=== PATIENT | female | born 1985 | race Caucasian/White ===

== ENCOUNTER 2021-06-14 18:36 | Emergency (ER) | payer OTHER, SELFPAY ==
[2021-06-14 18:49] VITALS: BP 106/76; PULSE 100; RESP 16; TEMP 37; O2SAT 100
--- NOTE | 2021-06-14 18:58 | ED.ABDPAIN ---
HPI - Abdominal Pain General Chief Complaint: Abdominal Pain Stated Complaint: abdomen pain Time Seen by Provider: 06/14/21 18:58 Source: patient Mode of arrival: ambulatory Limitations: no limitations History of Present Illness HPI narrative: 35-year-old female presents with complaint of epigastric pain for 4 days. States that initial pain started as hunger pain so she ate and then 20 minutes later would still feel hungry and she would eat again. States now she is no longer having hunger pains but is having sharp, squeezing epigastric pain. Patient is consistently belching, holding epigastric area. States she had normal bowel movement this morning. Coworkers gave her Zofran today at work due to nausea. Patient took test this a.m. and was negative. No abdominal surgery history other than . Afebrile. All systems reviewed and negative except as noted above. Related Data Home Medications Medication Instructions Recorded Confirmed duloxetine [Cymbalta] 30 mg PO DAILY 06/14/21 06/14/21 Allergies Allergy/AdvReac Type Severity Reaction Status Date / Time Cephalosporins Allergy Other Verified 06/14/21 19:00 codeine Allergy Unknown Verified 06/14/21 19:00 latex Allergy Unknown Verified 06/14/21 19:00 Penicillins Allergy Unknown Verified 06/14/21 19:00 Review of Systems Review of Systems: CONSTITUTIONAL: Denies fever, chills, or sweats. EYES: Denies visual changes, redness, or discharge. ENT: Denies rhinorrhea, congestion, sore throat, or otalgia. CARDIOVASCULAR: Denies chest pain, palpitations, or edema. RESPIRATORY: Denies cough or dyspnea. GASTROINTESTINAL: Reports abdominal pain, nausea. Denies vomiting, or diarrhea. GENITOURINARY: Denies dysuria or hematuria. SKIN: Denies rash or itching. MUSCULOSKELETAL: Denies back pain, joint pain, or myalgia. NEUROLOGIC: Denies headache, numbness, or weakness. PSYCHIATRIC: Denies anxiety or depression. All other systems reviewed are negative, except as documented in HPI. PMFSH Comments At time of signature, agree with nursing past medical, surgical, social and family history. There is no relevant family history pertinent to the presenting complaint. Exam Narrative: GENERAL: This is a well-nourished, well-developed patient. Patient is ill-appearing but in no distress. HEAD: normocephalic, atraumatic. EYES: PERRL. Sclera clear/white. Vision is grossly intact. EARS: External ears normal NOSE: External nose normal THROAT: Mucous membranes moist NECK: Neck supple, non-tender without lymphadenopathy, masses or thyromegaly. CARDIOVASCULAR: Regular rate and rhythm without murmurs, gallops, or rubs. RESPIRATORY: Clear to auscultation. Breath sounds equal bilaterally. No wheezes, rales, or rhonchi. GASTROINTESTINAL: Abdomen soft, nondistended. Tender palpation to epigastric region. Bowel sounds are hyper active. No hepato-splenomegaly, or palpable masses. No guarding. SKIN: warm, Dry, intact with no suspicious lesions or rash, good texture and turgor. NEURO: awake, alert, and oriented to person, place and time. There were no obvious focal neurologic abnormalities. EXTREMITIES: Normal range of motion to all extremities. BACK: Nontender without deformity. No CVA tenderness. Course Course Level of Care: Express Care Visit Vital Signs Vital signs: Vital Signs Temperature 37.0 C 06/14/21 18:49 Pulse Rate 100 06/14/21 18:49 Respiratory Rate 16 06/14/21 18:49 Blood Pressure 106/76 06/14/21 18:49 Pulse Oximetry 100 06/14/21 18:49 Temperature 37.0 C 06/14/21 18:49 Pulse Rate 100 06/14/21 18:49 Respiratory Rate 16 06/14/21 18:49 Blood Pressure 106/76 06/14/21 18:49 Pulse Oximetry 100 06/14/21 18:49 Transfer Transfered to: [place] Transfer rationale: Transfer to [place] ER for further evaluation of abdominal pain with CT scan, labs, pain well. Accepting physician: MD Bolton MDM - Abdominal Pain [facility] Narrative Medical
== END 2021-06-14 19:10 | disposition short-term general hospital (02) ==
PROVIDERS: Emergency Provider Nurse Practitioner Family
DX: R10.13 Epigastric pain (principal); F32.A Depression, unspecified
CPT/HCPCS: 99202; 99203; G0463

== ENCOUNTER 2021-06-14 19:26 | Emergency (ER) | payer OTHER, SELFPAY ==
--- NOTE | ~2021-06-14 | CT_ITS ---
EXAMINATION: CT abdomen pelvis w con DATE: 06/14/2021 21:00 INDICATION: epigastric pain, elevated lipase TECHNIQUE: Computed tomography (CT) of the abdomen and pelvis was performed with 100 mL Omnipaque-350 intravenous contrast. The dose-length product was 163.90 mGy-cm. COMPARISON: None FINDINGS: Lower thorax: A chest CT performed will be reported separately. Liver: Normal. Biliary/Gallbladder: Gallbladder is normal. No bile duct dilation. Spleen: Normal. Pancreas: No mass or duct dilation. Adrenals:No mass. Kidneys: No mass, stone, or hydronephrosis. GI tract: Marked water density wall thickening in the gastric antrum. No small or large bowel dilatio n. Normal appendix. Mesentery/Peritoneum: No ascites, mass, or free air. Retroperitoneum: No mass. Pelvis: Pelvic organs are within normal limits. Bones/Soft Tissues: Soft tissues and body wall unremarkable. Additional Findings: None. IMPRESSION: Severe antral gastritis. No CT evidence of pancreatitis. Reviewed, dictated and finalized at location K.
[2021-06-14 19:29] VITALS: BP 122/92; PULSE 94; RESP 16; TEMP 35.7; O2SAT 100
--- NOTE | 2021-06-14 19:33 | ECG_ITS ---
Measurements Intervals [place] Rate: 102 P: 79 FL: 120 QRS: 88 QRSD: 86 T: 52 QT: 321 QTc: 419 Interpretive Statements SINUS TACHYCARDIA ABNORMAL RHYTHM ECG NO PREVIOUS ECG AVAILABLE FOR COMPARISON Electronically Signed On 06-14-2021 21:22:01 CDT by Nata Lorenzana M.D.
--- NOTE | 2021-06-14 19:54 | ED.ABDPAIN ---
HPI - Abdominal Pain General Chief Complaint: Abdominal Pain Stated Complaint: upper abd pain Time Seen by Provider: 06/14/21 19:35 Source: patient and RN notes reviewed Mode of arrival: ambulatory Limitations: no limitations History of Present Illness HPI narrative: This is a 35 year old female who presents for evaluation of epigastric abdominal pain. Patient developed epigastric pain 5 days ago. She was doing fine and then she started to feel hungry. She states her hunger became worse and then she developed pain. Her pain has been constant and it has gradually worsened. She states her pain seems to resolve 10 minutes after eating but then her pain immediately returns. She describes her pain has sharp that radiates to her back. She denies nausea, vomiting, diarrhea or fever. SHe had normal BM today. She rates pain 7/10. Related Data Home Medications Medication Instructions Recorded Confirmed duloxetine [Cymbalta] 30 mg PO DAILY 06/14/21 06/14/21 Allergies Allergy/AdvReac Type Severity Reaction Status Date / Time Cephalosporins Allergy Other Verified 06/14/21 19:00 codeine Allergy Unknown Verified 06/14/21 19:00 latex Allergy Unknown Verified 06/14/21 19:00 Penicillins Allergy Unknown Verified 06/14/21 19:00 Review of Systems Review of Systems: All systems reviewed & are unremarkable except as noted in HPI and below Constitutional: Constitutional: Denies chills and Denies fever(s) Cardiovascular: Cardiovascular: Denies rapid heart rate, Denies radiating jaw, neck or arm pain and Denies slow heart rate Respiratory: Respiratory: Denies cough and Denies dyspnea Gastrointestinal: Gastrointestinal: Reports abdominal pain, Denies diarrhea, Denies nausea and Denies vomiting Genitourinary: Genitourinary: Denies hematuria Musculoskeletal: Musculoskeletal: Reports back pain [facility] Past Medical History Medical History (Updated 06/15/21 @ 00:00 by Joao Simpson) ADHD Surgical History Surgical History (Updated 06/14/21 @ 20:01 by Kiya Hitchcock MD) H/O LEEP Social History Social History (Updated 06/14/21 @ 20:00 by Kiya Hitchcock MD) Smoking status: Never smoker Exam Const: General: alert Nutritional Appearance: thin Orientation/consciousness: patient oriented x3 Eyes: EOM: EOMs intact bilaterally Resp: Effort & Inspection: normal respiratory effort and no retractions Auscultation: clear to auscultation bilaterally Cardio: Rate: regular rate Rhythm: regular rhythm Heart sounds: no murmurs GI: GI Palp: Yes Soft to palpation, Yes Tenderness to palpation present (GI) (epigastric), No Guarding due to palpation present (GI) and No Rigid due to palpation Auscultation: normal bowel sounds Back/Spine/Pelvis: Back: no CVA tenderness Skin: General skin exam: normal color Rashes: no rashes Neuro: General: patient oriented x3, moves all extremities and CN's II-XI intact bilaterally Psych: Mental Status: mental status grossly normal Affect: normal affect Course Reevaluation(s) Reevaluation #1: I Discussed case with hospitalist and she states patient can be discharged home and treated as outpatient. Does not think patient needs to be admitted. I discussed with patient. She states she is comfortable with discharge. She will return if symptoms worsen. Date: 06/14/21 Time: 23:46 Vital Signs Vital signs: Vital Signs Temperature 96.3 F L 06/14/21 19:29 Pulse Rate 94 06/14/21 19:29 Respiratory Rate 16 06/14/21 19:29 Blood Pressure 122/92 H 06/14/21 19:29 Pulse Oximetry 100 06/14/21 19:29 Temperature 96.3 F L 06/14/21 19:29 Pulse Rate 95 06/14/21 23:00 Respiratory Rate 14 06/14/21 23:00 Blood Pressure 107/82 06/14/21 23:00 Pulse Oximetry 100 06/14/21 23:00 MDM - Abdominal Pain Lab Data Attestation: I reviewed the patient's lab results. Result diagrams: 06/14/21 19:52 06/14/21 19:52 Labs: Lab Results
[2021-06-14 20:00] VITALS: BP 106/74; PULSE 95; RESP 14; O2SAT 100
[2021-06-14 20:10] LABS: Alanine Aminotransferase 12 U/L (4-35); Albumin Level 4.5 g/dL (3.5-5.1); Alkaline Phosphatase 42 U/L (38-126); Anion Gap 5 mmol/L (8-16); Aspartate Amino Transferase 26 U/L (14-36); Bilirubin,Total 0.2 mg/dL (0.2-1.3); Blood Urea Nitrogen 14 mg/dL (7-17); Calcium 8.9 mg/dL (8.4-10.2); Carbon Dioxide 26 mmol/L (22-30); Chloride 105 mmol/L (98-107); Estimated CRCL calculation 69 ml/min; Estimated Glomerular Filt Rate > 60; Glucose 91 mg/dL (65-110); Lipase 757 U/L (23-300); Potassium 4.2 mmol/L (3.4-5.0); Sodium 136 mmol/L (137-145)
[2021-06-14 20:11] LABS: Basophils Absolute Auto 0.1 K/mm3 (0.0-0.1); Basophils Percent Auto 1.1 % (0.2-1.2); Eosinophils Absolute Auto 0.2 K/mm3 (0-0.3); Eosinophils Percent Auto 2.9 % (0-4.4); Hematocrit 34.4 % (37.0-47.0); Hemoglobin 10.6 g/dL (12.0-15.0); Immature Granulocyte Absolute 0.02 K/mm3 (0.00-0.031); Immature Granulocyte Percent A 0.3 % (0-0.5); Lymphocytes Absolute Auto 2.24 K/mm3 (0.9-3.2); Lymphocytes Percent Auto 34.6 % (18.3-44.2); Mean Corpuscular HGB Conc 30.8 g/dl (32-36); Mean Corpuscular Hemoglobin 26.4 pg (26-34); Mean Corpuscular Volume 85.6 fl (80-100); Mean Platelet Volume 9.8 fl (7.4-10.4); Monocytes Absolute Auto 0.4 K/mm3 (0.1-0.6); Monocytes Percent Auto 6.5 % (2.6-8.5); Neutrophils Absolute Auto 3.5 K/mm3 (1.3-6.7); Neutrophils Percent Auto 54.6 % (45.5-73.1); Platelet Count Result 352 k/mm3 (150-375); Red Blood Count 4.02 M/mm3 (4.2-5.4); Red Cell Distribution Width 11.9 % (11.5-14.5); White Blood Count 6.5 K/mm3 (4.5-10.0)
[2021-06-14] MEDS: PANTOPRAZOLE SODIUM IV 40 MG VIAL IV PUSH (20:16)
[2021-06-14] MEDS: BELLADONNA ALK/PHENOB ELIX 10 ML, MAG HYDROX/ALUMINUM HYD/SIMETH 30 ML, LIDOCAINE HCL 2... PO (20:16)
[2021-06-14 20:20] VITALS: BP 107/81; PULSE 108; RESP 20; O2SAT 98
[2021-06-14 20:49] LABS: Add Urine Microscopic? NO; Appearance Urine Clear (Clear); Bilirubin Urine Negative (Negative); Blood Urine Negative (Negative); Color Urine Yellow (Yellow); Glucose Urine UA Negative (Negative); Ketones Urine Negative (Negative); Leukocyte Esterase Ur Negative LEU/UL (Negative); Nitrate Urine Negative (Negative); Protein Urine Negative (Negative); Specific Grav Ur 1.015 (1.001-1.035); Urobilinogen Urine Negative mg/dL (<2.0)
[2021-06-14 21:00] VITALS: BP 112/84; PULSE 103; RESP 13; O2SAT 99
[2021-06-14] MEDS: SODIUM CHLORIDE 0.9% IV 1,000 ML 999 ML IV CONT (21:17)
[2021-06-14 22:00] VITALS: BP 116/83; PULSE 97; RESP 12; O2SAT 96
[2021-06-14] MEDS: ONDANSETRON INJ 4 MG/2 ML VIAL IV PUSH (22:28)
[2021-06-14] MEDS: MORPHINE SULFATE (*CRX) 4 MG/ML INJ IV PUSH (22:28)
[2021-06-14 23:00] VITALS: BP 107/82; PULSE 95; RESP 14; O2SAT 100
== END 2021-06-15 00:25 | disposition home or self-care (01) ==
PROVIDERS: Family Medicine; Emergency Provider General Practice
DX: K29.00 Acute gastritis without bleeding (principal); F90.9 Attention-deficit hyperactivity disorder, unspecified type
CPT/HCPCS: 36415; 74177; 80053; 81003; 81025; 83690; 85025; 93005; 96361; 96374; 96375; 99284; A9270; C9113; J2270; J2405; J7030; Q9967

== ENCOUNTER 2023-06-21 10:45 | Outpatient (CLI) | payer OTHER, SELFPAY ==
--- NOTE | ~2023-06-21 | MR_ITS ---
EXAMINATION: MR brain/brain stem wo/w con DATE: 06/21/2023 11:24 INDICATION: Syncope. TECHNIQUE: Magnetic resonance imaging (MRI) of the brain and brainstem was performed without and with 8 mL MultiHance intravenous contrast. COMPARISON: None. FINDINGS: There is no intracranial hemorrhage, acute infarction, or abnormal intracranial mass lesion . The ventricles are normal in size. There is mild mucosal thickening in the ethmoid sinuses. The mas toid air cells are normal. The orbits are normal. IMPRESSION: 1. Normal brain. Reviewed, dictated and finalized at location A. IMPRESSION: 1. Normal brain.
== END 2023-06-21 10:46 ==
LOC: MICIMG 10:46
PROVIDERS: PCP Nurse Practitioner; Visit Provider Nurse Practitioner
DX: R40.20 Unspecified coma (principal); R29.810 Facial weakness
CPT/HCPCS: 70553; A9577

== ENCOUNTER 2024-02-22 22:12 | Emergency (ER) | payer OTHER, SELFPAY ==
[2024-02-22 22:20] VITALS: BP 107/68; PULSE 83; RESP 18; TEMP 36.4; O2SAT 100
[2024-02-23] MEDS: LIDOCAINE, EPINEPHRINE, TETRACAINE VISCOUS SOLN 3 ML TOPICAL (00:11)
[2024-02-23 00:58] VITALS: BP 115/67; PULSE 76; RESP 17; O2SAT 100
--- NOTE | 2024-02-23 08:00 | ED.HEATRA ---
HPI - Head Injury General Chief complaint: Head Injury Stated complaint: Fell hit head Time Seen by Provider: 02/22/24 22:16 History of Present Illness HPI Narrative: 38-year-old female presents to the emergency department a scalp laceration after falling and hitting her back of her head against brick. She fell from a seated position and struck her head against a brick but did not lose consciousness. Does not take any blood thinner medications. Bleeding is controlled direct pressure. Pain is 2/10 intensity. No nausea, vomiting, vision change, headache, abdominal pain, altered mentation. This was witnessed by her provides collateral formation at bedside patient was otherwise in her normal state of health. No history of any traumatic injuries. Related Data Home Medications ?Medication ?Instructions ?Recorded ?Confirmed ?Last Taken ?Type duloxetine 30 mg capsule,delayed 30 mg PO DAILY 06/14/21 06/14/21 Unknown History release (Cymbalta) Allergies Allergy/AdvReac Type Severity Reaction Status Date / Time Cephalosporins Allergy Other Verified 06/14/21 19:00 codeine Allergy Unknown Verified 06/14/21 19:00 latex Allergy Unknown Verified 06/14/21 19:00 Penicillins Allergy Unknown Verified 06/14/21 19:00 Review of Systems Review of Systems: As [facility] Past Medical History Medical History ADHD Surgical History Surgical History H/O LEEP Social History Social History Smoking status: Never smoker Exam Narrative: GENERAL: [Well-appearing, well-nourished, and in no acute distress.] HEAD: Normocephalic, posterior scalp hematoma with 3 cm linear laceration with no skeletal exposure, no palpable skull defect or deformity. EYES: [PERRLA and EOMI.] ENT: Nares clear, no rhinorrhea or epistaxis. Mucous membranes moist. NECK: Supple. CHEST: [Clear to auscultation. No respiratory distress.] HEART: [Regular rate and rhythm]. No murmur heard. [Normal peripheral pulses.] ABDOMEN: [Soft, nondistended], [nontender], [No rigidity or guarding] EXTREMITIES: Normal range of motion. [No edema.] SKIN: Warm, dry, no rash. NEURO: [No focal deficits]. Alert and oriented [x3.] PSYCH: [Normal mood and affect.] Course Vital Signs Vital signs: Vital Signs Temperature 36.4 C 02/22/24 22:20 Pulse Rate 83 02/22/24 22:20 Respiratory Rate 18 02/22/24 22:20 Blood Pressure 107/68 02/22/24 22:20 Pulse Oximetry 100 02/22/24 22:20 Oxygen Delivery Room Air 02/22/24 22:20 Temperature 36.4 C 02/22/24 22:20 Pulse Rate 76 02/23/24 00:58 Respiratory Rate 17 02/23/24 00:58 Blood Pressure 115/67 02/23/24 00:58 Pulse Oximetry 100 02/23/24 00:58 Oxygen Delivery Room Air 02/22/24 22:20 Procedures Laceration Laceration 1: Date: 02/23/24 Time: 00:30 Site: scalp Side (If applicable): left Size (cm): 3 Description: linear and clean Depth: simple, single layer Local Anesthetic: lidocaine 2% and with epi Amount of anesthesia used (mL): 5 Pre-repair: wound explored, irrigated extensively and minor debridement ====== Skin Level ====== Skin layer closed with: shakira (9) ====== Subcutaneous Layer ====== ====== Muscle Layer ====== ====== Tendon Layer ====== Dressing: pressure dressing and sterile gauze MDM - Head Injury MDM Narrative Medical decision making narrative: 38-year-old female presents with a closed head injury and laceration to the posterior left scalp which is 3 cm and not actively bleeding. Denies any blood thinner use, no loss of consciousness. Overall very low risk factors for any kind of intracranial pathology and is able to meet [facility] head CT rules to rule out any kind of intracranial pathology or require CT images at this time. Vital signs are reassuring with no neurological deficits. Will close the wound primarily which was repaired with shakira as described above. Patient stable for discharge home after hemostasis. Will return for staple removal and wound check. Discharge Plan Discharge Clinical Impression: Closed head injury, Complex laceration of scalp Patient Disposition: Home, Self-Care Condition: Stable Instructions: Antibiotic Form, Laceration (DC), Head Injury (ED), Staple Care (ED) Additional Instructions: You had a 3 cm laceration in the back of her scalp that was repaired with a total from 9 shakira. Keep the area covered and dry for the next 24 hours and then you can go back to resuming normal shower activity but do not be aggressive with the area. I do expect some oozing onto the bandages but if you have any significant hemorrhage or continued bleeding you need to return to the emergency department. Follow-up in 7-10 days for staple removal either here in the emergency department, PCPs office, urgent care or any other medical provider. Patient Language: Micronesian Prescriptions: No Action duloxetine [Cymbalta] 30 mg Capsule,Delayed Release(Dr/Ec) 30 mg PO DAILY pantoprazole [Protonix] 40 mg tablet,delayed release (DR/EC) 40 mg PO BID 14 Days Qty: 28 0RF sucralfate 1 gram tablet 1 g PO QID 14 Days Qty: 56 0RF dicyclomine 10 mg capsule 10 mg PO QID PRN (Reason: abdominal pain) Qty: 14 0RF Follow-up/Referrals: Manjula,SHELLY Vyas [Primary Care Provider] - Time of Disposition: 00:42
--- OUTSIDE RECORDS SUMMARY | 2024-02-27 09:29 | XMS_ITS | Continuity of Care Document ---
Author Name [facility] Organization [facility] Care Team Providers Care Senior Quality Assurance Engineer Name Role Phone [facility] Unavailable Unavailable Problems Combined list of problems from Department of Defense and Veterans Affairs facilities. It does not include entries that were removed or entered in error. Problem Status Onset Date Problem Type Date of Resolution Comments Source visit for: screening exam cardiovascular disorders Active Condition DoD Lymph Nodes Enlarged Active Condition DoD sinusitis Active Condition DoD visit for: administrative purpose Active Condition DoD palpitations Active Condition [facility] female pelvic pain Active Condition [facility] Gynecologic Services Intrauterine Device (IUD) Removal Inactive Condition [facility] Observation For Suspected Condition Active Condition [facility] primary lymphadenitis Inactive Condition [facility] control method - IUD Active Condition DoD migraine headache Active Condition DoD anxiety disorder NOS Active Condition [facility] atypical chest pain Inactive Condition Symptom improve ment on Paxil. Normal GXT, and holter monitor. Most likely anxiety component to chest pain. Advised to avoid OTC stimulants, caffeine and nicotine DoD Patient Counseling: Active Condition 21 yo female wi th hx of chest discomfort off and on for the past year = she has felt chest tightness and squeezing feeling of her heart up to several times a day. Symptoms have increased. Prior hx of having had an CA at age [age] years old when she had had an OD as part of a suicide gesture. also has noted to have her heart skip a beat at times. also has had hx of depression. Denies SI/HI. Would like to have medication treatment again at this time. previously took Paxil 15 mg po qd with good results. also would like to go back on an OCP. nonsmoker. DoD visit for: contraceptive surveillance pill Active Condition 21 yo fema le with hx of chest discomfort off and on for the past year = she has felt chest tightness and squeezing feeling of her heart up to several times a day. Symptoms have increased. Prior hx of having had an CA at age [age] years old when she had had an OD as part of a suicide gesture. also has noted to have her heart skip a beat at times. also has had hx of depression. Denies SI/HI. Would like to have medication treatment again at this time. previously took Paxil 15 mg po qd with good results. also would like to go back on an OCP. nonsmoker. DoD depression Active Condition 21 yo fem adilene with hx of chest discomfort off and on for the past year = she has felt chest tightness and squeezing feeling of her heart up to several times a day. Symptoms have increased. Prior hx of having had an CA at age [age] years old when she had had an OD as part of a suicide gesture. also has noted to have her heart skip a beat at times. also has had hx of depression. Denies SI/HI. Would like to have medication treatment again at this time. previously took Paxil 15 mg po qd with good results. also would like to go back on an OCP. nonsmoker. DoD chest pain Active Condition 21 yo fem adilene with hx of chest discomfort off and on for the past year = she has felt chest tightness and squeezing feeling of her heart up to several times a day. Symptoms have increased. Prior hx of having had an CA at age [age] years old when she had had an OD as part of a suicide gesture. also has noted to have her heart skip a beat at times. also has had hx of depression. Denies SI/HI. Would like to have medication treatment again at this time. previously took Paxil 15 mg po qd with good results. also would like to go back on an OCP. nonsmoker. [facility] visit for: laboratory Inactive Condition [facility] otitis externa acute Active Condition [facility] Gynecologic Service Prescrip Of Contracept Agent - Repeat Rx Active Condition [facility] Gynecologic Services Contraceptive Management Active Condition [facility] - incomplete Active Condition POST OP EXAMPRE OP DX: incomplete sab, possible ectopic preg.PROCEDURE: 1. suction d+c 2. diagnostic scopeSURGEONS: Annelise Norman: 07Physical complaints - none Voiding - no difficultyIncision - well healedDiet - reg, no nauseaPain meds - noneVag bleeding - minimal spottingSexual activity - none at this timePhysical exercise - normal activityPathology - - 8Mar sepcimin shows products of conception 11Mar Surgical specimin shows blood clotEXAMnormal vitals afebrileAbd soft nontenderincisions well healedPLANsab ectopic review counselingrecommend against x3 monthcounseling regarding ortho evra patchrx ortho evrafollow up prn/annual examWJYWJY [facility] ectopic Active Condition A/ P: 20 yo F with above hx possible ectopic on PE and clinical findings, RF of smoking. Pt still having abdominal pain, taking 1 vicoden q6hrs. Pain is unresolved since ER viist on Saturday. Stat Jj today shows drop from 5000 to 1200. Tranvaginal US showing questionable R ovarian mass, ?ectopic. STAT CBC pending. IVF started in clinic, auto air conditioning mechanic team paged for in patient evaluation, admission and possible surgery later this evening. Dr. Shields present in room for PE and discussed with pt the need for surgery. Pt and agreed with the current plan. -Discussed with Dr. Shields [facility] Medications Combined list of outpatient medications from Department of Defense and Veterans Affairs facilities.Medications provided include 1) outpatient medications from the last 15 months, and 2) patient-reported medications. Medication Details Route Status Patient Instructions Prescription Expires Prescription Number Last Dispense Date Ordering Provider Order Date Order Qty Source ALBUTEROL SULFATE HFA (albuterol sulfate), 90 MCG, HFA AER AD, INHALATION, LUPIN PHARMACEU, 8.5 g CANISTER Active [id number] 4 2023 8.5 Pharmac y Data Transac tion Service Facilit y AMITRIPTYLI NE HCL (amitriptyl ine HCl), 25 MG, TABLET, ORAL, UNICHEM PHARMAC, 1000 ea. BOTTLE Active [id number] 4 2023 90 Pharmac y Data Transac tion Service Facilit y MIDODRINE HCL (midodrine HCl), 5 MG, TABLET, ORAL, ADVAGEN PHARMA, 100 ea. BOTTLE Active [id number] 4 2023 180 Pharmac y Data Transac tion Service Facilit y MIDODRINE HCL (MIDODRINE HCL), 5MG, TABLET, ORAL, ForsitecTEX ZENON, 100 ea. BOTTLE Active [id number] 4 2023 60 Pharmac y Data Transac tion Service Facilit y PREDNISONE (prednisone ), 20 MG, TABLET, ORAL, NOVITIUM/AN I PH, 500 ea. BOTTLE Active [id number] 4 2023 31 Pharmac y Data Transac tion Service Facilit y ZOLPIDEM TARTRATE (ZOLPIDEM TARTRATE), 5MG, TABLET, ORAL, AUROBINDO PHARM, 100 ea. BOTTLE Active [id number] 4 2023 30 Pharmac y Data Transac tion Service Facilit y ZOLPIDEM TARTRATE (ZOLPIDEM TARTRATE), 5MG, TABLET, ORAL, AUROBINDO PHARM, 100 ea. BOTTLE Active [id number] 4 2023 30 Pharmac y Data Transac tion Service Facilit y ZOLPIDEM TARTRATE (ZOLPIDEM TARTRATE), 5MG, TABLET, ORAL, AUROBINDO PHARM, 100 ea. BOTTLE Active [id number] 4 2023 30 Pharmac y Data Transac tion Service Facilit y Allergies, Adverse Reactions, Alerts Combined list of allergies from Department of Defense and Veterans Affairs facilities. It does not include entries that were removed or entered in error. Substance Category Reaction Severity Reaction type Status Date Reported Comments Source CEPHALOSPORINS Drug allergy (disorder) active [address] [place] [address] Arben HOLLIS ([facility]) cephalosporins Drug allergy vomitting Severe Active [facility] LATEX Drug allergy (disorder) active [address] [place] [address] Arben HOLLIS ([facility]) Latex Allergy to substance Swelling (finding) Moderate Active [address] [place] [address] Immunizations Combined list of available immunizations from the Department of Defense and Veterans Affairs facilities. Immunization Series Date Given Administered By Site Reaction Lot Number CVX Code Drug Trench Digger Status Comments Source influenza, injectable, quadrivalent, preservative free 2020 FELICITAS, () Not Given influenza , injectabl e, quadrival ent, preservat valerie free DoD Influenza, injectable, MDCK, preservative free, quadrivalent 2019 WILLIAMSON-EISM AN, () Not Given Influenza , injectabl e, MDCK, preservat valerie free, quadrival ent DoD influenza, injectable, quadrivalent, preservative free 2018 WILLIAMSON-EISM AN, () Not Given influenza , injectabl e, quadrival ent, preservat valerie free DoD Vital Signs Combined list of inpatient and outpatient Vital Signs from Department of Defense and Veterans Affairs, ranging from 12 months to all on record, depending upon the facility. Vital Sign Value Date Comments Source No data available for this section Ambulatory Pharmacy Encounters Combined list of: 1) Encounters from Department of Veterans Affairs facilities going back up to thelast 18 months. 2) Encounters from the Department of Defense facilities going back up to 280 months. Location Location Details Encounter Type Encounter Number Reason For Visit Attending Provider ADM Date DC Date Status Disposition Source Marcelo BELINDA-Pearson DIRECT TO [facility] FROM OTHER THAN ER OR [facility] [id number] FLAKITO SHIELDS 03/[address] [facility](Medical Microbiologist ecology Clinic) OUTPATIENT [id number] spontan eous AB SHANNON GIPSON 03/20 Released w/o Limitations [facility](G ynecolo gy Clinic) [facility](Medical Microbiologist ecology Clinic) OUTPATIENT [id number] followu p MARCIO NORMAN 03/28 Released w/o Limitations [facility]o gy Clinic) [facility] OUTPATIENT [id number] F/U B.C.,EA R YOVANI GOMEZ 06/27 Released w/o Limitations [facility](M adigan FP Red Team [facility]) [facility] OUTPATIENT [id number] change control ,FOSTER Wilson 10/11 Released w/o Limitations [facility](M adigan FP Red [facility]) [facility](Car diology Clinic) OUTPATIENT [id number] GXT MERGED WITH [facility] SHANIA NGUYEN 10/18 Released w/o Limitations [facility](C ardiolo gy Clinic) [facility]) OUTPATIENT [id number] GXT/CROW ADMILL TEST LUIS MANUEL DUNBAR 10/18 Released w/o Limitations [facility](F [facility] ) [facility](Car diology Clinic) OUTPATIENT [id number] holtor monitor / heart x14yr MIESHA PADILLA 11/01 Released w/o Limitations [facility] Zaragoza(C ardiolo [facility]) [facility](Mad [facility] [employer]) OUTPATIENT [id number] FU TESTING INNA WOODWARD Brien 11/06 Released w/o Limitations [facility] aZragoza([facility] [employer]) [facility] [place]([facility] Internal Medicine) OUTPATIENT [id number] annual PAP/bir th control BRIDGETT OTTO Antoine 04/04 Released w/o Limitations [facility] [place] Interna l Medicin e) [facility]Emerge ncy Room Fax [phone]) OUTPATIENT [id number] JOSE ALFREDO PEDERSON 04/14 Released w/o Limitations [facility] [place](Ricarda gency Room Fax [phone]) [employer] [place]([facility] Internal Medicine) OUTPATIENT [id number] F/U TO ER FOR HEART PAIN [place] Antoine 04/21 Released w/o Limitations [facility] [place]([facility] Interna l Medicin e) [place](Medical Microbiologist Fax [phone]) OUTPATIENT [id number] MIGRAIN E HEADACH E JACKI MARIN 04/26 Released w/o Limitations [facility] [place](Medical Microbiologist Fax [phone]) [facility] [place]([facility] Internal Medicine) OUTPATIENT [id number] FOLLOW UP FOR HEART PROBLEM S [place]GETT [place] Antoine 04/26 Released w/o Limitations [facility] [place]([facility] Interna l Medicin e) [facility](Emerge ncy Room Fax [phone]) OUTPATIENT [id number] RAGHAVENDRA NICKERSON 04/27 Released w/o Limitations [facility] [place]Ricarda gen[place] Room Fax [phone]) [facility] Internal Medicine) TELE CONSULT [id number] ARTIS GRANGER 05/01 [facility] [place]([facility] Interna l Medicin e) [facility] [place]([facility] Internal Medicine) OUTPATIENT [id number] FU ON HEART BRIDGETT OTTO 05/02 Released w/o Limitations [facility] [place]([facility] Interna l Medicin e) [place] Internal Medicine) TELE CONSULT [id number] SUMAYA BERMUDEZ Yaakov 05/05 [facility] [place] Interna l Medicin e) [place] Internal Medicine) TELE CONSULT [id number] Medicat ion ARTIS GRANGER 05/06 [facility] [place] Interna l Medicin e) [place]Cardio logy) OUTPATIENT [id number] PALPITA YONATAN MI 05/10 Released w/o Limitations [facility] [place](Card [place]ology) [place] [address](Ech o [facility]) OUTPATIENT [id number] Tele Echo KRYSTINA DESAI 05/10 Released w/o Limitations [facility] [place] [address](E cho [facility]) Procedures Combined list of: 1) Procedures from Department of Veterans Affairs facilities going back up to thelast 18 months, not all VA non-surgical procedures are included; 2) All procedures from the Department of Defense facilities. Procedure Procedure Type Code Date Perfomer Comments Sourc e No data available for this section Ambulatory Pharmacy Echo Congenital Cardiac Defects Transthoracic W/ M-Mode, Spectral, & Color Flow Echo Congenital Cardiac Defects Transthoracic W/ M-Mode, Spectral, & Color Flow 32012 010 KRYSTINA DESAI [facility] Echocardiogram Doppler Echocardiogram Doppler 33055 010 YONATAN CHAN [facility] Echo (2-D) Mode Complete 010 YONATAN CHAN [facility] Gynecologic Services Intrauterine Device (IUD) Removal Gynecologic Services Intrauterine Device (IUD) Removal 74198 010 JACKI MARIN [facility] Continuous ECG Holter Monitor 24 Hour 007 YANY LEONARDO [facility] Exercise Test Performance of Tracing Only Exercise Test Performance of Tracing Only 09313 007 SHANIA NGUYEN [facility] Cardiac Stre Test Interpretation And Report Only Cardiac Stress Test Interpretation And Report Only 99016 LUIS MANUEL DUNBAR [facility] Cardiac Stre Test Physician Supervision Only Cardiac Stress Test Physician Supervision Only 97776 LUIS MANUEL DUNBAR [facility] ECG 12-Lead ECG 12-Lead 02982 FOSTER YUNG ekg done by Ms. Del Toro results show NSR with sinus arrythmia. [facility] Physician Supervised Injection Intramuscular Physician Supervised Injection Intramuscular 78919 YOVANI GRIFFITHS [facility] Injection, medroxyprogesterone acetate for contraceptive use, 150 mg YOVANI GRIFFITHS [facility] Ultrasound Pelvic SHANNON GIPSON [facility] DOPPLER ECHOCARDIOGRAPHY, PULSED WAVE AND/OR CONTINUOUS WAVE WITH SPECTRAL DISPLAY (LIST SEPARATELY IN ADDITION TO CODES FOR ECHOCARDIOGRAPHIC IMAGING); COMPLETE [facility] ELECTROCARDIOGRAM, ROUTINE ECG WITH AT LEAST 12 LEADS; INTERPRETATION AND REPORT ONLY [facility] REMOVAL OF INTRAUTERINE DEVICE (IUD) [facility] INFUSION, NORMAL SALINE SOLUTION , 1000 CC [facility] OPERATOR ENGINEER ELECTROCARDIOGRAPHIC RECORDING UP TO 48 HOUR,CONT RHYTHM RECORDING & STORAGE;INCLUD RECORDING,SCANNING ANAL W REPORT,REVIEW &INTERPRETATION,A PHYSICIAN/OTHER QUALIFIED HEALTH NOTCHING MACHINE OPERATOR [facility] CARDIOVASCULAR STRESS TEST USING MAXIMAL OR SUBMAXIMAL TREADMILL OR BICYCLE EXERCISE, CONTINOUS ELECTROCARDIOGRAPHIC MONITORING, PHARMACOLOGIC STRESS; TRACING ONLY, W/O INTERPRET AND REPORT [facility] CARDIOVASCULAR STRESS TEST USING MAXIMAL OR SUBMAXIMAL TREADMILL OR BICYCLE EXERCISE, CONTINOUS ELECTROCARDIOGRAPHIC MONITORING, PHARMACOLOGIC STRESS; INTERPRETATION AND REPORT ONLY [facility] ELECTROCARDIOGRAM, ROUTINE ECG WITH AT LEAST 12 LEADS; WITH INTERPRETATION AND REPORT [facility] THERAPEUTIC, PROPHYLACTIC OR DIAGNOSTIC INJECTION (SPECIFY SUBSTANCE OR DRUG); SUBCUTANEOUS OR INTRAMUSCULAR [facility] INTRAVENOUS INFUSION, HYDRATION; INITIAL, 31 MINUTES TO 1 HOUR [facility] ASPIRATION CURETTAGE FOLLOWING DELIVERY OR [facility] LAPAROSCOPY [facility] ULTRASOUND, PELVIC (NONOBSTETRIC), REAL TIME WITH IMAGE DOCUMENTATION; COMPLETE [facility] INJECTION, DOLASETRON MESYLATE, 10 MG [facility] ECHOCARDIOGRAPHY,TRANST HORACIC,REAL-TIME W IMAGE DOCUMENTATION (2D),INCLUDES M-MODE RECORDING,WHEN PERFORMED,COMPLETE,WITH SPECTRAL DOPPLER ECHOCARDIOGRAPHY,AND W COLOR FLOW DOPPLER ECHOCARDIOGRAPHY 010 [facility] Social History Combined list of available smoking, tobacco, and other social history from Department of Defense and Veterans Affairs facilities. Social History Type Response Date Comment Sourc e Sexual Orientation Ambula tory Pharmacy Gender identity Ambulator y Pharmacy Female Ambulatory Pha rmacy This section is an empty soc ial history section. DoD Assessment and Plan Combined list of future care activities from Department of Defense and Veterans Affairs facilities (e.g., assessment and plan notes, appointments, orders, and referrals). Additional future care activities may be listed in the Plan of Care section. Result Assessment and Plan Date Source Assessment and Plan Extracted from:Title : Optometry- Laser baseline Author: QUAN SILVA, OD Date: 12/31/22 1.?EXAM, FORMAL OCCUPATIONAL HEALTH PROGRAM INCLUDING HEARING CONSERVATION PROGRAM, ESTABLISH BASELINE PRIOR TO OCCUPATIONAL WORKPLACE EXPOSURE Laser Eye Exam completed today. Member meets visual acuity, color vision, and Amsler grid requirements?for?DAFSC?without correction.?No suspected pre-existing vision issue was identified during this screening. Member was educated this is not a full exam and they should schedule a comprehensive eye exam at their earliest convenience. Paperwork completed and provided to patient. ASIMS has been updated. ?Diagnosis: ?1. ?EXAM, FORMAL OCCUPATIONAL HEALTH PROGRAM INCLUDING HEARING CONSERVATION PROGRAM, ESTABLISH BASELINE PRIOR TO OCCUPATIONAL WORKPLACE EXPOSURE ?Comment:?Ordered:??[employer] w/Interpretation + Report [id number]; 12/27/2022 14:00:00 CDT ? Computerized Ophthalmic Imaging Retina [id number]; 12/27/2022 14:00:00 CDT ? Ophthalmological [place] [id number]; 12/27/2022 14:00:00 CDT ? End of Orders ? 02/27/2024 Ambulatory Pharmacy Functional Status Combined list of recent functional and cognitive assessments recorded at [facility] and [facility] [place] Functional [place] Measurement (FIM) Scale: 1 = Total Assistance (Subject = 0% +), 2 = Maximal Assistance (Subject = 25% +), 3 = Moderate Assistance (Subject = 50% +), 4 = Minimal Assistance (Subject = 75% +), 5 = Supervision, 6 = Modified [place] (Device), 7 = Complete [place] (Timely, Safely). Assessment Date/Time Source Assessment Type Assessment Skill Assessment Score Assessment Details No data available for this section
--- OUTSIDE RECORDS SUMMARY | 2024-02-27 09:31 | XMS_ITS | Clinical Summary ---
Author Organization [facility] Address [address] [place] [address]. [place] [address] [place] [address] Care Team Providers Care Plan Coordinator Name Role Phone Jacquie Fair NP Primary Care Provider [phone] [phone] Allergies Active Allergy Reactions Criticality Noted Date Comments Cephalosporins Diarrhea,Vomiting High 02/28/2021 CDIF Toxic Megacolon and Cdiff) Codeine Unknown,Shakiness High 02/28/2021 Latex Rash Low 12/04/2017 Methylprednisolone Vomiting,Diarrhea Medium 04/13/2022 Vomiting, diarrhea Vomiting, diarrhea Vomiting, diarrhea Penicillins Rash Low 02/28/2021 Wound Dressing Adhesive Rash Medium 07/09/2022 Adhesive on heart monitors Medications zolpidem (AMBIEN) 5 MG tabletIndications: Primary insomnia TAKE 1 TABLET(5 MG) BY MOUTH EVERY NIGHT NEEDED FOR SLEEP 30 tablet 05/28/19 24 Active Additional Information Patient not taking.Reported on 10/07/2023 albuterol sulfate HFA 108 (90 Base) MCG/ACT inhalerIndications :Community acquired pneumonia, unspecified laterality,Wheezin g,Acute cough Inhale 2 puffs into the lungs every 4 (four) hours as needed for Wheezing or Shortness of breath. 8.5 g 3 07/18/19 24 Active ondansetron (ZOFRAN-ODT) 4 MG disintegrating tabletIndications: Nausea and vomiting, unspecified vomiting type Take 1 tablet (4 mg total) by mouth every 8 (eight) hours as needed for Nausea. 20 tablet 10/07/19 24 Active SUMAtriptan (IMITREX) 50 MG tabletIndications: Migraine without aura and without status migrainosus, not intractable Take 1 tablet (50 mg total) by mouth 2 (two) times daily as needed for Migraine. Max of 4 tablets (200 mg) in 24 hours. 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 Mitral valve regurgitation 12/05/2017 Mild intermittent asthma without complication (H HS/HCC) 10/07/2017 Resolved Problems Problem Noted Date Diagnosed Date Resolved Date Alternating constipation and diarrhea 07/18/2022 10/07/2023 Antral gastritis 07/05/2021 10/07/2023 Bilateral hearing loss, unsp ecified hearing loss type 07/05/2021 10/07/2023 Mass of neck 02/28/2021 12/12/2021 Encounters Date Type Department Care Team Description 01/14/2024 Scan [facility] HEALTH INFO SRVCS Scanned, Doc Med Group from Last 3 Months Immunizations Name Administration Dates Next Due Influenza Adult (Generic) 01/21/2023,,01/25/2020,2018,12/23/2017 MODERNA COVID-19 (12+) MRNA, LNP-S, PF, 100 MCG/ 0.5 ML DOSE 05/19/2020,04/21/2020 Pneumococcal (Prevnar 20) 01/21/2023 Tdap (Generic) 07/09/2018 Family History Medical History Relation Comments Diabetes Brother Kidney Disease Maternal Grandfather Miscarriages / Stillbirths Paternal Grandmother Miscarriages / Stillbirths Sister Relation Status Comments Brother Father Alive Maternal Grandfather Mother Alive Paternal Grandmother Sister Social History Tobacco Use Types Packs/Day Years Used Date Smoking Tobacco: Every Day Cigarettes Passive Smoke Exposure: Yes Smokeless Tobacco: Never Tobacco Cessation:Ready to Q uit: No; Counseling Given: Yes Comments:Smokes 3 cigs per day. Alcohol Use Standard Drinks/Week Comments Yes 0 (1 standard drink = 0.6 oz pure alcohol) social, less than 1 drink per week PHQ-2 Answer Date Recorded Patient Health Questionnaire-2 Score 0 06/06/2023 Comments No Sex and Gender Information Value Date Recorded Sex Assigned at Not on file Legal Sex Female 9:41 PM HUMAN RESOURCES REPRESENTATIVE Gender Identity Female 04/24/2021 2:22 PM HUMAN RESOURCES REPRESENTATIVE Sexual Orientation Choose not to disclose 2021 2:22 PM HUMAN RESOURCES REPRESENTATIVE Last Filed Vital Signs Vital Sign Reading Time Taken Comments Blood Pressure 98/70 10/07/2023 10:29 AM CDT Pulse 60 10/07/2023 10:29 AM CDT Temperature 36.2 ??C (97.1 ??F) 10/07/2023 10:29 AM C DT Respiratory Rate 15 10/07/2023 10:29 AM CDT Oxygen Saturation 100% 10/07/2023 10:29 AM CDT Inhaled Oxygen Concentration - - Weight 41.4 kg (91 lb 3.2 oz) 10/07/2023 10:29 A M CDT Height 157.5 cm (5' 2 ) 10/07/2023 10:29 AM CDT Body Mass Index 16.68 10/07/2023 10:29 AM CDT Plan of Treatment Health Maintenance Due Date Last Done Comments Cervical Cancer Screening Pap Smear (Age 30 to 64) Every 3 Years 1985 Hepatitis B Vaccines (1 of 3 - 19+ 3-dose series) 2004 Annual Physical 07/18/2023 07/17/2022, 02/28/2021 COVID-19 Vaccine ( season) 2023 01/21/2023, 05/19/2020, 04/21/2020 Influenza Adult (#1) 2023 01/21/2023, 02/01/2021, 01/25/2020, Additional history exists Cervical Cancer Screening Pap with HPV Testing (Age 30 to 64) Every 5 Years 11/30/2024 12/01/2019 Cervical Cancer Screening with HPV 11/30/2024 DTaP, Tdap and Td Vaccines (2 - Td or Tdap) 07/09/2028 07/09/2018 Hepatitis C Completed 07/31/2022 Pneumococcal Vaccine: Pediatrics (0 to 5 Years) and At-Risk Patients (6 to 64 Years) Completed 01/21/2023 HPV Vaccines Aged Out No longer eligi ble based on patient's age to complete this topic Meningococcal Vaccine Aged Out No jackie annalee eligible based on patient's age to complete this topic RSV Immunizations Under 20 Months Aged Out No longer eligible based on patient's age to complete this topic Procedures Procedure Name Priority Date/Time Associated Diagnosis Comments HEPATITIS C ANTIBODY W/RFX TO HCV RNA Routine 07/31/2022 10:49 AM CDT OUTSIDE CYTOPATH CERV/VAG INTERPRET (PAP) Routine 12/01/2019 from Last 3 Months or Most Recently Relevant to Health Maintenance Results * HEPATITIS C ANTIBODY W/RFX TO HCV RNA (07/31/2022 10:49 AM CDT) HEPATITIS C AB NON-REACT ANKIT NON-REACT ANKIT [facility] SIGNAL TO CUTOFF 0.07 <1.00 [facility] Comment: HCV antibody was non-reactive. There is no laboratory evidence of HCV infection. In most cases, no further action is required. However, if recent HCV exposure is suspected, a test for HCV RNA (test code 75250) is suggested. For additional information please refer to http://education.[employer] ([employer])/faq/IXK87g1 (This link is being provided for informational/ educational purposes only.) 07/31/2022 10:4 9 AM CDT 07/31/2022 10:49 AM CDT Narrative Resulting Agency Comment Performing Organization Information: ?Site ID: [id number] ?Name: [employer] [facility] ?Address: [address] [place] [address] ?Director: Nicolle Roach MD us Jacquie Idania Weinacht [facility] Final Res ult [facility] [address] [place] [address], * PAP SMEAR WITH HPV (12/01/2019) 12/01/2019 us Documents Scanned SCANNING Final Result [facility] ONBASE from Last 3 Months or Most Recently Relevant to Health Maintenance Insurance [facility] Care Teams Plan Coordinator Relationship Specialty Start Date End Date Jacquie Fair NP [address] [place] [address] PCP - General NURSE PRACTITIONER 06/20/21
--- OUTSIDE RECORDS SUMMARY | 2024-02-27 09:31 | XMS_ITS | Encounter Summary ---
Author Organization [facility] Address [address] [place] [address]. [place] [address] [place] [address] Care Team Providers Care Seaming Machine Operator Name Role Phone Jacquie Fair NP Primary Care Provider [phone] [phone] Reason for Visit * Reason Comments Vomiting Started yest. Headache Onset- 1 wk. Weight loss also. 2 wks. Encounter Details Date Type Department Care Team (Late st Contact Info) Description 10/07/2023 10:20 AM CDT Office Visit [facility] Family Medicine - [place] [address] [place] [address] [phone] Terri Altman MD [address] [place] [phone] Vomiting (Started yest. ); Headache (Onset- 1 wk. Weight loss also. 2 wks. ) Social History Tobacco Use Types Packs/Day Years [...] on file Legal Sex Female 9:41 PM OPTICAL GOODS DRILL OPERATOR Gender Identity Female 04/24/2021 2:22 PM OPTICAL GOODS DRILL OPERATOR Sexual Orientation Choose not to disclose 2021 2:22 PM OPTICAL GOODS DRILL OPERATOR documented as of this encounter Last Filed Vital Signs Vital Sign Reading [...] Mass Index 16.68 10/07/2023 10:29 AM CDT documented in this encounter Progress Notes * Terri Altman MD - 10/07/2023 10:20 AM CDTSummary: acute SUBJECTIVE: Shagufta Lamar is a 38-year-old year old female who presents for acute concern, vomiting. One week of migraines. Started vomiting yesterday. Vomited twice. Some relief afterwards. Has voided this morning. Has taken 1/4 cup of tea. Stools are also loose. Has some abdominal cramping. No fevers, chills. Traveled to [place] 2-3 weeks ago. Went to [employer] over the weekend. She does not have migraines frequently but sumatriptan does seem to help with them when they do occur. Problem Vitamin D Deficiency Migraine Headache Mario's Disease Mitral Valve Regurgitation Mild Intermittent Asthma Without Complication (Hhs/Hcc) Alternating Constipation and Diarrhea (Resolved) Antral Gastritis (Resolved) Bilateral Hearing Loss, Unspecified Hearing Loss Type (Resolved) Review of Systems Per HPI Patient's past medical history, medications, allergies, family history, and social history reviewedand updated in Epic chart as necessary. Patient Active Problem List Diagnosis Seasonal depression (CMS/HCC) History of ovarian cyst Chronic neck and back pain BMI less than 19,adult Anemia, unspecified type Elevated lipase Hx of Mario thyroiditis POTS (postural orthostatic tachycardia syndrome) Arthralgia, unspecified joint Syncope, unspecified syncope type Diehl's palsy Facial droop Mario's disease Migraine headache Mild intermittent asthma without complication (HHS/HCC) Mitral valve regurgitation Vitamin D deficiency Current Outpatient Medications: albuterol sulfate HFA 108 (90 Base) MCG/ACT inhaler, Inhale 2 puffs into the lungs every 4 (four) hours as needed for Wheezing or Shortness of breath., Disp: 8.5 g, Rfl: 3 zolpidem (AMBIEN) 5 MG tablet, TAKE 1 TABLET(5 MG) BY MOUTH EVERY NIGHT NEEDED FOR SLEEP, Disp: 30 tablet, Rfl: 0 Allergies Allergen Reactions Cephalosporins Diarrhea and Vomiting CDIF Toxic Megacolon and Cdiff) Codeine Unknown and Shakiness Methylprednisolone Vomiting and Diarrhea Vomiting, diarrhea Vomiting, diarrhea Vomiting, diarrhea Wound Dressing Adhesive Rash Adhesive on heart monitors Latex Rash Penicillins Rash Past Surgical History: Procedure Laterality Date APPENDECTOMY 2022 BREAST SURGERY 2022 SECTION 2007 COLONOSCOPY STOMA DX INCLUDING COLLJ SPEC SPX 2008 D&C AFTER DELIVERY miscarriage ENLARGE BREAST Bilateral 06/14/2022 EXPLORATORY LAPAROSCOPY 2006 X2 2006 and 2008 HC TUBING LEEP REMOVAL OF FALLOPIAN TUBE 2009 REPAIR OF NASAL SEPTUM TONSILLECTOMY OBJECTIVE: There were no vitals filed for this visit. Physical Exam Constitutional: Appearance: Normal appearance. HENT: Nose: No congestion. Mouth/Throat: Mouth: Mucous membranes are moist. Cardiovascular: Rate and Rhythm: Normal rate and regular rhythm. Pulses: Normal pulses. Heart sounds: Normal heart sounds. Pulmonary: Breath sounds: Normal breath sounds. Abdominal: General: Bowel sounds are normal. There is no distension. Palpations: Abdomen is soft. Tenderness: There is no abdominal tenderness. Skin: General: Skin is warm and dry. Comments: No skin tenting Neurological: Mental Status: She is alert. ASSESSMENT & PLAN: Shagufta Lamar is a 38-year-old female presents to discuss with following. Viral gastroenteritis versus migraine causing nausea and vomiting. Prescribed Zofran to help with nausea. Acute migraine will be treated with sumatriptan as well. Provided note for work to remain offtoday while she works on hydration. Not currently dehydrated but could become so if nausea not managed. Discussed red flag symptoms that would warrant additional attention. Lab: None Specified No follow-ups on file. TERRI ALTMAN MD Family Practice documented in this encounter Plan of Treatment Not on file documented as of this encounter Visit Diagnoses Diagnosis Migraine without aura and without status migrainosus, not intractable- Primary Migraine without aura, without mention of intractable migraine without mention of status migrainosus Nausea and vomiting, unspecified vomiting type documented in this encounter Additional Health Concerns Assessment Noted Time PHQ-9 Depression Total Score: 14 04/13/ 023 8:28 AM OPTICAL GOODS DRILL OPERATOR documented as of this encounter Care Teams Seaming Machine Operator Relationship Specialty Start Date End Date Jacquie Fair NP [id number] [place] [id number] PCP - General NURSE PRACTITIONER 06/20/21 documented as of this encounter
--- OUTSIDE RECORDS SUMMARY | 2024-02-27 09:31 | XMS_ITS | Encounter Summary ---
Author Organization [facility] Address [address] [place] [address]. [place] [address] [place] [address] Care Team Providers Care Neon Installer Name Role Phone Jacquie Fair NP Primary Care Provider [phone] [phone] Encounter Details Date Type Department Care Team (Latest Contact Info) Description 10/21/2023 Scan [facility] HEALTH INFO SRVCS Scanned, Doc Med Group Social History Tobacco Use Types Packs/Day Years Used Date Smoking Tobacco: Every Day Cigarettes Passive Smoke Exposure: Yes Smokeless Tobacco: Never Comments:Smokes 3 cigs per d ay. Alcohol Use Standard Drinks/Week Comments Yes 0 (1 standard drink = 0.6 oz pure alcohol) social, less than 1 drink per week PHQ-2 Answer Date Recorded Patient Health Questionnaire-2 Score 0 06/06/2023 Comments No Sex and Gender Information Value Date Recorded Sex Assigned at Not on file Legal Sex Female 9:41 PM FINANCE DIRECTOR Gender Identity Female 04/24/2021 2:22 PM FINANCE DIRECTOR Sexual Orientation Choose not to disclose 2021 2:22 PM FINANCE DIRECTOR documented as of this encounter Plan of Treatment Not on file documented as of this encounter Visit Diagnoses Not on filedocumented in this encounter Additional Health Concerns Assessment Noted Time PHQ-9 Depression Total Score: 14 023 8:28 AM FINANCE DIRECTOR documented as of this encounter Care Teams Neon Installer Relationship Specialty Start Date End Date Jacquie Fair, TRICIA [address] [place] [address] PCP - General NURSE PRACTITIONER 06/20/21 documented as of this encounter
--- OUTSIDE RECORDS SUMMARY | 2024-02-27 09:31 | XMS_ITS | Encounter Summary ---
Author Organization [facility] Address [address] [place] [address]. [place] [address] [place] [address] Care Team Providers Care Registered Nurse Name Role Phone Jacquie Fair NP Primary Care Provider [phone] [phone] Encounter Details Date Type Department Care Team (Latest Contact Info) Description 11/20/2023 Scan [facility] HEALTH INFO SRVCS Scanned, Doc [...] on file Legal Sex Female 9:41 PM SALES PROJECT ADMINISTRATOR Gender Identity Female 04/24/2021 2:22 PM SALES PROJECT ADMINISTRATOR Sexual Orientation Choose not to disclose 2021 2:22 PM SALES PROJECT ADMINISTRATOR documented as of this encounter Plan of Treatment Not on file documented as of this encounter Visit Diagnoses Not on filedocumented in this encounter Additional Health Concerns Assessment Noted Time PHQ-9 Depression Total Score: 14 023 8:28 AM SALES PROJECT ADMINISTRATOR documented as of this encounter Care Teams Registered Nurse Relationship Specialty Start Date End Date Jacquie Fair, TRICIA [address] [place] [address] PCP - General NURSE PRACTITIONER 06/20/21 documented as of this encounter
--- OUTSIDE RECORDS SUMMARY | 2024-02-27 09:31 | XMS_ITS | Encounter Summary ---
Author Organization [facility] Address [address] [place] [address]. [place] [address] [place] [address] Care Team Providers Care Iron Assorter Name Role Phone Jacquie Fair NP Primary Care Provider [phone] [phone] Reason for Referral * Consultation (Routine) - Closed Specialty Diagnoses / Procedures Referred By Contact Referred To Contact CARDIOVASCULAR DISEASE Diagnoses Syncope and collapse Procedures OFFICE/OUTPATIENT NEW LOW MDM 30-44 MINUTES OFFICE/OUTPT VISIT,NEW,LEVL IV OFFICE/OUTPT VISIT,NEW,LEVL V OFFICE/OUTPT VISIT,EST,LEVL III OFFICE/OUTPT VISIT,EST,LEVL IV OFFICE/OUTPT VISIT,EST,LEVL V Jacquie Fair NP [address] [place] [address] Phone: tel: fax: Isac Allen MD [address] [facility] [address] [place] [address] Phone: tel: fax: Referral ID Status Reason Start Date Expiration Date V isits Requested Visits Authorized [id number] Closed Specialty Services 10/09/2023 10/08/2024 100 100 Scheduling Instructions Appt 10/21/23 Encounter Details Date Type Department Care Team (Late st Contact Info) Description 10/09/2023 Orders Only [facility] Family Medicine - [place] [address] [place] [address] [address] [place] [address] Jacquie Fair NP [address] [place] [address] Social History Tobacco Use Types Packs/Day Years [...] on file Legal Sex Female 9:41 PM MERCHANT TAILOR Gender Identity Female 04/24/2021 2:22 PM MERCHANT TAILOR Sexual Orientation Choose not to disclose 2021 2:22 PM MERCHANT TAILOR documented as of this encounter Plan of Treatment Scheduled Referrals Name Type Priority Associated Diagnoses Orde r Schedule Ambulatory referral to Cardiology, Adult (OTHER) Referral Routine Syncope and collapse Ordered: 10/09/2023 documented as of this encounter Visit Diagnoses Diagnosis Syncope and collapse- Primary documented in this encounter Additional Health Concerns Assessment Noted Time PHQ-9 Depression Total Score: 14 023 8:28 AM MERCHANT TAILOR documented as of this encounter Care Teams Iron Assorter Relationship Specialty Start Date End Date Jacquie Fair NP [address] [place] [address] PCP - General NURSE PRACTITIONER 06/20/21 documented as of this encounter
--- OUTSIDE RECORDS SUMMARY | 2024-02-27 09:31 | XMS_ITS | Encounter Summary ---
Author Organization [facility] Address [address] [place] [address]. [place] [address] [place] [address] Care Team Providers Care Check Scaler Name Role Phone Jacquie Fair NP Primary Care Provider [phone] [phone] Encounter Details Date Type Department Care Team (Latest Contact Info) Description 01/14/2024 Scan MG HEALTH INFO SRVCS [...] on file Legal Sex Female 9:41 PM GARBAGE STOKER Gender Identity Female 04/24/2021 2:22 PM GARBAGE STOKER Sexual Orientation Choose not to disclose 2021 2:22 PM GARBAGE STOKER documented as of this encounter Plan of Treatment Not on file documented as of this encounter Visit Diagnoses Not on filedocumented in this encounter Additional Health Concerns Assessment Noted Time PHQ-9 Depression Total Score: 14 023 8:28 AM GARBAGE STOKER documented as of this encounter Care Teams Check Scaler Relationship Specialty Start Date End Date Jacquie Fair, TRICIA [address] [place] [address] PCP - General NURSE PRACTITIONER 06/20/21 documented as of this encounter
--- OUTSIDE RECORDS SUMMARY | 2024-02-27 09:31 | XMS_ITS | Encounter Summary ---
Author Organization [facility] Address [address] [place] [address]. [place] [address] [place] [address] Care Team Providers Care Bearing Maker Name Role Phone Jacquie Fair NP Primary Care Provider [phone] [phone] Encounter Details Date Type Department Care Team (Latest Contact Info) Description 10/07/2023 Travel Social History Tobacco Use Types Packs/Day Years [...] on file Legal Sex Female 9:41 PM PREFORM MACHINE OPERATOR Gender Identity Female 04/24/2021 2:22 PM PREFORM MACHINE OPERATOR Sexual Orientation Choose not to disclose 2021 2:22 PM PREFORM MACHINE OPERATOR documented as of this encounter Plan of Treatment Not on file documented as of this encounter Visit Diagnoses Not on filedocumented in this encounter Additional Health Concerns Assessment Noted Time PHQ-9 Depression Total Score: 14 023 8:28 AM PREFORM MACHINE OPERATOR documented as of this encounter Care Teams Bearing Maker Relationship Specialty Start Date End Date Jacquie Fair NP [address] [place] [address] PCP - General NURSE PRACTITIONER 06/20/21 documented as of this encounter
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
--- OUTSIDE RECORDS SUMMARY | 2024-02-27 09:32 | XMS_ITS | Encounter Summary ---
Author Organization [facility] [place] Address [address] [place] [address]. [place] [address] [place] [address] Care Team Providers Care Heavy Mobile Equipment Repairer Name Role Phone Jacquie Fair NP Primary Care Provider [phone] [phone] Encounter Details Date Type Department Care Team (Late st Contact Info) Description 06/25/2023 [employer] Message [facility] Medical Group Multispecialty Care - [facility] [address] [facility], [address] [place] [address] [employer], [facility] Provider Appointment Social History Tobacco Use Types Packs/Day Years Used Date Smoking Tobacco: Some Days Cigarettes Passive Smoke Exposure: Yes Smokeless Tobacco: Never Alcohol Use Standard Drinks/Week Comments Yes 0 (1 standard drink = 0.6 oz pure alcohol) social, less than 1 drink per week PHQ-2 Answer Date Recorded Patient Health Questionnaire-2 Score 0 06/06/2023 Comments No Sex and Gender Information Value Date Recorded Sex Assigned at Not on file Legal Sex Female 9:41 PM RESIDENTIAL CARE FACILITY MANAGER Gender Identity Female 04/24/2021 2:22 PM RESIDENTIAL CARE FACILITY MANAGER Sexual Orientation Choose not to disclose 2021 2:22 PM RESIDENTIAL CARE FACILITY MANAGER documented as of this encounter Plan of Treatment Not on file documented as of this encounter Visit Diagnoses Not on filedocumented in this encounter Additional Health Concerns Assessment Noted Time PHQ-9 Depression Total Score: 14 023 8:28 AM RESIDENTIAL CARE FACILITY MANAGER documented as of this encounter Care Teams Heavy Mobile Equipment Repairer Relationship Specialty Start Date End Date Jacquie Fair NP [address] [place] [address] PCP - General NURSE PRACTITIONER 06/20/21 documented as of this encounter
--- OUTSIDE RECORDS SUMMARY | 2024-02-27 09:32 | XMS_ITS | Encounter Summary ---
Author Organization [facility] Address [address] [place] [address]. [place] [address] [place] [address] Care Team Providers Care Vp Rheumatology Name Role Phone Jacquie Fair NP Primary Care Provider [phone] Reason for Visit * Reason Onset Date Comments Appointment Request 06/21/2023 Encounter Details Date Type Department Care Team (Late st Contact Info) Description 06/21/2023 Telephone [facility] Multispecialty Care - [facility] [address] [facility], [address] [place] [phone] Linda Gr MD [address] [place] [address] Appointment Request Social History Tobacco Use Types Packs/Day Years [...] on file Legal Sex Female 9:41 PM SAW CLEANER Gender Identity Female 04/24/2021 2:22 PM SAW CLEANER Sexual Orientation Choose not to disclose 2021 2:22 PM SAW CLEANER documented as of this encounter Progress Notes * Linda Singh MA - 06/25/2023 2:00 PM CDT [employer] message sent. for return call left on patient phone. * Salome Berger - 06/21/2023 8:19 AM CDT Patient returned call and she is an urgent referral $/25 at 11:40 is not open at this time. Please call her to schedule. documented in this encounter Plan of Treatment Not on file documented as of this encounter Visit Diagnoses Not on filedocumented in this encounter Additional Health Concerns Assessment Noted Time PHQ-9 Depression Total Score: 14 023 8:28 AM SAW CLEANER documented as of this encounter Care Teams Vp Rheumatology Relationship Specialty Start Date End Date Jacquie Fair NP [address] [place] [address] PCP - General NURSE PRACTITIONER 06/20/21 documented as of this encounter
--- OUTSIDE RECORDS SUMMARY | 2024-02-27 09:32 | XMS_ITS | Encounter Summary ---
Author Organization [facility] Address [address] [place] [address]. [place] [address] [place] [address] Care Team Providers Care Agent Based Modeler Name Role Phone Jacquie Fair NP Primary Care Provider [phone] [phone] Encounter Details Date Type Department Care Team (Latest Contact Info) Description 06/06/2023 Travel Social History Tobacco Use Types Packs/Day [...] on file Legal Sex Female 9:41 PM DIORAMA MODEL MAKER Gender Identity Female 04/24/2021 2:22 PM DIORAMA MODEL MAKER Sexual Orientation Choose not to disclose 2021 2:22 PM DIORAMA MODEL MAKER documented as of this encounter Plan of Treatment Not on file documented as of this encounter Visit Diagnoses Not on filedocumented in this encounter Additional Health Concerns Assessment Noted Time PHQ-9 Depression Total Score: 14 023 8:28 AM DIORAMA MODEL MAKER documented as of this encounter Care Teams Agent Based Modeler Relationship Specialty Start Date End Date Jacquie Fair NP [address] [place] [address] PCP - General NURSE PRACTITIONER 06/20/21 documented as of this encounter
--- OUTSIDE RECORDS SUMMARY | 2024-02-27 09:32 | XMS_ITS | Encounter Summary ---
Author Organization [facility] Address [address] [place] [address]. [place] [address] [place] [address] Care Team Providers Care Fiber Machine Tender Name Role Phone Jacquie Fair PERSONAL INVESTMENT ADVISER Primary Care Provider [phone] [phone] Encounter Details Date Type Department Care Team (Late st Contact Info) Description 06/18/2023 [employer] Message Enc [facility] Medical Group Family Medicine [place] [address] [facility] [address] [place], [place] [id number] [facility] Provider Neurology referral Social History Tobacco Use Types Packs/Day Years [...] on file Legal Sex Female 9:41 PM SENIOR COURTROOM CLERK Gender Identity Female 04/24/2021 2:22 PM SENIOR COURTROOM CLERK Sexual Orientation Choose not to disclose 2021 2:22 PM SENIOR COURTROOM CLERK documented as of this encounter Plan of Treatment Not on file documented as of this encounter Visit Diagnoses Not on filedocumented in this encounter Additional Health Concerns Assessment Noted Time PHQ-9 Depression Total Score: 14 023 8:28 AM SENIOR COURTROOM CLERK documented as of this encounter Care Teams Fiber Machine Tender Relationship Specialty Start Date End Date Jacquie Fair, PERSONAL INVESTMENT ADVISER [address] [place] [address] PCP - General NURSE PRACTITIONER 06/20/21 documented as of this encounter
--- OUTSIDE RECORDS SUMMARY | 2024-02-27 09:32 | XMS_ITS | Encounter Summary ---
Author Organization [facility] Address [address] [place] [address]. [place] [address] [place] [address] Care Team Providers Care Natural Science Curator Name Role Phone Jacquie Fair NP Primary Care Provider [phone] [phone] Encounter Details Date Type Department Care Team (Latest Contact Info) Description 07/01/2023 Travel Social History Tobacco Use Types Packs/Day [...] on file Legal Sex Female 9:41 PM HYDRANT SETTER Gender Identity Female 04/24/2021 2:22 PM HYDRANT SETTER Sexual Orientation Choose not to disclose 2021 2:22 PM HYDRANT SETTER documented as of this encounter Plan of Treatment Not on file documented as of this encounter Visit Diagnoses Not on filedocumented in this encounter Additional Health Concerns Assessment Noted Time PHQ-9 Depression Total Score: 14 023 8:28 AM HYDRANT SETTER documented as of this encounter Care Teams Natural Science Curator Relationship Specialty Start Date End Date Jacquie Fair NP [address] [place] [address] PCP - General NURSE PRACTITIONER 06/20/21 documented as of this encounter
--- OUTSIDE RECORDS SUMMARY | 2024-02-27 09:32 | XMS_ITS | Encounter Summary ---
Author Organization [facility] Address [address] [place] [address]. [place] [address] [place] [address] Care Team Providers Care Chute Greaser Name Role Phone Jacquie Fair NP Primary Care Provider [phone] Encounter Details Date Type Department Care Team (Latest Contact Info) Description 06/03/2023 Scan [facility] Scanned, Doc [...] on file Legal Sex Female 9:41 PM CASINO INVESTIGATOR Gender Identity Female 04/24/2021 2:22 PM CASINO INVESTIGATOR Sexual Orientation Choose not to disclose 2021 2:22 PM CASINO INVESTIGATOR documented as of this encounter Plan of Treatment Not on file documented as of this encounter Visit Diagnoses Not on filedocumented in this encounter Additional Health Concerns Assessment Noted Time PHQ-9 Depression Total Score: 14 023 8:28 AM CASINO INVESTIGATOR documented as of this encounter Care Teams Chute Greaser Relationship Specialty Start Date End Date Jacquie Fair NP [address] [place] [address] PCP - General NURSE PRACTITIONER 06/20/21 documented as of this encounter
--- OUTSIDE RECORDS SUMMARY | 2024-02-27 09:32 | XMS_ITS | Encounter Summary ---
Author Organization [facility] Address [address] [place] [address]. [place] [address] [place] [address] Care Team Providers Care Urologic Nurse Name Role Phone Jacquie Fair NP Primary Care Provider +1 [phone] Encounter Details Date Type Department Care Team (Latest Contact Info) Description 01/21/2023 Scan [facility] INFO SRVCS Scanned, Doc Med Group Social History Tobacco Use Types Packs/Day Years Used Date Smoking Tobacco: Some Days Cigarettes Passive Smoke Exposure: Yes Smokeless Tobacco: Never Alcohol Use Standard Drinks/Week Comments Yes 0 (1 standard drink = 0.6 oz pure alcohol) social, less than 1 drink per week PHQ-2 Answer Date Recorded Patient Health Questionnaire-2 Score 2 04/13/2022 Comments No Sex and Gender Information Value Date Recorded Sex Assigned at Not on file Legal Sex Female 9:41 PM PPA TEACHER Gender Identity Female 04/24/2021 2:22 PM PPA TEACHER Sexual Orientation Choose not to disclose 2021 2:22 PM PPA TEACHER documented as of this encounter Plan of Treatment Not on file documented as of this encounter Visit Diagnoses Not on filedocumented in this encounter Additional Health Concerns Assessment Noted Time PHQ-9 Depression Total Score: 14 023 8:28 AM PPA TEACHER documented as of this encounter Care Teams Urologic Nurse Relationship Specialty Start Date End Date Jacquie Fair NP [address] [place] [address] PCP - General NURSE PRACTITIONER 06/20/21 documented as of this encounter
--- OUTSIDE RECORDS SUMMARY | 2024-02-27 09:32 | XMS_ITS | Encounter Summary ---
Author Organization [facility] Address [address] [place] [address]. [place] [address] [place] [address] Care Team Providers Care Automotive Collision Repair Instructor Name Role Phone Jacquie Fair NP Primary Care Provider +1 [phone] Encounter Details Date Type Department Care Team (Late st Contact Info) Description 04/29/2023 [place] Message Enc [facility] Family Medicine [facility] [address] [facility] [address] [place], [place] [id number] [facility] Provider medication Social History Tobacco Use Types Packs/Day Years [...] on file Legal Sex Female 9:41 PM PLANTING SUPERVISOR Gender Identity Female 04/24/2021 2:22 PM PLANTING SUPERVISOR Sexual Orientation Choose not to disclose 2021 2:22 PM PLANTING SUPERVISOR documented as of this encounter Plan of Treatment Not on file documented as of this encounter Visit Diagnoses Not on filedocumented in this encounter Additional Health Concerns Assessment Noted Time PHQ-9 Depression Total Score: 14 023 8:28 AM PLANTING SUPERVISOR documented as of this encounter Care Teams Automotive Collision Repair Instructor Relationship Specialty Start Date End Date Jacquie Fair, FORKLIFT DRIVER [address] [place], [place] [id number] PCP - General NURSE PRACTITIONER 06/20/21 documented as of this encounter
--- OUTSIDE RECORDS SUMMARY | 2024-02-27 09:32 | XMS_ITS | Encounter Summary ---
Author Organization [facility] Address [address] [place] [address]. [place] [address] [place] [address] Care Team Providers Care Paymaster Of Purses Name Role Phone Jacquie Fair NP Primary Care Provider [phone] [phone] Reason for Visit * Reason Onset Date Comments Results 06/21/2023 MRI brain Encounter Details Date Type Department Care Team (Late st Contact Info) Description 06/21/2023 Telephone [facility] Family Medicine - [place] [address] [facility] [address] [place], [place] [address] Jacquie Fair, TRICIA [address] [place], [place] [address] Results (MRI brain) Social History Tobacco Use Types Packs/Day Years [...] on file Legal Sex Female 9:41 PM RAILROAD BRAKE REPAIRER Gender Identity Female 04/24/2021 2:22 PM RAILROAD BRAKE REPAIRER Sexual Orientation Choose not to disclose 2021 2:22 PM RAILROAD BRAKE REPAIRER documented as of this encounter Progress Notes * Marley Bills MA - 06/24/2023 3:31 PM CDT She stated it has improved slightly. She will keep her appointment with neurology * Jacquie Fair NP - 06/24/2023 12:08 PM CDT Please inform pt normal findings. Can you ask her if her facial droop has improved? * Marley Bills MA - 06/21/2023 1:20 PM CDT We received MRI brain/brain stem from [facility] [employer]. Impression: Normal Brain I will place on Jacquie's desk for review documented in this encounter Plan of Treatment Not on file documented as of this encounter Visit Diagnoses Not on filedocumented in this encounter Additional Health Concerns Assessment Noted Time PHQ-9 Depression Total Score: 14 023 8:28 AM RAILROAD BRAKE REPAIRER documented as of this encounter Care Teams Paymaster Of Purses Relationship Specialty Start Date End Date Jacquie Fair NP [address] [place] [address] PCP - General NURSE PRACTITIONER 06/20/21 documented as of this encounter
--- OUTSIDE RECORDS SUMMARY | 2024-02-27 09:32 | XMS_ITS | Encounter Summary ---
Author Organization [facility] Address [address] [place] [address]. [place] [address] [place] [address] Care Team Providers Care Insole Lip Turner Name Role Phone Jacquie Fair NP Primary Care Provider [phone] [phone] Reason for Referral * Consultation (Routine) - Authorized Specialty Diagnoses / Procedures Referred By Contac t Referred To Contact CARDIOVASCULAR DISEASE Diagnoses Syncope, unspecified syncope type Procedures OFFICE/OUTPATIENT NEW LOW MDM 30-44 MINUTES OFFICE/OUTPT VISIT,NEW,LEVL IV OFFICE/OUTPT VISIT,NEW,LEVL V OFFICE/OUTPT VISIT,EST,LEVL III OFFICE/OUTPT VISIT,EST,LEVL IV OFFICE/OUTPT VISIT,EST,LEVL V Jacquie Fair NP [address] [place] [address] Phone: tel: fax: Isac Allen MD [address] [place] [address] Phone: tel: fax: Referral ID Status Reason Start Date Expiration Date Visits Requested Visits Authorized [id number] Authorized Specialty Services 06/18/2023 06/02/2024 99 99 Reason for Visit * Reason Onset Date Comments Referral 06/03/2023 Encounter Details Date Type Department Care Team (Late st Contact Info) Description 06/03/2023 Telephone [facility] Family Medicine - [place] [address] [place] [address] [address] [place] [address] Jacquie Fair NP [address] [place] [address] Referral Social History Tobacco Use Types Packs/Day Years [...] on file Legal Sex Female 9:41 PM JUNIOR LINUX ADMINISTRATOR Gender Identity Female 04/24/2021 2:22 PM JUNIOR LINUX ADMINISTRATOR Sexual Orientation Choose not to disclose 2021 2:22 PM JUNIOR LINUX ADMINISTRATOR documented as of this encounter Progress Notes * Marley Bills MA - 06/03/2023 4:51 PM CDT Referral to for Syncope documented in this encounter Plan of Treatment Scheduled Referrals Name Type Priority Associated Diagnoses Orde r Schedule Ambulatory referral to Cardiology, Adult (OTHER) Referral Routine Syncope, unspecified syncope type Ordered: 06/03/2023 documented as of this encounter Visit Diagnoses Diagnosis Syncope, unspecified syncope type- Primary documented in this encounter Additional Health Concerns Assessment Noted Time PHQ-9 Depression Total Score: 14 023 8:28 AM JUNIOR LINUX ADMINISTRATOR documented as of this encounter Care Teams Insole Lip Turner Relationship Specialty Start Date End Date Jacquie Fair NP [address] [place] [address] PCP - General NURSE PRACTITIONER 06/20/21 documented as of this encounter
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
--- OUTSIDE RECORDS SUMMARY | 2024-02-27 09:32 | XMS_ITS | Encounter Summary ---
Author Organization [facility] Address [address] [place] [address]. [place] [address] [place] [address] Care Team Providers Care Sheet Metal Assembler And Riveter Name Role Phone Jacquie Fair NP Primary Care Provider [phone] [phone] Reason for Visit * Reason Comments MRI (SCAN) Encounter Details Date Type Department Care Team (Latest Contact Info) Description 06/21/2023 Scan [facility] HEALTH INFO SRVCS Scanned, Doc Med Group MRI (SCAN) Social History Tobacco Use Types Packs/Day Years [...] on file Legal Sex Female 9:41 PM RUBBER GOODS INSPECTOR TESTER Gender Identity Female 04/24/2021 2:22 PM RUBBER GOODS INSPECTOR TESTER Sexual Orientation Choose not to disclose 2021 2:22 PM RUBBER GOODS INSPECTOR TESTER documented as of this encounter Plan of Treatment Not on file documented as of this encounter Procedures Procedure Name Priority Date/Time Associated Diagnosis Comments MRI GENERIC 06/21/2023 documented in this encounter Results * MRI GENERIC (06/21/2023) Anatomical Region Laterality Modality Other 06/21/2023 us Doc Med Group Scanned SCANNING Final Resu lt documented in this encounter Visit Diagnoses Not on filedocumented in this encounter Additional Health Concerns Assessment Noted Time PHQ-9 Depression Total Score: 14 023 8:28 AM RUBBER GOODS INSPECTOR TESTER documented as of this encounter Care Teams Sheet Metal Assembler And Riveter Relationship Specialty Start Date End Date Jacquie Fair NP [address] [place] [address] PCP - General NURSE PRACTITIONER 06/20/21 documented as of this encounter
--- OUTSIDE RECORDS SUMMARY | 2024-02-27 09:32 | XMS_ITS | Encounter Summary ---
Author Organization [facility] Address [address] [place] [address]. [place] [address] [place] [address] Care Team Providers Care Pit Laborer Name Role Phone Jacquie Fair NP Primary Care Provider +1 [phone] Reason for Visit * Reason Onset Date Comments Consult 06/07/2023 Encounter Details Date Type Department Care Team (Late st Contact Info) Description 06/07/2023 Telephone [facility], [address] [address] Ana Petit RMA Consult Social History Tobacco Use Types Packs/Day Years [...] on file Legal Sex Female 9:[address] SCAN TECHNICIAN Gender Identity Female 04/24/2021 2:[address] SCAN TECHNICIAN Sexual Orientation Choose not to disclose 2021 2:[address] SCAN TECHNICIAN documented as of this encounter Progress Notes * FANY Nash - 06/07/2023 1:24 PM CDT Spoke with patient to schedule cardiology consult per Antoine Fair NP. Patient informed me that she already has an appt at a different location but wanted to be seen sooner. We are booking about the same time frame as her other appt, therefore, she will keep that one. documented in this encounter Plan of Treatment Not on file documented as of this encounter Visit Diagnoses Not on filedocumented in this encounter Additional Health Concerns Assessment Noted Time PHQ-9 Depression Total Score: 14 023 8:[address] SCAN TECHNICIAN documented as of this encounter Care Teams Pit Laborer Relationship Specialty Start Date End Date Jacquie Fair NP [address] [place] [address] PCP - General NURSE PRACTITIONER 06/20/21 documented as of this encounter
--- OUTSIDE RECORDS SUMMARY | 2024-02-27 09:32 | XMS_ITS | Encounter Summary ---
Author Organization [facility] Address [address] [place] [address]. [place] [address] [place] [address] Care Team Providers Care Creping Machine Operator Helper Name Role Phone Jacquie Fair NP Primary Care Provider +1 [phone] Reason for Visit * Reason Comments Lab (SCAN) Encounter Details Date Type Department Care Team (Latest Contact Info) Description 07/05/2023 Scan HEALTH INFO SRVCS Scanned, Doc Med Group Lab (SCAN) Social History Tobacco Use Types Packs/Day [...] on file Legal Sex Female 9:41 PM LPN MEDICAL ASSISTANT Gender Identity Female 04/24/2021 2:22 PM LPN MEDICAL ASSISTANT Sexual Orientation Choose not to disclose 2021 2:22 PM LPN MEDICAL ASSISTANT documented as of this encounter Plan of Treatment Not on file documented as of this encounter Procedures Procedure Name Priority Date/Time Associated Diagnosis Comments OUTSIDE LAB (SCAN ORDER) 07/05/2023 OUTSIDE LAB (SCAN ORDER) 07/05/2023 documented in this encounter Results * OUTSIDE LAB (SCAN ORDER) (07/05/2023) 07/05/2023 us Doc Med Group Scanned SCANNING Final Resu lt * OUTSIDE LAB (SCAN ORDER) (07/05/2023) 07/05/2023 us Doc Med Group Scanned SCANNING Final Resu lt documented in this encounter Visit Diagnoses Not on filedocumented in this encounter Additional Health Concerns Assessment Noted Time PHQ-9 Depression Total Score: 14 023 8:28 AM LPN MEDICAL ASSISTANT documented as of this encounter Care Teams Creping Machine Operator Helper Relationship Specialty Start Date End Date Jacquie Fair NP [address] [place] [address] PCP - General NURSE PRACTITIONER 06/20/21 documented as of this encounter
--- OUTSIDE RECORDS SUMMARY | 2024-02-27 09:32 | XMS_ITS | Encounter Summary ---
Author Organization [facility] Address [address] [place] [address]. [place] [address] [place] [address] Care Team Providers Care Machine Setter Name Role Phone Jacquie Fair NP Primary Care Provider [phone] [phone] Reason for Visit * Reason Comments Lab (SCAN) Encounter Details Date Type Department Care Team (Latest Contact Info) Description 06/02/2023 Scan HEALTH INFO SRVCS Scanned, Doc Med [...] on file Legal Sex Female 9:41 PM ASSEMBLY MACHINE SET UP MECHANIC Gender Identity Female 04/24/2021 2:22 PM ASSEMBLY MACHINE SET UP MECHANIC Sexual Orientation Choose not to disclose 2021 2:22 PM ASSEMBLY MACHINE SET UP MECHANIC documented as of this encounter Plan of Treatment Not on file documented as of this encounter Procedures Procedure Name Priority Date/Time Associated Diagnosis Comments OUTSIDE LAB (SCAN ORDER) 06/02/2023 documented in this encounter Results * OUTSIDE LAB (SCAN ORDER) (06/02/2023) 06/02/2023 [facility] Scanned SCANNING Final Resu lt documented in this encounter Visit Diagnoses Not on filedocumented in this encounter Additional Health Concerns Assessment Noted Time PHQ-9 Depression Total Score: 14 023 8:28 AM ASSEMBLY MACHINE SET UP MECHANIC documented as of this encounter Care Teams Machine Setter Relationship Specialty Start Date End Date Jacquie Fair NP [address] [place] [address] PCP - General NURSE PRACTITIONER 06/20/21 documented as of this encounter
--- OUTSIDE RECORDS SUMMARY | 2024-02-27 09:33 | XMS_ITS | Encounter Summary ---
Author Organization [facility] Address [address] [place] [address]. [place] [address] [place] [address] Care Team Providers Care Cargo Surveyor Name Role Phone Jacquie Fair NP Primary Care Provider [phone] [phone] Encounter Details Date Type Department Care Team (Late st Contact Info) Description 08/15/2022 BioNovat Message Enc [facility] Medical Group Family Medicine - [place] [address] [facility] [address] [place], [place] [address] Jacquie Fair, TRICIA [address] [place] [address] follow up on echo Social History Tobacco Use Types Packs/Day Years [...] on file Legal Sex Female 9:41 PM SERVICE MEMBER Gender Identity Female 04/24/2021 2:22 PM SERVICE MEMBER Sexual Orientation Choose not to disclose 2021 2:22 PM SERVICE MEMBER COVID-19 Exposure Response Date Recorded In the last 10 days, have yo u been in contact with someone who was confirmed or suspected to have Coronavirus/COVID-19? No / Unsure 07/17/2022 2:23 PM CDT documented as of this encounter Plan of Treatment Not on file documented as of this encounter Visit Diagnoses Not on filedocumented in this encounter Additional Health Concerns Assessment Noted Time PHQ-9 Depression Total Score: 14 023 8:28 AM SERVICE MEMBER documented as of this encounter Care Teams Cargo Surveyor Relationship Specialty Start Date End Date Jacquie Fair NP [address] [place] [address] PCP - General NURSE PRACTITIONER 06/20/21 documented as of this encounter
--- OUTSIDE RECORDS SUMMARY | 2024-02-27 09:33 | XMS_ITS | Encounter Summary ---
Author Organization [facility] Address [address] [place] [address]. [place] [address] [place] [address] Care Team Providers Care Diabetic Educator Name Role Phone Jacquie Fair NP Primary Care Provider [phone] [phone] Encounter Details Date Type Department Care Team (Late st Contact Info) Description 09/10/2022 ADARTIS Message Enc [facility] Medical Group Family Medicine - [place] [address] [facility] [address] [place], [place] [phone] Jacquie Fair NP [address] [place] [address] Shot records Social History Tobacco Use Types Packs/Day Years [...] on file Legal Sex Female 9:41 PM PHOTOENGRAVING PRINTER Gender Identity Female 04/24/2021 2:22 PM PHOTOENGRAVING PRINTER Sexual Orientation Choose not to disclose 2021 2:22 PM PHOTOENGRAVING PRINTER documented as of this encounter Plan of Treatment Not on file documented as of this encounter Visit Diagnoses Not on filedocumented in this encounter Additional Health Concerns Assessment Noted Time PHQ-9 Depression Total Score: 14 023 8:28 AM PHOTOENGRAVING PRINTER documented as of this encounter Care Teams Diabetic Educator Relationship Specialty Start Date End Date Jacquie Fair NP [address] [place] [address] PCP - General NURSE PRACTITIONER 06/20/21 documented as of this encounter
--- OUTSIDE RECORDS SUMMARY | 2024-02-27 09:33 | XMS_ITS | Encounter Summary ---
Author Organization [facility] Address [address] [place] [address]. [place] [address] [place] [address] Care Team Providers Care Middle School Librarian Name Role Phone Jacquie Fair NP Primary Care Provider [phone] [phone] Encounter Details Date Type Department Care Team (Latest Contact Info) Description 06/06/2022 Scan MG HEALTH INFO SRVCS Scanned, Doc [...] on file Legal Sex Female 9:41 PM STRATEGIC SOLUTIONS CONSULTANT Gender Identity Female 04/24/2021 2:22 PM STRATEGIC SOLUTIONS CONSULTANT Sexual Orientation Choose not to disclose 2021 2:22 PM STRATEGIC SOLUTIONS CONSULTANT documented as of this encounter Plan of Treatment Not on file documented as of this encounter Visit Diagnoses Not on filedocumented in this encounter Additional Health Concerns Assessment Noted Time PHQ-9 Depression Total Score: 14 023 8:28 AM STRATEGIC SOLUTIONS CONSULTANT documented as of this encounter Care Teams Middle School Librarian Relationship Specialty Start Date End Date Jacquie Fair NP [address] [place] [address] PCP - General NURSE PRACTITIONER 06/20/21 documented as of this encounter
--- OUTSIDE RECORDS SUMMARY | 2024-02-27 09:33 | XMS_ITS | Encounter Summary ---
Author Organization [facility] Address [address] [place] [address]. [place] [address] [place] [address] Care Team Providers Care Automatic Toe Laster Name Role Phone Jacquie Fair NP Primary Care Provider [phone] [phone] Reason for Visit * Reason Onset Date Comments Medication Request 10/02/2022 Encounter Details Date Type Department Care Team (Late st Contact Info) Description 10/02/2022 Telephone [facility] Medical Group Family Medicine - [place] [address] [phone] Jacquie Fair NP [address] [place] [id number] Medication Request Social History Tobacco Use Types Packs/Day [...] on file Legal Sex Female 9:41 PM PRIMARY CARE MD Gender Identity Female 04/24/2021 2:22 PM PRIMARY CARE MD Sexual Orientation Choose not to disclose 2021 2:22 PM PRIMARY CARE MD documented as of this encounter Progress Notes * Jacquie Fair NP - 10/02/2022 2:33 PM CDTAddended by: JACQUIE FAIR on: 10/02/2022 02:33 PM Modules accepted: Orders * Marley Bills MA - 10/02/2022 1:31 PM CDT [facility] [place] Refill Zolpidem 5 mg Take 1 tablet by mouth every night as needed for sleep CSA and UDS: up to date documented in this encounter Plan of Treatment Not on file documented as of this encounter Visit Diagnoses Diagnosis Primary insomnia Persistent disorder of initiating or maintaining sleep documented in this encounter Additional Health Concerns Assessment Noted Time PHQ-9 Depression Total Score: 14 023 8:28 AM PRIMARY CARE MD documented as of this encounter Care Teams Automatic Toe Laster Relationship Specialty Start Date End Date Jacquie Fair NP [address] [place] [address] PCP - General NURSE PRACTITIONER 06/20/21 documented as of this encounter
--- OUTSIDE RECORDS SUMMARY | 2024-02-27 09:33 | XMS_ITS | Encounter Summary ---
Author Organization [facility] Address [address] [place] [address]. [place] [address] [place] [address] Care Team Providers Care Construction Site Manager Name Role Phone Jacquie Fair NP Primary Care Provider [phone] [phone] Encounter Details Date Type Department Care Team (Latest Contact Info) Description 07/17/2022 Scan MG HEALTH INFO SRVCS Scanned, Doc [...] on file Legal Sex Female 9:41 PM GEOGRAPHY DEPARTMENT CHAIR Gender Identity Female 04/24/2021 2:22 PM GEOGRAPHY DEPARTMENT CHAIR Sexual Orientation Choose not to disclose 2021 2:22 PM GEOGRAPHY DEPARTMENT CHAIR COVID-19 Exposure Response Date Recorded In the [...] Depression Total Score: 14 023 8:28 AM GEOGRAPHY DEPARTMENT CHAIR documented as of this encounter Care Teams Construction Site Manager Relationship Specialty Start Date End Date Jacquie Fair NP [address] [place] [address] PCP - General NURSE PRACTITIONER 06/20/21 documented as of this encounter
--- OUTSIDE RECORDS SUMMARY | 2024-02-27 09:33 | XMS_ITS | Encounter Summary ---
Author Organization [facility] Address [address] [place] [address]. [place] [address] [place] [address] Care Team Providers Care Oral And Maxillofacial Pathologist Name Role Phone Jacquie Fair NP Primary Care Provider [phone] [phone] Encounter Details Date Type Department Care Team (Latest Contact Info) Description 07/17/2022 Travel Social History Tobacco Use Types Packs/Day [...] on file Legal Sex Female 9:41 PM TYPESETTER APPRENTICE Gender Identity Female 04/24/2021 2:22 PM TYPESETTER APPRENTICE Sexual Orientation Choose not to disclose 2021 2:22 PM TYPESETTER APPRENTICE COVID-19 Exposure Response Date Recorded In the [...] Depression Total Score: 14 023 8:28 AM TYPESETTER APPRENTICE documented as of this encounter Care Teams Oral And Maxillofacial Pathologist Relationship Specialty Start Date End Date Jacquie Fair NP [address] [place] [address] PCP - General NURSE PRACTITIONER 06/20/21 documented as of this encounter
--- OUTSIDE RECORDS SUMMARY | 2024-02-27 09:33 | XMS_ITS | Encounter Summary ---
Author Organization [facility] Address [address] [place] [address]. [place] [address] [place] [address] Care Team Providers Care Wire Dropper Name Role Phone Jacquie Fair NP Primary Care Provider [phone] [phone] Encounter Details Date Type Department Care Team (Latest Contact Info) Description 08/28/2022 Travel Social History Tobacco Use Types Packs/Day [...] on file Legal Sex Female 9:41 PM GREENS KEEPER Gender Identity Female 04/24/2021 2:22 PM GREENS KEEPER Sexual Orientation Choose not to disclose 2021 2:22 PM GREENS KEEPER documented as of this encounter Plan of Treatment Not on file documented as of this encounter Visit Diagnoses Not on filedocumented in this encounter Additional Health Concerns Assessment Noted Time PHQ-9 Depression Total Score: 14 023 8:28 AM GREENS KEEPER documented as of this encounter Care Teams Wire Dropper Relationship Specialty Start Date End Date Jacquie Fair NP [address] [place] [address] PCP - General NURSE PRACTITIONER 06/20/21 documented as of this encounter
--- OUTSIDE RECORDS SUMMARY | 2024-02-27 09:33 | XMS_ITS | Encounter Summary ---
Author Organization [facility] Address [address] [place] [address]. [place] [address] [place] [address] Care Team Providers Care Lpn Rn Hospice Name Role Phone Jacquie Fair NP Primary Care Provider [phone] Reason for Referral * Consultation (Urgent) - Closed Specialty Diagnoses / Procedures Referred By Contmarcella t Referred To Contact Genetics Diagnoses Hypermobile Ihsan-Danlos syndrome (HHS/HCC) POTS (postural orthostatic tachycardia syndrome) Other chronic pain Procedures OFFICE/OUTPT VISIT,NEW,LEVL III OFFICE/OUTPT VISIT,NEW,LEVL IV OFFICE/OUTPT VISIT,NEW,LEVL V OFFICE/OUTPT VISIT,EST,LEVL III OFFICE/OUTPT VISIT,EST,LEVL IV OFFICE/OUTPT VISIT,EST,LEVL V Jacquie Fair NP [address] [place] [address] Phone: tel: fax: [facility] [address] [place] [address] Phone: tel: fax: Referral ID Status Reason Start Date Expiration Date Visits Re quested Visits Authorized [id number] Closed 07/17/2022 07/18/2023 99 99 Scheduling Instructions Please refer pt to Linda Gonzales, genetics specialist for EDS in [place]. Reason for Visit * Reason Comments Annual Patient presents for an adult routine exam Encounter Details Date Type Department Care Team (Late st Contact Info) Description 07/17/2022 2:40 PM CDT Office Visit [facility] [place] [address] [facility] 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 No / Unsure 07/17/2022 2:23 PM CDT documented as of this encounter Last Filed Vital Signs Vital Sign Reading Time Taken Comments Blood Pressure 92/58 07/17/2022 2:43 PM CDT Pulse 99 07/17/2022 2:43 PM CDT Temperature 37.1 ??C (98.7 ??F) 07/17/2022 2:43 PM CD T Respiratory Rate 18 07/17/2022 2:43 PM CDT Oxygen Saturation 100% 07/17/2022 2:43 PM CDT Inhaled Oxygen Concentration - - Weight 42.6 kg (94 lb) 07/17/2022 2:43 PM CDT Height 157.5 cm (5' 2 ) 07/17/2022 2:43 PM CDT Body Mass Index 17.19 07/17/2022 2:43 PM CDT documented in this encounter Progress Notes * Jacquie Fair NP - 07/17/2022 2:40 PM CDT Images from the original note were not included. Annual Health Maintenance Exam Encounter Date: 07/18/2022 Reason for Visit: Annual Health Maintenance Exam Annual (Patient presents for an adult routine exam) History of Present Illness: Shagufta Lamar is a 36-year-old female here for her annual exam. Since I have seen pt last, she was seen by derm for recurrent all over body rash after having lazer hair removal. 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 Has strep testing done and confirmed she has strep a well which both things likely triggered her breakout. Is using topical steroids now. Getting better but still present. Has a uterine ablation scheduled coming up on 08/03 d/t having heavy menstrual bleeding. Reports that she still struggles falling asleep and staying asleep. Has been utilizing Ambien for sleep that does help some. Has tried other sleep aids without relief. Of note patient also suffers from chronic pain. Patient has history of POTS with syncope. Pt had an echo done in 2020 she states. Crow not have a copy of this. When asked if pt is hypermobile she states that she has and was able toshow me this on physical examination. Has hx of being able to dislocate her right shoulder. Family hx of aortic aneurysm in paternal grandmother. Hx of fibromyalgia, GI disturbance. Has not been testing for celiac before she states but wonders if she has. Reported Health: good Immunizations up to date: No PCV 20 encouraged Healthy Diet: Yes Regular Exercise: No Weight Concern: No Cancer Screening Up To Date: Yes Tobacco use: Yes, some days Alcohol use: No Dental exam: Yes Eye exam: Yes ROS: Review of Systems Constitutional: Positive for malaise/fatigue. Negative for chills, diaphoresis, fever and weight loss. HENT: Negative for congestion, ear discharge, ear pain, hearing loss, nosebleeds, sinus pain, sore throat and tinnitus. Eyes: Negative for blurred vision, double vision, photophobia, pain, discharge and redness. Respiratory: Negative for cough, hemoptysis, sputum production, shortness of breath, wheezing and stridor. Cardiovascular: Negative for chest pain, palpitations, orthopnea, claudication, leg swelling and PND. POTS Gastrointestinal: Positive for constipation, diarrhea and heartburn. Negative for abdominal pain, blood in stool, melena, nausea and vomiting. Genitourinary: Negative for dysuria, flank pain, frequency, hematuria and urgency. Musculoskeletal: Positive for back pain, joint pain and neck pain. Negative for falls and myalgias. Hypermobile Skin: Negative for itching and rash. Velvety and stretching skin Neurological: Negative for dizziness, tingling, tremors, sensory change, speech change, focal weakness, seizures, loss of consciousness, weakness and headaches. Endo/Heme/Allergies: Negative for environmental allergies and polydipsia. Does not bruise/bleed easily. Psychiatric/Behavioral: Negative for depression, hallucinations, memory loss, substance abuse and suicidal ideas. The patient has insomnia. The patient is not nervous/anxious. Medications: Outpatient Medications Marked as Taking for the 07/17/22 encounter (Office Visit) with Jacquie Fair NP Medication Sig Dispense Refill albuterol sulfate HFA 108 (90 Base) MCG/ACT inhaler Inhale 2 puffs into the lungs every 4 (four) hours as needed for Wheezing or Shortness of breath. 8.5 g 3 amitriptyline (ELAVIL) 25 MG tablet Take 1 tablet (25 mg total) by mouth nightly at bedtime. 90 tablet 1 tranexamic acid (LYSTEDA) 650 MG tablet triamcinolone (KENALOG) 0.1 % cream Apply topically 2 (two) times daily. zolpidem (AMBIEN) 5 MG tablet Take 1 tablet (5 mg total) by mouth nightly as needed for Sleep. 30 tablet 0 Allergies: Review of patient's allergies indicates: Allergen Reactions Cephalosporins Diarrhea and Vomiting CDIF Codeine Unknown and Shakiness Medrol [Methylprednisolone] Vomiting Vomiting, diarrhea Latex Rash Medical History: Past Medical History: Diagnosis Date ADHD (attention deficit hyperactivity disorder) Back spasm 2010 Blood transfusion without reported diagnosis 12/22/2020 due to miscarriage C. 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 Head injury 12/2020 fell and hit head Hypermobility syndrome Hypotension Miscarriage 12/21/2020 Neck muscle spasm 2010 POTS (postural orthostatic tachycardia syndrome) Surgical History: Past Surgical History: Procedure Laterality Date SECTION 2007 COLONOSCOPY 2009 D&C AFTER DELIVERY miscarriage ENLARGE BREAST Bilateral 06/14/2022 EXPLORATORY LAPAROSCOPY 2007 X2 2007 and 2009 HC TUBING LEEP REMOVAL OF FALLOPIAN TUBE 2009 REPAIR OF NASAL SEPTUM TONSILLECTOMY Social History: Social History Tobacco Use Smoking status: Some Days Packs/day: 0.00 Years: 0.50 Pack years: 0.00 Types: Cigarettes Passive exposure: Yes Smokeless tobacco: Never Vaping Use Vaping Use: Never used Substance Use Topics Alcohol use: Yes Comment: social, less than 1 drink per week Drug use: Never Family History: No family history on file. PE: Vitals: 07/17/22 1443 Patient Position: Sitting BP Location: Left arm Cuff size: Adult Regular BP: 92/58 Pulse: 99 Body mass index is 17.19 kg/m??. Physical Exam Constitutional: General: She is not in acute distress. Appearance: Normal appearance. She is well-developed. She is not ill-appearing, toxic-appearing or diaphoretic. HENT: Head: Normocephalic and atraumatic. Right Ear: Hearing, tympanic membrane, ear canal and external ear normal. Left Ear: Hearing, tympanic membrane, ear canal and external ear normal. Nose: Nose normal. Mouth/Throat: Mouth: Mucous membranes are moist. Pharynx: Uvula midline. No oropharyngeal exudate or posterior oropharyngeal erythema. Eyes: General: Lids are normal. Lids are everted, no foreign bodies appreciated. No scleral icterus. Extraocular Movements: Extraocular movements intact. Pupils: Pupils are equal, round, and reactive to light. Neck: Thyroid: No thyromegaly. Vascular: No carotid bruit. Trachea: No tracheal deviation. Cardiovascular: Rate and Rhythm: Normal rate and regular rhythm. Pulses: Normal pulses. Heart sounds: Normal heart sounds. No murmur heard. Pulmonary: Effort: Pulmonary effort is normal. No respiratory distress. Breath sounds: Normal breath sounds. No wheezing or rales. Chest: Chest wall: No tenderness. Abdominal: General: Bowel sounds are normal. There is no distension. Palpations: Abdomen is soft. There is no mass. Tenderness: There is no abdominal tenderness. There is no guarding or rebound. Hernia: No hernia is present. Musculoskeletal: General: No tenderness or deformity. Cervical back: Normal range of motion and neck supple. No edema. Right lower leg: No edema. Left lower leg: No edema. Comments: Hypermobility noted on examination. Lymphadenopathy: Cervical: No cervical adenopathy. Skin: General: Skin is warm and dry. Capillary Refill: Capillary refill takes less than 2 seconds. Coloration: Skin is not pale. Findings: No erythema or rash. Comments: Circular and oval pink scaley patches noted to bilateral arms and legs. Neurological: General: No focal deficit present. Mental Status: She is alert and oriented to person, place, and time. Deep Tendon Reflexes: Reflexes are normal and symmetric. Psychiatric: Mood and Affect: Mood normal. Behavior: Behavior normal. Thought Content: Thought content normal. Judgment: Judgment normal. Screening forms: PHQ-9: PHQ-9: 08/16/2021 1:05 PM 04/13/2022 8:28 AM PHQ2/PHQ 9 DEPRESSION SCREEN QUESTIONAIRE Little interest or pleasure in doing things Several days Feeling down, depressed, or hopeless Several days Patient Health Questionnaire-2 Score 2 Trouble falling or staying asleep, or sleeping too much Almost all Feeling tired or having little energy Almost all Poor appetite or overeating Almost all Feeling bad about yourself - or that you are a failure or have let yourself or your family down Notat all Trouble concentrating on things, such as reading the newspaper or watching television Almost all Moving or speaking so slowly that other people could have noticed? Or the opposite - being so fidgety or restless that you have been moving around a lot more than usual. Not at all Thoughts that you would be better off or hurting yourself in some way Not at all Patient Health Questionnaire-9 Score 14 How difficult have these problems made it for you to do your work, take care of things at home, or get along with other people? Extremely difficult LITTLE INTEREST OR PLEASURE IN DOING THINGS 0-Not at All FEELING DOWN, DEPRESSSED,OR HOPELESS 0-Not at All PHQ2 DEPRESSION TOTAL SCORE 0 LUANA-7 (Generalized Anxiety Disorder) Screening 04/13/2022 8:20 AM LUANA-7 Feeling nervous, anxious and on edge 1 - several days Not being able to stop or control worrying 0 - not at all Worrying too much about different things 0 - not at all Trouble Relaxing 1 - several days Being so restless that it's hard to sit still 0 - not at all Becoming easily annoyed or irritable 3 - nearly every day Feeling afraid as if something awful might happen 0 - not at all Total Score 5 If you checked off any problems, how difficult have those problems made it for you to do your work take care of things at home or get along with other people? very difficult Diagnoses, Recommendations, and Plan 1. Annual physical exam 2. Hypermobile Ihsan-Danlos syndrome Ambulatory referral to Genetics 3. POTS (postural orthostatic tachycardia syndrome) Ambulatory referral to Genetics 4. Alternating constipation and diarrhea CELIAC DISEASE ANTIBODY PANEL 5. Immunity to hepatitis B virus demonstrated by serologic test HEPATITIS B SURFACE ANTIBODY 6. Arthralgia, unspecified joint MEKA IFA SCREEN WI RFX TO TITER/CASCADE ([facility] ONLY) amitriptyline (ELAVIL) 25 MG tablet 7. Insomnia, unspecified type amitriptyline (ELAVIL) 25 MG tablet 8. Need for hepatitis C screening test HEPATITIS C ANTIBODY W/RFX TO HCV RNA ([facility] ONLY) 9. Other chronic pain Ambulatory referral to Genetics High suspicion for hypermobile EDS based on her PMH and physical examination. Beighton score positive for hypermobile EDS. D/t family hx of AA with refer pt to genetics/EDS specialist. Will trial pt on Amitriptyline for insomnia and chronic pain. Discussed how to take and side effects. Past labs reviewed. Orders placed to assess for celiac, MEKA for autoimmune cause of her symptoms aswell. Pt is needing a hepatitis B titer checked for a new job. Will order. 1. Medications/DME - Continue current medications. 2. Lab/Diagnostics - See orders. 3. Education - Current treatment discussed and patient education given as appropriate. EDS education given. 4. Referrals - Specialist referral: Genetics. 5. RTC - 1 month(s) I personally spent a total of 15 minutes on the day of the encounter. This includes [id number] and hlv-gffb-[id number]-face time I provided on the day of the encounter & excludes time spent performing separately reportable services. I also spent 40 minutes on EDS education, evaluation, treatment and plan, Encourage following a low fat, low carb diet, encorperate whole foods such as fresh fruits and vegetables and whole grains into your diet, encourage 5 small meals per day. Avoid sugar-sweetened beverages, added sugars, processed meats, refined grains and oils or other processed foods. Encourage to get at least 150 minutes of moderate aerobic activity or 75 minutes of vigorous aerobic activity a week, or a combination of moderate and vigorous activity.Discussed routine labs, preventative screenings, vaccinations, blood pressure, weight at today's visit. Encourage getting dental exam every 6 months and a yearly eye exam or as instructed to do so. Encourage getting at least 8 hours of restful sleep per night. JACQUIE FAIR NP 07/18/2022 Cosigned by Lg Baldwin MD at 07/23/2022 4:28 AM CDT documented in this encounter Plan of Treatment Scheduled Orders Name Type Priority Associated Diagnoses Orde r Schedule CELIAC DISEASE ANTIBODY PANEL Lab Routine Alternating constipation and diarrhea Expected: 07/17/2022, Expires: 07/17/2023 HEPATITIS C ANTIBODY W/RFX TO HCV RNA ([facility] ONLY) Lab Routine Need for hepatitis C screening test Expected: 07/17/2022, Expires: 07/18/2023 Scheduled Referrals Name Type Priority Associated Diagnoses Orde r Schedule Ambulatory referral to Genetics Referral Routine Hypermobile Ihsan-Danlos syndrome (HHS/HCC) POTS (postural orthostatic tachycardia syndrome) Other chronic pain Ordered: 07/17/2022 documented as of this encounter Procedures Procedure Name Priority Date/Time Associated Diagnosis Comments HEPATITIS C ANTIBODY W/RFX TO HCV RNA Routine 07/31/2022 10:49 AM CDT MEKA IFA SCREEN WI RFX TO TITER/CASCADE Routine 07/31/2022 10:49 AM CDT Arthralgia, unspecified joint HEPATITIS B SURFACE ANTIBODY Routine 07/31/2022 10:49 AM CDT Immunity to hepatitis B virus demonstrated by serologic test CELIAC DISEASE ANTIBODY PANEL Routine 07/31/2022 10:49 AM CDT documented in this encounter Results * HEPATITIS C ANTIBODY W/RFX TO HCV RNA (07/31/2022 10:49 AM CDT) HEPATITIS C AB NON-REACT ANKIT NON-REACT ANKIT [facility] SIGNAL TO CUTOFF 0.07 <1.00 [facility] Comment: HCV antibody was non-reactive. There is no laboratory evidence of HCV infection. In most cases, no further action is required. However, if recent HCV exposure is suspected, a test for HCV RNA (test code 00278) is suggested. For additional information please refer to http://education.[facility]/faq/PQY63c3 (This link is being provided for informational/ educational purposes only.) 07/31/2022 10:4 9 AM CDT 07/31/2022 10:49 AM CDT Narrative Resulting Agency Comment Performing Organization Information: ?Site ID: [id number] ?Name: [employer] ?Address: [address] [place] [address] ?Director: Nicolle Roach MD us Jacquieluis Fair NP LABORATORY Final Res ult [facility] [place] [address] [place] [address], * CELIAC DISEASE ANTIBODY PANEL (07/31/2022 10:49 AM CDT) Pathologist [facility] TISSUE TRANSGLUTAMINASE IGG AB <1.0 U/mL [facility] Comment: Value ?Interpretation ----- ? <15.0 ?Antibody not detected > or = 15.0 ?Antibody detected TISSUE TRANSGLUTAMINASE IGA AB <1.0 U/mL [facility] Comment: Value ?Interpretation ----- ? <15.0 ?Antibody not detected > or = 15.0 ?Antibody detected DEAMIDATED GLIADIN IGA 1.7 U/mL [facility] Comment: Value ?Interpretation ----- ? <15.0 ?Antibody not detected > or = 15.0 ?Antibody detected DEAMIDATED GLIADIN IGG <1.0 U/mL [facility] Comment: Value ?Interpretation ----- ? <15.0 ?Antibody not detected > or = 15.0 ?Antibody detected IGA 292 47 - 310 mg/dL [facility] 07/31/2022 10:4 9 AM CDT 07/31/2022 10:49 AM CDT Narrative Resulting Agency Comment Performing Organization Information: ?Site ID: [id number] ?Name: [employer] ?Address: [address] [place] [address] ?Director: Anselmo Resendez us Jacquie Fair CARAMEL COLORING OPERATOR LABORATORY Final Res ult [facility] [address] [place] [address] * (ABNORMAL) MEKA IFA SCREEN WI RFX TO TITER/CASCADE ([facility] ONLY) (07/31/2022 10:49 AM CDT) MEKA POSITIVE (A) NEGATIVE [facility] Comment: MEKA IFA is a first line screen for detecting the presence of up to approximately 150 autoantibodies in various autoimmune diseases. A positive MEKA IFA result is suggestive of autoimmune disease and reflexes to titer, pattern and the 3 tiered Multiplex 11 Antibody Haakon. Testing in the Haakon stops at the first positive result, and does not preclude additional positive results. Further laboratory testing may be considered if clinically indicated. For additional information, please refer to http://education.[employer]/faq/RIF662 (This link is being provided for informational/ educational purposes only.) ?? MEKA TITER 1:320(H) titer [facility] Comment: ?Reference Range ?<1:40 ?Negative ?1:40-1:80 ?Low Antibody Level ?>1:80 ?Elevated Antibody Level MEKA PATTERN Nuclear, Dense Fine Speckled (A) [facility] Comment: Dense fine speckled pattern is seen in normal individuals and rarely associated with systemic lupus erythematosis (SLE), Sjogren's syndrome and systemic sclerosis. AC-2: Dense Fine Speckled International Consensus on MEKA Patterns (https://doi.org/10.1515/ogqi-8475-9469) DNA (DS) ANTIBODY 24(H) IU/mL [employer] [facility] Comment: ? IU/mL ? Interpretation ? < or = 4 ?Negative ? 5-9 ? Indeterminate ? > or = 10 ?? Positive SM ANTIBODY <1.0 NEG <1.0 NEG AI [facility] SM/PROVIDER ENROLLMENT SPECIALIST AB S/P/B <1.0 NEG <1.0 NEG AI [employer] [facility] PROVIDER ENROLLMENT SPECIALIST (U1) AB S/P/B <1.0 NEG <1.0 NEG AI [facility] CHROMATIN (NUCLEOSOMAL)AB <1.0 NEG <1.0 NEG AI [facility] Comment: ANTIBODY PREVALENCE IN TIER 1 ? Double stranded DNA (dsDNA) antibodies are present in 57% to 62% systemic lupus erythematosus (SLE), 10% to 43% polymyositis, 11% to 20% Sjogren's syndrome, 8% systemic sclerosis (scleroderma) and 0% to 8% mixed connective tissue disease (MCTD). ?? Chromatin antibody is present in >80% MCTD, 37% to 73% SLE, 14% systemic sclerosis, 12% Sjogren's syndrome and 8% polymyositis. ?? Ribonucleoprotein (PROVIDER ENROLLMENT SPECIALIST) antibodies are to PROVIDER ENROLLMENT SPECIALIST A and/or PROVIDER ENROLLMENT SPECIALIST 68kD proteins; antibodies to one or both are present in >80% MCTD, 22% to 48% SLE, 14% systemic sclerosis, 12% Sjogren's and 8% polymyositis. ?? Sm/PROVIDER ENROLLMENT SPECIALIST antibodies are directed to epitopes formed in a complex of Sm and PROVIDER ENROLLMENT SPECIALIST; antibodies to the Sm/PROVIDER ENROLLMENT SPECIALIST complex are present in 54% to 94% MCTD, 30% SLE, 4% systemic sclerosis, and 9% Sjogren's and polymyositis. ?? Sm antibody is present in 20% to 30% SLE, 8% MCTD, 10% polymyositis, 0% systemic sclerosis and 4% Sjogren's syndrome. ?? Double stranded DNA, Chromatin, Ribonucleoprotein, Sm/PROVIDER ENROLLMENT SPECIALIST complex and Sm antibodies are present in <2% of normal blood donors. ?? The Haakon does not rule out autoimmune disease characterized by other autoantibody specificities such as rheumatoid arthritis, autoimmune hepatitis, primary biliary cirrhosis, autoimmune thyroiditis, Summit's disease, pernicious anemia, autoimmune neuropathies, vasculitis, celiac disease and bullous disease. Please contact your local [employer] laboratory if you are interested in additional testing. INTERPRETATION [facility] Comment: dsDNA antibody is frequently positive in patients with systemic lupus erythematosus; however, it may be positive in a lesser percentage of patients with rheumatoid arthritis and other connective tissue disease. A positive result at this stage of testing stops further testing, and does not preclude additional positive antibodies. Clinical correlation is required to assess the need for testing additional analytes. 07/31/2022 10:4 9 AM CDT 07/31/2022 10:49 AM CDT Narrative Resulting Agency Comment Performing Organization Information: ?Site ID: [id number] ?Name: Laura Lewis ?Address: [address] [place], [place] [address] [address] ?Director: Nicolle Roach MD Jacquie Fair NP LABORATORY Final Res ult Performing Organization Address [facility] de Phone Number [facility] Remicalm [facility] [address] [place], [place] [id number] [place] [address] * (ABNORMAL) HEPATITIS B SURFACE ANTIBODY (07/31/2022 10:49 AM CDT) HEPATITIS B SURFACE AB REACTIVE( A) NON-REACT ANKIT [facility] Comment: Our records indicate that you have ordered a client custom reflex order code. Only the initial test was performed because we do not have a client custom reflex testing authorization request form on file for you. Please contact a client support administrator if you would like additional testing done on this patient or contact your industrial hire sales assistant to obtain a client custom reflex testing authorization request form. 07/31/2022 10:4 9 AM CDT 07/31/2022 10:49 AM CDT Narrative Resulting Agency Comment Performing Organization Information: ?Site ID: [id number] ?Name: Laura Lewis ?Address: [facility] [place] [address] ?Director: Nicolel Roach MD Jacquie Fair NP LABORATORY Final Res ult Performing Organization Address [facility] de Phone Number [facility] [address] [place], [place] [id number] [place] [address] documented in this encounter Visit Diagnoses Diagnosis Annual physical exam Routine general medical examination at a health care facility Hypermobile Ishan-Danlos syndrome (HHS/HCC) POTS (postural orthostatic tachycardia syndrome) Tachycardia, unspecified Alternating constipation and diarrhea Other symptoms involving digestive system Immunity to hepatitis B virus demonstrated by serologic test Arthralgia, unspecified joint Insomnia, unspecified type Need for hepatitis C screening test Special screening examination for other specified viral diseases Other chronic pain documented in this encounter Administered Medications Administered Medications Medication Order MAR Action Action Date Dose Rate Site Rho D Immune Globulin Inj Given 12/21/2020 300 mcg Rho D Immune Globulin Inj Given 10/02/2018 300 mcg documented in this encounter Additional Health Concerns Assessment Noted Time PHQ-9 Depression Total Score: 14 023 8:28 AM GARAGE MECHANIC documented as of this encounter Care Teams Lpn Rn Hospice Relationship Specialty Start Date End Date Jacquie Fair NP [address] [place] [address] PCP - General NURSE PRACTITIONER 06/20/21 documented as of this encounter
--- OUTSIDE RECORDS SUMMARY | 2024-02-27 09:33 | XMS_ITS | Encounter Summary ---
Author Organization [facility] Address [address] [place] [address]. [place] [address] [place] [address] Care Team Providers Care Resource Manager Forester Name Role Phone Jacquie Fiar NP Primary Care Provider [phone] [phone] Reason for Visit * Reason Comments PPD Patient presents for a PPD read Encounter Details Date Type Department Care Team (Latest Contact Info) Description 08/30/2022 11:00 AM CDT Allied Health/Nurse Visit [facility] Medical [facility] Family Medicine - [place] [address] [id number] Jacquie Fair, TRICIA [address] [place] [address] [place] [id number] PPD (Patient presents for a PPD read) Social History Tobacco Use Types Packs/Day Years [...] on file Legal Sex Female 9:41 PM WARD MAID Gender Identity Female 04/24/2021 2:22 PM WARD MAID Sexual Orientation Choose not to disclose 2021 2:22 PM WARD MAID documented as of this encounter Plan of Treatment Not on file documented as of this encounter Visit Diagnoses Diagnosis Encounter for PPD skin test reading- Primary documented in this encounter Additional Health Concerns Assessment Noted Time PHQ-9 Depression Total Score: 14 023 8:28 AM WARD MAID documented as of this encounter Care Teams Resource Manager Forester Relationship Specialty Start Date End Date Jacquie Fair NP [address] [place] [address] [place] [address] PCP - General NURSE PRACTITIONER 06/20/21 documented as of this encounter
--- OUTSIDE RECORDS SUMMARY | 2024-02-27 09:33 | XMS_ITS | Encounter Summary ---
Author Organization [facility] Address [address] [place] [address]. [place] [address] [place] [address] Care Team Providers Care Formstone Fitter Name Role Phone Jacquie Fair NP Primary Care Provider [phone] Reason for Referral * Consultation (Urgent) - Closed Specialty Diagnoses / Procedures Referred By Contac t Referred To Contact RHEUMATOLOGY Diagnoses Elevated antinuclear antibody (MEKA) level Chronic joint pain Fibromyalgia Hypermobile joint syndrome of multiple sites Procedures OFFICE/OUTPT VISIT,NEW,LEVL III OFFICE/OUTPT VISIT,NEW,LEVL IV OFFICE/OUTPT VISIT,NEW,LEVL V OFFICE/OUTPT VISIT,EST,LEVL III OFFICE/OUTPT VISIT,EST,LEVL IV OFFICE/OUTPT VISIT,EST,LEVL V Jacquie Fair NP [address] [place] [address] Phone: tel: fax: Dora Velasquez MD [address] [facility] [place] [address] [place] [address] Phone: tel: fax: Referral ID Status Reason Start Date Expiration Date V isits Requested Visits Authorized [id number] Closed Specialty Services 08/09/2022 08/10/2023 99 99 Scheduling Instructions Please refer pt to Dr. Sharlene Back with [facility]. 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 No / Unsure 07/17/2022 2:23 PM CDT documented as of this encounter Progress Notes * Jacquie Fair NP - 08/09/2022 10:40 AM CDT Referral to rheum placed. documented in this encounter Plan of Treatment Scheduled Referrals Name Type Priority Associated Diagnoses Orde r Schedule Ambulatory referral to Rheumatology Referral Routine Elevated antinuclear antibody (MEKA) level Chronic joint pain Fibromyalgia Hypermobile joint syndrome of multiple sites Ordered: 08/09/2022 documented as of this encounter Visit Diagnoses Diagnosis Elevated antinuclear antibody (MEKA) level- Primary Other and unspecified nonspecific immunological findings POTS (postural orthostatic tachycardia syndrome) Tachycardia, unspecified Hypermobile Ihsan-Danlos syndrome (HHS/HCC) Chronic joint pain Pain in joint, site unspecified Fibromyalgia Mylagia and myositis, unspecified Hypermobile joint syndrome of multiple sites Other joint derangement, not elsewhere classified, multiple sites documented in this encounter Additional Health Concerns Assessment Noted Time PHQ-9 Depression Total Score: 14 023 8:28 AM FOREST ECOLOGY PROFESSOR documented as of this encounter Care Teams Formstone Fitter Relationship Specialty Start Date End Date Jacquie Fair NP [address] [place] [address] [place] [address] PCP - General NURSE PRACTITIONER 06/20/21 documented as of this encounter
--- OUTSIDE RECORDS SUMMARY | 2024-02-27 09:33 | XMS_ITS | Encounter Summary ---
Author Organization [facility] Address [address] [place] [address]. [place] [address] [place] [address] Care Team Providers Care Triage Register Nurse Name Role Phone Jacquie Fair NP Primary Care Provider [phone] Reason for Visit * Reason Onset Date Comments Referral 07/27/2022 Encounter Details Date Type Department Care Team (Late st Contact Info) Description 07/27/[address] 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 No / Unsure 07/17/2022 2:23 PM CDT documented as of this encounter Progress Notes * Jacquie Fair NP - 07/31/2022 5:02 PM CDTAddended by: JACQUIE FAIR on: 07/31/2022 05:02 PM Modules accepted: Orders * Marley Bills MA - 07/31/2022 4:07 PM CDT I spoke with the patient and she stated its almost been 2 years since her last Echo. She had it done in Dec 2020. She can try to get ahold of the results. I you want to order a new once she will go to [facility] in [place]. * Marley Bills MA - 07/31/2022 3:30 PM CDT I lmovm to call office. * Marley Bilsl MA - 07/27/2022 1:59 PM CDT I called patient 07/26/22 and 07/27/22. No answer and vm full. I will send a [employer] chat message. * Marley Bills MA - 07/27/2022 1:59 PM CDT Images from the original note were not included. RE: Referral Received: Yesterday TRICIA Rogers MA Can you let the referral center know that patient is needing an echocardiogram prior to seeing the genetic doctor I referred her too. I do recall patient stated that she had one done not too long agow[place] living in [place]. Can you find out where patient had her echo done and see how long ago it was and how we can go about getting this echo. * Marley Bills MA - 07/27/2022 1:58 PM CDT Images from the original note were not included. Referral Received: 2 days ago Jacquie Trotter Cc: Yannick Crum Prior Authorization Deven Good Afternoon We received a call from [facility] and they stated that patient needs an echocardiogram before they can schedule patient. Can you put in a referral for an echocardiogram? Please let us know when its submitted so we can begin processing the referral and get the patient schedule for this referral. Look to hear from you Thank you documented in this encounter Plan of Treatment Not on file documented as of this encounter Visit Diagnoses Diagnosis POTS (postural orthostatic tachycardia syndrome)- Primary Tachycardia, unspecified Hypermobile Ihsan-Danlos syndrome (HHS/HCC) documented in this encounter Additional Health Concerns Assessment Noted Time PHQ-9 Depression Total Score: 14 023 8:28 AM PRODUCT DESIGN SPECIALIST documented as of this encounter Care Teams Triage Register Nurse Relationship Specialty Start Date End Date Jacquie Fair NP [address] [place] [address] PCP - General NURSE PRACTITIONER 06/20/21 documented as of this encounter
--- OUTSIDE RECORDS SUMMARY | 2024-02-27 09:33 | XMS_ITS | Encounter Summary ---
Author Organization [facility] Address [address] [place] [address]. [place] [address] [place] [address] Care Team Providers Care Data Center Solutions Architect Name Role Phone Jacquie Fair NP Primary Care Provider [phone] [phone] Reason for Visit * Reason Onset Date Comments Refill Request 07/13/2022 Encounter Details Date Type Department Care Team (Late st Contact Info) Description 07/13/2022 Telephone [facility] Medical [facility] Family Medicine - [place] [address] [facility] [address] [place] [phone] Jacquie Fair NP [address] [place] [address] [place] [id number] Refill Request Social History Tobacco Use Types Packs/Day [...] on file Legal Sex Female 9:41 PM GREASE REFINER OPERATOR Gender Identity Female 04/24/2021 2:22 PM GREASE REFINER OPERATOR Sexual Orientation Choose not to disclose 2021 2:22 PM GREASE REFINER OPERATOR documented as of this encounter Progress Notes * Jacquie Fair NP - 07/14/2022 8:44 AM CDTAddended by: JACQUIE FAIR on: 07/14/2022 08:44 AM Modules accepted: Orders * Hialey Aldana - 07/13/2022 1:02 PM CDT Refill request for zolpidem [place] documented in this encounter Plan of Treatment Not on file documented as of this encounter Visit Diagnoses Diagnosis Primary insomnia Persistent disorder of initiating or maintaining sleep documented in this encounter Additional Health Concerns Assessment Noted Time PHQ-9 Depression Total Score: 14 023 8:28 AM GREASE REFINER OPERATOR documented as of this encounter Care Teams Data Center Solutions Architect Relationship Specialty Start Date End Date Jacquie Fair NP [address] [place] [address] PCP - General NURSE PRACTITIONER 06/20/21 documented as of this encounter
--- OUTSIDE RECORDS SUMMARY | 2024-02-27 09:33 | XMS_ITS | Encounter Summary ---
Author Organization [facility] Address [address] [place] [address]. [place] [address] [place] [address] Care Team Providers Care Clinical Sales Consultant Name Role Phone Jacquie Fari NP Primary Care Provider [phone] Encounter Details Date Type Department Care Team (Latest Contact Info) Description 06/29/2022 Scan [facility] Scanned, Doc [...] on file Legal Sex Female 9:41 PM COMPANY MARKER Gender Identity Female 04/24/2021 2:22 PM COMPANY MARKER Sexual Orientation Choose not to disclose 2021 2:22 PM COMPANY MARKER documented as of this encounter Plan of Treatment Not on file documented as of this encounter Visit Diagnoses Not on filedocumented in this encounter Additional Health Concerns Assessment Noted Time PHQ-9 Depression Total Score: 14 023 8:28 AM COMPANY MARKER documented as of this encounter Care Teams Clinical Sales Consultant Relationship Specialty Start Date End Date Jacquie Fair NP [address] [place] [address] PCP - General NURSE PRACTITIONER 06/20/21 documented as of this encounter
--- OUTSIDE RECORDS SUMMARY | 2024-02-27 09:33 | XMS_ITS | Encounter Summary ---
Author Organization [facility] Address [address] [place] [address]. [place] [address] [place] [address] Care Team Providers Care Junior Web Developer Name Role Phone Jacquie Fair NP Primary Care Provider [phone] Reason for Visit * Reason Onset Date Comments Other 09/10/2022 Encounter Details Date Type Department Care Team (Late st Contact Info) Description 09/10/2022 Telephone [facility] Family Medicine - [place] [address] [phone] Jacquie Fair, TRICIA [address] [place] [address] [place] [address] Other Social History Tobacco Use Types Packs/Day Years [...] on file Legal Sex Female 9:41 PM SIZING MACHINE AND DRIER OPERATOR Gender Identity Female 04/24/2021 2:22 PM SIZING MACHINE AND DRIER OPERATOR Sexual Orientation Choose not to disclose 2021 2:22 PM SIZING MACHINE AND DRIER OPERATOR documented as of this encounter Progress Notes * Marley Bills MA - 09/12/2022 9:06 AM CDT See my chart message. * Marley Bills MA - 09/10/2022 2:23 PM CDT I called patient no answer or vm * Jacquie Fair NP - 09/10/2022 12:05 PM CDT Her Rubeola IGG shows immunity. Rubeola is also known as Measles. Maybe print out her result so shecan show her employer. If there is another particular lab test they need to let me know. Also her Tdap was given on 07/09/18. I would just print out her vaccination sheet and she can providethat to her employer. * Hailey Aldana - 09/10/2022 11:45 AM CDT Shagufta's employer is needing proof of immunity to measles. They are also telling her she needs another tdap. Can you write something stating she is up to date on tdap? documented in this encounter Plan of Treatment Not on file documented as of this encounter Visit Diagnoses Not on filedocumented in this encounter Additional Health Concerns Assessment Noted Time PHQ-9 Depression Total Score: 14 023 8:28 AM SIZING MACHINE AND DRIER OPERATOR documented as of this encounter Care Teams Junior Web Developer Relationship Specialty Start Date End Date Jacqiue Fair NP [address] [place] [address] PCP - General NURSE PRACTITIONER 06/20/21 documented as of this encounter
--- OUTSIDE RECORDS SUMMARY | 2024-02-27 09:33 | XMS_ITS | Encounter Summary ---
Author Organization [facility] Address [address] [place] [address]. [place] [address] [place] [address] Care Team Providers Care Inspector Raw Quartz Name Role Phone Jacquie Fair NP Primary Care Provider [phone] [phone] Encounter Details Date Type Department Care Team (Latest Contact Info) Description 08/30/2022 Travel Social History Tobacco Use Types Packs/Day [...] on file Legal Sex Female 9:41 PM AUTOMATIC SILK SCREEN PRINTER Gender Identity Female 04/24/2021 2:22 PM AUTOMATIC SILK SCREEN PRINTER Sexual Orientation Choose not to disclose 2021 2:22 PM AUTOMATIC SILK SCREEN PRINTER documented as of this encounter Plan of Treatment Not on file documented as of this encounter Visit Diagnoses Not on filedocumented in this encounter Additional Health Concerns Assessment Noted Time PHQ-9 Depression Total Score: 14 023 8:28 AM AUTOMATIC SILK SCREEN PRINTER documented as of this encounter Care Teams Inspector Raw Quartz Relationship Specialty Start Date End Date Jacquie Fair NP [address] [place] [address] PCP - General NURSE PRACTITIONER 06/20/21 documented as of this encounter
--- OUTSIDE RECORDS SUMMARY | 2024-02-27 09:33 | XMS_ITS | Encounter Summary ---
Author Organization [facility] Address [address] [place] [address]. [place] [address] [place] [address] Care Team Providers Care Gospel Singer Name Role Phone Jacquie Fair NP Primary Care Provider [phone] [phone] Reason for Visit * Reason Comments Follow Up Patient presents to follow up on HEDS Encounter Details Date Type Department Care Team (Late Contact Info) Description 08/28/2022 1:40 PM CDT Office Visit [facility] Family Medicine [facility] [address] [address] Jacquie Fair, TRICIA [address] [place] [id number] Follow Up (Patient presents to follow up on HEDS) Social History Tobacco Use Types Packs/Day Years [...] on file Legal Sex Female 9:41 PM GRINDER GEAR Gender Identity Female 04/24/2021 2:22 PM GRINDER GEAR Sexual Orientation Choose not to disclose 2021 2:22 PM GRINDER GEAR documented as of this encounter Last Filed Vital Signs Vital Sign Reading Time Taken Comments Blood Pressure 96/61 08/28/2022 1:48 PM CDT Pulse 106 08/28/2022 1:48 PM CDT Temperature 37.5 ??C (99.5 ??F) 08/28/2022 1:48 PM CD T Respiratory Rate 16 08/28/2022 1:48 PM CDT Oxygen Saturation 100% 08/28/2022 1:48 PM CDT Inhaled Oxygen Concentration - - Weight 42.6 kg (94 lb) 08/28/2022 1:48 PM CDT Height 157.5 cm (5' 2 ) 08/28/2022 1:48 PM CDT Body Mass Index 17.19 08/28/2022 1:48 PM CDT documented in this encounter Progress Notes * Marley Sheppard MA - 08/28/2022 1:40 PM CDTAddended by: MARLEY SHEPPARD on: 08/28/2022 03:46 PM Modules accepted: Orders * Jacquie Fair NP - 08/28/2022 1:40 PM CDT Reason for Visit: Follow Up (Patient presents to follow up on HEDS) History of Present Illness: Shagufta is a 36-year-old female presents office for 1 month follow-up. At patient's last office visit she was started on amitriptyline 25mg nightly to help with chronic pain as well as insomnia. She reports is tolerating well however she has not noticed the medication has done anything. She would be okay to increase the dose to 50 mg. Patient also does take Ambien for sleep however she does not does not have to use nightly. UDS and CSA will need to be completed today. Patient has been referred to EDS genetic specialist however patient is needing an echo before appointment and pt is still needing to schedule. Patient also was referred to rheumatology due to positive MEKA with high titer. Patient is needing to schedule this appointment still as well. For patient's job she is needing an MMR and varicella titer as well as a TB skin test. Medications: Current Outpatient Medications: albuterol sulfate HFA 108 (90 Base) MCG/ACT inhaler, Inhale 2 puffs into the lungs every 4 (four) hours as needed for Wheezing or Shortness of breath., Disp: 8.5 g, Rfl: 3 amitriptyline (ELAVIL) 25 MG tablet, Take 2 tablets (50 mg total) by mouth nightly at bedtime., Disp: 90 tablet, Rfl: 1 zolpidem (AMBIEN) 5 MG tablet, Take 1 tablet (5 mg total) by mouth nightly as needed for Sleep., Disp: 30 tablet, Rfl: 0 Review of patient's allergies indicates: Allergen Reactions Cephalosporins Diarrhea and Vomiting CDIF Codeine Unknown and Shakiness Medrol [Methylprednisolone] Vomiting Vomiting, diarrhea Latex Rash Past Medical History: Diagnosis Date ADHD (attention deficit hyperactivity disorder) Anemia 2006 Anxiety Asthma 2003 Back spasm 2009 Blood transfusion without reported diagnosis 12/22/2020 due to miscarriage C. 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 Past Surgical History: Procedure Laterality Date APPENDECTOMY 2022 BREAST SURGERY 2022 SECTION 2008 COLONOSCOPY 2009 D&C AFTER DELIVERY miscarriage ENLARGE [...] / Stillbirths Paternal Grandmother Matthew Diabetes Brother [place] Miscarriages / Stillbirths Sister Juliet ROS: Review of Systems Constitutional: Positive for [...] patient is not nervous/anxious. Physical Exam Constitutional: Appearance: Normal appearance. HENT: Mouth/Throat: Mouth: Mucous membranes are moist. Eyes: Pupils: Pupils are equal, round, and reactive to light. Cardiovascular: Rate and Rhythm: Normal rate and regular rhythm. Pulses: Normal pulses. Heart sounds: Normal heart sounds. Pulmonary: Effort: Pulmonary effort is normal. Breath sounds: Normal breath sounds. Musculoskeletal: Cervical back: Normal range of motion. Skin: General: Skin is warm and dry. Neurological: Mental Status: She is alert. Psychiatric: Mood and Affect: Mood normal. Behavior: Behavior normal. Thought Content: Thought content normal. Judgment: Judgment normal. Filed Vitals: 08/28/22 1348 BP: 96/61 Pulse: (!) 106 Resp: 16 Temp: 99.5 ??F (37.5 ??C) TempSrc: Temporal SpO2: 100% Weight: 42.6 kg (94 lb) Height: 5' 2 (1.575 m) Assessment/Recommendations/Plan 1. Insomnia, unspecified type UDS and CSA completed today d/t taking Ambien. Pt does not take nightly however. Pt has not reported any side effects from Amitriptyline but has not felt the mediation has done anything so we discussed trying higher dose of 50 mg at this time. - MG/PCCL UDS W CONF; Future - MG/PCCL UDS W CONF - amitriptyline (ELAVIL) 25 MG tablet; Take 2 tablets (50 mg total) by mouth nightly at bedtime. Dispense: 90 tablet; Refill: 1 2. Immunity status testing - VARICELLA ZOSTER IGG; Future - RUBEOLA IGG; Future - MUMPS AB IGG; Future - VARICELLA ZOSTER IGG - RUBEOLA IGG - MUMPS AB IGG 3. Positive MEKA (antinuclear antibody) -Referral to rheum placed, pt encouraged to schedule. 4. Hypermobile joints -Awaiting Echo and pt to see EDS genetic specialist. 5. Arthralgia, unspecified joint - amitriptyline (ELAVIL) 25 MG tablet; Take 2 tablets (50 mg total) by mouth nightly at bedtime. Dispense: 90 tablet; Refill: 1 Follow up: Pt will be coming back later today for TB skin test. 4 months or sooner if problems arise JACQUIE FAIR NP 08/28/2022 2:28 PM documented in this encounter Plan of Treatment Not on file documented as of this encounter Procedures Procedure Name Priority Date/Time Associated Diagnosis Comments MUMPS AB IGG Routine 08/28/2022 4:15 PM CDT Immunity status testing VARICELLA ZOSTER IGG Routine 08/28/2022 4:15 PM CDT Immunity status testing RUBEOLA IGG Routine 08/28/2022 4:15 PM CDT Immunity status testing TB INTRADERMAL TEST (BACK OFFICE) Routine 08/28/2022 3:37 PM CDT Encounter for PPD skin test reading MG/PCCL UDS W CONF Routine 08/28/2022 1: 50 PM CDT Insomnia, unspecified type documented in this encounter Results * MUMPS AB IGG (08/28/2022 4:15 PM CDT) MUMPS IGG AB 47.5 Immune >10 AU/mL [facility] Comment: ?Negative ? <9.0 ?Equivocal ??9.0 - 10.9 ?Positive ?>10.9 A positive result generally indicates past exposure to Mumps virus or previous vaccination. 08/28/2022 4:15 PM CDT 08/28/2022 Narrative [facility] - 08/29/2022 7:07 AM CDT Performed at: ??01 - [facility] [address] [facility], [place], [place] ??[id number] Objects Conservator: David Edmond PhD, Phone: ??[phone] Jacquie Fair EAR NOSE THROAT PHYSICIAN LABORATORY Final Res ult [facility] [address] [place] [address] [facility] * RUBEOLA IGG (08/28/2022 4:15 PM CDT) RUBEOLA IGG 19.2 Immune >16 AU/mL [facility] 1 Comment: ? Negative ?<13.5 ? Equivocal 13.5 - 16.4 ? Positive ?>16.4 Presence of antibodies to Rubeola is presumptive evidence of immunity except when acute infection is suspected. 08/28/2022 4:15 PM CDT 08/28/2022 Narrative [facility] - 08/29/2022 7:07 AM CDT Performed at: ??01 - [facility] ??[id number] Objects Conservator: David Edmond PhD, Phone: ??[phone] Jacquie Fair EAR NOSE THROAT PHYSICIAN LABORATORY Final Res ult Performing Organization Address [facility] de Phone Number [facility] [address] [place] [address] [facility] * VARICELLA ZOSTER IGG (08/28/2022 4:15 PM CDT) Pathologist [facility] VARICELLA ZOSTER IGG EIA 1,074 Immune >16 index [facility] 1 Comment: ? Negative ?<135 ? Equivocal ?135 - 165 ? Positive ?>165 A positive result generally indicates exposure to the pathogen or administration of specific immunoglobulins, but it is not indication of active infection or stage of disease. 08/28/2022 4:15 PM CDT 08/28/2022 Narrative [facility] - 08/29/2022 8:10 AM CDT Performed at: ??01 - [facility] ??[id number] Objects Conservator: David Edmond PhD, Phone: ??[phone] Jacquie Fair EAR NOSE THROAT PHYSICIAN LABORATORY Final Res ult Performing Organization Address [facility] de Phone Number [facility] [address] [place] [address] [facility] 1 * TB INTRADERMAL TEST (BACK OFFICE) (08/28/2022 3:37 PM CDT) MM INDURATION 0mm PPD SKIN TEST negative NOT REQUIRED 08/28/2022 3:37 PM CDT Jacquie Fair NP MICROBIOLOGY - GENERAL OR DERABLES Final Result * MG/PCCL UDS W CONF (08/28/2022 1:50 PM CDT) RESULT SUMMARY [facility] Comment: ?Prescribed ?Prescribed ?Not Prescribed ?Consistent ?Inconsistent ?Inconsistent ?Prescribed no testing ordered: ?? Zolpidem PRESCRIBED DRUG 1 (U) Zolpidem [facility] FENTANYL SCREEN (U) NEGATIVE <0.5 ng/mL [facility] MORPHINE (U) NEGATIVE <10 ng/mL [facility] DESMETHYLTRAMADOL (U) NEGATIVE <100 ng/mL [facility] TRAMADOL (U) NEGATIVE <100 ng/mL [facility] TRAMADOL COMMENTS [facility] Comment:See LDT Notes AMPHETAMINES PM NEGATIVE <500 ng/mL [facility] BARBITURATES PM (U) NEGATIVE <300 ng/mL [facility] BENZODIAZEPINES PM (U) NEGATIVE <100 ng/mL [facility] COCAINE METABOLITE PM (U) NEGATIVE <150 ng/mL [facility] MARIJUANA METABOLITE PM (U) NEGATIVE <20 ng/mL [facility] METHADONE PM (U) NEGATIVE <100 ng/mL [facility] OPIATES PM (U) NEGATIVE <100 ng/mL [facility] OXYCODONE PM (U) NEGATIVE <100 ng/mL [facility] CREATININE RANDOM (U) 36.4 > or = 20.0 mg/dL [facility] pH PM (U) 6.5 4.5 - 9.0 [facility] ALEENA KENNY OXIDANT NEGATIVE <200 mcg/mL [facility] ALEENA KENNY Note [facility] Comment: This drug testing is for medical treatment only. Analysis was performed as non-forensic testing and these results should be used only by healthcare providers to render diagnosis or treatment, or to monitor progress of medical conditions. LDT Notes: Confirmation tests were developed and their analytical performance characteristics have been determined by [facility]. It has not been cleared or approved by the FDA. This assay has been validated pursuant to the CLIA regulations and is used for clinical purposes. medMATCH(R) enables providers to identify if drug use is consistent or inconsistent with a corresponding prescribed medication(s) list. Healthcare Providers needing Interpretation assistance, please contact us at [phone] ( ) M-F, 8am to 10pm EST URINE SPECIMEN / Unknown 08/28/2022 1:50 PM CDT 08/29/2022 3:25 AM CDT Narrative Resulting Agency Comment Performing Organization Information: ?Site ID: ?Name: [facility] ?Address: [address] [place] [id number] ?Director: Anselmo Rseendez ?Site ID: [id number] ?Name: [facility] ?Address: [address] [place] [address] ?Director: Nicolle Roach MD us Jacquie Fair NP URINE ORDERABLES Final Re sult [employer] - REGINALD ORDERS [facility] [address] [place] [address], [employer] ALEENA KENNY [address] [facility] [place] [address] documented in this encounter Visit Diagnoses Diagnosis Encounter for PPD skin test reading- Primary Insomnia, unspecified type Immunity status testing Antibody response examination Positive MEKA (antinuclear antibody) Other and unspecified nonspecific immunological findings Hypermobile joints Other joint derangement, not elsewhere classified, unspecified site Arthralgia, unspecified joint documented in this encounter Administered Medications Administered Medications Medication Order MAR Action Action Date Dose Rate Site Protein Derivative (Purified) Intradermal Given 08/28/2022 15:45 CDT 0.1 mL RIGHT FO REARM documented in this encounter Additional Health Concerns Assessment Noted Time PHQ-9 Depression Total Score: 14 023 8:28 AM GRINDER GEAR documented as of this encounter Care Teams Gospel Singer Relationship Specialty Start Date End Date Jacquie Fair NP [address] [place] [address] PCP - General NURSE PRACTITIONER 06/20/21 documented as of this encounter
--- OUTSIDE RECORDS SUMMARY | 2024-02-27 09:33 | XMS_ITS | Encounter Summary ---
Author Organization [facility] Address [address] [place] [address]. [place] [address] [place] [address] Care Team Providers Care Bottom Polisher Name Role Phone Jacquie Fair NP Primary Care Provider [phone] [phone] Encounter Details Date Type Department Care Team (Latest Contact Info) Description 06/18/2022 Scan [facility] INFO SRVCS Scanned, Doc [...] on file Legal Sex Female 9:41 PM PUFF IRON OPERATOR Gender Identity Female 04/24/2021 2:22 PM PUFF IRON OPERATOR Sexual Orientation Choose not to disclose 2021 2:22 PM PUFF IRON OPERATOR documented as of this encounter Plan of Treatment Not on file documented as of this encounter Visit Diagnoses Not on filedocumented in this encounter Additional Health Concerns Assessment Noted Time PHQ-9 Depression Total Score: 14 023 8:28 AM PUFF IRON OPERATOR documented as of this encounter Care Teams Bottom Polisher Relationship Specialty Start Date End Date Jacquie Fair NP [address] [place] [address] PCP - General NURSE PRACTITIONER 06/20/21 documented as of this encounter
--- OUTSIDE RECORDS SUMMARY | 2024-02-27 09:33 | XMS_ITS | Encounter Summary ---
Author Organization [facility] Address [address] [place] [address]. [place] [address] [place] [address] Care Team Providers Care Multimedia Instructional Designer Name Role Phone Jacquie Fair NP Primary Care Provider [phone] [phone] Encounter Details Date Type Department Care Team (Latest Contact Info) Description 09/04/2022 Scan [facility] HEALTH INFO SRVCS Scanned, Doc [...] on file Legal Sex Female 9:41 PM CHARGE RN Gender Identity Female 04/24/2021 2:22 PM CHARGE RN Sexual Orientation Choose not to disclose 2021 2:22 PM CHARGE RN documented as of this encounter Plan of Treatment Not on file documented as of this encounter Visit Diagnoses Not on filedocumented in this encounter Additional Health Concerns Assessment Noted Time PHQ-9 Depression Total Score: 14 023 8:28 AM CHARGE RN documented as of this encounter Care Teams Multimedia Instructional Designer Relationship Specialty Start Date End Date Jacquie Fair NP [address] [place] [address] PCP - General NURSE PRACTITIONER 06/20/21 documented as of this encounter
--- OUTSIDE RECORDS SUMMARY | 2024-02-27 09:34 | XMS_ITS | Encounter Summary ---
Author Organization [facility] Address [address] [place] [address]. [place] [address] [place] [address] Care Team Providers Care Brand Mgr Name Role Phone Jacquie Fair NP Primary Care Provider [phone] [phone] Encounter Details Date Type Department Care Team (Late st Contact Info) Description 02/16/[address] [facility] Family Medicine - [place] [address] [facility] [address] [place] [id number] Jacquie Fair NP [address] [place] [address] Social History Tobacco Use Types Packs/Day Years Used Date Smoking Tobacco: Passive Smo ke Exposure - Never Smoker Cigarettes Smokeless Tobacco: Never Alcohol Use Standard Drinks/Week Comments Yes 0 (1 standard drink = 0.6 oz pure alcohol) social, less than 1 drink per week PHQ-2 Answer Date Recorded PHQ-2 Score - If the patient scores above 3, please move on to questions 3-9 0 08/16/2021 Comments No Sex and Gender Information Value Date Recorded Sex Assigned at Not on file Legal Sex Female 9:41 PM VIDEO COORDINATOR Gender Identity Female 04/24/2021 2:22 PM VIDEO COORDINATOR Sexual Orientation Choose not to disclose 2021 2:22 PM VIDEO COORDINATOR documented as of this encounter Progress Notes * Jacquie Fair NP - 02/16/2022 10:32 AM CST Pt brought son in today for illness and tested positive for influenza B. Pt's mother currently is well. Pt is interested in script for tamiflu d/t exposure. Script sent. O COORDINATOR documented in this encounter Plan of Treatment Not on file documented as of this encounter Visit Diagnoses Diagnosis Exposure to influenza- Primary Contact with or exposure to other viral diseases documented in this encounter Additional Health Concerns Assessment Noted Time PHQ-9 Depression Total Score: 0 02/29/20 21 9:14 AM VIDEO COORDINATOR documented as of this encounter Care Teams Brand Mgr Relationship Specialty Start Date End Date Jacquie Fair NP [address] [place] [address] PCP - General NURSE PRACTITIONER 06/20/21 documented as of this encounter
--- OUTSIDE RECORDS SUMMARY | 2024-02-27 09:34 | XMS_ITS | Encounter Summary ---
Author Organization [facility] Address [address] [place] [address]. [place] [address] [place] [address] Care Team Providers Care Tire Maintenance Technician Name Role Phone Jacquie Fair NP Primary Care Provider [phone] [phone] Encounter Details Date Type Department Care Team (Latest Contact Info) Description 04/27/2022 Travel Social History Tobacco Use Types Packs/Day [...] on file Legal Sex Female 9:41 PM SANE NURSE Gender Identity Female 04/24/2021 2:22 PM SANE NURSE Sexual Orientation Choose not to disclose 2021 2:22 PM SANE NURSE COVID-19 Exposure Response Date Recorded In the last 10 days, have yo u been in contact with someone who was confirmed or suspected to have Coronavirus/COVID-19? No / Unsure 04/27/2022 8:00 AM SANE NURSE documented as of this encounter Plan of Treatment Not on file documented as of this encounter Visit Diagnoses Not on filedocumented in this encounter Additional Health Concerns Assessment Noted Time PHQ-9 Depression Total Score: 14 023 8:28 AM SANE NURSE documented as of this encounter Care Teams Tire Maintenance Technician Relationship Specialty Start Date End Date Jacquie Fair NP [address] [place] [address] PCP - General NURSE PRACTITIONER 06/20/21 documented as of this encounter
--- OUTSIDE RECORDS SUMMARY | 2024-02-27 09:34 | XMS_ITS | Encounter Summary ---
Author Organization [facility] Address [address] [place] [address]. [place] [address] [place] [address] Care Team Providers Care Melt Down Furnace Operator Name Role Phone Jacquie Fair NP Primary Care Provider [phone] Encounter Details Date Type Department Care Team (Latest Contact Info) Description 08/16/2021 Travel Social History Tobacco Use Types Packs/Day [...] on file Legal Sex Female 9:[address] MANAGER Gender Identity Female 04/24/2021 2:[address] MANAGER Sexual Orientation Choose not to disclose 2021 2:[address] MANAGER COVID-19 Exposure Response Date Recorded In the last 10 days, have yo u been in contact with someone who was confirmed or suspected to have Coronavirus/COVID-19? No / Unsure 08/16/2021 12:09 PM CDT documented as of this encounter Plan of Treatment Not on file documented as of this encounter Visit Diagnoses Not on filedocumented in this encounter Additional Health Concerns Assessment Noted Time PHQ-9 Depression Total Score: 0 02/29/20 21 9:[address] MANAGER documented as of this encounter Care Teams Melt Down Furnace Operator Relationship Specialty Start Date End Date Jacquie Fair NP [address] [facility] [address] [place] [address] PCP - General NURSE PRACTITIONER 06/20/21 documented as of this encounter
--- OUTSIDE RECORDS SUMMARY | 2024-02-27 09:34 | XMS_ITS | Encounter Summary ---
Author Organization [facility] Address [address] [place] [address]. [place] [address] [place] [address] Care Team Providers Care Justice Court Judge Name Role Phone Jacquie Fair NP Primary Care Provider [phone] [phone] Reason for Visit * Reason Comments Rash Patient presents wit h c/o rash all over body from allergic reaction from laser treatment Depression C/o Cymbalta is no l onger helping with symptoms of ADD, lots of trouble with focus Encounter Details Date Type Department Care Team (Late st Contact Info) Description 04/13/2022 8:20 AM HVAC SALES REPRESENTATIVE Office Visit [facility] - [place] [address] [facility] [address] [place] [address] [phone] Jacquie Fair NP [address] [place], [place] [address] Candace Harding NP Rash (Patient presents with c/o rash all over body from allergic reaction from laser treatment); Depression (C/o Cymbalta is no longer helping with symptoms of ADD, lots of trouble with focus) Social History Tobacco Use Types Packs/Day Years Used Date Smoking Tobacco: Never Cigarettes Passive Smoke Exposure: Yes Smokeless Tobacco: Never Tobacco Cessation:Counseling Given: No Alcohol Use Standard Drinks/Week Comments Yes 0 (1 standard drink = 0.6 oz pure alcohol) social, less than 1 drink per week PHQ-2 Answer Date Recorded Patient Health Questionnaire-2 Score 2 04/13/2022 Comments No Sex and Gender Information Value Date Recorded Sex Assigned at Not on file Legal Sex Female 9:41 PM HVAC SALES REPRESENTATIVE Gender Identity Female 04/24/2021 2:22 PM HVAC SALES REPRESENTATIVE Sexual Orientation Choose not to disclose 2021 2:22 PM HVAC SALES REPRESENTATIVE COVID-19 Exposure Response Date Recorded In the last 10 days, have yo u been in contact with someone who was confirmed or suspected to have Coronavirus/COVID-19? No / Unsure 04/13/2022 8:05 AM HVAC SALES REPRESENTATIVE documented as of this encounter Last Filed Vital Signs Vital Sign Reading Time Taken Comments Blood Pressure 89/63 04/13/2022 8:23 AM HVAC SALES REPRESENTATIVE Pulse 106 04/13/2022 8:23 AM HVAC SALES REPRESENTATIVE Temperature 37.1 ??C (98.8 ??F) 04/13/2022 8:23 AM CS T Respiratory Rate 18 04/13/2022 8:23 AM HVAC SALES REPRESENTATIVE Oxygen Saturation 100% 04/13/2022 8:23 AM HVAC SALES REPRESENTATIVE Inhaled Oxygen Concentration - - Weight 42.8 kg (94 lb 6.4 oz) 04/13/2022 8:23 AM HVAC SALES REPRESENTATIVE Height 157.5 cm (5' 2 ) 04/13/2022 8:23 AM HVAC SALES REPRESENTATIVE Body Mass Index 17.27 04/13/2022 8:23 AM HVAC SALES REPRESENTATIVE documented in this encounter Patient Instructions * Attachments The following attachments cannot be sent through Care Everywhere. * Insomnia Discharge Instructions (Mongolian) documented in this encounter Progress Notes * Candace Harding NP - 04/13/2022 8:20 AM CST OFFICE ACUTE VISIT Encounter Date: 04/13/2022 Chief Complaint: 36-year-old female presents for Rash (Patient presents with c/o rash all over body from allergic reaction from laser treatment) and Depression (C/o Cymbalta is no longer helping with symptoms of ADD,lots of trouble with focus) . HPI: Patient presents today for rash, insomnia and ADD. Rash Patient reports she has had a rash that bilateral legs and arms For the past month following laser hair removal. She has taken a Medrol Dosepak and is taking Benadryl every night with no improvement.She has used steroid creams with no improvement as well. The rash is itchy and not improving. Insomnia Patient reports she has chronic insomnia she has difficulty falling asleep and staying asleep. She reports she wakes up every 20 minutes and has trouble falling back asleep. She reports she takes 4 Benadryl at night and sometimes Unisom. This has not been helpful. She really ports an increase in fatigue over the past couple weeks. She is wanting to start something else to help her sleep at night. ADD Patient has been taking Cymbalta for ADD and fibromyalgia. She reports that increase in difficulties focusing especially at work. She does not feel like the Cymbalta is helping her anymore. She is wondering if her chronic fatigue is contributing to her ADD symptoms. Patient is interesting in trialing something else for her ADD because her focus issues are starting to affect her work. Review of Systems Skin: Positive for itching and rash. Psychiatric/Behavioral: The patient has insomnia. Attention issues All other systems reviewed and are negative. Past Medical History: Diagnosis Date ??? ADHD (attention deficit hyperactivity disorder) ??? Back spasm 2009 ??? Blood transfusion without reported diagnosis 12/22/2020 due to miscarriage ??? C. difficile diarrhea ??? Depression seasonal ??? Fibromyalgia ??? 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 Head injury 12/2020 fell and hit head ??? Hypotension ??? Miscarriage 12/21/2020 ??? Neck muscle spasm 2009 ??? POTS (postural orthostatic tachycardia syndrome) Current Outpatient Medications Medication Sig Dispense Refill ??? albuterol sulfate HFA 108 (90 Base) MCG/ACT inhaler Inhale 2 puffs into the lungs every 4 (four) hours as needed for Wheezing or Shortness of breath. 8.5 g 3 ??? DULoxetine (CYMBALTA) 60 MG capsule TAKE 1 CAPSULE(60 MG) BY MOUTH DAILY 90 capsule 0 ??? triamcinolone (KENALOG) 0.1 % cream Apply topically 2 (two) times daily. ??? Cyanocobalamin (VITAMIN B-12 OR) (Patient not taking: Reported on 04/13/2022) ??? ferrous sulfate, 65 mg elemental, 325 (65 FE) MG tablet (Patient not taking: Reported on 04/13/2022) ??? fluticasone-salmeterol (ADVAIR DISKUS) 250-50 MCG/ACT inhaler Inhale 1 puff into the lungs 2 (two) times daily. (Patient not taking: Reported on 04/13/2022) 14 each 0 No current facility-administered medications for this visit. Allergies Allergen Reactions ??? Cephalosporins Diarrhea and Vomiting CDIF ??? Codeine Unknown and Shakiness ??? Medrol [Methylprednisolone] Vomiting Vomiting, diarrhea ??? Latex Rash Objective: Vitals: 04/13/22 0823 BP: 89/63 Pulse: (!) 106 Resp: 18 Temp: 98.8 ??F (37.1 ??C) SpO2: 100% Physical Exam Vitals and nursing note reviewed. Constitutional: Appearance: Normal appearance. HENT: Head: Normocephalic and atraumatic. Cardiovascular: Rate and Rhythm: Normal rate and regular rhythm. Pulmonary: Effort: Pulmonary effort is normal. Breath sounds: Normal breath sounds. Musculoskeletal: General: Normal range of motion. Cervical back: Normal range of motion. Skin: General: Skin is warm and dry. Findings: Rash (bilateral legs and arms, raised erythematous plaques) present. Neurological: Mental Status: She is alert and oriented to person, place, and time. Psychiatric: Mood and Affect: Mood normal. Behavior: Behavior normal. Thought Content: Thought content normal. Judgment: Judgment normal. Assessment/Plan 1. Rash Patient not wanting to take another Medrol Dosepak or prednisone orally related to side effects. Kenalog injection given in office for rash. Patient to start Zyrtec once daily and Pepcid twice daily.Patient to follow-up PCP if no improvement in rash. - cetirizine (ZYRTEC) 10 MG tablet; Take 1 tablet (10 mg total) by mouth daily. Dispense: 90 tablet; Refill: 1 - triamcinolone acetonide (KENALOG-40) injection 40 mg 2. Primary insomnia Patient with a long history of insomnia and has used Ambien in the past with success. Patient to stop taking Benadryl at night and trial Ambien. Patient to follow-up with primary in 2 weeks. - zolpidem (AMBIEN) 5 MG tablet; Take 1 tablet (5 mg total) by mouth nightly as needed for Sleep. Dispense: 30 tablet; Refill: 0 3. Nausea Zofran as needed for nausea related to side effects of medications. - ondansetron (ZOFRAN-ODT) 4 MG disintegrating tablet; Take 1 tablet (4 mg total) by mouth every 8 (eight) hours as needed for Nausea. Dispense: 20 tablet; Refill: 0 4. Intractable migraine without aura and without status migrainosus Patient with recent increase in migraine headaches. She has taken triptans in the past and is unable to tolerate them. Beta-blockers contraindicated related to low resting blood pressure. Trial Ubrelvy for migraine headache. Patient follow-up PCP if migraine persists or no improvement with Ubrelvy. - ubrogepant (UBRELVY) 100 MG tablet; Take 1 tablet (100 mg total) by mouth once as needed for Migraine. May repeat dose in 2 hours if symptoms persist. Max of 2 tablets (200 mg) in 24 hours Dispense: 10 tablet; Refill: 0 Candace Harding, OVIDIO, CONTOUR GRINDER, MOLECULAR MODELER Cosigned by Stan Lam MD at 04/13/2022 1:21 PM HVAC SALES REPRESENTATIVE SALES REPRESENTATIVE SALES REPRESENTATIVE documented in this encounter Plan of Treatment Not on file documented as of this encounter Visit Diagnoses Diagnosis Rash- Primary Rash and other nonspecific skin eruption Primary insomnia Persistent disorder of initiating or maintaining sleep Nausea Nausea alone Intractable migraine without aura and without status migrainosus Migraine without aura, with intractable migraine, so stated, without mention of status migrainosus documented in this encounter Administered Medications Inactive Administered Medications - up to 3 most recent administrations Medication Order MAR Action Action Date Dose Rate Site triamcinolone acetonide (KENALOG-40) injection 40 mg 40 mg, Intramuscular, Once, 1 dose, On Sat04/13/22 at 0915, Fredke WellIndications:Rash Given 04/13/2022 9:01 AM HVAC SALES REPRESENTATIVE 40 mg Right Dorsal Gluteal documented in this encounter Additional Health Concerns Assessment Noted Time PHQ-9 Depression Total Score: 14 023 8:28 AM HVAC SALES REPRESENTATIVE documented as of this encounter Care Teams Justice Court Judge Relationship Specialty Start Date End Date Jacquie Fair NP [address] [place] [address] PCP - General NURSE PRACTITIONER 06/20/21 documented as of this encounter
--- OUTSIDE RECORDS SUMMARY | 2024-02-27 09:34 | XMS_ITS | Encounter Summary ---
Author Organization [facility] Address [address] [place] [address]. [place] [address] [place] [address] Care Team Providers Care Kettle Cook Name Role Phone Jacquie Fair NP Primary Care Provider [phone] [phone] Encounter Details Date Type Department Care Team (Latest Contact Info) Description 12/05/2021 Scan [facility] INFO SRVCS Scanned, Documents Social History Tobacco Use Types Packs/Day Years [...] on file Legal Sex Female 9:41 PM MIGRATORY WORKER Gender Identity Female 04/24/2021 2:22 PM MIGRATORY WORKER Sexual Orientation Choose not to disclose 2021 2:22 PM MIGRATORY WORKER COVID-19 Exposure Response Date Recorded In the last 10 days, have yo u been in contact with someone who was confirmed or suspected to have Coronavirus/COVID-19? No / Unsure 12/12/2021 11:06 AM CDT documented as of this encounter Plan of Treatment Not on file documented as of this encounter Visit Diagnoses Not on filedocumented in this encounter Additional Health Concerns Infection Onset Date Last Indicated Resolved Time COVID-19 Rule Out 12/12/2021 12/12/2021 12/12/2021 12:16 PM CDT COVID-19 Rule Out 12/12/2021 12/12/2021 12/13/2021 1:56 PM CDT Assessment Noted Time PHQ-9 Depression Total Score: 0 02/29/20 21 9:14 AM MIGRATORY WORKER documented as of this encounter Care Teams Kettle Cook Relationship Specialty Start Date End Date Jacquie Fair NP [address] [place] [address] PCP - General NURSE PRACTITIONER 06/20/21 documented as of this encounter
--- OUTSIDE RECORDS SUMMARY | 2024-02-27 09:34 | XMS_ITS | Encounter Summary ---
Author Organization [facility] Address [address] [place] [address]. [place] [address] [place] [address] Care Team Providers Care Ticket Seller Name Role Phone Jacquie Fair NP Primary Care Provider [phone] [phone] Encounter Details Date Type Department Care Team (Latest Contact Info) Description 02/28/2022 Scan [facility] INFO SRVCS Scanned, Doc [...] file Legal Sex Female 9:41 PM RESIDENTIAL CONSTRUCTION INSTRUCTOR Gender Identity Female 04/24/2021 2:22 PM RESIDENTIAL CONSTRUCTION INSTRUCTOR Sexual Orientation Choose not to disclose 2021 2:22 PM RESIDENTIAL CONSTRUCTION INSTRUCTOR documented as of this encounter Plan of Treatment Not on file documented as of this encounter Visit Diagnoses Not on filedocumented in this encounter Additional Health Concerns Assessment Noted Time PHQ-9 Depression Total Score: 0 02/29/20 9:14 AM RESIDENTIAL CONSTRUCTION INSTRUCTOR documented as of this encounter Care Teams Ticket Seller Relationship Specialty Start Date End Date Jacquie Fair, TRICIA [address] [place] [address] PCP - General NURSE PRACTITIONER 06/20/21 documented as of this encounter
--- OUTSIDE RECORDS SUMMARY | 2024-02-27 09:34 | XMS_ITS | Encounter Summary ---
Author Organization [facility] Address [address] [place] [address]. [place] [address] [place] [address] Care Team Providers Care Nut Roaster Helper Name Role Phone Jacquie Fair NP Primary Care Provider [phone] [phone] Reason for Visit * Reason Onset Date Comments Reschedule 11/03/2021 Encounter Details Date Type Department Care Team (Late st Contact Info) Description 11/03/2021 Telephone [facility] Medical [facility] - [address] [place] [id number] Garret John MD [address] [facility] [address] [place] [address] Reschedule Social History Tobacco Use Types Packs/Day Years [...] on file Legal Sex Female 9:41 PM BOOK SORTER Gender Identity Female 04/24/2021 2:22 PM BOOK SORTER Sexual Orientation Choose not to disclose 2021 2:22 PM BOOK SORTER COVID-19 Exposure Response Date Recorded In the last 10 days, have yo u been in contact with someone who was confirmed or suspected to have Coronavirus/COVID-19? No / Unsure 10/17/2021 7:57 AM CDT documented as of this encounter Progress Notes * Margarita Carlos - 11/03/2021 3:23 PM CDT Left VM to reschedule appt Dr John out of office on date scheduled documented in this encounter Plan of Treatment Not on file documented as of this encounter Visit Diagnoses Not on filedocumented in this encounter Additional Health Concerns Assessment Noted Time PHQ-9 Depression Total Score: 0 02/29/20 21 9:14 AM BOOK SORTER documented as of this encounter Care Teams Nut Roaster Helper Relationship Specialty Start Date End Date Jacquie Fair NP [address] [place] [address] PCP - General NURSE PRACTITIONER 06/20/21 documented as of this encounter
--- OUTSIDE RECORDS SUMMARY | 2024-02-27 09:34 | XMS_ITS | Encounter Summary ---
Author Organization [facility] Address [address] [place] [address]. [place] [address] [place] [address] Care Team Providers Care Wireless Technician Name Role Phone Jacquie Fair NP Primary Care Provider [phone] [phone] Encounter Details Date Type Department Care Team (Late st Contact Info) Description 02/28/2022 Orders Only [facility] [address] [place] [address] Josh Akhtar, DO [address] [facility] [address] [place] [phone] Social History Tobacco Use Types Packs/Day Years [...] on file Legal Sex Female 9:41 PM HELP DESK SUPPORT SPECIALIST Gender Identity Female 04/24/2021 2:22 PM HELP DESK SUPPORT SPECIALIST Sexual Orientation Choose not to disclose 2021 2:22 PM HELP DESK SUPPORT SPECIALIST documented as of this encounter Plan of Treatment Not on file documented as of this encounter Results * (ABNORMAL) IRON SAT PANEL (IRON,IBC,%SAT) (02/28/2022 9:25 AM HELP DESK SUPPORT SPECIALIST) IRON 39(L) 50 - 170 MCG/DL 02/28/2022 7:12 PM HELP DESK SUPPORT SPECIALIST [facility] IRON BINDING CAPACITY 230(L) 250 - 450 MCG/DL 02/28/2022 7:12 PM [facility] IRON SATURATION 17(L) 20 - 55 % 7:12 PM HELP DESK SUPPORT SPECIALIST [facility] 02/28/2022 9:25 AM HELP DESK SUPPORT SPECIALIST us Josh Akhtar DO LABORATORY Final Result [facility] [address] [place] [address], [place] [phone] * FERRITIN (02/28/2022 9:25 AM HELP DESK SUPPORT SPECIALIST) FERRITIN 329.0 8.0 - 388.0 NG/ML 02/28/2022 7:12 PM [facility] 02/28/2022 9:25 AM HELP DESK SUPPORT SPECIALIST us Josh Akhtar DO LABORATORY Final Result Performing Organization Address City/[facility]/ZIP Co de Phone Number [facility] [address] [place] [address], [place] [phone] * (ABNORMAL) COMPREHENSIVE METABOLIC PANEL (02/28/2022 9:25 AM HELP DESK SUPPORT SPECIALIST) GLUCOSE 47(L) 70 - 99 MG/DL 02/28/2022 11:05 AM [facility] BUN 15 7 - 18 MG/DL 02/28/2022 11:05 AM [facility] CREATININE S/P/B 0.74 0.55 - 1.02 MG/DL 02/28/2022 11:05 AM [facility] SODIUM S/P/B 142 136 - 145 MMOL/L 02/28/2022 11:05 AM [facility] POTASSIUM S/P/B 3.5 3.5 - 5.1 MMOL/L 02/28/2022 11:05 AM [facility] CHLORIDE S/P/B 106 100 - 108 MMOL/L 02/28/2022 11:05 AM [facility] CO2 26.8 21 - 32 MMOL/L 02/28/2022 11:05 AM [facility] CALCIUM S/P/B 8.4(L) 8.5 - 10.1 MG/DL 02/28/2022 11:05 AM [facility] BILIRUBIN TOTAL S/P/B 0.3 0.2 - 1.2 MG/DL 02/28/2022 11:05 AM [facility] Comment: THIS ASSAY IS NOT RECOMMENDED FOR PATIENTS UNDERGOING TREATMENT WITH ELTROMBOPAG DUE TO THE POTENTIAL FOR FALSELY ELEVATED RESULTS. TOTAL PROTEIN S/P/B 6.5 6.4 - 8.2 G/DL 02/28/2022 11:05 AM [facility] ALBUMIN S/P/B 3.7 3.4 - 5.0 G/DL 02/28/2022 11:05 AM [facility] AST 40(H) 15 - 37 U/L 02/28/2022 11:05 AM [facility] ALT 24 14 - 55 U/L 02/28/2022 11:05 AM [facility] ALKALINE PHOSPHATASE S/P/B 43(L) 50 - 136 U/L 02/28/2022 11:05 AM [facility] ANION GAP 9.2 5 - 15 MMOL/L 02/28/2022 11:05 AM [facility] BUN CREATININE RATIO 20.3 6 - 26 02/28/2022 11:05 AM [facility] A/G RATIO 1.3 1.0 - 2.0 RATIO 02/28/2022 11:05 AM [facility] GFR ESTIMATE >90 >90 ML/MIN/1.7 3 M2 02/28/2022 11:05 AM [facility] Comment: NOTE: eGFR is not calculated for patients <18 years of age. This is an estimated GFR calculation using the new CKD EPI creatinine equation without race and so does not require a correction factor for race. This estimated GFR should not be used for calculating drug doses. 02/28/2022 9:25 AM HELP DESK SUPPORT SPECIALIST us Josh Akhtar DO LABORATORY Final Result [facility] [address] [place] [address], [place] [phone] * (ABNORMAL) CBC W/DIFF AUTOMATED (02/28/2022 9:25 AM HELP DESK SUPPORT SPECIALIST) WBC 5.91 4.50 - 11.00 x10'3/uL 02/28/2022 10:57 AM [facility] RBC 4.25 4.20 - 5.40 x10'6/uL 02/28/2022 10:57 AM [facility] HGB 12.3 12.0 - 16.0 G/DL 02/28/2022 10:57 AM [facility] HCT 38.3 38.0 - 48.0 % 02/28/2022 10:57 AM [facility] MCV 90.1 81.0 - 99.0 FL 02/28/2022 10:57 AM [facility] MCH 28.9 27.0 - 31.0 PG 02/28/2022 10:57 AM [facility] MCHC 32.1 32.0 - 36.0 G/DL 02/28/2022 10:57 AM [facility] RDW 14.8(H) 11.5 - 14.5 % 02/28/2022 10:57 AM [facility] PLT 258 130 - 400 x10'3/uL 02/28/2022 10:57 AM [facility] MPV 10.2 9.3 - 12.2 FL 02/28/2022 10:57 AM [facility] CBC COMMENT AUTOMATED RBC MORPHOLOGY AND PLATELET EVALUATION NORMAL 02/28/2022 10:57 AM [facility] NEUTROPHILS % 71.0 % 02/28/2022 10:57 AM [facility] LYMPHOCYTES % 13.5 % 02/28/2022 10:57 AM [facility] MONOCYTES % 9.8 % 02/28/2022 10:57 AM [facility] EOSINOPHILS 4.4 % 02/28/2022 10:57 AM [facility] BASOPHILS 1.0 % 02/28/2022 10:57 AM [facility] IMMATURE GRANS % 0.3 % 02/29/20 10:57 AM [facility] NRBC 0.0 % 02/28/2022 10:57 AM [facility] ABS. NEUTROPHILS TOTAL 4.19 1.80 - 7.70 x10'3/uL 02/28/2022 10:57 AM [facility] ABS. LYMPHOCYTES 0.80(L) 1.00 - 4.80 x10'3/uL 02/28/2022 10:57 AM [facility] ABS. MONOCYTES 0.58 0.24 - 0.86 x10'3/uL 02/28/2022 10:57 AM [facility] ABS. EOSINOPHILS 0.26 0.04 - 0.36 x10'3/uL 02/28/2022 10:57 AM HELP DESK SUPPORT SPECIALIST [facility] ABS. BASOPHILS 0.06 0.01 - 0.08 x10'3/uL 02/28/2022 10:57 AM HELP DESK SUPPORT SPECIALIST [facility] ABS. IMMATURE GRANULOCYTES 0.02 0.00 - 0.49 x10'3/uL 02/28/2022 10:57 AM HELP DESK SUPPORT SPECIALIST [facility] ABS. NUCLEATED RBC'S 0.00 0.00 - 0.01 x10'3/uL 02/28/2022 10:57 AM HELP DESK SUPPORT SPECIALIST [facility] 02/28/2022 9:25 AM HELP DESK SUPPORT SPECIALIST us Josh Akhtar DO LABORATORY Final Result [facility] [address] [place] [address], documented in this encounter Visit Diagnoses Diagnosis Iron deficiency anemia, unspecified iron deficiency anemia type- Primary documented in this encounter Additional Health Concerns Assessment Noted Time PHQ-9 Depression Total Score: 0 02/29/20 21 9:14 AM HELP DESK SUPPORT SPECIALIST documented as of this encounter Care Teams Wireless Technician Relationship Specialty Start Date End Date Jacquie Fair NP [address] [place] [address] PCP - General NURSE PRACTITIONER 06/20/21 documented as of this encounter
--- OUTSIDE RECORDS SUMMARY | 2024-02-27 09:34 | XMS_ITS | Encounter Summary ---
Author Organization [facility] Address [address] [place] [address] [address] [place] [address] Care Team Providers Care Timber Sizer Operator Name Role Phone Jacquie Fair NP Primary Care Provider [phone] [phone] Encounter Details Date Type Department Care Team (Latest Contact Info) Description 08/02/2021 Scan [facility] HEALTH INFO SRVCS Scanned, Documents [...] on file Legal Sex Female 9:41 PM NUMERICAL CONTROL LATHE OPERATOR Gender Identity Female 04/24/2021 2:22 PM NUMERICAL CONTROL LATHE OPERATOR Sexual Orientation Choose not to disclose 2021 2:22 PM NUMERICAL CONTROL LATHE OPERATOR COVID-19 Exposure Response Date Recorded In the last 10 days, have yo u been in contact with someone who was confirmed or suspected to have Coronavirus/COVID-19? No / Unsure 08/13/2021 11:07 AM CDT documented as of this encounter Plan of Treatment Not on file documented as of this encounter Visit Diagnoses Not on filedocumented in this encounter Additional Health Concerns Assessment Noted Time PHQ-9 Depression Total Score: 0 02/29/20 21 9:14 AM NUMERICAL CONTROL LATHE OPERATOR documented as of this encounter Care Teams Timber Sizer Operator Relationship Specialty Start Date End Date Jacquie Fair, TRICIA [address] [place] [address] PCP - General NURSE PRACTITIONER 06/20/21 documented as of this encounter
--- OUTSIDE RECORDS SUMMARY | 2024-02-27 09:34 | XMS_ITS | Encounter Summary ---
Author Organization [facility] Address [address] [place] [address]. [place] [address] [place] [address] Care Team Providers Care Firer Marine Name Role Phone Jacquie Fair NP Primary Care Provider [phone] Reason for Referral * Consultation (Urgent) - Closed Specialty Diagnoses / Procedures Referred By Nir small Referred To Contact DERMATOLOGY Diagnoses Rash and nonspecific skin eruption Procedures OFFICE/OUTPT VISIT,NEW,LEVL III OFFICE/OUTPT VISIT,NEW,LEVL IV OFFICE/OUTPT VISIT,NEW,LEVL V OFFICE/OUTPT VISIT,EST,LEVL III OFFICE/OUTPT VISIT,EST,LEVL IV OFFICE/OUTPT VISIT,EST,LEVL V Jacquie Fair NP [address] [place] [address] Phone: tel: fax: [facility] [address] [place] [id number] Phone: tel: fax: Referral ID Status Reason Start Date Expiration Date V isits Requested Visits Authorized [id number] Closed Specialty Services 04/27/2022 04/27/2023 99 99 'S ADVISER Reason for Visit * Reason Comments Sleep Problem Patient presents for a 2 week follow up insomnia and rash no better Encounter Details Date Type Department Care Team (Late st Contact Info) Description 04/27/2022 8:00 AM BOY'S ADVISER Office Visit [facility] Family [facility] [address] [facility] [address] [place] [address] Jacquie Fair NP [address] [place] [address] Sleep Problem (Patient presents for a 2 week follow up insomnia and rash no better) Social History Tobacco Use Types Packs/Day Years [...] on file Legal Sex Female 9:41 PM BOY'S ADVISER Gender Identity Female 04/24/2021 2:22 PM BOY'S ADVISER Sexual Orientation Choose not to disclose 2021 2:22 PM BOY'S ADVISER COVID-19 Exposure Response Date Recorded In the last 10 days, have yo u been in contact with someone who was confirmed or suspected to have Coronavirus/COVID-19? No / Unsure 04/27/2022 8:00 AM BOY'S ADVISER documented as of this encounter Last Filed Vital Signs Vital Sign Reading Time Taken Comments Blood Pressure 96/65 04/27/2022 8:09 AM BOY'S ADVISER Pulse 87 04/27/2022 8:09 AM BOY'S ADVISER Temperature 36.9 ??C (98.5 ??F) 04/27/2022 8:09 AM CS T Respiratory Rate 18 04/27/2022 8:09 AM BOY'S ADVISER Oxygen Saturation 100% 04/27/2022 8:09 AM BOY'S ADVISER Inhaled Oxygen Concentration - - Weight 42.6 kg (94 lb) 04/27/2022 8:09 AM BOY'S ADVISER Height - - Body Mass Index 17.19 04/13/2022 8:23 AM BOY'S ADVISER documented in this encounter Progress Notes * Jacquie Fair NP - 04/27/2022 8:00 AM CST Reason for Visit: Sleep Problem (Patient presents for a 2 week follow up insomnia and rash no better) History of Present Illness: Shagufta is a 36- year old female who presents to office for 2 week follow up on her rash and insomnia Rash- pt developed a generalized rash to her body post lazer hair removal. Rash has been present for six weeks.Has been on antihistamines, oral steroid, IM steroid (steroids cause side effects) Pepcid without relief. Is interested in a referral to derm for further recommendations. Insomnia- Recently started on Ambien 5 mg. Is tolerating well. Had taken in the past and tolerated.Goes to bed around 9 but has been waking up around 1am and will take about an hour to go back to sleep. She is going to try and figure out what could be causing her to wake up around 1am. Pt denies waking up to urinate or hungry. Denies any caffeine prior to bedtime. Pt also tells me she has been taking Cymbalta for years to help her ADD and chronic pain from fibromyalgia but she does not feel it even helps. She was interested in lowering her dose and to eventually to titrate off. Medications: Current Outpatient Medications: ??? albuterol sulfate HFA 108 (90 Base) MCG/ACT inhaler, Inhale 2 puffs into the lungs every 4 (four) hours as needed for Wheezing or Shortness of breath., Disp: 8.5 g, Rfl: 3 ??? cetirizine (ZYRTEC) 10 MG tablet, Take 1 tablet (10 mg total) by mouth daily., Disp: 90 tablet,Rfl: 1 ??? DULoxetine (CYMBALTA) 30 MG capsule, Take 1 capsule (30 mg total) by mouth daily., Disp: 90 capsule, Rfl: 0 ??? famotidine (PEPCID) 20 MG tablet, TAKE 1 TABLET(20 MG) BY MOUTH TWICE DAILY, Disp: 180 tablet, Rfl: 0 ??? ondansetron (ZOFRAN-ODT) 4 MG disintegrating tablet, Take 1 tablet (4 mg total) by mouth every 8 (eight) hours as needed for Nausea., Disp: 20 tablet, Rfl: 0 ??? tranexamic acid (LYSTEDA) 650 MG tablet, , Disp: , Rfl: ??? triamcinolone (KENALOG) 0.1 % cream, Apply topically 2 (two) times daily., Disp: , Rfl: ??? zolpidem (AMBIEN) 5 MG tablet, Take 1 tablet (5 mg total) by mouth nightly as needed for Sleep., Disp: 30 tablet, Rfl: 0 ??? ubrogepant (UBRELVY) 100 MG tablet, Take 1 tablet (100 mg total) by mouth once as needed for Migraine. May repeat dose in 2 hours if symptoms persist. Max of 2 tablets (200 mg) in 24 hours (Patient not taking: Reported on 04/27/2022), Disp: 10 tablet, Rfl: 0 Allergies Allergen Reactions ??? Cephalosporins Diarrhea and Vomiting CDIF ??? Codeine Unknown and Shakiness ??? Medrol [Methylprednisolone] Vomiting Vomiting, diarrhea ??? Latex Rash Past Medical History: Diagnosis Date ??? ADHD [...] 2009 ??? POTS (postural orthostatic tachycardia syndrome) OB History No obstetric history on file. Past Surgical History: Procedure Laterality Date ??? SECTION 2007 ??? COLONOSCOPY 2008 ? ? D&C AFTER DELIVERY miscarriage ??? EXPLORATORY LAPAROSCOPY 2006 X2 2007 and 2009 ??? HC TUBING LEEP ??? REMOVAL OF FALLOPIAN TUBE 2008 ??? REPAIR OF NASAL SEPTUM ??? TONSILLECTOMY Social History Tobacco Use ??? Smoking status: Some Days Packs/day: 0.00 Years: 0.50 Pack years: 0.00 Types: Cigarettes Passive exposure: Yes ??? Smokeless tobacco: Never Vaping Use ??? Vaping Use: Never used Substance Use Topics ??? Alcohol use: Yes Comment: social, less than 1 drink per week ??? Drug use: Never No family history on file. ROS: Review of Systems Musculoskeletal: Positive for joint pain (chronic). Skin: Positive for itching and rash (generalized to body ). Psychiatric/Behavioral: Negative for depression. The patient has insomnia. The patient is not nervous/anxious. Physical Exam Constitutional: Appearance: Normal appearance. Cardiovascular: Rate and Rhythm: Normal rate and regular rhythm. Pulses: Normal pulses. Heart sounds: Normal heart sounds. Skin: General: Skin is warm and dry. Findings: Rash (Scattered erythematous plaques varying in size and shape noted all over body, mild scaling noted. ) present. Neurological: General: No focal deficit present. Mental Status: She is alert and oriented to person, place, and time. Psychiatric: Mood and Affect: Mood normal. Behavior: Behavior normal. Thought Content: Thought content normal. Judgment: Judgment normal. Filed Vitals: 04/27/22 0809 BP: 96/65 Pulse: 87 Resp: 18 Temp: 98.5 ??F (36.9 ??C) TempSrc: Temporal SpO2: 100% Weight: 42.6 kg (94 lb) Assessment/Recommendations/Plan 1. Insomnia, unspecified type Pt is tolerating Ambien 5mg well without side effects. Is falling asleep easier but has bene wakingup around 1am and will take about an hour to go back to sleep. Pt does not want to increase her medication as this time but will see if she can figure out why she is waking up once early in the morning. We discussed ways to help her stay asleep. 2. Rash and nonspecific skin eruption Rash has been present for 6 weeks that has not improved oral, topical steroid as well as antihistamine and Pepcid. Patient would like a referral to dermatology for further evaluation. - Ambulatory referral to Dermatology 3. Fibromyalgia Duloxetine dose decreased from 60 mg to 30 mg per patient request and we will continue to titrate down as tolerable. - DULoxetine (CYMBALTA) 30 MG capsule; Take 1 capsule (30 mg total) by mouth daily. Dispense: 90 capsule; Refill: 0 Follow up: near future for annual physical examination Health Maintenance Topic Date Due ??? Hepatitis C Never done ??? COVID-19 Vaccine (3 - Booster for Moderna series) 07/14/2020 ??? Influenza Adult (1) 12/09/2021 ??? Annual Physical 02/28/2022 ??? Cervical Cancer Screening with HPV 11/30/2024 ??? DTaP, Tdap and Td Vaccines (2 - Td or Tdap) 07/09/2028 ??? Meningococcal Vaccine Aged Out ??? Pneumococcal Vaccine: Pediatrics (0 to 5 Years) and At-Risk Patients (6 to 64 Years) Aged Out JACQUIE FAIR NP 04/27/2022 9:12 AM 'S ADVISER documented in this encounter Plan of Treatment Scheduled Referrals Name Type Priority Associated Diagnoses Orde r Schedule Ambulatory referral to Dermatology Referral Routine Rash and nonspecific skin eruption Ordered: 04/27/2022 documented as of this encounter Visit Diagnoses Diagnosis Insomnia, unspecified type Rash and nonspecific skin eruption Rash and other nonspecific skin eruption Fibromyalgia Mylagia and myositis, unspecified documented in this encounter Additional Health Concerns Assessment Noted Time PHQ-9 Depression Total Score: 14 023 8:28 AM BOY'S ADVISER documented as of this encounter Care Teams Firer Marine Relationship Specialty Start Date End Date Jacquie Fair NP [address] [place] [address] PCP - General NURSE PRACTITIONER 06/20/21 documented as of this encounter
--- OUTSIDE RECORDS SUMMARY | 2024-02-27 09:34 | XMS_ITS | Encounter Summary ---
Author Organization [facility] Address [address] [place] [address]. [place] [address] [place] [address] Care Team Providers Care Spanish Tutor Name Role Phone Jacquie Fair NP Primary Care Provider [phone] Encounter Details Date Type Department Care Team (Latest Contact Info) Description 09/12/2021 Scan [facility] Scanned, Documents [...] on file Legal Sex Female 9:41 PM RUFFLING MACHINE OPERATOR Gender Identity Female 04/24/2021 2:22 PM RUFFLING MACHINE OPERATOR Sexual Orientation Choose not to disclose 2021 2:22 PM RUFFLING MACHINE OPERATOR COVID-19 Exposure Response Date Recorded In [...] Total Score: 0 02/29/20 21 9:14 AM RUFFLING MACHINE OPERATOR documented as of this encounter Care Teams Spanish Tutor Relationship Specialty Start Date End Date Jacquie Fair, TRICIA [address] [place] [address] PCP - General NURSE PRACTITIONER 06/20/21 documented as of this encounter
--- OUTSIDE RECORDS SUMMARY | 2024-02-27 09:34 | XMS_ITS | Encounter Summary ---
Author Organization [facility] Address [address] [place] [address]. [place] [address] [place] [address] Care Team Providers Care Vest Busheler Name Role Phone Jacquie Fair NP Primary Care Provider [phone] Reason for Visit * Reason Comments Cough Cough, headache, ear s rings, sweaty, sinus drainage x 10 days Encounter Details Date Type Department Care Team (Late st Contact Info) Description 10/04/2021 1:40 PM CDT Office Visit [facility] Family Medicine - [place] [address] [facility] [address] [place] [phone] Jacquie Fair, PUBLIC SAFETY DIRECTOR [address] [place] [id number] Cough (Cough, headache, ears rings, sweaty, sinus drainage x 10 days) Social History Tobacco Use Types Packs/Day Years [...] on file Legal Sex Female 9:41 PM SEWING PATTERN LAYOUT TECHNICIAN Gender Identity Female 04/24/2021 2:22 PM SEWING PATTERN LAYOUT TECHNICIAN Sexual Orientation Choose not to disclose 2021 2:22 PM SEWING PATTERN LAYOUT TECHNICIAN COVID-19 Exposure Response Date Recorded In the last 10 days, have yo u been in contact with someone who was confirmed or suspected to have Coronavirus/COVID-19? No / Unsure 10/04/2021 1:33 PM CDT documented as of this encounter Last Filed Vital Signs Vital Sign Reading Time Taken Comments Blood Pressure 102/70 10/04/2021 1:34 PM CDT Pulse 109 10/04/2021 1:34 PM CDT Temperature 36.8 ??C (98.3 ??F) 10/04/2021 1:34 PM CD T Respiratory Rate 18 10/04/2021 1:34 PM CDT Oxygen Saturation 97% 10/04/2021 1:34 PM CDT Inhaled Oxygen Concentration - - Weight 44.5 kg (98 lb) 10/04/2021 1:34 PM CDT Height 157.5 cm (5' 2 ) 10/04/2021 1:34 PM CDT Body Mass Index 17.92 10/04/2021 1:34 PM CDT documented in this encounter Progress Notes * Jacquie Fair NP - 10/04/2021 1:40 PM CDTAddended by: JACQUIE FAIR on: 10/05/2021 08:45 AM Modules accepted: Orders * Jacquie Fair NP - 10/04/2021 1:40 PM CDT Reason for Visit: Cough (Cough, headache, ears rings, sweaty, sinus drainage x 10 days) History of Present Illness: Shagufta is a 36-year-old female who presents to office due to UR complaints for the past 10 days. She reports initially started with sinus congestion and drainage, generalized headache which is now progressed to a frequent cough, wheezing, sweats and chills. Reports fever max temp 100.4. She has been taking DayQuil/NyQuil, Tessalon Perles, Sudafed, and was prescribed Medrol Dosepak without any relief of symptoms. Denies chest pain, palpitations, shortness of breath, dizziness, or lightheadedness. Denies hemoptysis. Pt is an occasional cigarette smoker but has not smoked recently since being ill. Patient's son had UR symptoms recently. Patient has taken a home COVID test that was negative. No recent travel. Pt is still eating and drinking normally. Hx of C-Diff infection from cephalosphorine use. Medications: Current Outpatient Medications: ??? albuterol sulfate HFA 108 (90 Base) MCG/ACT inhaler, Inhale 2 puffs into the lungs every 6 (six) hours as needed for Wheezing or Shortness of breath., Disp: 18 g, Rfl: 0 ??? amoxicillin-clavulanate (AUGMENTIN) 875-125 MG tablet, Take 1 tablet (875 mg total) by mouth 2 (two) times daily for 10 days., Disp: 20 tablet, Rfl: 0 ??? azithromycin (ZITHROMAX) 250 MG tablet, Take 2 tablets by mouth on day one then 1 daily for four days., Disp: 6 tablet, Rfl: 0 ??? benzonatate (TESSALON PERLES) 100 MG capsule, Take 1 capsule (100 mg total) by mouth 3 (three) times daily as needed for Cough., Disp: 20 capsule, Rfl: 0 ??? DULoxetine 60 MG capsule, Take 1 capsule (60 mg total) by mouth daily., Disp: 90 capsule, Rfl: 0 ??? pantoprazole EC (PROTONIX) 40 MG tablet, Take 1 tablet (40 mg total) by mouth daily., Disp: 90 tablet, Rfl: 1 ??? methylPREDNISolone, LUCIANO, (MEDROL DOSEPAK) 4 MG tablet, , Disp: , Rfl: Allergies Allergen Reactions ??? Cephalosporins Diarrhea and Vomiting CDIF ??? Codeine Unknown and Shakiness ??? Latex Rash Past Medical History: Diagnosis [...] D&C AFTER DELIVERY miscarriage ??? EXPLORATORY LAPAROSCOPY 2007 X2 2007 and 2009 ??? HC TUBING LEEP ??? REMOVAL OF FALLOPIAN TUBE 2009 ??? REPAIR OF NASAL SEPTUM ??? TONSILLECTOMY Social History Tobacco Use ??? Smoking status: Passive Smoke Exposure - Never Smoker ??? Smokeless tobacco: Never Used Vaping Use ??? Vaping Use: Never used Substance Use Topics ??? Alcohol use: Yes Comment: social, less than 1 drink per week ??? Drug use: Never No family history on file. ROS: Review of Systems Constitutional: Positive for fever and malaise/fatigue. HENT: Positive for congestion. Respiratory: Positive for cough and wheezing. Negative for hemoptysis and shortness of breath. Cardiovascular: Negative for chest pain and palpitations. Gastrointestinal: Negative. Genitourinary: Negative. Musculoskeletal: Negative. Neurological: Positive for headaches. Negative for dizziness. Loss of consciousness: Physical Exam Constitutional: General: She is not in acute distress. Appearance: She is ill-appearing. She is not toxic-appearing or diaphoretic. HENT: Right Ear: Hearing, tympanic membrane and ear canal normal. Left Ear: Hearing, tympanic membrane and ear canal normal. Nose: Nose normal. Mouth/Throat: Lips: [place]. Mouth: Mucous membranes are moist. Cardiovascular: Rate and Rhythm: Regular rhythm. Pulses: Normal pulses. Heart sounds: Normal heart sounds. Pulmonary: Effort: Pulmonary effort is normal. Breath sounds: Wheezing and rhonchi (scattered to upper anterior and posterior lobes ) present. Comments: Frequent cough noted in exam room. Skin: Findings: No rash. Neurological: General: No focal deficit present. Mental Status: She is alert and oriented to person, place, and time. Psychiatric: Mood and Affect: Mood normal. Behavior: Behavior normal. Filed Vitals: 10/04/21 1334 BP: 102/70 Pulse: 109 Resp: 18 Temp: 98.3 ??F (36.8 ??C) TempSrc: Temporal SpO2: 97% Weight: 44.5 kg (98 lb) Height: 5' 2 (1.575 m) Assessment/Recommendations/Plan Encounter Diagnose(s) ICD-10-CM ICD-9-CM SNOMED CT(R) 1. Community acquired pneumonia, unspecified laterality J18.9 486 COMMUNITY ACQUIRED PNEUMONIA amoxicillin-clavulanate (AUGMENTIN) 875-125 MG tablet azithromycin (ZITHROMAX) 250 MG tablet albuterol sulfate HFA 108 (90 Base) MCG/ACT inhaler 2. Wheezing R06.2 786.07 WHEEZING albuterol sulfate HFA 108 (90 Base) MCG/ACT inhaler 3. Cough R05.9 786.2 COUGH albuterol sulfate HFA 108 (90 Base) MCG/ACT inhaler benzonatate (TESSALON PERLES) 100 MG capsule 4. Antral gastritis K29.50 535.40 GASTRITIS pantoprazole EC (PROTONIX) 40 MG tablet Will begin antibiotics to cover for CAP. If symptoms do not improve in the next 48 hours to follow up. Monitor for diarrhea and risk for C.Diff d/t use of antibiotics. Increase fluid intake and get plenty of rest. Good handwashing. Instructed not to share food or drink with others. For sore throat-May try as needed: salt water gargles (1/4-1/2 teaspoon of salt per 8 oz glass warmwater), Ibuprofen (Advil) as directed on the bottle for age/weight--take with food, Chloroseptic spray as directed on the bottle for age/weight, cough drops as directed on the package for age/weight or hard candy, or 1 teaspoon of honey or heavy peach syrup. Nasal congestion-May try as needed: ??Elliott's Vapor Rub, humidifier, nasal saline spray as well as nasal saline flushes/Pat Pot and Flonase. For severe congestion can use Afrin for max use of three days. ??May try oral antihistamines (claritin/lucila/zyrtec) as directed on the package for age/weight Fever/Comfort: ??May try Tylenol (acetaminophen) or Advil/Motrin (Ibuprofen) as directed on the bottle for age/weight as needed. Cough: ??May also try teaspoon honey or heavy peach syrup every 4 hrs as needed. Follow up: 2 days with update, severe shortness of breath, fever worsens with antibiotic therapy, unable to keep food or fluids down to seek ER care. JACQUIE FAIR NP 10/04/2021 2:14 PM Cosigned by Lg Baldwin MD at 10/14/2021 10:34 AM CDT documented in this encounter Plan of Treatment Not on file documented as of this encounter Visit Diagnoses Diagnosis Community acquired pneumonia, unspecified laterality Wheezing Cough Antral gastritis Other specified gastritis without mention of hemorrhage documented in this encounter Administered Medications Administered Medications Medication Order MAR Action Action Date Dose Rate Site Rho D Immune Globulin Inj Given 07/09/2018 300 mcg documented in this encounter Additional Health Concerns Assessment Noted Time PHQ-9 Depression Total Score: 0 02/29/20 21 9:14 AM SEWING PATTERN LAYOUT TECHNICIAN documented as of this encounter Care Teams Vest Busheler Relationship Specialty Start Date End Date Jacquie Fair NP [address] [place] [address] PCP - General NURSE PRACTITIONER 06/20/21 documented as of this encounter
--- OUTSIDE RECORDS SUMMARY | 2024-02-27 09:34 | XMS_ITS | Encounter Summary ---
Author Organization [facility] - [facility] Address [facility]6 [facility] [place] [address] [place] [address] Care Team Providers Care Primer And Powder Canning Leader Name Role Phone Jacquie Fair NP Primary Care Provider [phone] [phone] Reason for Visit * Reason Comments Abdominal Pain Abdominal pain and b loating last 6 weeks seems to have gotten better. * Consultation (Urgent) - Closed Specialty Diagnoses / Procedures Referred By Nir small Referred To Contact GASTROENTEROLOGY Diagnoses Antral gastritis Anemia, unspecified type Jacquie Fair, TRICIA [address] [place] [address] Phone: tel: fax: Garret John MD [address] [facility] [address] [place] [address] Phone: tel: fax: Referral ID Status Reason Start Date Expiration Date Visits Re quested Visits Authorized [id number] Closed 07/07/2021 08/08/2022 100 100 Encounter Details Date Type Department Care Team (Latest Contact Info) Description 08/16/2021 12:40 PM CDT Office Visit [facility] - [facility] 3 [facility] [address] [place] [address] Garret John MD [address] [place] [address] [address] [place] [address] Abdominal Pain (Abdominal pain and bloating last 6 weeks seems to have gotten better.) Social History Tobacco Use Types Packs/Day Years [...] on file Legal Sex Female 9:41 PM ANIMAL CONTROL SPECIALIST Gender Identity Female 04/24/2021 2:22 PM ANIMAL CONTROL SPECIALIST Sexual Orientation Choose not to disclose 2021 2:22 PM ANIMAL CONTROL SPECIALIST COVID-19 Exposure Response Date Recorded In the last 10 days, have yo u been in contact with someone who was confirmed or suspected to have Coronavirus/COVID-19? No / Unsure 08/16/2021 12:09 PM CDT documented as of this encounter Last Filed Vital Signs Vital Sign Reading Time Taken Comments Blood Pressure 102/70 08/16/2021 1:05 PM CDT Pulse 74 08/16/2021 1:05 PM CDT Temperature 36.4 ??C (97.5 ??F) 08/16/2021 1:05 PM CD T Respiratory Rate - - Oxygen Saturation 100% 08/16/2021 1:05 PM CDT Inhaled Oxygen Concentration - - Weight 44.8 kg (98 lb 11.2 oz) 08/16/2021 1:05 P M CDT Height 157.5 cm (5' 2 ) 08/16/2021 1:05 PM CDT Body Mass Index 18.05 08/16/2021 1:05 PM CDT documented in this encounter Progress Notes * Garret John MD - 08/16/2021 12:40 PM CDT Images from the original note were not included. Gastroenterology Initial Visit Reason for Visit: Abdominal Pain (Abdominal pain and bloating last 6 weeks seems to have gotten better.) History of Present Illness: 35-year-old female with anemia. She is anemic with hemoglobin 9. She also had some epigastric abdominal pain recently and was started on Protonix 40 mg plus Carafate. She medication for about 6 weeksand her pain is gone. She was anemic and so was a blueprint clerk recently who told her that was likely due to her heavy menses. Patient does report heavy menstrual. ROS: General: No fever, chills, malaise, fatigue, weight loss or gain HEENT: No acute changes in vision or hearing Respiratory: No shortness of breath, cough, sputum production, hemoptysis Cardiovascular: No chest pain, palpitations, orthopnea Gastrointestinal: As per HPI Musculoskeletal: No dysuria, hematuria, incontinence Neuro: No extremity edema, myalgia Hematology: No easy bruising, bleeding Skin: No new skin rashes or lesions Medications: Current Outpatient Medications: ??? DULoxetine 60 MG capsule, Take 1 capsule (60 mg total) by mouth daily., Disp: 90 capsule, Rfl: 0 ??? pantoprazole EC (PROTONIX) 40 MG tablet, Take 1 tablet (40 mg total) by mouth daily., Disp: 90 tablet, Rfl: 1 ??? sucralfate 1 G tablet, Take 1 g by mouth 4 (four) times daily before meals and nightly. Has been taking PRN, Disp: , Rfl: Allergies: Allergies Allergen Reactions ??? Cephalosporins Diarrhea and Vomiting CDIF ??? Codeine Seizure ??? Latex Rash ??? Penicillins Rash Medical History: Past Medical History: Diagnosis Date ??? ADHD [...] 2009 ??? POTS (postural orthostatic tachycardia syndrome) Surgical History: Past Surgical History: Procedure Laterality Date ??? SECTION 2008 ??? COLONOSCOPY 2009 ? ? D&C AFTER DELIVERY miscarriage ??? EXPLORATORY LAPAROSCOPY 2007 X2 2007 and 2009 ??? HC TUBING LEEP ??? REMOVAL OF FALLOPIAN TUBE 2009 ??? REPAIR OF NASAL SEPTUM ??? TONSILLECTOMY Social History: Family History: No family history on file. PE: Filed Vitals: 08/16/21 1305 BP: 102/70 Pulse: 74 Temp: 97.5 ??F (36.4 ??C) TempSrc: Temporal SpO2: 100% Weight: 44.8 kg (98 lb 11.2 oz) Height: 5' 2 (1.575 m) General: In NAD, pleasant and appropriate HEENT: Anicteric Cardiovascular: RRR, no m Pulmonary: CTA BL, no added sounds Abdomen: Soft, ND/NT, normoactive BS Skin: Anicteric, no rashes Neuro: A&Ox3 Labs: Diagnoses/Impression: Recent abdominal pain which is resolved Protonix and Carafate. Anemia with a history of heavy menses. Patient has seen a blueprint clerk which seems to agree that it is due to her menses. At this point I gave her several reasons including a 3 months follow-up versus an upper GI exam versus an upper endoscopy. We may also need to pursue a colonoscopy given that she is anemic although I think the anemia is likely explained by her heavy menses. However I also told her that we could proceed with endoscopic examinations to ensure that we have not missed anything serious in the bowels. She will think about it. Recommendations and Plan: ?? EGD and colonoscopy versus upper GI examination. Patient will think about it. ?? See me back in 3 months. ?? Finished Protonix a total of 2 months for suspected ulcer of stomach ?? All questions answered ?? More recommendations to follow endoscopic evaluation Risks/Benefits/Options: Patient presented with risks (can include but are not limited to: discomfort, missing lesions, allergic or adverse reaction to the sedation, perforation of the bowel which may require hospitaliztion and surgery, bleeding, infection, aspiration), benefits, and alternatives to the procedure(s) and they are in agreement to proceed as planned. GARRET JOHN MD 08/16/2021 Voice recognition software utilized documented in this encounter Plan of Treatment Not on file documented as of this encounter Visit Diagnoses Diagnosis Epigastric pain- Primary Abdominal pain, epigastric Iron deficiency anemia due to chronic blood loss Iron deficiency anemia secondary to blood loss (chronic) documented in this encounter Additional Health Concerns Assessment Noted Time PHQ-9 Depression Total Score: 0 02/29/20 21 9:14 AM ANIMAL CONTROL SPECIALIST documented as of this encounter Care Teams Primer And Powder Canning Leader Relationship Specialty [place] Date End Date Jacquie Fair NP [address] [place] [address] PCP - General NURSE PRACTITIONER 06/20/21 documented as of this encounter
--- OUTSIDE RECORDS SUMMARY | 2024-02-27 09:34 | XMS_ITS | Encounter Summary ---
Author Organization [facility] Address [address] [place] [address]. 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
--- OUTSIDE RECORDS SUMMARY | 2024-02-27 09:34 | XMS_ITS | Encounter Summary ---
Author Organization [facility] Address [address] [place] [address]. [place] [address] [place] [address] Care Team Providers Care Button Machine Operator Name Role Phone Jacquie Fair NP Primary Care Provider [phone] [phone] Encounter Details Date Type Department Care Team (Latest Contact Info) Description 02/28/2022 10:28 AM TIME STUDY TECHNOLOGIST - 02/28/2022 11:59 PM TIME STUDY TECHNOLOGIST Hospital Encounter [facility] [address] [place] [address] Josh Akhtar, DO [address] [facility] [address] [place] [phone] Discharge Disposition: Home or Self Care (Routine Discharge) Social History Tobacco Use Types Packs/Day Years [...] on file Legal Sex Female 9:41 PM TIME STUDY TECHNOLOGIST Gender Identity Female 04/24/2021 2:22 PM TIME STUDY TECHNOLOGIST Sexual Orientation Choose not to disclose 2021 2:22 PM TIME STUDY TECHNOLOGIST documented as of this encounter Medications at Time of Discharge albuterol sulfate HFA 108 (90 Base) MCG/ACT inhalerIndication s:Community acquired pneumonia, unspecified laterality,Wheezi ng,Acute cough Inhale 2 puffs into the lungs every 4 (four) hours as needed for Wheezing or Shortness of breath. 8.5 g 3 12/12/2021 4 Cyanocobalamin (VITAMIN B-12 OR) 02 3 DULoxetine (CYMBALTA) 60 MG capsuleIndication s:Seasonal depression (CMS/HCC) TAKE 1 CAPSULE(60 MG) BY MOUTH DAILY 90 capsule 12/25/2021 3 ferrous sulfate, 65 mg elemental, 325 (65 FE) MG tablet 3 fluticasone-salme terol (ADVAIR DISKUS) 250-50 MCG/ACT inhalerIndication s:Upper respiratory tract infection, unspecified type,Acute cough Inhale 1 puff into the lungs 2 (two) times daily. 14 each 12/15/2021 3 documented as of this encounter Plan of Treatment Not on file documented as of this encounter Procedures Procedure Name Priority Date/Time Associated Diagnosis Comments IRON SAT PANEL (IRON,IBC,%SAT) Routine 02/28/2022 9:25 AM TIME STUDY TECHNOLOGIST Iron deficiency anemia, unspecified iron deficiency anemia type COMPREHENSIVE METABOLIC PANEL Routine 02/28/2022 9:25 AM TIME STUDY TECHNOLOGIST Iron deficiency anemia, unspecified iron deficiency anemia type CBC W/DIFF AUTOMATED Routine 02/28/2022 9:25 AM TIME STUDY TECHNOLOGIST Iron deficiency anemia, unspecified iron deficiency anemia type FERRITIN Routine 02/28/2022 9:25 AM TIME STUDY TECHNOLOGIST Iron deficiency anemia, unspecified iron deficiency anemia type documented in this encounter Results * (ABNORMAL) CBC W/DIFF AUTOMATED (02/28/2022 9:25 AM TIME STUDY TECHNOLOGIST) WBC 5.91 4.50 - 11.00 x10'3/uL 02/28/2022 10:57 AM TIME STUDY TECHNOLOGIST [facility] RBC 4.25 4.20 - 5.40 x10'6/uL 02/28/2022 10:57 AM [facility] HGB 12.3 12.0 - 16.0 G/DL 02/28/2022 10:57 AM [facility] HCT 38.3 38.0 - 48.0 % 02/28/2022 10:57 AM [facility] MCV 90.1 81.0 - 99.0 FL 02/28/2022 10:57 AM [facility] MCH 28.9 27.0 - 31.0 PG 02/28/2022 10:57 AM [facility] MCHC 32.1 32.0 - 36.0 G/DL 02/28/2022 10:57 AM [facility] RDW 14.8(H) 11.5 - 14.5 % 02/28/2022 10:57 AM [facility] PLT 258 130 - 400 x10'3/uL 02/28/2022 10:57 AM [facility] MPV 10.2 9.3 - 12.2 FL 02/28/2022 10:57 AM [facility] CBC COMMENT AUTOMATED RBC MORPHOLOGY AND PLATELET EVALUATION NORMAL 02/28/2022 10:57 AM [facility] NEUTROPHILS % 71.0 % 02/28/2022 10:57 AM [facility] LYMPHOCYTES % 13.5 % 02/28/2022 10:57 AM [facility] MONOCYTES % 9.8 % 02/28/2022 10:57 AM [facility] EOSINOPHILS 4.4 % 02/28/2022 10:57 AM [facility] BASOPHILS 1.0 % 02/28/2022 10:57 AM [facility] IMMATURE GRANS % 0.3 % 02/29/20 10:57 AM [facility] NRBC 0.0 % 02/28/2022 10:57 AM [facility] ABS. NEUTROPHILS TOTAL 4.19 1.80 - 7.70 x10'3/uL 02/28/2022 10:57 AM [facility] ABS. LYMPHOCYTES 0.80(L) 1.00 - 4.80 x10'3/uL 02/28/2022 10:57 AM [facility] ABS. MONOCYTES 0.58 0.24 - 0.86 x10'3/uL 02/28/2022 10:57 AM [facility] ABS. EOSINOPHILS 0.26 0.04 - 0.36 x10'3/uL 02/28/2022 10:57 AM [facility] ABS. BASOPHILS 0.06 0.01 - 0.08 x10'3/uL 02/28/2022 10:57 AM [facility] ABS. IMMATURE GRANULOCYTES 0.02 0.00 - 0.49 x10'3/uL 02/28/2022 10:57 AM [facility] ABS. NUCLEATED RBC'S 0.00 0.00 - 0.01 x10'3/uL 02/28/2022 10:57 AM [facility] 02/28/2022 9:25 AM [facility] us Josh Akhtar DO LABORATORY Final Result [facility] [address] [place] [address], [place] [phone] * (ABNORMAL) COMPREHENSIVE METABOLIC PANEL (02/28/2022 9:25 AM TIME STUDY TECHNOLOGIST) [facility] GLUCOSE 47(L) 70 - 99 MG/DL 02/28/2022 11:05 AM [facility] BUN 15 7 - 18 MG/DL 02/28/2022 11:05 AM [facility] CREATININE S/P/B 0.74 0.55 - 1.02 MG/DL 02/28/2022 11:05 AM [facility] SODIUM S/P/B 142 136 - 145 MMOL/L 02/28/2022 11:05 AM [facility] POTASSIUM S/P/B 3.5 3.5 - 5.1 MMOL/L 02/28/2022 11:05 AM [facility] CHLORIDE S/P/B 106 100 - 108 MMOL/L 02/28/2022 11:05 AM [facility] CO2 26.8 21 - 32 MMOL/L 02/28/2022 11:05 AM [facility] CALCIUM S/P/B 8.4(L) 8.5 - 10.1 MG/DL 02/28/2022 11:05 AM [facility] BILIRUBIN TOTAL S/P/B 0.3 0.2 - 1.2 MG/DL 02/28/2022 11:05 AM [facility] Comment: THIS ASSAY IS NOT RECOMMENDED FOR PATIENTS UNDERGOING TREATMENT WITH ELTROMBOPAG DUE TO THE POTENTIAL FOR FALSELY ELEVATED RESULTS. TOTAL PROTEIN S/P/B 6.5 6.4 - 8.2 G/DL 02/28/2022 11:05 AM [facility] ALBUMIN S/P/B 3.7 3.4 - 5.0 G/DL 02/28/2022 11:05 AM [facility] AST 40(H) 15 - 37 U/L 02/28/2022 11:05 AM [facility] ALT 24 14 - 55 U/L 02/28/2022 11:05 AM [facility] ALKALINE PHOSPHATASE S/P/B 43(L) 50 - 136 U/L 02/28/2022 11:05 AM [facility] ANION GAP 9.2 5 - 15 MMOL/L 02/28/2022 11:05 AM [facility] BUN CREATININE RATIO 20.3 6 - 26 02/28/2022 11:05 AM [facility] A/G RATIO 1.3 1.0 - 2.0 RATIO 02/28/2022 11:05 AM [facility] GFR ESTIMATE >90 >90 ML/MIN/1.7 3 M2 02/28/2022 11:05 AM [facility] Comment: NOTE: eGFR is not calculated for patients <18 years of age. This is an estimated GFR calculation using the new CKD EPI creatinine equation without race and so does not require a correction factor for race. This estimated GFR should not be used for calculating drug doses. 02/28/2022 9:25 AM TIME STUDY TECHNOLOGIST us Josh Akhtar DO LABORATORY Final Result [facility] [address] [place] [address], [place] [phone] * FERRITIN (02/28/2022 9:25 AM TIME STUDY TECHNOLOGIST) FERRITIN 329.0 8.0 - 388.0 NG/ML 02/28/2022 7:12 PM TIME STUDY TECHNOLOGIST [facility] 02/28/2022 9:25 AM TIME STUDY TECHNOLOGIST us Josh Akhtar DO LABORATORY Final Result [facility] [address] [place] [address], [place] [phone] * (ABNORMAL) IRON SAT PANEL (IRON,IBC,%SAT) (02/28/2022 9:25 AM TIME STUDY TECHNOLOGIST) IRON 39(L) 50 - 170 MCG/DL 02/28/2022 7:12 PM TIME STUDY TECHNOLOGIST [facility] IRON BINDING CAPACITY 230(L) 250 - 450 MCG/DL 02/28/2022 7:12 PM TIME STUDY TECHNOLOGIST [facility] IRON SATURATION 17(L) 20 - 55 % 7:12 PM TIME STUDY TECHNOLOGIST [facility] 02/28/2022 9:25 AM TIME STUDY TECHNOLOGIST us Josh Akhtar DO LABORATORY Final Result [facility] [address] [place] [address], [place] [phone] documented in this encounter Visit Diagnoses Diagnosis Iron deficiency anemia, unspecified iron deficiency anemia type documented in this encounter Additional Health Concerns Assessment Noted Time PHQ-9 Depression Total Score: 0 02/29/20 9:14 AM TIME STUDY TECHNOLOGIST documented as of this encounter Care Teams Button Machine Operator Relationship Specialty Start Date End Date Jacquie Fair NP [address] [place] [address] PCP - General NURSE PRACTITIONER 06/20/21 documented as of this encounter
--- OUTSIDE RECORDS SUMMARY | 2024-02-27 09:34 | XMS_ITS | Encounter Summary ---
Author Organization [facility] Address [address] [place] [address]. [place] [address] [place] [address] Care Team Providers Care Junior Underwriter Name Role Phone Jacquie Fair NP Primary Care Provider [phone] [phone] Encounter Details Date Type Department Care Team (Latest Contact Info) Description 12/12/2021 - 12/12/2021 12:28 PM CDT Hospital Encounter [facility] [address] [place] [address] Jacquie Fair, UNDERWRITING SUPPORT MANAGER [address] [place] [address] Discharge Disposition: Home or Self Care (Routine [...] on file Legal Sex Female 9:41 PM BRINE MIXER OPERATOR Gender Identity Female 04/24/2021 2:22 PM BRINE MIXER OPERATOR Sexual Orientation Choose not to disclose 2021 2:22 PM BRINE MIXER OPERATOR COVID-19 Exposure Response Date Recorded In the last 10 days, have yo u been in contact with someone who was confirmed or suspected to have Coronavirus/COVID-19? No / Unsure 12/12/2021 11:06 AM CDT documented as of this encounter Medications at Time of Discharge Cyanocobalamin (VITAMIN B-12 OR) 023 DULoxetine 60 MG capsuleIndication s:Seasonal depression (CMS/HCC) Take 1 capsule (60 mg total) by mouth daily. 90 capsule 07/25/2021 12/25/2021 ferrous sulfate, 65 mg elemental, 325 (65 FE) MG tablet 04/13/2022 documented as of this encounter Plan of [...] Total Score: 0 02/29/20 21 9:14 AM BRINE MIXER OPERATOR documented as of this encounter Care Teams Junior Underwriter Relationship Specialty Start Date End Date Jacquie Fair NP [address] [place] [address] PCP - General NURSE PRACTITIONER 06/20/21 documented as of this encounter
--- OUTSIDE RECORDS SUMMARY | 2024-02-27 09:34 | XMS_ITS | Encounter Summary ---
Author Organization [facility] Address [address] [place] [address]. [place] [address] [place] [address] Care Team Providers Care Appliquer Zigzag Name Role Phone Jacquie Fair NP Primary Care Provider [phone] [phone] Reason for Visit * Reason Comments Hearing Loss * Audiology Exam (Routine) - Closed Specialty Diagnoses / Procedures Referred By Nir small Referred To Contact AUDIOLOGY / [facility] Audiology Diagnoses Bilateral hearing loss, unspecified hearing loss type Jacquie Fair, TRICIA [address] [place] [address] Phone: tel: fax: [facility] [address] [place] [address] Phone: tel: fax: Referral ID Status Reason Start Date Expiration Date V isits Requested Visits Authorized [id number] Closed Specialty Services 07/05/2021 08/04/2022 1 1 Encounter Details Date Type Department Care Team (Late st Contact Info) Description 10/17/2021 8:00 AM CDT Office Visit [facility] [address] [place] [id number] Juana Stallworth AUD [address] [place] [address] Hearing Loss Social History Tobacco Use Types Packs/Day Years [...] file Legal Sex Female 9:41 PM GRINDER SET UP OPERATOR SURFACE Gender Identity Female 04/24/2021 2:22 PM GRINDER SET UP OPERATOR SURFACE Sexual Orientation Choose not to disclose 2021 2:22 PM GRINDER SET UP OPERATOR SURFACE COVID-19 Exposure Response Date Recorded In the last 10 days, have yo u been in contact with someone who was confirmed or suspected to have Coronavirus/COVID-19? No / Unsure 10/17/2021 7:57 AM CDT documented as of this encounter Progress Notes * DOMINGO Schmidt - 10/17/2021 8:00 AM CDTSummary: Audiometric Evaluation History: Shagufta Lamar, a 36 year-old female, was seen today for an audiological assessment. She reports hearing difficulties, tinnitus, and dizziness. There is not a history of ear surgeries. There is a history of noise exposure. There is not a family history of hearing loss. Results: Otoscopic examination revealed clear canal with visible tympanic membranes, bilaterally. Tympanometric testing showed a Type A tympanogram bilaterally, which is indicative of normal middleear function. The audiogram revealed normal hearing, bilaterally. Word recognition scores were excellent. The SRT/ELECTRICAL SUPERINTENDENT were in good agreement. Recommendations: Patient to follow-up with ENT/PCP. Audiological assessment if changes/concerns arise. Use of hearing protection when in the presence of noise. APD testing if interested. Domingo Schmidt Crack Off Person [facility] documented in this encounter Plan of Treatment Not on file documented as of this encounter Visit Diagnoses Diagnosis Normal hearing noted on examination- Primary Tinnitus, bilateral Unspecified tinnitus Dizziness Dizziness and giddiness documented in this encounter Additional Health Concerns Assessment Noted Time PHQ-9 Depression Total Score: 0 02/29/20 9:14 AM GRINDER SET UP OPERATOR SURFACE documented as of this encounter Care Teams Appliquer Zigzag Relationship Specialty Start Date End Date Jacquie Fair NP [address] [place] [address] PCP - General NURSE PRACTITIONER 06/20/21 documented as of this encounter
--- OUTSIDE RECORDS SUMMARY | 2024-02-27 09:34 | XMS_ITS | Encounter Summary ---
Author Organization [facility] Address [address] [place] [address]. [place] [address] [place] [address] Care Team Providers Care Educational Technician Name Role Phone Jacquie Fair NP Primary Care Provider [phone] Reason for Visit * Reason Comments Cough Patient presents wit h c/o cough with yellow/green phlegm, chest congestion, wheezing, sob, and lymph node in neck hurt. X 3 weeks She took 2 COVID test at home and both negative took about 1 week ago Encounter Details Date Type Department Care Team (Late st Contact Info) Description 12/12/2021 11:40 AM CDT Office Visit [facility] - [place] [address] [id number] Jacquie Fair, TRICIA [address] [place] [address] Cough (Patient presents with c/o cough with yellow/green phlegm, chest congestion, wheezing, sob, and lymph node in neck hurt. 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 No / Unsure 12/12/2021 11:06 AM CDT documented as of this encounter Last Filed Vital Signs Vital Sign Reading Time Taken Comments Blood Pressure 105/60 12/12/2021 11:25 AM CDT Pulse 127 12/12/2021 11:25 AM CDT Temperature 37.6 ??C (99.7 ??F) 12/12/2021 11:25 AM C DT Respiratory Rate - - Oxygen Saturation 100% 12/12/2021 11:25 AM CDT Inhaled Oxygen Concentration - - Weight 43.5 kg (96 lb) 12/12/2021 11:25 AM CDT Height - - Body Mass Index 17.56 10/04/2021 1:34 PM CDT documented in this encounter Progress Notes * Jacquie Fair, TRICIA - 12/12/2021 11:40 AM CDT Reason for Visit: Cough (Patient presents with c/o cough with yellow/green phlegm, chest congestion, wheezing, sob, and lymph node in neck hurt. X 3 weeks She took 2 COVID test at home and both negative took about 1 week ago) History of Present Illness: Shagufta is a 36-year-old female who presents to office with UR complaints for 3 weeks now. Reports frequent cough, having a hard time coughing anything up but occasional yellow and green sputum. Sinus congestion/nasal congestion, runny nose, shortness of breath, tightness, wheezing, and generalized fatigue. States has taken 2 home covid tests that were negative. States her son's daycare did have RSVgoing around. No one in her family is currently sick. No recent travel. Pt has not taken her temp but has had sweats. Denies hemoptysis, chest pain, rash, diarrhea, dizziness, lightheadedness. Pt started smoking cigarettes a year ago and smokes 2 cigarettes per day. Pt has been using her rescue inhaler four times a day without relief. Pt had similar symptoms as now in September and was thought pt to have CAP and was treated with Augmentin and Azithromycin and did get better with use. Pt stopped Augmentin early d/t causing diarrhea. Pt has been taking sudafed, dayquil and nyquil without relief. Medications: Current Outpatient Medications: ??? albuterol sulfate HFA 108 (90 Base) MCG/ACT inhaler, INHALE 2 PUFFS BY MOUTH EVERY 6 HOURS NEEDED FOR WHEEZING OR SHORTNESS OF BREATH, Disp: 8.5 g, Rfl: 3 ??? benzonatate (TESSALON PERLES) 100 MG capsule, Take 1 capsule (100 mg total) by mouth 3 (three) times daily as needed for Cough., Disp: 20 capsule, Rfl: 0 ??? Cyanocobalamin (VITAMIN B-12 OR), , Disp: , Rfl: ??? DULoxetine 60 MG capsule, Take 1 capsule (60 mg total) by mouth daily., Disp: 90 capsule, Rfl: 0 ??? ferrous sulfate, 65 mg elemental, 325 (65 FE) MG tablet, , Disp: , Rfl: ??? levoFLOXacin (LEVAQUIN) 750 MG tablet, Take 1 tablet (750 mg total) by mouth daily for 10 days., Disp: 10 tablet, Rfl: 0 ??? predniSONE (DELTASONE) 20 MG tablet, Take 1 tablet (20 mg total) by mouth daily for 5 days., Disp: 5 tablet, Rfl: 0 Allergies Allergen Reactions ??? [...] Laterality Date ??? SECTION 2007 ??? COLONOSCOPY 2009 ? ? D&C AFTER [...] Never No family history on file. ROS: ROS pertinent positives and negatives noted in HPI. Physical Exam Constitutional: General: She is not in acute distress. Appearance: Normal appearance. She is ill-appearing. She is not toxic-appearing or diaphoretic. Cardiovascular: Rate and Rhythm: Regular rhythm. Tachycardia present. Pulses: Normal pulses. Pulmonary: Effort: No bradypnea or respiratory distress. Breath sounds: No stridor. No wheezing or rhonchi. Comments: Frequent, strong, nonproductive cough noted Chest: Chest wall: No tenderness. Lymphadenopathy: Head: Right side of head: Tonsillar (shotty ) adenopathy present. Left side of head: Tonsillar (shotty ) adenopathy present. Neurological: Mental Status: She is alert and oriented to person, place, and time. Filed Vitals: 12/12/21 1125 BP: 105/60 Pulse: 127 Temp: 99.7 ??F (37.6 ??C) TempSrc: Temporal SpO2: 100% Weight: 43.5 kg (96 lb) Results for orders placed or performed in visit on 12/12/21 RESP SYNCYTIAL VIRUS Specimen: NASOPHARYNGEAL SWAB Result Value Ref Range RSV NEGATIVE NEGATIVE Internal Control: VALID VALID CORONAVIRUS (COVID-19) INFLUENZA A & B ANTIGEN IA PANEL Specimen: NASAL Result Value Ref Range CORONAVIRUS ANTIGEN IA NEGATIVE NEGATIVE INFLUENZA A NEGATIVE NEGATIVE INFLUENZA B NEGATIVE NEGATIVE Internal Control: VALID VALID .this Assessment/Recommendations/Plan Encounter Diagnose(s) ICD-10-CM ICD-9-CM SNOMED CT(R) 1. Upper respiratory tract infection, unspecified type J06.9 465.9 UPPER RESPIRATORY INFECTION CBC W/DIFF AUTOMATED COMPREHENSIVE METABOLIC PANEL CULTURE, BACTERIA, BLOOD SED RATE, ERYTHROCYTE (ESR) C-REACTIVE PROTEIN CULTURE, BACTERIA, BLOOD PROCALCITONIN (PCT) XR CHEST PA+LAT RESP SYNCYTIAL VIRUS CORONAVIRUS (COVID-19) INFLUENZA A & B ANTIGEN IA PANEL CORONAVIRUS (COVID 19) PCR ([facility]) CORONAVIRUS (COVID 19) PCR ([facility]) levoFLOXacin (LEVAQUIN) 750 MG tablet predniSONE (DELTASONE) 20 MG tablet 2. Acute cough R05.1 786.2 COUGH CBC W/DIFF AUTOMATED COMPREHENSIVE METABOLIC PANEL CULTURE, BACTERIA, BLOOD SED RATE, ERYTHROCYTE (ESR) C-REACTIVE PROTEIN CULTURE, BACTERIA, BLOOD PROCALCITONIN (PCT) XR CHEST PA+LAT RESP SYNCYTIAL VIRUS CORONAVIRUS (COVID-19) INFLUENZA A & B ANTIGEN IA PANEL CORONAVIRUS (COVID 19) PCR ([facility]) CORONAVIRUS (COVID 19) PCR ([facility]) levoFLOXacin (LEVAQUIN) 750 MG tablet benzonatate (TESSALON PERLES) 100 MG capsule predniSONE (DELTASONE) 20 MG tablet Influenza/COVID/RSV negative STAT chest xray and labs ordered O2 stable and no acute distress in office but appears ill. Pt notified of her lab results and chest xray results around 1245. ESR, CRP slightly elevated, WBC normal, chest xray negative for pneumonia but hyperinflammation of lungs noted. Once well will orderpt a PFT. Highly encourage smoking cessation. D/t UR symptoms for 3 weeks and cough beginning antibiotic therapy and oral steroid. (inahler steroid initially ordered but pharmacy was out of the inhaler so pt switched to oral) Tessalon Perles for cough ordered. If symptoms worsen, develops a fever while on antibiotic therapy to seek ER care. Increase fluid intake and get plenty of [...] every 4 hrs as needed. Follow up: 3 days. JACQUIE FAIR NP 12/12/2021 3:12 PM documented in this encounter Plan of Treatment Not on file documented as of this encounter Procedures Procedure Name Priority Date/Time Associated Diagnosis Comments CORONAVIRUS (COVID 19) PCR Routine 12/12/2021 12:19 PM CDT Upper respiratory tract infection, unspecified type Acute cough CORONAVIRUS (COVID-19) INFLUENZA A & B ANTIGEN IA PANEL Routine 12/12/2021 Upper respiratory tract infection, unspecified type Acute cough RESP SYNCYTIAL VIRUS Routine 12/12/2021 Upper respiratory tract infection, unspecified type Acute cough documented in this encounter Results * XR CHEST PA+LAT (12/12/2021 1:03 PM CDT) Anatomical Region Laterality Modality Chest Radiographic Janki ging 12/12/2021 1:08 PM CDT Impressions 12/12/2021 1:09 PM CDT IMPRESSION: 1. ??No evidence of acute cardiopulmonary disease. 2. ??No consolidation or volume loss. No pleural effusion or pneumothorax. Hyperinflation of both lungs versus deep inspiratory effort. 3. ??Normal heart size and pulmonary vascularity. Slight thoracolumbar curve. Ordered By: JACQUIE FAIR Interpreted By: Kiki Loyola, 12/12/2021 1:08 PM Narrative 12/12/2021 1:09 PM CDT EXAMINATION: XR CHEST PA+LAT EXAM DATE/TIME: 12/12/2021 12:56 PM CLINICAL HISTORY: Cough. COMPARISON: No comparison. Procedure Note Scar Loyola MD - 12/12/2021 EXAMINATION: XR CHEST PA+LAT EXAM DATE/TIME: 12/12/2021 12:56 PM CLINICAL HISTORY: Cough. COMPARISON: No comparison. IMPRESSION: 1. No evidence of acute cardiopulmonary disease. 2. No consolidation or volume loss. No pleural effusion or pneumothorax.Hyperinflation of both lungs versus deep inspiratory effort. 3. Normal heart size and pulmonary vascularity. Slight thoracolumbarcurve. Ordered By: JACQUIE FAIR Interpreted By: Kiki Loyola, 12/12/2021 1:08 PM Jacquie Fair FINISHED METAL REPAIRER GENERAL IMAGING Final Res ult * CULTURE, BACTERIA, BLOOD (12/12/2021 12:50 PM CDT) Pathologist [facility] SPEC DESCRIPTION BLOOD 12/12/2021 12:46 PM CDT [facility] SPECIAL REQUESTS NO SPECIAL REQUEST 12/12/2021 12:46 PM CDT [facility] CULTURE RESULT NO GROWTH 5 DAYS 12/17/2021 1:02 AM CDT [facility] BLOOD SPECIMEN OBTAINED FOR BLOOD CULTURE / Unknown 12/12/2021 12:50 PM CDT 12/12/2021 12:51 PM CDT Jacquie Fair FINISHED METAL REPAIRER MICROBIOLOGY - GENERAL OR DERABLES Final Result [facility] [address] [place] [address], [place] [phone] * PROCALCITONIN (PCT) (12/12/2021 12:45 PM CDT) Procalcitonin <0.05 0.00 - 0.25 NG/ML 12/12/2021 2:05 PM CDT [facility] Comment: PROCALCITONIN INTERPRETATION GUIDELINES LOWER RESPIRATORY TRACT INFECTIONS (LRTI): USE OF PCT IN INPATIENT OR EMERGENCY SITUATION INITIATION OF ANTIBIOTICS PCT VALUE ? INTERPRETATION <0.10 NG/ML ?ANTIBIOTIC THERAPY ? STRONGLY DISCOURAGED. 0.10-0.25 NG/ML ?ANTIBIOTIC THERAPY ? DISCOURAGED. 0.26-0.50 NG/ML ?ANTIBIOTIC THERAPY ? ENCOURAGED. >0.50 NG/ML ?ANTIBIOTIC THERAPY ? STRONGLY ENCOURAGED. DISCONTINUE ANTIBIOTICS PCT LESS THAN OR EQUAL TO 0.25 NG/ML OR DELTA PCT >80 PERCENT DELTA PCT= PCT(PEAK)-PCT(CURRENT)/PCT(PEAK)X100% STUDIES HAVE EVALUATED PCT PROTOCOLS IN THESE PATIENTS AND FOUND THAT FOR PATIENTS WHO ARE CLINICALLY STABLE AND ARE TREATED AT THE ED OR ARE HOSPITALIZED, THE INITIATION OF ANTIBIOTIC THERAPY SHOULD BE BASED ON CLINICAL GROUNDS AND A PCT VALUE OF GREATER THAN OR EQUAL TO 0.26 NG/ML. IF PCT REMAINS LOWER, ANTIBIOTICS CAN BE WITHHELD AND PATIENTS CAN BE REASSESSED CLINICALLY WITHOUT SAFETY CONCERNS. IF PATIENTS ARE CLINICALLY STABLE, AN ALTERNATIVE DIAGNOSIS SHOULD BE CONSIDERED. IF PATIENTS ARE UNSTABLE, THEN ANTIBIOTICS MAY BE CONSIDERED. IF PATIENTS DO NOT IMPROVE IN THE SHORT FOLLOW UP PERIOD OF 6 TO 12 HOURS, CLINICAL RE-EVALUATION AND RE-MEASUREMENT OF PCT IS RECOMMENDED. 12/12/2021 12:4 5 PM CDT us Jacquie Fair FINISHED METAL REPAIRER LABORATORY Final Res ult [facility] [address] [place] [address], * (ABNORMAL) C-REACTIVE PROTEIN (12/12/2021 12:45 PM CDT) C-REACTIVE PROTEIN 2.10(H) <0.9 mg/dL 12/12/2021 1:39 PM CDT [facility] 12/12/2021 12:4 5 PM CDT Jacquie Fair FINISHED METAL REPAIRER LABORATORY Final Res ult Performing Organization Address City/[facility]/ZIP Co de Phone Number [facility] [address] [place] [address], [place] [phone] * (ABNORMAL) SED RATE, ERYTHROCYTE (ESR) (12/12/2021 12:45 PM CDT) ESR 26(H) 0 - 20 MM/HR 12/12/2021 1:43 PM CDT [facility] 12/12/2021 12:4 5 PM CDT Jacquie Fair FINISHED METAL REPAIRER LABORATORY Final Res ult Performing Organization Address [facility] Co de Phone Number [facility] [address] [place] [address], [place] [phone] * CULTURE, BACTERIA, BLOOD (12/12/2021 12:45 PM CDT) SPEC DESCRIPTION BLOOD 12/12/2021 12:43 PM CDT [facility] SPECIAL REQUESTS NO SPECIAL REQUEST 12/12/2021 12:43 PM CDT [facility] CULTURE RESULT NO GROWTH 5 DAYS 12/17/2021 1:02 AM CDT [facility] BLOOD SPECIMEN OBTAINED FOR BLOOD CULTURE / Unknown 12/12/2021 12:45 PM CDT 12/12/2021 12:46 PM CDT us Jacquie Fair NP MICROBIOLOGY - GENERAL OR DERABLES Final Result [facility] [address] [place] [address], [place] [phone] * COMPREHENSIVE METABOLIC PANEL (12/12/2021 12:45 PM CDT) GLUCOSE 90 70 - 99 MG/DL 12/12/2021 1:39 PM CDT [facility] BUN 7 7 - 18 MG/DL 12/12/2021 1:39 PM CDT [facility] CREATININE S/P/B 0.75 0.55 - 1.02 MG/DL 12/12/2021 1:39 PM CDT [facility] SODIUM S/P/B 139 136 - 145 MMOL/L 12/12/2021 1:39 PM CDT [facility] POTASSIUM S/P/B 3.7 3.5 - 5.1 MMOL/L 12/12/2021 1:39 PM CDT [facility] CHLORIDE S/P/B 102 100 - 108 MMOL/L 12/12/2021 1:39 PM CDT [facility] CO2 27.6 21 - 32 MMOL/L 12/12/2021 1:39 PM CDT [facility] CALCIUM S/P/B 8.8 8.5 - 10.1 MG/DL 12/12/2021 1:39 PM CDT [facility] BILIRUBIN TOTAL S/P/B 0.3 0.2 - 1.2 MG/DL 12/12/2021 1:39 PM T [facility] TOTAL PROTEIN S/P/B 7.4 6.4 - 8.2 G/DL 12/12/2021 1:39 PM CDT [facility] ALBUMIN S/P/B 4.1 3.4 - 5.0 G/DL 12/12/2021 1:39 PM CDT [facility] AST 23 15 - 37 U/L 12/12/2021 1:39 PM CDT [facility] ALT 26 14 - 55 U/L 12/12/2021 1:39 PM CDT [facility] ALKALINE PHOSPHATASE S/P/B 55 50 - 136 U/L 12/12/2021 1:39 PM CDT [facility] ANION GAP 9.4 5 - 15 MMOL/L 12/12/2021 1:39 PM CDT [facility] BUN CREATININE RATIO 9.3 6 - 26 12/12/2021 1:39 PM T [facility] A/G RATIO 1.2 1.0 - 2.0 RATIO 12/12/2021 1:39 PM T [facility] GFR ESTIMATE >90 >90 ML/MIN/1.7 3 M2 12/12/2021 1:39 PM T [facility] Comment: NOTE: eGFR is not calculated for patients <18 years of age. This is an estimated GFR calculation using the new CKD EPI creatinine equation without race and so does not require a correction factor for race. This estimated GFR should not be used for calculating drug doses. 12/12/2021 12:4 5 PM CDT us Jacquie Fair NP LABORATORY Final Res ult [facility] [address] [place] [address], * (ABNORMAL) CBC W/DIFF AUTOMATED (12/12/2021 12:45 PM CDT) WBC 10.1 4.4 - 11.0 x10'3/uL 12/12/2021 1:22 PM CDT [facility] RBC 3.89(L) 4.50 - 5.10 x10'6/uL 12/12/2021 1:22 PM T [facility] HGB 11.8(L) 12.3 - 15.3 G/DL 12/12/2021 1:22 PM [facility] HCT 34.7(L) 35.9 - 44.6 % 12/12/2021 1:22 PM [facility] MCV 89.2 80.0 - 96.0 FL 12/12/2021 1:22 PM [facility] MCH 30.3 25.3 - 30.9 PG 12/12/2021 1:22 PM [facility] MCHC 34.0 31.0 - 34.1 G/DL 12/12/2021 1:22 PM [facility] RDW 12.8 12.4 - 15.1 % 12/12/2021 1:22 PM [facility] PLT 327 151 - 353 x10'3/uL 12/12/2021 1:22 PM [facility] MPV 9.7 9.6 - 12.0 FL 12/12/2021 1:22 PM [facility] RBC MORPHOLOGY NORMAL 12/12/2021 1:22 PM [facility] PLT MORPH. NORMAL 12/12/2021 1:22 PM [facility] WBC MORPHOLOGY NORMAL 12/12/2021 1:22 PM [facility] LYMPHOCYTES % 11.4(L) 15.8 - 45.0 % 12/12/2021 1:22 PM [facility] NEUTROPHILS % 80.1(H) 42.1 - 71.9 % 12/12/2021 1:22 PM CDT [facility] MONOCYTES % 5.4(L) 5.7 - 12.5 % 12/12/2021 1:22 PM CDT [facility] EOSINOPHILS 2.5 0.0 - 5.6 % 12/12/2021 1:22 PM CDT [facility] BASOPHILS 0.3 0.0 - 1.3 % 12/12/2021 1:22 PM CDT [facility] ABS. NEUTROPHILS 8.06(H) 1.40 - 6.00 x10'3/uL 12/12/2021 1:22 PM CDT [facility] IMMATURE GRANS % 0.3 0.0 - 0.5 % 12/12/2021 1:22 PM CDT [facility] ABS. LYMPHOCYTES 1.15 0.80 - 4.70 x10'3/uL 12/12/2021 1:22 PM CDT [facility] 12/12/2021 12:4 5 PM CDT us Jacquie Fair FINISHED METAL REPAIRER LABORATORY Final Res ult [facility] [address] [place] [address], * CORONAVIRUS (COVID 19) PCR ([facility]) (12/12/2021 12:19 PM CDT) SPEC DESCRIPTION NASAL 12/13/19 12:20 PM CDT [facility] CORONAVIRUS SARS COV 2 PCR (RESP) NEGATIVE NEGATIVE 12/13/2021 1:56 PM CDT [facility] Comment: THE SARS-CoV-2 TEST HAS BEEN AUTHORIZED BY THE FDA UNDER AN EUA FOR USE BY AUTHORIZED LABORATORIES. PERFORMED BY NUCLEIC ACID AMPLIFICATION PCR FIRST TEST NO 12/12/2021 12:20 PM CDT [facility] EMPLOYED IN HEALTHCARE NO 12/12/2021 12:20 PM CDT [facility] SYMPTOMATIC DEFINED BY CDC YES 12/12/2021 12:20 PM CDT [facility] DATE OF SYMPTOM ONSET 2021112112/12/2021 12:20 PM CDT [facility] HOSPITALIZATION STATUS NO 12/12/2021 12:20 PM CDT [facility] PATIENT IN ICU NO 12/12/2021 12:20 PM CDT [facility] RESIDENT OF [facility] NO 12/12/2021 12:20 PM CDT [facility] NOT 12/12/2021 12:20 PM CDT [facility] NASOPHARYNGEAL SWAB / Unknown 12/12/2021 12:19 PM CDT Jacquie Fair FINISHED METAL REPAIRER MICROBIOLOGY - GENERAL OR DERABLES Final Result [facility] [address] [place] [address], [place] [phone] * CORONAVIRUS (COVID-19) INFLUENZA A & B ANTIGEN IA PANEL (12/12/2021) CORONAVIRUS ANTIGEN IA NEGATIVE NEGATIVE [address] [place] INFLUENZA A NEGATIVE NEGATIVE [address] [place] INFLUENZA B NEGATIVE NEGATIVE [address] [place] Internal Control: VALID VALID [address] [place] NASAL STRUCTURE / Unknown 12/12/2021 Jacquie Fair FINISHED METAL REPAIRER MICROBIOLOGY - GENERAL OR DERABLES Final Result [address] [place] [address] [place] [address], [place] [phone] * RESP SYNCYTIAL VIRUS (12/12/2021) RSV NEGATIVE NEGATIVE [address] [place] Internal Control: VALID VALID [address] [place] NASOPHARYNGEAL SWAB / Unknown 12/12/2021 Jacquie Fair FINISHED METAL REPAIRER MICROBIOLOGY - GENERAL OR DERABLES Final Result [address] [place] [address] [facility] [address] [place] [address], documented in this encounter Visit Diagnoses Diagnosis Upper respiratory tract infection, unspecified type Acute cough Community acquired pneumonia, unspecified laterality Wheezing Upper respiratory tract infection, unspecified type Acute cough documented in this encounter Additional Health Concerns Infection Onset Date Last Indicated Resolved Time COVID-19 Rule Out 12/12/2021 12/12/2021 12/12/2021 12:16 PM CDT COVID-19 Rule Out 12/12/2021 12/12/2021 12/13/2021 1:56 PM CDT Assessment Noted Time PHQ-9 Depression Total Score: 0 02/29/20 9:14 AM WHITE WORK CLEANER documented as of this encounter Care Teams Educational Technician Relationship Specialty Start Date End Date Jacquie Fair NP [address] [place] [address] PCP - General NURSE PRACTITIONER 06/20/21 documented as of this encounter
--- OUTSIDE RECORDS SUMMARY | 2024-02-27 09:34 | XMS_ITS | Encounter Summary ---
Author Organization [facility] Address [address] [place] [address]. [place] [address] [place] [address] Care Team Providers Care Spud Driller Name Role Phone Jacquie Fair NP Primary Care Provider [phone] Encounter Details Date Type Department Care Team (Latest Contact Info) Description 12/12/2021 Travel Social History Tobacco Use Types Packs/Day [...] on file Legal Sex Female 9:41 PM HEAD CASHIER Gender Identity Female 04/24/2021 2:22 PM HEAD CASHIER Sexual Orientation Choose not to disclose 2021 2:22 PM HEAD CASHIER COVID-19 Exposure Response Date Recorded In the [...] 12:16 PM CDT COVID-19 Rule Out 12/12/2021 12/12/202112/1312/13/2021 1:56 PM CDT Assessment Noted Time PHQ-9 Depression Total Score: 0 02/29/20 21 9:14 AM HEAD CASHIER documented as of this encounter Care Teams Spud Driller Relationship Specialty Start Date End Date Jacquie Fair NP [address] [place] [address] PCP - General NURSE PRACTITIONER 06/20/21 documented as of this encounter
--- OUTSIDE RECORDS SUMMARY | 2024-02-27 09:34 | XMS_ITS | Encounter Summary ---
Author Organization [facility] Address [address] [place] [address]. [place] [address] [place] [address] Care Team Providers Care Inspector Exhaust Emissions Name Role Phone Jacquie Fair NP Primary Care Provider [phone] Encounter Details Date Type Department Care Team (Latest Contact Info) Description 08/13/2021 Travel Social History Tobacco Use Types Packs/Day [...] please move on to questions 3-9 0 02/28/2021 Comments No Sex and Gender Information Value Date Recorded Sex Assigned at Not on file Legal Sex Female 9:41 PM CONTROL CLERK [employer]OD [employer]EVERAGE Gender Identity Female 04/24/2021 2:22 PM CONTROL CLERK [employer]EVERAGE Sexual Orientation Choose not to disclose 2021 2:22 PM CONTROL CLERK [employer] COVID-19 Exposure Response Date Recorded In the [...] Depression Total Score: 0 02/29/20 9:14 AM CONTROL CLERK [employer]EVERAGE documented as of this encounter Care Teams Inspector Exhaust Emissions Relationship Specialty Start Date End Date Jacquie Fair NP [address] [facility] [address] [place] [address] PCP - General NURSE PRACTITIONER 06/20/21 documented as of this encounter
--- OUTSIDE RECORDS SUMMARY | 2024-02-27 09:34 | XMS_ITS | Encounter Summary ---
Author Organization [facility] Address [address] [place] [address]. [place] [address] [place] [address] Care Team Providers Care Dip Lube Operator Name Role Phone Jacquie Fair NP Primary Care Provider [phone] -[phone] Reason for Visit * Reason Comments Lab (SCAN) Encounter Details Date Type Department Care Team (Latest Contact Info) Description 01/16/2022 Scan HEALTH INFO SRVCS Scanned, Doc Med [...] on file Legal Sex Female 9:41 PM APPRENTICE FUNERAL DIRECTOR Gender Identity Female 04/24/2021 2:22 PM APPRENTICE FUNERAL DIRECTOR Sexual Orientation Choose not to disclose 2021 2:22 PM APPRENTICE FUNERAL DIRECTOR documented as of this encounter Plan of Treatment Not on file documented as of this encounter Procedures Procedure Name Priority Date/Time Associated Diagnosis Comments OUTSIDE LAB (SCAN ORDER) 01/16/2022 OUTSIDE LAB (SCAN ORDER) 01/16/2022 documented in this encounter Results * OUTSIDE LAB (SCAN) (01/16/2022) 01/16/2022 [facility] Scanned SCANNING Final Resu lt * OUTSIDE LAB (SCAN) (01/16/2022) 01/16/2022 us [employer] [facility] Scanned SCANNING Final Resu lt documented in this encounter Visit Diagnoses Not on filedocumented in this encounter Additional Health Concerns Assessment Noted Time PHQ-9 Depression Total Score: 0 02/29/20 21 9:14 AM APPRENTICE FUNERAL DIRECTOR documented as of this encounter Care Teams Dip Lube Operator Relationship Specialty Start Date End Date Jacquie Fair NP [address] [place] [address] PCP - General NURSE PRACTITIONER 06/20/21 documented as of this encounter
--- OUTSIDE RECORDS SUMMARY | 2024-02-27 09:34 | XMS_ITS | Encounter Summary ---
Author Organization [facility] Address [address] [place] [address]. [place] [address] [place] [address] Care Team Providers Care Supervisor [employer]er Farm Name Role Phone Jacquie Fair NP Primary Care Provider [phone] [phone] Encounter Details Date Type Department Care Team (Latest Contact Info) Description 12/12/2021 12:30 PM CDT - 12/12/2021 11:59 PM CDT Hospital Encounter [facility] [address] [place] [address] Jacquie Fair, DE ALCHOLIZER [address] [place], [place] [address] Discharge Disposition: Home or Self Care (Routine [...] on file Legal Sex Female 9:41 PM ELECTRICAL DISCHARGE MACHINE OPERATOR Gender Identity Female 04/24/2021 2:22 PM ELECTRICAL DISCHARGE MACHINE OPERATOR Sexual Orientation Choose not to disclose 2021 2:22 PM ELECTRICAL DISCHARGE MACHINE OPERATOR COVID-19 Exposure Response Date Recorded [...] of breath. 8.5 g 3 12/12/2021 4 benzonatate (TESSALON PERLES) 100 MG capsuleIndication s:Acute cough Take 1 capsule (100 mg total) by mouth 3 (three) times daily as needed for Cough. 20 capsule 12/12/2021 2 Cyanocobalamin (VITAMIN B-12 OR) 02 3 DULoxetine 60 MG capsuleIndication s:Seasonal depression (CMS/HCC) Take 1 capsule (60 mg total) by mouth daily. 90 capsule 07/25/2021 2 ferrous sulfate, 65 mg elemental, 325 (65 FE) MG tablet 3 levoFLOXacin (LEVAQUIN) 750 MG tabletIndications :Upper respiratory tract infection, unspecified type,Acute cough Take 1 tablet (750 mg total) by mouth daily for 10 days. 10 tablet 12/12/2021 2 predniSONE (DELTASONE) 20 MG tabletIndications :Upper respiratory tract infection, unspecified type,Acute cough Take 1 tablet (20 mg total) by mouth daily for 5 days. 5 tablet 12/12/2021 2 documented as of this encounter Plan of Treatment Not on file documented as of this encounter Procedures Procedure Name Priority Date/Time Associated Diagnosis Comments XR CHEST PA+LAT STAT 12/12/2021 1:03 PM CDT Upper respiratory tract infection, unspecified [...] Kiki Loyola, 12/12/2021 1:08 PM Jacquie Fair NP GENERAL IMAGING Final Res ult documented in this encounter Visit Diagnoses Diagnosis Upper respiratory tract infection, unspecified type Acute cough documented in this encounter Additional Health Concerns Infection Onset Date Last Indicated Resolved Time COVID-19 Rule Out 12/12/2021 12/12/2021 12/13/2021 1:56 PM CDT Assessment Noted Time PHQ-9 Depression Total Score: 0 02/29/20 21 9:14 AM ELECTRICAL DISCHARGE MACHINE OPERATOR documented as of this encounter Care Teams Supervisor [employer]er Farm Relationship Specialty Start Date End Date Jacquie Fair NP [address] [place] [address] PCP - General NURSE PRACTITIONER 06/20/21 documented as of this encounter
--- OUTSIDE RECORDS SUMMARY | 2024-02-27 09:34 | XMS_ITS | Encounter Summary ---
Author Organization [facility] Address [address] [place] [address]. [place] [address] [place] [address] Care Team Providers Care Timber Estimator Name Role Phone Jacquie Fair NP Primary Care Provider [phone] [phone] Encounter Details Date Type Department Care Team (Latest Contact Info) Description 10/04/2021 Travel Social History Tobacco Use Types Packs/Day [...] on file Legal Sex Female 9:41 PM BRAND AMBASSADOR PROMOTIONAL MODEL Gender Identity Female 04/24/2021 2:22 PM BRAND AMBASSADOR PROMOTIONAL MODEL Sexual Orientation Choose not to disclose 2021 2:22 PM BRAND AMBASSADOR PROMOTIONAL MODEL COVID-19 Exposure Response Date Recorded In the [...] Total Score: 0 02/29/20 21 9:14 AM BRAND AMBASSADOR PROMOTIONAL MODEL documented as of this encounter Care Teams Timber Estimator Relationship Specialty Start Date End Date Jacquie Fair NP [address] [facility] [address] [place] [address] PCP - General NURSE PRACTITIONER 06/20/21 documented as of this encounter
--- OUTSIDE RECORDS SUMMARY | 2024-02-27 09:34 | XMS_ITS | Encounter Summary ---
Author Organization [facility] Address [address] [place] [address]. [place] [address] [place] [address] Care Team Providers Care Radiology Clerk Name Role Phone Jacquie Fair NP Primary Care Provider [phone] [phone] Reason for Visit * Reason Onset Date Comments Follow Up Call 12/15/2021 Encounter Details Date Type Department Care Team (Late st Contact Info) Description 12/15/2021 Telephone [facility] Family Medicine - [place] [address] [facility] [address] [place] [id number] Jacquie Fair, TRICIA [address] [place], [place] [address] Follow Up Call Social History Tobacco Use Types Packs/Day Years [...] file Legal Sex Female 9:41 PM SALESPERSON HANDBAGS Gender Identity Female 04/24/2021 2:22 PM SALESPERSON HANDBAGS Sexual Orientation Choose not to disclose 2021 2:22 PM SALESPERSON HANDBAGS COVID-19 Exposure Response Date Recorded In the last 10 days, have yo u been in contact with someone who was confirmed or suspected to have Coronavirus/COVID-19? No / Unsure 12/12/2021 11:06 AM CDT documented as of this encounter Progress Notes * Marley Bills MA - 12/15/2021 12:56 PM CDT Letter written signed and faxed to patient. * Jacquie Fair NP - 12/15/2021 12:45 PM CDT Sounds good. * Marley Bills MA - 12/15/2021 12:09 PM CDT Patient infomed and she is needing a work note starting 12/12/21 and she will return on Saturday12/18/21. Fax to number [phone] * Marley Bills MA - 12/15/2021 11:51 AM CDT Lmovm to call office * Jacquie Fair NP - 12/15/2021 11:47 AM CDTAddended by: JACQUIE FAIR on: 12/15/2021 11:47 AM Modules accepted: Orders * Jacquie Fair NP - 12/15/2021 11:46 AM CDT Also have her follow up next week if still not better. * Jacquie Fair NP - 12/15/2021 11:45 AM CDT Ok I want to try her on an inhaled steroid with a long acting beta agonist( which is a longer acting of albuterol) Have pt use as directed and to rinse her mouth out after each use to prevent thrush. * Marley Bills MA - 12/15/2021 9:48 AM CDT Spoke with patient to see how she was doing from her prior vist 12/12/21 for URI. She is taking allthe medication Levaquin, prednisone, Tessalon Perles, and Albuterol. She is still coughing quite a bit her phlegm seems thinner. But she is still having all the symptoms documented in this encounter Plan of Treatment Not on file documented as of this encounter Visit Diagnoses Diagnosis Upper respiratory tract infection, unspecified type- Primary Acute cough documented in this encounter Additional Health Concerns Assessment Noted Time PHQ-9 Depression Total Score: 0 02/29/20 21 9:14 AM SALESPERSON HANDBAGS documented as of this encounter Care Teams Radiology Clerk Relationship Specialty Start Date End Date Jacquie Fair NP [address] [place] [address] PCP - General NURSE PRACTITIONER 06/20/21 documented as of this encounter
--- OUTSIDE RECORDS SUMMARY | 2024-02-27 09:34 | XMS_ITS | Encounter Summary ---
Author Organization [facility] Address [address] [place] [address]. [place] [address] [place] [address] Care Team Providers Care Director Toxicology Name Role Phone Jacquie Fair NP Primary Care Provider [phone] [phone] Reason for Visit * Reason Onset Date Comments Medication 12/12/2021 Encounter Details Date Type Department Care Team (Late st Contact Info) Description 12/12/2021 Telephone [facility] Family Medicine - [place] [address] [facility] [address] [place] [phone] Jacquie Fair, TRICIA [address] [place] [address] Medication Social History Tobacco Use Types Packs/Day Years [...] on file Legal Sex Female 9:41 PM DEPUTY GENERAL COUNSEL Gender Identity Female 04/24/2021 2:22 PM DEPUTY GENERAL COUNSEL Sexual Orientation Choose not to disclose 2021 2:22 PM DEPUTY GENERAL COUNSEL COVID-19 Exposure Response Date Recorded In the last 10 days, have yo u been in contact with someone who was confirmed or suspected to have Coronavirus/COVID-19? No / Unsure 12/12/2021 11:06 AM CDT documented as of this encounter Progress Notes * Jacquie Fair NP - 12/12/2021 3:10 PM CDT Ok I will do that then. * Hailey Aldana - 12/12/2021 3:08 PM CDT Shagufta called in because her pharmacy is out of the inhaler. When asked if she wanted it sent to a different pharmacy she said that you had mentioned oral steroids instead and she said she is ok with that. documented in this encounter Plan of Treatment Not on file documented as of this encounter Visit Diagnoses Not on filedocumented in this encounter Additional Health Concerns Infection Onset Date Last Indicated Resolved Time COVID-19 Rule Out 12/12/2021 12/12/2021 12/12/2021 12:16 PM CDT COVID-19 Rule Out 12/12/2021 12/12/2021 12/13/2021 1:56 PM CDT Assessment Noted Time PHQ-9 Depression Total Score: 0 02/29/20 21 9:14 AM DEPUTY GENERAL COUNSEL documented as of this encounter Care Teams Director Toxicology Relationship Specialty Start Date End Date Jacquie Fair NP [address] [place] [address] PCP - General NURSE PRACTITIONER 06/20/21 documented as of this encounter
--- OUTSIDE RECORDS SUMMARY | 2024-02-27 09:34 | XMS_ITS | Encounter Summary ---
Author Organization [facility] Address [address] [place] [address]. [place] [address] [place] [address] Care Team Providers Care Director Educational Radio Name Role Phone Jacquie Fair NP Primary Care Provider [phone] [phone] Encounter Details Date Type Department Care Team (Latest Contact Info) Description 04/13/2022 Travel Social History Tobacco Use Types Packs/Day [...] on file Legal Sex Female 9:41 PM PROTECTION MGR Gender Identity Female 04/24/2021 2:22 PM PROTECTION MGR Sexual Orientation Choose not to disclose 2021 2:22 PM PROTECTION MGR COVID-19 Exposure Response Date Recorded In the last 10 days, have yo u been in contact with someone who was confirmed or suspected to have Coronavirus/COVID-19? No / Unsure 04/13/2022 8:05 AM PROTECTION MGR documented as of this encounter Plan of Treatment Not on file documented as of this encounter Visit Diagnoses Not on filedocumented in this encounter Additional Health Concerns Assessment Noted Time PHQ-9 Depression Total Score: 14 023 8:28 AM PROTECTION MGR documented as of this encounter Care Teams Director Educational Radio Relationship Specialty Start Date End Date Jacquie Fair NP [address] [place] [address] PCP - General NURSE PRACTITIONER 06/20/21 documented as of this encounter
--- OUTSIDE RECORDS SUMMARY | 2024-02-27 09:34 | XMS_ITS | Encounter Summary ---
Author Organization [facility] Address [address] [place] [address]. [place] [address] [place] [address] Care Team Providers Care Back Facer Name Role Phone Jacquie Fair NP Primary Care Provider +1 [phone] Encounter Details Date Type Department Care Team (Latest Contact Info) Description 01/31/2022 Scan [facility] HEALTH INFO SRVCS Scanned, Doc [...] on file Legal Sex Female 9:41 PM MEDICAL MANAGER Gender Identity Female 04/24/2021 2:22 PM MEDICAL MANAGER Sexual Orientation Choose not to disclose 2021 2:22 PM MEDICAL MANAGER documented as of this encounter Plan of Treatment Not on file documented as of this encounter Visit Diagnoses Not on filedocumented in this encounter Additional Health Concerns Assessment Noted Time PHQ-9 Depression Total Score: 0 02/29/20 21 9:14 AM MEDICAL MANAGER documented as of this encounter Care Teams Back Facer Relationship Specialty Start Date End Date Jacquie Fair, TRICIA [address] [place] [address] PCP - General NURSE PRACTITIONER 06/20/21 documented as of this encounter
--- OUTSIDE RECORDS SUMMARY | 2024-02-27 09:34 | XMS_ITS | Encounter Summary ---
Author Organization [facility] Address [address] [place] [address]. [place] [address] [place] [address] Care Team Providers Care Museum Exhibit Technician Name Role Phone Jacquie Fair NP Primary Care Provider +1 -[phone] Encounter Details Date Type Department Care Team (Latest Contact Info) Description 10/17/2021 Scan [facility] HEALTH INFO SRVCS Scanned, Documents [...] on file Legal Sex Female 9:41 PM CATHEAD WORKER Gender Identity Female 04/24/2021 2:22 PM CATHEAD WORKER Sexual Orientation Choose not to disclose 2021 2:22 PM CATHEAD WORKER COVID-19 Exposure Response Date Recorded In [...] Total Score: 0 02/29/20 21 9:14 AM CATHEAD WORKER documented as of this encounter Care Teams Museum Exhibit Technician Relationship Specialty Start Date End Date Jacquie Fair, TRICIA [address] [place] [address] PCP - General NURSE PRACTITIONER 06/20/21 documented as of this encounter
--- OUTSIDE RECORDS SUMMARY | 2024-02-27 09:34 | XMS_ITS | Encounter Summary ---
Author Organization [facility] Address [address] [place] [address]. [place] [address] [place] [address] Care Team Providers Care Tub Rider Name Role Phone Jacquie Fair NP Primary Care Provider +1 -[phone] Encounter Details Date Type Department Care Team (Latest Contact Info) Description 12/12/2021 12:29 PM CDT Hospital Encounter [facility] [address] [place], [place] [phone] Jacquie Fair, TRICIA [address] [place], [place] [phone] Discharge Disposition: Home or Self Care (Routine [...] on file Legal Sex Female 9:41 PM SPRAYER HAND Gender Identity Female 04/24/2021 2:22 PM SPRAYER HAND Sexual Orientation Choose not to disclose 2021 2:22 PM SPRAYER HAND COVID-19 Exposure Response Date Recorded In the [...] Procedure Name Priority Date/Time Associated Diagnosis Comments CULTURE, BACTERIA, BLOOD STAT 12/12/2021 12:50 PM CDT Upper respiratory tract infection, unspecified type Acute cough PROCALCITONIN (PCT) STAT 12/12/2021 1 2:45 PM CDT Upper respiratory tract infection, unspecified type Acute cough SED RATE, ERYTHROCYTE (ESR) STAT 12/12/2021 12:45 PM CDT Upper respiratory tract infection, unspecified type Acute cough COMPREHENSIVE METABOLIC PANEL STAT 12/12/2021 12:45 PM CDT Upper respiratory tract infection, unspecified type Acute cough C-REACTIVE PROTEIN STAT 12/12/2021 12 :45 PM CDT Upper respiratory tract infection, unspecified type Acute cough CULTURE, BACTERIA, BLOOD STAT 12/12/2021 12:45 PM CDT Upper respiratory tract infection, unspecified type Acute cough CBC W/DIFF AUTOMATED STAT 12/12/2021 12:45 PM CDT Upper respiratory tract infection, unspecified type Acute cough documented in this encounter Results * CULTURE, BACTERIA, BLOOD (12/12/2021 12:50 PM CDT) SPEC DESCRIPTION BLOOD 12/12/2021 12:46 PM CDT [facility] SPECIAL REQUESTS NO SPECIAL REQUEST 12/12/2021 12:46 PM CDT [facility] CULTURE RESULT NO GROWTH 5 DAYS 12/17/2021 1:02 AM CDT [facility] BLOOD SPECIMEN OBTAINED FOR BLOOD CULTURE / Unknown 12/12/2021 12:50 PM CDT 12/12/2021 12:51 PM CDT Jacquie Fair NP MICROBIOLOGY - GENERAL OR DERABLES Final Result [facility] [address] [place] [address], * PROCALCITONIN (PCT) (12/12/2021 12:45 PM CDT) [facility] Procalcitonin <0.05 0.00 - 0.25 NG/ML 12/12/2021 2:05 PM CDT [facility] Comment: PROCALCITONIN INTERPRETATION GUIDELINES LOWER RESPIRATORY [...] IS RECOMMENDED. 12/12/2021 12:4 5 PM CDT Jacquie Fair DEPUTY DIRECTOR OF NURSING LABORATORY Final Res ult Performing Organization Address [facility] de Phone Number [facility] [address] [place] [address], [place] [phone] * (ABNORMAL) C-REACTIVE PROTEIN (12/12/2021 12:45 PM CDT) C-REACTIVE PROTEIN 2.10(H) <0.9 mg/dL 12/12/2021 1:39 PM CDT [facility] 12/12/2021 12:4 5 PM CDT Jacquie Fair DEPUTY DIRECTOR OF NURSING LABORATORY Final Res ult Performing Organization Address [facility] de Phone Number [facility] [address] [place] [address], [place] [phone] * (ABNORMAL) SED RATE, ERYTHROCYTE (ESR) (12/12/2021 12:45 PM CDT) ESR 26(H) 0 - 20 MM/HR 12/12/2021 1:43 PM CDT [facility] 12/12/2021 12:4 5 PM CDT Jacquie Fair DEPUTY DIRECTOR OF NURSING LABORATORY Final Res ult Performing Organization Address [facility] de Phone Number [facility] [address] [place] [address], * CULTURE, BACTERIA, BLOOD (12/12/2021 12:45 PM CDT) SPEC DESCRIPTION BLOOD 12/12/2021 12:43 PM CDT [facility] SPECIAL REQUESTS NO SPECIAL REQUEST 12/12/2021 12:43 PM CDT [facility] CULTURE RESULT NO GROWTH 5 DAYS 12/17/2021 1:02 AM CDT [facility] BLOOD SPECIMEN OBTAINED FOR BLOOD CULTURE / Unknown 12/12/2021 12:45 PM CDT 12/12/2021 12:46 PM CDT Jacquie Fair NP MICROBIOLOGY - GENERAL OR DERABLES Final Result Performing Organization Address [facility] de Phone Number [facility] [address] [place] [address], * COMPREHENSIVE METABOLIC PANEL (12/12/2021 12:45 PM CDT) Pathologist [facility] GLUCOSE 90 70 - 99 MG/DL 12/12/2021 1:39 PM CDT [facility] BUN 7 7 - 18 MG/DL 12/12/2021 1:39 PM CDT [facility] CREATININE S/P/B 0.75 0.55 - 1.02 MG/DL 12/12/2021 1:39 PM CDT [facility] SODIUM S/P/B 139 136 - 145 MMOL/L 12/12/2021 1:39 PM CDT [facility] POTASSIUM S/P/B 3.7 3.5 - 5.1 MMOL/L 12/12/2021 1:39 PM CDT [facility] CHLORIDE S/P/B 102 100 - 108 MMOL/L 12/12/2021 1:39 PM [facility] CO2 27.6 21 - 32 MMOL/L 12/12/2021 1:39 PM [facility] CALCIUM S/P/B 8.8 8.5 - 10.1 MG/DL 12/12/2021 1:39 PM [facility] BILIRUBIN TOTAL S/P/B 0.3 0.2 - 1.2 MG/DL 12/12/2021 1:39 PM [facility] TOTAL PROTEIN S/P/B 7.4 6.4 - 8.2 G/DL 12/12/2021 1:39 PM [facility] ALBUMIN S/P/B 4.1 3.4 - 5.0 G/DL 12/12/2021 1:39 PM [facility] AST 23 15 - 37 U/L 12/12/2021 1:39 PM [facility] ALT 26 14 - 55 U/L 12/12/2021 1:39 PM [facility] ALKALINE PHOSPHATASE S/P/B 55 50 - 136 U/L 12/12/2021 1:39 PM [facility] ANION GAP 9.4 5 - 15 MMOL/L 12/12/2021 1:39 PM [facility] BUN CREATININE RATIO 9.3 6 - 26 12/12/2021 1:39 PM [facility] A/G RATIO 1.2 1.0 - 2.0 RATIO 12/12/2021 1:39 PM [facility] GFR ESTIMATE >90 >90 ML/MIN/1.7 3 M2 12/12/2021 1:39 PM [facility] Comment: NOTE: eGFR is not calculated for patients <18 years of age. This is an estimated GFR calculation using the new CKD EPI creatinine equation without race and so does not require a correction factor for race. This estimated GFR should not be used for calculating drug doses. 12/12/2021 12:4 5 PM CDT us Jacquie Fair DEPUTY DIRECTOR OF NURSING LABORATORY Final Res ult [facility] [address] [place] [address], [place] [phone] * (ABNORMAL) CBC W/DIFF AUTOMATED (12/12/2021 12:45 PM CDT) WBC 10.1 4.4 - 11.0 x10'3/uL 12/12/2021 1:22 PM CDT [facility] RBC 3.89(L) 4.50 - 5.10 x10'6/uL 12/12/2021 1:22 PM CDT [facility] HGB 11.8(L) 12.3 - 15.3 G/DL 12/12/2021 1:22 PM CDT [facility] HCT 34.7(L) 35.9 - 44.6 % 12/12/2021 1:22 PM CDT [facility] MCV 89.2 80.0 - 96.0 FL 12/12/2021 1:22 PM CDT [facility] MCH 30.3 25.3 - 30.9 PG 12/12/2021 1:22 PM CDT [facility] MCHC 34.0 31.0 - 34.1 G/DL 12/12/2021 1:22 PM CDT [facility] RDW 12.8 12.4 - 15.1 % 12/12/2021 1:22 PM CDT [facility] PLT 327 151 - 353 x10'3/uL 12/12/2021 1:22 PM CDT [facility] MPV 9.7 9.6 - 12.0 FL 12/12/2021 1:22 PM CDT [facility] RBC MORPHOLOGY NORMAL 12/12/2021 1:22 PM CDT [facility] PLT MORPH. NORMAL 12/12/2021 1:22 PM CDT [facility] WBC MORPHOLOGY NORMAL 12/12/2021 1:22 PM CDT [facility] LYMPHOCYTES % 11.4(L) 15.8 - 45.0 % 12/12/2021 1:22 PM CDT [facility] NEUTROPHILS % 80.1(H) 42.1 - 71.9 % 12/12/2021 1:22 PM CDT [facility] MONOCYTES % 5.4(L) 5.7 - 12.5 % 12/12/2021 1:22 PM CDT [facility] EOSINOPHILS 2.5 0.0 - 5.6 % 12/12/2021 1:22 PM CDT [facility] BASOPHILS 0.3 0.0 - 1.3 % 12/12/2021 1:22 PM CDT [facility] ABS. NEUTROPHILS 8.06(H) 1.40 - 6.00 x10'3/uL 12/12/2021 1:22 PM CDT [facility] IMMATURE GRANS % 0.3 0.0 - 0.5 % 12/12/2021 1:22 PM CDT [facility] ABS. LYMPHOCYTES 1.15 0.80 - 4.70 x10'3/uL 12/12/2021 1:22 PM CDT [facility] 12/12/2021 12:4 5 PM CDT us Jacquie Fair DEPUTY DIRECTOR OF NURSING LABORATORY Final Res ult [facility] [address] [place] [address], documented in this encounter Visit Diagnoses Diagnosis Upper respiratory tract infection, unspecified type Acute cough documented in this encounter Additional Health Concerns Infection Onset Date Last Indicated Resolved Time COVID-19 Rule Out 12/12/2021 12/12/2021 12/13/2021 1:56 PM CDT Assessment Noted Time PHQ-9 Depression Total Score: 0 02/29/20 21 9:14 AM SPRAYER HAND documented as of this encounter Care Teams Tub Rider Relationship Specialty Start Date End Date Jacquie Fair, TRICIA [address] [place] [address] PCP - General NURSE PRACTITIONER 06/20/21 documented as of this encounter
--- OUTSIDE RECORDS SUMMARY | 2024-02-27 09:35 | XMS_ITS | Encounter Summary ---
Author Organization [facility] Address [address] [place] [address]. [place] [address] [place] [address] Care Team Providers Care Dry Kiln Operator Helper Name Role Phone John Pinedo MD Primary Care Provider [phone] Jacquie Fair NP Primary Care Provider [phone] Reason for Visit * Reason Comments Cytology reports (SCAN) Encounter Details Date Type Department Care Team ([facility] Contact Info) Description 12/01/2019 Scan HEALTH INFO SRVCS Scanned, Documents Cytology reports (SCAN) Social History Tobacco Use Types Packs/Day Years Used Date Smoking Tobacco: Never Assessed PHQ-2 Answer Date Recorded PHQ-2 Score - If the patient scores above 3, please move on to questions 3-9 0 08/16/2021 Comments Unknown Sex and Gender Information Value Date Recorded Sex Assigned at Not on file Legal Sex Female 9:41 PM PEANUT SORTER Gender Identity Female 04/24/2021 2:22 PM PEANUT SORTER Sexual Orientation Choose not to disclose 2021 2:22 PM PEANUT SORTER COVID-19 Exposure Response Date Recorded In the last 10 days, have yo u been in contact with someone who was confirmed or suspected to have Coronavirus/COVID-19? No / Unsure 08/16/2021 12:09 PM CDT documented as of this encounter Plan of Treatment Not on file documented as of this encounter Procedures Procedure Name Priority Date/Time Associated Diagnosis Comments OUTSIDE CYTOPATH CERV/VAG IN TERPRET (PAP) Routine 12/01/2019 documented in this encounter Results * PAP SMEAR WITH HPV (12/01/2019) 12/01/2019 us Documents Scanned SCANNING Final Result [facility] documented in this encounter Visit Diagnoses Not on filedocumented in this encounter Care Teams Dry Kiln Operator Helper Relationship Specialty Start Date End Date John Pinedo MD PCP - General INTERNAL MEDICINE 02/28/21 05/28/21 Jacquie Fair NP [address] [place] [address] PCP - General NURSE PRACTITIONER 06/20/21 documented as of this encounter
--- OUTSIDE RECORDS SUMMARY | 2024-02-27 09:35 | XMS_ITS | Encounter Summary ---
Author Organization [facility] Address [address] [place] [address]. [place], [place] [address] [place] [address] Care Team Providers Care Handbell Choir Director Name Role Phone John Pinedo MD Primary Care Provider [phone] Encounter Details Date Type Department Care Team (Latest Contact Info) Description 05/23/2021 Travel Social History Tobacco Use Types Packs/Day Years Used Date Smoking Tobacco: Some Days Cigarettes Smokeless Tobacco: Never Alcohol Use Standard [...] on file Legal Sex Female 9:41 PM HAND PROFILER Gender Identity Female 04/24/2021 2:22 PM HAND PROFILER Sexual Orientation Choose not to disclose 2021 2:22 PM HAND PROFILER COVID-19 Exposure Response Date Recorded In the last 10 days, have yo u been in contact with someone who was confirmed or suspected to have Coronavirus/COVID-19? No / Unsure 05/23/2021 8:07 AM CDT documented as of this encounter Plan of Treatment Not on file documented as of this encounter Visit Diagnoses Not on filedocumented in this encounter Additional Health Concerns Assessment Noted Time PHQ-9 Depression Total Score: 0 02/29/20 9:14 AM HAND PROFILER documented as of this encounter Care Teams Handbell Choir Director Relationship Specialty Start Date End Date John Pinedo MD PCP - General INTERNAL MEDICINE 02/28/21 05/28/21 documented as of this encounter
--- OUTSIDE RECORDS SUMMARY | 2024-02-27 09:35 | XMS_ITS | Encounter Summary ---
Author Organization [facility] Address [address] [place] [address]. [place] [address] [place] [address] Care Team Providers Care Forest Fire Specialist Supervisor Name Role Phone Jacquie Fair NP Primary Care Provider [phone] Reason for Visit * Reason Onset Date Comments Refill Request 07/25/2021 Encounter Details Date Type Department Care Team (Late st Contact Info) Description 07/25/2021 Telephone [facility] Family Medicine - [place] [address] [place] [id number] Jacquie Fair, TRICIA [address] [place], [place] [address] Refill Request Social History Tobacco Use Types [...] on file Legal Sex Female 9:41 PM CATEGORY DIRECTOR Gender Identity Female 04/24/2021 2:22 PM CATEGORY DIRECTOR Sexual Orientation Choose not to disclose 2021 2:22 PM CATEGORY DIRECTOR COVID-19 Exposure Response Date Recorded In the last 10 days, have yo u been in contact with someone who was confirmed or suspected to have Coronavirus/COVID-19? No / Unsure 07/04/2021 7:34 PM CDT documented as of this encounter Progress Notes * Blake White MA - 07/25/2021 10:47 AM CDT Last office visit at this office: Last visit with JACQUIE FAIR in FAMILY [facility]ACTICE was on: 07/05/2021 in [facility] Future appointment scheduled: Future Appointments Date Time Provider Department Center 08/16/2021 11:20 AM Garret John MD [facility] Sent refill to pharmacy * Hailey Aldana - 07/25/2021 8:09 AM CDT Refill request for duloxetine Sadiqarcadio Robersony documented in this encounter Plan of Treatment Not on file documented as of this encounter Visit Diagnoses Diagnosis Seasonal depression (CMS/HCC) Other specified episodic mood disorder documented in this encounter Additional Health Concerns Assessment Noted Time PHQ-9 Depression Total Score: 0 02/29/20 21 9:14 AM CATEGORY DIRECTOR documented as of this encounter Care Teams Forest Fire Specialist Supervisor Relationship Specialty Start Date End Date Jacquie Fair NP [address] [place] [address] PCP - General NURSE PRACTITIONER 06/20/21 documented as of this encounter
--- OUTSIDE RECORDS SUMMARY | 2024-02-27 09:35 | XMS_ITS | Encounter Summary ---
Author Organization [facility] Address [address] [place] [address]. [place] [address] [place] [address] Care Team Providers Care Ap Operator Name Role Phone John Pinedo MD Primary Care Provider [phone] Reason for Visit * Reason Comments Neck Pain * Physical Medicine (Routine) - Closed Specialty Diagnoses / Procedures Referred By Contac t Referred To Contact [facility] Physical Therapy Diagnoses Chronic neck and back pain John Pinedo MD Phone: tel: fax: [facility] [address] [place] [address] Phone: tel: fax: Referral ID Status Reason Start Date Expiration Date V isits Requested Visits Authorized [id number] Closed Physical Therapy 02/28/2021 03/01/2022 99 99 Encounter Details Date Type Department Care Team (Latest Contact Info) Description 03/09/2021 4:41 PM SENIOR CLINICIAN - 03/09/2021 11:59 PM SENIOR CLINICIAN Hospital Encounter [facility] [address] [place] [address] John Pinedo MD [address] [place] [address] [place] [address] [place] [address] Neck Pain Discharge Disposition: Home or Self Care (Routine [...] file Legal Sex Female 9:41 PM SENIOR CLINICIAN Gender Identity Female 04/24/2021 2:22 PM SENIOR CLINICIAN Sexual Orientation Choose not to disclose 2021 2:22 PM SENIOR CLINICIAN COVID-19 Exposure Response Date Recorded In the last month, have you been in contact with someone who was confirmed or suspected to have Coronavirus / COVID-19? No / Unsure 03/09/2021 4:41 PM SENIOR CLINICIAN documented as of this encounter Discharge Instructions * Patient Instructions* Libia oRmero, PT - 03/09/2021 5:00 PM SENIOR CLINICIAN Access Code: [email or web address] URL: [email or web address]/ Date: 03/09/2021 Prepared by: Libia Romero Exercises ?? Median Nerve Flossing - Tray - 2 x daily - 7 x weekly - 1 sets - 10 reps ?? Ulnar Nerve Flossing - 2 x daily - 7 x weekly - 1 sets - 10 reps ?? Seated Cervical Retraction - 3 x daily - 7 x weekly - 1 sets - 10 reps ?? Supine Chin Tuck - 3 x daily - 7 x weekly - 1 sets - 10 reps OR CLINICIAN documented in this encounter Medications at Time of Discharge diclofenac EC 50 MG tablet Take 1 tablet by mouth daily as needed. 11/04/2020 07/05/2021 DULoxetine 60 MG capsule Take 1 capsule by mouth daily. 10/18/2020 03/21/2021 ibuprofen 600 MG tablet Take by mouth as needed. 12/24/2020 07/05/2021 documented as of this encounter Progress Notes * Libia Romero, PT - 03/09/2021 5:00 PM CST 03/09/21 1800 Neck Disability Index SECTION 1: Pain Intensity 3 SECTION 2: Personal Care 0 SECTION 3: Lifting 1 SECTION 4: Reading 3 SECTION 5: Headaches 1 SECTION 6: Concentration 3 SECTION 7: Work 1 SECTION 8: Driving 2 SECTION 9: Sleeping 3 SECTION 10: Recreation 4 Neck Disability Total Score 21 OR CLINICIAN * Libia Romero, PT - 03/09/2021 5:00 PM CST INITIAL PHYSICAL THERAPY EVALUATION - CERVICAL Diagnosis: Chronic neck and back pain [M54.2, M54.9, G89.29] Personal Protective Equipment PPE Used During Visit: Therapist wore medical grade mask throughout session, Patient wore mask throughout session SUBJECTIVE Therapy Visit Visit Diagnosis: Chronic neck and back pain Referring Provider: John Pinedo MD Current Therapy Orders: eval and treat Date of Injury/Onset: 2009 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 Says there is an actual lump on the back left side of her head/neck. It hasbeen there for maybe 1.5 years. Her last PT thought it was a muscle. Just moved here about a month ago but was getting PT in [place]. Was having manual traction at her last PT clinic and says this really felt good. Does get N/T down her arms, has been happening for a few years. Notices it when shekeeps her elbows bent for a long time during surgery or reading a book. Now notices it mostly on the R thumb side of her forearm. Numbness happens in both pinkys that is pretty consistent unless her a juan r are completely straight. Does have low back pain frequently as well. Pain Current Pain Level: 6/10 Lowest Pain Level: 2/10 Highest Pain Level: 8/10 Activities That Increase Pain: turning the head, lifting Activities That Decrease Pain: traction, stretching out arms when they get numbness Location of Pain: neck Description of Pain: sharp, shooting Review With Patient Medication Reviewed: on file Diagnostics: none recent Patient stated goals for therapy: increase ROM and decrease pain OBJECTIVE Observation Other Observations: Pt pops multiple joints throughout session and displays generalized hypermobility. CERVICAL ROM in Degrees Flexion (0-45??): 75% Extension (0-45??): WFL Right side bending (0-45??): 25 Left side bending (0-45??): 20 Right rotation (0-80??): 55 Left rotation (0-80??): 48 Other (Comments): Pain in all directions reported. SHOULDER ROM Other (Comments): B shoulder AROM WFL throughout. Not painful. Flexibility Flexibility : Min tightness in B upper traps/lev scap SHOULDER STRENGTH Flexion Right: 4/5 Flexion Left: 4/5 ABDuction Right: 3+/5 ABDuction Left: 4-/5 CERVICAL STRENGTH Deltoid C5 Right: 3+/5 Deltoid C5 Left: 4-/5 Biceps C5 Right: 4+/5 Biceps C5 Left: 4+/5 Triceps C7 Right: 4+/5 Triceps C7 Left: 4+/5 Senior Marketing Engineer strength in pounds Right: Not assessed due to use of splint on R hand - pt going to hand surgeon in May SCAPULAR STRENGTH Mid trapezius Right: 3/5 Mid trapezius Left: 3/5 Low trapezius Right: 3/5 Low trapezius Left: 3/5 Rhomboids Right: 3+/5 Rhomboids Left: 3+/5 Other (Comments): in prone Dermatomes : Reports numbness in C6 dermatome distally Special Tests Upper Limb Tension Median: positive right (at 110* ABD) Radial: negative right Ulnar: positive right Special Tests Compression Tests Distraction: positive (decreased pain) Other Tests Functional/Disability Tool Score: NDI: 21/50 ASSESSMENT Assessment Note: Patient is 35 year old female with reports of neck pain that is chronic in nature. She has weakness throughout her cervical/scapular region. She also demonstrates hypermobility that may be creating instability in the cervical spine as well. CROM is limited due to pain and she had positive ULTT indicating neural tension. She would benefit from skilled PT to address these deficits and improvecomfort with work activities and ADLs. Therapy Diagnosis: neck pain Problem List: Decreased ROM, Decreased Strength, Limited Functional Activities, Pain Prognosis: Good, Fair PT EVAL COMPLEXITY PT - Personal Factors/Comorbidities Impacting Care: 3-4 personal factors/comorbidities PT - Examination of Body Systems: Moderate (3 or more Elements) PT - Clinical Presentation of Patient: Stable uncomplicated PT - Decision Making: Moderate PT Eval Moderate Complexity - Minutes - 71177: 45 Education Was Education Provided: Yes Topic: posture, dermatomes, ergonomics, PT POC, HEP Recipient: Patient Method: Demonstration, Verbal, Written, Return Demonstration Response: Asked questions, Verbalized understanding Barriers: None PLAN Plan Treatments/Interventions: Neuromuscular Re-education - 19675, Therapeutic Exercise - 08210, Electrical Stimulation Unattended - 33576, Mechanical Traction - 67990, Manual Therapy - 01444, Hot/Cold Pack - 48700, Ultrasound - 57996 Therapy Frequency: 2 times/week Duration of treatment time: 6 weeks Instruction Provided Home Exercise Program: Instructed in HEP and issued via [employer] handout (text message) TREATMENT PROVIDED TODAY Timed Treatments Therapeutic Exercise Minutes - 78318: 10 Therapeutic Exercise - 40407: Time includes review of HEP. Total Minutes: 10 Total Times Total Treatment Minutes: 10 Total Timed treatment Minutes: 10 Evaluation + Treatment = Total Time For Today's Visit: 55 Functional deficits and goals: 1. Decreased knowledge of how to manage symptoms independent: GOAL: Patient able to perform individualized home exercise program for independent symptom management within 6 weeks. 2. Impaired Sleep: GOAL: Patient to rate pain no greater than 3/10 for ability to sleep undisturbedthrough the night without pain medication within 6 weeks. 3. Impaired ability to check blind spot: GOAL: Patient to demonstrate Bilateral cervical rotation range of motion of 70 degrees for improved ease with turning head while driving within 6 weeks. 4. Impaired scapular strength: GOAL: Patient to improve B scapular strength to 4/5 for improved head and neck support within 6 weeks. 5. Functional/Disability scale shows deficits in activity: GOAL: Patient to score at least 15/50 onthe NDI scale to demonstrate improvement in overall function within 6 weeks. 6. Other GOAL: Patient to have decreased pain with median and ulnar nerve tension testing to indicate improved neural mobility for improved comfort with work and ADLs within 6 weeks. THE PROVIDER, I AM IN AGREEMENT WITH THE STATED THERAPY PLAN OF CARE. Provider Signature: Date: In signing this document, provider certifies that prescribed rehabilitation is a medical necessity. Date: 03/13/2021 Patient Name: Shagufta Lamar Patient : 1985 Patient [facility] [address] [facility] [address] Dept: [phone] Dept Cosigned by John Pinedo MD at 03/14/2021 7:11 AM SENIOR CLINICIAN OR CLINICIAN OR CLINICIAN documented in this encounter Plan of Treatment Not on file documented as of this encounter Visit Diagnoses Diagnosis Chronic neck and back pain- Primary documented in this encounter Additional Health Concerns Assessment Noted Time PHQ-9 Depression Total Score: 0 02/29/20 9:14 AM SENIOR CLINICIAN documented as of this encounter Care Teams Ap Operator Relationship Specialty Start Date End Date John Pinedo MD PCP - General INTERNAL MEDICINE 02/28/21 05/28/21 documented as of this encounter
--- OUTSIDE RECORDS SUMMARY | 2024-02-27 09:35 | XMS_ITS | Encounter Summary ---
Author Organization [facility] Address [address] [place] [address]. [place] [address] [place] [address] Care Team Providers Care Call Center Operations Manager Name Role Phone John Pinedo MD Primary Care Provider [phone] Reason for Visit * Reason Comments New Patient Rt hand * Surgical (Routine) - Closed Specialty Diagnoses / Procedures Referred By Nir small Referred To Contact HAND SURGERY / ORTHOPAEDICS Diagnoses Right hand pain De Quervain's tenosynovitis John Pinedo MD Phone: tel: fax: Addison Wallace MD Phone: tel: fax: Referral ID Status Reason Start Date Expiration Date Visits Re quested Visits Authorized [id number] Closed 02/28/2021 03/30/2022 99 99 Encounter Details Date Type Department Care Team (Late st Contact Info) Description 05/23/2021 8:20 AM CDT Office Visit [facility] Orthopedic [facility] Sports Medicine - [place] [address] [place], [place] [id number] [phone] Addison Wallace MD [address] [place], [place] [id number] New Patient (Rt hand) Social History Tobacco Use Types Packs/Day Years Used Date Smoking Tobacco: Some Days Cigarettes Smokeless Tobacco: Never Tobacco Cessation:Counseling Given: Yes Alcohol Use Standard Drinks/Week Comments [...] on file Legal Sex Female 9:41 PM SILVERER Gender Identity Female 04/24/2021 2:22 PM SILVERER Sexual Orientation Choose not to disclose 2021 2:22 PM SILVERER COVID-19 Exposure Response Date Recorded In the last 10 days, have yo u been in contact with someone who was confirmed or suspected to have Coronavirus/COVID-19? No / Unsure 05/23/2021 8:07 AM CDT documented as of this encounter Last Filed Vital Signs Vital Sign Reading Time Taken Comments Blood Pressure 100/70 05/23/2021 8:13 AM CDT Pulse 71 05/23/2021 8:13 AM CDT Temperature 36.3 ??C (97.3 ??F) 05/23/2021 8:13 AM CD T Respiratory Rate 18 05/23/2021 8:13 AM CDT Oxygen Saturation 100% 05/23/2021 8:13 AM CDT Inhaled Oxygen Concentration - - Weight 44.8 kg (98 lb 12.8 oz) 05/23/2021 8:13 A M CDT Height 157.5 cm (5' 2 ) 05/23/2021 8:13 AM CDT Body Mass Index 18.07 05/23/2021 8:13 AM CDT documented in this encounter Progress Notes * Addison Wallace MD - 05/23/2021 8:20 AM CDT Images from the original note were not included. OFFICE VISIT SUBJECTIVE Reason for Visit: New Patient (Rt hand) History of Present Illness: Shagufta Lamar is a 35-year-old right hand dominant female presenting for evaluation of wrist pain along radial side. Complaining of few months history of gradually worsening symptom localized mainly along radial wrist, right, associated with local swelling. Patient describes constant mild aching pain and tenderness that turn into more severe sharp pain with ADLs that involved wrist motion and thumb motion. Pain radiates from radial wrist proximaly into radial forearm. Symptoms tend to limit wrist and thumb AROM impacting performance of ADL???s. No other associated complaints. No history of relevant trauma. Previous treatments: Splints and NSAIDs,, In addition: 35-year-old right-hand dominant female, referred by John Pinedo MD, presents today for evaluation of numbness/tingling and pain. Patient complaining of 10 history of numbness, tingling and pain of right hand involving small and ring fingers primarily. Also describes associated aching pain on the volar aspect of the wrist that radiates up forearm. Inaddition describes stiffness, sensation of swelling and hot/cold sensation along affected fingers. Positive night symptoms that wake her up 2-3 nights a week. Pt is frequently shaking or massaging the hands for relief. During the day symptoms exacerbate with activities such as using computer, using the phone, writing, doing desk work, doing hair/make-up, driving, prolonged hold/economist research assistant, prolong elbow flexion, resting arm on desck/chair. Pt denies complains of decreased economist research assistant strength, decreased dexterity, and dropping things. Previous treatment: , NSAID's. No history of trauma. No other complaints. Review of Systems: Review of Systems Constitutional: Negative. HENT: Negative. Eyes: Negative. Respiratory: Negative. Cardiovascular: Negative. Gastrointestinal: Negative. Genitourinary: Negative. Musculoskeletal: Positive for joint pain. Skin: Negative. Neurological: Positive for tingling. Endo/Heme/Allergies: Negative. Psychiatric/Behavioral: Negative. History: Past Medical History: Diagnosis Date ??? ADHD (attention deficit hyperactivity disorder) ??? Back spasm 2009 ??? Blood transfusion without reported diagnosis 12/22/2020 due to miscarriage ??? Depression seasonal ??? Fibromyalgia ??? Head injury 12/2020 fell and hit head ??? Hypotension ??? Miscarriage 12/21/2020 ??? Neck muscle spasm 2009 ??? POTS (postural orthostatic tachycardia syndrome) Past Surgical History: Procedure Laterality Date ??? SECTION 2007 ??? COLONOSCOPY 2009 ? ? D&C AFTER DELIVERY miscarriage ??? EXPLORATORY LAPAROSCOPY 2007 X2 2007 and 2009 ??? HC TUBING LEEP ??? REMOVAL OF FALLOPIAN TUBE 2009 ??? REPAIR OF NASAL SEPTUM ??? TONSILLECTOMY No family history on file. Social History Tobacco Use ??? Smoking status: Current Some Day Smoker Years: 0.50 Types: Cigarettes ??? Smokeless tobacco: Never Used Vaping Use ??? Vaping Use: Never used Substance Use Topics ??? Alcohol use: Yes Comment: social, less than 1 drink per week ??? Drug use: Never Medications and Allergies: Current Outpatient Medications: ??? diclofenac EC 50 MG tablet, Take 1 tablet by mouth daily as needed., Disp: , Rfl: ??? DULoxetine 60 MG capsule, Take 1 capsule (60 mg total) by mouth daily., Disp: 90 capsule, Rfl: 0 ??? ibuprofen 600 MG tablet, Take by mouth as needed., Disp: , Rfl: Allergies Allergen Reactions ??? Cephalosporins Diarrhea and Vomiting CDIF ??? Codeine Seizure ??? Latex Rash ??? Penicillins Rash OBJECTIVE Vital Signs: Filed Vitals: 05/23/21 0813 BP: 100/70 Pulse: 71 Resp: 18 Temp: 97.3 ??F (36.3 ??C) SpO2: 100% Weight: 44.8 kg (98 lb 12.8 oz) Height: 5' 2 (1.575 m) Body mass index is 18.07 kg/m??. Physical Exam: Physical Exam Constitutional: She is oriented to person, place, and time. She appears well- developed and well-nourished. HENT: Head: Normocephalic. Eyes: EOM are normal. Lymph nodes: No palpable lymphadenopathy involving bilateral upper extremities. Cardiovascular: Intact distal pulses. Pulmonary/Chest: Effort normal. No respiratory distress. Neurological: She is alert and oriented to person, place, and time. Psychiatric: She has a normal mood and affect. Upper Extremity Exam: Right Upper Extremity Upper Arm : no tenderness, no swelling, no masses, no deformities Elbow : Inspection/Palpation: no tenderness, no swelling, no erythema, no induration, no bruising. All muscle compartments soft, no joint effusion present, no deformities noted, no masses present, no arthritic changes. Negative lateral/medial epicondylitis provocation test Range of Motion: Active and Passive ROM within functional range for age/activity level Strength: flexion and extension 5/5 Stability: no joint instability on provocative testing Tests/Signs: Tinel's and compression sign positive nover cubital tunnel Forearm: no tenderness to palpation, no swelling, no forearm deformities noted, no masses present Wrist: Inspection/Palpation: Significant first dorsal compartment local tenderness and swelling/fullness suggestive of tendonitis, no tenderness, no swelling, no erythema, no induration, no bruising. All muscle compartments soft, no joint effusion present, no deformities noted, no masses present, no arthritic changes, no crepitus noted in wrist/carpus Range of Motion: Active and Passive ROM within functional range for age/activity level Strength: flexion and extension and lateral deviation 5/5 Stability: no joint instability on provocative testing Tests/Signs: Tinel's and compression sign negative over carpal tunnel, Nitza test positive Hand : Inspection/Palpation: no tenderness, no swelling, no erythema, no induration, no bruising. All muscle compartments soft, no joint effusion present, no deformities noted, no masses present, no arthritic changes. No crepitus hand/fingers on ROM testing, no deformities of hand or fingers Range of Motion: Active and passive ROM within functional range for age/activity level Strength: all muscles 5/5 Stability: no joint instability on provocative testing Sensation: hand neuro-vascular exam intact Muscle Tone: tone normal Muscle Bulk: muscle bulk normal Skin: no skin lesions or discoloration Vascular Exam: normal capillary refill, radial artery pulse 2, ulnar artery pulse 2, normal finger capillary refill Left Upper Extremity Upper Arm : no tenderness, no swelling, no masses, no deformities Elbow : Inspection/Palpation: no tenderness, no swelling, no erythema, no induration, no bruising. All muscle compartments soft, no joint effusion present, no deformities noted, no masses present, no arthritic changes. Negative lateral/medial epicondylitis provocation test Range of Motion: Active and Passive ROM within functional range for age/activity level Strength: flexion and extension 5/5 Stability: no joint instability on provocative testing Tests/Signs: Tinel's and compression sign negative over cubital tunnel Forearm: no tenderness to palpation, no swelling, no forearm deformities noted, no masses present Wrist: Inspection/Palpation: no tenderness, no swelling, no erythema, no induration, no bruising. All muscle compartments soft, no joint effusion present, no deformities noted, no masses present, no arthritic changes, no crepitus noted in wrist/carpus Range of Motion: Active and Passive ROM within functional range for age/activity level Strength: flexion and extension and lateral deviation 5/5 Stability: no joint instability on provocative testing Tests/Signs: Tinel's and compression sign negative over carpal tunnel, Nitza test negative Hand : Inspection/Palpation: no tenderness, no swelling, no erythema, no induration, no bruising. All muscle compartments soft, no joint effusion present, no deformities noted, no masses present, no arthritic changes. No crepitus hand/fingers on ROM testing, no deformities of hand or fingers Range of Motion: Active and passive ROM within functional range for age/activity level Strength: all muscles 5/5 Stability: no joint instability on provocative testing Sensation: hand neuro-vascular exam intact Muscle Tone: tone normal Muscle Bulk: muscle bulk normal Skin: no skin lesions or discoloration Vascular Exam: normal capillary refill, radial artery pulse 2, ulnar artery pulse 2, normal finger capillary refill Recent Imaging: No image results found. ASSESSMENT Shagufta was seen today for new patient. Diagnoses and all orders for this visit: Cubital tunnel syndrome on right PLAN Treatment/Counselling: Discussed the etiology, pathophysiology and natural history of nerve compression neuropathies, including carpal tunnel and cubital tunnel; including a detailed explanation of anatomy. Detailed review of non-operative and operative treatment options were discussed with patient including risks benefits and indications. Treatment criteria such as nerve function status and quality of life were discussed. Options such as NSAIDS, splinting, OT, oral and injected steroids, activity modification, open surgery and endoscopic surgery. Also discussed risks of permanent nerve function deterioration associated with increase duration and/or severity of symptoms/nerve compression. Also discussed possible risk of nerve entrapment from thickened (epineurum) tissue surrounding nerve which could require a separate procedure. Surgical risks including but not limited to, infection, bleeding, injury to surrounding structures,cicatrix, recurrence, joint stiffness, joint pain, chronic swelling, incisional tenderness, chronicnumbness, need of further surgery, possible anesthesia complications were all discussed. Possible need of Post op rehab was also explained. Patient voices understanding and wishes to proceed with splinting Etiology, pathophysiology and natural history of Dequerveins tendonitis was discussed with the patient, including explanation of relevant anatomy. Treatment options from doing nothing, splints, therapy,activity modification, anti-inflammatories by mouth, steroids by mouth or injection, surgical release open, were all discussed with the patient including risks, benefits and indications. Surgical risks including but not limited to, infection, bleeding, failure to relief problem, injuryto surrounding structures, cicatrix, recurrence, joint stiffness, joint pain, chronic swelling, incisional tenderness, chronic numbness, need of further surgery, CRPS, anesthesia complications, were all discussed. Post op rehab was also explained. Patient voices understanding and wishes to try one more steroid injection Procedure: DEQUERVAINS COMPARTMENT The risks, benefits and indications of steroid injections including but notlimited to infection, bleeding, injury to underlying neurovascular structures, hematoma, seroma, skin pigment discoloration, weakening of surrounding soft tissues, incomplete relief, and eventual need for more definitive surgical intervention were explained to the patient. The patient was in full understanding and wished to proceed with steroid injection at this time. DETAILS: - STEROID INJECTION right DEQUERVAIN'S COMPARTMENT , Following sterile precautions, the radial wrist site of injection was prepped. , 25g needle was advanced into extensor compartment in atraumatic fashion avoiding local neurovascular structures. 1 cc of lidocaine and 1 cc of dexamethasonewere injected at the site with sterile precautions uneventfully. The patient tolerated the procedure well. The injection site was covered with a Band-Aid. The patient was informed that they may experience more discomfort in the 24-48 hours following steroid injection after which symptoms of pain and discomfort should begin to resolve. ADDISON WALLACE MD 05/23/2021 Cc. MD John CERVANTES MD documented in this encounter Plan of Treatment Scheduled Orders Name Type Priority Associated Diagnoses Orde r Schedule INJECT TENDON ORIGIN/INSERT Procedures Routine Cubital tunnel syndrome on right Ordered: 05/23/2021 documented as of this encounter Visit Diagnoses Diagnosis Cubital tunnel syndrome on right- Primary Lesion of ulnar nerve documented in this encounter Administered Medications Inactive Administered Medications - up to 3 most recent administrations Medication Order MAR Action Action Date Dose Rate Site dexamethasone (DECADRON) injection 4 mg 4 mg, Intramuscular, Once, 1 dose, On Sat05/23/21 at 0915, Administer slowly over 1-4 minutes.Indications:Cubital tunnel syndrome on right Given 05/23/2021 9:15 AM CDT 4 mg Other lidocaine (XYLOCAINE) 2 % injection 1 mL 1 mL, Other, Once, 1 dose, On 05/23/22 at 0915Indications:Cubital tunnel syndrome on right Given 05/23/2021 9:15 AM CDT 1 mL documented in this encounter Additional Health Concerns Assessment Noted Time PHQ-9 Depression Total Score: 0 02/29/20 9:14 AM SILVERER documented as of this encounter Care Teams Call Center Operations Manager Relationship Specialty Start Date End Date John Pinedo MD PCP - General INTERNAL MEDICINE 02/28/21 05/28/21 documented as of this encounter
--- OUTSIDE RECORDS SUMMARY | 2024-02-27 09:35 | XMS_ITS | Encounter Summary ---
Author Organization [facility] Address [address] [place] [address]. [place] [address] [place] [address] Care Team Providers Care Beauty School Instructor Name Role Phone John Pinedo MD Primary Care Provider [phone] Jacquie Fair NP Primary Care Provider [phone] Encounter Details Date Type Department Care Team (Latest Contact Info) Description 05/19/2020 Scan HEALTH INFO [facility] Scanned, Doc Med Group Social History Tobacco Use Types Packs/Day Years Used Date Smoking Tobacco: Never Assessed PHQ-2 Answer Date Recorded Patient Health Questionnaire-2 Score 2 04/13/2022 Comments Unknown Sex and Gender Information Value Date Recorded Sex Assigned at Not on file Legal Sex Female 9:41 PM COMPRESSOR MECHANIC Gender Identity Female 04/24/2021 2:22 PM COMPRESSOR MECHANIC Sexual Orientation Choose not to disclose 2021 2:22 PM COMPRESSOR MECHANIC COVID-19 Exposure Response Date Recorded In [...] Out 12/12/2021 12/12/2021 12/13/2021 1:56 PM CDT documented as of this encounter Care Teams Beauty School Instructor Relationship Specialty Start Date End Date John Pinedo MD PCP - General INTERNAL MEDICINE 02/28/21 05/28/21 Jacquie Fair NP [address] [place] [address] PCP - General NURSE PRACTITIONER 06/20/21 documented as of this encounter
--- OUTSIDE RECORDS SUMMARY | 2024-02-27 09:35 | XMS_ITS | Encounter Summary ---
Author Organization [facility] Address [address] [place] [address]. [place] [address] [place] [address] Care Team Providers Care Client Specialist Name Role Phone John Pinedo MD Primary Care Provider [phone] Encounter Details Date Type Department Care Team (Latest Contact Info) Description 03/09/2021 Travel Social History Tobacco Use Types Packs/Day [...] on file Legal Sex Female 9:41 PM GLASSWARE ENGRAVER Gender Identity Female 04/24/2021 2:22 PM GLASSWARE ENGRAVER Sexual Orientation Choose not to disclose 2021 2:22 PM GLASSWARE ENGRAVER COVID-19 Exposure Response Date Recorded In the last month, have you been in contact with someone who was confirmed or suspected to have Coronavirus / COVID-19? No / Unsure 03/09/2021 4:41 PM GLASSWARE ENGRAVER documented as of this encounter Plan of Treatment Not on file documented as of this encounter Visit Diagnoses Not on filedocumented in this encounter Additional Health Concerns Assessment Noted Time PHQ-9 Depression Total Score: 0 02/29/20 9:14 AM GLASSWARE ENGRAVER documented as of this encounter Care Teams Client Specialist Relationship Specialty Start Date End Date John Pinedo MD PCP - General INTERNAL MEDICINE 02/28/21 05/28/21 documented as of this encounter
--- OUTSIDE RECORDS SUMMARY | 2024-02-27 09:35 | XMS_ITS | Encounter Summary ---
Author Organization [facility] Address [address] [place] [address]. [place] [address] [place] [address] Care Team Providers Care Public Health Outreach Worker Name Role Phone Jacquie Fair NP Primary Care Provider [phone] Reason for Referral * Consultation (Urgent) - Closed Specialty Diagnoses / Procedures Referred By Contac t Referred To Contact GASTROENTEROLOGY Diagnoses Antral gastritis Anemia, unspecified type Jacquie Fair NP [address] [place] [address] Phone: tel: fax: Garret John MD [address] [place] [id number] Phone: tel: fax: Referral ID Status Reason Start Date Expiration Date Visits Re quested Visits Authorized [id number] Closed 07/07/2021 08/08/2022 100 100 Scheduling Instructions Fairly quick drop in blood count, recent dx of antral gastritis. Pt to be seen very soon. * Consultation (Urgent) - Closed Specialty Diagnoses / Procedures Referred By Contac t Referred To Contact INTERNAL MEDICINE Diagnoses Iron deficiency anemia, unspecified iron deficiency anemia type Jacquie Fair NP [address] [place] [address] Phone: tel: fax: Josh Akhtar, DO [address] [address] Phone: tel: fax: Referral ID Status Reason Start Date Expiration Date V isits Requested Visits Authorized [id number] Closed Specialty Services 07/07/2021 08/06/2022 99 99 Scheduling Instructions Please refer pt to Dr. Akhtar for anemia.Hx of needing blood transfusions. Reason for Visit * Reason Onset Date Comments Lab Results 07/07/2021 lab results Encounter Details Date Type Department Care Team (Late st Contact Info) Description 07/07/2021 Telephone [facility] - [place] [address] [facility] [address] [place] [phone] Jacquie Fair NP [address] [place] [address] Lab Results (lab results ) Social History Tobacco Use Types Packs/Day [...] on file Legal Sex Female 9:41 PM RISK COMPLIANCE ANALYST Gender Identity Female 04/24/2021 2:22 PM RISK COMPLIANCE ANALYST Sexual Orientation Choose not to disclose 2021 2:22 PM RISK COMPLIANCE ANALYST COVID-19 Exposure Response Date Recorded In the last 10 days, have yo u been in contact with someone who was confirmed or suspected to have Coronavirus/COVID-19? No / Unsure 07/04/2021 7:34 PM CDT documented as of this encounter Progress Notes * Jacquie Fair NP - 07/07/2021 7:58 AM CDT Called pt to inform of her lab results. Pt has had a fairly quick drop in her blood counts and ironstores are low. Pt tells me she has hx of needing blood transfusions. Will refer pt to hem/onc and GI. Recent dx of antral gastritis. Pt had been taking the Carafate PRN. I instructed her to take four times a day as directed as well at the Protonix. In the meantime begin ferrous sulfate 325 mg daily. Avoid smoking, any NSAID or aspirin use. Urgent referrals placed. Pt verbalized understanding and had no further questions. documented in this encounter Plan of Treatment Scheduled Referrals Name Type Priority Associated Diagnoses Orde r Schedule Ambulatory referral to Hematology/Oncology (OTHER) Referral Routine Iron deficiency anemia, unspecified iron deficiency anemia type Ordered: 07/07/2021 Ambulatory referral to Gastroenterology ( [place]) Referral Routine Antral gastritis Anemia, unspecified type Ordered: 07/07/2021 documented as of this encounter Visit Diagnoses Diagnosis Iron deficiency anemia, unspecified iron deficiency anemia type- Primary Antral gastritis Other specified gastritis without mention of hemorrhage Anemia, unspecified type documented in this encounter Additional Health Concerns Assessment Noted Time PHQ-9 Depression Total Score: 0 02/29/20 21 9:14 AM RISK COMPLIANCE ANALYST documented as of this encounter Care Teams Public Health Outreach Worker Relationship Specialty Start Date End Date Jacquie Fair NP [address] [place] [address] PCP - General NURSE PRACTITIONER 06/20/21 documented as of this encounter
--- OUTSIDE RECORDS SUMMARY | 2024-02-27 09:35 | XMS_ITS | Encounter Summary ---
Author Organization [facility] Address [address] [place] [address]. [place], [place] [id number] [place] [id number] Care Team Providers Care Block Operator Name Role Phone John Pinedo MD Primary Care Provider [phone] [phone] Reason for Referral * Physical Medicine (Routine) - Closed Specialty Diagnoses / Procedures Referred By Contac t Referred To Contact [facility] Physical Therapy Diagnoses Chronic neck and back pain John Pinedo MD Phone: tel: fax: [facility] [id number] [place] [address] Phone: tel: fax: Referral ID Status Reason Start Date Expiration Date V isits Requested Visits Authorized [id number] Closed Physical Therapy 02/28/2021 03/01/2022 99 99 DDER TENDER * Surgical (Routine) - Closed Specialty Diagnoses / Procedures Referred By Contac t Referred To Contact HAND SURGERY / ORTHOPAEDICS Diagnoses Right hand pain De Quervain's tenosynovitis John Pinedo MD Phone: tel: fax: Addison Wallace MD Phone: tel: fax: Referral ID Status Reason Start Date Expiration Date Visits Re quested Visits Authorized [id number] Closed 02/28/2021 03/30/2022 99 99 DDER TENDER Reason for Visit * Reason Comments New Patient establish care Encounter Details Date Type Department Care Team (Late st Contact Info) Description 02/28/2021 8:40 AM SHREDDER TENDER Office Visit [facility] Family & Internal Medicine [facility] [address] [place] [address] John iPnedo MD [address] [place] [address] New Patient (establish care) Social History Tobacco Use Types Packs/Day Years [...] on file Legal Sex Female 9:41 PM SHREDDER TENDER Gender Identity Female 04/24/2021 2:22 PM SHREDDER TENDER Sexual Orientation Choose not to disclose 2021 2:22 PM SHREDDER TENDER COVID-19 Exposure Response Date Recorded In the last month, have you been in contact with someone who was confirmed or suspected to have Coronavirus / COVID-19? No / Unsure 03/09/2021 4:41 PM SHREDDER TENDER documented as of this encounter Last Filed Vital Signs Vital Sign Reading Time Taken Comments Blood Pressure 98/74 02/28/2021 8:59 AM SHREDDER TENDER Pulse 92 02/28/2021 8:59 AM SHREDDER TENDER Temperature 37.3 ??C (99.1 ??F) 02/28/2021 8:59 AM CS T Respiratory Rate 16 02/28/2021 8:59 AM SHREDDER TENDER Oxygen Saturation 99% 02/28/2021 8:59 AM SHREDDER TENDER Inhaled Oxygen Concentration - - Weight 45.8 kg (101 lb) 02/28/2021 8:59 AM SHREDDER TENDER Height 157.5 cm (5' 2 ) 02/28/2021 8:59 AM SHREDDER TENDER Body Mass Index 18.47 02/28/2021 8:59 AM SHREDDER TENDER documented in this encounter Patient Instructions * Patient Instructions* John Pinedo MD - 02/28/2021 8:40 AM SHREDDER TENDER Shagufta, Thank you for your visit We will call with any concerning results. If you have a Desk account, your results will appear there. If not, we will mail a copy for your records. Continue your current medications. I have placed orders for physical therapy, as well as referral to hand surgeon. You should receive calls in the next 2 weeks to schedule appointments with each at your convenience. See handout regarding de Quervain's tenosynovitis, which may be helpful for your current symptoms Monitor your sore throats and abdominal pain and call if worsening or failing to resolve over the next week For your pill sensation to your throat, I recommend taking 20 mg of omeprazole daily for the next 2weeks -- call us if symptoms persist Make sure to sign a release to the emergency department/hospital where you were seen and had your most recent lab work Your urinalysis was normal, no culture will be sent. Nevertheless it is recommended you get treatedfor symptoms, so I am going to send out a prescription for Macrobid as well as Pyridium for symptomrelief As you exit, please stop at the front line supervisor and schedule your follow-up appointment. Return in about 3 months (around 05/29/2021) for routine follow-up, and as needed. Call with any concerns. Healthy adult recommendations: Focus on a healthy diet, with exercise as tolerated, targeting 30-60minutes of exercise daily, at least 5 days per week. Have a good day! Merry Phylicia!! DDER TENDER DDER TENDER documented in this encounter Progress Notes * John Pinedo MD - 02/28/2021 8:40 AM CST REASON FOR VISIT/CHIEF COMPLAINT New Patient (establish care) Shagufta Lamar is a pleasant 35-year-old female, here to establish with our practice. She was last seenby Dr. Viera in [place], with her last visit occurring about 6 months ago. Last labwork was in ER. HISTORY OF PRESENT ILLNESS: Chief complaint and nursing note reviewed above. Shagufta presents to establish, with the following acute concerns: ?? Patient was in ER in [place] in December for head injury after fainting following miscarriage ?? Received transfusion, concern for continued anemia ?? Previously in physical therapy for chronic neck and low back pain. ?? Acute onset pain to right hand yesterday ?? Chronic -- several times per year ?? Swelling and pain to the thenar eminence ?? No previous treatments aside from bracing ?? 2-day history of sore throat ?? Several day history of right lower quadrant abdominal pain ?? Lmp - 2 weeks ago ?? History of ovarian cyst ?? 09/17 at worst ?? Dysuria ?? Notes a 2-week history of dysphagia ?? Feels as if she has a retained pill in her upper esophagus/throat ?? Denies any reflux symptoms PAST MEDICAL, SURGICAL, FAMILY AND SOCIAL HISTORIES were reviewed in detail and the computerized patient record updated as needed. Past Medical History Past Medical History: Diagnosis Date ??? ADHD [...] DELIVERY miscarriage ??? EXPLORATORY LAPAROSCOPY 2006 X2 2006 and 2009 ??? HC TUBING LEEP ??? REMOVAL OF FALLOPIAN TUBE 2008 ??? REPAIR OF NASAL SEPTUM ??? TONSILLECTOMY Social History Social History Tobacco Use ??? Smoking status: Current Some Day Smoker Years: 0.50 Types: Cigarettes ??? Smokeless tobacco: Never Used Substance Use Topics ??? Alcohol use: Yes Comment: social, less than 1 drink per week Family History No family history on file. Allergy Allergies Allergen Reactions ??? Cephalosporins Diarrhea CDIF ??? Codeine Seizure ??? Penicillins Rash Medication list Current medication(s) at the start of this visit: Medication Sig ??? diclofenac EC 50 MG tablet Take 1 tablet by mouth daily as needed. ??? DULoxetine 60 MG capsule Take 1 capsule by mouth daily. ??? ibuprofen 600 MG tablet Take by mouth as needed. REVIEW OF SYSTEMS: Pertinent positives and negatives as noted in HPI. All other systems reviewed and negative. VITAL SIGNS: Temp 99.1 ??F (37.3 ??C) (Temporal) BP 98/74 Pulse 92 Resp 16 SpO2 99% Wt 45.8 kg (101 lb) BMI 18.47 kg/m?? PHYSICAL EXAMINATION: GENERAL: Well-developed and thin, cooperative. Well-appearing, in no acute distress. SKIN: Normal color, warm & dry. Without lesions. HEAD: Normocephalic, without trauma. EENT: Extraocular movements intact, pupils equal, round, and reactive to light, sclerae anicteric, conjunctivae non-injected and without discharge; tympanic membranes clear with normal light reflex, in normal position; nasopharynx clear; oropharynx clear, oral mucosa moist, without lesions. Good dentition. NECK: Supple, without thyromegaly, lymphadenopathy, or masses. RESPIRATORY: Airway patent. No distress. Lungs clear to auscultation bilaterally; no wheezes, rales, or rhonchi. CARDIOVASCULAR: Heart tones regular in rhythm, without murmur; no gallops, clicks, or rubs. Peripheral pulses normal and symmetric to palpation. GASTROINTESTINAL: Abdomen soft, mild right lower quadrant tenderness to palpation, without rebound or guarding, non-distended, with normoactive bowel sounds; no organomegaly or masses. BACK: Normal curvature; no vertebral, costovertebral angle, or paraspinal tenderness to palpation. EXTREMITIES: Warm, without clubbing, cyanosis, or edema. NEUROLOGIC: Alert & oriented x 3; cranial nerves II through XII grossly intact, without focal deficits; no sensory or motor deficits; gait normal. MUSCULOSKELETAL: Normal range of motion. Mild tenderness to right thenar eminence, extending up radial wrist, no deformity or bony point tenderness. Positive Nitza PSYCHOLOGIC: Affect appropriate. GENITOURINARY: Deferred. Labs: Results for orders placed or performed in visit on 02/28/21 URINALYSIS AUTO DIP Result Value Ref Range COLOR (U) DARK YELLOW TRANSPARENCY CLEAR GLUCOSE (U) NEGATIVE NEGATIVE MG/DL BILIRUBIN (U) NEGATIVE NEGATIVE U KETONES NEGATIVE NEGATIVE MG/DL Specific Sunflower (U) 1.025 1.001 - 1.035 BLOOD NEGATIVE NEGATIVE U PH 6.5 5.0 - 9.0 PROTEIN (U) NEGATIVE NEGATIVE mg/dL UROBILINOGEN 0.2 0.2 - 1.0 EU/dL = mg/dL NITRITES NEGATIVE NEGATIVE MG/DL LEUKOCYTE ESTERASE NEGATIVE NEGATIVE Imaging & Other Studies None Assessment & Plan 1. Encounter for well adult exam without abnormal findings Doing well. Reviewed with the patient BMI, blood pressure, diet, exercise, and encouraged healthy lifestyle choices. Encouraged biennial screening mammography, unless high risk. Screening for cervical cancer every 3 years with Pap test/HPV in women aged 21 - 65 with cervix. Weight-bearing exercise to decrease risks of osteoporosis. Colorectal cancer screening beginning at age 45. Screened for sub stance use, risk factors for sexually transmitted infections, diet and exercise habits, and symptoms of depression. Recommended preventive immunizations according to age. 2. History of anemia Check CBC, attempt to obtain previous records for comparison 3. Chronic neck and back pain Referral to physical therapy for continued treatment, attempt to obtain previous records to review past treatments 4. Right hand pain Symptoms suggestive of possible CMC arthritis, chronic Refer to hand surgery for evaluation, consider imaging 5. De Quervain's tenosynovitis Handout provided Recommend bracing Scheduled NSAIDs 6. Acute sore throat Suspected viral etiology Recommend symptomatic treatment Monitor for improvement/resolution 7. Dysuria Normal urinalysis Given symptoms will empirically treat (see below) Patient to call if symptoms persist despite treatment 8. Right lower quadrant abdominal pain 9. History of ovarian cyst Mild signs on physical exam, though ovarian cyst is in the differential diagnosis Unclear etiology Patient to monitor and call if failure to improve 10. Globus sensation Given relative acuity of symptoms, recommend use of PPI for the next 2 weeks Monitor for symptom improvement 11. Seasonal depression (CMS/HCC) Patient reports stability on current dosage of duloxetine Continue present treatment 12. Medication management Check lab work as noted below Attempt to obtain recent labs from emergency department for review 13. BMI less than 19,adult Encouraged healthy diet and regular exercise as tolerated, targeting 30-60 minutes 5 out of 7 days. Medication Changes/Renewals & Orders: Orders Placed This Encounter ??? VENIPUNC ARM DRAW ??? CBC W/DIFF AUTOMATED ??? URINALYSIS AUTO DIP ??? Ambulatory referral to Hand Surgery ??? Ambulatory referral to Physical Therapy ??? diclofenac EC 50 MG tablet ??? DISCONTD: DULoxetine 60 MG capsule ??? ibuprofen 600 MG tablet ??? nitrofurantoin, macrocrystal-monohydrate, 100 MG capsule ??? phenazopyridine (PYRIDIUM) 200 MG tablet Follow-up: Return in about 3 months (around 05/29/2021) for routine follow-up, and as needed. John Pinedo MD [facility] Internal Medicine & Pediatric[facility] 02/28/2021 Portions of this note were dictated using [employer] speech recognition software. Occasional wrong wordor sound-alike substitutions may have occurred due to the inherent limitations of voice recognition software. Please read the chart carefully and recognize, using context, where the substitutions may have occurred. DDER TENDER documented in this encounter Plan of Treatment Scheduled Referrals Name Type Priority Associated Diagnoses Orde r Schedule Ambulatory referral to Hand Surgery Referral Routine Right hand pain De Quervain's tenosynovitis Ordered: 02/28/2021 Ambulatory referral to Physical Therapy Referral Routine Chronic neck and back pain Ordered: 02/28/2021 documented as of this encounter Procedures Procedure Name Priority Date/Time Associated Diagnosis Comments VENIPUNC ARM DRAW Routine 02/28/2021 12: 09 PM SHREDDER TENDER Encounter for well adult exam without abnormal findings URINALYSIS AUTO DIP Routine 02/28/2021 9 :46 AM SHREDDER TENDER Dysuria documented in this encounter Results * URINALYSIS AUTO DIP (02/28/2021 9:46 AM SHREDDER TENDER) COLOR (U) DARK YELLOW [id number], [place] TRANSPARENCY CLEAR MG-[address] GLU[facility]SE (U) NEGATIVE NEGATIVE MG/DL [id number] BILIRUBIN (U) NEGATIVE NEGATIVE MG-[address], [facility] KETONES MG/DL (U) NEGATIVE NEGATIVE MG/DL MG-[address], [facility] SPECIFIC GRAVITY (U) 1.025 1.001 - 1.035 MG-[address], [facility] BLOOD (U) NEGATIVE NEGATIVE MG-[address], [place] U PH 6.5 5.0 - 9.0 MG-[address], [facility] PROTEIN (U) NEGATIVE NEGATIVE mg/dL MG-[address], [place] UROBILINOGEN 0.2 0.2 - 1.0 EU/dL = mg/dL MG-[address], [place] NITRITES NEGATIVE NEGATIVE MG/DL MG-[address], [place] LEUKOCYTES (U) NEGATIVE NEGATIVE MG-[address], [place] URINE SPECIMEN OBTAINED BY CLEAN CATCH PROCEDURE / Unknown 02/28/2021 9:46 AM SHREDDER TENDER us John Pinedo MD URINE ORDERABLES Final Re sult -[id number], [place] [address] [place] [address], [place] [phone] * (ABNORMAL) CBC W/DIFF AUTOMATED (02/28/2021 9:44 AM SHREDDER TENDER) WBC 4.6 4.4 - 11.0 x10'3/uL 02/28/2021 1:49 PM SHREDDER TENDER [facility] RBC 4.26(L) 4.50 - 5.10 x10'6/uL 02/28/2021 1:49 PM SHREDDER TENDER [facility] HGB 12.1(L) 12.3 - 15.3 G/DL 02/28/2021 1:49 PM SHREDDER TENDER [facility] HCT 38.4 35.9 - 44.6 % 02/28/2021 1:49 PM SHREDDER TENDER [facility] MCV 90.1 80.0 - 96.0 FL 02/28/2021 1:49 PM SHREDDER TENDER [facility] MCH 28.4 25.3 - 30.9 PG 02/28/2021 1:49 PM SHREDDER TENDER [facility] MCHC 31.5 31.0 - 34.1 G/DL 02/28/2021 1:49 PM [facility] RDW 12.8 12.4 - 15.1 % 02/28/2021 1:49 PM [facility] PLT 290 151 - 353 x10'3/uL 02/28/2021 1:49 PM [facility] MPV 10.3 9.6 - 12.0 FL 02/28/2021 1:49 PM [facility] RBC MORPHOLOGY NORMAL 02/28/2021 1:49 PM [facility] PLT MORPH. NORMAL 02/28/2021 1:49 PM [facility] WBC MORPHOLOGY NORMAL 02/28/2021 1:49 PM [facility] LYMPHOCYTES % 35.0 15.8 - 45.0 % 02/28/2021 1:49 PM [facility] NEUTROPHILS % 54.1 42.1 - 71.9 % 02/28/2021 1:49 PM [facility] MONOCYTES % 6.3 5.7 - 12.5 % 02/28/2021 1:49 PM [facility] EOSINOPHILS 3.5 0.0 - 5.6 % 02/28/2021 1:49 PM [facility] BASOPHILS 0.9 0.0 - 1.3 % 02/28/2021 1:49 PM [facility] ABS. NEUTROPHILS 2.47 1.40 - 6.00 x10'3/uL 02/28/2021 1:49 PM [facility] IMMATURE GRANS % 0.2 0.0 - 0.5 % 02/28/2021 1:49 PM [facility] ABS. LYMPHOCYTES 1.60 0.80 - 4.70 x10'3/uL 02/28/2021 1:49 PM SHREDDER TENDER [facility] 02/28/2021 9:44 AM SHREDDER TENDER us John Pinedo MD LABORATORY Final Res ult [facility] [address] [place] [address], [place] [phone] documented in this encounter Visit Diagnoses Diagnosis Encounter for well adult exam without abnormal findings- Primary History of anemia Personal history of diseases of blood and blood-forming organs Chronic neck and back pain Right hand pain Pain in limb De Quervain's tenosynovitis Radial styloid tenosynovitis Acute sore throat Dysuria Right lower quadrant abdominal pain Abdominal pain, right lower quadrant History of ovarian cyst Personal history of other genital system and obstetric disorders Globus sensation Gastrointestinal malfunction arising from mental factors Seasonal depression (CMS/HCC) Other specified episodic mood disorder Medication management Encounter for long-term (current) use of other medications BMI less than 19,adult Body Mass Index less than 19, adult documented in this encounter Additional Health Concerns Assessment Noted Time PHQ-9 Depression Total Score: 0 02/29/20 9:14 AM SHREDDER TENDER documented as of this encounter Care Teams Block Operator Relationship Specialty Start Date End Date John Pinedo MD PCP - General INTERNAL MEDICINE 02/28/21 05/28/21 documented as of this encounter
--- OUTSIDE RECORDS SUMMARY | 2024-02-27 09:35 | XMS_ITS | Encounter Summary ---
Author Organization [facility] Address [address] [place] [address]. [place] [address] [place] [address] Care Team Providers Care Dough Mixer Name Role Phone John Pinedo MD Primary Care Provider [phone] Encounter Details Date Type Department Care Team (Latest Contact Info) Description 05/20/2021 Travel Social History Tobacco Use Types Packs/Day [...] on file Legal Sex Female 9:41 PM LOCKET MAKER Gender Identity Female 04/24/2021 2:22 PM LOCKET MAKER Sexual Orientation Choose not to disclose 2021 2:22 PM LOCKET MAKER COVID-19 Exposure Response Date Recorded In the last 10 days, have yo u been in contact with someone who was confirmed or suspected to have Coronavirus/COVID-19? No / Unsure 05/20/2021 8:44 AM LOCKET MAKER documented as of this encounter Plan of Treatment Not on file documented as of this encounter Visit Diagnoses Not on filedocumented in this encounter Additional Health Concerns Assessment Noted Time PHQ-9 Depression Total Score: 0 02/29/20 9:14 AM LOCKET MAKER documented as of this encounter Care Teams Dough Mixer Relationship Specialty Start Date End Date John Pinedo MD PCP - General INTERNAL MEDICINE 02/28/21 05/28/21 documented as of this encounter
--- OUTSIDE RECORDS SUMMARY | 2024-02-27 09:35 | XMS_ITS | Encounter Summary ---
Author Organization [facility] Address [address] [place] [address]. [place] [address] [place] [address] Care Team Providers Care Travel Physical Therapist Name Role Phone Jacquie Fair NP Primary Care Provider [phone] Encounter Details Date Type Department Care Team (Latest Contact Info) Description 07/04/2021 Travel Social History Tobacco Use Types Packs/Day [...] on file Legal Sex Female 9:41 PM PHLEBOTOMIST LAB ASSISTANT Gender Identity Female 04/24/2021 2:22 PM PHLEBOTOMIST LAB ASSISTANT Sexual Orientation Choose not to disclose 2021 2:22 PM PHLEBOTOMIST LAB ASSISTANT COVID-19 Exposure Response Date Recorded In the [...] Depression Total Score: 0 02/29/20 9:14 AM PHLEBOTOMIST LAB ASSISTANT documented as of this encounter Care Teams Travel Physical Therapist Relationship Specialty Start Date End Date Jacquie Fair NP [address] [place] [address] [place] [address] PCP - General NURSE PRACTITIONER 06/20/21 documented as of this encounter
--- OUTSIDE RECORDS SUMMARY | 2024-02-27 09:35 | XMS_ITS | Encounter Summary ---
Author Organization [facility] Address [address] [place] [address]. [place] [address] [place] [address] Care Team Providers Care Inward Toll Operator Name Role Phone Jacquie Fair NP Primary Care Provider [phone] [phone] Encounter Details Date Type Department Care Team (Latest Contact Info) Description 08/02/2021 5:20 PM CDT - 08/02/2021 11:59 PM T Hospital Encounter [facility] [address] [place] [address] Josh Akhtar, DO [address] [facility] [address] [place] [phone] Discharge Disposition: Home or Self Care [...] on file Legal Sex Female 9:41 PM BUCKLE STRAP DRUM OPERATOR Gender Identity Female 04/24/2021 2:22 PM BUCKLE STRAP DRUM OPERATOR Sexual Orientation Choose not to disclose 2021 2:22 PM BUCKLE STRAP DRUM OPERATOR COVID-19 Exposure Response Date Recorded In the last 10 days, have yo u been in contact with someone who was confirmed or suspected to have Coronavirus/COVID-19? No / Unsure 07/04/2021 7:34 PM CDT documented as of this encounter Medications at Time of Discharge DULoxetine 60 MG capsuleIndication s:Seasonal depression (CMS/HCC) Take 1 capsule (60 mg total) by mouth daily. 90 capsule 07/25/2021 12/25/2021 pantoprazole EC (PROTONIX) 40 MG tabletIndications :Antral gastritis Take 1 tablet (40 mg total) by mouth daily. 90 tablet 1 07/05/2021 10/04/2021 sucralfate 1 G tablet Take 1 g by mouth 4 (four) times daily before meals and nightly. Has been taking PRN 10/04/2021 documented as of this encounter Plan of Treatment Not on file documented as of this encounter Procedures Procedure Name Priority Date/Time Associated Diagnosis Comments VITAMIN B12 / FOLATE Routine 08/02/2021 3:30 PM CDT Iron deficiency anemia, unspecified iron deficiency anemia type IRON SAT PANEL (IRON,IBC,%SAT) Routine 08/02/2021 3:30 PM CDT Iron deficiency anemia, unspecified iron deficiency anemia type COMPREHENSIVE METABOLIC PANEL Routine 08/02/2021 3:30 PM CDT Iron deficiency anemia, unspecified iron deficiency anemia type CBC W/DIFF AUTOMATED Routine 08/02/2021 3:30 PM CDT Iron deficiency anemia, unspecified iron deficiency anemia type FERRITIN Routine 08/02/2021 3:30 PM CDT Iron deficiency anemia, unspecified iron deficiency anemia type documented in this encounter Results * (ABNORMAL) CBC W/DIFF AUTOMATED (08/02/2021 3:30 PM CDT) WBC 5.2 4.8 - 10.8 x10'3/uL 08/02/2021 5:46 PM CDT [facility] RBC 4.21 4.10 - 5.10 x10'6/uL 08/02/2021 5:46 PM CDT [facility] HGB 9.9(L) 12.0 - 16.0 G/DL 08/02/2021 5:46 PM CDT [facility] HCT 33.2(L) 36 - 46 % 08/02/2021 5:46 PM CDT [facility] MCV 78.9(L) 80 - 100 FL 08/02/2021 5:46 PM CDT [facility] MCH 23.5(L) 26.0 - 34.0 PG 08/02/2021 5:46 PM CDT [facility] MCHC 29.8(L) 31.0 - 37.0 G/DL 08/02/2021 5:46 PM CDT [facility] RDW 15.1(H) 11.5 - 14.5 % 08/02/2021 5:46 PM T [facility] PLT 376(H) 150 - 350 x10'3/uL 08/02/2021 5:46 PM T [facility] MPV 10.4 7.0 - 10.4 FL 08/02/2021 5:46 PM T [facility] CBC COMMENT AUTOMATED RBC MORPHOLOGY AND PLATELET EVALUATION NORMAL 08/02/2021 5:46 PM T [facility] NEUTROPHILS % 61.3 50 - 70 % 08/02/2021 5:46 PM T [facility] LYMPHOCYTES % 30.2 18 - 42 % 08/02/2021 5:46 PM CDT [facility] MONOCYTES % 5.2 2.0 - 11.0 % 08/02/2021 5:46 PM CDT [facility] EOSINOPHILS 2.5 1.0 - 3.0 % 08/02/2021 5:46 PM CDT [facility] BASOPHILS 0.6 0.0 - 1.0 % 08/02/2021 5:46 PM CDT [facility] IMMATURE GRANS % 0.2 0.00 - 0.43 % 08/02/2021 5:46 PM CDT [facility] ABS. NEUTROPHILS TOTAL 3.22 1.69 - 7.81 x10'3/uL 08/02/2021 5:46 PM CDT [facility] ABS. LYMPHOCYTES 1.58 0.21 - 5.42 x10'3/uL 08/02/2021 5:46 PM CDT [facility] ABS. MONOCYTES 0.27 0.04 - 1.37 x10'3/uL 08/02/2021 5:46 PM CDT [facility] ABS. EOSINOPHILS 0.13 0.00 - 0.68 x10'3/uL 08/02/2021 5:46 PM CDT [facility] ABS. BASOPHILS 0.03 0.00 - 0.08 x10'3/uL 08/02/2021 5:46 PM CDT [facility] ABS. IMMATURE GRANULOCYTES 0.01 0.00 - 0.06 x10'3/uL 08/02/2021 5:46 PM CDT [facility] 08/02/2021 3:30 PM CDT us Josh Akhtar DO LABORATORY Final Result [facility] [address] [place] [address], [place] [phone] * (ABNORMAL) COMPREHENSIVE METABOLIC PANEL (08/02/2021 3:30 PM CDT) [facility] GLUCOSE 79 70 - 99 MG/DL 08/02/2021 6:20 PM CDT [facility] BUN 13 7 - 18 MG/DL 08/02/2021 6:20 PM CDT [facility] CREATININE S/P/B 0.87 0.55 - 1.02 MG/DL 08/02/2021 6:20 PM CDT [facility] SODIUM S/P/B 139 136 - 145 MMOL/L 08/02/2021 6:20 PM T [facility] POTASSIUM S/P/B 3.8 3.5 - 5.1 MMOL/L 08/02/2021 6:20 PM CDT [facility] CHLORIDE S/P/B 104 100 - 108 MMOL/L 08/02/2021 6:20 PM T [facility] CO2 26.6 21 - 32 MMOL/L 08/02/2021 6:20 PM CDT [facility] CALCIUM S/P/B 8.6 8.5 - 10.1 MG/DL 08/02/2021 6:20 PM T [facility] BILIRUBIN TOTAL S/P/B 0.3 0.2 - 1.2 MG/DL 08/02/2021 6:20 PM T [facility] Comment: THIS ASSAY IS NOT RECOMMENDED FOR PATIENTS UNDERGOING TREATMENT WITH ELTROMBOPAG DUE TO THE POTENTIAL FOR FALSELY ELEVATED RESULTS. TOTAL PROTEIN S/P/B 7.5 6.4 - 8.2 G/DL 08/02/2021 6:20 PM T [facility] ALBUMIN S/P/B 4.3 3.4 - 5.0 G/DL 08/02/2021 6:20 PM T [facility] AST 16 15 - 37 U/L 08/02/2021 6:20 PM T [facility] ALT 19 14 - 55 U/L 08/02/2021 6:20 PM T [facility] ALKALINE PHOSPHATASE S/P/B 45(L) 50 - 136 U/L 08/02/2021 6:20 PM CDT [facility] ANION GAP 8.4 5 - 15 MMOL/L 08/02/2021 6:20 PM CDT [facility] BUN CREATININE RATIO 14.9 6 - 26 08/02/2021 6:20 PM CDT [facility] A/G RATIO 1.3 1.0 - 2.0 RATIO 08/02/2021 6:20 PM CDT [facility] GFR ESTIMATE 89(L) >90 ML/MIN/1.7 3 M2 08/02/2021 6:20 PM CDT [facility] Comment: NOTE: eGFR is not calculated for patients <18 years of age. This is an estimated GFR calculation using the new CKD EPI creatinine equation without race and so does not require a correction factor for race. This estimated GFR should not be used for calculating drug doses. 08/02/2021 3:30 PM CDT us Josh Akhtar DO LABORATORY Final Result [facility] [address] [place] [address], [place] [phone] * VITAMIN B12 / FOLATE (08/02/2021 3:30 PM CDT) VITAMIN B12 S/P/B 379 193 - 986 PG/ML 08/03/2021 9:37 AM CDT [facility] FOLATE >20.0 8.6 - 58.9 NG/ML 08/03/2021 9:37 AM CDT [facility] 08/02/2021 3:30 PM CDT us Josh Akhtar DO LABORATORY Final Result [facility] [address] [place] [address], [place] [phone] * (ABNORMAL) FERRITIN (08/02/2021 3:30 PM CDT) FERRITIN 7.0(L) 8.0 - 388.0 NG/ML 08/03/2021 9:37 AM CDT [facility] 08/02/2021 3:30 PM CDT Josh Akhtar DO LABORATORY Final Result Performing Organization Address [facility] de Phone Number [facility] [address] [place] [address], [place] [phone] * (ABNORMAL) IRON SAT PANEL (IRON,IBC,%SAT) (08/02/2021 3:30 PM CDT) IRON 42(L) 50 - 170 MCG/DL 08/03/2021 9:37 AM CDT [facility] IRON BINDING CAPACITY 439 250 - 450 MCG/DL 08/03/2021 9:37 AM CDT [facility] IRON SATURATION 10(L) 20 - 55 % 9:37 AM CDT [facility] 08/02/2021 3:30 PM CDT Josh Akhtar DO LABORATORY Final Result Performing Organization Address [facility] Co de Phone Number [facility] [address] [place] [address], [place] [phone] documented in this encounter Visit Diagnoses Diagnosis Iron deficiency anemia, unspecified iron deficiency anemia type documented in this encounter Additional Health Concerns Assessment Noted Time PHQ-9 Depression Total Score: 0 02/29/20 21 9:14 AM BUCKLE STRAP DRUM OPERATOR documented as of this encounter Care Teams Inward Toll Operator Relationship Specialty Start Date End Date Jacquie Fair NP [address] [place] [address] PCP - General NURSE PRACTITIONER 06/20/21 documented as of this encounter
--- OUTSIDE RECORDS SUMMARY | 2024-02-27 09:35 | XMS_ITS | Encounter Summary ---
Author Organization [facility] Address [address] [place] [address]. [place] [address] [place] [address] Care Team Providers Care Electronics Design Engineer Name Role Phone John Pinedo MD Primary Care Provider [phone] [phone] Encounter Details Date Type Department Care Team (Latest Contact Info) Description 02/28/2021 1:40 PM LEARNING COACH - 02/28/2021 11:59 PM LEARNING COACH Hospital Encounter [facility] [address] [place], [place] [id number] John Pinedo MD [address] [facility] [facility] [address] [address] Discharge Disposition: Home or Self Care (Routine [...] on file Legal Sex Female 9:41 PM LEARNING COACH Gender Identity Female 04/24/2021 2:22 PM LEARNING COACH Sexual Orientation Choose not to disclose 2021 2:22 PM LEARNING COACH COVID-19 Exposure Response Date Recorded In the last month, have you been in contact with someone who was confirmed or suspected to have Coronavirus / COVID-19? No / Unsure 02/28/2021 8:52 AM LEARNING COACH documented as of this encounter Medications at Time of Discharge diclofenac EC 50 MG tablet Take 1 tablet by mouth daily as needed. 11/04/2020 07/05/2021 DULoxetine 60 MG capsule Take 1 capsule by mouth daily. 10/18/2020 03/21/2021 ibuprofen 600 MG tablet Take by mouth as needed. 12/24/2020 07/05/2021 nitrofurantoin, macrocrystal-mono hydrate, 100 MG capsuleIndication s:Dysuria Take 1 capsule (100 mg total) by mouth 2 (two) times daily for 5 days. 10 capsule 02/28/2021 03/05/2021 phenazopyridine (PYRIDIUM) 200 MG tabletIndications :Dysuria Take 1 tablet (200 mg total) by mouth 3 (three) times daily as needed for Pain. 6 tablet 02/28/2021 03/02/2021 documented as of this encounter Progress Notes * John Pinedo MD - 02/28/2021 1:40 PM CST Results reviewed, mildly abnormal for patient. Please call patient with results (see letter for details), print letter and mail to patient. Thanks! NING COACH documented in this encounter Plan of Treatment Not on file documented as of this encounter Procedures Procedure Name Priority Date/Time Associated Diagnosis Comments CBC W/DIFF AUTOMATED Today 02/28/2021 9:44 AM LEARNING COACH History of anemia documented in this encounter Results * (ABNORMAL) CBC W/DIFF AUTOMATED (02/28/2021 9:44 AM LEARNING COACH) WBC 4.6 4.4 - 11.0 x10'3/uL 02/28/2021 1:49 PM LEARNING COACH [facility] RBC 4.26(L) 4.50 - 5.10 x10'6/uL 02/28/2021 1:49 PM LEARNING COACH [facility] HGB 12.1(L) 12.3 - 15.3 G/DL 02/28/2021 1:49 PM [facility] HCT 38.4 35.9 - 44.6 % 02/28/2021 1:49 PM [facility] MCV 90.1 80.0 - 96.0 FL 02/28/2021 1:49 PM [facility] MCH 28.4 25.3 - 30.9 PG 02/28/2021 1:49 PM [facility] MCHC 31.5 31.0 - 34.1 G/DL 02/28/2021 1:49 PM [facility] RDW 12.8 12.4 - 15.1 % 02/28/2021 1:49 PM [facility] PLT 290 151 - 353 x10'3/uL 02/28/2021 1:49 PM [facility] MPV 10.3 9.6 - 12.0 FL 02/28/2021 1:49 PM [facility] RBC MORPHOLOGY NORMAL 02/28/2021 1:49 PM [facility] PLT MORPH. NORMAL 02/28/2021 1:49 PM [facility] WBC MORPHOLOGY NORMAL 02/28/2021 1:49 PM [facility] LYMPHOCYTES % 35.0 15.8 - 45.0 % 02/28/2021 1:49 PM [facility] NEUTROPHILS % 54.1 42.1 - 71.9 % 02/28/2021 1:49 PM [facility] MONOCYTES % 6.3 5.7 - 12.5 % 02/28/2021 1:49 PM [facility] EOSINOPHILS 3.5 0.0 - 5.6 % 02/28/2021 1:49 PM LEARNING COACH [facility] BASOPHILS 0.9 0.0 - 1.3 % 02/28/2021 1:49 PM LEARNING COACH [facility] ABS. NEUTROPHILS 2.47 1.40 - 6.00 x10'3/uL 02/28/2021 1:49 PM LEARNING COACH [facility] IMMATURE GRANS % 0.2 0.0 - 0.5 % 02/28/2021 1:49 PM LEARNING COACH [facility] ABS. LYMPHOCYTES 1.60 0.80 - 4.70 x10'3/uL 02/28/2021 1:49 PM LEARNING COACH [facility] 02/28/2021 9:44 AM LEARNING COACH us John Pinedo MD LABORATORY Final Res ult [facility] [address] [place] [address], documented in this encounter Visit Diagnoses Diagnosis History of anemia Personal history of diseases of blood and blood-forming organs documented in this encounter Additional Health Concerns Assessment Noted Time PHQ-9 Depression Total Score: 0 02/29/20 9:14 AM LEARNING COACH documented as of this encounter Care Teams Electronics Design Engineer Relationship Specialty Start Date End Date John Pinedo MD PCP - General INTERNAL MEDICINE 02/28/21 05/28/21 documented as of this encounter
--- OUTSIDE RECORDS SUMMARY | 2024-02-27 09:35 | XMS_ITS | Encounter Summary ---
Author Organization [facility] Address [address] [place] [address]. [place] [address] [place] [address] Care Team Providers Care Time Study Clerk Name Role Phone Jacquie Fair NP Primary Care Provider [phone] [phone] Encounter Details Date Type Department Care Team (Late st Contact Info) Description 08/02/2021 Orders Only [facility] [address] [place] [address] Josh Akhtar, DO [address] [facility] [address] [place] [phone] Social History Tobacco Use Types Packs/Day [...] on file Legal Sex Female 9:41 PM FIRE SUPPORT SPECIALIST Gender Identity Female 04/24/2021 2:22 PM FIRE SUPPORT SPECIALIST Sexual Orientation Choose not to disclose 2021 2:22 PM FIRE SUPPORT SPECIALIST COVID-19 Exposure Response Date Recorded In the last 10 days, have yo u been in contact with someone who was confirmed or suspected to have Coronavirus/COVID-19? No / Unsure 07/04/2021 7:34 PM CDT documented as of this encounter Plan of Treatment Not on file documented as of this encounter Results * (ABNORMAL) IRON SAT PANEL (IRON,IBC,%SAT) (08/02/2021 3:30 PM CDT) IRON 42(L) 50 - 170 MCG/DL 08/03/2021 9:37 AM CDT [facility] IRON BINDING CAPACITY 439 250 - 450 MCG/DL 08/03/2021 9:37 AM CDT [facility] IRON SATURATION 10(L) 20 - 55 % 9:37 AM CDT [facility] 08/02/2021 3:30 PM CDT us Josh Akhtar DO LABORATORY Final Result Performing Organization Address [facility]/ZIP Co de Phone Number [facility] [address] [place] [address], [place] [phone] * (ABNORMAL) FERRITIN (08/02/2021 3:30 PM CDT) FERRITIN 7.0(L) 8.0 - 388.0 NG/ML 08/03/2021 9:37 AM CDT [facility] 08/02/2021 3:30 PM CDT us Josh Akhtar DO LABORATORY Final Result [facility] [address] [place] [address], [place] [phone] * VITAMIN B12 / FOLATE (08/02/2021 3:30 PM CDT) VITAMIN B12 S/P/B 379 193 - 986 PG/ML 08/03/2021 9:37 AM CDT [facility] FOLATE >20.0 8.6 - 58.9 NG/ML 08/03/2021 9:37 AM CDT [facility] 08/02/2021 3:30 PM CDT us Josh Akhtar DO LABORATORY Final Result [facility] [address] [place] [address], [place] [phone] * (ABNORMAL) COMPREHENSIVE METABOLIC PANEL (08/02/2021 3:30 PM CDT) GLUCOSE 79 70 - 99 MG/DL 08/02/2021 6:20 PM CDT [facility] BUN 13 7 - 18 MG/DL 08/02/2021 6:20 PM CDT [facility] CREATININE S/P/B 0.87 0.55 - 1.02 MG/DL 08/02/2021 6:20 PM CDT [facility] SODIUM S/P/B 139 136 - 145 MMOL/L 08/02/2021 6:20 PM CDT [facility] POTASSIUM S/P/B 3.8 3.5 - 5.1 MMOL/L 08/02/2021 6:20 PM T [facility] CHLORIDE S/P/B 104 100 - 108 MMOL/L 08/02/2021 6:20 PM T [facility] CO2 26.6 21 - 32 MMOL/L 08/02/2021 6:20 PM CDT [facility] CALCIUM S/P/B 8.6 8.5 - 10.1 MG/DL 08/02/2021 6:20 PM T [facility] BILIRUBIN TOTAL S/P/B 0.3 0.2 - 1.2 MG/DL 08/02/2021 6:20 PM CDT [facility] Comment: THIS ASSAY IS NOT RECOMMENDED FOR PATIENTS UNDERGOING TREATMENT WITH ELTROMBOPAG DUE TO THE POTENTIAL FOR FALSELY ELEVATED RESULTS. TOTAL PROTEIN S/P/B 7.5 6.4 - 8.2 G/DL 08/02/2021 6:20 PM CDT [facility] ALBUMIN S/P/B 4.3 3.4 - 5.0 G/DL 08/02/2021 6:20 PM CDT [facility] AST 16 15 - 37 U/L 08/02/2021 6:20 PM T [facility] ALT 19 14 - 55 U/L 08/02/2021 6:20 PM T [facility] ALKALINE PHOSPHATASE S/P/B 45(L) 50 - 136 U/L 08/02/2021 6:20 PM T [facility] ANION GAP 8.4 5 - 15 MMOL/L 08/02/2021 6:20 PM T [facility] BUN CREATININE RATIO 14.9 6 - 26 08/02/2021 6:20 PM T [facility] A/G RATIO 1.3 1.0 - 2.0 RATIO 08/02/2021 6:20 PM [facility] GFR ESTIMATE 89(L) >90 ML/MIN/1.7 3 M2 08/02/2021 6:20 PM T [facility] Comment: NOTE: eGFR is not calculated for patients <18 years of age. This is an estimated GFR calculation using the new CKD EPI creatinine equation without race and so does not require a correction factor for race. This estimated GFR should not be used for calculating drug doses. 08/02/2021 3:30 PM CDT us Josh Akhtar DO LABORATORY Final Result [facility] [address] [place] [address], [place] [phone] * (ABNORMAL) CBC W/DIFF AUTOMATED (08/02/2021 3:30 PM CDT) [facility] Signature WBC 5.2 4.8 - 10.8 x10'3/uL 08/02/2021 5:46 PM CDT [facility] RBC 4.21 4.10 - 5.10 x10'6/uL 08/02/2021 5:46 PM CDT [facility] HGB 9.9(L) 12.0 - 16.0 G/DL 08/02/2021 5:46 PM CDT [facility] HCT 33.2(L) 36 - 46 % 08/02/2021 5:46 PM CDT [facility] MCV 78.9(L) 80 - 100 FL 08/02/2021 5:46 PM CDT [facility] MCH 23.5(L) 26.0 - 34.0 PG 08/02/2021 5:46 PM CDT [facility] MCHC 29.8(L) 31.0 - 37.0 G/DL 08/02/2021 5:46 PM CDT [facility] RDW 15.1(H) 11.5 - 14.5 % 08/02/2021 5:46 PM CDT [facility] PLT 376(H) 150 - 350 x10'3/uL 08/02/2021 5:46 PM CDT [facility] MPV 10.4 7.0 - 10.4 FL 08/02/2021 5:46 PM CDT [facility] CBC COMMENT AUTOMATED RBC MORPHOLOGY AND PLATELET EVALUATION NORMAL 08/02/2021 5:46 PM CDT [facility] NEUTROPHILS % 61.3 50 - 70 % 08/02/2021 5:46 PM CDT [facility] LYMPHOCYTES % 30.2 18 - 42 % 08/02/2021 5:46 PM CDT [facility] MONOCYTES % 5.2 2.0 - 11.0 % 08/02/2021 5:46 PM CDT [facility] EOSINOPHILS 2.5 1.0 - 3.0 % 08/02/2021 5:46 PM CDT [facility] BASOPHILS 0.6 0.0 - 1.0 % 08/02/2021 5:46 PM CDT [facility] IMMATURE GRANS % 0.2 0.00 - 0.43 % 08/02/2021 5:46 PM CDT [facility] ABS. NEUTROPHILS TOTAL 3.22 1.69 - 7.81 x10'3/uL 08/02/2021 5:46 PM CDT [facility] ABS. LYMPHOCYTES 1.58 0.21 - 5.42 x10'3/uL 08/02/2021 5:46 PM CDT [facility] ABS. MONOCYTES 0.27 0.04 - 1.37 x10'3/uL 08/02/2021 5:46 PM CDT [facility] ABS. EOSINOPHILS 0.13 0.00 - 0.68 x10'3/uL 08/02/2021 5:46 PM CDT [facility] ABS. BASOPHILS 0.03 0.00 - 0.08 x10'3/uL 08/02/2021 5:46 PM CDT [facility] ABS. IMMATURE GRANULOCYTES 0.01 0.00 - 0.06 x10'3/uL 08/02/2021 5:46 PM CDT [facility] 08/02/2021 3:30 PM CDT us Josh Akhtar DO LABORATORY Final Result [facility] [address] [place] [address], documented in this encounter Visit Diagnoses Diagnosis Iron deficiency anemia, unspecified iron deficiency anemia type- Primary documented in this encounter Additional Health Concerns Assessment Noted Time PHQ-9 Depression Total Score: 0 02/29/20 21 9:14 AM FIRE SUPPORT SPECIALIST documented as of this encounter Care Teams Time Study Clerk Relationship Specialty Start Date End Date Jacquie Fair NP [address] [place] [address] PCP - General NURSE PRACTITIONER 06/20/21 documented as of this encounter
--- OUTSIDE RECORDS SUMMARY | 2024-02-27 09:35 | XMS_ITS | Encounter Summary ---
Author Organization [facility] Address [address] [place] [address]. [place] [address] [place] [address] Care Team Providers Care Medical Referral Coordinator Name Role Phone Nav Carrillo MD Primary Care Provider [phone] [phone] Reason for Visit * Reason Onset Date Comments Medication Request 03/21/2021 Encounter Details Date Type Department Care Team (Late st Contact Info) Description 03/21/2021 Telephone [facility] Family & Internal Medicine [facility] [address] [place] [address] Nav Carrillo MD [address] [address] Medication Request Social History Tobacco Use Types [...] on file Legal Sex Female 9:41 PM PAINTER HELPER Gender Identity Female 04/24/2021 2:22 PM PAINTER HELPER Sexual Orientation Choose not to disclose 2021 2:22 PM PAINTER HELPER COVID-19 Exposure Response Date Recorded In the last month, have you been in contact with someone who was confirmed or suspected to have Coronavirus / COVID-19? No / Unsure 03/09/2021 4:41 PM PAINTER HELPER documented as of this encounter Progress Notes * Latisha Hancock RN - 03/21/2021 1:35 PM CST Rx sent for patient. TER HELPER * Connie Hui - 03/21/2021 12:01 PM CST .. Medication and strength: Duloxetine 60 mg [facility]acy: [facility] Call back #: [phone] Last office visit at this office: Last visit with NAV CARRILLO in [facility] was on: 02/28/2021 in [facility] Future appointment scheduled: Future Appointments Date Time Provider Department Center 03/21/2021 3:30 PM Zoya Tuttle, STRAW HAT PLUNGER OPERATOR [facility] 03/24/2021 3:30 PM Libia Romero, PT [facility] 05/23/2021 8:20 AM Addison Wallace MD [facility] 05/30/2021 3:00 PM Nav Carrillo MD [facility] TER HELPER documented in this encounter Plan of Treatment Not on file documented as of this encounter Visit Diagnoses Diagnosis Seasonal depression (CMS/[facility])- Primary Other specified episodic mood disorder documented in this encounter Additional Health Concerns Assessment Noted Time PHQ-9 Depression Total Score: 0 02/29/20 9:14 AM PAINTER HELPER documented as of this encounter Care Teams Medical Referral Coordinator Relationship Specialty Start Date End Date Nav Carrillo MD PCP - General INTERNAL MEDICINE 02/28/21 05/28/21 documented as of this encounter
--- OUTSIDE RECORDS SUMMARY | 2024-02-27 09:35 | XMS_ITS | Encounter Summary ---
Author Organization [facility] Address [address] [place] [address]. [place] [address] [place] [address] Care Team Providers Care Pole Maker Name Role Phone Jacquie Fair NP Primary Care Provider [phone] Reason for Referral * Audiology Exam (Routine) - Closed Specialty Diagnoses / Procedures Referred By Contmarcella t Referred To Contact AUDIOLOGY / [facility] Audiology Diagnoses Bilateral hearing loss, unspecified hearing loss type Jacquie Fair NP [address] [place] [address] Phone: tel: fax: [facility] Audiology [address] [place] [address] Phone: tel: fax: Referral ID Status Reason Start Date Expiration Date V isits Requested Visits Authorized [id number] Closed Specialty Services 07/05/2021 08/04/2022 1 1 Reason for Visit * Reason Comments Physical est care, ER said sh joe has ulcer Ear Problem she doesnt hear very well Encounter Details Date Type Department Care Team (Late st Contact Info) Description 07/05/2021 8:20 AM CDT Office Visit [facility] Family [facility] - [place] [address] [place], [place] [id number] Jacquie Fair NP [address] [place] [address] Physical (est care, ER said she has ulcer); Ear Problem (she doesnt hear very well) Social History Tobacco Use Types Packs/Day Years [...] on file Legal Sex Female 9:41 PM MEMBER SERVICES REPRESENTATIVE Gender Identity Female 04/24/2021 2:22 PM MEMBER SERVICES REPRESENTATIVE Sexual Orientation Choose not to disclose 2021 2:22 PM MEMBER SERVICES REPRESENTATIVE COVID-19 Exposure Response Date Recorded In the last 10 days, have yo u been in contact with someone who was confirmed or suspected to have Coronavirus/COVID-19? No / Unsure 07/04/2021 7:34 PM CDT documented as of this encounter Last Filed Vital Signs Vital Sign Reading Time Taken Comments Blood Pressure 95/69 07/05/2021 8:11 AM CDT Pulse 86 07/05/2021 8:11 AM CDT Temperature 37.3 ??C (99.2 ??F) 07/05/2021 8:11 AM CD T Respiratory Rate 18 07/05/2021 8:11 AM CDT Oxygen Saturation 100% 07/05/2021 8:11 AM CDT Inhaled Oxygen Concentration - - Weight 44 kg (97 lb) 07/05/2021 8:11 AM CDT Height 157.5 cm (5' 2 ) 07/05/2021 8:11 AM CDT Body Mass Index 17.74 07/05/2021 8:11 AM CDT documented in this encounter Progress Notes * Jacquie Fair NP - 07/05/2021 8:20 AM CDT Reason for Visit: Physical (est care, ER said she has ulcer) and Ear Problem (she doesnt hear very well) History of Present Illness: Shagufta is a 35-year-old female who presents to [facility] to establish care as a new patient and for a ER follow-up. Patient was seen at [facility] on 06/14 due to complaints of epigastric pain for approximately 5 days. She reports having a sharp pain that radiates to the back. Initially describes her pain as a severe hunger pain that then turned into a sharp, sweet squeezing pain. She recalls remembering having to get up in the middle night to go eat due to her hunger pains. She denies any particular foods that she will eat that would cause her discomfort. Lab work was obtained that noted an elevated CT scan was performed that noted an elevated lipase level of 757, hemoglobin of 10.6. CT scan was obtained that noted severe antral gastritis. No pancreatitis. Was discharged home on Protonix 40 mg daily, Carafate 1 g 4 times daily, dicyclomine 10 mg 4 times daily as needed. Patient reports she still has epigastric discomfort but has improved some with use of Carafate PRN.Patient is no longer taking the Protonix as she ran out of this prescription. Is no longer taking the dicyclomine. She denies any complaints of diarrhea or constipation, nausea or vomiting. Pt is a an occasional current smoker. Reports hx of low magnesium. Will recheck level. Denies any history of any stomach ulcers. Does report history of C-Diff due to multiple antibiotic use in the past from her previous provider. Patient did have a colonoscopy in 2008. Patient tells me that she has always struggled with weight gain. 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 She recalls having lab work obtained after her radiation therapy and her TSH has been within the limits. She has been suffering from bilateral hearing loss. She reports it is becoming more noticeable by family and friends and she is interested in a referral to audiology. Medications: Current Outpatient Medications: ??? DULoxetine 60 [...] Has been taking PRN, Disp: , Rfl: Allergies Allergen Reactions ??? Cephalosporins Diarrhea and Vomiting CDIF ??? Codeine Seizure ??? Latex Rash ??? Penicillins Rash Past Medical History: Diagnosis Date ??? [...] on file. ROS: Review of Systems Constitutional: Negative for [...] constipation, diarrhea, heartburn, melena, nausea and vomiting. Epigastric pain Genitourinary: Negative for dysuria, flank pain, frequency, hematuria and urgency. Musculoskeletal: Negative for back pain, falls, joint pain, myalgias and neck pain. Skin: Negative for itching and rash. Neurological: Negative for dizziness, tingling, tremors, sensory change, speech change, focal weakness, seizures, loss of consciousness, weakness and headaches. Endo/Heme/Allergies: Negative for environmental allergies and polydipsia. Does not bruise/bleed easily. Psychiatric/Behavioral: Negative for depression, hallucinations, memory loss, substance abuse and suicidal ideas. The patient is not nervous/anxious and does not have insomnia. Physical Exam Constitutional: General: She is not in acute distress. Appearance: She is well-developed. HENT: Head: Normocephalic and atraumatic. Right Ear: Hearing, tympanic membrane, ear canal and external ear normal. Left Ear: Hearing, tympanic membrane, ear canal and external ear normal. Nose: Nose normal. Mouth/Throat: Pharynx: Uvula midline. No oropharyngeal exudate or posterior oropharyngeal erythema. Eyes: General: Lids are normal. Lids are everted, no foreign bodies appreciated. No scleral icterus. Pupils: Pupils are equal, round, and reactive to light. Neck: Thyroid: No thyromegaly. Vascular: No carotid bruit. Trachea: No tracheal deviation. Cardiovascular: Rate and Rhythm: Normal rate and regular rhythm. Heart sounds: Normal heart sounds. No murmur heard. Pulmonary: Effort: Pulmonary effort is normal. No respiratory distress. Breath sounds: Normal breath sounds. No wheezing or rales. Chest: Chest wall: No tenderness. Abdominal: General: Bowel sounds are normal. There is no distension. Palpations: Abdomen is soft. There is no mass. Tenderness: There is abdominal tenderness in the epigastric area. There is no guarding or rebound. Comments: Tenderness to epigastric region Musculoskeletal: General: No tenderness or deformity. Cervical back: Normal range of motion and neck supple. No edema. Lymphadenopathy: Cervical: No cervical adenopathy. Skin: General: Skin is warm and dry. Coloration: Skin is not pale. Findings: No erythema or rash. Neurological: Mental Status: She is alert and oriented to person, place, and time. Deep Tendon Reflexes: Reflexes are normal and symmetric. Psychiatric: Behavior: Behavior normal. Thought Content: Thought content normal. Judgment: Judgment normal. Filed Vitals: 07/05/21 0811 BP: 95/69 Pulse: 86 Resp: 18 Temp: 99.2 ??F (37.3 ??C) TempSrc: Temporal SpO2: 100% Weight: 44 kg (97 lb) Height: 5' 2 (1.575 m) Screening forms: PHQ-9: PHQ-9: Over the last two weeks, how often have you been bothered by any of the following problems? 02/28/2021 LITTLE INTEREST OR PLEASURE IN DOING THINGS 0-Not at All FEELING DOWN, DEPRESSSED,OR HOPELESS 0-Not at All PHQ2 DEPRESSION TOTAL SCORE 0 DEPRESSION SCREENING TOTAL SCORE 0 Assessment/Recommendations/Plan Encounter Diagnose(s) ICD-10-CM ICD-9-CM SNOMED CT(R) 1. Antral gastritis K29.50 535.40 GASTRITIS H. PYLORI UREA BREATH TEST H. PYLORI UREA BREATH TEST pantoprazole EC (PROTONIX) 40 MG tablet 2. Anemia, unspecified type D64.9 285.9 ANEMIA CBC W/DIFF AUTOMATED CBC W/DIFF AUTOMATED IRON SAT PANEL (IRON,IBC,%SAT) FERRITIN IRON SAT PANEL (IRON,IBC,%SAT) FERRITIN 3. Screening for lipoid disorders Z13.220 V77.91 PATIENT ENCOUNTER STATUS LIPID PANEL LIPID PANEL 4. Elevated lipase R74.8 790.5 HIGH LIPASE LEVEL IN SERUM LIPASE LIPASE 5. Hx of Mario thyroiditis Z86.39 V12.29 H/O: THYROID DISORDER THYROID PEROXIDASE ANTIBODY TSH W/REFLEX THYROID PEROXIDASE ANTIBODY TSH W/REFLEX 6. Need for hepatitis C screening test Z11.59 V73.89 VIRAL SCREENING STATUS HEPATITIS C ANTIBODY 7. Hypomagnesemia E83.42 275.2 HYPOMAGNESEMIA MAGNESIUM 8. Bilateral hearing loss, unspecified hearing loss type H91.93 389.9 BILATERAL HEARING LOSS Ambulatory referral to Audiology We will recheck CBC due to showing anemia and recheck lipase level to be sure it is trending down. We will check for H pylori as well. Hx of low mag. Will recheck level. Avoid fatty, fried, spicy, acidic foods Avoid smoking Cut back on alcohol and caffeine intake if not taking in moderation Avoid NSAIDS or aspirin Limit stress Avoid lying down to 3 meals after eating a meal. Will refer pt to audiology d/t hearing loss. Will notify pt once lab work is back. I spent 40 minutes today reviewing the patient's medical record, obtaining history, performing an exam, ordering medications, tests, and/or procedures, documenting in the medical record, referring and/or communicating with other health care providers, counseling and educating the patient/family/caregiver and reviewing and communicating test results. Follow up: 1 month, will discuss at future office visit pt's PMH, preventive screens. JACQUIE FAIR NP 07/05/2021 9:51 AM Cosigned by Ady Page MD at 07/05/2021 10:00 AM CDT documented in this encounter Plan of Treatment Scheduled Referrals Name Type Priority Associated Diagnoses Orde r Schedule Ambulatory referral to Audiology Referral Routine Bilateral hearing loss, unspecified hearing loss type Ordered: 07/05/2021 documented as of this encounter Procedures Procedure Name Priority Date/Time Associated Diagnosis Comments IRON SAT PANEL (IRON,IBC,%SAT) Routine 06/07/2022 12:38 PM CDT Anemia, unspecified type FERRITIN Routine 06/07/2022 12:38 PM CDT Anemia, unspecified type H. PYLORI UREA BREATH TEST Routine 07/05/2021 9:27 AM CDT Antral gastritis TSH W/REFLEX Routine 07/05/2021 9:27 AM CDT Hx of Mario thyroiditis THYROID PEROXIDASE ANTIBODY Routine 07/05/2021 9:27 AM CDT Hx of Mario thyroiditis IRON SAT PANEL (IRON,IBC,%SAT) Routine 07/05/2021 9:27 AM CDT LIPID PANEL Routine 07/05/2021 9:27 AM CDT Screening for lipoid disorders CBC W/DIFF AUTOMATED Routine 07/05/2021 9:27 AM CDT Anemia, unspecified type LIPASE Routine 07/05/2021 9:27 AM CDT Elevated lipase FERRITIN Routine 07/05/2021 9:27 AM CDT documented in this encounter Results * FERRITIN (06/07/2022 12:38 PM CDT) FERRITIN 48 16 - 154 ng/mL [facility] 06/07/2022 12:3 8 PM CDT 06/07/2022 12:39 PM CDT Narrative [facility] [place] - 06/08/2022 7:33 AM CDT FASTING:NO FASTING: NO Resulting Agency Comment Performing Organization Information: ?Site ID: [place] ?Name: [facility] ?Address: [address] [place] [id number] ?Director: Nicolle Roach MD Jacquieluis Fair NP LABORATORY Final Res ult Performing Organization Address City/[facility] Co de Phone Number [facility] [place] [facility] [address] [place], [place] [address] * IRON SAT PANEL (IRON,IBC,%SAT) (06/07/2022 12:38 PM CDT) Pathologist [facility] IRON 91 40 - 190 mcg/dL [facility] IRON BINDING CAPACITY 300 250 - 450 mcg/dL (calc) [facility] % IRON SATURATION 30 16 - 45 % (calc) [facility] 06/07/2022 12:3 8 PM CDT 06/07/2022 12:39 PM CDT Narrative [facility] - [place] - 06/08/2022 7:33 AM CDT FASTING:NO FASTING: NO Resulting Agency Comment Performing Organization Information: ?Site ID: [place] ?Name: [employer] ?Address: [address] [place], [place] [address]ner [facility] [place] [address] ?Director: Nicolle Roach MD Jacquieluis Fair CORE INSPECTOR LABORATORY Final Res ult Performing Organization Address City/[facility] de Phone Number [facility] [place] [facility] [address] [place], [place] [address] * (ABNORMAL) FERRITIN (07/05/2021 9:27 AM CDT) FERRITIN 1(L) 16 - 154 ng/mL [facility] 07/05/2021 9:27 AM CDT 07/05/2021 9:30 AM CDT Narrative [facility] [place] - 07/06/2021 5:29 PM CDT FASTING:NO FASTING: NO Jacquieluis Fair CORE INSPECTOR LABORATORY Final Res ult Performing Organization Address [facility] de Phone Number [facility] [place] [facility] [address] [place] [address] * (ABNORMAL) IRON SAT PANEL (IRON,IBC,%SAT) (07/05/2021 9:27 AM CDT) IRON 24(L) 40 - 190 mcg/dL [facility] IRON BINDING CAPACITY 409 250 - 450 mcg/dL (calc) [facility] % IRON SATURATION 6(L) 16 - 45 % (calc) [facility] 07/05/2021 9:27 AM CDT 07/05/2021 9:30 AM CDT Narrative [facility] [place] - 07/06/2021 5:29 PM CDT FASTING:NO FASTING: NO Jacquie Fair CORE INSPECTOR LABORATORY Final Res ult Performing Organization Address [facility] de Phone Number [facility] [place] [address] [place] [address] * TSH W/REFLEX (07/05/2021 9:27 AM CDT) TSH 0.80 mIU/L [facility] Comment: ?Reference Range ?> or = 20 Years ??0.40-4.50 ? Ranges ?First trimester ?0.26-2.66 ?Second trimester ?? 0.55-2.73 ?Third trimester ?0.43-2.91 07/05/2021 9:27 AM CDT 07/05/2021 9:30 AM CDT Narrative [facility] [place] - 07/06/2021 5:29 PM CDT FASTING:NO FASTING: NO Jacquie Fair CORE INSPECTOR LABORATORY Final Res ult Performing Organization Address [facility] de Phone Number [facility] [place] [facility] [address] [place] [address] * THYROID PEROXIDASE ANTIBODY (07/05/2021 9:27 AM CDT) ANTITHY PEROXID AB <1 <9 IU/mL [facility] 07/05/2021 9:27 AM CDT 07/05/2021 9:30 AM CDT Narrative [facility] [place] - 07/06/2021 5:29 PM CDT FASTING:NO FASTING: NO Jacquie Fair CORE INSPECTOR LABORATORY Final Res ult Performing Organization Address [facility] de Phone Number [facility] [place] [facility] [address] [place] [address] * LIPID PANEL (07/05/2021 9:27 AM CDT) CHOLESTEROL 152 <200 mg/dL [facility] HDL 58 > OR = 50 mg/dL [facility] TRIGLYCERIDES 68 <150 mg/dL [facility] LDL (CALCULATED) 80 mg/dL (calc) [facility] Comment: Reference range: <100 Desirable range <100 mg/dL for primary prevention; ?? <70 mg/dL for patients with CHD or diabetic patients with > or = 2 CHD risk factors. LDL-C is now calculated using the Lake calculation, which is a validated novel method providing better accuracy than the Friedewald equation in the estimation of LDL-C. Dominick SS et al. ROBERTO CARLOS. 2013;310(19): 5908-0954 (http://education.Top Hat/faq/MGJ054) CHOL/HDL RATIO 2.6 <5.0 (calc) [facility] NON HDL CHOLESTEROL 94 <130 mg/dL (calc) [facility] Comment: For patients with diabetes plus 1 major ASCVD risk factor, treating to a non-HDL-C goal of <100 mg/dL (LDL-C of <70 mg/dL) is considered a therapeutic option. 07/05/2021 9:27 AM CDT 07/05/2021 9:30 AM CDT Narrative [facility] [place] - 07/06/2021 5:29 PM CDT FASTING:NO FASTING: NO Jacquie Fair CORE INSPECTOR LABORATORY Final Res ult Performing Organization Address [facility] Co de Phone Number [facility] [place] [address] [place] [address] * LIPASE (07/05/2021 9:27 AM CDT) LIPASE 33 7 - 60 U/L [facility] 07/05/2021 9:27 AM CDT 07/05/2021 9:30 AM CDT Narrative [facility] [place] - 07/06/2021 5:29 PM CDT FASTING:NO FASTING: NO Jacquie Fair CORE INSPECTOR LABORATORY Final Res ult [facility] [place] [address] [place] [address] * (ABNORMAL) CBC W/DIFF AUTOMATED (07/05/2021 9:27 AM CDT) WBC 3.5(L) 3.8 - 10.8 Thousand/u L [facility] RBC 4.06 3.80 - 5.10 Million/uL [facility] HGB 9.9(L) 11.7 - 15.5 g/dL [facility] HCT 31.9(L) 35.0 - 45.0 % [facility] MCV 78.6(L) 80.0 - 100.0 fL [facility] MCH 24.4(L) 27.0 - 33.0 pg [facility] MCHC 31.0(L) 32.0 - 36.0 g/dL [facility] RDW 11.6 11.0 - 15.0 % [facility] PLT 288 140 - 400 Thousand/u L [facility] MPV 10.7 7.5 - 12.5 fL [facility] ABS. NEUTROPHILS 1,817 1,500 - 7,800 cells/uL [facility] ABS. LYMPHOCYTES 1,306 850 - 3,900 cells/uL [facility] ABS. MONOCYTES 238 200 - 950 cells/uL [facility] ABS. EOSINOPHILS 109 15 - 500 cells/uL [facility] ABS. BASOPHILS 32 0 - 200 cells/uL [facility] SEG NEUTROPHILS 51.9 % [facility] LYMPHOCYTES 37.3 % [facility] MONOCYTES 6.8 % [facility] EOSINOPHILS 3.1 % [facility] BASOPHILS 0.9 % [facility] 07/05/2021 9:27 AM CDT 07/05/2021 9:30 AM CDT Narrative [facility] [place] - 07/06/2021 5:29 PM CDT FASTING:NO FASTING: NO us Jacquie Fair CORE INSPECTOR LABORATORY Final Res ult Performing Organization Address [facility] Co de Phone Number [facility] [place] [facility] [address] [place] [phone] * H. PYLORI UREA BREATH TEST (07/05/2021 9:27 AM CDT) H. PYLORI UREA BREATH TEST NOT DETECTED NOT DETECTED [facility] Comment: Antimicrobials, proton pump inhibitors, and bismuth preparations are known to suppress H. pylori, and ingestion of these prior to H. pylori diagnostic testing may lead to false negative results. If clinically indicated, the test may be repeated on a new specimen obtained two weeks after discontinuing treatment. However, a positive result is still clinically valid. 07/05/2021 9:27 AM CDT 07/05/2021 9:30 AM CDT Narrative [facility] [place] - 07/06/2021 5:29 PM CDT FASTING:NO FASTING: NO Jacquie Fair CORE INSPECTOR LABORATORY Final Res ult Performing Organization Address [facility] Co de Phone Number [facility] [place] [facility] [address] [place] [phone] documented in this encounter Visit Diagnoses Diagnosis Antral gastritis Other specified gastritis without mention of hemorrhage Anemia, unspecified type Screening for lipoid disorders Elevated lipase Other nonspecific abnormal serum enzyme levels Hx of Mario thyroiditis Personal history of other endocrine, metabolic, and immunity disorders Need for hepatitis C screening test Special screening examination for other specified viral diseases Hypomagnesemia Disorders of magnesium metabolism Bilateral hearing loss, unspecified hearing loss type documented in this encounter Additional Health Concerns Assessment Noted Time PHQ-9 Depression Total Score: 0 02/29/20 21 9:14 AM MEMBER SERVICES REPRESENTATIVE documented as of this encounter Care Teams Pole Maker Relationship Specialty Start Date End Date Jacquie Fair NP [address] [place] [address] PCP - General NURSE PRACTITIONER 06/20/21 documented as of this encounter
--- OUTSIDE RECORDS SUMMARY | 2024-02-27 09:35 | XMS_ITS | Encounter Summary ---
Author Organization [facility] Address [address] [place] [address]. [place] [address] [place] [address] Care Team Providers Care Halal Butcher Name Role Phone John Pinedo MD Primary Care Provider [phone] Encounter Details Date Type Department Care Team (Latest Contact Info) Description 02/28/2021 Travel Social History Tobacco Use Types Packs/Day [...] on file Legal Sex Female 9:41 PM MARKETING ASSISTANT Gender Identity Female 04/24/2021 2:22 PM MARKETING ASSISTANT Sexual Orientation Choose not to disclose 2021 2:22 PM MARKETING ASSISTANT COVID-19 Exposure Response Date Recorded In the last month, have you been in contact with someone who was confirmed or suspected to have Coronavirus / COVID-19? No / Unsure 02/28/2021 8:52 AM MARKETING ASSISTANT documented as of this encounter Plan of Treatment Not on file documented as of this encounter Visit Diagnoses Not on filedocumented in this encounter Additional Health Concerns Assessment Noted Time PHQ-9 Depression Total Score: 0 02/29/20 9:14 AM MARKETING ASSISTANT documented as of this encounter Care Teams Halal Butcher Relationship Specialty Start Date End Date John Pinedo MD PCP - General INTERNAL MEDICINE 02/28/21 05/28/21 documented as of this encounter
--- OUTSIDE RECORDS SUMMARY | 2024-02-27 09:41 | XMS_ITS | Encounter Summary ---
Author Organization [facility] Address [address] [place] [address] Phone Care Team Providers Care Nuclear Equipment Design Engineer Name Role Phone Jacquie Fair APRN, CNP Primary Care Provid er Reason for Visit * Reason Comments Follow-up Encounter Details Date Type Department Care Team (Late st Contact Info) Description 01/14/2024 2:30 PM BANK WORKER Office Visit [facility] [address] [place] [address] Isabel Hernandez, NUCLEAR EQUIPMENT DESIGN ENGINEER, CITY ENGINEER [address] [place] [id number] Iron deficiency anemia, unspecified iron deficiency anemia type (Primary Dx) Social History Tobacco Use Types Packs/Day Years Used Date Smoking Tobacco: Every Day Cigarettes Smokeless Tobacco: Never Tobacco Cessation:Ready to Q uit: No; Counseling Given: Yes Alcohol Use Standard Drinks/Week Comments Never 0 (1 standard drink = 0.6 oz pur e alcohol) PHQ-2 Answer Date Recorded Total Score - Questions 1-9 0 0 11/2021 Comments Unknown Sex and Gender Information Value Date Recorded Sex Assigned at Not on file Legal Sex Female 2:04 PM CDT Gender Identity Not on file Sexual Orientation Not on file documented as of this encounter Last Filed Vital Signs Vital Sign Reading Time Taken Comments Blood Pressure 100/70 01/14/2024 2:48 PM BANK WORKER Pulse 107 01/14/2024 2:48 PM BANK WORKER Temperature 36.9 ??C (98.4 ??F) 01/14/2024 2:48 PM CS T Respiratory Rate 18 01/14/2024 2:48 PM BANK WORKER Oxygen Saturation 99% 01/14/2024 2:48 PM BANK WORKER Inhaled Oxygen Concentration - - Weight 42.7 kg (94 lb 1.6 oz) 01/14/2024 2:48 PM BANK WORKER Height 157.5 cm (5' 2 ) 01/14/2024 2:48 PM BANK WORKER Body Mass Index 17.21 01/14/2024 2:48 PM BANK WORKER documented in this encounter Functional Status * Question Answer Date of Assessment Author Little interest or pleasure in doing things Not at all 01/14/2024 2:43 PM BANK WORKER Seble Zimmer CMA Feeling down, depressed, or hopeless Not at all 01/14/2024 2:43 PM BANK WORKER Seble Zimmer CMA * Over the past 2 weeks, how often have you been bothered by any of the following problems? Question Answer Date of Assessment Author Patient Health Questionnaire -2 Score 0 01/14/2024 2:43 PM BANK WORKER Seble Zimmer CMA documented as of this encounter Progress Notes * Isabel Hernandez APRN, CNP - 01/14/2024 2:30 PM CST Images from the original note were not included. Patient: Shagufta Lamar Age: 38 y.o. : 1985 Encounter Dept: [facility] Encounter Date: 01/14/2024 Care Team: Current Providers PCP: Jacquie Fair APRN, CNP Encounter Provider: Isabel Hernandez APRN, NISHI Referring Provider: not found Nurse Practitioner: Isabel Hernandez, BRYANNA, NISHI PATIENT IDENTIFICATION: This is a very pleasant 38-year-old female. HISTORY OF PRESENT ILLNESS: Shagufta returns today for followup for iron deficiency anemia. She is doing well since her last visit. She has no complaints overall. She is no longer having any menorrhagia after her previous uterine ablation of July 2022. No major weakness, fatigue or shortness of breath. She is having some syncopal episodes, and she is following with Cardiology and Neurology regarding this. DIAGNOSIS: 1. Iron deficiency. 2. Dysfunctional uterine bleeding. 3. Severe antral gastritis on CT imaging, (EGD and colonoscopy recommended by GI, patient declined). PAST TREATMENT: 1. Colonoscopy in 2008. 2. Patient had dilatation and curettage 12/28/20. 3. Uterine ablation completed July 2022. 4. Tranexamic acid per SCIENCE LIAISON. 5. IV iron. CURRENT TREATMENT: 1. Surveillance. We will retreat with IV iron if she becomes iron deficient. TREATMENT GUIDELINES: Consistent with NCCN guidelines. PROGNOSIS: Not applicable. EXPECTED RESPONSE TO TREATMENT: Not applicable. EXPECTED QUALITY OF LIFE DURING TREATMENT: Fair. ECOG: Not applicable. PAIN: Not applicable. PLAN FOR PAIN: Not applicable. CODE STATUS: Full code. END OF LIFE: ASSESSMENT: 1. Iron deficiency. 2. Dysfunctional uterine bleeding. 3. Severe antral gastritis on CT imaging, (EGD and colonoscopy recommended by GI, patient declined). PLAN: 1. Labs today including CBC and iron studies. So far, her CBC is completely normal. She continues off oral iron. She has not needed IV iron in two years. 2. Our plan is to repeats labs today and in six months. 3. Call with any questions, problems, or concerns. Dr. Akhtar was present in the office. TIME SPENT: REVIEW OF SYSTEMS: See HPI; otherwise, 12-point review of systems is negative. PHYSICAL EXAM: GENERAL: Patient is awake, alert and oriented x3. HEENT: Normocephalic, atraumatic, PERRLA, EOMI. Sclerae nonicteric, conjunctivae normal. Nasopharynx negative. Tongue normal, uvula midline, no thrush, no mucosal lesions present. NECK: Supple. No cervical, supraclavicular, or axillary lymphadenopathy. Thyroid not palpable. LUNGS: Clear to auscultation and percussion in all lung emery, no focal wheezes, rales, or rhonchi. HEART: Regular rhythm and rate. Normal S1, S2, no S3, S4, no murmur, or rub. ABDOMEN: No hepatosplenomegaly, masses, ascites, areas of tenderness, bruits, or hernias. EXTREMITIES: No clubbing, cyanosis, or edema. SKIN: Diffuse erythematous rash on her arms, legs, chest, and stomach. NEURO: Nonfocal. MUSCULOSKELETAL: No joint tenderness or effusion. No spine tenderness. LABORATORY/PATHOLOGY/IMAGING NOTES: All lab results shown below reviewed. Josh Akhtar DO, EDILIA Hernandez, BROOK/merly Vitals: Vitals: 01/14/24 1448 BP: 100/70 BP Location: Left Arm BP Position: Sitting BP Cuff Size: Child Pulse: 107 Resp: 18 Temp: 98.4 ??F (36.9 ??C) TempSrc: Temporal SpO2: 99% Weight: (!) 94 lb 1.6 oz (42.7 kg) Height: 5' 2 (1.575 m) Body surface area is 1.37 meters squared. Body mass index is 17.21 kg/m??. Pain Score: 0 - No pain Allergies: Allergies Allergen Reactions Cephalosporins Diarrhea and Vomiting CDIF Codeine Unknown Methylprednisolone Diarrhea and Vomiting Vomiting, diarrhea Vomiting, diarrhea Wound Dressing Adhesive Rash Adhesive on heart monitors Latex Rash PMH/SgH/FH/SH: Past medical, surgical, family and social histories were reviewed at this visit. Past Medical History Positives Diagnosis Date ADHD Fibromyalgia Mario's thyroiditis Past Surgical History: Procedure Laterality Date SECTION COLON SURGERY DILATION AND CURETTAGE HC TUBING FLEXIBLE S LEEP DISPOSABLE 3/8IN X 2FT REMOVAL OF FALLOPIAN TUBE TONSILLECTOMY No family history on file. Family Status Relation Name Status Mother Alive Father Alive Sister Alive Sister Alive Brother Alive Brother Alive Brother Alive Brother Alive Brother Alive Brother No partnership data on file Social History Socioeconomic History Marital status: Tobacco Use Smoking status: Every Day Current packs/day: 0.25 Types: Cigarettes Smokeless tobacco: Never Vaping Use Vaping status: Never Used Substance and Sexual Activity Alcohol use: Never Drug use: Never Oncology History: Oncology History No history exists. Cancer Staging: Cancer Staging No matching staging information was found for the patient. Cumulative dose Purpose/Goal Comments Lifetime Dose Tracking No doses have been documented on this patient for the following tracked chemicals: Doxorubicin, Epirubicin, Idarubicin, Daunorubicin, Mitoxantrone, Bleomycin, Ifosfamide, Methotrexate, Cyclophosphamide, Cisplatin, Carboplatin Current Medications: Outpatient Encounter Medications as of 01/14/2024 Medication Sig Dispense Refill albuterol 108 (90 Base) MCG/ACT Aerosol Solution INHALE 2 PUFFS BY MOUTH EVERY 6 HOURS NEEDED FOR WHEEZING OR SHORTNESS OF BREATH Cyanocobalamin (B-12 PO) Take by mouth. fludrocortisone (FLORINEF) 0.1 MG Tablet Take 0.1 mg by mouth. midodrine (PROAMATINE) 5 MG Tablet SUMAtriptan (IMITREX) 50 MG Tablet Take 50 mg by mouth once as needed. Use as directed. May repeat dose in 2 hours if headache recurs. No facility-administered encounter medications on file as of 01/14/2024. Labs: Lab on 01/14/2024 Component Date Value Ref Range Status WBC 01/14/2024 5.6 4.0 - 10.0 10*3/uL Final HGB 01/14/2024 13.6 11.2 - 15.7 g/dL Final HCT 01/14/2024 40.2 34.1 - 44.9 % Final PLT 01/14/2024 268 163 - 369 10*3/uL Final MPV 01/14/2024 9.5 9.4 - 12.4 fL Final RBC 01/14/2024 4.57 3.93 - 5.22 10*6/uL Final MCV 01/14/2024 88 79 - 95 fL Final MCH 01/14/2024 29.8 25.6 - 32.2 pg Final MCHC 01/14/2024 33.8 32.2 - 36.5 g/dL Final RDW 01/14/2024 12.0 11.6 - 14.4 % Final Neutrophils % 01/14/2024 52.0 36.0 - 66.0 % Final Lymphocytes % 01/14/2024 39.2 19.0 - 40.0 % Final Monocytes % 01/14/2024 5.7 4.1 - 12.1 % Final Eosinophils % 01/14/2024 1.8 0.0 - 3.5 % Final Basophils % 01/14/2024 1.1 (H) 0.0 - 1.0 % Final Absolute Neutrophils 01/14/2024 2.9 1.4 - 6.6 10*3/uL Final Absolute Lymphocytes 01/14/2024 2.2 0.8 - 4.0 10*3/uL Final Absolute Monocytes 01/14/2024 0.3 0.2 - 1.2 10*3/uL Final Absolute Eosinophils 01/14/2024 0.1 0.0 - 0.4 10*3/uL Final Absolute Basophils 01/14/2024 0.1 0.0 - 0.1 10*3/uL Final Cosigned by Josh Akhtar DO at 01/16/2024 12:37 PM BANK WORKER WORKER WORKER WORKER documented in this encounter Plan of Treatment Scheduled Orders Name Type Priority Associated Diagnoses Orde r Schedule COMPLETE BLOOD COUNT (CBC) WITH DIFF Lab Routine Iron deficiency anemia, unspecified iron deficiency anemia type Expected: 07/14/2024 (Approximate), Expires: 08/14/2024 FERRITIN Lab Routine Iron deficiency anemia, unspecified iron deficiency anemia type Expected: 07/14/2024 (Approximate), Expires: 08/14/2024 IRON W/ IRON BINDING [place]ACITY [place] Lab Routine Iron deficiency anemia, unspecified iron deficiency anemia type Expected: 07/14/2024 (Approximate), Expires: 08/14/2024 documented as of this encounter Visit Diagnoses Diagnosis Iron deficiency anemia, unspecified iron deficiency anemia type- Primary documented in this encounter Care Teams Nuclear Equipment Design Engineer Relationship Specialty Start Date End Date Jacquie Fair APRN, CITY ENGINEER [address] [facility], [address] [place] [address] PCP - General Advanced Practice Nurse 07/11/21 documented as of this encounter
--- OUTSIDE RECORDS SUMMARY | 2024-02-27 09:41 | XMS_ITS | Encounter Summary ---
Author Organization [facility] Address [address] [place] [address] Phone Care Team Providers Care Paper Goods Machine Operator Name Role Phone Jcaquie Fair APRN, INSURANCE CLAIMS ADJUSTER Primary Care Provid er Encounter Details Date Type Department Care Team (Late st Contact Info) Description 02/28/2022 9:00 AM EMPLOYMENT AND CLAIMS AIDE Lab [facility] [address] [place] [address] Nurse, Cc Adrien Iron deficiency anemia, unspecified iron deficiency anemia type Social History Tobacco Use Types Packs/Day Years Used Date Smoking Tobacco: Every Day Cigarettes Smokeless Tobacco: Never Alcohol Use Standard Drinks/Week Comments Never 0 (1 standard drink = 0.6 oz pur e alcohol) PHQ-2 Answer Date Recorded Total Score - Questions 1-9 0 08/0 11/2021 Comments Unknown Sex and Gender Information Value Date Recorded Sex Assigned at Not on file Legal Sex Female 2:04 PM CDT Gender Identity Not on file Sexual Orientation Not on file COVID-19 Exposure Response Date Recorded In the last 10 days, have yo u been in contact with someone who was confirmed or suspected to have Coronavirus/COVID-19? No / Unsure 02/28/2022 8:32 AM EMPLOYMENT AND CLAIMS AIDE documented as of this encounter Functional Status * Question Answer Date of Assessment Author Little interest or pleasure in doing things Not at all 02/28/2022 8:37 AM EMPLOYMENT AND CLAIMS AIDE Josefa Conde, LAP HAND TOOL Feeling down, depressed, or hopeless Not at all 02/28/2022 8:37 AM EMPLOYMENT AND CLAIMS AIDE Josefa Conde LPN * Over the past 2 weeks, how often have you been bothered by any of the following problems? Question Answer Date of Assessment Author Patient Health Questionnaire -2 Score 0 02/28/2022 8:37 AM EMPLOYMENT AND CLAIMS AIDE Josefa Conde LPN documented as of this encounter Progress Notes * Maria Eugenia Fermin RN - 02/28/2022 9:00 AM CST Blood work drawn from R AC. Gauze/tape placed over site. D/c clinic ambulatory. OYMENT AND CLAIMS AIDE documented in this encounter Plan of Treatment Not on file documented as of this encounter Visit Diagnoses Diagnosis Iron deficiency anemia, unspecified iron deficiency anemia type documented in this encounter Care Teams Paper Goods Machine Operator Relationship Specialty Start Date End Date Jacquie Fair APRN, INSURANCE CLAIMS ADJUSTER [address] [facility], [address] [place] [address] PCP - General Advanced Practice Nurse 07/11/21 documented as of this encounter
--- OUTSIDE RECORDS SUMMARY | 2024-02-27 09:41 | XMS_ITS | Encounter Summary ---
Author Organization [facility] Address [address] [place] [address] Phone Care Team Providers Care Double Ending Machine Operator Name Role Phone Jacquie Fair APRN, CNP Primary Care Provid er Reason for Visit * Reason Comments Follow-up Encounter Details Date Type Department Care Team (Late st Contact Info) Description 09/04/2022 8:00 AM CDT Office Visit [facility] [address] [place] [address] Josh Akhtar, DO [address] [place] [address] Iron deficiency anemia, unspecified iron deficiency anemia type (Primary Dx) Social History Tobacco Use Types Packs/Day Years Used Date Smoking Tobacco: Every Day Cigarettes Smokeless Tobacco: Never Tobacco Cessation:Ready to Q uit: Not Asked; Counseling Given: Not Answered Alcohol Use Standard Drinks/Week Comments Never 0 [...] suspected to have Coronavirus/COVID-19? No / Unsure 09/04/2022 7:47 AM CDT documented as of this encounter Last Filed Vital Signs Vital Sign Reading Time Taken Comments Blood Pressure 102/60 09/04/2022 8:03 AM CDT Pulse 101 09/04/2022 8:03 AM CDT Temperature 36.8 ??C (98.2 ??F) 09/04/2022 8:03 AM CD T Respiratory Rate 18 09/04/2022 8:03 AM CDT Oxygen Saturation 99% 09/04/2022 8:03 AM CDT Inhaled Oxygen Concentration - - Weight 42.6 kg (93 lb 14.4 oz) 09/04/2022 8:03 A M CDT Height 157.5 cm (5' 2 ) 09/04/2022 8:03 AM CDT Body Mass Index 17.17 09/04/2022 8:03 AM CDT documented in this encounter Functional Status * Question Answer Date of Assessment Author Little interest or pleasure in doing things Not at all 09/04/2022 8:00 AM CDT Seble Zimmer CMA Feeling down, depressed, or hopeless Not at all 09/04/2022 8:00 AM CDT Seble Zimmer CMA * Over the past 2 weeks, how often have you been bothered by any of the following problems? Question Answer Date of Assessment Author Patient Health Questionnaire -2 Score 0 09/04/2022 8:00 AM CDT Seble Zimmer CMA documented as of this encounter Progress Notes * Josh Akhtar DO - 09/04/2022 8:00 AM CDT Images from the original note were not included. Patient: Shagufta Lamar Age: 36 y.o. : 1985 Encounter Dept: [facility] Encounter Date: 09/04/2022 Care Team: Current Providers PCP: Jacquie Fair APRN, ADDICTION SOCIAL WORKER Encounter Provider: Josh Akhtar DO Referring Provider: not found Consulting Physician: Josh Akhtar DO PATIENT IDENTIFICATION: This is a very pleasant 36-year-old female. HISTORY OF PRESENT ILLNESS: Shagufta is doing well. No complaints. Asymptomatic. Here for followup. Shehas been recommended previously to have EGD and colonoscopy. She was seen by GI. She declined. We have replaced her iron. She has since had an endometrial ablation. DIAGNOSIS: 1. Iron deficiency. 2. Dysfunctional uterine bleeding. 3. Severe antral gastritis on CT imaging, (EGD and colonoscopy recommended by GI, patient declined). PAST TREATMENT: 1. Colonoscopy in 2008. 2. Patient had dilatation and curettage 12/28/20. 3. Uterine ablation completed July 2022. 4. Tranexamic acid per RAIL TRACTOR OPERATOR. 5. IV iron. CURRENT TREATMENT: 1. Surveillance. We will retreat with IV iron if she becomes iron deficient. TREATMENT GUIDELINES: Consistent with NCCN guidelines. PROGNOSIS: Not applicable. EXPECTED RESPONSE TO TREATMENT: Not applicable. EXPECTED QUALITY OF LIFE DURING TREATMENT: Fair. ECOG: Not applicable. PAIN: Not applicable. PLAN FOR PAIN: Not applicable. CODE STATUS: Full code END OF LIFE: ASSESSMENT: 1. Iron deficiency. 2. Dysfunctional uterine bleeding. 3. Severe antral gastritis on CT imaging, (EGD and colonoscopy recommended by GI, patient declined). PLAN: 1. Labs look unremarkable today. Iron saturation is minimally low at 19%. 2. We will follow up in six months. 3. If the patient becomes iron deficient, we will replace with IV iron and consider GI workup evaluation at that time. 3. The patient is to contact me in the interim. TIME SPENT: REVIEW OF SYSTEMS: See HPI; [...] All lab results shown below reviewed. Josh Akhtar, DO, FACOI/mgo Vitals: Vitals: 09/04/22 0803 BP: 102/60 BP Location: Left Arm BP Position: Sitting BP Cuff Size: Regular Pulse: 101 Resp: 18 Temp: 98.2 ??F (36.8 ??C) TempSrc: Temporal SpO2: 99% Weight: (!) 93 lb 14.4 oz (42.6 kg) Height: 5' 2 (1.575 m) Body surface area is 1.37 meters squared. Body mass index is 17.17 kg/m??. Pain Score: 0 - No pain Allergies: Allergies Allergen Reactions ??? Cephalosporins Diarrhea and Vomiting CDIF ??? Codeine Unknown ??? Methylprednisolone Diarrhea and Vomiting Vomiting, diarrhea Vomiting, diarrhea ??? Wound Dressing Adhesive Rash Adhesive on heart monitors ??? Latex Rash PMH/SgH/FH/SH: Past medical, surgical, family and social histories were reviewed at this visit. Past Medical History Positives Diagnosis Date ??? ADHD ??? Fibromyalgia ??? Mario's thyroiditis Past Surgical History: Procedure Laterality Date ??? SECTION ??? COLON SURGERY ??? DILATION AND CURETTAGE ??? HC TUBING FLEXIBLE S LEEP DISPOSABLE 8IN X 2FT ??? REMOVAL OF FALLOPIAN TUBE ??? TONSILLECTOMY No family history on file. Family Status Relation Name Status ??? Mother Alive ??? Father Alive ??? Sister Alive ??? Brother Alive ??? Sister Alive ??? Brother Alive ??? Brother Alive ??? Brother Alive ??? Brother Alive ??? Brother Alive Social History Socioeconomic History ??? Marital status: Tobacco Use ??? Smoking status: Every Day Packs/day: 0.25 Types: Cigarettes ??? Smokeless tobacco: Never Vaping Use ??? Vaping Use: Never used Substance and Sexual Activity ??? Alcohol use: Never ??? Drug use: Never Oncology History: Oncology History No history exists. Cancer Staging: Cancer Staging No matching staging information was found for the patient. Cumulative dose Purpose/Goal Comments Lifetime Dose Tracking No doses have been documented on this patient for the following tracked chemicals: Doxorubicin, Epirubicin, Idarubicin, Daunorubicin, Mitoxantrone, Bleomycin, Ifosfamide, Methotrexate, Cyclophosphamide, Cisplatin, Carboplatin Current Medications: Outpatient Encounter Medications as of 09/04/2022 Medication Sig Dispense Refill ??? albuterol 108 (90 Base) MCG/ACT Aerosol Solution INHALE 2 PUFFS BY MOUTH EVERY 6 HOURS NEEDED FOR WHEEZING OR SHORTNESS OF BREATH ??? amitriptyline (ELAVIL) 25 MG Tablet Take 50 mg by mouth. ??? Cyanocobalamin (B-12 PO) Take by mouth. ??? tranexamic Acid (LYSTEDA) 650 MG Tablet (Patient not taking: Reported on 09/04/2022) ??? zolpidem (AMBIEN) 5 MG Tablet Take 5 mg by mouth. No facility-administered encounter medications on file as of 09/04/2022. Labs: Lab on 08/30/2022 Component Date Value Ref Range Status ? ? Folate 08/30/2022 >20.00 >=5.90 ng/mL Final ??? Ferritin 08/30/2022 31 11 - 307 ng/mL Final ??? IRON 08/30/2022 60 50 - 212 ug/dL Final ??? UIBC 08/30/2022 250 155 - 355 ug/dL Final ??? TIBC 08/30/2022 310 261 - 478 ug/dl Final ??? % Saturation 08/30/2022 19 (L) 20 - 50 % Final ??? LDH 08/30/2022 103 (L) 140 - 271 U/L Final ??? Glucose 08/30/2022 85 70 - 105 mg/dL Final ??? Blood Urea Nitrogen 08/30/2022 12 7 - 25 mg/dL Final ??? Creatinine 08/30/2022 0.8 0.6 - 1.2 mg/dL Final ??? Sodium 08/30/2022 142 136 - 145 mEq/L Final ??? Potassium 08/30/2022 3.9 3.5 - 5.1 mEq/L Final ??? Chloride 08/30/2022 107 98 - 107 mEq/L Final ??? Bicarbonate 08/30/2022 26 21 - 31 mEq/L Final ??? Total Bilirubin 08/30/2022 0.4 0.3 - 1.0 mg/dL Final ??? Alk. Phosphatase 08/30/2022 32 (L) 34 - 104 U/L Final ??? Aspartate Aminotransferase 08/30/2022 16 13 - 39 U/L Final ??? Alanine Aminotransferase 08/30/2022 11 7 - 52 U/L Final ??? Total Protein 08/30/2022 6.7 6.4 - 8.9 g/dL Final ??? Albumin 08/30/2022 4.6 3.5 - 5.7 g/dL Final ??? Calcium 08/30/2022 9.5 8.6 - 10.3 mg/dL Final ??? Anion Gap 08/30/2022 12.9 7.0 - 15.0 mEq/L Final ??? Globulin 08/30/2022 2.1 2.0 - 3.5 g/dL Final ? ? EGFR 08/30/2022 97 >60 ml/min/1.73m2 Final Comment: This eGFR is calculated using 2020 CKD-EPI Creatinine equation without race modifier based on the NKF-ASN task force recommendations ??? WBC 08/30/2022 3.5 (L) 4.0 - 10.0 10*3/uL Final ??? HGB 08/30/2022 13.0 11.2 - 15.7 g/dL Final ??? HCT 08/30/2022 38.5 34.1 - 44.9 % Final ??? PLT 08/30/2022 247 163 - 369 10*3/uL Final ??? MPV 08/30/2022 9.7 9.4 - 12.4 fL Final ??? RBC 08/30/2022 4.22 3.93 - 5.22 10*6/uL Final ??? MCV 08/30/2022 91 79 - 95 fL Final ??? MCH 08/30/2022 30.8 25.6 - 32.2 pg Final ??? MCHC 08/30/2022 33.8 32.2 - 36.5 g/dL Final ??? RDW 08/30/2022 12.2 11.6 - 14.4 % Final ??? Absolute Neutrophil Count 08/30/2022 2,006 cells/uL Final ??? Absolute Seg Count 08/30/2022 2,006 1,440 - 6,600 cells/uL Final ??? Absolute Lymph Count 08/30/2022 1,162 760 - 4,000 cells/uL Final ??? Absolute [place] Count 08/30/2022 282 160 - 1,200 cells/uL Final ??? Absolute Eos Count 08/30/2022 70 0 - 300 cells/uL Final ??? Segmented Neutrophils 08/30/2022 57 36 - 66 % Final ??? Lymphocytes 08/30/2022 33 19 - 40 % Final ??? Monocytes 08/30/2022 8 4 - 12 % Final ??? Eosinophils 08/30/2022 2 0 - 3 % Final ??? WBC Estimate 08/30/2022 Low Final ??? Platelet Estimate 08/30/2022 Normal Final ??? RBC Morphology 08/30/2022 Normal Final documented in this encounter Plan of Treatment Scheduled Orders Name Type Priority Associated Diagnoses Orde r Schedule COMPLETE BLOOD COUNT (CBC) WITH DIFF Lab Routine Iron deficiency anemia, unspecified iron deficiency anemia type Expected: 03/10/2023, Expires: 04/19/2023 FERRITIN Lab Routine Iron deficiency anemia, unspecified iron deficiency anemia type Expected: 03/10/2023, Expires: 04/19/2023 IRON W/ IRON BINDING [place] Lab Routine Iron deficiency anemia, unspecified iron deficiency anemia type Expected: 03/10/2023, Expires: 04/19/2023 VITAMIN B12 Lab Routine Iron deficiency anemia, unspecified iron deficiency anemia type Expected: 03/10/2023, Expires: 04/19/2023 FOLIC ACID (FOLATE) Lab Routine Iron deficiency anemia, unspecified iron deficiency anemia type Expected: 03/10/2023, Expires: 04/19/2023 documented as of this encounter Visit Diagnoses Diagnosis Iron deficiency anemia, unspecified iron deficiency anemia type- Primary documented in this encounter Care Teams Double Ending Machine Operator Relationship Specialty Start Date End Date Jacquie Fair, EDGE INKER HEELS, ADDICTION SOCIAL WORKER [address] [facility], [address] [place] [address] PCP - General Advanced Practice Nurse 07/11/21 documented as of this encounter
--- OUTSIDE RECORDS SUMMARY | 2024-02-27 09:41 | XMS_ITS | Encounter Summary ---
Author Organization [facility] [[email or web address]] Address [address] [place] [address] Phone Care Team Providers Care Machine Stamper Name Role Phone Jacquie Fair APRN, CNP Primary Care Provid er Encounter Details Date Type Department Care Team (Late st Contact Info) Description 01/14/2024 2:25 PM PASSENGER CAR INSPECTOR Lab [facility] [address] [address] Lab, Cc [facility] Iron deficiency anemia, unspecified iron deficiency anemia [...] on file documented as of this encounter Functional Status * Question Answer Date of Assessment Author Little interest or pleasure in doing things Not at all 01/14/2024 2:43 PM PASSENGER CAR INSPECTOR Seble Zimmer CMA Feeling down, depressed, or hopeless Not at all 01/14/2024 2:43 PM PASSENGER CAR INSPECTOR Seble Zimmer CMA * Over the past 2 weeks, how often have you been bothered by any of the following problems? Question Answer Date of Assessment Author Patient Health Questionnaire -2 Score 0 01/14/2024 2:43 PM PASSENGER CAR INSPECTOR Seble Zimmer CMA documented as of this encounter Plan of Treatment Not on file documented as of this encounter Procedures Procedure Name Priority Date/Time Associated Diagnosis Comments IRON W/ IRON BINDING CAPACITY OH Routine 01/14/2024 2:40 PM PASSENGER CAR INSPECTOR Iron deficiency anemia, unspecified iron deficiency anemia type CBC WITH AUTO DIFF OH Routine 01/14/2024 2:40 PM PASSENGER CAR INSPECTOR FERRITIN Routine 01/14/2024 2:40 PM PASSENGER CAR INSPECTOR Iron deficiency anemia, unspecified iron deficiency anemia type CMP (COMPREHENSIVE METABOLIC PANEL) Routine 01/14/2024 2:40 PM PASSENGER CAR INSPECTOR Iron deficiency anemia, unspecified iron deficiency anemia type documented in this encounter Results * (ABNORMAL) CBC WITH AUTO DIFF OH (01/14/2024 2:40 PM PASSENGER CAR INSPECTOR) WBC 5.6 4.0 - 10.0 10*3/uL [facility] HGB 13.6 11.2 - 15.7 g/dL [facility] HCT 40.2 34.1 - 44.9 % [facility] PLT 268 163 - 369 10*3/uL [facility] MPV 9.5 9.4 - 12.4 fL [facility] RBC 4.57 3.93 - 5.22 10*6/uL [facility] MCV 88 79 - 95 fL [facility] MCH 29.8 25.6 - 32.2 pg [facility] MCHC 33.8 32.2 - 36.5 g/dL [facility] RDW 12.0 11.6 - 14.4 % [facility] Neutrophils % 52.0 36.0 - 66.0 % [facility] Lymphocytes % 39.2 19.0 - 40.0 % [facility] Monocytes % 5.7 4.1 - 12.1 % [facility] Eosinophils % 1.8 0.0 - 3.5 % [facility] Basophils % 1.1(H) 0.0 - 1.0 % [facility] Absolute Neutrophils 2.9 1.4 - 6.6 10*3/uL [facility] Absolute Lymphocytes 2.2 0.8 - 4.0 10*3/uL [facility] Absolute Monocytes 0.3 0.2 - 1.2 10*3/uL [facility] Absolute Eosinophils 0.1 0.0 - 0.4 10*3/uL [facility] Absolute Basophils 0.1 0.0 - 0.1 10*3/uL [facility] 01/14/2024 2:40 PM PASSENGER CAR INSPECTOR us Reina Macedo APRN, CNP LAB SEND OUTS Fin al Result [facility] [address] [place] [address], [place] [phone] * FERRITIN (01/14/2024 2:40 PM PASSENGER CAR INSPECTOR) Ferritin 25 11 - 307 ng/mL [facility] Blood 01/14/2024 2:40 PM PASSENGER CAR INSPECTOR Narrative [facility] - 01/15/2024 2:07 PM PASSENGER CAR INSPECTOR Release to patient->Immediate us Reina Macedo APRN, CNP CHEMISTRY ORDERABLE S Final Result [facility] [address] [place] [address], [place] [phone] * IRON W/ IRON BINDING CAPACITY OH (01/14/2024 2:40 PM PASSENGER CAR INSPECTOR) IRON 111 50 - 212 ug/dL [facility] UIBC 194 155 - 355 ug/dL [facility] TIBC 305 261 - 478 ug/dl [facility] % Saturation 36 20 - 50 % [facility] 01/14/2024 2:40 PM PASSENGER CAR INSPECTOR Narrative [facility] - 01/14/2024 3:35 PM PASSENGER CAR INSPECTOR Release to patient->Immediate Reina Macedo APRN, CNP LAB SEND OUTS Fin al Result [facility] [place] [address], * (ABNORMAL) CMP (COMPREHENSIVE METABOLIC PANEL) (01/14/2024 2:40 PM PASSENGER CAR INSPECTOR) Glucose 112(H) 70 - 105 mg/dL [facility] Blood Urea Nitrogen 13 7 - 25 mg/dL [facility] Creatinine 0.9 0.6 - 1.2 mg/dL [facility] Sodium 141 136 - 145 mEq/L [facility] Potassium 3.9 3.5 - 5.1 mEq/L [facility] Chloride 104 98 - 107 mEq/L [facility] Bicarbonate 29 21 - 31 mEq/L [facility] Total Bilirubin 0.4 0.3 - 1.0 mg/dL [facility] Alk. Phosphatase 32(L) 34 - 104 U/L [facility] Aspartate Aminotransferase 16 13 - 39 U/L [facility] Alanine Aminotransferase 13 7 - 52 U/L [facility] Total Protein 6.4 6.4 - 8.9 g/dL [facility] Albumin 4.4 3.5 - 5.7 g/dL [facility] Calcium 9.3 8.6 - 10.3 mg/dL [facility] Anion Gap 11.9 7.0 - 15.0 mEq/L [facility] Globulin 2.0 2.0 - 3.5 g/dL [facility] EGFR 84 >60 ml/min/1. 73m2 [facility] BOILERMAKER [facility] Comment: This eGFR is calculated using 2020 CKD-EPI Creatinine equation without race modifier based on the NKF-ASN task force recommendations Blood 01/14/2024 2:40 PM PASSENGER CAR INSPECTOR Narrative [facility] - 01/14/2024 3:35 PM PASSENGER CAR INSPECTOR Release to patient->Immediate IS THE PATIENT REQUIRED TO BE FASTING FOR 8 HOURS?->No Reina Macedo APRN, CNP CHEMISTRY ORDERABLE S Final Result [facility]ER[facility] [address] [place] [address], documented in this encounter Visit Diagnoses Diagnosis Iron deficiency anemia, unspecified iron deficiency anemia type documented in this encounter Care Teams Machine Stamper Relationship Specialty Start Date End Date Jacquie Fair APRN, LICENSED THERAPIST [address] [facility] [facility], [address] [place] [id number] PCP - General Advanced Practice Nurse 07/11/21 documented as of this encounter
--- OUTSIDE RECORDS SUMMARY | 2024-02-27 09:41 | XMS_ITS | Clinical Summary ---
Author Organization [facility] Address [address] [place] [address] Phone Care Team Providers Care Mutuel Clerk Name Role Phone Jacquie Fair APRN, FINISHING SUPERVISOR Primary Care Provid er Allergies Active Allergy Reactions Criticality Noted Date Comments Cephalosporins Diarrhea,Vomiting High 02/28/2021 CDIF Codeine Unknown High 02/28/2021 Latex Rash Low 12/04/2017 Methylprednisolone Diarrhea,Vomiting Medium 04/13/2022 Vomiting, diarrhea Vomiting, diarrhea Wound Dressing Adhesive Rash Medium 07/09/2022 Adhesive on heart monitors Medications Cyanocobalamin (B-12 PO) Take by mouth. Active albuterol 108 (90 Base) MCG/ACT Aerosol Solution INHALE 2 PUFFS BY MOUTH EVERY 6 HOURS NEEDED FOR WHEEZING OR SHORTNESS OF BREATH 2 Active midodrine (PROAMATINE) 5 MG Tablet 4 Active fludrocortisone (FLORINEF) 0.1 MG Tablet Take 0.1 mg by mouth. 4 11/13/19 25 Active SUMAtriptan (IMITREX) 50 MG Tablet Take 50 mg by mouth once as needed. Use as directed. May repeat dose in 2 hours if headache recurs. Active Active Problems Problem Noted Date Diagnosed Date Anxiety disorder 09/03/2022 Arthralgia 07/18/2022 Vitamin D deficiency 06/13/2022 Menorrhagia with regular cycle 10/17/2021 Iron deficiency anemia 08/02/2021 Bilateral hearing loss 07/05/2021 Seasonal depression 02/28/2021 Overview (09/03/2022): 21 yo female with hx of chest discomfort off and on for the past year = she has felt chest tightness and squeezing feeling of her heart up to several times a day. Symptoms have increased. Prior hx of having had an [place] at age [age] years old when she [...] to go back on an OCP. nonsmoker. 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 [facility]ari network 12/05/2017 Mild intermittent asthma without complication Encounters Date Type Department Care Team Description 01/14/2024 2:30 PM FIELD SUPPORT SPECIALIST Office Visit [facility] [address] [address] Isabel Hernandez, SHERIFF'S OFFICER, FINISHING SUPERVISOR Iron deficiency anemia, unspecified iron deficiency anemia type (Primary Dx) 01/14/2024 2:25 PM FIELD SUPPORT SPECIALIST Lab [facility] [address] [address] Lab, Cc [facility] Iron deficiency anemia, unspecified iron deficiency anemia type 01/14/2024 Travel from Last 3 Months Immunizations Immunization Administration Dates Next Due Influenza Vaccine, Quadrivalent, PF 01/21/2023 Influenza Vaccine,unspecifie d Formulation 01/21/2023,02/01/2021,01/25/2020,01/05,12/23/2017 Pneumococcal conjugate PCV20 , polysaccharide UCF486 conjugate, adjuvant, PF 01/21/2023 RHO(D) Immune Globulin- IV Or IM 12/21/2020,09/09 TDAP Vaccine 07/09/2018 Family History Relation Name Status Comments Brother 1 Alive Brother 2 Alive Brother 3 Alive Brother 4 Alive Brother 5 Alive Brother 6 Father Alive Mother Alive Sister 1 Alive Sister 2 Alive Social History Tobacco Use Types Packs/Day Years [...] on file Sexual Orientation Not on file Last Filed Vital Signs Vital Sign Reading Time Taken Comments Blood Pressure 100/70 01/14/2024 2:48 PM FIELD SUPPORT SPECIALIST Pulse 107 01/14/2024 2:48 PM FIELD SUPPORT SPECIALIST Temperature 36.9 ??C (98.4 ??F) 01/14/2024 2:48 PM CS T Respiratory Rate 18 01/14/2024 2:48 PM FIELD SUPPORT SPECIALIST Oxygen Saturation 99% 01/14/2024 2:48 PM FIELD SUPPORT SPECIALIST Inhaled Oxygen Concentration - - Weight 42.7 kg (94 lb 1.6 oz) 01/14/2024 2:48 PM FIELD SUPPORT SPECIALIST Height 157.5 cm (5' 2 ) 01/14/2024 2:48 PM FIELD SUPPORT SPECIALIST Body Mass Index 17.21 01/14/2024 2:48 PM FIELD SUPPORT SPECIALIST Plan of Treatment Health Maintenance Due Date Last Done Comments Pap Smear 2006 Cervical Cancer Screening (CCS) 09/08/2015 HPV/Cotest 09/08/2015 Hepatitis B Immunization (2 of 3 - 19+ 3-dose series) 12/14/2023 11/16/2023 Td Immunization Every 10 Years (Adults With 1 Tdap) 07/09/2028 07/09/2018 Respiratory Syncytial Virus (RSV) Immunization (Adult) (1 - 1-dose 75+ series) 2060 DTaP/Tdap/Td Immunization Discontinued 07/09/2018 Hepatitis C Virus (HCV) Screening Completed 07/31/2022, 02/18/2018 Pneumococcal Immunization Combined Completed 01/21/2023 Influenza Immunization Completed 4, 01/21/2023, 01/21/2023, Additional history exists SARS-COV-2 Immunization Completed 11/16/19 24, 01/21/2023, 05/19/2020, Additional history exists Meningococcal Immunization (ACWY) Aged Out No longer eligible based on patient's age to complete this topic Rotavirus Immunization Aged Out No lo nger eligible based on patient's age to complete this topic Procedures Procedure Name Priority Date/Time Associated Diagnosis Comments CBC WITH AUTO DIFF OH Routine 01/14/2024 2:40 PM FIELD SUPPORT SPECIALIST FERRITIN Routine 01/14/2024 2:40 PM FIELD SUPPORT SPECIALIST Iron deficiency anemia, unspecified iron deficiency anemia type IRON W/ IRON BINDING CAPACITY OH Routine 01/14/2024 2:40 PM FIELD SUPPORT SPECIALIST Iron deficiency anemia, unspecified iron deficiency anemia type CMP (COMPREHENSIVE METABOLIC PANEL) Routine 01/14/2024 2:40 PM FIELD SUPPORT SPECIALIST Iron deficiency anemia, unspecified iron deficiency anemia type from Last 3 Months Results * IRON W/ IRON BINDING CAPACITY OH (01/14/2024 2:40 PM FIELD SUPPORT SPECIALIST) IRON 111 50 - 212 ug/dL [facility] SILVERWARE W[facility] UIBC 194 155 - 355 ug/dL [facility]IL[facility]WARE W[facility] TIBC 305 261 - 478 ug/dl [facility] SILVERWARE WASH[facility] % Saturation 36 20 - 50 % [facility]ILVERWARE W[facility] 01/14/2024 2:40 PM FIELD SUPPORT SPECIALIST Narrative [facility]WARE [facility] - 01/14/2024 3:35 PM FIELD SUPPORT SPECIALIST Release to patient->Immediate us Reina Macedo SHERIFF'S OFFICER, FINISHING SUPERVISOR LAB SEND OUTS Fin al Result [facility]WARE W[facility] [place] [address], * (ABNORMAL) CBC WITH AUTO DIFF OH (01/14/2024 2:40 PM FIELD SUPPORT SPECIALIST) WBC 5.6 4.0 - 10.0 10*3/uL [facility] SILVERWARE WASH[facility] HGB 13.6 11.2 - 15.7 g/dL [facility]ILVERWARE W[facility] HCT 40.2 34.1 - 44.9 % CAN[facility] SILVERWARE WASH[facility] PLT 268 163 - 369 10*3/uL [facility] SILVERWARE WASH[facility] MPV 9.5 9.4 - 12.4 fL [facility] SILVERWARE W[facility] RBC 4.57 3.93 - 5.22 10*6/uL [facility] SILVERWARE WASH[facility] MCV 88 79 - 95 fL [facility] MCH 29.8 25.6 - 32.2 pg [facility]WARE W[facility] MCHC 33.8 32.2 - 36.5 g/dL [facility]WARE W[facility] RDW 12.0 11.6 - 14.4 % [facility] SILVERWARE W[facility] Neutrophils % 52.0 36.0 - 66.0 % [facility]WARE W[facility] Lymphocytes % 39.2 19.0 - 40.0 % [facility] SIL[facility]WARE W[facility] Monocytes % 5.7 4.1 - 12.1 % [facility]WARE W[facility] Eosinophils % 1.8 0.0 - 3.5 % [facility] SILVERWARE W[facility] Basophils % 1.1(H) 0.0 - 1.0 % [facility] SILVERWARE W[facility] Absolute Neutrophils 2.9 1.4 - 6.6 10*3/uL [facility]ER SILVERWARE WASHER [facility] Absolute Lymphocytes 2.2 0.8 - 4.0 10*3/uL [facility]WARE W[facility] Absolute Monocytes 0.3 0.2 - 1.2 10*3/uL [facility] Absolute Eosinophils 0.1 0.0 - 0.4 10*3/uL [facility] Absolute Basophils 0.1 0.0 - 0.1 10*3/uL [facility]WARE W[facility] 01/14/2024 2:40 PM FIELD SUPPORT SPECIALIST us Reina Macedo APRN, FINISHING SUPERVISOR LAB SEND OUTS Fin al Result [facility]IL[facility]WARE W[facility] [place] [address], * FERRITIN (01/14/2024 2:40 PM FIELD SUPPORT SPECIALIST) Ferritin 25 11 - 307 ng/mL [facility] Blood 01/14/2024 2:40 PM FIELD SUPPORT SPECIALIST Narrative [facility]WARE W[facility] - 01/15/2024 2:07 PM FIELD SUPPORT SPECIALIST Release to patient->Immediate Reina Macedo APRN, CNP CHEMISTRY ORDERABLE S Final Result [facility]IL[facility]WARE W[facility] [place] [address], * (ABNORMAL) CMP (COMPREHENSIVE METABOLIC PANEL) (01/14/2024 2:40 PM FIELD SUPPORT SPECIALIST) Glucose 112(H) 70 - 105 mg/dL [facility] Blood Urea Nitrogen 13 7 - 25 mg/dL [facility] Creatinine 0.9 0.6 - 1.2 mg/dL [facility] Sodium 141 136 - 145 mEq/L [facility] Potassium 3.9 3.5 - 5.1 mEq/L [facility] Chloride 104 98 - 107 mEq/L [facility] Bicarbonate 29 21 - 31 mEq/L [facility] Total Bilirubin 0.4 0.3 - 1.0 mg/dL [facility] Alk. Phosphatase 32(L) 34 - 104 U/L [facility] Aspartate Aminotransferase 16 13 - 39 U/L [facility] Alanine Aminotransferase 13 7 - 52 U/L [facility] Total Protein 6.4 6.4 - 8.9 g/dL [facility] Albumin 4.4 3.5 - 5.7 g/dL [facility] Calcium 9.3 8.6 - 10.3 mg/dL [facility] Anion Gap 11.9 7.0 - 15.0 mEq/L [facility] Globulin 2.0 2.0 - 3.5 g/dL [facility] EGFR 84 >60 ml/min/1. 73m2 [facility] SILVERWARE WASHER [facility] Comment: This eGFR is calculated using 2020 CKD-EPI Creatinine equation without race modifier based on the NKF-ASN task force recommendations Blood 01/14/2024 2:4 0 PM FIELD SUPPORT SPECIALIST Narrative [facility]WARE W[facility] - 01/14/2024 3:35 PM FIELD SUPPORT SPECIALIST Release to patient->Immediate IS THE PATIENT REQUIRED TO BE FASTING FOR 8 HOURS?->No Reina Macedo APRN, NISHI CHEMISTRY ORDERABLE S Final Result CAN[facility]IL[facility]WARE W[facility] [place] [address], [place] [phone] from Last 3 Months Insurance Care Teams Mutuel Clerk Relationship Specialty Start Date End Date Jacquie Fair APRN, FINISHING SUPERVISOR [address] [facility], [address] [place] [address] PCP - General Advanced Practice Nurse 07/11/21
--- OUTSIDE RECORDS SUMMARY | 2024-02-27 09:41 | XMS_ITS | Encounter Summary ---
Author Organization [employer] Care Team Providers Care Gore Maker Name Role Phone Jacquie Fair APRN, NISHI Primary Care Provid er Encounter Details Date Type Department Care Team (Latest Contact Info) Description 02/28/2022 Travel Social History Tobacco Use Types Packs/Day [...] Coronavirus/COVID-19? No / Unsure 02/28/2022 8:32 AM STRIPPING CUTTER AND WINDER documented as of this encounter Functional Status * Question Answer Date of Assessment Author Little interest or pleasure in doing things Not at all 02/28/2022 8:37 AM Josefa Lawson LPN Feeling down, depressed, or hopeless Not at all 02/28/2022 8:37 AM Josefa Lawson LPN * Over the past 2 weeks, how often have you been bothered by any of the following problems? Question Answer Date of Assessment Author Patient Health Questionnaire -2 Score 0 02/28/2022 8:37 AM Josefa Lawson LPN documented as of this encounter Plan of Treatment Not on file documented as of this encounter Visit Diagnoses Not on filedocumented in this encounter Care Teams Gore Maker Relationship Specialty Start Date End Date Jacquie Fair, TAILORING TEACHER, BARBERING TEACHER [address] [facility], [address] [place] [address] PCP - General Advanced Practice Nurse 07/11/21 documented as of this encounter
--- OUTSIDE RECORDS SUMMARY | 2024-02-27 09:41 | XMS_ITS | Encounter Summary ---
Author Organization [employer] Care Team Providers Care Manager Forensic Name Role Phone Jacquie Fair APRN, CNP Primary Care Provid er Encounter Details Date Type Department Care Team (Latest Contact Info) Description 01/14/2024 Travel Social History Tobacco Use Types Packs/Day [...] things Not at all 01/14/2024 2:43 PM RN BUILDING Seble Zimmer CMA Feeling down, depressed, or hopeless Not at all 01/14/2024 2:43 PM RN BUILDING Seble Zimmer CMA * Over the past 2 weeks, how often have you been bothered by any of the following problems? Question Answer Date of Assessment Author Patient Health Questionnaire -2 Score 0 01/14/2024 2:43 PM Seble Parson CMA documented as of this encounter Plan of Treatment Not on file documented as of this encounter Visit Diagnoses Not on filedocumented in this encounter Care Teams Manager Forensic Relationship Specialty Start Date End Date Jacquie Fair APRN, CNP [address] [facility], [address] [place] [id number] PCP - General Advanced Practice Nurse 07/11/21 documented as of this encounter
--- OUTSIDE RECORDS SUMMARY | 2024-02-27 09:41 | XMS_ITS | Encounter Summary ---
Author Organization [facility] Address [address] [place] [address] Phone Care Team Providers Care On Air Host Name Role Phone Jacquie Fair APRN, CNP Primary Care Provid er Encounter Details Date Type Department Care Team (Late st Contact Info) Description 06/13/2022 Telephone [facility] [address] [address] Yaquelin Barker PAC Social History Tobacco Use Types Packs/Day Years [...] suspected to have Coronavirus/COVID-19? No / Unsure 06/06/2022 7:59 AM CDT documented as of this encounter Miscellaneous Notes * Telephone Encounter - Yaquelin Barker PAC - 06/13/2022 12:33 PM CDT Patient is scheduled to have breast augmentation. Please send lab results to plastic surgeon, Maira Villa MD documented in this encounter Plan of Treatment Not on file documented as of this encounter Visit Diagnoses Not on filedocumented in this encounter Care Teams On Air Host Relationship Specialty Start Date End Date Jacquie Fair APRN, HAT MAKER [address] [facility], [address] [place] [address] PCP - General Advanced Practice Nurse 07/11/21 documented as of this encounter
--- OUTSIDE RECORDS SUMMARY | 2024-02-27 09:41 | XMS_ITS | Encounter Summary ---
Author Organization [email or web address] Care Team Providers Care Rag Shredder Name Role Phone Jacquie Fair APRN, CNP Primary Care Provid er Encounter Details Date Type Department Care Team (Latest Contact Info) Description 04/17/2022 Travel Social History Tobacco Use Types Packs/Day [...] suspected to have Coronavirus/COVID-19? No / Unsure 04/17/2022 8:05 AM [employer] documented as of this encounter Plan of Treatment Not on file documented as of this encounter Visit Diagnoses Not on filedocumented in this encounter Care Teams Rag Shredder Relationship Specialty Start Date End Date Jacquie Fair APRN, CNP [id number] [facility], [address] [place] [address] PCP - General Advanced Practice Nurse 07/11/21 documented as of this encounter
--- OUTSIDE RECORDS SUMMARY | 2024-02-27 09:41 | XMS_ITS | Encounter Summary ---
Author Organization [facility] Address [address] [place] [address] Phone Care Team Providers Care Clarifying Plant Operator Name Role Phone Jacquie Fair APRN, CNP Primary Care Provid er Reason for Visit * Reason Comments Follow-up Encounter Details Date Type Department Care Team (Late st Contact Info) Description 06/06/2022 8:00 AM CDT Office Visit [facility] [address] [phone] Yaquelin Jhaveri, JANESSA Iron deficiency anemia, unspecified iron deficiency anemia type (Primary Dx); Vitamin D deficiency Social History Tobacco Use Types Packs/Day Years [...] Sign Reading Time Taken Comments Blood Pressure 104/70 06/06/2022 8:12 AM CDT Pulse 110 06/06/2022 8:12 AM CDT Temperature 36.9 ??C (98.4 ??F) 06/06/2022 8:12 AM CD T Respiratory Rate 18 06/06/2022 8:12 AM CDT Oxygen Saturation 99% 06/06/2022 8:12 AM CDT Inhaled Oxygen Concentration - - Weight 47.1 kg (103 lb 12.8 oz) 06/06/2022 8:12 AM CDT Height 157.5 cm (5' 2 ) 06/06/2022 8:12 AM CDT Body Mass Index 18.99 06/06/2022 8:12 AM CDT documented in this encounter Functional Status * Question Answer Date of Assessment Author Little interest or pleasure in doing things Not at all 06/06/2022 8:08 AM CDT Seble Zimmer CMA Feeling down, depressed, or hopeless Not at all 06/06/2022 8:08 AM CDT Seble Zimmer CMA * Over the past 2 weeks, how often have you been bothered by any of the following problems? Question Answer Date of Assessment Author Patient Health Questionnaire -2 Score 0 06/06/2022 8:08 AM CDT Seble Zimmer CMA documented as of this encounter Progress Notes * Yaquelin Jhaveri PAC - 06/06/2022 8:00 AM CDT Images from the original note were not included. Patient: Shagufta Lamar Age: 36 y.o. : 1985 Encounter Dept: [facility] Encounter Date: 06/06/2022 Care Team: Current Providers PCP: Jacquie Fair APRN, CNP Encounter Provider: Yaquelin Jhaveri PAC Referring Provider: not found Physician Cogeneration Technician: Yaquelin Jhaveri PAC PRIMARY PHYSICIAN: Jacquie Fair APRN, CNP PATIENT IDENTIFICATION: This is a very pleasant 36-year-old female. HISTORY OF PRESENT ILLNESS: The patient presents to the office today for a followup visit. Unfortunately, the patient developed significant diffuse rash following laser hair removal. She underwent several rounds of oral and topical steroids. Rash not improving. PCP placed referral to Dermatology. She is scheduled to have breast augmentation next month. Denies fevers, chills, night sweats, abdominal pain or discomfort. No pain or swelling of the lower extremities. No constipation or diarrhea. DIAGNOSIS: 1. Iron deficiency. 2. Dysfunctional uterine bleeding. 3. Severe antral gastritis on CT imaging. PAST TREATMENT: 1. Colonoscopy in 2008. 2. Patient had dilatation and curettage 12/28/20. CURRENT TREATMENT: 1. Tranexamic acid per [facility]. 2. Uterine biopsy and ablation per [facility] in March. 3. IV iron supplementation (taking oral iron pills and IV iron) TREATMENT GUIDELINES: Consistent with NCCN guidelines. PROGNOSIS: Not applicable. EXPECTED RESPONSE TO TREATMENT: Not applicable. EXPECTED QUALITY OF LIFE DURING TREATMENT: Fair. ECOG: Not applicable. PAIN: Not applicable. PLAN FOR PAIN: Not applicable. CODE STATUS: Full code END OF LIFE: ASSESSMENT: 1. Iron deficiency. 2. Dysfunctional uterine bleeding. 3. Severe antral gastritis on CT imaging. PLAN: 1. Repeat labs today 2. Give IV iron if indicated. 3. Again recommended referral to GI given history of gastritis on imaging and now with diffuse rash 4. RTC 3 months TIME SPENT: REVIEW OF SYSTEMS: See HPI; [...] NOTES: All lab results shown below reviewed. SUZE Avilez/elise Vitals: Vitals: 06/06/22 0812 BP: 104/70 BP Location: Left Arm BP Position: Sitting BP Cuff Size: Regular Pulse: 110 Resp: 18 Temp: 98.4 ??F (36.9 ??C) TempSrc: Temporal SpO2: 99% Weight: 103 lb 12.8 oz (47.1 kg) Height: 5' 2 (1.575 m) Body surface area is 1.44 meters squared. Body mass index is 18.99 kg/m??. Pain Score: 0 - No pain Allergies: Allergies Allergen Reactions Cephalosporins Diarrhea and Vomiting CDIF Codeine Unknown Latex Rash Penicillins Rash PMH/SgH/FH/SH: Past medical, surgical, family and [...] Status Mother Alive Father Alive Sister Alive Brother Alive Sister Alive Brother Alive Brother Alive Brother Alive Brother Alive Brother Alive Social History Socioeconomic History Marital status: Tobacco Use Smoking status: Every Day Packs/day: 0.25 Types: Cigarettes Smokeless tobacco: Never Vaping Use Vaping Use: Never used Substance and Sexual Activity Alcohol use: Never [...] Current Medications: Outpatient Encounter Medications as of 06/06/2022 Medication Sig Dispense Refill albuterol 108 (90 Base) MCG/ACT Aerosol Solution INHALE 2 PUFFS BY MOUTH EVERY 6 HOURS NEEDED FOR WHEEZING OR SHORTNESS OF BREATH Cyanocobalamin (B-12 PO) Take by mouth. [DISCONTINUED] DULoxetine (CYMBALTA) [address] Particles Take 60 mg by mouth. tranexamic Acid (LYSTEDA) 650 MG Tablet [DISCONTINUED] Wixela Inhub 250-50 MCG/ACT AEROSOL POWDER, BREATH ACTIVATED INHALE 1 PUFF BY MOUTH INTO THE LUNGS TWICE DAILY No facility-administered encounter medications on file as of 06/06/2022. Labs: No visits with results within 7 Day(s) from this visit. Latest known visit with results is: Lab on 04/17/2022 Component Date Value Ref Range Status IRON 04/17/2022 99 50 - 212 ug/dL Final UIBC 04/17/2022 166 155 - 355 ug/dL Final TIBC 04/17/2022 265 261 - 478 ug/dl Final % Saturation 04/17/2022 37 20 - 50 % Final Ferritin 04/17/2022 88 11 - 307 ng/mL Final Glucose 04/17/2022 93 70 - 105 mg/dL Final Blood Urea Nitrogen 04/17/2022 14 7 - 25 mg/dL Final Creatinine 04/17/2022 0.8 0.6 - 1.2 mg/dL Final Sodium 04/17/2022 140 136 - 145 mEq/L Final Potassium 04/17/2022 3.6 3.5 - 5.1 mEq/L Final Chloride 04/17/2022 106 98 - 107 mEq/L Final Bicarbonate 04/17/2022 27 21 - 31 mEq/L Final Total Bilirubin 04/17/2022 0.4 0.3 - 1.0 mg/dL Final Alk. Phosphatase 04/17/2022 27 (L) 34 - 104 U/L Final Aspartate Aminotransferase 04/17/2022 15 13 - 39 U/L Final Alanine Aminotransferase 04/17/2022 8 7 - 52 U/L Final Total Protein 04/17/2022 6.3 (L) 6.4 - 8.9 g/dL Final Albumin 04/17/2022 4.3 3.5 - 5.7 g/dL Final Calcium 04/17/2022 9.2 8.6 - 10.3 mg/dL Final Anion Gap 04/17/2022 10.6 7.0 - 15.0 mEq/L Final Globulin 04/17/2022 2.0 2.0 - 3.5 g/dL Final EGFR 04/17/2022 97 >60 ml/min/1.73m2 Final Comment: This eGFR is calculated using 2020 CKD-EPI Creatinine equation without race modifier based on the NKF-ASN task force recommendations WBC 04/17/2022 4.2 4.0 - 10.0 10*3/uL Final HGB 04/17/2022 12.3 11.2 - 15.7 g/dL Final HCT 04/17/2022 35.6 34.1 - 44.9 % Final PLT 04/17/2022 231 163 - 369 10*3/uL Final MPV 04/17/2022 9.7 9.4 - 12.4 fL Final RBC 04/17/2022 4.07 3.93 - 5.22 10*6/uL Final MCV 04/17/2022 88 79 - 95 fL Final MCH 04/17/2022 30.2 25.6 - 32.2 pg Final MCHC 04/17/2022 34.6 32.2 - 36.5 g/dL Final RDW 04/17/2022 14.4 11.6 - 14.4 % Final Neutrophils % 04/17/2022 56.2 36.0 - 66.0 % Final Lymphocytes % 04/17/2022 35.2 19.0 - 40.0 % Final Monocytes % 04/17/2022 4.8 4.1 - 12.1 % Final Eosinophils % 04/17/2022 2.9 0.0 - 3.5 % Final Basophils % 04/17/2022 0.7 0.0 - 1.0 % Final Absolute Neutrophils 04/17/2022 2.4 1.4 - 6.6 10*3/uL Final Absolute Lymphocytes 04/17/2022 1.5 0.8 - 4.0 10*3/uL Final Absolute Monocytes 04/17/2022 0.2 0.2 - 1.2 10*3/uL Final Absolute Eosinophils 04/17/2022 0.1 0.0 - 0.4 10*3/uL Final Absolute Basophils 04/17/2022 0.0 0.0 - 0.1 10*3/uL Final Cosigned by Josh Akhtar DO at 06/18/2022 7:58 PM CDT documented in this encounter Miscellaneous Notes * Addendum Note - Yaquelin Jhaveri PAC - 06/06/2022 8:00 AM CDTAddended by: YAQUELIN JHAVERI on: 06/06/2022 08:45 AM Modules accepted: Orders documented in this encounter Plan of Treatment Not on file documented as of this encounter Results * FOLIC ACID (FOLATE) (08/30/2022 10:24 AM CDT) Folate >20.00 >=5.90 ng/mL [facility] Blood 08/30/2022 10:2 4 AM CDT [facility] - 08/31/2022 2:10 PM CDT Release to patient->Immediate IS THE PATIENT REQUIRED TO BE FASTING FOR 12 HOURS?->No Yaquelin Jhaveri PAC CHEMISTRY ORDERABLES Final Result Performing Organization Address City/[facility]/ZIP Co de Phone Number [facility] [address] [place] [address], [place] [phone] * FERRITIN (08/30/2022 10:24 AM CDT) Ferritin 31 11 - 307 ng/mL [facility] Blood 08/30/2022 10:2 4 AM CDT [facility] - 08/31/2022 2:03 PM CDT Release to patient->Immediate Yaquelin Jhaveri PAC CHEMISTRY ORDERABLES Final Result [facility] [address] [place] [address], [place] [phone] * (ABNORMAL) IRON W/ IRON BINDING CAPACITY [place] (08/30/2022 10:24 AM CDT) IRON 60 50 - 212 ug/dL [facility] UIBC 250 155 - 355 ug/dL [facility] TIBC 310 261 - 478 ug/dl [facility] % Saturation 19(L) 20 - 50 % [facility] Blood 08/30/2022 10:2 4 AM CDT Narrative [facility] - 08/30/2022 12:48 PM CDT Release to patient->Immediate Yaquelin Jhaveri PAC LAB SEND OUTS Final Resu lt [facility] [place] [address], * (ABNORMAL) LACTATE DEHYDROGENASE (LD) (08/30/2022 10:24 AM CDT) LDH 103(L) 140 - 271 U/L [facility] Blood 08/30/2022 10:2 4 AM CDT [facility] - 08/30/2022 12:48 PM CDT Release to patient->Immediate Yaquelin Jhaveri PAC CHEMISTRY ORDERABLES Final Result Performing Organization Address City/[facility] Co de Phone Number [facility] [place] [address], [place] [phone] * (ABNORMAL) CMP (COMPREHENSIVE METABOLIC PANEL) (08/30/2022 10:24 AM CDT) Glucose 85 70 - 105 mg/dL [facility] Blood Urea Nitrogen 12 7 - 25 mg/dL [facility] Creatinine 0.8 0.6 - 1.2 mg/dL [facility] Sodium 142 136 - 145 mEq/L [facility] Potassium 3.9 3.5 - 5.1 mEq/L [facility] Chloride 107 98 - 107 mEq/L [facility] Bicarbonate 26 21 - 31 mEq/L [facility] Total Bilirubin 0.4 0.3 - 1.0 mg/dL [facility] Alk. Phosphatase 32(L) 34 - 104 U/L [facility] Aspartate Aminotransferase 16 13 - 39 U/L [facility] Alanine Aminotransferase 11 7 - 52 U/L [facility] Total Protein 6.7 6.4 - 8.9 g/dL [facility] Albumin 4.6 3.5 - 5.7 g/dL [facility] Calcium 9.5 8.6 - 10.3 mg/dL [facility] Anion Gap 12.9 7.0 - 15.0 mEq/L [facility] Globulin 2.1 2.0 - 3.5 g/dL [facility] EGFR 97 >60 ml/min/1. 73m2 [facility] Comment: This eGFR is calculated using 2020 CKD-EPI Creatinine equation without race modifier based on the NKF-ASN task force recommendations Blood 08/30/2022 10:2 4 AM CDT Narrative [facility] - 08/30/2022 12:48 PM CDT Release to patient->Immediate IS THE PATIENT REQUIRED TO BE FASTING FOR 8 HOURS?->No Yaquelin Jhaveri PAC CHEMISTRY ORDERABLES Final Result [facility] [address] [place] [address], * (ABNORMAL) COMPLETE BLOOD COUNT (CBC) WITH DIFF (08/30/2022 10:24 AM CDT) WBC 3.5(L) 4.0 - 10.0 10*3/uL [facility] HGB 13.0 11.2 - 15.7 g/dL [facility] HCT 38.5 34.1 - 44.9 % [facility] PLT 247 163 - 369 10*3/uL [facility] MPV 9.7 9.4 - 12.4 fL [facility] RBC 4.22 3.93 - 5.22 10*6/uL [facility] MCV 91 79 - 95 fL [facility] MCH 30.8 25.6 - 32.2 pg [facility] MCHC 33.8 32.2 - 36.5 g/dL [facility] RDW 12.2 11.6 - 14.4 % [facility] Absolute Neutrophil Count 2,006 cells/uL [facility] Absolute Seg Count 2,006 1,440 - 6,600 cells/uL [facility] Absolute Lymph Count 1,162 760 - 4,000 cells/uL [facility] Absolute [place] Count 282 160 - 1,200 cells/uL [facility] Absolute Eos Count 70 0 - 300 cells/uL [facility] Segmented Neutrophils 57 36 - 66 % [facility] Lymphocytes 33 19 - 40 % [facility] Monocytes 8 4 - 12 % [facility] Eosinophils 2 0 - 3 % [facility] WBC Estimate Low [facility] Platelet Estimate Normal [facility] RBC Morphology Normal [facility] Blood 08/30/2022 10:2 4 AM CDT Narrative [facility] - 08/30/2022 2:26 PM CDT Release to patient->Immediate Yaquelin Jhaveri PAC HEMATOLOGY ORDERABLES Mary iverson Result [facility] [address] [place] [address], * VITAMIN D, 25 HYDROXY TOTAL (06/07/2022 1:11 PM CDT) 25() Vitamin D, Total 34.2 30.0 - 100.0 ng/mL [facility] Comment: The Clinical Guidelines Subcommittee of the Endocrine Society Task Force established the guidelines below for recommended serum 25(OH) vitamin D levels. ??Other clinical reference citations may show different values. Deficient ? <20 ? Insufficient ? 20 to <30 ? Sufficient ? 30 to 100 ? Upper Safety Limit ?>100 Blood 06/07/2022 1:11 PM CDT Narrative [facility] - 06/08/2022 2:59 PM CDT Release to patient->Immediate Yaquelin Jhaveri PAC CHEMISTRY ORDERABLES Final Result Performing Organization Address [facility] de Phone Number [facility] [address] [place] [address], * VITAMIN B12 (06/07/2022 1:11 PM CDT) Vitamin B12 296 180 - 914 pg/mL [facility] Blood 06/07/2022 1:11 PM CDT [facility] - 06/08/2022 3:13 PM CDT Release to patient->Immediate Yaquelin Jhaveri PAC CHEMISTRY ORDERABLES Final Result Performing Organization Address [facility] de Phone Number [facility] [address] [place] [address], [place] [phone] * FERRITIN (06/07/2022 1:11 PM CDT) Ferritin 44 11 - 307 ng/mL [facility] Blood 06/07/2022 1:11 PM CDT [facility] - 06/08/2022 3:06 PM CDT Release to patient->Immediate Yaquelin Jhaveri PAC CHEMISTRY ORDERABLES Final Result Performing Organization Address [facility] Co de Phone Number [facility] [address] [place] [address], * IRON W/ IRON BINDING CAPACITY [place] (06/07/2022 1:11 PM CDT) IRON 86 50 - 212 ug/dL [facility] UIBC 222 155 - 355 ug/dL [facility] TIBC 308 261 - 478 ug/dl [facility] % Saturation 28 20 - 50 % [facility] Blood 06/07/2022 1:11 PM CDT Narrative [facility] - 06/07/2022 2:12 PM CDT Release to patient->Immediate us Yaquelin Jhaveri PAC LAB SEND OUTS Final Resu lt Performing Organization Address City/[facility]/ZIP Co de Phone Number [facility] [address] [address], [place] [phone] * (ABNORMAL) LACTATE DEHYDROGENASE (LD) (06/07/2022 1:11 PM CDT) LDH 119(L) 140 - 271 U/L [facility] Blood 06/07/2022 1:11 PM CDT [facility] - 06/07/2022 2:12 PM CDT Release to patient->Immediate us Yaquelin Jhaveri PAC CHEMISTRY ORDERABLES Final Result Performing Organization Address City/[facility]/ZIP Co de Phone Number [facility] [address] [address], [place] [phone] * CMP (COMPREHENSIVE METABOLIC PANEL) (06/07/2022 1:11 PM CDT) Glucose 90 70 - 105 mg/dL [facility] Blood Urea Nitrogen 12 7 - 25 mg/dL [facility] Creatinine 0.9 0.6 - 1.2 mg/dL [facility] Sodium 140 136 - 145 mEq/L [facility] Potassium 3.7 3.5 - 5.1 mEq/L [facility] [place] Chloride 102 98 - 107 mEq/L [facility] Bicarbonate 29 21 - 31 mEq/L [facility] Total Bilirubin 0.5 0.3 - 1.0 mg/dL [facility] Alk. Phosphatase 38 34 - 104 U/L [facility] Aspartate Aminotransferase 19 13 - 39 U/L [facility] Alanine Aminotransferase 13 7 - 52 U/L [facility] Total Protein 7.4 6.4 - 8.9 g/dL [facility] Albumin 4.7 3.5 - 5.7 g/dL [facility] Calcium 10.0 8.6 - 10.3 mg/dL [facility] Anion Gap 12.7 7.0 - 15.0 mEq/L [facility] Globulin 2.7 2.0 - 3.5 g/dL [facility] EGFR 85 >60 ml/min/1. 73m2 [facility] Comment: This eGFR is calculated using 2020 CKD-EPI Creatinine equation without race modifier based on the NKF-ASN task force recommendations Blood 06/07/2022 1:11 PM CDT Narrative [facility] - 06/07/2022 2:12 PM CDT Release to patient->Immediate IS THE PATIENT REQUIRED TO BE FASTING FOR 8 HOURS?->No Yaquelin Jhaveri PAC CHEMISTRY ORDERABLES Final Result [facility] [address] [id number], * (ABNORMAL) COMPLETE BLOOD COUNT (CBC) WITH DIFF (06/07/2022 1:11 PM CDT) WBC 8.1 4.0 - 10.0 10*3/uL [facility] HGB 13.6 11.2 - 15.7 g/dL [facility] HCT 39.1 34.1 - 44.9 % [facility] PLT 277 163 - 369 10*3/uL [facility] MPV 9.7 9.4 - 12.4 fL [facility] RBC 4.40 3.93 - 5.22 10*6/uL [facility] MCV 89 79 - 95 fL [facility] MCH 30.9 25.6 - 32.2 pg [facility] MCHC 34.8 32.2 - 36.5 g/dL [facility] RDW 12.6 11.6 - 14.4 % [facility] Absolute Neutrophil Count 5,810 cells/uL [facility] Absolute Seg Count 5,810 1,440 - 6,600 cells/uL [facility] Absolute Lymph Count 1,533 760 - 4,000 cells/uL [facility] Absolute [place] Count 404 160 - 1,200 cells/uL [facility] Absolute Eos Count 323(H) 0 - 300 cells/uL [facility] Segmented Neutrophils 72(H) 36 - 66 % [facility] Lymphocytes 19 19 - 40 % [facility] Monocytes 5 4 - 12 % [facility] Eosinophils 4(H) 0 - 3 % [facility] WBC Estimate Normal [facility] Platelet Estimate Normal [facility] RBC Morphology Normal [facility] Blood 06/07/2022 1:11 PM CDT Narrative [facility] - 06/07/2022 2:12 PM CDT Release to patient->Immediate Yaquelin Jhaveri PAC HEMATOLOGY ORDERABLES Mary l Result [facility] [address] [place] [address], * C-REACTIVE PROTEIN (CRP) QUANT (06/06/2022 8:47 AM CDT) CRP <5.0 <5.0 mg/L [facility] Blood 06/06/2022 8:47 AM CDT Narrative [facility] - 06/08/2022 2:37 PM CDT Release to patient->Immediate Yaquelin Jhaveri PAC CHEMISTRY ORDERABLES Final Result [facility] [place] [address], [place] [phone] * ERYTHROCYTE SEDIMENTATION RATE (ESR) (06/06/2022 8:47 AM CDT) Erythrocyte Sedimentation Rate 5 0 - 30 mm/hr [facility] Blood 06/06/2022 8:47 AM CDT Narrative [facility] - 06/06/2022 10:25 AM CDT Release to patient->Immediate Yaquelin Jhaveri PAC HEMATOLOGY ORDERABLES Mary l Result [facility] [address] [place] [address], [place] [phone] documented in this encounter Visit Diagnoses Diagnosis Iron deficiency anemia, unspecified iron deficiency anemia type- Primary Vitamin D deficiency Unspecified vitamin D deficiency Iron deficiency anemia, unspecified iron deficiency anemia type Vitamin D deficiency Unspecified vitamin D deficiency Iron deficiency anemia, unspecified iron deficiency anemia type Vitamin D deficiency Unspecified vitamin D deficiency Iron deficiency anemia, unspecified iron deficiency anemia type documented in this encounter Care Teams Clarifying Plant Operator Relationship Specialty Start Date End Date Jacquie Fair, CREDIT ADMINISTRATION OFFICER, PANEL BUILDER [address] [facility], [address] [place] [address] PCP - General Advanced Practice Nurse 07/11/21 documented as of this encounter
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
--- OUTSIDE RECORDS SUMMARY | 2024-02-27 09:41 | XMS_ITS | Encounter Summary ---
Author Organization [facility] Address [address] [place] [address] Phone Care Team Providers Care Settlement Worker Name Role Phone Jacquie Fair APRN, CNP Primary Care Provid er Encounter Details Date Type Department Care Team (Late st Contact Info) Description 07/16/2023 1:35 PM CDT Lab [facility] [address] [address] Lab, Cc [facility] Iron deficiency anemia, unspecified iron [...] R MA documented as of this encounter Plan of Treatment Not on file documented as of this encounter Procedures Procedure Name Priority Date/Time Associated Diagnosis Comments IRON W/ IRON BINDING CAPACITY [place] Routine 07/16/2023 1:40 PM CDT CBC WITH AUTO DIFF [place] Routine 07/16/2023 1:40 PM CDT VITAMIN B12 Routine 07/16/2023 1:40 PM CDT FOLIC ACID (FOLATE) Routine 07/16/2023 1 :40 PM CDT FERRITIN Routine 07/16/2023 1:40 PM CDT CMP (COMPREHENSIVE METABOLIC PANEL) Routine 07/16/2023 1:40 PM CDT documented in this encounter Results * VITAMIN B12 (07/16/2023 1:40 PM CDT) Vitamin B12 256 180 - 914 pg/mL [facility] 07/16/2023 1:40 PM CDT Jacquie Hugo Fair SUPERVISOR [employer], ACT TUTOR CHEMISTRY ORDERABLES Final Result Performing Organization Address City/[facility]/ZIP Co de Phone Number [facility] [place] [address], * FOLIC ACID (FOLATE) (07/16/2023 1:40 PM CDT) Folate >20.00 >=5.90 ng/mL [facility] 07/16/2023 1:40 PM CDT Jacquie Hugo Palomot SUPERVISOR [employer], ACT TUTOR CHEMISTRY ORDERABLES Final Result [facility] [address] [place] [address], * FERRITIN (07/16/2023 1:40 PM CDT) Ferritin 16 11 - 307 ng/mL [facility] 07/16/2023 1:40 PM CDT Jacquie Fair SUPERVISOR [employer], ACT TUTOR CHEMISTRY ORDERABLES Final Result [facility] [address] [place] [address], * CBC WITH AUTO DIFF [place] (07/16/2023 1:40 PM CDT) Pathologist [facility] WBC 4.0 4.0 - 10.0 10*3/uL [facility] HGB 12.1 11.2 - 15.7 g/dL [facility] HCT 36.1 34.1 - 44.9 % [facility] PLT 225 163 - 369 10*3/uL [facility] MPV 9.9 9.4 - 12.4 fL [facility] RBC 4.01 3.93 - 5.22 10*6/uL [facility] MCV 90 79 - 95 fL [facility] MCH 30.2 25.6 - 32.2 pg [facility] MCHC 33.5 32.2 - 36.5 g/dL [facility] RDW 12.5 11.6 - 14.4 % [facility] Neutrophils % 53.6 36.0 - 66.0 % [facility] Lymphocytes % 37.2 19.0 - 40.0 % [facility] Monocytes % 5.5 4.1 - 12.1 % [facility] Eosinophils % 2.5 0.0 - 3.5 % [facility] Basophils % 1.0 0.0 - 1.0 % [facility] Absolute Neutrophils 2.2 1.4 - 6.6 10*3/uL [facility] Absolute Lymphocytes 1.5 0.8 - 4.0 10*3/uL [facility] Absolute Monocytes 0.2 0.2 - 1.2 10*3/uL [facility] Absolute Eosinophils 0.1 0.0 - 0.4 10*3/uL [facility] Absolute Basophils 0.0 0.0 - 0.1 10*3/uL [facility] 07/16/2023 1:40 PM CDT Jacquie Fair SUPERVISOR [employer], ACT TUTOR LAB SEND OUTS Mary l Result Performing Organization Address City/[facility]/ZIP Co de Phone Number [facility] [place] [address], [place] [phone] * IRON W/ IRON BINDING CAPACITY [place] (07/16/2023 1:40 PM CDT) IRON 84 50 - 212 ug/dL [facility] UIBC 208 155 - 355 ug/dL [facility] TIBC 292 261 - 478 ug/dl [facility] % Saturation 29 20 - 50 % [facility] 07/16/2023 1:40 PM CDT Jacquie Fair SUPERVISOR [employer], ACT TUTOR LAB SEND OUTS Mary l Result Performing Organization Address City/[facility]/ZIP Co de Phone Number [facility] [place] [place] [address], [place] [phone] * (ABNORMAL) CMP (COMPREHENSIVE METABOLIC PANEL) (07/16/2023 1:40 PM CDT) Glucose 101 70 - 105 mg/dL [facility] Blood Urea Nitrogen 13 7 - 25 mg/dL [facility] Creatinine 0.8 0.6 - 1.2 mg/dL [facility] Sodium 142 136 - 145 mEq/L [facility] Potassium 3.8 3.5 - 5.1 mEq/L [facility] Chloride 106 98 - 107 mEq/L [facility] Bicarbonate 29 21 - 31 mEq/L [facility] Total Bilirubin 0.5 0.3 - 1.0 mg/dL [facility] Alk. Phosphatase 27(L) 34 - 104 U/L [facility] Aspartate Aminotransferase 14 13 - 39 U/L [facility] Alanine Aminotransferase 12 7 - 52 U/L [facility] Total Protein 6.4 6.4 - 8.9 g/dL [facility] Albumin 4.3 3.5 - 5.7 g/dL [facility] Calcium 9.3 8.6 - 10.3 mg/dL [facility] Anion Gap 10.8 7.0 - 15.0 mEq/L [facility] Globulin 2.1 2.0 - 3.5 g/dL [facility] EGFR 97 >60 ml/min/1. 73m2 [facility] Comment: This eGFR is calculated using 2020 CKD-EPI Creatinine equation without race modifier based on the NKF-ASN task force recommendations 07/16/2023 1:40 PM CDT us Jacquie Fair APRN, NISHI CHEMISTRY ORDERABLES Final Result [facility] [place] [address], documented in this encounter Visit Diagnoses Diagnosis Iron deficiency anemia, unspecified iron deficiency anemia type documented in this encounter Care Teams Settlement Worker Relationship Specialty Start Date End Date Jacquie Fair APRN, ACT TUTOR [address] [facility] [facility], [address] [place] [address] PCP - General Advanced Practice Nurse 07/11/21 documented as of this encounter
--- OUTSIDE RECORDS SUMMARY | 2024-02-27 09:41 | XMS_ITS | Encounter Summary ---
Author Organization [employer] Care Team Providers Care Grapple Skidder Operator Name Role Phone Jacquie Fair APRN, [...] suspected to have Coronavirus/COVID-19? No / Unsure 08/30/2022 10:17 AM CDT documented as of this encounter Plan of Treatment Not on file documented as of this encounter Visit Diagnoses Not on filedocumented in this encounter Care Teams Grapple Skidder Operator Relationship Specialty Start Date End Date Jacquie Fair APRN, CNP [address] [facility], [address] [place] [address] PCP - General Advanced Practice Nurse 07/11/21 documented as of this encounter
--- OUTSIDE RECORDS SUMMARY | 2024-02-27 09:41 | XMS_ITS | Encounter Summary ---
Author Organization [facility] Address [address] [place] [address] Phone Care Team Providers Care Core Stripper Name Role Phone Jacquie Fair APRN, CNP Primary Care Provid er Encounter Details Date Type Department Care Team (Late st Contact Info) Description 06/07/2022 1:10 PM CDT Lab [facility] [address] [address] Lab, Cc [facility] Iron deficiency anemia, unspecified iron deficiency anemia type; Vitamin D deficiency Social History Tobacco Use [...] Name Priority Date/Time Associated Diagnosis Comments VITAMIN D, 25 HYDROXY TOTAL Routine 06/07/2022 1:11 PM CDT Vitamin D deficiency IRON W/ IRON BINDING CAPACITY [place] Routine 06/07/2022 1:11 PM CDT Iron deficiency anemia, unspecified iron deficiency anemia type VITAMIN B12 Routine 06/07/2022 1:11 PM CDT Iron deficiency anemia, unspecified iron deficiency anemia type LACTATE DEHYDROGENASE (LD) Routine 06/07/2022 1:11 PM CDT Iron deficiency anemia, unspecified iron deficiency anemia type FERRITIN Routine 06/07/2022 1:11 PM CDT Iron deficiency anemia, unspecified iron deficiency anemia type CMP (COMPREHENSIVE METABOLIC PANEL) Routine 06/07/2022 1:11 PM CDT Iron deficiency anemia, unspecified iron deficiency anemia type COMPLETE BLOOD COUNT (CBC) WITH DIFF Routine 06/07/2022 1:11 PM CDT Iron deficiency anemia, unspecified iron deficiency anemia type documented in this encounter Results * VITAMIN D, 25 HYDROXY TOTAL (06/07/2022 1:11 PM CDT) [facility] 25() Vitamin D, Total 34.2 30.0 - 100.0 ng/mL [facility] Comment: The Clinical Guidelines Subcommittee of the Endocrine Society Task Force established the guidelines below for recommended serum 25(OH) vitamin D levels. ??Other clinical reference citations may show different values. Deficient ? <20 ? Insufficient ? 20 to <30 ? Sufficient ? 30 to 100 ? Upper Safety Limit ?>100 Blood 06/07/2022 1:[address] [facility] - 06/08/2022 2:59 PM CDT Release to patient->Immediate Yaquelin Barker PAC CHEMISTRY ORDERABLES Final Result Performing Organization Address City/[facility]/ZIP Co de Phone Number CANCER BLEACH MIX[facility] [address] [place] [address], [place] [phone] * VITAMIN B12 (06/07/2022 1:11 PM CDT) Vitamin B12 296 180 - 914 pg/mL [facility] Blood 06/07/2022 1:11 PM CDT Narrative [facility] - 06/08/2022 3:13 PM CDT Release to patient->Immediate Yaquelin Barker PAC CHEMISTRY ORDERABLES Final Result Performing Organization Address [facility] Co de Phone Number CANC[facility]LEACH M[facility] [address] [place] [address], [place] [phone] * FERRITIN (06/07/2022 1:11 PM CDT) Ferritin 44 11 - 307 ng/mL [facility] Blood 06/07/2022 1:11 PM CDT [facility] 06/08/2022 3:06 PM CDT Release to patient->Immediate Yaquelin [place] PAC CHEMISTRY ORDERABLES Final Result Performing Organization Address City/[facility]/ZIP Co de Phone Number [facility] BLEACH MIX[facility] [address] [place] [address], [place] [phone] * IRON W/ IRON BINDING CAPACITY OH (06/07/2022 1:11 PM CDT) IRON 86 50 - 212 ug/dL [facility] UIBC 222 155 - 355 ug/dL [facility] TIBC 308 261 - 478 ug/dl [facility] % Saturation 28 20 - 50 % [facility] Blood 06/07/2022 1:11 PM CDT Narrative [facility] - 06/07/2022 2:12 PM CDT Release to patient->Immediate Yaquelin Barker PAC LAB SEND OUTS Final Resu lt Performing Organization Address [facility] Co de Phone Number [facility] [address] [address], * (ABNORMAL) LACTATE DEHYDROGENASE (LD) (06/07/2022 1:11 PM CDT) LDH 119(L) 140 - 271 U/L [facility] Blood 06/07/2022 1:11 PM CDT Narrative [facility] - 06/07/2022 2:12 PM CDT Release to patient->Immediate Yaquelin Barker PAC CHEMISTRY ORDERABLES Final Result Performing Organization Address [facility] de Phone Number [facility] [address] [place] [address], * CMP (COMPREHENSIVE METABOLIC PANEL) (06/07/2022 1:11 PM CDT) Glucose 90 70 - 105 mg/dL [facility] Blood Urea Nitrogen 12 7 - 25 mg/dL [facility] Creatinine 0.9 0.6 - 1.2 mg/dL [facility] Sodium 140 136 - 145 mEq/L [facility] Potassium 3.7 3.5 - 5.1 mEq/L [facility] Chloride 102 98 - 107 mEq/L [facility] Bicarbonate 29 21 - 31 mEq/L [facility] Total Bilirubin 0.5 0.3 - 1.0 mg/dL [facility] Alk. Phosphatase 38 34 - 104 U/L [facility] Aspartate Aminotransferase 19 13 - 39 U/L [facility] Alanine Aminotransferase 13 7 - 52 U/L [facility] Total Protein 7.4 6.4 - 8.9 g/dL [facility] Albumin 4.7 3.5 - 5.7 g/dL [facility] Calcium 10.0 8.6 - 10.3 mg/dL [facility] Anion Gap 12.7 7.0 - 15.0 mEq/L [facility] Globulin 2.7 2.0 - 3.5 g/dL [facility] EGFR 85 >60 ml/min/1. 73m2 [facility] Comment: This eGFR is calculated using 2020 CKD-EPI Creatinine equation without race modifier based on the NKF-ASN task force recommendations Blood 06/07/2022 1:11 PM CDT Narrative [facility] - 06/07/2022 2:12 PM CDT Release to patient->Immediate IS THE PATIENT REQUIRED TO BE FASTING FOR 8 HOURS?->No Yaquelin Barker PAC CHEMISTRY ORDERABLES Final Result [facility] [place] [address], * (ABNORMAL) COMPLETE BLOOD COUNT (CBC) WITH DIFF (06/07/2022 1:11 PM CDT) WBC 8.1 4.0 - 10.0 10*3/uL [facility] HGB 13.6 11.2 - 15.7 g/dL [facility] HCT 39.1 34.1 - 44.9 % [facility] PLT 277 163 - 369 10*3/uL [facility] MPV 9.7 9.4 - 12.4 fL [facility] RBC 4.40 3.93 - 5.22 10*6/uL [facility] MCV 89 79 - 95 fL [facility] MCH 30.9 25.6 - 32.2 pg [facility] MCHC 34.8 32.2 - 36.5 g/dL [facility] RDW 12.6 11.6 - 14.4 % [facility] Absolute Neutrophil Count 5,810 cells/uL [facility] Absolute Seg Count 5,810 1,440 - 6,600 cells/uL [facility] Absolute Lymph Count 1,533 760 - 4,000 cells/uL [facility] Absolute [place] Count 404 160 - 1,200 cells/uL [facility] Absolute Eos Count 323(H) 0 - 300 cells/uL [facility] Segmented Neutrophils 72(H) 36 - 66 % [facility] Lymphocytes 19 19 - 40 % [facility] Monocytes 5 4 - 12 % [facility] Eosinophils 4(H) 0 - 3 % [facility] WBC Estimate Normal [facility] Platelet Estimate Normal [facility] RBC Morphology Normal [facility] Blood 06/07/2022 1:11 PM CDT Narrative [facility] - 06/07/2022 2:12 PM CDT Release to patient->Immediate Yaquelin Barker [facility] HEMATOLOGY ORDERABLES Mary iverson Result [facility] [address] [place] [address], documented in this encounter Visit Diagnoses Diagnosis Iron deficiency anemia, unspecified iron deficiency anemia type Vitamin D deficiency Unspecified vitamin D deficiency documented in this encounter Care Teams Core Stripper Relationship Specialty Start Date End Date Jacquie Fair APRN, CHERRY GROWER [address], [address] [place] [address] PCP - General Advanced Practice Nurse 07/11/21 documented as of this encounter
--- OUTSIDE RECORDS SUMMARY | 2024-02-27 09:41 | XMS_ITS | Encounter Summary ---
Author Organization [facility] Address [address] [place] [address] Phone Care Team Providers Care Head Char Filter Tank Tender Name Role Phone Jacquie Fair APRN, CNP Primary Care Provid er Encounter Details Date Type Department Care Team (Late st Contact Info) Description 06/06/2022 8:45 AM CDT Lab [facility] [address] [address] Lab, Cc [facility] Iron deficiency anemia, unspecified iron deficiency [...] AM CDT documented as of this encounter Functional Status * Question Answer Date of Assessment Author Little interest or pleasure in doing things Not at all 06/06/2022 8:08 AM CDT Seble Zimmer , YAHIR Feeling down, depressed, or hopeless Not at [...] Procedure Name Priority Date/Time Associated Diagnosis Comments ERYTHROCYTE SEDIMENTATION RATE (ESR) Routine 06/06/2022 8:47 AM CDT Iron deficiency anemia, unspecified iron deficiency anemia type Vitamin D deficiency C-REACTIVE PROTEIN (CRP) QUANT Routine 06/06/2022 8:47 AM CDT Iron deficiency anemia, unspecified iron deficiency anemia type Vitamin D deficiency documented in this encounter Results * ERYTHROCYTE SEDIMENTATION RATE (ESR) (06/06/2022 8:47 AM CDT) Erythrocyte Sedimentation Rate 5 0 - 30 mm/hr [facility] Blood 06/06/2022 8:47 AM CDT [facility] - 06/06/2022 10:25 AM CDT Release to patient->Immediate Yaquelin Barker PAC HEMATOLOGY ORDERABLES Mary l Result Performing Organization Address [facility]/ZIP Co de Phone Number [facility] [place] [address], * C-REACTIVE PROTEIN (CRP) QUANT (06/06/2022 8:47 AM CDT) CRP <5.0 <5.0 mg/L [facility] Blood 06/06/2022 8:47 AM CDT [facility] LEVER OPERATOR - 06/08/2022 2:37 PM CDT Release to patient->Immediate Yaquelin Barker PAC CHEMISTRY ORDERABLES Final Result [facility] LEVER OPERATOR [facility] [address] [place] [address], documented in this encounter Visit Diagnoses Diagnosis Iron deficiency anemia, unspecified iron deficiency anemia type Vitamin D deficiency Unspecified vitamin D deficiency documented in this encounter Care Teams Head Char Filter Tank Tender Relationship Specialty Start Date End Date Jacquie Fair APRN, MAINTENANCE AND UTILITIES SUPERVISOR [address], [address] [place] [address] PCP - General Advanced Practice Nurse 07/11/21 documented as of this encounter
--- OUTSIDE RECORDS SUMMARY | 2024-02-27 09:41 | XMS_ITS | Encounter Summary ---
Author Organization [facility] Address [address] [address] Phone Care Team Providers Care Police Matron Name Role Phone Jacquie Fair APRN, CNP Primary Care Provid er Reason for Visit * Reason Comments Follow-up Encounter Details Date Type Department Care Team (Late st Contact Info) Description 02/28/2022 8:45 AM SHOW HOST/HOSTESS Office Visit [facility] [address] [facility] [address] [place] [address] Josh Akhtar, DO [address] [place] [address] Iron deficiency anemia, unspecified iron [...] Recorded Total Score - Questions 1-9 0 /0 11/2021 Comments Unknown Sex and Gender Information [...] Coronavirus/COVID-19? No / Unsure 02/28/2022 8:32 AM SHOW HOST/HOSTESS documented as of this encounter Last Filed Vital Signs Vital Sign Reading Time Taken Comments Blood Pressure 114/68 02/28/2022 8:39 AM SHOW HOST/HOSTESS Pulse 106 02/28/2022 8:39 AM SHOW HOST/HOSTESS Temperature 36.6 ??C (97.8 ??F) 02/28/2022 8:39 AM CS T Respiratory Rate - - Oxygen Saturation 99% 02/28/2022 8:39 AM SHOW HOST/HOSTESS Inhaled Oxygen Concentration - - Weight 44.9 kg (99 lb) 02/28/2022 8:39 AM SHOW HOST/HOSTESS Height - - Body Mass Index 18.11 12/05/2021 8:45 AM CDT documented in this encounter Functional Status * Question Answer Date of Assessment Author Little interest or pleasure in doing things Not at all 02/28/2022 8:37 AM Josefa Lawson LPN Feeling down, depressed, or hopeless Not at all 02/28/2022 8:37 AM SHOW HOST/HOSTESS Josefa Conde LPN * Over the past 2 weeks, how often have you been bothered by any of the following problems? Question Answer Date of Assessment Author Patient Health Questionnaire -2 Score 0 02/28/2022 8:37 AM SHOW HOST/HOSTESS Josefa Conde LPN documented as of this encounter Progress Notes * Josh Akhtar DO - 02/28/2022 8:45 AM CST Images from the original note were not included. Patient: Shagufta Lamar Age: 36 y.o. : 1985 Encounter Dept: [facility] Encounter Date: 02/28/2022 Care Team: Current Providers PCP: Jacquie Fair APRN, CNP Encounter Provider: Josh Akhtar DO Referring Provider: not found Consulting Physician: Josh Akhtar DO PRIMARY PHYSICIAN: Jacquie Fair APRN, CNP PATIENT IDENTIFICATION: This is a very pleasant 36-year-old female. HISTORY OF PRESENT ILLNESS: Shagufta is doing well. No complaints. Asymptomatic. Here for followup. No change in condition. She is slated to have an endometrial biopsy and ablation in March. She has been seen by GI and has declined EGD and colonoscopy. Otherwise, no change in condition. She is on tranexamic acid. Periods are dramatically better. DIAGNOSIS: 1. Iron deficiency. 2. Dysfunctional uterine bleeding. 3. Severe antral gastritis on CT imaging. PAST TREATMENT: 1. Colonoscopy in 2008. 2. Patient had dilatation and curettage 12/28/20. CURRENT TREATMENT: 1. Tranexamic acid per FURNITURE MOVER. 2. Uterine biopsy and ablation per FURNITURE MOVER in March. 3. IV iron supplementation (taking [...] antral gastritis on CT imaging. PLAN: 1. Check iron stores today. 2. IV iron p.r.n. 3. Stressed importance of following up with GI for EGD and colonoscopy. Patient understands and would like to wait. 4. She is agreed if she is iron deficient, she will get that done. 5. Lab today. 6. Follow up in 12 weeks. TIME SPENT: REVIEW OF SYSTEMS: See HPI; [...] EXTREMITIES: No clubbing, cyanosis, or edema. SKIN: No ecchymosis, petechiae, or rashes. NEURO: Nonfocal. MUSCULOSKELETAL: No joint tenderness or effusion. No spine tenderness. LABORATORY/PATHOLOGY/IMAGING NOTES: All lab results shown below reviewed. Josh Akhtar, DO, FACOI/mgo Vitals: Vitals: 02/28/22 0839 BP: 114/68 Pulse: 106 Temp: 97.8 ??F (36.6 ??C) SpO2: 99% Weight: (!) 99 lb (44.9 kg) Body surface area is 1.4 meters squared. Body mass index is 18.11 kg/m??. Pain Score: 0 - No pain Allergies: Allergies Allergen Reactions ??? Cephalosporins Diarrhea and Vomiting CDIF ??? Codeine Unknown ??? Latex Rash ??? Penicillins Rash PMH/SgH/FH/SH: Past medical, surgical, family and social histories were reviewed at this visit. Past Medical History Positives Diagnosis Date ??? ADHD ??? Fibromyalgia ??? Mario's thyroiditis Past Surgical History: Procedure Laterality Date ??? SECTION ??? COLON SURGERY ??? DILATION AND CURETTAGE ??? HC TUBING FLEXIBLE S LEEP DISPOSABLE 05/16IN X 2FT ??? REMOVAL OF FALLOPIAN TUBE [...] Current Medications: Outpatient Encounter Medications as of 02/28/2022 Medication Sig Dispense Refill ??? albuterol 108 (90 Base) MCG/ACT Aerosol Solution INHALE 2 PUFFS BY MOUTH EVERY 6 HOURS NEEDED FOR WHEEZING OR SHORTNESS OF BREATH ??? Cyanocobalamin (B-12 PO) Take by mouth. ??? [DISCONTINUED] DULoxetine (CYMBALTA) [address] Particles ??? DULoxetine (CYMBALTA) [address] Particles Take 60 mg by mouth. ??? [DISCONTINUED] Ferrous Sulfate (Iron) 325 (65 Fe) MG Tablet Take by mouth. ??? tranexamic Acid (LYSTEDA) 650 MG Tablet ??? Wixela Inhub 250-50 MCG/ACT AEROSOL POWDER, BREATH ACTIVATED INHALE 1 PUFF BY MOUTH INTO THE LUNGS TWICE DAILY No facility-administered encounter medications on file as of 02/28/2022. Labs: No visits with results within 7 Day(s) from this visit. Latest known visit with results is: Lab on 01/16/2022 Component Date Value Ref Range Status ? ? Folate 01/16/2022 >20.00 >=5.90 ng/mL Final ??? Ferritin 01/16/2022 3 (A) 11 - 307 ng/mL Final ??? IRON 01/16/2022 21 (A) 50 - 212 ug/dL Final ??? UIBC 01/16/2022 318 155 - 355 ug/dL Final ??? TIBC 01/16/2022 339 261 - 478 ug/dl Final ??? % Saturation 01/16/2022 6 (A) 20 - 50 % Final ??? Glucose 01/16/2022 130 (A) 70 - 105 mg/dL Final ??? Blood Urea Nitrogen 01/16/2022 6 (A) 7 - 25 mg/dL Final ??? Creatinine 01/16/2022 0.9 0.6 - 1.2 mg/dL Final ??? Sodium 01/16/2022 141 136 - 145 mEq/L Final ??? Potassium 01/16/2022 3.9 3.5 - 5.1 mEq/L Final ??? Chloride 01/16/2022 106 98 - 107 mEq/L Final ??? Bicarbonate 01/16/2022 27 21 - 31 mEq/L Final ??? Total Bilirubin 01/16/2022 0.3 0.3 - 1.0 mg/dL Final ??? Alk. Phosphatase 01/16/2022 35 34 - 104 U/L Final ??? Aspartate Aminotransferase 01/16/2022 14 13 - 39 U/L Final ??? Alanine Aminotransferase 01/16/2022 7 7 - 52 U/L Final ??? Total Protein 01/16/2022 6.3 (A) 6.4 - 8.9 g/dL Final ??? Albumin 01/16/2022 4.1 3.5 - 5.7 g/dL Final ??? Calcium 01/16/2022 9.2 8.6 - 10.3 mg/dL Final ??? Anion Gap 01/16/2022 11.9 7.0 - 15.0 mEq/L Final ??? Globulin 01/16/2022 2.2 2.0 - 3.5 g/dL Final ? ? EGFR 01/16/2022 85 >60 ml/min/1.73m2 Final Comment: This eGFR is calculated using 2020 CKD-EPI Creatinine equation without race modifier based on the NKF-ASN task force recommendations ??? WBC 01/16/2022 4.7 4.0 - 10.0 10*3/uL Final ??? HGB 01/16/2022 11.6 11.2 - 15.7 g/dL Final ??? HCT 01/16/2022 35.9 34.1 - 44.9 % Final ??? PLT 01/16/2022 279 163 - 369 10*3/uL Final ??? MPV 01/16/2022 9.6 9.4 - 12.4 fL Final ??? RBC 01/16/2022 4.02 3.93 - 5.22 10*6/uL Final ??? MCV 01/16/2022 89 79 - 95 fL Final ??? MCH 01/16/2022 28.9 25.6 - 32.2 pg Final ??? MCHC 01/16/2022 32.3 32.2 - 36.5 g/dL Final ??? RDW 01/16/2022 11.8 11.6 - 14.4 % Final ??? Neutrophils % 01/16/2022 54.0 36.0 - 66.0 % Final ??? Lymphocytes % 01/16/2022 34.2 19.0 - 40.0 % Final ??? Monocytes % 01/16/2022 6.2 4.1 - 12.1 % Final ??? Eosinophils % 01/16/2022 4.1 (A) 0.0 - 3.5 % Final ??? Basophils % 01/16/2022 1.1 (A) 0.0 - 1.0 % Final ??? Absolute Neutrophils 01/16/2022 2.5 1.4 - 6.6 10*3/uL Final ??? Absolute Lymphocytes 01/16/2022 1.6 0.8 - 4.0 10*3/uL Final ??? Absolute Monocytes 01/16/2022 0.3 0.2 - 1.2 10*3/uL Final ??? Absolute Eosinophils 01/16/2022 0.2 0.0 - 0.4 10*3/uL Final ??? Absolute Basophils 01/16/2022 0.1 0.0 - 0.1 10*3/uL Final ??? INTRINSIC FACTOR ABS, SERUM 01/16/2022 1.0 0.0 - 1.1 AU/ML Final ??? ANTIPARIETAL CELL ANTIBODY 01/16/2022 8.2 0.0 - 20.0 UNITS Final Comment: NEGATIVE 0.0 - 20.0 EQUIVOCAL 20.1 - 24.9 POSITIVE >24.9 PARIETAL CELL ANTIBODIES ARE FOUND IN 90% OF PATIENTS WITH PERNICIOUS ANEMIA AND 30% OF FIRST DEGREE RELATIVES WITH PERNICIOUS ANEMIA. HOST/HOSTESS HOST/HOSTESS documented in this encounter Plan of Treatment Not on file documented as of this encounter Results * IRON W/ IRON BINDING CAPACITY [place] (04/17/2022 8:16 AM SHOW HOST/HOSTESS) IRON 99 50 - 212 ug/dL [facility] UIBC 166 155 - 355 ug/dL [facility] TIBC 265 261 - 478 ug/dl [facility] % Saturation 37 20 - 50 % [facility] 04/17/2022 8:16 AM SHOW HOST/HOSTESS Narrative [facility] - 04/17/2022 9:21 AM SHOW HOST/HOSTESS Release to patient->Immediate us Josh Akhtar DO LAB SEND OUTS Final Result Performing Organization Address City/[facility]/ZIP Co de Phone Number [facility] [address] [id number], [place] [phone] * FERRITIN (04/17/2022 8:16 AM SHOW HOST/HOSTESS) Ferritin 88 11 - 307 ng/mL [facility] Blood 04/17/2022 8:16 AM SHOW HOST/HOSTESS Narrative [facility] - 04/17/2022 2:04 PM SHOW HOST/HOSTESS Release to patient->Immediate Josh Akhtar DO CHEMISTRY ORDERABLES Final Res ult Performing Organization Address [facility] Co de Phone Number [facility] [address] [place] [address], [place] [phone] * (ABNORMAL) CMP (COMPREHENSIVE METABOLIC PANEL) (04/17/2022 8:16 AM SHOW HOST/HOSTESS) Glucose 93 70 - 105 mg/dL [facility] Blood Urea Nitrogen 14 7 - 25 mg/dL [facility] Creatinine 0.8 0.6 - 1.2 mg/dL [facility] Sodium 140 136 - 145 mEq/L [facility] Potassium 3.6 3.5 - 5.1 mEq/L [facility] Chloride 106 98 - 107 mEq/L [facility] Bicarbonate 27 21 - 31 mEq/L [facility] Total Bilirubin 0.4 0.3 - 1.0 mg/dL [facility] Alk. Phosphatase 27(L) 34 - 104 U/L [facility] Aspartate Aminotransferase 15 13 - 39 U/L [facility] Alanine Aminotransferase 8 7 - 52 U/L [facility] Total Protein 6.3(L) 6.4 - 8.9 g/dL [facility] Albumin 4.3 3.5 - 5.7 g/dL [facility] Calcium 9.2 8.6 - 10.3 mg/dL [facility] Anion Gap 10.6 7.0 - 15.0 mEq/L [facility] Globulin 2.0 2.0 - 3.5 g/dL [facility] EGFR 97 >60 ml/min/1. 73m2 [facility] Comment: This eGFR is calculated using 2020 CKD-EPI Creatinine equation without race modifier based on the NKF-ASN task force recommendations Blood 04/17/2022 8:16 AM SHOW HOST/HOSTESS Narrative [facility] - 04/17/2022 9:21 AM SHOW HOST/HOSTESS Release to patient->Immediate IS THE PATIENT REQUIRED TO BE FASTING FOR 8 HOURS?->No us Josh Akhtar DO CHEMISTRY ORDERABLES Final Res ult [facility] [address] [place] [address], documented in this encounter Visit Diagnoses Diagnosis Iron deficiency anemia, unspecified iron deficiency anemia type- Primary Iron deficiency anemia, unspecified iron deficiency anemia type documented in this encounter Care Teams Police Matron Relationship Specialty Start Date End Date Jacquie Fair, MARINE WATER TENDER, JAVA MOBILE DEVELOPER [address] [facility], [address] [place], [place] [address] PCP - General Advanced Practice Nurse 07/11/21 documented as of this encounter
--- OUTSIDE RECORDS SUMMARY | 2024-02-27 09:41 | XMS_ITS | Encounter Summary ---
Author Organization [facility] Care Team Providers Care Multi Purpose Machine Operator Name Role Phone Jacquie Fair APRN, CNP Primary Care Provid er Encounter Details Date Type Department Care Team (Latest Contact Info) Description 07/05/2023 Travel Social History Tobacco Use Types Packs/Day [...] on file documented as of this encounter Plan of Treatment Not on file documented as of this encounter Visit Diagnoses Not on filedocumented in this encounter Care Teams Multi Purpose Machine Operator Relationship Specialty Start Date End Date Jacquie Fair APRN, CNP [address] [facility], [address] [place] [address] PCP - General Advanced Practice Nurse 07/11/21 documented as of this encounter
--- OUTSIDE RECORDS SUMMARY | 2024-02-27 09:41 | XMS_ITS | Encounter Summary ---
Author Organization [facility] Address [address] [place] [address] Phone Care Team Providers Care State'S Attorney Name Role Phone Jacquie Fair APRN, CNP Primary Care Provid er Encounter Details Date Type Department Care Team (Late st Contact Info) Description 04/17/2022 8:00 AM FUR TRAPPER Lab [facility] [address] [address] Lab, [facility] Iron deficiency anemia, unspecified iron deficiency [...] Coronavirus/COVID-19? No / Unsure 04/17/2022 8:05 AM FUR TRAPPER documented as of this encounter Plan of Treatment Not on file documented as of this encounter Procedures Procedure Name Priority Date/Time Associated Diagnosis Comments IRON W/ IRON BINDING CAPACITY [place] Routine 04/17/2022 8:16 AM FUR TRAPPER Iron deficiency anemia, unspecified iron deficiency anemia type CBC WITH AUTO DIFF [place] Routine 04/17/2022 8:16 AM FUR TRAPPER FERRITIN Routine 04/17/2022 8:16 AM FUR TRAPPER Iron deficiency anemia, unspecified iron deficiency anemia type CMP (COMPREHENSIVE METABOLIC PANEL) Routine 04/17/2022 8:16 AM FUR TRAPPER Iron deficiency anemia, unspecified iron deficiency anemia type documented in this encounter Results * CBC WITH AUTO DIFF [place] (04/17/2022 8:16 AM FUR TRAPPER) WBC 4.2 4.0 - 10.0 10*3/uL [facility] HGB 12.3 11.2 - 15.7 g/dL [facility] HCT 35.6 34.1 - 44.9 % [facility] PLT 231 163 - 369 10*3/uL [facility] MPV 9.7 9.4 - 12.4 fL [facility] RBC 4.07 3.93 - 5.22 10*6/uL [facility] MCV 88 79 - 95 fL [facility] MCH 30.2 25.6 - 32.2 pg [facility] MCHC 34.6 32.2 - 36.5 g/dL [facility] RDW 14.4 11.6 - 14.4 % [facility] Neutrophils % 56.2 36.0 - 66.0 % [facility] Lymphocytes % 35.2 19.0 - 40.0 % [facility] Monocytes % 4.8 4.1 - 12.1 % [facility] Eosinophils % 2.9 0.0 - 3.5 % [facility] Basophils % 0.7 0.0 - 1.0 % [facility] Absolute Neutrophils 2.4 1.4 - 6.6 10*3/uL [facility] Absolute Lymphocytes 1.5 0.8 - 4.0 10*3/uL [facility] Absolute Monocytes 0.2 0.2 - 1.2 10*3/uL [facility] Absolute Eosinophils 0.1 0.0 - 0.4 10*3/uL [facility] Absolute Basophils 0.0 0.0 - 0.1 10*3/uL [facility] 04/17/2022 8:16 AM FUR TRAPPER Josh Akhtar DO LAB SEND OUTS Final Result [facility] [address] [place] [address], * (ABNORMAL) CMP (COMPREHENSIVE METABOLIC PANEL) (04/17/2022 8:16 AM FUR TRAPPER) Glucose 93 70 - 105 mg/dL [facility] Blood Urea Nitrogen 14 7 - 25 mg/dL [facility] Creatinine 0.8 0.6 - 1.2 mg/dL [facility] Sodium 140 136 - 145 mEq/L [facility] Potassium 3.6 3.5 - 5.1 mEq/L [facility] Chloride 106 98 - 107 mEq/L [facility] Bicarbonate 27 21 - 31 mEq/L [facility] Total Bilirubin 0.4 0.3 - 1.0 mg/dL [facility] Alk. Phosphatase 27(L) 34 - 104 U/L [facility] Aspartate Aminotransferase 15 13 - 39 U/L [facility] Alanine Aminotransferase 8 7 - 52 U/L [facility] Total Protein 6.3(L) 6.4 - 8.9 g/dL [facility] Albumin 4.3 3.5 - 5.7 g/dL [facility] Calcium 9.2 8.6 - 10.3 mg/dL [facility] Anion Gap 10.6 7.0 - 15.0 mEq/L [facility] Globulin 2.0 2.0 - 3.5 g/dL [facility] EGFR 97 >60 ml/min/1. 73m2 [facility] Comment: This eGFR is calculated using 2020 CKD-EPI Creatinine equation without race modifier based on the NKF-ASN task force recommendations Blood 04/17/2022 8:16 AM FUR TRAPPER Narrative [facility] - 04/17/2022 9:21 AM FUR TRAPPER Release to patient->Immediate IS THE PATIENT REQUIRED TO BE FASTING FOR 8 HOURS?->No us Josh Akhtar DO CHEMISTRY ORDERABLES Final Res ult Performing Organization Address [facility]/ZIP Co de Phone Number [facility] [address] [place] [address], [place] [phone] * FERRITIN (04/17/2022 8:16 AM FUR TRAPPER) Ferritin 88 11 - 307 ng/mL [facility] Blood 04/17/2022 8:16 AM FUR TRAPPER [facility] 04/17/2022 2:04 PM FUR TRAPPER Release to patient->Immediate us Josh Akhtra DO CHEMISTRY ORDERABLES Final Res ult Performing Organization Address [facility] Co de Phone Number [facility] [address] [place] [address], [place] [phone] * IRON W/ IRON BINDING CAPACITY [place] (04/17/2022 8:16 AM FUR TRAPPER) IRON 99 50 - 212 ug/dL [facility] UIBC 166 155 - 355 ug/dL [facility] TIBC 265 261 - 478 ug/dl [facility] % Saturation 37 20 - 50 % [facility] 04/17/2022 8:16 AM FUR TRAPPER [facility] - 04/17/2022 9:21 AM FUR TRAPPER Release to patient->Immediate us Josh Akhtar DO LAB SEND OUTS Final Result Performing Organization Address City/[facility]/ZIP Co de Phone Number [facility] [address] [place] [address], [place] [phone] documented in this encounter Visit Diagnoses Diagnosis Iron deficiency anemia, unspecified iron deficiency anemia type documented in this encounter Care Teams State'S Attorney Relationship Specialty Start Date End Date Jacquie Fair APRN, FORENSIC BALLISTICS EXPERT [address], [address] [place] [address] PCP - General Advanced Practice Nurse 07/11/21 documented as of this encounter
--- OUTSIDE RECORDS SUMMARY | 2024-02-27 09:41 | XMS_ITS | Encounter Summary ---
Author Organization [facility] Care Team Providers Care Restorative Rehab Aide Name Role Phone Jacquie Fair APRN, CNP Primary Care Provid er Encounter Details Date Type Department Care Team (Latest Contact Info) Description 07/16/2023 Travel Social History Tobacco Use Types Packs/Day [...] on filedocumented in this encounter Care Teams Restorative Rehab Aide Relationship Specialty Start Date End Date Jacquie Fair APRN, CNP [address] [facility], [address] [place], [place] [address] PCP - General Advanced Practice Nurse 07/11/21 documented as of this encounter
--- OUTSIDE RECORDS SUMMARY | 2024-02-27 09:41 | XMS_ITS | Encounter Summary ---
Author Organization [facility] Care Team Providers Care Mortgage Loan Coordinator Name Role Phone Jacquie Fair APRN, CNP Primary Care Provid er Encounter Details Date Type Department Care Team (Latest Contact Info) Description 01/31/2022 Travel Social History Tobacco Use Types Packs/Day [...] suspected to have Coronavirus/COVID-19? No / Unsure 01/31/2022 3:12 PM INVESTMENT BANKER documented as of this encounter Plan of Treatment Not on file documented as of this encounter Visit Diagnoses Not on filedocumented in this encounter Care Teams Mortgage Loan Coordinator Relationship Specialty Start Date End Date Jacquie Fair APRN, CNP [address] [facility], [address] [place] [address] PCP - General Advanced Practice Nurse 07/11/21 documented as of this encounter
--- OUTSIDE RECORDS SUMMARY | 2024-02-27 09:41 | XMS_ITS | Encounter Summary ---
Author Organization [facility] Care Team Providers Care Homeowner Association Manager Name Role Phone Jacquie Fair APRN, CNP Primary Care Provid er Encounter Details Date Type Department Care Team (Latest Contact Info) Description 09/04/2022 Travel Social History Tobacco Use Types Packs/Day [...] on filedocumented in this encounter Care Teams Homeowner Association Manager Relationship Specialty Start Date End Date Jacquie Fair, CORRESPONDENCE SPECIALIST, ATHLETE MANAGER [address] [facility], [address] [place] [address] PCP - General Advanced Practice Nurse 07/11/21 documented as of this encounter
--- OUTSIDE RECORDS SUMMARY | 2024-02-27 09:41 | XMS_ITS | Encounter Summary ---
Author Organization [facility] Care Team Providers Care Bench Worker Name Role Phone Jacquie Fair APRN, CNP Primary Care Provid er Encounter Details Date Type Department Care Team (Latest Contact Info) Description 06/06/2022 Travel Social History Tobacco Use Types Packs/Day [...] on filedocumented in this encounter Care Teams Bench Worker Relationship Specialty Start Date End Date Jacquie Fair, AIRLINE TICKET AGENT, SPECIAL EDUCATION KINDERGARTEN TEACHER [address] [facility], [address] [place] [address] PCP - General Advanced Practice Nurse 07/11/21 documented as of this encounter
--- OUTSIDE RECORDS SUMMARY | 2024-02-27 09:41 | XMS_ITS | Encounter Summary ---
Author Organization [facility] Address [address] [place] [address] Phone Care Team Providers Care Broadcast Traffic Coordinator Name Role Phone Jacquie Fair APRN, CNP Primary Care Provid er Encounter Details Date Type Department Care Team (Late st Contact Info) Description 08/30/2022 11:00 AM CDT Lab [facility] [address] [address] Lab, Cc [facility] Iron deficiency anemia, unspecified iron deficiency [...] Procedure Name Priority Date/Time Associated Diagnosis Comments ANCA (VASCULITIS) PROFILE, [place] [id number] Routine 07/05/2023 3:10 PM CDT SJOGRENS PANEL, SSA & SSB Routine 07/05/2023 3:10 PM CDT ANTINUCLEAR ANTIBODY (MEKA) TITER Routine 07/05/2023 3:10 PM CDT IRON W/ IRON BINDING CAPACITY [place] Routine 08/30/2022 10:24 AM CDT Iron deficiency anemia, unspecified iron deficiency anemia type LACTATE DEHYDROGENASE (LD) Routine 08/30/2022 10:24 AM CDT Iron deficiency anemia, unspecified iron deficiency anemia type FOLIC ACID (FOLATE) Routine 08/30/2022 1 0:24 AM CDT Iron deficiency anemia, unspecified iron deficiency anemia type FERRITIN Routine 08/30/2022 10:24 AM CDT Iron deficiency anemia, unspecified iron deficiency anemia type CMP (COMPREHENSIVE METABOLIC PANEL) Routine 08/30/2022 10:24 AM CDT Iron deficiency anemia, unspecified iron deficiency anemia type COMPLETE BLOOD COUNT (CBC) WITH DIFF Routine 08/30/2022 10:24 AM CDT Iron deficiency anemia, unspecified iron deficiency anemia type documented in this encounter Results * SJOGRENS PANEL, SSA & SSB (07/05/2023 3:10 PM CDT) SJOGREN'S ANTIS-A <0.2 0.0 - 0.9 [facility] SJOGREN'S ANTIS-B <0.2 0.0 - 0.9 [facility] 07/05/2023 3:10 PM CDT [facility] - 07/08/2023 1:08 PM CDT TESTING PERFORMED AT: [] [facility], [address] [place] [address], [place], [address], PHONE: [phone], CAMERA ENGINEER: ERIC VELASQUEZ, PHD us Linda Gr MD IMMUNOLOGY ORDERABLES Fi nal Result [facility] [place] [address], * (ABNORMAL) ANTINUCLEAR ANTIBODY (MEKA) TITER (07/05/2023 3:10 PM CDT) Antinuclear Antibodies, IFA POSITIVE(A ) [facility] Comment: ?NEGATIVE ?? <1:80 ?BORDERLINE ??1:80 ?POSITIVE ?? >1:80 Speckled Pattern 1:320(H) CAN [facility] Comment: DENSE FINE SPECKLED PATTERN IS NOTED. THIS PATTERN SUGGESTS THE PRESENCE OF DFS70 ANTIBODY WHICH HAS A LOW PREVALENCE IN SYSTEMIC AUTOIMMUNE RHEUMATIC DISEASES. ICAP NOMENCLATURE: AC-2,4,5,[address] [facility] Comment: PATTERN ?POTENTIAL DISEASE ASSOCIATION ?? HOMOGENEOUS ?SYSTEMIC LUPUS ERYTHEMATOSUS, DRUG INDUCED ? SYSTEMIC LUPUS ERYTHEMATOSUS, CHRONIC ? AUTOIMMUNE HEPATITIS, JUVENILE IDIOPATHIC ? ARTHRITIS ?? SPECKLED ? SJOGREN SYNDROME, SYSTEMIC LUPUS ? ERYTHEMATOSUS, SUBACUTE CUTANEOUS LUPUS, ? LUPUS, CONGENITAL HEART BLOCK, ? MIXED CONNECTIVE TISSUE DISEASE, ? SCLERODERMA-DIFFUSE, SCLERODERMA-AUTOIMMUNE ? MYOSITIS OVERLAP SYNDROME, SYSTEMIC LUPUS ? [id number] ? MYOSITIS OVERLAP SYNDROME, SYSTEMIC ? AUTOIMMUNE RHEUMATIC DISEASE, ? UNDIFFERENTIATED CONNECTIVE TISSUE DISEASE ?? NUCLEOLAR ?SYSTEMIC SCLEROSIS, SCLERODERMA-AUTOIMMUNE ? MYOSITIS OVERLAP SYNDROME, SJOGREN ? SYNDROME, RAYNAUD PHENOMENON, PULMONARY ? ARTERIAL HYPERTENSION, SYSTEMIC AUTOIMMUNE ? RHEUMATIC DISEASE, CANCER ?? CENTROMERE ? SCLERODERMA-CREST, LIMITED CUTANEOUS SSC, ? RAYNAUD'S PHENOMENON, PRIMARY BILIARY ? CHOLANGITIS ?? NUCLEAR DOT ?PRIMARY BILIARY CHOLANGITIS ?? NUCLEAR ?PRIMARY BILIARY CHOLANGITIS, AUTOIMMUNE MEMBRANE ? HEPATITIS/LIVER DISEASE, SYSTEMIC AUTOIMMUNE ? RHEUMATIC DISEASE, AUTOIMMUNE CYTOPENIAS, ? LINEAR SCLERODERMA, ANTIPHOSPHOLIPID SYNDROME ?? 07/05/2023 3:10 PM CDT Narrative [facility] MANA[facility] - 07/08/2023 8:07 AM CDT TESTING PERFORMED AT: [CB] [facility], [address] [place] [address], [address], PHONE: [phone], CAMERA ENGINEER: ERIC VELASQUEZ, PHD us Linda Gr MD IMMUNOLOGY ORDERABLES Fi nal Result [facility] MANAGER [facility] [place] [address], * ANCA (VASCULITIS) PROFILE, [place] [id number] (07/05/2023 3:10 PM CDT) ANTI-MPO ANTIBODIES <0.2 0.0 - 0.9 UNITS [facility] ANTI-PR3 ANTIBODIES <0.2 0.0 - 0.9 UNITS [facility] CYTOPLASMIC (C-ANCA) <1:20 NEG:<1:20 TITER [facility] PERINUCLEAR (P-ANCA) <1:20 NEG:<1:20 TITER [facility] Comment: THE PRESENCE OF POSITIVE FLUORESCENCE EXHIBITING P-ANCA OR C-ANCA PATTERNS ALONE IS NOT SPECIFIC FOR THE DIAGNOSIS OF DINORA'S GRANULOMATOSIS (WG) OR MICROSCOPIC POLYANGIITIS. DECISIONS ABOUT TREATMENT SHOULD NOT BE BASED SOLELY ON ANCA IFA RESULTS. ??THE INTERNATIONAL ANCA GROUP CONSENSUS RECOMMENDS FOLLOW UP TESTING OF POSITIVE SERA WITH BOTH MS- 3 AND MPO-ANCA ENZYME IMMUNOASSAYS. MANY 5% SERUM SAMPLES ARE POSITIVE ONLY BY EIA. REF. AM J CLIN PATHOL 1999;111:507-513. ATYPICAL PANCA <1:20 NEG:<1:20 TITER [facility] Comment: THE ATYPICAL PANCA PATTERN HAS BEEN OBSERVED IN A SIGNIFICANT PERCENTAGE OF PATIENTS WITH ULCERATIVE COLITIS, PRIMARY SCLEROSING CHOLANGITIS AND AUTOIMMUNE HEPATITIS. 07/05/2023 3:10 PM CDT Narrative [facility] - 07/08/2023 8:06 PM CDT TESTING PERFORMED AT: [BN] [facility] [address], [address], PHONE: [phone], CAMERA ENGINEER: LIZ CINTRON MD TESTING PERFORMED AT: [CB] [facility] [address], [address], PHONE: [phone], CAMERA ENGINEER: ERIC VELASQUEZ, PHD us Linda Gr MD LAB SEND OUTS Final Re sult CAN[facility] MANAGER [facility] [place] [address], [place] [phone] * (ABNORMAL) COMPLETE BLOOD COUNT (CBC) WITH DIFF (08/30/2022 10:24 AM CDT) WBC 3.5(L) 4.0 - 10.0 10*3/uL [facility] HGB 13.0 11.2 - 15.7 g/dL [facility] HCT 38.5 34.1 - 44.9 % [facility] PLT 247 163 - 369 10*3/uL [facility] MPV 9.7 9.4 - 12.4 fL [facility] RBC 4.22 3.93 - 5.22 10*6/uL [facility] MCV 91 79 - 95 fL [facility] MCH 30.8 25.6 - 32.2 pg [facility] MCHC 33.8 32.2 - 36.5 g/dL [facility] RDW 12.2 11.6 - 14.4 % [facility] Absolute Neutrophil Count 2,006 cells/uL [facility] Absolute Seg Count 2,006 1,440 - 6,600 cells/uL [facility] Absolute Lymph Count 1,162 760 - 4,000 cells/uL [facility] Absolute Dougherty Count 282 160 - 1,200 cells/uL [facility] Absolute Eos Count 70 0 - 300 cells/uL [facility] Segmented Neutrophils 57 36 - 66 % [facility] Lymphocytes 33 19 - 40 % [facility] Monocytes 8 4 - 12 % [facility] Eosinophils 2 0 - 3 % [facility] [place] WBC Estimate Low [facility] Platelet Estimate Normal [facility] RBC Morphology Normal [facility] Blood 08/30/2022 10:2 4 AM CDT Narrative [facility] - 08/30/2022 2:26 PM CDT Release to patient->Immediate Yaquelin Barker PAC HEMATOLOGY ORDERABLES Mary iverson Result [facility] [address] [address], * (ABNORMAL) CMP (COMPREHENSIVE METABOLIC PANEL) (08/30/2022 10:24 AM CDT) Glucose 85 70 - 105 mg/dL [facility] Blood Urea Nitrogen 12 7 - 25 mg/dL [facility] Creatinine 0.8 0.6 - 1.2 mg/dL [facility] Sodium 142 136 - 145 mEq/L [facility] Potassium 3.9 3.5 - 5.1 mEq/L [facility] Chloride 107 98 - 107 mEq/L [facility] Bicarbonate 26 21 - 31 mEq/L [facility] Total Bilirubin 0.4 0.3 - 1.0 mg/dL [facility] Alk. Phosphatase 32(L) 34 - 104 U/L [facility] Aspartate Aminotransferase 16 13 - 39 U/L [facility] Alanine Aminotransferase 11 7 - 52 U/L [facility] Total Protein 6.7 6.4 - 8.9 g/dL [facility] Albumin 4.6 3.5 - 5.7 g/dL [facility] Calcium 9.5 8.6 - 10.3 mg/dL [facility] Anion Gap 12.9 7.0 - 15.0 mEq/L [facility] Globulin 2.1 2.0 - 3.5 g/dL [facility] EGFR 97 >60 ml/min/1. 73m2 [facility] Comment: This eGFR is calculated using 2020 CKD-EPI Creatinine equation without race modifier based on the NKF-ASN task force recommendations Blood 08/30/2022 10:2 4 AM CDT Narrative [facility] - 08/30/2022 12:48 PM CDT Release to patient->Immediate IS THE PATIENT REQUIRED TO BE FASTING FOR 8 HOURS?->No Yaquelin Barker PAC CHEMISTRY ORDERABLES Final Result [facility] [address] [place] [address], * (ABNORMAL) LACTATE DEHYDROGENASE (LD) (08/30/2022 10:24 AM CDT) LDH 103(L) 140 - 271 U/L [facility] Blood 08/30/2022 10:2 4 AM CDT [facility] - 08/30/2022 12:48 PM CDT Release to patient->Immediate us Yaquelin Barker PAC CHEMISTRY ORDERABLES Final Result [facility] [address] [place] [address], * (ABNORMAL) IRON W/ IRON BINDING CAPACITY [place] (08/30/2022 10:24 AM CDT) IRON 60 50 - 212 ug/dL [facility] UIBC 250 155 - 355 ug/dL [facility] TIBC 310 261 - 478 ug/dl [facility] % Saturation 19(L) 20 - 50 % [facility] Blood 08/30/2022 10:2 4 AM CDT [facility] - 08/30/2022 12:48 PM CDT Release to patient->Immediate us Yaquelin Barker PAC LAB SEND OUTS Final Resu lt Performing Organization Address [facility]/ZIP Co de Phone Number [facility] [address] [place] [address], [place] [phone] * FERRITIN (08/30/2022 10:24 AM CDT) Ferritin 31 11 - 307 ng/mL [facility] Blood 08/30/2022 10:2 4 AM CDT [facility] - 08/31/2022 2:03 PM CDT Release to patient->Immediate us Yaquelin Barker PAC CHEMISTRY ORDERABLES Final Result [facility] MANA[facility] [place] [address], * FOLIC ACID (FOLATE) (08/30/2022 10:24 AM CDT) Folate >20.00 >=5.90 ng/mL [facility] MA[facility] Blood 08/30/2022 10:2 4 AM CDT Narrative [facility] - 08/31/2022 2:10 PM CDT Release to patient->Immediate IS THE PATIENT REQUIRED TO BE FASTING FOR 12 HOURS?->No Yaquelin Barker PAC CHEMISTRY ORDERABLES Final Result [facility] MANA[facility] [place] [address], documented in this encounter Visit Diagnoses Diagnosis Iron deficiency anemia, unspecified iron deficiency anemia type documented in this encounter Care Teams Broadcast Traffic Coordinator Relationship Specialty Start Date End Date Jacquie Fair, GUEST LAUNDRY ATTENDANT, COMMUNITY ADVOCATE [address] [facility], [address] [place] [address] PCP - General Advanced Practice Nurse 07/11/21 documented as of this encounter
--- OUTSIDE RECORDS SUMMARY | 2024-02-27 09:42 | XMS_ITS | Encounter Summary ---
Author Organization [facility] Address [address] [place] [address] Phone Care Team Providers Care Medical Apparatus Model Maker Name Role Phone Jacquie Fair APRN, CNP Primary Care Provid er Reason for Visit * Reason Comments Iron Infusion * Episode Based Medications (Routine) - Authorized Specialty Diagnoses / Procedures Referred By Nir small Referred To Contact Diagnoses Iron deficiency anemia, unspecified iron deficiency anemia type Procedures EPOETIN ROBLES RETACRIT NON-ESRD 1000 UN[address] Josh Holm DO [address] [place] [address] Phone: tel: fax: [facility] [address] [address] Phone: tel: fax: Referral ID Status Reason Start Date Expiration Date V isits Requested Visits Authorized [id number] Authorized 08/04/2021 03/10/2023 1 1 Encounter Details Date Type Department Care Team (Latest Contact Info) Description 01/25/2022 2:45 PM LINTER TENDER Clinical Support [facility] [address] [address] Nurse, Chelsy [facility] Iron deficiency anemia, unspecified iron [...] suspected to have Coronavirus/COVID-19? No / Unsure 01/25/2022 2:25 PM LINTER TENDER documented as of this encounter Progress Notes * Jennifer Morales RN - 01/25/2022 2:45 PM CST IV iron given as ordered and tolerated well. PIV flushed with 100 ml NS and pt observed for 20 minutes post iron infusion Tolerated well. Left ambulatory unaccompanied. Performance status unchanged since arrival to clinic. ER TENDER documented in this encounter Plan of Treatment Not on file documented as of this encounter Visit Diagnoses Diagnosis Iron deficiency anemia, unspecified iron deficiency anemia type- Primary documented in this encounter Administered Medications Inactive Administered Medications - up to 3 most recent administrations Medication Order MAR Action Action Date Dose Rate Site diphenhydrAMINE (BENADRYL) injection 12.5 mg 12.5 mg, Intravenous, ONCE, 1 dose, On Pam 01/25/22 at 1500Indications:Iron deficiency anemia, unspecified iron deficiency anemia type Given 01/25/2022 2:47 PM LINTER TENDER 12.5 mg famotidine (PEPCID) 20 mg in sodium chloride 0.9 % 10 mL syringe 20 mg, Intravenous, ONCE, 1 dose, On Pam 01/25/22 at 1500, Administer over 2 Minutes, Indications: Pre Med, at 300 mL/hrIndications:Pre Med Given 01/25/2022 2:44 PM LINTER TENDER 20 mg 300 mL/hr ferumoxytol (FERAHEME) 510 mg in sodium chloride 0.9 % 100 mL IVPB 510 mg, Intravenous, ONCE, 1 dose, On Pam 01/25/22 at 1500, Administer over 15 Minutes, Route IV. NS 50 ml. Infuse over 15 minutes. Must observe for 30 minutes post infusion. Patient should be in a reclined or semi-reclined position during the infusion; monitor for signs of hypersensitivity (including blood pressure and pulse).Indications:Iron deficiency anemia, unspecified iron deficiency anemia type New Bag 01/25/2022 2:55 PM LINTER TENDER 510 mg documented in this encounter Care Teams Medical Apparatus Model Maker Relationship Specialty Start Date End Date Jacquie Fair, MARKET SALES MANAGER, CREWMAN MAIN BATTLE TANK [address] [facility], [address] [place] [address] PCP - General Advanced Practice Nurse 07/11/21 documented as of this encounter
--- OUTSIDE RECORDS SUMMARY | 2024-02-27 09:42 | XMS_ITS | Encounter Summary ---
Author Organization [facility] Address [address] [place] [address] Phone Care Team Providers Care Bend Up Name Role Phone Jacquie Fair APRN, CNP Primary Care Provid er Encounter Details Date Type Department Care Team (Late st Contact Info) Description 01/16/2022 Telephone [facility] [address] [address] Yaquelin Barker, PAC Social History Tobacco Use Types Packs/Day [...] suspected to have Coronavirus/COVID-19? No / Unsure 01/16/2022 8:02 AM WEBLOGIC ADMINISTRATOR documented as of this encounter Miscellaneous Notes * Telephone Encounter - Shania Rascon RN - 01/17/2022 3:20 PM CST Images from the original note were not included. Ronit Schaffer routed conversation to Sharlene El RN 6 hours ago (8:21 AM) Jacinto Benoit, [facility] You; Josh Akhtar, DO; Raj Kuo RN; Cc Prior [facility] Treatment Pool 23 hours ago (4:07 PM) BW Per Dora El, insurance could approve Feraheme. Pasted two additional doses to our patient's existing treatment plan. Thank you, Luis Armando Message text OGIC ADMINISTRATOR * Addendum Note - Daily Michele RN - 01/16/2022 1:41 PM CSTAddended by: DAILY ANTONIO on: 01/16/2022 01:41 PM Modules accepted: Orders OGIC ADMINISTRATOR * Telephone Encounter - Daily Michele RN - 01/16/2022 1:41 PM WEBLOGIC ADMINISTRATOR Lab orders placed and Sherry in lab notified to run additional labs. OGIC ADMINISTRATOR * Telephone Encounter - Daily Michele RN - 01/16/2022 1:38 PM WEBLOGIC ADMINISTRATOR Images from the original note were not included. Yaquelin Barker, PAC Shania Rascon RN; Cc [facility] 1 minute ago (1:37 PM) LW Yes, please add on anti-parietal cells and intrinsic factor to labs drawn today. Thanks! Message text OGIC ADMINISTRATOR * Telephone Encounter - Shania Rascon RN - 01/16/2022 1:26 PM CST patient asked about Autoimmune labs? Would you like any additional labs done for patient? Thank you. Pleas update and authorize Iron infusion OGIC ADMINISTRATOR * Telephone Encounter - Shania Rascon RN - 01/16/2022 10:46 AM CST Please update Iron plan and authorize. 1st dose scheduled. Labs sent to Gynecology and Dr. John. Called and updated patient, she verbalizes understanding. She will schedule appointment with Dr. John. Rescheduled OV for 6 weeks OGIC ADMINISTRATOR OGIC ADMINISTRATOR * Telephone Encounter - Shania Rascon RN - 01/16/2022 10:11 AM CST ----- Message from JANESSA Gaytan sent at 01/16/2022 9:43 AM WEBLOGIC ADMINISTRATOR ----- Please set patient up with IV iron. Will need to change follow up appointment to return to office in 6 weeks with repeat labs. Please send labs to TRAVEL PROFESSIONAL and GI. Patient has follow up appointment with TRAVEL PROFESSIONAL scheduled. Encourage patient to get back in with GI (Dr. John) as well. OGIC ADMINISTRATOR documented in this encounter Plan of Treatment Not on file documented as of this encounter Results * INTRINS[place], [place] [address] (01/16/2022 8:08 AM WEBLOGIC ADMINISTRATOR) INTRINSIC FACTOR ABS, [place] 1.0 0.0 - 1.1 AU/ML [facility] 01/16/2022 8:08 AM WEBLOGIC ADMINISTRATOR Narrative [facility] - 01/19/2022 3:08 PM WEBLOGIC ADMINISTRATOR TESTING PERFORMED AT: [] [address], [address], PHONE: [phone], CORRESPONDENCE SCHOOL INSTRUCTOR: LIZ CINTRON MD Release to patient->Immediate us Yaquelin Barker PAC LAB SEND OUTS Final Resu lt [facility] * ANTIPARIETAL CELL [place]TIBODY [place] [address] (01/16/2022 8:08 AM WEBLOGIC ADMINISTRATOR) ANTIPARIETAL CELL ANTIBODY 8.2 0.0 - 20.0 UNITS [facility] Comment: ? NEGATIVE ?0.0 - 20.0 ? EQUIVOCAL ??20.1 - 24.9 ? POSITIVE ? >24.9 ? PARIETAL CELL ANTIBODIES ARE FOUND IN 90% OF PATIENTS ? WITH PERNICIOUS ANEMIA AND 30% OF FIRST DEGREE ? RELATIVES WITH PERNICIOUS ANEMIA. 01/16/2022 8:08 AM WEBLOGIC ADMINISTRATOR Narrative [facility] - 01/17/2022 1:08 PM WEBLOGIC ADMINISTRATOR TESTING PERFORMED AT: [] [address], [place], [address], PHONE: [phone], CORRESPONDENCE SCHOOL INSTRUCTOR: ERIC VELASQUEZ, PHD Release to patient->Immediate us Yaquelin Barker PAC LAB SEND OUTS Final Resu lt [facility] documented in this encounter Visit Diagnoses Diagnosis Iron deficiency anemia, unspecified iron deficiency anemia type Menorrhagia with regular cycle Excessive or frequent menstruation Vitamin D deficiency Unspecified vitamin D deficiency Iron deficiency anemia, unspecified iron deficiency anemia type- Primary Menorrhagia with regular cycle Excessive or frequent menstruation Vitamin D deficiency Unspecified vitamin D deficiency documented in this encounter Care Teams Bend Up Relationship Specialty Start Date End Date Jacquie Fair APRN, WAVE SOLDER OFFBEARER [address] [facility], [address] [place] [address] PCP - General Advanced Practice Nurse 07/11/21 documented as of this encounter
--- OUTSIDE RECORDS SUMMARY | 2024-02-27 09:42 | XMS_ITS | Encounter Summary ---
Author Organization [employer] Care Team Providers Care Drug Purchaser Name Role Phone Jacquie Fair APRN, CNP Primary Care Provid er Encounter Details Date Type Department Care Team (Latest Contact Info) Description 01/25/2022 Travel Social History Tobacco Use Types Packs/Day [...] Coronavirus/COVID-19? No / Unsure 01/25/2022 2:25 PM INSTRUCTIONAL SYSTEMS SPECIALIST documented as of this encounter Plan of Treatment Not on file documented as of this encounter Visit Diagnoses Not on filedocumented in this encounter Care Teams Drug Purchaser Relationship Specialty Start Date End Date Jacquie Fair APRN, CNP [address] [facility], [address] [place] [address] PCP - General Advanced Practice Nurse 07/11/21 documented as of this encounter
--- OUTSIDE RECORDS SUMMARY | 2024-02-27 09:43 | XMS_ITS | Encounter Summary ---
Author Organization [facility] Address [address] [place] [address] Phone Care Team Providers Care Admissions Representative Name Role Phone Jacquie Fair APRN, CNP Primary Care Provid er Reason for Visit * Reason Comments Follow-up Encounter Details Date Type Department Care Team (Late st Contact Info) Description 01/16/2022 8:15 AM MECHANIC MARINE ENGINE Office Visit [facility] [address] [phone] Yaquelin Barker, PAC Iron deficiency anemia, unspecified iron deficiency anemia [...] Coronavirus/COVID-19? No / Unsure 01/16/2022 8:02 AM MECHANIC MARINE ENGINE documented as of this encounter Last Filed Vital Signs Vital Sign Reading Time Taken Comments Blood Pressure 100/60 01/16/2022 8:25 AM MECHANIC MARINE ENGINE Pulse 107 01/16/2022 8:25 AM MECHANIC MARINE ENGINE Temperature 36.9 ??C (98.4 ??F) 01/16/2022 8:25 AM CS T Respiratory Rate - - Oxygen Saturation 100% 01/16/2022 8:25 AM MECHANIC MARINE ENGINE Inhaled Oxygen Concentration - - Weight 43 kg (94 lb 11.2 oz) 01/16/2022 8:25 AM MECHANIC MARINE ENGINE Height - - Body Mass Index 17.32 12/05/2021 8:45 AM CDT documented in this encounter Progress Notes * Yaquelin Barker PAC - 01/16/2022 8:15 AM CST Images from the original note were not included. Patient: Shagufta Lamar Age: 36 y.o. : 1985 Encounter Dept: [facility] Encounter Date: 01/16/2022 Care Team: Current Providers PCP: Jacquie Fair APRN, CNP Encounter Provider: Yaquelin Barker PAC Referring Provider: Jacquie Fair APRN, CNP Physician Brush Polisher: Yaquelin Barker PAC PRIMARY PHYSICIAN: Jacquie Fair APRN, CNP PATIENT IDENTIFICATION: This is a very pleasant 36-year-old female. HISTORY OF PRESENT ILLNESS: The patient presents to the office today for a follow-up visit. Historyof iron deficiency anemia likely secondary to heavy menstrual period. History of gastritis on CT scan. Denies any worsening GI related issues. Intermittent acid reflux. Slight abdominal discomfort, nothing worsening at this time. Mild alternating bowel habits. Has been seen and evaluated by Dr. John. Unfortunately, the patient had not returned to Dr. John???s office for further evaluation.Never hadan endoscopy or colonoscopy. Continues to report heavy menstrual period. Followed by gynecology. Uterine ultrasound coming up. Patient agrees to move forward with uterine ablation. DIAGNOSIS: 1. Iron deficiency. 2. Dysfunctional uterine bleeding. 3. Severe antral gastritis on CT imaging. PAST TREATMENT: 1. Colonoscopy in 2008. 2. Patient had dilatation and curettage 12/28/20. CURRENT TREATMENT: 1. GI evaluation. 2. IV iron supplementation (taking oral iron pills [...] antral gastritis on CT imaging. PLAN: 1. Labs today 2. Give IV iron if indicated 3. Strongly encourage follow up Preparation Plant Supervisor, Dr. John, for further evaluation. Patient would benefit from endoscopy or colonoscopy 4. Continue follow up with VP CONSTRUCTION TIME SPENT: REVIEW OF SYSTEMS: See HPI; [...] All lab results shown below reviewed. SUZE Avilez/leonidas Vitals: Vitals: 01/16/22 0825 BP: 100/60 BP Location: Left Arm BP Position: Sitting BP Cuff Size: Regular Pulse: 107 Temp: 98.4 ??F (36.9 ??C) TempSrc: Temporal SpO2: 100% Weight: (!) 94 lb 11.2 oz (43 kg) Body surface area is 1.37 meters squared. Body mass index is 17.32 kg/m??. Pain Score: 5 Pain Loc: Generalized (hands/shoulders/neck ) Allergies: Allergies Allergen Reactions ??? Cephalosporins Diarrhea [...] Marital status: Tobacco Use ??? Smoking status: Current Every Day Smoker Packs/day: 0.25 ??? Smokeless tobacco: Never Used Vaping Use [...] tracked chemicals: Doxorubicin, Epirubicin, Idarubicin, Daunorubicin, Mitoxantrone, Bleomycin Current Medications: Outpatient Encounter Medications as of 01/16/2022 Medication Sig Dispense Refill ??? albuterol 108 (90 Base) MCG/ACT Aerosol Solution INHALE 2 PUFFS BY MOUTH EVERY 6 HOURS NEEDED FOR WHEEZING OR SHORTNESS OF BREATH ??? Cyanocobalamin (B-12 PO) Take by mouth. ??? DULoxetine (CYMBALTA) [address] Particles ??? Ferrous Sulfate (Iron) 325 (65 Fe) MG Tablet Take by mouth. ??? Wixela Inhub 250-50 MCG/ACT AEROSOL POWDER, BREATH ACTIVATED INHALE 1 PUFF BY MOUTH INTO THE LUNGS TWICE DAILY No facility-administered encounter medications on file as of 01/16/2022. Labs: Lab on 01/16/2022 Component Date Value Ref Range Status ??? WBC 01/16/2022 4.7 4.0 - 10.0 [...] 01/16/2022 0.1 0.0 - 0.1 10*3/uL Final Cosigned by Josh Akhtar DO at 01/26/2022 6:49 PM MECHANIC MARINE ENGINE ANIC MARINE ENGINE ANIC MARINE ENGINE ANIC MARINE ENGINE documented in this encounter Plan of Treatment Scheduled Orders Name Type Priority Associated Diagnoses Orde r Schedule COMPLETE BLOOD COUNT (CBC) WITH DIFF Lab Routine Iron deficiency anemia, unspecified iron deficiency anemia type every 3 months for 3 Occurrences starting 01/16/2022 until 07/16/2023 CMP (COMPREHENSIVE METABOLIC PANEL) Lab Routine Iron deficiency anemia, unspecified iron deficiency anemia type every 3 months for 3 Occurrences starting 01/16/2022 until 07/16/2023 IRON W/ IRON BINDING CAPACITY [place] Lab Routine Iron deficiency anemia, unspecified iron deficiency anemia type every 3 months for 3 Occurrences starting 01/16/2022 until 07/16/2023 FERRITIN Lab Routine Iron deficiency anemia, unspecified iron deficiency anemia type every 3 months for 3 Occurrences starting 01/16/2022 until 07/16/2023 FOLIC ACID (FOLATE) Lab Routine Iron deficiency anemia, unspecified iron deficiency anemia type every 3 months for 3 Occurrences starting 01/16/2022 until 07/16/2023 VITAMIN B12 Lab Routine Iron deficiency anemia, unspecified iron deficiency anemia type every 3 months for 3 Occurrences starting 01/16/2022 until 07/16/2023 documented as of this encounter Visit Diagnoses Diagnosis Iron deficiency anemia, unspecified iron deficiency anemia type- Primary documented in this encounter Care Teams Admissions Representative Relationship Specialty Start Date End Date Jacquie Fair, ENVIRONMENTAL ENGINEERING MANAGER, IT TEACHER [address] [facility], [address] [place] [id number] PCP - General Advanced Practice Nurse 07/11/21 documented as of this encounter
--- OUTSIDE RECORDS SUMMARY | 2024-02-27 09:43 | XMS_ITS | Encounter Summary ---
Author Organization [facility] Address [address] [place] [address] Phone Care Team Providers Care Plans Examiner Name Role Phone Jacquie Fair APRN, CNP Primary Care Provid er Encounter Details Date Type Department Care Team (Late st Contact Info) Description 12/05/2021 8:55 AM CDT Lab [facility] [address] [phone] Lab, [facility] Iron deficiency anemia, unspecified iron deficiency anemia type; Menorrhagia with regular cycle Social History Tobacco Use Types Packs/Day Years [...] suspected to have Coronavirus/COVID-19? No / Unsure 12/05/2021 8:34 AM CDT documented as of this encounter Plan of Treatment Not on file documented as of this encounter Procedures Procedure Name Priority Date/Time Associated Diagnosis Comments IRON W/ IRON BINDING CAPACITY [place] Routine 12/05/2021 8:37 AM CDT Iron deficiency anemia, unspecified iron deficiency anemia type Menorrhagia with regular cycle CBC WITH AUTO DIFF OH Routine 12/05/2021 8:37 AM CDT VITAMIN B12 Routine 12/05/2021 8:37 AM CDT Iron deficiency anemia, unspecified iron deficiency anemia type Menorrhagia with regular cycle FOLIC ACID (FOLATE) Routine 12/05/2021 8 :37 AM CDT Iron deficiency anemia, unspecified iron deficiency anemia type Menorrhagia with regular cycle FERRITIN Routine 12/05/2021 8:37 AM CDT Iron deficiency anemia, unspecified iron deficiency anemia type Menorrhagia with regular cycle CMP (COMPREHENSIVE METABOLIC PANEL) Routine 12/05/2021 8:37 AM CDT Iron deficiency anemia, unspecified iron deficiency anemia type Menorrhagia with regular cycle documented in this encounter Results * (ABNORMAL) CBC WITH AUTO DIFF [place] (12/05/2021 8:37 AM CDT) WBC 4.3 4.0 - 10.0 10*3/uL [facility] HGB 12.1 11.2 - 15.7 g/dL [facility] HCT 34.6 34.1 - 44.9 % [facility] PLT 287 163 - 369 10*3/uL [facility] MPV 9.4 9.4 - 12.4 fL [facility] RBC 4.02 3.93 - 5.22 10*6/uL [facility] MCV 86 79 - 95 fL [facility] MCH 30.1 25.6 - 32.2 pg [facility] MCHC 35.0 32.2 - 36.5 g/dL [facility] RDW 12.4 11.6 - 14.4 % [facility] Neutrophils % 57.3 36.0 - 66.0 % [facility] Lymphocytes % 29.2 19.0 - 40.0 % [facility] Monocytes % 6.5 4.1 - 12.1 % [facility] Eosinophils % 5.6(H) 0.0 - 3.5 % [facility] Basophils % 1.2(H) 0.0 - 1.0 % [facility] Absolute Neutrophils 2.5 1.4 - 6.6 10*3/uL [facility] Absolute Lymphocytes 1.3 0.8 - 4.0 10*3/uL [facility] Absolute Monocytes 0.3 0.2 - 1.2 10*3/uL [facility] Absolute Eosinophils 0.2 0.0 - 0.4 10*3/uL [facility] Absolute Basophils 0.1 0.0 - 0.1 10*3/uL [facility] 12/05/2021 8:37 AM CDT Yaquelin Barker PAC LAB SEND OUTS Final Resu lt [facility] [address] [place] [address], * (ABNORMAL) CMP (COMPREHENSIVE METABOLIC PANEL) (12/05/2021 8:37 AM CDT) Glucose 105 70 - 105 mg/dL [facility] Blood Urea Nitrogen 10 7 - 25 mg/dL [facility] Creatinine 0.8 0.6 - 1.2 mg/dL [facility] Sodium 141 136 - 145 mEq/L [facility] Potassium 3.8 3.5 - 5.1 mEq/L [facility] Chloride 105 98 - 107 mEq/L [facility] Bicarbonate 27 21 - 31 mEq/L [facility] Total Bilirubin 0.4 0.3 - 1.0 mg/dL [facility] Alk. Phosphatase 30(L) 34 - 104 U/L [facility] Aspartate Aminotransferase 18 13 - 39 U/L [facility] Alanine Aminotransferase 17 7 - 52 U/L [facility] Total Protein 6.5 6.4 - 8.9 g/dL [facility] Albumin 4.4 3.5 - 5.7 g/dL [facility] Calcium 9.4 8.6 - 10.3 mg/dL [facility] Anion Gap 12.8 7.0 - 15.0 mEq/L [facility] Globulin 2.1 2.0 - 3.5 g/dL [facility] EGFR 98 >60 ml/min/1. 73m2 [facility] Comment: This eGFR is calculated using 2020 CKD-EPI Creatinine equation without race modifier based on the NKF-ASN task force recommendations Blood 12/05/2021 8:37 AM CDT Narrative [facility] - 12/05/2021 10:32 AM CDT IS THE PATIENT REQUIRED TO BE FASTING FOR 8 HOURS?->No Release to patient->Immediate Yaquelin Barker PAC CHEMISTRY ORDERABLES Final Result [facility] Cancer Care [address] [address], * IRON W/ IRON BINDING CAPACITY [place] (12/05/2021 8:37 AM CDT) IRON 91 50 - 212 ug/dL [facility] UIBC 214 155 - 355 ug/dL [facility] TIBC 305 261 - 478 ug/dl [facility] % Saturation 30 20 - 50 % [facility] Blood 12/05/2021 8:37 AM CDT [facility] - 12/05/2021 10:32 AM CDT Release to patient->Immediate Yaquelin Barker PAC LAB SEND OUTS Final Resu lt [facility] [address] [address], * FERRITIN (12/05/2021 8:37 AM CDT) Ferritin 13 11 - 307 ng/mL [facility] Blood 12/05/2021 8:37 AM CDT [facility] - 12/05/2021 1:56 PM CDT Release to patient->Immediate us Yaquelin Barker PAC CHEMISTRY ORDERABLES Final Result Performing Organization Address [facility]/ZIP Co de Phone Number [facility] [place] [address] [place] [address], [place] [phone] * VITAMIN B12 (12/05/2021 8:37 AM CDT) Vitamin B12 346 180 - 914 pg/mL [facility] Blood 12/05/2021 8:37 AM CDT [facility] 12/05/2021 2:06 PM CDT Release to patient->Immediate us Yaquelin Barker PAC CHEMISTRY ORDERABLES Final Result Performing Organization Address [facility] Co de Phone Number [facility] [place] [address] [place] [address], [place] [phone] * FOLIC ACID (FOLATE) (12/05/2021 8:37 AM CDT) Folate >20.00 >=5.90 ng/mL [facility] Blood 12/05/2021 8:37 AM CDT [facility] 12/05/2021 1:56 PM CDT IS THE PATIENT REQUIRED TO BE FASTING FOR 12 HOURS?->No Release to patient->Immediate us Yaquelin Barker PAC CHEMISTRY ORDERABLES Final Result Performing Organization Address City/[facility]/ZIP Co de Phone Number [facility] [place] [address] [place] [address], [place] [phone] documented in this encounter Visit Diagnoses Diagnosis Iron deficiency anemia, unspecified iron deficiency anemia type Menorrhagia with regular cycle Excessive or frequent menstruation documented in this encounter Care Teams Plans Examiner Relationship Specialty Start Date End Date Jacquie Fair, BRYANNA, SENIOR UI WEB DEVELOPER [address] [facility], [address] [place] [address] PCP - General Advanced Practice Nurse 07/11/21 documented as of this encounter
--- OUTSIDE RECORDS SUMMARY | 2024-02-27 09:43 | XMS_ITS | Encounter Summary ---
Author Organization [facility] Address [address] [place] [address] Phone Care Team Providers Care Meal Room Hand Name Role Phone Jacquie Fair APRN, TOOL ROOM GEAR MACHINE OPERATOR Primary Care Provid er Encounter Details Date Type Department Care Team (Late st Contact Info) Description 08/02/2021 3:45 PM CDT Lab [facility] [address] [place] [address] [address] [place] [address] Nurse, Cc Adrien Iron deficiency anemia, unspecified iron deficiency anemia type (Primary Dx) Social History Tobacco Use Types Packs/Day Years Used Date Smoking Tobacco: Every Day Cigarettes Smokeless Tobacco: Never Alcohol Use Standard Drinks/Week Comments Never 0 (1 standard drink = 0.6 oz pur e alcohol) PHQ-2 Answer Date Recorded Total Score - Questions 1-9 0 07/10 Comments Unknown Sex and Gender Information Value Date Recorded Sex Assigned at Not on file Legal Sex Female 2:04 PM CDT Gender Identity Not on file Sexual Orientation Not on file COVID-19 Exposure Response Date Recorded In the last 10 days, have yo u been in contact with someone who was confirmed or suspected to have Coronavirus/COVID-19? No / Unsure 08/02/2021 1:53 PM CDT documented as of this encounter Progress Notes * Jennifer Morales RN - 08/02/2021 3:45 PM CDT Blood drawn from right ac and taken to [facility] lab. Guaze and coban to site. Tolerated well. Left ambulatory unaccompanied. Performance status unchanged since arrival to clinic. documented in this encounter Plan of Treatment Not on file documented as of this encounter Visit Diagnoses Diagnosis Iron deficiency anemia, unspecified iron deficiency anemia type- Primary documented in this encounter Care Teams Meal Room Hand Relationship Specialty Start Date End Date Jacquie Fair APRN, TOOL ROOM GEAR MACHINE OPERATOR [address] [facility], [address] [place] [address] PCP - General Advanced Practice Nurse 07/11/21 documented as of this encounter
--- OUTSIDE RECORDS SUMMARY | 2024-02-27 09:43 | XMS_ITS | Encounter Summary ---
Author Organization [facility] Address [address] [place] [address] Phone Care Team Providers Care Instructor Correspondence School Name Role Phone Jacquie Fair APRN, CNP Primary Care Provid er Encounter Details Date Type Department Care Team (Late st Contact Info) Description 09/12/2021 9:35 AM CDT Lab [facility] [address] [address] Lab, Cc [facility] Iron deficiency anemia, unspecified iron deficiency anemia type; Vitamin D deficiency Social History Tobacco Use Types Packs/Day Years Used Date Smoking Tobacco: Every Day Cigarettes Smokeless Tobacco: Never Alcohol Use Standard Drinks/Week Comments Never 0 (1 standard drink = 0.6 oz pur e alcohol) PHQ-2 Answer Date Recorded Total Score - Questions 1-9 0 07/0 07/2021 Comments Unknown Sex and Gender Information Value Date Recorded Sex Assigned at Not on file Legal Sex Female 2:04 PM CDT Gender Identity Not on file Sexual Orientation Not on file COVID-19 Exposure Response Date Recorded In the last 10 days, have yo u been in contact with someone who was confirmed or suspected to have Coronavirus/COVID-19? No / Unsure 09/12/2021 8:40 AM CDT documented as of this encounter Plan of Treatment Not on file documented as of this encounter Procedures Procedure Name Priority Date/Time Associated Diagnosis Comments VITAMIN D, 25 HYDROXY TOTAL Routine 09/12/2021 9:41 AM CDT Vitamin D deficiency IRON W/ IRON BINDING CAPACITY [place] Routine 09/12/2021 9:41 AM CDT Iron deficiency anemia, unspecified iron deficiency anemia type VITAMIN B12 Routine 09/12/2021 9:41 AM CDT Iron deficiency anemia, unspecified iron deficiency anemia type FOLIC ACID (FOLATE) Routine 09/12/2021 9 :41 AM CDT Iron deficiency anemia, unspecified iron deficiency anemia type FERRITIN Routine 09/12/2021 9:41 AM CDT Iron deficiency anemia, unspecified iron deficiency anemia type CMP (COMPREHENSIVE METABOLIC PANEL) Routine 09/12/2021 9:41 AM CDT Iron deficiency anemia, unspecified iron deficiency anemia type COMPLETE BLOOD COUNT (CBC) WITH DIFF Routine 09/12/2021 9:41 AM CDT Iron deficiency anemia, unspecified iron deficiency anemia type documented in this encounter Results * VITAMIN D, 25 HYDROXY TOTAL (09/12/2021 9:41 AM CDT) [facility] 25() Vitamin D, Total 30.4 30.0 - 100.0 ng/mL [facility] Comment: The Clinical Guidelines Subcommittee of the Endocrine Society Task Force established the guidelines below for recommended serum 25(OH) vitamin D levels. ??Other clinical reference citations may show different values. Deficient ? <20 ? Insufficient ? 20 to <30 ? Sufficient ? 30 to 100 ? Upper Safety Limit ?>100 Blood 09/12/2021 9:41 AM CDT Narrative [facility] - 09/13/2021 2:23 PM CDT Release to patient->Immediate Yaquelin Barker PAC CHEMISTRY ORDERABLES Final Result Performing Organization Address [facility] Co de Phone Number [facility] [address] [address], [place] [phone] * FOLIC ACID (FOLATE) (09/12/2021 9:41 AM CDT) Folate >20.00 >=5.90 ng/mL [facility] Blood 09/12/2021 9:41 AM CDT [facility] - 09/12/2021 1:59 PM CDT IS THE PATIENT REQUIRED TO BE FASTING FOR 12 HOURS?->No Release to patient->Immediate Yaquelin Barker PAC CHEMISTRY ORDERABLES Final Result Performing Organization Address [facility] Co de Phone Number [facility] [address] [address], [place] [phone] * VITAMIN B12 (09/12/2021 9:41 AM CDT) Vitamin B12 297 180 - 914 pg/mL [facility] Blood 09/12/2021 9:41 AM CDT [facility] - 09/12/2021 1:59 PM CDT Release to patient->Immediate Yaquelin Clarkston PAC CHEMISTRY ORDERABLES Final Result Performing Organization Address [facility] Co de Phone Number [facility] [place] [place] [address], [place] [phone] * FERRITIN (09/12/2021 9:41 AM CDT) Ferritin 154 11 - 307 ng/mL [facility] Blood 09/12/2021 9:41 AM CDT Narrative [facility] - 09/12/2021 1:59 PM CDT Release to patient->Immediate Yaquelin Barker PAC CHEMISTRY ORDERABLES Final Result [facility] [address] [place] [address], [place] [phone] * IRON W/ IRON BINDING CAPACITY [place] (09/12/2021 9:41 AM CDT) IRON 89 50 - 212 ug/dL [facility] UIBC 181 155 - 355 ug/dL [facility] TIBC 270 261 - 478 ug/dl [facility] % Saturation 33 20 - 50 % [facility] Blood 09/12/2021 9:41 AM CDT Narrative [facility] - 09/12/2021 10:41 AM CDT Release to patient->Immediate Yaquelin Barker PAC LAB SEND OUTS Final Resu lt [facility] [address] [place] [address], [place] [phone] * (ABNORMAL) CMP (COMPREHENSIVE METABOLIC PANEL) (09/12/2021 9:41 AM CDT) Glucose 95 70 - 105 mg/dL [facility] Blood Urea Nitrogen 11 7 - 25 mg/dL [facility] Creatinine 0.8 0.6 - 1.2 mg/dL [facility] Sodium 140 136 - 145 mEq/L [facility] Potassium 3.9 3.5 - 5.1 mEq/L [facility] Chloride 104 98 - 107 mEq/L [facility] Bicarbonate 30 21 - 31 mEq/L [facility] Total Bilirubin 0.3 0.3 - 1.0 mg/dL [facility] Alk. Phosphatase 30(L) 34 - 104 U/L [facility] Aspartate Aminotransferase 19 13 - 39 U/L [facility] Alanine Aminotransferase 12 7 - 52 U/L [facility] Total Protein 6.7 6.4 - 8.9 g/dL [facility] Albumin 4.5 3.5 - 5.7 g/dL [facility] Calcium 9.6 8.6 - 10.3 mg/dL [facility] Anion Gap 9.9 7.0 - 15.0 mEq/L [facility] Globulin 2.2 2.0 - 3.5 g/dL [facility] EGFR 98 >60 ml/min/1. 73m2 [facility] Comment: This eGFR is calculated using 2020 CKD-EPI Creatinine equation without race modifier based on the NKF-ASN task force recommendations Blood 09/12/2021 9:41 AM CDT Narrative [facility] - 09/12/2021 10:41 AM CDT IS THE PATIENT REQUIRED TO BE FASTING FOR 8 HOURS?->No Release to patient->Immediate Yaquelin Barker PAC CHEMISTRY ORDERABLES Final Result [facility] [address] [place] [address], * (ABNORMAL) COMPLETE BLOOD COUNT (CBC) WITH DIFF (09/12/2021 9:41 AM CDT) WBC 3.7(L) 4.0 - 10.0 10*3/uL [facility] HGB 11.6 11.2 - 15.7 g/dL [facility] HCT 35.7 34.1 - 44.9 % [facility] PLT 260 163 - 369 10*3/uL [facility] MPV 9.8 9.4 - 12.4 fL [facility] RBC 4.26 3.93 - 5.22 10*6/uL [facility] MCV 84 79 - 95 fL [facility] MCH 27.2 25.6 - 32.2 pg [facility] MCHC 32.5 32.2 - 36.5 g/dL [facility] RDW 19.6(H) 11.6 - 14.4 % [facility] Absolute Neutrophil Count 1,720 cells/uL [facility] Absolute Seg Count 1,720 1,440 - 6,600 cells/uL [facility] Absolute Lymph Count 1,608 760 - 4,000 cells/uL [facility] Absolute Campbell Count 187 160 - 1,200 cells/uL [facility] Absolute Eos Count 150 0 - 300 cells/uL [facility] Absolute Baso Count 75 0 - 100 cells/uL [facility] Segmented Neutrophils 46 36 - 66 % [facility] Lymphocytes 43(H) 19 - 40 % [facility] [place] Monocytes 5 4 - 12 % [facility] Eosinophils 4(H) 0 - 3 % [facility] Basophils 2(H) 0 - 1 % [facility] WBC Estimate Low [facility] Platelet Estimate Normal [facility] RBC Morphology Abnormal [facility] Anisocytosis 1+ [facility] Blood 09/12/2021 9:41 AM CDT Narrative [facility] - 09/12/2021 11:28 AM CDT Release to patient->Immediate Yaquelin Barker [facility] HEMATOLOGY ORDERABLES Mary iverson Result Performing Organization Address City/State/[facility] Co de Phone Number [facility] [address] [place] [address], documented in this encounter Visit Diagnoses Diagnosis Iron deficiency anemia, unspecified iron deficiency anemia type Vitamin D deficiency Unspecified vitamin D deficiency documented in this encounter Care Teams Instructor Correspondence School Relationship Specialty Start Date End Date Jacquie Fair, OIL PAINTER, OIL TREATER [address] [facility], [address] [place] [address] PCP - General Advanced Practice Nurse 07/11/21 documented as of this encounter
--- OUTSIDE RECORDS SUMMARY | 2024-02-27 09:43 | XMS_ITS | Encounter Summary ---
Author Organization [facility] Address [address] [place] [address] Phone Care Team Providers Care Stock Preparation Operator Name Role Phone Jacquie Fair APRN, CNP Primary Care Provid er Reason for Visit * Reason Comments Iron Infusion * Episode Based Medications (Routine) - Authorized Specialty Diagnoses / Procedures Referred By Nri small Referred To Contact Diagnoses Iron deficiency anemia, unspecified iron deficiency anemia type Procedures EPOETIN ROBLES RETACRIT NON-ESRD [address] Josh Holm DO [address] [place] [phone] Phone: tel: fax: [facility] [address] [address] Phone: tel: fax: Referral ID Status Reason Start Date Expiration Date V isits Requested Visits Authorized [id number] Authorized 08/04/2021 03/10/2023 1 1 Encounter Details Date Type Department Care Team (Latest Contact Info) Description 08/11/2021 1:00 PM CDT Clinical Support [facility] [address] [address] [facility] Iron deficiency anemia, unspecified iron deficiency anemia [...] suspected to have Coronavirus/COVID-19? No / Unsure 08/11/2021 12:46 PM CDT documented as of this encounter Progress Notes * Kiara Cunningham RN - 08/11/2021 1:00 PM CDT Teaching done, written information given, and consent signed for Feraheme. Patient was given written drug information (ONS/HOPA/NCODA/ACC approved). Side Effects Instructed on side effects including but not limited to hypersensitivity reaction, diarrhea, constipation, swelling, hypotension, nausea, and dizziness. Discussed how to manage these side effects andwhen to notify the physician/clinic. Supportive Meds Instructed on all other supportive medications ordered as follows: pepcid/benadryl pre-medication. Needs Assessment Nurse assessed patient's learning needs throughout session. Patient's needs, abilities and readiness to learn addressed including preferences to verbal and written information. Questions answered. Consent Informed consent presented, reviewed and signed. Total face to face time spent teaching was 15 minutes. Patient tolerated Feraheme infusion well with no complaints. IV removed and intact. Patient's performance status has not changed since arrival to clinic. Patient discharged per ambulation. documented in this encounter Plan of Treatment [...] 12.5 mg, Intravenous, ONCE, 1 dose, On Sat08/11/21 at 1330Indications:Iron deficiency anemia, unspecified iron deficiency anemia type Given 08/11/2021 1:10 PM CDT 12.5 mg famotidine (PEPCID) 20 mg in sodium chloride 0.9 % 10 mL syringe 20 mg, Intravenous, ONCE, 1 dose, On Sat08/11/21 at 1330, Administer over 2 Minutes, Indications: Pre Med, at 300 mL/hrIndications:Pre Med Given 08/11/2021 1:07 PM CDT 20 mg 300 mL/hr ferumoxytol (FERAHEME) 510 mg in sodium chloride 0.9 % 100 mL IVPB 510 mg, Intravenous, ONCE, 1 dose, On Sat08/11/21 at 1330, Administer over 15 Minutes, Route IV. NS 50 ml. Infuse over 15 minutes. Must observe for 30 minutes post infusion. Patient should be in a reclined or semi-reclined position during the infusion; monitor for signs of hypersensitivity (including blood pressure and pulse).Indications:Iron deficiency anemia, unspecified iron deficiency anemia type New Bag 08/11/2021 1:25 PM CDT 510 mg documented in this encounter Care Teams Stock Preparation Operator Relationship Specialty Start Date End Date Jacquie Fair APRN, DIESEL TECHNOLOGY INSTRUCTOR [address] [facility], [address] [place] [address] PCP - General Advanced Practice Nurse 07/11/21 documented as of this encounter
--- OUTSIDE RECORDS SUMMARY | 2024-02-27 09:43 | XMS_ITS | Encounter Summary ---
Author Organization [facility] Care Team Providers Care Maid Cleaning Cooking Name Role Phone Jacquie Fair APRN, CNP [...] to have Coronavirus/COVID-19? No / Unsure 10/17/2021 9:33 AM CDT documented as of this encounter Plan of Treatment Not on file documented as of this encounter Visit Diagnoses Not on filedocumented in this encounter Care Teams Maid Cleaning Cooking Relationship Specialty Start Date End Date Jacquie Fair APRN, CNP [address] [facility], [address] [place] [address] PCP - General Advanced Practice Nurse 07/11/21 documented as of this encounter
--- OUTSIDE RECORDS SUMMARY | 2024-02-27 09:43 | XMS_ITS | Encounter Summary ---
Author Organization [facility] Address [address] [place] [address] Phone Care Team Providers Care Nuclear Plant Equipment Operator Name Role Phone Jaqcuie Fair APRN, CNP Primary Care Provid er Encounter Details Date Type Department Care Team (Late st Contact Info) Description 01/16/2022 8:05 AM PANTOGRAPH TRANSFERRER Lab [facility] [address] [address] Lab, Cc [facility] Iron deficiency anemia, unspecified iron deficiency anemia type; Menorrhagia with regular cycle; Vitamin D deficiency Social History Tobacco Use [...] Coronavirus/COVID-19? No / Unsure 01/16/2022 8:02 AM PANTOGRAPH TRANSFERRER documented as of this encounter Plan of Treatment Not on file documented as of this encounter Procedures Procedure Name Priority Date/Time Associated Diagnosis Comments IRON W/ IRON BINDING CAPACITY [place] Routine 01/16/2022 8:08 AM PANTOGRAPH TRANSFERRER Iron deficiency anemia, unspecified iron deficiency anemia type Menorrhagia with regular cycle CBC WITH AUTO DIFF [place] Routine 01/16/2022 8:08 AM PANTOGRAPH TRANSFERRER INTRINSIC FACTOR [place], [place] [address] Routine 01/16/2022 8:08 AM PANTOGRAPH TRANSFERRER Iron deficiency anemia, unspecified iron deficiency anemia type Menorrhagia with regular cycle Vitamin D deficiency [place] [address] Routine 01/16/2022 8:08 AM PANTOGRAPH TRANSFERRER Iron deficiency anemia, unspecified iron deficiency anemia type Menorrhagia with regular cycle Vitamin D deficiency FOLIC ACID (FOLATE) Routine 01/16/2022 8 :08 AM PANTOGRAPH TRANSFERRER Iron deficiency anemia, unspecified iron deficiency anemia type Menorrhagia with regular cycle FERRITIN Routine 01/16/2022 8:08 AM PANTOGRAPH TRANSFERRER Iron deficiency anemia, unspecified iron deficiency anemia type Menorrhagia with regular cycle CMP (COMPREHENSIVE METABOLIC PANEL) Routine 01/16/2022 8:08 AM PANTOGRAPH TRANSFERRER Iron deficiency anemia, unspecified iron deficiency anemia type Menorrhagia with regular cycle documented in this encounter Results * [place]TIPARI[place]AL [place]TIBODY [place] [address] (01/16/2022 8:08 AM PANTOGRAPH TRANSFERRER) [facility] ANTIPARIETAL CELL ANTIBODY 8.2 0.0 - 20.0 UNITS [facility] Comment: ? NEGATIVE ?0.0 - 20.0 ? EQUIVOCAL ??20.1 - 24.9 ? POSITIVE ? >24.9 ? PARIETAL CELL ANTIBODIES ARE FOUND IN 90% OF PATIENTS ? WITH PERNICIOUS ANEMIA AND 30% OF FIRST DEGREE ? RELATIVES WITH PERNICIOUS ANEMIA. 01/16/2022 8:08 AM PANTOGRAPH TRANSFERRER Narrative [facility] - 01/17/2022 1:08 PM PANTOGRAPH TRANSFERRER TESTING PERFORMED AT: [CB] [facility], [address] [place], [address], PHONE: [phone], STEEL HANGER: ERIC VELASQUEZ, PHD Release to patient->Immediate [facility] PAC LAB SEND OUTS Final Resu lt Performing Organization Address City/[facility]/ZIP Co de Phone Number [facility] * INTRINSIC FACTOR ABS, [place] [address] (01/16/2022 8:08 AM PANTOGRAPH TRANSFERRER) Pathologist [facility] INTRINSIC FACTOR ABS, [place] 1.0 0.0 - 1.1 AU/ML [facility] 01/16/2022 8:08 AM PANTOGRAPH TRANSFERRER Narrative [facility] - 01/19/2022 3:08 PM PANTOGRAPH TRANSFERRER TESTING PERFORMED AT: [] [facility], [address], PHONE: [phone], STEEL HANGER: LIZ CINTRON MD Release to patient->Immediate Yaquelin Barker PAC LAB SEND OUTS Final Resu lt [facility] * (ABNORMAL) CBC WITH AUTO DIFF [place] (01/16/2022 8:08 AM PANTOGRAPH TRANSFERRER) WBC 4.7 4.0 - 10.0 10*3/uL [facility] HGB 11.6 11.2 - 15.7 g/dL [facility] HCT 35.9 34.1 - 44.9 % [facility] PLT 279 163 - 369 10*3/uL [facility] MPV 9.6 9.4 - 12.4 fL [facility] RBC 4.02 3.93 - 5.22 10*6/uL [facility] MCV 89 79 - 95 fL [facility] MCH 28.9 25.6 - 32.2 pg [facility] MCHC 32.3 32.2 - 36.5 g/dL [facility] RDW 11.8 11.6 - 14.4 % [facility] Neutrophils % 54.0 36.0 - 66.0 % [facility] Lymphocytes % 34.2 19.0 - 40.0 % [facility] Monocytes % 6.2 4.1 - 12.1 % [facility] Eosinophils % 4.1(H) 0.0 - 3.5 % [facility] Basophils % 1.1(H) 0.0 - 1.0 % [facility] Absolute Neutrophils 2.5 1.4 - 6.6 10*3/uL [facility] Absolute Lymphocytes 1.6 0.8 - 4.0 10*3/uL [facility] Absolute Monocytes 0.3 0.2 - 1.2 10*3/uL [facility] Absolute Eosinophils 0.2 0.0 - 0.4 10*3/uL [facility] Absolute Basophils 0.1 0.0 - 0.1 10*3/uL [facility] 01/16/2022 8:08 AM PANTOGRAPH TRANSFERRER us Yaquelin Barker PAC LAB SEND OUTS Final Resu lt [facility] [address] [place] [address], * (ABNORMAL) CMP (COMPREHENSIVE METABOLIC PANEL) (01/16/2022 8:08 AM PANTOGRAPH TRANSFERRER) Glucose 130(H) 70 - 105 mg/dL [facility] Blood Urea Nitrogen 6(L) 7 - 25 mg/dL [facility] Creatinine 0.9 0.6 - 1.2 mg/dL [facility] Sodium 141 136 - 145 mEq/L [facility] Potassium 3.9 3.5 - 5.1 mEq/L [facility] Chloride 106 98 - 107 mEq/L [facility] Bicarbonate 27 21 - 31 mEq/L [facility] Total Bilirubin 0.3 0.3 - 1.0 mg/dL [facility] Alk. Phosphatase 35 34 - 104 U/L [facility] Aspartate Aminotransferase 14 13 - 39 U/L [facility] Alanine Aminotransferase 7 7 - 52 U/L [facility] Total Protein 6.3(L) 6.4 - 8.9 g/dL [facility] Albumin 4.1 3.5 - 5.7 g/dL [facility] Calcium 9.2 8.6 - 10.3 mg/dL [facility] Anion Gap 11.9 7.0 - 15.0 mEq/L [facility] Globulin 2.2 2.0 - 3.5 g/dL [facility] EGFR 85 >60 ml/min/1. 73m2 [facility] Comment: This eGFR is calculated using 2020 CKD-EPI Creatinine equation without race modifier based on the NKF-ASN task force recommendations Blood 01/16/2022 8:08 AM PANTOGRAPH TRANSFERRER Narrative [facility] - 01/16/2022 8:57 AM PANTOGRAPH TRANSFERRER IS THE PATIENT REQUIRED TO BE FASTING FOR 8 HOURS?->No Release to patient->Immediate Yaquelin Barker PAC CHEMISTRY ORDERABLES Final Result [facility] [address] [place] [address], * (ABNORMAL) IRON W/ IRON BINDING CAPACITY [place] (01/16/2022 8:08 AM PANTOGRAPH TRANSFERRER) IRON 21(L) 50 - 212 ug/dL [facility] UIBC 318 155 - 355 ug/dL [facility] TIBC 339 261 - 478 ug/dl [facility] % Saturation 6(L) 20 - 50 % [facility] Blood 01/16/2022 8:08 AM PANTOGRAPH TRANSFERRER Dev [facility] - 01/16/2022 8:57 AM PANTOGRAPH TRANSFERRER Release to patient->Immediate us Yaquelin Barker PAC LAB SEND OUTS Final Resu lt Performing Organization Address City/[facility]/ZIP Co de Phone Number [facility] [address] [place] [address], [place] [phone] * (ABNORMAL) FERRITIN (01/16/2022 8:08 AM PANTOGRAPH TRANSFERRER) Ferritin 3(L) 11 - 307 ng/mL [facility] Blood 01/16/2022 8:08 AM PANTOGRAPH TRANSFERRER Dev [facility] - 01/16/2022 3:15 PM PANTOGRAPH TRANSFERRER Release to patient->Immediate us Yaquelin Barker PAC CHEMISTRY ORDERABLES Final Result Performing Organization Address [facility] Co de Phone Number [facility] [address] [place] [address], [place] [phone] * FOLIC ACID (FOLATE) (01/16/2022 8:08 AM PANTOGRAPH TRANSFERRER) Folate >20.00 >=5.90 ng/mL [facility] Blood 01/16/2022 8:08 AM PANTOGRAPH TRANSFERRER Dev [facility] - 01/16/2022 3:15 PM PANTOGRAPH TRANSFERRER IS THE PATIENT REQUIRED TO BE FASTING FOR 12 HOURS?->No Release to patient->Immediate us Yaquelin Barker PAC CHEMISTRY ORDERABLES Final Result Performing Organization Address City/[facility]/ZIP Co de Phone Number [facility] [address] [place] [address], [place] [phone] documented in this encounter Visit Diagnoses Diagnosis Iron deficiency anemia, unspecified iron deficiency anemia type Menorrhagia with regular cycle Excessive or frequent menstruation Vitamin D deficiency Unspecified vitamin D deficiency documented in this encounter Care Teams Nuclear Plant Equipment Operator Relationship Specialty Start Date End Date Jacquie Fair APRN, LOOKBACK COORDINATOR [address] [facility], [address] [place] [address] PCP - General Advanced Practice Nurse 07/11/21 documented as of this encounter
--- OUTSIDE RECORDS SUMMARY | 2024-02-27 09:43 | XMS_ITS | Encounter Summary ---
Author Organization [employer] Care Team Providers Care Button Puncher Name Role Phone Jacquie Fair APRN, CNP Primary Care Provid er Encounter Details Date Type Department Care Team (Latest Contact Info) Description 12/05/2021 Travel Social History Tobacco Use Types Packs/Day [...] on filedocumented in this encounter Care Teams Button Puncher Relationship Specialty Start Date End Date Jacquie Fair APRN, CNP [address] [facility], [address] [place] [address] PCP - General Advanced Practice Nurse 07/11/21 documented as of this encounter
--- OUTSIDE RECORDS SUMMARY | 2024-02-27 09:43 | XMS_ITS | Encounter Summary ---
Author Organization [facility] Address [address] [place] [address] Phone Care Team Providers Care Electrolytic De Scaler Name Role Phone Jacquie Fair APRN, CNP Primary Care Provid er Encounter Details Date Type Department Care Team (Late st Contact Info) Description 12/05/2021 Telephone [facility] [address] [address] Yaquelin Barker, PAC Social History [...] encounter Miscellaneous Notes * Telephone Encounter - Jelena Michele RN - 12/05/2021 2:01 PM CDT Gave pt lab results and notified her that iron looks good. Pt voices understanding and confirmed her 6 wk f/u. * Telephone Encounter - Yaquelin Barker PAC - 12/05/2021 1:59 PM CDT Please let patient know her iron labs look good. Ok to give lab results. Will see her back in 6 weeks documented in this encounter Plan of Treatment Not on file documented as of this encounter Visit Diagnoses Not on filedocumented in this encounter Care Teams Electrolytic De Scaler Relationship Specialty Start Date End Date Jacquie Fair APRN, KNOBBER [address] [facility], [address] [place] [address] PCP - General Advanced Practice Nurse 07/11/21 documented as of this encounter
--- OUTSIDE RECORDS SUMMARY | 2024-02-27 09:43 | XMS_ITS | Encounter Summary ---
Author Organization [facility] Address [address] [place] [address] Phone Care Team Providers Care Lacquer Machine Feeder Name Role Phone Jacquie Fair APRN, CNP Primary Care Provid er Reason for Visit * Reason Comments Follow-up Encounter Details Date Type Department Care Team (Late st Contact Info) Description 12/05/2021 9:00 AM CDT Office Visit [facility] [address] [id number] Yaquelin Barker, PAC Iron deficiency anemia, unspecified iron deficiency anemia type (Primary Dx); Menorrhagia with regular cycle Social History Tobacco [...] Sign Reading Time Taken Comments Blood Pressure 100/58 12/05/2021 8:45 AM CDT Pulse 103 12/05/2021 8:45 AM CDT Temperature 36.9 ??C (98.4 ??F) 12/05/2021 8:45 AM CD T Respiratory Rate 20 12/05/2021 8:45 AM CDT Oxygen Saturation 98% 12/05/2021 8:45 AM CDT Inhaled Oxygen Concentration - - Weight 43.4 kg (95 lb 11.2 oz) 12/05/2021 8:45 A M CDT Height 157.5 cm (5' 2 ) 12/05/2021 8:45 AM CDT Body Mass Index 17.5 12/05/2021 8:45 AM CDT documented in this encounter Progress Notes * Yaquelin Barker PAC - 12/05/2021 9:00 AM CDT Images from the original note were not included. Patient: Shagufta Lamar Age: 36 y.o. : 1985 Encounter Dept: MED [facility] Encounter Date: 12/05/2021 Care Team: Current Providers PCP: Jacquie Fair APRN, CNP Encounter Provider: Yaquelin Barker PAC Referring Provider: Jacquie Fair APRN, CNP Physician Cuff Folder: Yaquelin Barker PAC PRIMARY PHYSICIAN: Jacquie Fair APRN, CNP PATIENT IDENTIFICATION: This is a very pleasant 36-year-old female. HISTORY OF PRESENT ILLNESS: The patient presents to the office today for a follow-up visit. [facility]. Repeat uterine ultrasound scheduled. She continues to report heavy and painful menstrual periods with quarter-size clots. She is reporting postnasal drip and productive cough. Phlegm is green to yellow in color. Denies shortness of breath. COVID negative per patient. Denies fevers, chills. She does report night sweats, nothing worsening at this time. No particular changes to her bowels. DIAGNOSIS: 1. Iron deficiency. 2. Dysfunctional uterine [...] on CT imaging. PLAN: 1. Repeat labs 2. Give IV iron if indicated. 3. RTC 6 weeks 4. Encouraged her to follow up with her primary care provider for upper respiratory symptoms Dr. Akhtar was present in the office. TIME SPENT: REVIEW OF SYSTEMS: See HPI; otherwise, 12-point review of systems is negative. PHYSICAL EXAM: GENERAL: Patient is awake, alert and oriented x3. HEENT: Normocephalic, atraumatic, PERRLA, EOMI. Sclerae nonicteric, conjunctivae normal. Nasopharyrynx negative. Tongue normal, uvula midline, no thrush, [...] results shown below reviewed. Josh Akhtar, DO, FACGEORGINA Barker PA-C LW/mgo Vitals: Vitals: 12/05/21 0845 BP: 100/58 BP Location: Left Arm BP Position: Sitting BP Cuff Size: Regular Pulse: 103 Resp: 20 Temp: 98.4 ??F (36.9 ??C) TempSrc: Temporal SpO2: 98% Weight: (!) 95 lb 11.2 oz (43.4 kg) Height: 5' 2 (1.575 m) Body surface area is 1.38 meters squared. Body mass index is 17.5 kg/m??. Pain Score: 0 - No pain [...] Current Medications: Outpatient Encounter Medications as of 12/05/2021 Medication Sig Dispense Refill ??? albuterol 108 (90 Base) MCG/ACT Aerosol Solution INHALE 2 PUFFS BY MOUTH EVERY 6 HOURS NEEDED FOR WHEEZING OR SHORTNESS OF BREATH ??? Cyanocobalamin (B-12 PO) Take by mouth. ??? DULoxetine (CYMBALTA) [address] Particles ??? Ferrous Sulfate (Iron) 325 (65 Fe) MG Tablet Take by mouth. No facility-administered encounter medications on file as of 12/05/2021. Labs: Lab on 12/05/2021 Component Date Value Ref Range Status ??? WBC 12/05/2021 4.3 4.0 - 10.0 10*3/uL Final ??? HGB 12/05/2021 12.1 11.2 - 15.7 g/dL Final ??? HCT 12/05/2021 34.6 34.1 - 44.9 % Final ??? PLT 12/05/2021 287 163 - 369 10*3/uL Final ??? MPV 12/05/2021 9.4 9.4 - 12.4 fL Final ??? RBC 12/05/2021 4.02 3.93 - 5.22 10*6/uL Final ??? MCV 12/05/2021 86 79 - 95 fL Final ??? MCH 12/05/2021 30.1 25.6 - 32.2 pg Final ??? MCHC 12/05/2021 35.0 32.2 - 36.5 g/dL Final ??? RDW 12/05/2021 12.4 11.6 - 14.4 % Final ??? Neutrophils % 12/05/2021 57.3 36.0 - 66.0 % Final ??? Lymphocytes % 12/05/2021 29.2 19.0 - 40.0 % Final ??? Monocytes % 12/05/2021 6.5 4.1 - 12.1 % Final ??? Eosinophils % 12/05/2021 5.6 (A) 0.0 - 3.5 % Final ??? Basophils % 12/05/2021 1.2 (A) 0.0 - 1.0 % Final ??? Absolute Neutrophils 12/05/2021 2.5 1.4 - 6.6 10*3/uL Final ??? Absolute Lymphocytes 12/05/2021 1.3 0.8 - 4.0 10*3/uL Final ??? Absolute Monocytes 12/05/2021 0.3 0.2 - 1.2 10*3/uL Final ??? Absolute Eosinophils 12/05/2021 0.2 0.0 - 0.4 10*3/uL Final ??? Absolute Basophils 12/05/2021 0.1 0.0 - 0.1 10*3/uL Final Cosigned by Josh Akhtar DO at 12/07/2021 10:02 AM CDT documented in this encounter Plan of Treatment Not on file documented as of this encounter Results * FOLIC ACID (FOLATE) (01/16/2022 8:08 AM SAGGER FILLER) Folate >20.00 >=5.90 ng/mL [facility] Blood 01/16/2022 8:08 AM SAGGER FILLER Narrative [facility] - 01/16/2022 3:15 PM SAGGER FILLER IS THE PATIENT REQUIRED TO BE FASTING FOR 12 HOURS?->No Release to patient->Immediate Yaquelin Barker PAC CHEMISTRY ORDERABLES Final Result Performing Organization Address City/[facility]/ZIP Co de Phone Number [facility] [address] [place] [address], * (ABNORMAL) FERRITIN (01/16/2022 8:08 AM SAGGER FILLER) Ferritin 3(L) 11 - 307 ng/mL [facility] Blood 01/16/2022 8:08 AM SAGGER FILLER Narrative [facility] - 01/16/2022 3:15 PM SAGGER FILLER Release to patient->Immediate Yaquelin Barker PAC CHEMISTRY ORDERABLES Final Result [facility] [address] [place] [address], [place] [phone] * (ABNORMAL) IRON W/ IRON BINDING CAPACITY [place] (01/16/2022 8:08 AM SAGGER FILLER) IRON 21(L) 50 - 212 ug/dL [facility] UIBC 318 155 - 355 ug/dL [facility] TIBC 339 261 - 478 ug/dl [facility] % Saturation 6(L) 20 - 50 % [facility] Blood 01/16/2022 8:08 AM SAGGER FILLER Narrative [facility] - 01/16/2022 8:57 AM SAGGER FILLER Release to patient->Immediate Yaquelin Barker PAC LAB SEND OUTS Final Resu lt [facility] [address] [place] [address], * (ABNORMAL) CMP (COMPREHENSIVE METABOLIC PANEL) (01/16/2022 8:08 AM SAGGER FILLER) Glucose 130(H) 70 - 105 mg/dL [facility] Blood Urea Nitrogen 6(L) 7 - 25 mg/dL [facility] Creatinine 0.9 0.6 - 1.2 mg/dL [facility] Sodium 141 136 - 145 mEq/L [facility] Potassium 3.9 3.5 - 5.1 mEq/L [facility] Chloride 106 98 - 107 mEq/L [facility] Bicarbonate 27 21 - 31 mEq/L [facility] Total Bilirubin 0.3 0.3 - 1.0 mg/dL [facility] Alk. Phosphatase 35 34 - 104 U/L [facility] Aspartate Aminotransferase 14 13 - 39 U/L [facility] Alanine Aminotransferase 7 7 - 52 U/L [facility] Total Protein 6.3(L) 6.4 - 8.9 g/dL [facility] Albumin 4.1 3.5 - 5.7 g/dL [facility] Calcium 9.2 8.6 - 10.3 mg/dL [facility] Anion Gap 11.9 7.0 - 15.0 mEq/L [facility] Globulin 2.2 2.0 - 3.5 g/dL [facility] EGFR 85 >60 ml/min/1. 73m2 [facility] Comment: This eGFR is calculated using 2020 CKD-EPI Creatinine equation without race modifier based on the NKF-ASN task force recommendations Blood 01/16/2022 8:08 AM SAGGER FILLER Narrative [facility] - 01/16/2022 8:57 AM SAGGER FILLER IS THE PATIENT REQUIRED TO BE FASTING FOR 8 HOURS?->No Release to patient->Immediate Yaquelin Barker PAC CHEMISTRY ORDERABLES Final Result [facility] [place] [address], documented in this encounter Visit Diagnoses Diagnosis Iron deficiency anemia, unspecified iron deficiency anemia type- Primary Menorrhagia with regular cycle Excessive or frequent menstruation Iron deficiency anemia, unspecified iron deficiency anemia type Menorrhagia with regular cycle Excessive or frequent menstruation Vitamin D deficiency Unspecified vitamin D deficiency documented in this encounter Care Teams Lacquer Machine Feeder Relationship Specialty Start Date End Date Jacquie Fair, SOCIAL SERVICE WORKER, COMMUNITY RELATIONS DIRECTOR [address] [facility], [address] [place] [address] PCP - General Advanced Practice Nurse 07/11/21 documented as of this encounter
--- OUTSIDE RECORDS SUMMARY | 2024-02-27 09:43 | XMS_ITS | Encounter Summary ---
Author Organization [employer] Care Team Providers Care Mounter Sousaphones Name Role Phone Jacquie Fair APRN, CNP Primary Care Provid er Encounter Details Date Type Department Care Team (Latest Contact Info) Description 08/02/2021 Travel Social History Tobacco Use Types Packs/Day [...] on filedocumented in this encounter Care Teams Mounter Sousaphones Relationship Specialty Start Date End Date Jacquie Fair APRN, CNP [address] [facility], [address] [place] [address] PCP - General Advanced Practice Nurse 07/11/21 documented as of this encounter
--- OUTSIDE RECORDS SUMMARY | 2024-02-27 09:43 | XMS_ITS | Encounter Summary ---
Author Organization [employer] Care Team Providers Care Zmt Operator Name Role Phone Jacquie Fair APRN, CNP Primary Care Provid er Encounter Details Date Type Department Care Team (Latest Contact Info) Description 09/12/2021 Travel Social History Tobacco Use Types Packs/Day [...] on filedocumented in this encounter Care Teams Zmt Operator Relationship Specialty Start Date End Date Jacquie Fair APRN, CNP [address] [facility], [address] [place] [address] PCP - General Advanced Practice Nurse 07/11/21 documented as of this encounter
--- OUTSIDE RECORDS SUMMARY | 2024-02-27 09:43 | XMS_ITS | Encounter Summary ---
Author Organization [facility] Address [address] [place] [address] Phone Care Team Providers Care Stiff Leg Operator Name Role Phone Jacquie Fair APRN, CNP Primary Care Provid er Encounter Details Date Type Department Care Team (Late st Contact Info) Description 10/17/2021 10:35 AM CDT Lab [facility] [address] [address] Lab, [facility] Iron deficiency anemia, unspecified iron [...] IRON W/ IRON BINDING CAPACITY [place] Routine 10/17/2021 9:35 AM CDT Iron deficiency anemia, unspecified iron deficiency anemia type Vitamin D deficiency VITAMIN B12 Routine 10/17/2021 9:35 AM CDT Iron deficiency anemia, unspecified iron deficiency anemia type Vitamin D deficiency FOLIC ACID (FOLATE) Routine 10/17/2021 9 :35 AM CDT Iron deficiency anemia, unspecified iron deficiency anemia type Vitamin D deficiency FERRITIN Routine 10/17/2021 9:35 AM CDT Iron deficiency anemia, unspecified iron deficiency anemia type Vitamin D deficiency CMP (COMPREHENSIVE METABOLIC PANEL) Routine 10/17/2021 9:35 AM CDT Iron deficiency anemia, unspecified iron deficiency anemia type Vitamin D deficiency COMPLETE BLOOD COUNT (CBC) WITH DIFF Routine 10/17/2021 9:35 AM CDT Iron deficiency anemia, unspecified iron deficiency anemia type Vitamin D deficiency documented in this encounter Results * (ABNORMAL) COMPLETE BLOOD COUNT (CBC) WITH DIFF (10/17/2021 9:35 AM CDT) WBC 3.9(L) 4.0 - 10.0 10*3/uL [facility] HGB 12.2 11.2 - 15.7 g/dL [facility] HCT 36.4 34.1 - 44.9 % [facility] PLT 279 163 - 369 10*3/uL [facility] MPV 9.6 9.4 - 12.4 fL [facility] RBC 4.24 3.93 - 5.22 10*6/uL [facility] MCV 86 79 - 95 fL [facility] MCH 28.8 25.6 - 32.2 pg [facility] MCHC 33.5 32.2 - 36.5 g/dL [facility] RDW 15.8(H) 11.6 - 14.4 % [facility] Absolute Neutrophil Count 1,896 cells/uL [facility] Absolute Seg Count 1,896 1,440 - 6,600 cells/uL [facility] Absolute Lymph Count 1,509 760 - 4,000 cells/uL [facility] Absolute Bureau Count 232 160 - 1,200 cells/uL [facility] Absolute Eos Count 194 0 - 300 cells/uL [facility] Absolute Baso Count 39 0 - 100 cells/uL [facility] Segmented Neutrophils 49 36 - 66 % [facility] Lymphocytes 39 19 - 40 % [facility] Monocytes 6 4 - 12 % [facility] Eosinophils 5(H) 0 - 3 % [facility] Basophils 1 0 - 1 % [facility] WBC Estimate Low [facility] Platelet Estimate Normal [facility] RBC Morphology Abnormal [facility] Anisocytosis 1+ [facility] Blood 10/17/2021 9:35 AM CDT Narrative [facility] - 10/17/2021 1:04 PM CDT Release to patient->Immediate Yaquelin Bakrer [facility] HEMATOLOGY ORDERABLES Mary iverson Result Performing Organization Address City/State/[facility] Co de Phone Number [facility] [address] [place] [address], * CMP (COMPREHENSIVE METABOLIC PANEL) (10/17/2021 9:35 AM CDT) Glucose 82 70 - 105 mg/dL [facility] Blood Urea Nitrogen 10 7 - 25 mg/dL [facility] Creatinine 0.7 0.6 - 1.2 mg/dL [facility] Sodium 139 136 - 145 mEq/L [facility] Potassium 3.9 3.5 - 5.1 mEq/L [facility] Chloride 104 98 - 107 mEq/L [facility] Bicarbonate 30 21 - 31 mEq/L [facility] Total Bilirubin 0.4 0.3 - 1.0 mg/dL [facility] Alk. Phosphatase 34 34 - 104 U/L [facility] Aspartate Aminotransferase 16 13 - 39 U/L [facility] Alanine Aminotransferase 10 7 - 52 U/L [facility] Total Protein 6.4 6.4 - 8.9 g/dL [facility] Albumin 4.3 3.5 - 5.7 g/dL [facility] Calcium 9.4 8.6 - 10.3 mg/dL [facility] Anion Gap 8.9 7.0 - 15.0 mEq/L [facility] Globulin 2.1 2.0 - 3.5 g/dL [facility] EGFR 115 >60 ml/min/1. 73m2 [facility] Comment: This eGFR is calculated using 2020 CKD-EPI Creatinine equation without race modifier based on the NKF-ASN task force recommendations Blood 10/17/2021 9:35 AM CDT Narrative [facility] - 10/17/2021 10:34 AM CDT IS THE PATIENT REQUIRED TO BE FASTING FOR 8 HOURS?->No Release to patient->Immediate Yaquelin Barker PAC CHEMISTRY ORDERABLES Final Result Performing Organization Address [facility] de Phone Number [facility] [place] [address], * IRON W/ IRON BINDING CAPACITY [place] (10/17/2021 9:35 AM CDT) IRON 75 50 - 212 ug/dL [facility] UIBC 216 155 - 355 ug/dL [facility] TIBC 291 261 - 478 ug/dl [facility] % Saturation 26 20 - 50 % [facility] Blood 10/17/2021 9:35 AM CDT [facility] - 10/17/2021 10:34 AM CDT Release to patient->Immediate Yaquelin Barker PAC LAB SEND OUTS Final Resu lt Performing Organization Address [facility] Co de Phone Number [facility] [place] [address], * FERRITIN (10/17/2021 9:35 AM CDT) Ferritin 30 11 - 307 ng/mL [facility] Blood 10/17/2021 9:35 AM CDT [facility] - 10/18/2021 4:19 PM CDT Release to patient->Immediate us Yaquelin Barker PAC CHEMISTRY ORDERABLES Final Result Performing Organization Address City/[facility]/ZIP Co de Phone Number [facility] [address] [place] [address], [place] [phone] * VITAMIN B12 (10/17/2021 9:35 AM CDT) Vitamin B12 288 180 - 914 pg/mL [facility] Blood 10/17/2021 9:35 AM CDT [facility] 10/18/2021 4:21 PM CDT Release to patient->Immediate us Yaquelin Barker PAC CHEMISTRY ORDERABLES Final Result Performing Organization Address [facility]/ZIP Co de Phone Number [facility] [address] [place] [address], [place] [phone] * FOLIC ACID (FOLATE) (10/17/2021 9:35 AM CDT) Folate >20.00 >=5.90 ng/mL [facility] Blood 10/17/2021 9:35 AM CDT [facility] - 10/18/2021 4:21 PM CDT IS THE PATIENT REQUIRED TO BE FASTING FOR 12 HOURS?->No Release to patient->Immediate us Yaquelin Barker PAC CHEMISTRY ORDERABLES Final Result Performing Organization Address City/[facility]/ZIP Co de Phone Number [facility] [address] [place] [address], [place] [phone] documented in this encounter Visit Diagnoses Diagnosis Iron deficiency anemia, unspecified iron deficiency anemia type Vitamin D deficiency Unspecified vitamin D deficiency documented in this encounter Care Teams Stiff Leg Operator Relationship Specialty Start Date End Date Jacquie Fair, PLATE GLASS INSTALLER, COMPENSATION MANAGER [address] [facility], [address] [place] [address] PCP - General Advanced Practice Nurse 07/11/21 documented as of this encounter
--- OUTSIDE RECORDS SUMMARY | 2024-02-27 09:43 | XMS_ITS | Encounter Summary ---
Author Organization [employer] Care Team Providers Care Traditional Maori Health Practitioner Name Role Phone Jacquie Fair APRN, CNP Primary Care Provid er Encounter Details Date Type Department Care Team (Latest Contact Info) Description 08/11/2021 Travel Social History Tobacco Use Types Packs/Day [...] on filedocumented in this encounter Care Teams Traditional Maori Health Practitioner Relationship Specialty Start Date End Date Jacquie Fair APRN, CNP [address] [facility], [address] [place] [address] PCP - General Advanced Practice Nurse 07/11/21 documented as of this encounter
--- OUTSIDE RECORDS SUMMARY | 2024-02-27 09:43 | XMS_ITS | Encounter Summary ---
Author Organization [facility] Address [address] [place] [address] Phone Care Team Providers Care Steamship Agent Name Role Phone Jacquie Fair APRN, CNP Primary Care Provid er Encounter Details Date Type Department Care Team (Late st Contact Info) Description 08/04/2021 Telephone [facility] [address] [place] [address] Josh Akhtar, DO [address] [place] [address] Social History Tobacco Use Types Packs/Day [...] PM CDT documented as of this encounter Miscellaneous Notes * Telephone Encounter - Raj Kuo RN - 08/10/2021 12:26 PM CDT Patient is approved and scheduled for treatment. * Telephone Encounter - Raj Kuo RN - 08/10/2021 12:26 PM CDT Images from the original note were not included. Juana Velásquez, PHARMD You; Josh Akhtar DO; Cc Prior Auth Treatment Pool 6 days ago AG This plan has been built by pharmacy and is ready for your review! Thanks, Janay Message text * Telephone Encounter - Gabrielle Saini - 08/04/2021 3:32 PM CDT Please add to treatment plan and authorize. * Telephone Encounter - Josh Akhtar DO - 08/04/2021 2:13 PM CDT Please auth and set up for 2 doses of ferahem documented in this encounter Plan of Treatment Not on file documented as of this encounter Visit Diagnoses Not on filedocumented in this encounter Care Teams Steamship Agent Relationship Specialty Start Date End Date Jacquie Fair, BARREL DRUM CUTTER, CLINICAL EDUCATION ASSISTANT [address] [facility], [address] [place] [address] PCP - General Advanced Practice Nurse 07/11/21 documented as of this encounter
--- OUTSIDE RECORDS SUMMARY | 2024-02-27 09:43 | XMS_ITS | Encounter Summary ---
Author Organization [facility] Address [address] [place] [address] Phone Care Team Providers Care Train Gate Attendant Name Role Phone Jacquie Fair APRN RECONCILER Primary Care Provid er Reason for Visit * Reason Comments New Patient * Consult, Test & Initiate Treatment (Routine) - Closed Specialty Diagnoses / Procedures Referred By Nir small Referred To Contact Oncology Diagnoses ANEMIA Jacquie Fair APRN, RECONCILER [address] [facility], [address] [place] [address] Phone: tel: fax: Josh Akhtar DO [address] [facility] [address] [place] [address] Phone: tel: fax: Referral ID Status Reason Start Date Expiration Date Visits Re quested Visits Authorized [id number] Closed 1 1 Encounter Details Date Type Department Care Team (Late st Contact Info) Description 08/02/2021 2:30 PM CDT Office Visit [facility] [address] [facility] [address] [place] [address] Josh Akhtar DO [address] [place] [address] Iron deficiency anemia, unspecified iron [...] Reading Time Taken Comments Blood Pressure 102/70 08/02/2021 3:01 PM CDT Pulse 72 08/02/2021 3:01 PM CDT Temperature 36.6 ??C (97.9 ??F) 08/02/2021 3:01 PM CD T Respiratory Rate - - Oxygen Saturation 98% 08/02/2021 3:01 PM CDT Inhaled Oxygen Concentration - - Weight 44 kg (97 lb) 08/02/2021 3:01 PM CDT Height 157.5 cm (5' 2 ) 08/02/2021 3:01 PM CDT Body Mass Index 17.74 08/02/2021 3:01 PM CDT documented in this encounter Progress Notes * Josh Akhtar DO - 08/02/2021 2:30 PM CDT Images from the original note were not included. Patient: Shagufta Lamar Age: 35 y.o. : 1985 Encounter Dept: [facility] Encounter Date: 08/02/2021 Care Team: Current Providers PCP: Jacquie Fair APRN, CNP Encounter Provider: Josh Akhtar DO Referring Provider: Jacquie Fair APRN, CNP Consulting Physician: Josh Akhtar DO PCP: Jacquie Fair APRN, CNP PATIENT IDENTIFICATION: This is a very pleasant 35 -year old female. HISTORY OF PRESENT ILLNESS: This is a very pleasant woman who was referred for iron deficiency anemia. The patient has history of abdominal discomfort. It was as if she was seen and managed at [facility] in the not too distant past. I believe it was sometime in June. The patient had CT imaging studies which showed the patient to have severe antral gastritis. Patient was treated with Protonix, Carafate and dicyclomine and discharged home. Patient reports severe dysfunctional uterine bleeding. She has very heavy menstrual cycles. The patient has had a miscarriage in the last six months.The patient denies pica symptoms but reported previous pica symptoms and was craving puddle water. Patient is taking iron supplementation but does not appear to be improving her fatigue. DIAGNOSIS: 1. Iron deficiency. 2. Dysfunctional uterine bleeding. 3. Severe antral gastritis on CT imaging. PAST TREATMENT: 1. Colonoscopy in 2008. 2. Patient had dilatation and curettage 12/28/20. CURRENT TREATMENT: 1. GI evaluation. 2. Consideration of IV iron supplementation. TREATMENT GUIDELINES: Consistent with NCCN guidelines. PROGNOSIS: Not applicable. EXPECTED RESPONSE TO TREATMENT: Not applicable. EXPECTED QUALITY OF LIFE DURING TREATMENT: Fair. ECOG: Not applicable. PAIN: Not applicable. PLAN FOR PAIN: Not applicable. CODE STATUS: Full code ASSESSMENT: 1. Iron deficiency. 2. Dysfunctional uterine bleeding. 3. Severe antral gastritis on CT imaging. PLAN: 1. Check iron studies and CBC. 2. If patient is iron deficient we will schedule her for IV iron supplementation. 3. Agree with GI evaluation. 4. Patient to contact me in the interim for any problems. REVIEW OF SYSTEMS: See HPI; otherwise, 12-point [...] or effusion. No spine tenderness. LABORATORY/PATHOLOGY/IMAGING NOTES: 1. Ferritin 1.0, iron 24, iron saturation 6% and hemoglobin was 9.9. MCV was 78. Josh Akhtar, DO, FACOI Vitals: Vitals: 08/02/21 1501 BP: 102/70 Pulse: 72 Temp: 97.9 ??F (36.6 ??C) SpO2: 98% Weight: (!) 97 lb (44 kg) Height: 5' 2 (1.575 m) Body surface area is 1.39 meters squared. Body mass index is 17.74 kg/m??. Pain Score: 0 - No pain [...] ??? HC TUBING FLEXIBLE S LEEP DISPOSABLE 38IN X 2FT ??? REMOVAL OF FALLOPIAN TUBE [...] Current Medications: Outpatient Encounter Medications as of 08/02/2021 Medication Sig Dispense Refill ??? Cyanocobalamin (B-12 PO) Take by mouth. ??? DULoxetine (CYMBALTA) [address] Particles ??? Ferrous Sulfate (IRON PO) Take by mouth. ??? pantoprazole (PROTONIX) 40 MG Tablet Delayed Response No facility-administered encounter medications on file as of 08/02/2021. Labs: No visits with results within 7 Day(s) from this visit. Latest known visit with results is: No results found for any previous visit. documented in this encounter Plan of Treatment Scheduled Orders Name Type Priority Associated Diagnoses Orde r Schedule COMPLETE BLOOD COUNT (CBC) WITH DIFF Lab Routine Iron deficiency anemia, unspecified iron deficiency anemia type Expected: 08/02/2021, Expires: 08/16/2021 CMP (COMPREHENSIVE METABOLIC PANEL) Lab Routine Iron deficiency anemia, unspecified iron deficiency anemia type Expected: 08/02/2021, Expires: 08/16/2021 VITAMIN B12 Lab Routine Iron deficiency anemia, unspecified iron deficiency anemia type Expected: 08/02/2021, Expires: 08/16/2021 FOLIC ACID (FOLATE) Lab Routine Iron deficiency anemia, unspecified iron deficiency anemia type Expected: 08/02/2021, Expires: 08/16/2021 FERRITIN Lab Routine Iron deficiency anemia, unspecified iron deficiency anemia type Expected: 08/02/2021, Expires: 08/16/2021 IRON W/ IRON BINDING CAPACITY [place] Lab Routine Iron deficiency anemia, unspecified iron deficiency anemia type Expected: 08/02/2021, Expires: 08/16/2021 documented as of this encounter Visit Diagnoses Diagnosis Iron deficiency anemia, unspecified iron deficiency anemia type- Primary documented in this encounter Care Teams Train Gate Attendant Relationship Specialty Start Date End Date Jacquie Fair, EXPERIENCE DESIGN DIRECTOR, RECONCILER [address] [facility], [address] [place] [address] PCP - General Advanced Practice Nurse 07/11/21 documented as of this encounter
--- OUTSIDE RECORDS SUMMARY | 2024-02-27 09:43 | XMS_ITS | Encounter Summary ---
Author Organization [facility] Address [address] [place] [address] Phone Care Team Providers Care Instructor Tap Dancing Name Role Phone Jacquie Fair APRN, CNP Primary Care Provid er Reason for Visit * Reason Comments Follow-up Encounter Details Date Type Department Care Team (Late st Contact Info) Description 09/12/2021 8:45 AM CDT Office Visit [facility] [address] [phone] Yaquelin Barker, PAC Iron deficiency anemia, unspecified iron deficiency anemia type (Primary Dx); Vitamin D deficiency Social History Tobacco Use Types Packs/Day Years Used Date Smoking Tobacco: Every Day Cigarettes Smokeless Tobacco: Never Alcohol Use Standard Drinks/Week Comments Never 0 (1 standard drink = 0.6 oz pur e alcohol) PHQ-2 Answer Date Recorded Total Score - Questions 1-9 0 0 07/2021 Comments Unknown Sex and Gender Information [...] Sign Reading Time Taken Comments Blood Pressure 98/64 09/12/2021 8:41 AM CDT Pulse 106 09/12/2021 8:41 AM CDT Temperature 36.7 ??C (98 ??F) 09/12/2021 8:41 AM CDT Respiratory Rate 18 09/12/2021 8:41 AM CDT Oxygen Saturation 97% 09/12/2021 8:41 AM CDT Inhaled Oxygen Concentration - - Weight 44.5 kg (98 lb) 09/12/2021 8:41 AM CDT Height 157.5 cm (5' 2 ) 09/12/2021 8:41 AM CDT Body Mass Index 17.92 09/12/2021 8:41 AM CDT documented in this encounter Progress Notes * Yaquelin Barker, PAC - 09/12/2021 8:45 AM CDT Images from the original note were not included. Patient: Shagufta Lamar Age: 36 y.o. : 1985 [facility] Encounter Date: 09/12/2021 Care Team: Current Providers PCP: Jacquie Fair APRN, CNP Encounter Provider: Josh Akhtar DO Referring Provider: Jacquie Fair APRN, CNP Consulting Physician: Josh Akhtar DO PRIMARY PHYSICIAN: Jacquie Fair APRN, CNP PATIENT IDENTIFICATION: This is a very pleasant 36-year-old female. HISTORY OF PRESENT ILLNESS: The patient presents to the office today for followup visit. History ofiron deficiency anemia. H/o gastritis Denies nausea or vomiting. Taking Pantoprazole and Carafate with good benefit. Followed by Gastroenterology. Repeat endoscopy and colonoscopy deferred at patient's request. Seen by Gynecology back in December. Uterine ablation recommended. She has not followed up with Gynecology as of yet. Continues to report heavy menstrual periods. DIAGNOSIS: 1. Iron deficiency. 2. Dysfunctional uterine [...] antral gastritis on CT imaging. PLAN: 1. She is status post two doses of IV iron with the last dose given on August 18. 2. Repeat CBC, CMP, iron studies, B12, and folate. 3. Give additional IV iron if indicated. 4. RTC 5 weeks 5. Recommended follow up with Gynecology and Gastroenterology. Dr. Akhtar was present in the office. [...] or effusion. No spine tenderness. LABORATORY/PATHOLOGY/IMAGING NOTES: Josh Akhtar DO, EDILIA Barker PA-C /[facility] Vitals: Vitals: 09/12/21 0841 BP: 98/64 BP Location: Left Arm BP Position: Sitting BP Cuff Size: Regular Pulse: 106 Resp: 18 Temp: 98 ??F (36.7 ??C) TempSrc: Temporal SpO2: 97% Weight: (!) 98 lb (44.5 kg) Height: 5' 2 (1.575 m) Body surface area is 1.4 meters squared. Body mass index is 17.92 kg/m??. Pain Score: 0 - No pain [...] Current Medications: Outpatient Encounter Medications as of 09/12/2021 Medication Sig Dispense Refill ??? Cyanocobalamin (B-12 PO) Take by mouth. (Patient not taking: Reported on 09/12/2021) ??? DULoxetine (CYMBALTA) [address] Particles ??? Ferrous Sulfate (IRON PO) Take by mouth. (Patient not taking: Reported on 09/12/2021) ??? pantoprazole (PROTONIX) 40 MG Tablet Delayed Response No facility-administered encounter medications on file as of 09/12/2021. Labs: No visits with results within 7 Day(s) from this visit. Latest known visit with results is: No results found for any previous visit. Cosigned by Josh Akhtar DO at 09/18/2021 3:20 PM CDT documented in this encounter Plan of Treatment Not on file documented as of this encounter Results * FOLIC ACID (FOLATE) (10/17/2021 9:35 AM CDT) Folate >20.00 >=5.90 ng/mL [facility] Blood 10/17/2021 9:[address] [facility] - 10/18/2021 4:21 PM CDT IS THE PATIENT REQUIRED TO BE FASTING FOR 12 HOURS?->No Release to patient->Immediate Yaquelin Barker PAC CHEMISTRY ORDERABLES Final Result Performing Organization Address City/Special Care [facility]/ZIP Co de Phone Number [facility]PER[facility] [address] [place] [address], [place] [phone] * VITAMIN B12 (10/17/2021 9:35 AM CDT) Vitamin B12 288 180 - 914 pg/mL [facility] Blood 10/17/2021 9:[address] [facility] - 10/18/2021 4:21 PM CDT Release to patient->Immediate Yaquelin Barker PAC CHEMISTRY ORDERABLES Final Result [facility] [address] [place] [address], [place] [phone] * FERRITIN (10/17/2021 9:35 AM CDT) Ferritin 30 11 - 307 ng/mL CANCER SUPERVISOR INSTRUMENT MECHANICS [facility] Blood 10/17/2021 9:35 AM CDT Narrative [facility] - 10/18/2021 4:19 PM CDT Release to patient->Immediate Yaquelin Barker PAC CHEMISTRY ORDERABLES Final Result Performing Organization Address City/[facility]/ZIP Co de Phone Number [facility]PER[facility] [address] [place] [address], [place] [phone] * IRON W/ IRON BINDING CAPACITY [place] (10/17/2021 9:35 AM CDT) IRON 75 50 - 212 ug/dL [facility] UIBC 216 155 - 355 ug/dL [facility] TIBC 291 261 - 478 ug/dl [facility] % Saturation 26 20 - 50 % [facility] Blood 10/17/2021 9:35 AM CDT [facility] - 10/17/2021 10:34 AM CDT Release to patient->Immediate Yaquelin Barker PAC LAB SEND OUTS Final Resu lt Performing Organization Address City/[facility]/ZIP Co de Phone Number [facility] [address] [id number], [place] [phone] * CMP (COMPREHENSIVE METABOLIC PANEL) (10/17/2021 9:35 AM CDT) Glucose 82 70 - 105 mg/dL [facility] Blood Urea Nitrogen 10 7 - 25 mg/dL [facility] Creatinine 0.7 0.6 - 1.2 mg/dL [facility] Sodium 139 136 - 145 mEq/L [facility] Potassium 3.9 3.5 - 5.1 mEq/L [facility] Chloride 104 98 - 107 mEq/L [facility] Bicarbonate 30 21 - 31 mEq/L [facility] Total Bilirubin 0.4 0.3 - 1.0 mg/dL [facility] Alk. Phosphatase 34 34 - 104 U/L [facility] Aspartate Aminotransferase 16 13 - 39 U/L [facility] Alanine Aminotransferase 10 7 - 52 U/L [facility] Total Protein 6.4 6.4 - 8.9 g/dL [facility] Albumin 4.3 3.5 - 5.7 g/dL [facility] Calcium 9.4 8.6 - 10.3 mg/dL [facility] Anion Gap 8.9 7.0 - 15.0 mEq/L [facility] Globulin 2.1 2.0 - 3.5 g/dL [facility] EGFR 115 >60 ml/min/1. 73m2 [facility] Comment: This eGFR is calculated using 2020 CKD-EPI Creatinine equation without race modifier based on the NKF-ASN task force recommendations Blood 10/17/2021 9:35 AM CDT Narrative [facility] - 10/17/2021 10:34 AM CDT IS THE PATIENT REQUIRED TO BE FASTING FOR 8 HOURS?->No Release to patient->Immediate Yaquelin Barker PAC CHEMISTRY ORDERABLES Final Result [facility] [place] [address], * (ABNORMAL) COMPLETE BLOOD COUNT (CBC) WITH DIFF (10/17/2021 9:35 AM CDT) WBC 3.9(L) 4.0 - 10.0 10*3/uL [facility] HGB 12.2 11.2 - 15.7 g/dL [facility] HCT 36.4 34.1 - 44.9 % [facility] PLT 279 163 - 369 10*3/uL [facility] MPV 9.6 9.4 - 12.4 fL [facility] RBC 4.24 3.93 - 5.22 10*6/uL [facility] MCV 86 79 - 95 fL [facility] MCH 28.8 25.6 - 32.2 pg [facility] MCHC 33.5 32.2 - 36.5 g/dL [facility] RDW 15.8(H) 11.6 - 14.4 % [facility] Absolute Neutrophil Count 1,896 cells/uL [facility] Absolute Seg Count 1,896 1,440 - 6,600 cells/uL [facility] Absolute Lymph Count 1,509 760 - 4,000 cells/uL [facility] Absolute Tillman Count 232 160 - 1,200 cells/uL [facility] Absolute Eos Count 194 0 - 300 cells/uL [facility] Absolute Baso Count 39 0 - 100 cells/uL [facility] Segmented Neutrophils 49 36 - 66 % [facility] Lymphocytes 39 19 - 40 % [facility] Monocytes 6 4 - 12 % [facility] Eosinophils 5(H) 0 - 3 % [facility] Basophils 1 0 - 1 % [facility] WBC Estimate Low [facility] Platelet Estimate Normal [facility] RBC Morphology Abnormal [facility] Anisocytosis 1+ [facility] Blood 10/17/2021 9:35 AM CDT Narrative [facility] - 10/17/2021 1:04 PM CDT Release to patient->Immediate Yaquelin Barker [facility] ORDERABLES Mary iverson Result [facility] [address] [place] [address], * VITAMIN D, 25 HYDROXY TOTAL (09/12/2021 9:41 AM CDT) 25() Vitamin D, Total 30.4 30.0 - 100.0 ng/mL CANCER SUPERVISOR INSTRUMENT MECHANICS [facility] Comment: The Clinical Guidelines Subcommittee of the Endocrine Society Task Force established the guidelines below for recommended serum 25(OH) vitamin D levels. ??Other clinical reference citations may show different values. Deficient ? <20 ? Insufficient ? 20 to <30 ? Sufficient ? 30 to 100 ? Upper Safety Limit ?>100 Blood 09/12/2021 9:41 AM CDT [facility] - 09/13/2021 2:23 PM CDT Release to patient->Immediate Yaquelin Barker PAC CHEMISTRY ORDERABLES Final Result Performing Organization Address [facility] Co de Phone Number CANCER SUPERVISOR INSTRUMENT MECHANICS [facility] Cancer [facility] [address] [place] [address], * FOLIC ACID (FOLATE) (09/12/2021 9:41 AM CDT) Folate >20.00 >=5.90 ng/mL [facility] Blood 09/12/2021 9:41 AM CDT [facility] - 09/12/2021 1:59 PM CDT IS THE PATIENT REQUIRED TO BE FASTING FOR 12 HOURS?->No Release to patient->Immediate Yaquelin Barker PAC CHEMISTRY ORDERABLES Final Result Performing Organization Address [facility] Co de Phone Number [facility]PER[facility] [address] [place] [address], * VITAMIN B12 (09/12/2021 9:41 AM CDT) Vitamin B12 297 180 - 914 pg/mL [facility] Blood 09/12/2021 9:41 AM CDT [facility] - 09/12/2021 1:59 PM CDT Release to patient->Immediate Yaquelin Barker PAC CHEMISTRY ORDERABLES Final Result [facility] SUPERVISOR INSTRUMENT [employer]CHAN[employer] [facility] [address] [place] [address], * FERRITIN (09/12/2021 9:41 AM CDT) Ferritin 154 11 - 307 ng/mL [facility] Blood 09/12/2021 9:41 AM CDT Narrative [facility] - 09/12/2021 1:59 PM CDT Release to patient->Immediate Yaquelin Barker PAC CHEMISTRY ORDERABLES Final Result Performing Organization Address City/[facility] Co de Phone Number [facility]PER[facility] [address] [place] [address], * IRON W/ IRON BINDING CAPACITY [place] (09/12/2021 9:41 AM CDT) IRON 89 50 - 212 ug/dL [facility] UIBC 181 155 - 355 ug/dL [facility] TIBC 270 261 - 478 ug/dl [facility] % Saturation 33 20 - 50 % [facility] Blood 09/12/2021 9:41 AM CDT [facility] - 09/12/2021 10:41 AM CDT Release to patient->Immediate Yaquelin Barker PAC LAB SEND OUTS Final Resu lt [facility] [address] [place] [address], [place] [phone] * (ABNORMAL) CMP (COMPREHENSIVE METABOLIC PANEL) (09/12/2021 9:41 AM CDT) Glucose 95 70 - 105 mg/dL [facility] Blood Urea Nitrogen 11 7 - 25 mg/dL [facility] Creatinine 0.8 0.6 - 1.2 mg/dL [facility] Sodium 140 136 - 145 mEq/L [facility] Potassium 3.9 3.5 - 5.1 mEq/L [facility] Chloride 104 98 - 107 mEq/L [facility] Bicarbonate 30 21 - 31 mEq/L [facility] Total Bilirubin 0.3 0.3 - 1.0 mg/dL [facility] Alk. Phosphatase 30(L) 34 - 104 U/L [facility] Aspartate Aminotransferase 19 13 - 39 U/L [facility] Alanine Aminotransferase 12 7 - 52 U/L [facility] Total Protein 6.7 6.4 - 8.9 g/dL [facility] Albumin 4.5 3.5 - 5.7 g/dL [facility] Calcium 9.6 8.6 - 10.3 mg/dL [facility] Anion Gap 9.9 7.0 - 15.0 mEq/L [facility] Globulin 2.2 2.0 - 3.5 g/dL [facility] EGFR 98 >60 ml/min/1. 73m2 [facility] Comment: This eGFR is calculated using 2020 CKD-EPI Creatinine equation without race modifier based on the NKF-ASN task force recommendations Blood 09/12/2021 9:41 AM CDT Narrative [facility] - 09/12/2021 10:41 AM CDT IS THE PATIENT REQUIRED TO BE FASTING FOR 8 HOURS?->No Release to patient->Immediate Yaquelin Barker PAC CHEMISTRY ORDERABLES Final Result [facility] [address] [place] [address], * (ABNORMAL) COMPLETE BLOOD COUNT (CBC) WITH DIFF (09/12/2021 9:41 AM CDT) WBC 3.7(L) 4.0 - 10.0 10*3/uL [facility] HGB 11.6 11.2 - 15.7 g/dL [facility] HCT 35.7 34.1 - 44.9 % [facility] PLT 260 163 - 369 10*3/uL [facility] MPV 9.8 9.4 - 12.4 fL [facility] RBC 4.26 3.93 - 5.22 10*6/uL [facility] MCV 84 79 - 95 fL [facility] MCH 27.2 25.6 - 32.2 pg [facility] MCHC 32.5 32.2 - 36.5 g/dL [facility] RDW 19.6(H) 11.6 - 14.4 % [facility] Absolute Neutrophil Count 1,720 cells/uL [facility] Absolute Seg Count 1,720 1,440 - 6,600 cells/uL [facility] Absolute Lymph Count 1,608 760 - 4,000 cells/uL [facility] Absolute Tillman Count 187 160 - 1,200 cells/uL [facility] Absolute Eos Count 150 0 - 300 cells/uL [facility] Absolute Baso Count 75 0 - 100 cells/uL [facility] Segmented Neutrophils 46 36 - 66 % [facility] Lymphocytes 43(H) 19 - 40 % [facility] Monocytes 5 4 - 12 % [facility] Eosinophils 4(H) 0 - 3 % [facility] Basophils 2(H) 0 - 1 % [facility] WBC Estimate Low [facility] Platelet Estimate Normal [facility] RBC Morphology Abnormal [facility] Anisocytosis 1+ [facility] Blood 09/12/2021 9:41 AM CDT Narrative [facility] - 09/12/2021 11:28 AM CDT Release to patient->Immediate Yaquelin Barker [facility] ORDERABLES Mary iverson Result [facility] [address] [place] [address], documented in this encounter Visit Diagnoses Diagnosis Iron deficiency anemia, unspecified iron deficiency anemia type- Primary Vitamin D deficiency Unspecified vitamin D deficiency Iron deficiency anemia, unspecified iron deficiency anemia type Vitamin D deficiency Unspecified vitamin D deficiency Iron deficiency anemia, unspecified iron deficiency anemia type Vitamin D deficiency Unspecified vitamin D deficiency documented in this encounter Care Teams Instructor Tap Dancing Relationship Specialty Start Date End Date Jacquie Fair, BREAKER UNIT ASSEMBLER, CYBER SECURITY ADMINISTRATOR [address], [address] [place] [address] PCP - General Advanced Practice Nurse 07/11/21 documented as of this encounter
--- OUTSIDE RECORDS SUMMARY | 2024-02-27 09:43 | XMS_ITS | Encounter Summary ---
Author Organization [employer] Care Team Providers Care Supervisor [employer] Production Name Role Phone Jacquie Fair APRN, CNP Primary Care Provid er Encounter Details Date Type Department Care Team (Latest Contact Info) Description 01/16/2022 Travel Social History Tobacco Use Types Packs/Day [...] Coronavirus/COVID-19? No / Unsure 01/16/2022 8:02 AM PETROPHYSICIST documented as of this encounter Plan of Treatment Not on file documented as of this encounter Visit Diagnoses Not on filedocumented in this encounter Care Teams Supervisor [employer] And Hat Production Relationship Specialty Start Date End Date Jacquie Fair APRN, CNP [address], [address] [place] [address] PCP - General Advanced Practice Nurse 07/11/21 documented as of this encounter
--- OUTSIDE RECORDS SUMMARY | 2024-02-27 09:43 | XMS_ITS | Encounter Summary ---
Author Organization [facility] Address [address] [place] [address] Phone Care Team Providers Care Take Down Inspector Name Role Phone Jacquie Fair APRN, CNP Primary Care Provid er Reason for Referral * Consult, Test & Initiate Treatment (Routine) - Closed Specialty Diagnoses / Procedures Referred By Nir small Referred To Contact Gynecology Diagnoses Iron deficiency anemia, unspecified iron deficiency anemia type Menorrhagia with regular cycle Yaquelin Barker PAC Referral ID Status Reason Start Date Expiration Date Visits Re quested Visits Authorized [id number] Closed 10/17/2021 1 1 Scheduling Instructions Shagufta is being referral for heavy menstrual periods. Wants to seen by a WEAVER TIRE CORD at [facility] Reason for Visit * Reason Comments Follow-up Encounter Details Date Type Department Care Team (Late st Contact Info) Description 10/17/2021 10:45 AM CDT Office Visit [facility] [address] [id number] Yaquelin Barker PAC Iron deficiency anemia, unspecified iron deficiency [...] Reading Time Taken Comments Blood Pressure 100/60 10/17/2021 9:50 AM CDT Pulse 87 10/17/2021 9:50 AM CDT Temperature 36.8 ??C (98.2 ??F) 10/17/2021 9:50 AM CD T Respiratory Rate - - Oxygen Saturation 99% 10/17/2021 9:50 AM CDT Inhaled Oxygen Concentration - - Weight 44.4 kg (97 lb 12.8 oz) 10/17/2021 9:50 A M CDT Height 157.5 cm (5' 2 ) 10/17/2021 9:50 AM CDT Body Mass Index 17.89 10/17/2021 9:50 AM CDT documented in this encounter Progress Notes * Yaquelin Barker PAC - 10/17/2021 10:45 AM CDT Images from the original note were not included. Patient: Shagufta Lamar Age: 36 y.o. : 1985 [facility] En[facility] Date: 10/17/2021 Care Team: Current Providers PCP: Jacquie Fair APRN, CNP Encounter Provider: Yaquelin Barker PAC Referring Provider: Jacquie Fair APRN, CNP Physician Natural Developer: Yaquelin Barker PAC PRIMARY PHYSICIAN: Jacquie Fair APRN, CNP PATIENT IDENTIFICATION: This is a very pleasant 36-year-old female. HISTORY OF PRESENT ILLNESS: The patient presents to the office today for a followup visit. No new complaints or concerns since her last office visit. She was seen and evaluated in the past by Gastroenterology for history if gastritis and anemia. Patient declined endoscopy and colonoscopy. She was also seen by Gynecology. History of uterine fibroids and mennorhagia. She does have heavy menstrual periods. Continues to report heavy menstrual periods. Menstrual period lasts seven to ten days. Patient going through heavy size menstrual pads and using disposable menstrual underwear. She is more tired and fatigue during menstrual cycle. Denies WHITTAKER, lightheadedness. No chest pain . No SOB. No abdomin al pain or discomfort. No changes to her bowels. No weight-loss or weight-gain. History of iron deficiency. Taking oral iron pills daily. DIAGNOSIS: 1. Iron deficiency. 2. Dysfunctional uterine [...] on CT imaging. PLAN: 1. Repeat labs today. 2. Continue oral iron pill 3. Give IV iron as indicated. 4. RTC 6 weeks 5. Referral to Gynecology at [facility]. Dr. Akhtar was present in the office. [...] shown below reviewed. Josh Akhtar DO, EDILIA Barker PA-C /[facility] Vitals: Vitals: 10/17/21 0950 BP: 100/60 BP Location: Left Arm BP Position: Sitting BP Cuff Size: Regular Pulse: 87 Temp: 98.2 ??F (36.8 ??C) TempSrc: Temporal SpO2: 99% Weight: (!) 97 lb 12.8 oz (44.4 kg) Height: 5' 2 (1.575 m) Body surface area is 1.39 meters squared. Body mass index is 17.89 kg/m??. Pain Score: 0 - No pain [...] Current Medications: Outpatient Encounter Medications as of 10/17/2021 Medication Sig Dispense Refill ??? albuterol 108 (90 Base) MCG/ACT Aerosol Solution INHALE 2 PUFFS BY MOUTH EVERY 6 HOURS NEEDED FOR WHEEZING OR SHORTNESS OF BREATH ??? Cyanocobalamin (B-12 PO) Take by mouth. (Patient not taking: Reported on 09/12/2021) ??? DULoxetine (CYMBALTA) [address] Particles ??? [DISCONTINUED] Ferrous Sulfate (IRON PO) Take by mouth. (Patient not taking: Reported on 09/12/2021) ??? [DISCONTINUED] pantoprazole (PROTONIX) 40 MG Tablet Delayed Response No facility-administered encounter medications on file as of 10/17/2021. Labs: Lab on 10/17/2021 Component Date Value Ref Range Status ??? WBC 10/17/2021 3.9 (A) 4.0 - 10.0 10*3/uL Final ??? HGB 10/17/2021 12.2 11.2 - 15.7 g/dL Final ??? HCT 10/17/2021 36.4 34.1 - 44.9 % Final ??? PLT 10/17/2021 279 163 - 369 10*3/uL Final ??? MPV 10/17/2021 9.6 9.4 - 12.4 fL Final ??? RBC 10/17/2021 4.24 3.93 - 5.22 10*6/uL Final ??? MCV 10/17/2021 86 79 - 95 fL Final ??? MCH 10/17/2021 28.8 25.6 - 32.2 pg Final ??? MCHC 10/17/2021 33.5 32.2 - 36.5 g/dL Final ??? RDW 10/17/2021 15.8 (A) 11.6 - 14.4 % Final Cosigned by Josh Akhtar DO at 10/20/2021 1:44 AM CDT documented in this encounter Plan of Treatment Scheduled Referrals Name Type Priority Associated Diagnoses Orde r Schedule EXTERNAL GYNECOLOGY REFERRAL HST Outpatient Referral Routine Iron deficiency anemia, unspecified iron deficiency anemia type Menorrhagia with regular cycle Expected: 10/17/2021, Expires: 10/17/2022 documented as of this encounter Results * FOLIC ACID (FOLATE) (12/05/2021 8:37 AM CDT) Folate >20.00 >=5.90 ng/mL [facility] Blood 12/05/2021 8:37 AM CDT [facility] - 12/05/2021 1:56 PM CDT IS THE PATIENT REQUIRED TO BE FASTING FOR 12 HOURS?->No Release to patient->Immediate Yaquelin Barker PAC CHEMISTRY ORDERABLES Final Result [facility] [address] [place] [address], [place] [phone] * VITAMIN B12 (12/05/2021 8:37 AM CDT) Vitamin B12 346 180 - 914 pg/mL [facility] Blood 12/05/2021 8:37 AM CDT [facility] - 12/05/2021 2:06 PM CDT Release to patient->Immediate Yaquelin Barker PAC CHEMISTRY ORDERABLES Final Result [facility] [address] [place] [address], [place] [phone] * FERRITIN (12/05/2021 8:37 AM CDT) Ferritin 13 11 - 307 ng/mL [facility] Blood 12/05/2021 8:37 AM CDT Narrative [facility] - 12/05/2021 1:56 PM CDT Release to patient->Immediate Yaquelin Barker PAC CHEMISTRY ORDERABLES Final Result Performing Organization Address City/[facility]/ZIP Co de Phone Number [facility] COUNT INCLUDES THE [facility] [address] [place] [address], [place] [phone] * IRON W/ IRON BINDING [place] (12/05/2021 8:37 AM CDT) IRON 91 50 - 212 ug/dL [facility] UIBC 214 155 - 355 ug/dL [facility] TIBC 305 261 - 478 ug/dl [facility] % Saturation 30 20 - 50 % [facility] Blood 12/05/2021 8:37 AM CDT [facility] - 12/05/2021 10:32 AM CDT Release to patient->Immediate Yaquelin Barker PAC LAB SEND OUTS Final Resu lt Performing Organization Address [facility]/ZIP Co de Phone Number [facility] [address] [id number], [place] [phone] * (ABNORMAL) CMP (COMPREHENSIVE METABOLIC PANEL) (12/05/2021 8:37 AM CDT) Glucose 105 70 - 105 mg/dL [facility] Blood Urea Nitrogen 10 7 - 25 mg/dL [facility] Creatinine 0.8 0.6 - 1.2 mg/dL [facility] Sodium 141 136 - 145 mEq/L [facility] Potassium 3.8 3.5 - 5.1 mEq/L [facility] Chloride 105 98 - 107 mEq/L [facility] Bicarbonate 27 21 - 31 mEq/L [facility] Total Bilirubin 0.4 0.3 - 1.0 mg/dL [facility] Alk. Phosphatase 30(L) 34 - 104 U/L [facility] Aspartate Aminotransferase 18 13 - 39 U/L [facility] Alanine Aminotransferase 17 7 - 52 U/L [facility] Total Protein 6.5 6.4 - 8.9 g/dL [facility] Albumin 4.4 3.5 - 5.7 g/dL [facility] Calcium 9.4 8.6 - 10.3 mg/dL [facility] Anion Gap 12.8 7.0 - 15.0 mEq/L [facility] Globulin 2.1 2.0 - 3.5 g/dL [facility] EGFR 98 >60 ml/min/1. 73m2 [facility] Comment: This eGFR is calculated using 2020 CKD-EPI Creatinine equation without race modifier based on the NKF-ASN task force recommendations Blood 12/05/2021 8:37 AM CDT Narrative [facility] - 12/05/2021 10:32 AM CDT IS THE PATIENT REQUIRED TO BE FASTING FOR 8 HOURS?->No Release to patient->Immediate Yaquelin Barker PAC CHEMISTRY ORDERABLES Final Result [facility] [address] [address], documented in this encounter Visit Diagnoses Diagnosis Iron deficiency anemia, unspecified iron deficiency anemia type- Primary Menorrhagia with regular cycle Excessive or frequent menstruation Iron deficiency anemia, unspecified iron deficiency anemia type Menorrhagia with regular cycle Excessive or frequent menstruation documented in this encounter Care Teams Take Down Inspector Relationship Specialty Start Date End Date Jacquie Fair APRN, INVENTORY PLANNER [address], [address] [place] [address] PCP - General Advanced Practice Nurse 07/11/21 documented as of this encounter
--- OUTSIDE RECORDS SUMMARY | 2024-02-27 09:44 | XMS_ITS | Continuity of Care Document ---
Author Organization [facility] Address [address] [place] [address] Phone Care Team Providers Care Client Solutions Manager Name Role Phone Unavailable Unavailable Unavailable Advance Directives Directive Yes / No Effective Date File Name No Information Encounters Encounter Description Practice Location Reason(s) For Visit Diagnoses Date Provider Providers Copied on Encounter [facility], [address], [place], [place], [id number], [place] tel:[phone] Noteworthy Legacy Data No Information May-2 1 No Information Family History Family Member Type Diagnosis Age At Onset No Information Payers Payer name Insurance type Covered libertarian ID Authoriza tion(s) No Information Social History Type Description Quantity Date Captured Comments Sex Female Smoking Status No Information Chief Complaint And Reason For Visit No Information Reason For Referral Reason For Referral No Information History Of Present Illness Encounter Date Complaint History Of Prese nt Illness No Information Functional Status Date Functional Assessmen t No Information Instructions Date Instruction Additional Infor mation No Information Assessments Type Assessment Date No Information Patient Care Teams Name Effective Dates (start - stop) Status Members No Information
--- OUTSIDE RECORDS SUMMARY | 2024-02-27 10:01 | XMS_ITS | Continuity of Care Document ---
Author Name [facility] Organization [facility] Care Team Providers Care Tracer Powder Blender Name Role Phone [facility] Unavailable Unavailable Problems Combined list of problems [...] purpose Active Condition DoD palpitations Active Condition [facility] female pelvic pain Active Condition [facility] Gynecologic Services Intrauterine Device (IUD) Removal Inactive Condition [facility] Observation For Suspected Condition Active Condition [facility] primary lymphadenitis Inactive Condition [facility] control method - IUD Active Condition DoD migraine headache Active Condition DoD anxiety disorder NOS Active Condition [facility] atypical chest pain Inactive Condition Symptom improve [...] increased. Prior hx of having had an MA at age [age] years old when she [...] increased. Prior hx of having had an MA at age [age] years old when she [...] increased. Prior hx of having had an MA at age [age] years old when she [...] increased. Prior hx of having had an MA at age [age] years old when she [...] to go back on an OCP. nonsmoker. [facility] visit for: laboratory Inactive Condition [facility] otitis externa acute Active Condition [facility] Gynecologic Service Prescrip Of Contracept Agent - Repeat Rx Active Condition [facility] Contraceptive Management Active Condition [facility] - incomplete Active Condition POST OP EXAMPRE [...] evra patchrx ortho evrafollow up prn/annual examWJYWJY [facility] ectopic Active Condition A/ P: 20 yo F with above hx possible ectopic on PE and clinical findings, RF of smoking. Pt still having abdominal pain, taking 1 vicoden q6hrs. Pain is unresolved since ER viist on Saturday. Stat Jj today shows drop from 5000 to 1200. Tranvaginal US showing questionable R ovarian mass, ?ectopic. STAT CBC pending. IVF started in clinic, cashier receptionist team paged for in patient evaluation, admission and possible surgery later this evening. Dr. Shields present in room for PE and discussed with pt the need for surgery. Pt and agreed with the current plan. -Discussed with Dr. Shields [facility] Medications Combined list of outpatient medications from [...] INHALATION, LUPIN PHARMACEU, 8.5 g CANISTER Active [id number] 2023 8.5 Pharmac y Data Transac tion Service Facilit y AMITRIPTYLI NE HCL (amitriptyl ine HCl), 25 MG, TABLET, ORAL, UNICHEM PHARMAC, 1000 ea. BOTTLE Active [id number] 4 2023 90 Pharmac y Data Transac tion Service Facilit y MIDODRINE HCL (midodrine HCl), 5 MG, TABLET, ORAL, ADVAGEN PHARMA, 100 ea. BOTTLE Active [id number] 2023 180 Pharmac y Data Transac tion Service Facilit y MIDODRINE HCL (MIDODRINE HCL), 5MG, TABLET, ORAL, SMS GupShupTEX ZENON, 100 ea. BOTTLE Active [id number] 2023 60 Pharmac y Data Transac tion Service Facilit y PREDNISONE (prednisone ), 20 MG, TABLET, ORAL, NOVITIUM/AN I PH, 500 ea. BOTTLE Active [id number] 2023 31 Pharmac y Data Transac tion Service Facilit y ZOLPIDEM TARTRATE (ZOLPIDEM TARTRATE), 5MG, TABLET, ORAL, AUROBINDO PHARM, 100 ea. BOTTLE Active [id number] 2023 30 Pharmac y Data Transac tion Service Facilit y ZOLPIDEM TARTRATE (ZOLPIDEM TARTRATE), 5MG, TABLET, ORAL, AUROBINDO PHARM, 100 ea. BOTTLE Active [id number] 2023 30 Pharmac y Data Transac tion Service Facilit y ZOLPIDEM TARTRATE (ZOLPIDEM TARTRATE), 5MG, TABLET, ORAL, AUROBINDO PHARM, 100 ea. BOTTLE Active [id number] 2023 30 Pharmac y Data Transac tion Service Facilit y Allergies, Adverse Reactions, Alerts Combined list of allergies from Department of Defense and Veterans Affairs facilities. It does not include entries that were removed or entered in error. Substance Category Reaction Severity Reaction type Status Date Reported Comments Source CEPHALOSPORINS Drug allergy (disorder) active [address] [place] [address] Arben HOLLIS ([facility]) cephalosporins Drug allergy vomitting Severe Active [facility] LATEX Drug allergy (disorder) active [address] [place] [address] Arben HOLLIS ([facility]) Latex Allergy to substance Swelling (finding) Moderate Active [address] [place] [address] Immunizations Combined list of available immunizations from the Department of Defense and Veterans Affairs facilities. Immunization Series Date Given Administered By Site Reaction Lot Number CVX Code Drug Clinical Care Coordinator Status Comments Source influenza, injectable, quadrivalent, preservative [...] Date DC Date Status Disposition Source Marcelo [facility] DIRECT TO [facility] FROM OTHER THAN ER OR [facility] [id number] FLAKITO SHIELDS 03/20 DISCHARGED HOME [facility]([facility]) OUTPATIENT [id number] spontan eous AB SHANNON GIPSON 03/20 Released w/o Limitations [facility](G ynecolo gy Clinic) [facility]([facility] OUTPATIENT [id number] followu p MARCIO NORMAN 03/28 Released w/o Limitations [facility](G [facility]) [facility] OUT[facility] [id number] F/U B.C.,EA R YOVANI GOMEZ 06/27 Released w/o Limitations [facility](M adigan [facility]) [facility] OUTPATIENT [id number] change control ,FOSTER Wilson 10/11 Released w/o Limitations [facility](M adigan [facility]) [facility](Car diology Clinic) OUTPATIENT [id number] GXT [facility] SHANIA NGUYEN 10/18 Released w/o Limitations [facility](C ardiolo gy Clinic) [facility]([facility]) OUTPATIENT [id number] GXT/CROW ADMILL TEST LUIS MANUEL DUNBAR 10/18 Released w/o Limitations [facility](F [facility] ) [facility](Car diology Clinic[facility] OUTPATIENT [id number] holtor monitor / heart x14yr MIESHA PADILLA 11/01 Released w/o Limitations [facility]For staci Zaragoza(C ardiolo [facility]) [facility] [place](Mad [facility] Red Team [facility]) OUTPATIENT [id number] FU TESTING INNA WOODWARD Brien 11/06 Released w/o Limitations [facility]aci Zaragoza([facility]) [employer] [place]([facility] Internal Medicine) OUTPATIENT [id number] annual PAP/bir th control BRIDGETT OTTO Antoine 04/04 Released w/o Limitations [employer] [place]([facility] Interna l Medicin e) [employer](Emerge ncy Room Fax [phone]) OUTPATIENT [id number] JOSE ALFREDO PEDERSON 04/14 Released w/o Limitations [employer] [place](Ricarda gency Room Fax [phone]) [employer] [place] [employer]([facility] Internal Medicine) OUTPATIENT [id number] F/U TO ER FOR HEART PAIN BRIDGETT OTTO Antoine 04/21 Released w/o Limitations [employer] [place] [place]([facility] Interna l Medicin e) [employer](Pl[facility]ender Fax [phone]) OUTPATIENT [id number] MIGRAIN E HEADACH E JACKI MARIN 04/26 Released w/o Limitations [employer] [place](Pl[facility] Fax [phone]) [employer] [place]([facility] Internal Medicine) OUTPATIENT [id number] FOLLOW UP FOR HEART PROBLEM S BRIDGETT OTTO Antoine 04/26 Released w/o Limitations [employer] [place]([facility] Interna l Medicin e) [employer](Emerge ncy Room Fax [phone]) OUTPATIENT [id number] RAGHAVENDRA NICKERSON 04/27 Released w/o Limitations [employer] [place](Ricarda gency Room Fax [phone]) [employer] [place]([facility] Internal Medicine) TELE CONSULT [id number] ARTIS GRANGER 05/01 [employer] [place]([facility] Interna l Medicin e) [employer] [place] [employer]([facility] Internal Medicine) OUTPATIENT [id number] FU ON HEART BRIDGETT OTTO 05/02 Released w/o Limitations [employer] [place]([facility] Interna l Medicin e) [employer]([facility] Internal Medicine) TELE CONSULT [id number] SUMAYA BERMUDEZ Yaakov 05/05 [employer] [place]([facility] Interna l Medicin e) [employer]([facility] Internal Medicine) TELE CONSULT [id number] Medicat ion ARTIS GRANGER 05/06 [employer] [place]([facility] Interna l Medicin e) [employer](Cardio logy) OUTPATIENT [id number] PALPITA YONATAN [place] 05/10 Released w/o Limitations [employer] [place](Card [place]ology) [place] [address](Ech o [facility]) OUTPATIENT [id number] Tele Echo KRYSTINA DESAI 05/10 Released w/o Limitations [facility] [place] [address](E cho [facility]) Procedures Combined list of: 1) Procedures from Department of Veterans Affairs facilities going back up to thelast 18 months, not all VA non-surgical procedures are included; 2) All procedures from the Department of Defense facilities. Procedure Procedure Type Code Date Perfomer [facility] e Echo Congenital Cardiac Defects Transthoracic W/ M-Mode, Spectral, & Color Flow Echo Congenital Cardiac Defects Transthoracic W/ M-Mode, Spectral, & Color Flow [id number] KRYSTINA DESAI [facility] Echocardiogram Doppler Echocardiogram Doppler 79223 010 YONATAN CHAN [facility] Echo (2-D) Mode Complete 010 YONATAN CHAN [facility] Gynecologic Services Intrauterine Device (IUD) Removal Gynecologic Services Intrauterine Device (IUD) Removal 83642 010 JACKI MARIN [facility] Continuous ECG Holter Monitor 24 Hour 007 YANY LEONARDO [facility] Exercise Test Performance of Tracing Only Exercise Test Performance of Tracing Only 37355 007 SHANIA NGUYEN [facility] Cardiac Stre Test Interpretation And Report Only Cardiac Stress Test Interpretation And Report Only 06844 LUIS MANUEL DUNBAR [facility] Cardiac Stre Test Physician Supervision Only Cardiac Stress Test Physician Supervision Only 94020 LUIS MANUEL DUNBAR [facility] ECG 12-Lead ECG 12-Lead 45171 FOSTER YUNG ekg done by Ms. Del Toro results show NSR with sinus arrythmia. [facility] Physician Supervised Injection Intramuscular Physician Supervised Injection Intramuscular 32252 YOVANI GRIFFITHS [facility] Injection, medroxyprogesterone acetate for contraceptive use, 150 mg YOVANI GRIFFITHS [facility] Ultrasound Pelvic SHANNON GIPSON [facility] DOPPLER ECHOCARDIOGRAPHY, PULSED WAVE AND/OR CONTINUOUS WAVE WITH SPECTRAL DISPLAY (LIST SEPARATELY IN ADDITION TO CODES FOR ECHOCARDIOGRAPHIC IMAGING); COMPLETE [facility] ELECTROCARDIOGRAM, ROUTINE ECG WITH AT LEAST 12 LEADS; INTERPRETATION AND REPORT ONLY [facility] REMOVAL OF INTRAUTERINE DEVICE (IUD) [facility] INFUSION, NORMAL SALINE SOLUTION , 1000 CC [facility] DYNAMO REPAIRER ELECTROCARDIOGRAPHIC RECORDING UP TO 48 HOUR,CONT RHYTHM RECORDING & STORAGE;INCLUD RECORDING,SCANNING ANAL W REPORT,REVIEW &INTERPRETATION,A PHYSICIAN/OTHER QUALIFIED HEALTH PORTABLE POWER TOOL REPAIRER [facility] CARDIOVASCULAR STRESS TEST USING MAXIMAL OR SUBMAXIMAL TREADMILL OR BICYCLE EXERCISE, CONTINOUS ELECTROCARDIOGRAPHIC MONITORING, PHARMACOLOGIC STRESS; TRACING ONLY, W/O INTERPRET AND REPORT [facility] CARDIOVASCULAR STRESS TEST USING MAXIMAL OR SUBMAXIMAL TREADMILL OR BICYCLE EXERCISE, CONTINOUS ELECTROCARDIOGRAPHIC MONITORING, PHARMACOLOGIC STRESS; INTERPRETATION AND REPORT ONLY [facility] ELECTROCARDIOGRAM, ROUTINE ECG WITH AT LEAST 12 LEADS; WITH INTERPRETATION AND REPORT [facility] THERAPEUTIC, PROPHYLACTIC OR DIAGNOSTIC INJECTION (SPECIFY SUBSTANCE OR DRUG); SUBCUTANEOUS OR INTRAMUSCULAR [facility] INTRAVENOUS INFUSION, HYDRATION; INITIAL, 31 MINUTES TO 1 HOUR [facility] ASPIRATION CURETTAGE FOLLOWING DELIVERY OR [facility] LAPAROSCOPY [facility] ULTRASOUND, PELVIC (NONOBSTETRIC), REAL TIME WITH IMAGE DOCUMENTATION; COMPLETE [facility] INJECTION, DOLASETRON MESYLATE, 10 MG [facility] ECHOCARDIOGRAPHY,TRANST HORACIC,REAL-TIME W IMAGE DOCUMENTATION (2D),INCLUDES M-MODE RECORDING,WHEN PERFORMED,COMPLETE,WITH SPECTRAL DOPPLER ECHOCARDIOGRAPHY,AND W COLOR FLOW DOPPLER ECHOCARDIOGRAPHY 010 DoD No data available for this section Ambulatory Pharmacy Social History Combined list of available smoking, tobacco, and other social history from Department of Defense and Veterans Affairs facilities. Social History Type Response Date Comment Sourc e This section is an empty soc ial history section. DoD Sexual Orientation Ambula tory Pharmacy Gender identity Ambulator y Pharmacy Female Ambulatory Pha rmacy Assessment and Plan Combined list of future [...] WORKPLACE EXPOSURE ?Comment:?Ordered:??[employer] w/Interpretation + Report [id number]; 12/27/2022 14:00:00 CDT ? Computerized Ophthalmic Imaging Retina [id number]; 12/27/2022 14:00:00 CDT ? Ophthalmological [place] [id number]; 12/27/2022 14:00:00 CDT ? End of Orders ? 02/27/2024 Ambulatory Pharmacy Functional Status Combined list of recent functional and cognitive assessments recorded at Department of Defense and Veterans Affairs ([place]).MI Functional [place] Measurement (FIM) Scale: 1 = Total Assistance (Subject = 0% +), 2 = Maximal Assistance (Subject = 25% +), 3 = Moderate Assistance (Subject = 50% +), 4 = Minimal Assistance (Subject = 75% +), 5 = Supervision, 6 = Modified [place] (Device), 7 = Complete [place] (Timely, Safely). Assessment Date/Time Source Assessment Type Assessment Skill Assessment Score Assessment Details No data available for this section
--- OUTSIDE RECORDS SUMMARY | 2024-02-27 10:02 | XMS_ITS | Clinical Summary ---
Author Organization [facility] Address [address] [place] [address]. [place] [address] [place] [address] Care Team Providers Care Solar Installer Pv Name Role Phone Jacquie Fair NP Primary Care Provider +1 [phone] Allergies Active Allergy Reactions Criticality Noted Date [...] on file Legal Sex Female 9:41 PM ENGLISH AS A SECOND LANGUAGE INSTRUCTOR Gender Identity Female 04/24/2021 2:22 PM ENGLISH AS A SECOND LANGUAGE INSTRUCTOR Sexual Orientation Choose not to disclose 2021 2:22 PM ENGLISH AS A SECOND LANGUAGE INSTRUCTOR Last Filed Vital Signs Vital Sign Reading [...] HEPATITIS C AB NON-REACT ANKIT NON-REACT ANKIT [place] [facility] SIGNAL TO CUTOFF 0.07 <1.00 [facility] Comment: HCV antibody was non-reactive. There is no laboratory evidence of HCV infection. In most cases, no further action is required. However, if recent HCV exposure is suspected, a test for HCV RNA (test code 49853) is suggested. For additional information please refer to http://education.[employer]/faq/KWS68n9 (This link is being provided for informational/ educational purposes only.) 07/31/2022 10:4 9 AM CDT 07/31/2022 10:49 AM CDT Narrative Resulting Agency Comment Performing Organization Information: ?Site ID: [place] ?Name: [facility] ?Address: [address] [place] [address] ?Director: Nicolle Roach MD us Jacquie Idania Weinacht GENERAL HOUSE WORKER LABORATORY Final Res ult [facility] [address] [place] [address], * PAP SMEAR WITH HPV (12/01/2019) 12/01/2019 us Documents Scanned SCANNING Final Result [facility] ONBASE from Last 3 Months or Most Recently Relevant to Health Maintenance Insurance [facility] Care Teams Solar Installer Pv Relationship Specialty Start Date End Date Jacquie Fair NP [address] [place] [address] PCP - General NURSE PRACTITIONER 06/20/21
--- OUTSIDE RECORDS SUMMARY | 2024-02-27 10:02 | XMS_ITS | Encounter Summary ---
Author Organization [facility] Address [address] [place] [address]. [place] [address] [place] [address] Care Team Providers Care Resistance Welding Machine Operator Name Role Phone Jacquie Fair NP Primary Care Provider [phone] [phone] Encounter Details Date Type Department Care Team (Latest Contact Info) Description 07/16/2023 Scan [facility] SR[facility] Scanned, Doc [...] on file Legal Sex Female 9:41 PM EXHIBIT CARPENTER Gender Identity Female 04/24/2021 2:22 PM EXHIBIT CARPENTER Sexual Orientation Choose not to disclose 2021 2:22 PM EXHIBIT CARPENTER documented as of this encounter Plan of Treatment Not on file documented as of this encounter Visit Diagnoses Not on filedocumented in this encounter Additional Health Concerns Assessment Noted Time PHQ-9 Depression Total Score: 14 023 8:28 AM EXHIBIT CARPENTER documented as of this encounter Care Teams Resistance Welding Machine Operator Relationship Specialty Start Date End Date Jacquie Fair NP [address] [place] [address] PCP - General NURSE PRACTITIONER 06/20/21 documented as of this encounter
--- OUTSIDE RECORDS SUMMARY | 2024-02-27 10:02 | XMS_ITS | Encounter Summary ---
Author Organization [facility] Address [address] [place] [address]. [place] [address] [place] [address] Care Team Providers Care Food Safety Field Specialist Name Role Phone Jacquie Fair NP Primary Care Provider [phone] [phone] Reason for Visit * Reason Comments Vomiting Started yest. Headache Onset- 1 wk. Weight loss also. 2 wks. Encounter Details Date Type Department Care Team (Late st Contact Info) Description 10/07/2023 10:20 AM CDT Office Visit [facility] [place] [address] [place] [address] [phone] Terri Altman MD [address] [place] [id number] Vomiting (Started yest. ); Headache (Onset- [...] on file Legal Sex Female 9:41 PM SKI TECHNICIAN Gender Identity Female 04/24/2021 2:22 PM SKI TECHNICIAN Sexual Orientation Choose not to disclose 2021 2:22 PM SKI TECHNICIAN documented as of this encounter Last Filed [...] abdominal cramping. No fevers, chills. Traveled to [place] 2-3 weeks ago. Went to [place] over the weekend. She does not have [...] Total Score: 14 04/13/ 023 8:28 AM SKI TECHNICIAN documented as of this encounter Care Teams Food Safety Field Specialist Relationship Specialty Start Date End Date Jacquie Fair NP [address] [place] [address] PCP - General NURSE PRACTITIONER 06/20/21 documented as of this encounter
--- OUTSIDE RECORDS SUMMARY | 2024-02-27 10:02 | XMS_ITS | Encounter Summary ---
Author Organization [facility] Address [address] [place] [address]. [place] [address] [place] [address] Care Team Providers Care Brimming Machine Operator Name Role Phone Jacquie Fair NP Primary Care Provider [phone] [phone] Encounter Details Date Type Department Care Team [...] on file Legal Sex Female 9:41 PM SHANK BURNISHER Gender Identity Female 04/24/2021 2:22 PM SHANK BURNISHER Sexual Orientation Choose not to disclose 2021 2:22 PM SHANK BURNISHER documented as of this encounter Plan of Treatment Not on file documented as of this encounter Visit Diagnoses Not on filedocumented in this encounter Additional Health Concerns Assessment Noted Time PHQ-9 Depression Total Score: 14 023 8:28 AM SHANK BURNISHER documented as of this encounter Care Teams Brimming Machine Operator Relationship Specialty Start Date End Date Jacquie Fair, TRICIA [address] [place] [address] PCP - General NURSE PRACTITIONER 06/20/21 documented as of this encounter
--- OUTSIDE RECORDS SUMMARY | 2024-02-27 10:02 | XMS_ITS | Encounter Summary ---
Author Organization [facility] Address [address] [place] [address]. [place] [address] [place] [address] Care Team Providers Care Charter Representative Name Role Phone Jacquie Fair NP Primary Care Provider [phone] [phone] Encounter Details Date Type Department Care Team [...] on file Legal Sex Female 9:41 PM EVENTS SOLUTIONS CONSULTANT Gender Identity Female 04/24/2021 2:22 PM EVENTS SOLUTIONS CONSULTANT Sexual Orientation Choose not to disclose 2021 2:22 PM EVENTS SOLUTIONS CONSULTANT documented as of this encounter Plan of Treatment Not on file documented as of this encounter Visit Diagnoses Not on filedocumented in this encounter Additional Health Concerns Assessment Noted Time PHQ-9 Depression Total Score: 14 023 8:28 AM EVENTS SOLUTIONS CONSULTANT documented as of this encounter Care Teams Charter Representative Relationship Specialty Start Date End Date Jacquie Fair NP [address] [place] [address] PCP - General NURSE PRACTITIONER 06/20/21 documented as of this encounter
--- OUTSIDE RECORDS SUMMARY | 2024-02-27 10:02 | XMS_ITS | Encounter Summary ---
Author Organization [facility] Address [address] [place] [address]. [place] [address] [place] [address] Care Team Providers Care Wrecking Mechanic Name Role Phone Jacquie Fair NP Primary Care Provider [phone] [phone] Encounter Details Date Type Department Care Team [...] on file Legal Sex Female 9:41 PM SUPPORT STAFF Gender Identity Female 04/24/2021 2:22 PM SUPPORT STAFF Sexual Orientation Choose not to disclose 2021 2:22 PM SUPPORT STAFF documented as of this encounter Plan of Treatment Not on file documented as of this encounter Visit Diagnoses Not on filedocumented in this encounter Additional Health Concerns Assessment Noted Time PHQ-9 Depression Total Score: 14 023 8:28 AM SUPPORT STAFF documented as of this encounter Care Teams Wrecking Mechanic Relationship Specialty Start Date End Date Jacquie Fair, TRICIA [address] [place] [address] PCP - General NURSE PRACTITIONER 06/20/21 documented as of this encounter
--- OUTSIDE RECORDS SUMMARY | 2024-02-27 10:02 | XMS_ITS | Encounter Summary ---
Author Organization [facility] Address [address] [place] [address]. [place] [address] [place] [address] Care Team Providers Care Driver'S License Reviewing Officer Name Role Phone Jacquie Fair NP Primary Care Provider +1 [phone] Encounter Details Date Type Department Care Team [...] on file Legal Sex Female 9:41 PM DIAL PAINTER Gender Identity Female 04/24/2021 2:22 PM DIAL PAINTER Sexual Orientation Choose not to disclose 2021 2:22 PM DIAL PAINTER documented as of this encounter Plan of Treatment Not on file documented as of this encounter Visit Diagnoses Not on filedocumented in this encounter Additional Health Concerns Assessment Noted Time PHQ-9 Depression Total Score: 14 023 8:28 AM DIAL PAINTER documented as of this encounter Care Teams Driver'S License Reviewing Officer Relationship Specialty Start Date End Date Jacquie Fair, TRICIA [address] [place] [address] PCP - General NURSE PRACTITIONER 06/20/21 documented as of this encounter
--- OUTSIDE RECORDS SUMMARY | 2024-02-27 10:02 | XMS_ITS | Encounter Summary ---
Author Organization [facility] Address [address] [place] [address]. [place] [address] [place] [address] Care Team Providers Care Automation Developer Name Role Phone Jacquie Fair NP Primary Care Provider +1 -[phone] Reason for Referral * Consultation (Routine) - Closed Specialty Diagnoses / Procedures Referred By Contact Referred To Contact CARDIOVASCULAR DISEASE Diagnoses Syncope and collapse Procedures OFFICE/OUTPATIENT NEW LOW MDM 30-44 MINUTES OFFICE/OUTPT VISIT,NEW,LEVL IV OFFICE/OUTPT VISIT,NEW,LEVL V OFFICE/OUTPT VISIT,EST,LEVL III OFFICE/OUTPT VISIT,EST,LEVL IV OFFICE/OUTPT VISIT,EST,LEVL V Jacquie Fair NP [address] [place] [address] Phone: tel: fax: Isac Allen MD [address] [facility] [address] [place] [address] Phone: tel: fax: Referral ID Status Reason Start Date Expiration Date V isits Requested Visits Authorized [id number] Closed Specialty Services 10/09/2023 10/08/2024 100 100 Scheduling Instructions Appt 10/21/23 Encounter Details Date Type Department Care Team (Late st Contact Info) Description 10/09/2023 Orders Only [facility] Medical Group Family Medicine - [place] [address] [place] [address] [address] [place] [address] Jacquie Fair NP [address] [place] [address] Social History Tobacco Use Types Packs/Day Years [...] on file Legal Sex Female 9:41 PM ELECTRICIAN STATION ASSISTANT Gender Identity Female 04/24/2021 2:22 PM ELECTRICIAN STATION ASSISTANT Sexual Orientation Choose not to disclose 2021 2:22 PM ELECTRICIAN STATION ASSISTANT documented as of this encounter Plan of Treatment Scheduled Referrals Name Type Priority Associated Diagnoses Orde r Schedule Ambulatory referral to Cardiology, Adult (OTHER) Referral Routine Syncope and collapse Ordered: 10/09/2023 documented as of this encounter Visit Diagnoses Diagnosis Syncope and collapse- Primary documented in this encounter Additional Health Concerns Assessment Noted Time PHQ-9 Depression Total Score: 14 023 8:28 AM ELECTRICIAN STATION ASSISTANT documented as of this encounter Care Teams Automation Developer Relationship Specialty Start Date End Date Jacquie Fair NP [address] [place] [address] PCP - General NURSE PRACTITIONER 06/20/21 documented as of this encounter
--- OUTSIDE RECORDS SUMMARY | 2024-02-27 10:03 | XMS_ITS | Encounter Summary ---
Author Organization [facility] Address [address] [place] [address]. [place] [address] [place] [address] Care Team Providers Care Associate Professor Of Medicine Name Role Phone Jacquie Fair NP Primary Care Provider [phone] [phone] Reason for Visit * Reason Comments PPD Patient presents for a PPD read Encounter Details Date Type Department Care Team (Latest Contact Info) Description 08/30/2022 11:00 AM CDT Allied Health/Nurse Visit [facility] Medical Group Family Medicine - [place] [address] [id number] Jacquie Fair, TRICIA [address] [place] [address] PPD (Patient presents for a PPD read) [...] on file Legal Sex Female 9:41 PM PACKAGE HANDLER Gender Identity Female 04/24/2021 2:22 PM PACKAGE HANDLER Sexual Orientation Choose not to disclose 2021 2:22 PM PACKAGE HANDLER documented as of this encounter Plan of Treatment Not on file documented as of this encounter Visit Diagnoses Diagnosis Encounter for PPD skin test reading- Primary documented in this encounter Additional Health Concerns Assessment Noted Time PHQ-9 Depression Total Score: 14 023 8:28 AM PACKAGE HANDLER documented as of this encounter Care Teams Associate Professor Of Medicine Relationship Specialty Start Date End Date Jacquie Fair NP [address] [place] [address] PCP - General NURSE PRACTITIONER 06/20/21 documented as of this encounter
--- OUTSIDE RECORDS SUMMARY | 2024-02-27 10:03 | XMS_ITS | Encounter Summary ---
Author Organization [facility] Address [address] [place] [address]. [place] [address] [place] [address] Care Team Providers Care Geosciences Professor Name Role Phone Jacquie Fair NP Primary Care Provider +1 [phone] Encounter Details Date Type Department Care Team [...] on file Legal Sex Female 9:41 PM STONE PAVER Gender Identity Female 04/24/2021 2:22 PM STONE PAVER Sexual Orientation Choose not to disclose 2021 2:22 PM STONE PAVER COVID-19 Exposure Response Date Recorded In the [...] Depression Total Score: 14 023 8:28 AM STONE PAVER documented as of this encounter Care Teams Geosciences Professor Relationship Specialty Start Date End Date Jacquie Fair NP [address] [place] [address] PCP - General NURSE PRACTITIONER 06/20/21 documented as of this encounter
--- OUTSIDE RECORDS SUMMARY | 2024-02-27 10:03 | XMS_ITS | Encounter Summary ---
Author Organization [facility] Address [address] [place] [address]. [place] [address] [place] [address] Care Team Providers Care Gliding Pilot Instructor Name Role Phone Jacquie Fair NP Primary Care Provider +1 -[phone] Reason for Referral * Consultation (Urgent) - Closed Specialty Diagnoses / Procedures Referred By Contac t Referred To Contact RHEUMATOLOGY Diagnoses Elevated antinuclear antibody (MEKA) level Chronic joint pain Fibromyalgia Hypermobile joint syndrome of multiple sites Procedures OFFICE/OUTPT VISIT,NEW,LEVL III OFFICE/OUTPT VISIT,NEW,LEVL IV OFFICE/OUTPT VISIT,NEW,LEVL V OFFICE/OUTPT VISIT,EST,LEVL III OFFICE/OUTPT VISIT,EST,LEVL IV OFFICE/OUTPT VISIT,EST,LEVL V Jacquie Fair NP [address] [place] [address] Phone: tel: fax: Dora Velasquez MD [address] [facility] [address] [place] [address] Phone: tel: fax: Referral ID Status Reason Start Date Expiration Date V isits Requested Visits Authorized [id number] Closed Specialty Services 08/09/2022 08/10/2023 99 99 Scheduling Instructions Please refer pt to Dr. Sharlene Back with [facility]. Encounter Details Date Type Department Care Team (Late st Contact Info) Description 08/09/2022 Orders Only [facility] Medical Group Family Medicine - [place] [address] [facility] [address] [place] [address] Jacquie Fair NP [address] [place] [address] Social History Tobacco Use Types Packs/Day Years [...] on file Legal Sex Female 9:41 PM REGISTERED ART THERAPIST Gender Identity Female 04/24/2021 2:22 PM REGISTERED ART THERAPIST Sexual Orientation Choose not to disclose 2021 2:22 PM REGISTERED ART THERAPIST COVID-19 Exposure Response Date Recorded In the [...] Depression Total Score: 14 023 8:28 AM REGISTERED ART THERAPIST documented as of this encounter Care Teams Gliding Pilot Instructor Relationship Specialty Start Date End Date Jacquie Fair NP [address] [place] [address] PCP - General NURSE PRACTITIONER 06/20/21 documented as of this encounter
--- OUTSIDE RECORDS SUMMARY | 2024-02-27 10:03 | XMS_ITS | Encounter Summary ---
Author Organization [facility] Address [address] [place] [address]. [place] [address] [place] [address] Care Team Providers Care Air Cargo Agent Name Role Phone Jacquie Fair NP Primary Care Provider [phone] [phone] Encounter Details Date Type Department Care Team (Late st Contact Info) Description 04/29/2023 [employer] Message Enc [facility] Medical Group Family Medicine [facility] [address] [facility] [address] [place], [place] [id number] [facility] Provider medication Social History Tobacco [...] on file Legal Sex Female 9:41 PM EXCHANGE ENGINEER Gender Identity Female 04/24/2021 2:22 PM EXCHANGE ENGINEER Sexual Orientation Choose not to disclose 2021 2:22 PM EXCHANGE ENGINEER documented as of this encounter Plan of Treatment Not on file documented as of this encounter Visit Diagnoses Not on filedocumented in this encounter Additional Health Concerns Assessment Noted Time PHQ-9 Depression Total Score: 14 023 8:28 AM EXCHANGE ENGINEER documented as of this encounter Care Teams Air Cargo Agent Relationship Specialty Start Date End Date Jacquie Fair, CASSEROLE PREPARER [address] [place], [place] [id number] PCP - General NURSE PRACTITIONER 06/20/21 documented as of this encounter
--- OUTSIDE RECORDS SUMMARY | 2024-02-27 10:03 | XMS_ITS | Encounter Summary ---
Author Organization [facility] Address [address] [place] [address]. [place] [address] [place] [address] Care Team Providers Care Insole Beveler Name Role Phone Jacquie Fair NP Primary Care Provider [phone] [phone] Encounter Details Date Type Department Care Team (Late st Contact Info) Description 06/25/2023 Sarta Message [facility] Medical Group Multispecialty Care - [facility] [address] [facility], [address] [place] [address] [employer], [facility] Provider Appointment Social History [...] on file Legal Sex Female 9:41 PM BROOMCORN PRESS FEEDER Gender Identity Female 04/24/2021 2:22 PM BROOMCORN PRESS FEEDER Sexual Orientation Choose not to disclose 2021 2:22 PM BROOMCORN PRESS FEEDER documented as of this encounter Plan of Treatment Not on file documented as of this encounter Visit Diagnoses Not on filedocumented in this encounter Additional Health Concerns Assessment Noted Time PHQ-9 Depression Total Score: 14 023 8:28 AM BROOMCORN PRESS FEEDER documented as of this encounter Care Teams Insole Beveler Relationship Specialty Start Date End Date Jacquie Fair NP [address] [place] [address] PCP - General NURSE PRACTITIONER 06/20/21 documented as of this encounter
--- OUTSIDE RECORDS SUMMARY | 2024-02-27 10:03 | XMS_ITS | Encounter Summary ---
Author Organization [facility] Address [address] [place] [address]. [place] [address] [place] [address] Care Team Providers Care Data Storage Specialist Name Role Phone Jacquie Fair NP Primary Care Provider [phone] [phone] Reason for Visit * Reason Onset Date Comments Results 06/21/2023 MRI brain Encounter Details Date Type Department Care Team (Late st Contact Info) Description 06/21/2023 Telephone [facility] Medical Group Family Medicine - [place] [address] [facility] [address] [place], [place] [address] Jacquie Fair, TRICIA [address] [place], [place] [address] Results (MRI brain) Social History Tobacco Use [...] on file Legal Sex Female 9:41 PM HAM ROLLING MACHINE OPERATOR Gender Identity Female 04/24/2021 2:22 PM HAM ROLLING MACHINE OPERATOR Sexual Orientation Choose not to disclose 2021 2:22 PM HAM ROLLING MACHINE OPERATOR documented as of this encounter Progress [...] CDT We received MRI brain/brain stem from [place] [facility]. Impression: Normal Brain I will place on Jacquie's desk for review documented in this encounter Plan of Treatment Not on file documented as of this encounter Visit Diagnoses Not on filedocumented in this encounter Additional Health Concerns Assessment Noted Time PHQ-9 Depression Total Score: 14 023 8:28 AM HAM ROLLING MACHINE OPERATOR documented as of this encounter Care Teams Data Storage Specialist Relationship Specialty Start Date End Date Jacquie Fair NP [address] [place] [address] PCP - General NURSE PRACTITIONER 06/20/21 documented as of this encounter
--- OUTSIDE RECORDS SUMMARY | 2024-02-27 10:03 | XMS_ITS | Encounter Summary ---
Author Organization [facility] Address [address] [place] [address]. [place] [address] [place] [address] Care Team Providers Care Water Softener Servicer And Installer Name Role Phone Jacquie Fair NP Primary Care Provider [phone] -[phone] Reason for Referral * Consultation (Routine) - Authorized Specialty Diagnoses / Procedures Referred By Contac t Referred To Contact CARDIOVASCULAR DISEASE Diagnoses Syncope, unspecified syncope type Procedures OFFICE/OUTPATIENT NEW LOW MDM 30-44 MINUTES OFFICE/OUTPT VISIT,NEW,LEVL IV OFFICE/OUTPT VISIT,NEW,LEVL V OFFICE/OUTPT VISIT,EST,LEVL III OFFICE/OUTPT VISIT,EST,LEVL IV OFFICE/OUTPT VISIT,EST,LEVL V Jacquie Fair NP [address] [place] [address] Phone: tel: fax: Isac Allen MD [address] [place] [address] Phone: tel: fax: Referral ID Status Reason Start Date Expiration Date Visits Requested Visits Authorized [id number] Authorized Specialty Services 06/18/2023 06/02/2024 99 99 Reason for Visit * Reason Onset Date Comments Referral 06/03/2023 Encounter Details Date Type Department Care Team (Late st Contact Info) Description 06/03/2023 Telephone [facility] Medical Group Family Medicine - [place] [address] [place] [address] [address] [place] [address] Jacquie Fair NP [address] [place] [address] Referral Social History Tobacco Use Types Packs/Day [...] on file Legal Sex Female 9:41 PM DIVERSIFIED CROPS SUPERVISOR Gender Identity Female 04/24/2021 2:22 PM DIVERSIFIED CROPS SUPERVISOR Sexual Orientation Choose not to disclose 2021 2:22 PM DIVERSIFIED CROPS SUPERVISOR documented as of this encounter Progress Notes [...] Depression Total Score: 14 023 8:28 AM DIVERSIFIED CROPS SUPERVISOR documented as of this encounter Care Teams Water Softener Servicer And Installer Relationship Specialty Start Date End Date Jacquie Fair NP [address] [place] [address] PCP - General NURSE PRACTITIONER 06/20/21 documented as of this encounter
--- OUTSIDE RECORDS SUMMARY | 2024-02-27 10:03 | XMS_ITS | Encounter Summary ---
Author Organization [facility] Address [address] [place] [address]. [place] [address] [place] [address] Care Team Providers Care Natural Resources Manager Name Role Phone Jacquie Fair NP Primary Care Provider +1 -[phone] Reason for Visit * Reason Comments Lab [...] on file Legal Sex Female 9:41 PM LAY OUT DRAFTER Gender Identity Female 04/24/2021 2:22 PM LAY OUT DRAFTER Sexual Orientation Choose not to disclose 2021 2:22 PM LAY OUT DRAFTER documented as of this encounter Plan of [...] Depression Total Score: 14 023 8:28 AM LAY OUT DRAFTER documented as of this encounter Care Teams Natural Resources Manager Relationship Specialty Start Date End Date Jacquie Fair NP [address] [place] [address] PCP - General NURSE PRACTITIONER 06/20/21 documented as of this encounter
--- OUTSIDE RECORDS SUMMARY | 2024-02-27 10:03 | XMS_ITS | Encounter Summary ---
Author Organization [facility] Address [address] [place] [address]. [place] [address] [place] [address] Care Team Providers Care Rehab Manager Name Role Phone Jacquie Fair NP Primary Care Provider +1 -[phone] Encounter Details Date Type Department Care Team [...] on file Legal Sex Female 9:41 PM BREAST SURGEON Gender Identity Female 04/24/2021 2:22 PM BREAST SURGEON Sexual Orientation Choose not to disclose 2021 2:22 PM BREAST SURGEON documented as of this encounter Plan of Treatment Not on file documented as of this encounter Visit Diagnoses Not on filedocumented in this encounter Additional Health Concerns Assessment Noted Time PHQ-9 Depression Total Score: 14 023 8:28 AM BREAST SURGEON documented as of this encounter Care Teams Rehab Manager Relationship Specialty Start Date End Date Jacquie Fair NP [address] [place] [address] PCP - General NURSE PRACTITIONER 06/20/21 documented as of this encounter
--- OUTSIDE RECORDS SUMMARY | 2024-02-27 10:03 | XMS_ITS | Encounter Summary ---
Author Organization [facility] Address [address] [place] [address]. [place] [address] [place] [address] Care Team Providers Care Music Professionals Name Role Phone Jacquie Fair NP Primary Care Provider +1 -[phone] Reason for Visit * Reason Onset Date Comments Referral 07/27/2022 Encounter Details Date Type Department Care Team (Late st Contact Info) Description 07/27/2022 Telephone [facility] Medical Group Family Medicine - [place] [address] [facility] [address] [place] [id number] Jacquie Fair NP [address] [place] [address] Referral Social History Tobacco Use Types [...] on file Legal Sex Female 9:41 PM CLOTH FINISHER Gender Identity Female 04/24/2021 2:22 PM CLOTH FINISHER Sexual Orientation Choose not to disclose 2021 2:22 PM CLOTH FINISHER COVID-19 Exposure Response Date Recorded In the [...] a new once she will go to [facility] in [place]. * Marley Bills MA - 07/31/2022 3:30 PM CDT I lmovm to call office. * Marley Bills MA - 07/27/2022 1:59 PM CDT I called patient 07/26/22 and 07/27/22. No answer and vm full. I will send a [employer] chat message. * Marley Bills MA - 07/27/2022 1:59 PM CDT Images from the original note were not included. RE: Referral Received: Yesterday TRICIA Rogres MA Can you let the referral center know that patient is needing an echocardiogram prior to seeing the genetic doctor I referred her too. I do recall patient stated that she had one done not [place]. Can you find out where patient had [...] Depression Total Score: 14 023 8:28 AM CLOTH FINISHER documented as of this encounter Care Teams Music Professionals Relationship Specialty Start Date End Date Jacquie Fair NP [address] [place] [address] PCP - General NURSE PRACTITIONER 06/20/21 documented as of this encounter
--- OUTSIDE RECORDS SUMMARY | 2024-02-27 10:03 | XMS_ITS | Encounter Summary ---
Author Organization [facility] Address [address] [place] [address]. [place] [address] [place] [address] Care Team Providers Care Furs Salesperson Name Role Phone Jacquie Fair NP Primary Care Provider +1 -[phone] Encounter Details Date Type Department Care Team (Late st Contact Info) Description 09/10/[address] Message Enc [facility] Medical Group Family Medicine - [place] [address] [facility] [address] [place], [place] [address] Jacquie Fair NP [address] [place] [address] Shot records Social History Tobacco Use Types [...] on file Legal Sex Female 9:41 PM BUSINESS LIAISON OFFICER Gender Identity Female 04/24/2021 2:22 PM BUSINESS LIAISON OFFICER Sexual Orientation Choose not to disclose 2021 2:22 PM BUSINESS LIAISON OFFICER documented as of this encounter Plan of Treatment Not on file documented as of this encounter Visit Diagnoses Not on filedocumented in this encounter Additional Health Concerns Assessment Noted Time PHQ-9 Depression Total Score: 14 023 8:28 AM BUSINESS LIAISON OFFICER documented as of this encounter Care Teams Furs Salesperson Relationship Specialty Start Date End Date Jacquie Fair NP [address] [place] [address] PCP - General NURSE PRACTITIONER 06/20/21 documented as of this encounter
--- OUTSIDE RECORDS SUMMARY | 2024-02-27 10:03 | XMS_ITS | Encounter Summary ---
Author Organization [facility] Address [address] [place] [address]. [place] [address] [place] [address] Care Team Providers Care Accounts Payable Professional Name Role Phone Jacquie Fair NP Primary Care Provider +1 [phone] Encounter Details Date Type Department Care Team [...] on file Legal Sex Female 9:41 PM GLOBAL COMPENSATION ANALYST Gender Identity Female 04/24/2021 2:22 PM GLOBAL COMPENSATION ANALYST Sexual Orientation Choose not to disclose 2021 2:22 PM GLOBAL COMPENSATION ANALYST documented as of this encounter Plan of Treatment Not on file documented as of this encounter Visit Diagnoses Not on filedocumented in this encounter Additional Health Concerns Assessment Noted Time PHQ-9 Depression Total Score: 14 023 8:28 AM GLOBAL COMPENSATION ANALYST documented as of this encounter Care Teams Accounts Payable Professional Relationship Specialty Start Date End Date Jacquie Fair NP [address] [place] [address] PCP - General NURSE PRACTITIONER 06/20/21 documented as of this encounter
--- OUTSIDE RECORDS SUMMARY | 2024-02-27 10:03 | XMS_ITS | Encounter Summary ---
Author Organization [facility] Address [address] [place] [address]. [place] [address] [place] [address] Care Team Providers Care Soap Grinder Name Role Phone Jacquie Fair NP Primary Care Provider +1 [phone] Reason for Visit * Reason Comments Follow Up Patient presents to follow up on HEDS Encounter Details Date Type Department Care Team (Late Contact Info) Description 08/28/2022 1:40 PM CDT Office Visit [facility] Medical Group Family Medicine [facility] [address] [address] Jacquie Fair, TRICIA [address] [place] [address] [place] [id number] Follow Up (Patient presents to follow up [...] on file Legal Sex Female 9:41 PM INSTRUMENTATION CHEMIST Gender Identity Female 04/24/2021 2:22 PM INSTRUMENTATION CHEMIST Sexual Orientation Choose not to disclose 2021 2:22 PM INSTRUMENTATION CHEMIST documented as of this encounter Last Filed [...] / Stillbirths Paternal Grandmother Matthew Diabetes Brother [place] Miscarriages / Stillbirths Sister Juliet ROS: Review [...] AM CDT Performed at: ??01 - [facility] [address] [facility], [place], [place] ??[id number] Fiction And Nonfiction Author: David Edmond PhD, Phone: ??[phone] Jacquie Fair PASTRY DECORATOR LABORATORY Final Res ult [facility] [address] [place] [address] [facility] * RUBEOLA IGG (08/28/2022 4:15 PM CDT) RUBEOLA IGG 19.2 Immune >16 AU/mL [facility] 1 Comment: ? Negative ?<13.5 ? Equivocal 13.5 - 16.4 ? Positive ?>16.4 Presence of antibodies to Rubeola is presumptive evidence of immunity except when acute infection is suspected. 08/28/2022 4:15 PM CDT 08/28/2022 Narrative [facility] - 08/29/2022 7:07 AM CDT Performed at: ??01 - [facility] ??[id number] Fiction And Nonfiction Author: David Edmond PhD, Phone: ??[phone] Jacquie Fair PASTRY DECORATOR LABORATORY Final Res ult Performing Organization Address [facility] de Phone Number [facility] [address] [place] [address] [facility] 1 * VARICELLA ZOSTER IGG (08/28/2022 4:15 PM CDT) Pathologist [facility] VARICELLA ZOSTER IGG EIA 1,074 Immune >16 [...] 8:10 AM CDT Performed at: ??01 - [facility] ??[id number] Fiction And Nonfiction Author: David Edmond PhD, Phone: ??[phone] Jacquie Fair PASTRY DECORATOR LABORATORY Final Res ult Performing Organization Address [facility] de Phone Number [facility] [address] [place] [address] [facility] 1 * TB INTRADERMAL TEST (BACK OFFICE) (08/28/2022 3:37 PM CDT) MM INDURATION 0mm PPD SKIN TEST negative NOT REQUIRED 08/28/2022 3:37 PM CDT Jacquie Fair NP MICROBIOLOGY - GENERAL OR DERABLES Final Result * MG/PCCL UDS W CONF (08/28/2022 1:50 PM CDT) RESULT SUMMARY [facility] Comment: ?Prescribed ?Prescribed ?Not Prescribed ?Consistent ?Inconsistent ?Inconsistent ?Prescribed no testing ordered: ?? Zolpidem PRESCRIBED DRUG 1 (U) Zolpidem [facility] FENTANYL SCREEN (U) NEGATIVE <0.5 ng/mL [facility] MORPHINE (U) NEGATIVE <10 ng/mL [facility] DESMETHYLTRAMADOL (U) NEGATIVE <100 ng/mL [facility] TRAMADOL (U) NEGATIVE <100 ng/mL [facility] TRAMADOL COMMENTS [facility] Comment:See LDT Notes AMPHETAMINES PM NEGATIVE [...] PM (U) NEGATIVE <100 ng/mL [facility] CREATININE RANDOM (U) 36.4 > or = 20.0 mg/dL [facility] pH PM (U) 6.5 4.5 - 9.0 [facility] ALEENA KENNY OXIDANT NEGATIVE <200 mcg/mL [facility] ALEENA KENNY Note [facility] Comment: This drug testing is for medical treatment only. Analysis was performed as non-forensic testing and these results should be used only by healthcare providers to render diagnosis or treatment, or to monitor progress of medical conditions. LDT Notes: Confirmation tests were developed and their analytical performance characteristics have been determined by [facility]. It has not been cleared or approved by the FDA. This assay has been validated pursuant to the CLIA regulations and is used for clinical purposes. medMATCH(R) enables providers to identify if drug use is consistent or inconsistent with a corresponding prescribed medication(s) list. Healthcare Providers needing Interpretation assistance, please contact us at [phone] ( ) M-F, 8am to 10pm EST URINE SPECIMEN / Unknown 08/28/2022 1:50 PM CDT 08/29/2022 3:25 AM CDT Narrative Resulting Agency Comment Performing Organization Information: ?Site ID: ?Name: [facility] ?Address: [address] [place] [id number] ?Director: Anselmo Resendez ?Site ID: ID ?Name: [facility] ?Address: [address] [place] [address] ?Director: Nicolle Roach MD us Jacquie Fair NP URINE ORDERABLES Final Re sult [facility] - [facility] [address] [place] [address], [facility] ALEENA KENNY [address] [place] [address] documented in this encounter Visit Diagnoses Diagnosis [...] Depression Total Score: 14 023 8:28 AM INSTRUMENTATION CHEMIST documented as of this encounter Care Teams Soap Grinder Relationship Specialty Start Date End Date Jacquie Fair NP [address] [place] [address] PCP - General NURSE PRACTITIONER 06/20/21 documented as of this encounter
--- OUTSIDE RECORDS SUMMARY | 2024-02-27 10:03 | XMS_ITS | Encounter Summary ---
Author Organization [facility] Address [address] [place] [address]. [place] [address] [place] [address] Care Team Providers Care Geotechnical Laboratory Technician Name Role Phone Jacquie Fair NP Primary Care Provider +1 [phone] Reason for Visit * Reason Comments MRI [...] on file Legal Sex Female 9:41 PM IT SALES CONSULTANT Gender Identity Female 04/24/2021 2:22 PM IT SALES CONSULTANT Sexual Orientation Choose not to disclose 2021 2:22 PM IT SALES CONSULTANT documented as of this encounter Plan [...] Depression Total Score: 14 023 8:28 AM IT SALES CONSULTANT documented as of this encounter Care Teams Geotechnical Laboratory Technician Relationship Specialty Start Date End Date Jacquie Fair NP [address] [place] [address] PCP - General NURSE PRACTITIONER 06/20/21 documented as of this encounter
--- OUTSIDE RECORDS SUMMARY | 2024-02-27 10:03 | XMS_ITS | Encounter Summary ---
Author Organization [facility] Address [address] [place] [address]. [place] [address] [place] [address] Care Team Providers Care Glue Line Operator Name Role Phone Jacquie Fair NP Primary Care Provider +1 [phone] Reason for Referral * Consultation (Urgent) - Authorized Specialty Diagnoses / Procedures Referred By Nir small Referred To Contact NEUROLOGY Diagnoses Loss of consciousness ([facility]) Facial droop Procedures OFFICE/OUTPATIENT NEW LOW MDM 30-44 MINUTES OFFICE/OUTPT VISIT,NEW,LEVL IV OFFICE/OUTPT VISIT,NEW,LEVL V OFFICE/OUTPT VISIT,EST,LEVL III OFFICE/OUTPT VISIT,EST,LEVL IV OFFICE/OUTPT VISIT,EST,LEVL V Jacquie Fair NP [address] [place] [address] Phone: tel: fax: [facility] Medical Group Multispecialty Care - [facility] [address] [facility], [address] [place] [address] Phone: tel: Referral ID Status Reason Start Date Expiration Date Visits Requested Visits Authorized [id number] Authorized Specialty Services 06/26/2023 07/12/2024 99 99 * Imaging (Routine) - Closed Specialty Diagnoses / Procedures Referred By Nir small Referred To Contact RADIOLOGY Diagnoses Syncope, unspecified syncope type Loss of consciousness ([facility]) Facial droop Procedures MRI BRAIN WWO CON Jacquie Fair NP [address] [place] [address] [place] [address] Phone: tel: fax: [facility] [address] [facility] [address] [place] [address] Phone: tel: fax: Referral ID Status Reason Start Date Expiration Date Visits Re quested Visits Authorized [id number] Closed 06/06/2023 06/05/2024 1 1 * Consultation (Urgent) - New Request Specialty Diagnoses / Procedures Referred By Nir t Referred To Contact CARDIOLOGY / Cardiology Diagnoses Syncope, unspecified syncope type Loss of consciousness ([facility]) Procedures OFFICE/OUTPATIENT NEW LOW MDM 30-44 MINUTES OFFICE/OUTPT VISIT,NEW,LEVL IV OFFICE/OUTPT VISIT,NEW,LEVL V OFFICE/OUTPT VISIT,EST,LEVL III OFFICE/OUTPT VISIT,EST,LEVL IV OFFICE/OUTPT VISIT,EST,LEVL V Jacquie Fair NP [address] [place] [address] [place] [address] Phone: tel: fax: [facility], [place] [address] [place] [address] Phone: tel: fax: Referral ID Status Reason Start Date Expiration Date Visits Requested Visits Authorized [id number] New Request Specialty Services 06/06/2023 07/05/2024 [address] Green goes to [place] please schedule pt with her. Reason for Visit * Reason Comments Blood Pressure Patient presents wit h c/o low blood pressure and light headed Encounter Details Date Type Department Care Team (Late st Contact Info) Description 06/06/2023 3:00 PM CDT Office Visit [facility] Medical Group Family Medicine - [place] [address] [facility] [address] [place] [address] Jacquie Fair NP [address] [place] [address] [place] [address] Blood Pressure (Patient presents with c/o low [...] on file Legal Sex Female 9:41 PM PRODUCTION ENGINEER TRACK Gender Identity Female 04/24/2021 2:22 PM PRODUCTION ENGINEER TRACK Sexual Orientation Choose not to disclose 2021 2:22 PM PRODUCTION ENGINEER TRACK documented as of this encounter Last Filed [...] was taken to the emergemcy room at [facility]. She reports that she loss consciousness while [...] she could be seen sooner by a weed inspector with [facility]. She is having anterior right [...] deficit hyperactivity disorder) Anemia 2006 Anxiety Asthma ([facility]) 2003 Back spasm 2009 Blood transfusion [...] / Stillbirths Paternal Grandmother Matthew Diabetes Brother [place] Miscarriages / Stillbirths Sister Juliet ROS: Review [...] Adult (OTHER) Ambulatory referral to Neurosurgery ([facility]) MRI BRAIN WWO CON MRI BRAIN WWO [...] if she can get in with another weed inspector in our group sooner. Will obtain xray [...] the day of the encounter. This includes [id number] and dvq-rccb-cs-face time I provided on the day of [...] Syncope, unspecified syncope type Loss of consciousness ([facility]) Facial droop Expected: 06/06/2023, Expires: 06/05/2024 XR SHOULDER RT MIN 2V Imaging Routine Acute pain of right shoulder Expected: 06/06/2023, Expires: 06/05/2024 Scheduled Referrals Name Type Priority Associated Diagnoses Orde r Schedule Ambulatory referral to Cardiology, Adult (OTHER) Referral Routine Syncope, unspecified syncope type Loss of consciousness ([facility]) Ordered: 06/06/2023 Ambulatory referral to Neurology ([facility]) Referral Routine Loss of consciousness ([facility]) Facial droop Ordered: 06/12/2023 documented as of this encounter Visit Diagnoses Diagnosis Syncope, unspecified syncope type- Primary Loss of consciousness ([facility]) Other alteration of consciousness Facial droop Facial weakness 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
--- OUTSIDE RECORDS SUMMARY | 2024-02-27 10:03 | XMS_ITS | Encounter Summary ---
Author Organization [facility] Address [address] [place] [address]. [place] [address] [place] [address] Care Team Providers Care Showroom Salesperson Name Role Phone Jacquie Fair FINANCIAL MANAGEMENT Primary Care Provider +1 -[phone] Encounter Details Date Type Department Care Team (Late st Contact Info) Description 06/18/2023 [facility] Message [facility] Medical Group Family Medicine [place] [address] [facility] [address] [place], [place] [id number] [facility] Provider Neurology referral Social History Tobacco Use [...] on file Legal Sex Female 9:41 PM PAINT MIXER HAND Gender Identity Female 04/24/2021 2:22 PM PAINT MIXER HAND Sexual Orientation Choose not to disclose 2021 2:22 PM PAINT MIXER HAND documented as of this encounter Plan of Treatment Not on file documented as of this encounter Visit Diagnoses Not on filedocumented in this encounter Additional Health Concerns Assessment Noted Time PHQ-9 Depression Total Score: 14 023 8:28 AM PAINT MIXER HAND documented as of this encounter Care Teams Showroom Salesperson Relationship Specialty Start Date End Date Jacquie Fair, FINANCIAL MANAGEMENT [address] [place] [address] PCP - General NURSE PRACTITIONER 06/20/21 documented as of this encounter
--- OUTSIDE RECORDS SUMMARY | 2024-02-27 10:03 | XMS_ITS | Encounter Summary ---
Author Organization [facility] Address [address] [place] [address]. [place] [address] [place] [address] Care Team Providers Care Armature Straightener Name Role Phone Jacquie Fair NP Primary Care Provider +1 -[phone] Reason for Visit * Reason Onset Date Comments Medication Request 10/02/2022 Encounter Details Date Type Department Care Team (Late st Contact Info) Description 10/02/2022 Telephone [facility] Medical Group Family Medicine - [place] [address] [phone] Jacquie Fair NP [address] [place] [address] [place] [address] Medication Request Social History Tobacco Use [...] on file Legal Sex Female 9:41 PM ROBOT PROGRAMMER Gender Identity Female 04/24/2021 2:22 PM ROBOT PROGRAMMER Sexual Orientation Choose not to disclose 2021 2:22 PM ROBOT PROGRAMMER documented as of this encounter Progress Notes [...] Depression Total Score: 14 023 8:28 AM ROBOT PROGRAMMER documented as of this encounter Care Teams Armature Straightener Relationship Specialty Start Date End Date Jacquie Fair NP [address] [place] [address] PCP - General NURSE PRACTITIONER 06/20/21 documented as of this encounter
--- OUTSIDE RECORDS SUMMARY | 2024-02-27 10:03 | XMS_ITS | Encounter Summary ---
Author Organization [facility] Address [address] [place] [address]. [place] [address] [place] [address] Care Team Providers Care Tire Retreader Name Role Phone Jacquie Fair NP Primary Care Provider +1 [phone] Reason for Visit * Reason Onset Date Comments Appointment Request 06/21/2023 Encounter Details Date Type Department Care Team (Late st Contact Info) Description 06/21/2023 Telephone [facility] Medical Group Multispecialty Care - [facility] [address] [facility], [address] [place] [phone] Linda Gr MD [address] [place] [address] Appointment Request Social History Tobacco Use Types [...] on file Legal Sex Female 9:41 PM DIRECTOR POST Gender Identity Female 04/24/2021 2:22 PM DIRECTOR POST Sexual Orientation Choose not to disclose 2021 2:22 PM DIRECTOR POST documented as of this encounter Progress Notes * Linda Singh MA - 06/25/2023 2:00 PM CDT Expert TAHART message sent. for return call left on [...] Depression Total Score: 14 023 8:28 AM DIRECTOR POST documented as of this encounter Care Teams Tire Retreader Relationship Specialty Start Date End Date Jacquie Fair NP [address] [place] [address] PCP - General NURSE PRACTITIONER 06/20/21 documented as of this encounter
--- OUTSIDE RECORDS SUMMARY | 2024-02-27 10:03 | XMS_ITS | Encounter Summary ---
Author Organization [facility] Address [address] [place] [address]. [place] [address] [place] [address] Care Team Providers Care Judge Name Role Phone Jacquie Fair NP Primary Care Provider +1 -[phone] Encounter Details Date Type Department Care Team [...] on file Legal Sex Female 9:41 PM BALLOON ARTIST Gender Identity Female 04/24/2021 2:22 PM BALLOON ARTIST Sexual Orientation Choose not to disclose 2021 2:22 PM BALLOON ARTIST COVID-19 Exposure Response Date Recorded In the [...] Depression Total Score: 14 023 8:28 AM BALLOON ARTIST documented as of this encounter Care Teams Judge Relationship Specialty Start Date End Date Jacquie Fair NP [address] [place] [address] PCP - General NURSE PRACTITIONER 06/20/21 documented as of this encounter
--- OUTSIDE RECORDS SUMMARY | 2024-02-27 10:03 | XMS_ITS | Encounter Summary ---
Author Organization [facility] Address [address] [place] [address]. [place] [address] [place] [address] Care Team Providers Care Chief Relay Tester Name Role Phone Jacquie Fair NP Primary Care Provider [phone] [phone] Encounter Details Date Type Department Care Team [...] on file Legal Sex Female 9:41 PM LEGAL COMPLIANCE OFFICER Gender Identity Female 04/24/2021 2:22 PM LEGAL COMPLIANCE OFFICER Sexual Orientation Choose not to disclose 2021 2:22 PM LEGAL COMPLIANCE OFFICER documented as of this encounter Plan of Treatment Not on file documented as of this encounter Visit Diagnoses Not on filedocumented in this encounter Additional Health Concerns Assessment Noted Time PHQ-9 Depression Total Score: 14 023 8:28 AM LEGAL COMPLIANCE OFFICER documented as of this encounter Care Teams Chief Relay Tester Relationship Specialty Start Date End Date Jacquie Fair NP [address] [place] [address] PCP - General NURSE PRACTITIONER 06/20/21 documented as of this encounter
--- OUTSIDE RECORDS SUMMARY | 2024-02-27 10:03 | XMS_ITS | Encounter Summary ---
Author Organization [facility] Address [address] [place] [address]. [place] [address] [place] [address] Care Team Providers Care Speech And Language Specialist Name Role Phone Jacquie Fair NP Primary Care Provider +1 [phone] Reason for Visit * Reason Comments Lab [...] on file Legal Sex Female 9:41 PM PARTS FACILITATOR Gender Identity Female 04/24/2021 2:22 PM PARTS FACILITATOR Sexual Orientation Choose not to disclose 2021 2:22 PM PARTS FACILITATOR documented as of this encounter Plan of [...] Depression Total Score: 14 023 8:28 AM PARTS FACILITATOR documented as of this encounter Care Teams Speech And Language Specialist Relationship Specialty Start Date End Date Jacquie Fair NP [address] [place] [address] PCP - General NURSE PRACTITIONER 06/20/21 documented as of this encounter
--- OUTSIDE RECORDS SUMMARY | 2024-02-27 10:03 | XMS_ITS | Encounter Summary ---
Author Organization [facility] Address [address] [place] [address]. [place] [address] [place] [address] Care Team Providers Care Volunteer Services Coordinator Name Role Phone Jacquie Fair NP Primary Care Provider [phone] [phone] Reason for Visit * Reason Onset Date Comments Other 09/10/2022 Encounter Details Date Type Department Care Team (Late st Contact Info) Description 09/10/2022 Telephone [facility] Medical Group Family Medicine - [place] [address] [phone] Jacquie Fair, TRICIA [address] [place] [address] [place] [address] Other Social History Tobacco Use Types [...] on file Legal Sex Female 9:41 PM SCALE AGENT Gender Identity Female 04/24/2021 2:22 PM SCALE AGENT Sexual Orientation Choose not to disclose 2021 2:22 PM SCALE AGENT documented as of this encounter Progress Notes [...] Depression Total Score: 14 023 8:28 AM SCALE AGENT documented as of this encounter Care Teams Volunteer Services Coordinator Relationship Specialty Start Date End Date Jacquie Fair NP [address] [place] [address] PCP - General NURSE PRACTITIONER 06/20/21 documented as of this encounter
--- OUTSIDE RECORDS SUMMARY | 2024-02-27 10:03 | XMS_ITS | Encounter Summary ---
Author Organization [facility] Address [address] [place] [address]. [place] [address] [place] [address] Care Team Providers Care Inspector Machined Parts Name Role Phone Jacquie Fair NP Primary Care Provider +1 -[phone] Encounter Details Date Type Department Care Team [...] on file Legal Sex Female 9:41 PM ATOMIC FUEL ASSEMBLER Gender Identity Female 04/24/2021 2:22 PM ATOMIC FUEL ASSEMBLER Sexual Orientation Choose not to disclose 2021 2:22 PM ATOMIC FUEL ASSEMBLER documented as of this encounter Plan of Treatment Not on file documented as of this encounter Visit Diagnoses Not on filedocumented in this encounter Additional Health Concerns Assessment Noted Time PHQ-9 Depression Total Score: 14 023 8:28 AM ATOMIC FUEL ASSEMBLER documented as of this encounter Care Teams Inspector Machined Parts Relationship Specialty Start Date End Date Jacquie Fair NP [address] [place] [address] PCP - General NURSE PRACTITIONER 06/20/21 documented as of this encounter
--- OUTSIDE RECORDS SUMMARY | 2024-02-27 10:03 | XMS_ITS | Encounter Summary ---
Author Organization [facility] Address [address] [place] [address]. [place] [address] [place] [address] Care Team Providers Care Party Planner Name Role Phone Jacquie Fair NP Primary Care Provider [phone] [phone] Encounter Details Date Type Department Care Team [...] on file Legal Sex Female 9:41 PM BLOCK STACKER Gender Identity Female 04/24/2021 2:22 PM BLOCK STACKER Sexual Orientation Choose not to disclose 2021 2:22 PM BLOCK STACKER documented as of this encounter Plan of Treatment Not on file documented as of this encounter Visit Diagnoses Not on filedocumented in this encounter Additional Health Concerns Assessment Noted Time PHQ-9 Depression Total Score: 14 023 8:28 AM BLOCK STACKER documented as of this encounter Care Teams Party Planner Relationship Specialty Start Date End Date Jacquie Fair NP [address] [place] [address] PCP - General NURSE PRACTITIONER 06/20/21 documented as of this encounter
--- OUTSIDE RECORDS SUMMARY | 2024-02-27 10:03 | XMS_ITS | Encounter Summary ---
Author Organization [facility] Address [address] [place] [address]. [place] [address] [place] [address] Care Team Providers Care Transportation Dispatcher Name Role Phone Jacquie Fair NP Primary Care Provider +1 -[phone] Encounter Details Date Type Department Care Team [...] on file Legal Sex Female 9:41 PM SURVEILLANCE ANALYST Gender Identity Female 04/24/2021 2:22 PM SURVEILLANCE ANALYST Sexual Orientation Choose not to disclose 2021 2:22 PM SURVEILLANCE ANALYST documented as of this encounter Plan of Treatment Not on file documented as of this encounter Visit Diagnoses Not on filedocumented in this encounter Additional Health Concerns Assessment Noted Time PHQ-9 Depression Total Score: 14 023 8:28 AM SURVEILLANCE ANALYST documented as of this encounter Care Teams Transportation Dispatcher Relationship Specialty Start Date End Date Jacquie Fair NP [address] [place] [address] PCP - General NURSE PRACTITIONER 06/20/21 documented as of this encounter
--- OUTSIDE RECORDS SUMMARY | 2024-02-27 10:03 | XMS_ITS | Encounter Summary ---
Author Organization [facility] Address [address] [place] [address]. [place] [address] [place] [address] Care Team Providers Care Supervisor Travel Information Center Name Role Phone Jacquie Fair NP Primary Care Provider +1 [phone] Encounter Details Date Type Department Care Team [...] on file Legal Sex Female 9:41 PM INSTANT PRINT OPERATOR Gender Identity Female 04/24/2021 2:22 PM INSTANT PRINT OPERATOR Sexual Orientation Choose not to disclose 2021 2:22 PM INSTANT PRINT OPERATOR documented as of this encounter Plan of Treatment Not on file documented as of this encounter Visit Diagnoses Not on filedocumented in this encounter Additional Health Concerns Assessment Noted Time PHQ-9 Depression Total Score: 14 023 8:28 AM INSTANT PRINT OPERATOR documented as of this encounter Care Teams Supervisor Travel Information Center Relationship Specialty Start Date End Date Jacquie Fair NP [address] [place] [address] PCP - General NURSE PRACTITIONER 06/20/21 documented as of this encounter
--- OUTSIDE RECORDS SUMMARY | 2024-02-27 10:03 | XMS_ITS | Encounter Summary ---
Author Organization [facility] Address [address] [place] [address]. [place] [address] [place] [address] Care Team Providers Care Recycle Coordinator Name Role Phone Jacquie Fair NP Primary Care Provider +1 [phone] Reason for Visit * Reason Onset Date Comments Consult 06/07/2023 Encounter Details Date Type Department Care Team (Late st Contact Info) Description 06/07/2023 Telephone [facility] [place], [facility], [address] [address] Ana Petit RMA Consult Social History Tobacco [...] on file Legal Sex Female 9:41 PM SQUARE CUTTER Gender Identity Female 04/24/2021 2:22 PM SQUARE CUTTER Sexual Orientation Choose not to disclose 2021 2:22 PM SQUARE CUTTER documented as of this encounter Progress Notes [...] Depression Total Score: 14 023 8:28 AM SQUARE CUTTER documented as of this encounter Care Teams Recycle Coordinator Relationship Specialty Start Date End Date Jacquie Fair NP [address] [place] [address] PCP - General NURSE PRACTITIONER 06/20/21 documented as of this encounter
--- OUTSIDE RECORDS SUMMARY | 2024-02-27 10:03 | XMS_ITS | Encounter Summary ---
Author Organization [facility] Address [address] [place] [address]. [place] [address] [place] [address] Care Team Providers Care Marine Engineer Name Role Phone Jacquie Fair NP Primary Care Provider +1 [phone] Reason for Referral * Consultation (Urgent) - Closed Specialty Diagnoses / Procedures Referred By Contmarcella t Referred To Contact Genetics Diagnoses Hypermobile Ihsan-Danlos syndrome (HHS/HCC) POTS (postural orthostatic tachycardia syndrome) Other chronic pain Procedures OFFICE/OUTPT VISIT,NEW,LEVL III OFFICE/OUTPT VISIT,NEW,LEVL IV OFFICE/OUTPT VISIT,NEW,LEVL V OFFICE/OUTPT VISIT,EST,LEVL III OFFICE/OUTPT VISIT,EST,LEVL IV OFFICE/OUTPT VISIT,EST,LEVL V Jacquie Fair NP [address] [place] [address] Phone: tel: fax: [facility]3] [address] [place] [address] Phone: tel: fax: Referral ID Status Reason Start Date Expiration Date Visits Re quested Visits Authorized [id number] Closed 07/17/2022 07/18/2023 99 99 Scheduling Instructions Please refer pt to Linda Gonzales, genetics specialist for [facility] in [place]. Reason for Visit * Reason Comments Annual Patient presents for an adult routine exam Encounter Details Date Type Department Care Team (Late st Contact Info) Description 07/17/2022 2:40 PM CDT Office Visit [facility] Family Medicine - [place] [address] [facility] [address] [place] [address] Jacquie Fair NP [address] [place] [address] Annual (Patient presents for an adult routine [...] on file Legal Sex Female 9:41 PM COMMODITIES BROKER Gender Identity Female 04/24/2021 2:22 PM COMMODITIES BROKER Sexual Orientation Choose not to disclose 2021 2:22 PM COMMODITIES BROKER COVID-19 Exposure Response Date Recorded In the [...] the day of the encounter. This includes wjck-ya-kwft and xny-vfed-ce-face time I provided on the day of [...] HEPATITIS C AB NON-REACT ANKIT NON-REACT ANKIT [facility] SIGNAL TO CUTOFF 0.07 <1.00 [facility] Comment: HCV antibody was non-reactive. There is no laboratory evidence of HCV infection. In most cases, no further action is required. However, if recent HCV exposure is suspected, a test for HCV RNA (test code 07396) is suggested. For additional information please refer to http://education.[employer]/faq/VXD35t8 (This link is being provided for informational/ educational purposes only.) 07/31/2022 10:4 9 AM CDT 07/31/2022 10:49 AM CDT Narrative Resulting Agency Comment Performing Organization Information: ?Site ID: [id number] ?Name: [facility] ?Address: [address] [place] [address] ?Director: Nicolle Roach MD us Jacquieluis Fair NP LABORATORY Final Res ult [facility] [address] [place] [address], * CELIAC DISEASE ANTIBODY PANEL (07/31/2022 10:49 AM CDT) Pathologist [facility] TISSUE TRANSGLUTAMINASE IGG AB <1.0 U/mL [facility] Comment: Value ?Interpretation ----- ? <15.0 ?Antibody not detected > or = 15.0 ?Antibody detected TISSUE TRANSGLUTAMINASE IGA AB <1.0 U/mL [facility] Comment: Value ?Interpretation ----- ? <15.0 ?Antibody not detected > or = 15.0 ?Antibody detected DEAMIDATED GLIADIN IGA 1.7 U/mL [facility] Comment: Value ?Interpretation ----- ? <15.0 ?Antibody not detected > or = 15.0 ?Antibody detected DEAMIDATED GLIADIN IGG <1.0 U/mL [facility] Comment: Value ?Interpretation ----- ? <15.0 ?Antibody not detected > or = 15.0 ?Antibody detected IGA 292 47 - 310 mg/dL [facility] 07/31/2022 10:4 9 AM CDT 07/31/2022 10:49 AM CDT Narrative Resulting Agency Comment Performing Organization Information: ?Site ID: [id number] ?Name: [facility] ?Address: [address] [place] [address] ?Director: Anselmo Resendez us Jacquie Fair HEALTH AND WELLNESS MANAGER LABORATORY Final Res ult [facility] [address] [place] [address] * (ABNORMAL) MEKA IFA SCREEN WI RFX TO TITER/CASCADE ([facility] ONLY) (07/31/2022 10:49 AM CDT) MEKA POSITIVE (A) NEGATIVE [facility] Comment: MEKA IFA is a first line screen for detecting the presence of up to approximately 150 autoantibodies in various autoimmune diseases. A positive MEKA IFA result is suggestive of autoimmune disease and reflexes to titer, pattern and the 3 tiered Multiplex 11 Antibody [place]. Testing in the [place] stops at the first positive result, and does not preclude additional positive results. Further laboratory testing may be considered if clinically indicated. For additional information, please refer to http://education.[employer] [facility]/faq/PHC939 (This link is being provided for informational/ educational purposes only.) ?? MEKA TITER 1:320(H) titer [facility] Comment: ?Reference Range ?<1:40 ?Negative ?1:40-1:80 ?Low Antibody Level ?>1:80 ?Elevated Antibody Level MEKA PATTERN Nuclear, Dense Fine Speckled (A) [facility] Comment: Dense fine speckled pattern is seen in normal individuals and rarely associated with systemic lupus erythematosis (SLE), Sjogren's syndrome and systemic sclerosis. AC-2: Dense Fine Speckled International Consensus on MEKA Patterns (https://doi.org/10.1515/fsyb-3289-2622) DNA (DS) ANTIBODY 24(H) IU/mL [facility] Comment: ? IU/mL ? Interpretation ? < or = 4 ?Negative ? 5-9 ? Indeterminate ? > or = 10 ?? Positive SM ANTIBODY <1.0 NEG <1.0 NEG AI [facility] SM/CASINO ASSISTANT MANAGER AB S/P/B <1.0 NEG <1.0 NEG AI [facility] CASINO ASSISTANT MANAGER (U1) AB S/P/B <1.0 NEG <1.0 NEG AI [facility] CHROMATIN (NUCLEOSOMAL)AB <1.0 NEG <1.0 NEG AI [facility] Comment: ANTIBODY PREVALENCE IN TIER 1 ? [...] Sjogren's syndrome and 8% polymyositis. ?? Ribonucleoprotein (CASINO ASSISTANT MANAGER) antibodies are to CASINO ASSISTANT MANAGER A and/or CASINO ASSISTANT MANAGER 68kD proteins; antibodies to one or both are present in >80% MCTD, 22% to 48% SLE, 14% systemic sclerosis, 12% Sjogren's and 8% polymyositis. ?? Sm/CASINO ASSISTANT MANAGER antibodies are directed to epitopes formed in a complex of Sm and CASINO ASSISTANT MANAGER; antibodies to the Sm/CASINO ASSISTANT MANAGER complex are present in 54% to 94% MCTD, 30% SLE, 4% systemic sclerosis, and 9% Sjogren's and polymyositis. ?? Sm antibody is present in 20% to 30% SLE, 8% MCTD, 10% polymyositis, 0% systemic sclerosis and 4% Sjogren's syndrome. ?? Double stranded DNA, Chromatin, Ribonucleoprotein, Sm/CASINO ASSISTANT MANAGER complex and Sm antibodies are present in <2% of normal blood donors. ?? The [place] does not rule out autoimmune disease characterized by other autoantibody specificities such as rheumatoid arthritis, autoimmune hepatitis, primary biliary cirrhosis, autoimmune thyroiditis, Bushland's disease, pernicious anemia, autoimmune neuropathies, vasculitis, celiac disease and bullous disease. Please contact your local [facility] laboratory if you are interested in additional testing. INTERPRETATION [facility] Comment: dsDNA antibody is frequently positive in [...] ?Site ID: [id number] ?Name: Laura [facility] ?Address: [address] [place], [place] [address] [address] ?Director: Nicolle Roach MD Jacquie Fair NP LABORATORY Final Res ult Performing Organization Address [facility] de Phone Number [facility] [address] [address] [place] [address] [place] [address] * (ABNORMAL) HEPATITIS B SURFACE ANTIBODY (07/31/2022 10:49 AM CDT) HEPATITIS B SURFACE AB REACTIVE( A) NON-REACT ANKIT [facility] Comment: Our records indicate that you have ordered a client custom reflex order code. Only the initial test was performed because we do not have a client custom reflex testing authorization request form on file for you. Please contact a senior client advisor if you would like additional testing done on this patient or contact your technical sales specialist to obtain a client custom reflex testing authorization request form. 07/31/2022 10:4 9 AM CDT 07/31/2022 10:49 AM CDT Narrative Resulting Agency Comment Performing Organization Information: ?Site ID: [id number] ?Name: Laura [facility] ?Address: [facility] [place] [address] ?Director: Nicolle Roach MD Jacquie Fair NP LABORATORY Final Res ult Performing Organization Address [facility] de Phone Number [facility] [address] [place], [place] [address] [place] [address] documented in this encounter Visit Diagnoses Diagnosis Annual physical exam Routine general medical examination at a health care facility Hypermobile Ihsan-Danlos syndrome (HHS/HCC) POTS (postural orthostatic [...] Depression Total Score: 14 023 8:28 AM COMMODITIES BROKER documented as of this encounter Care Teams Marine Engineer Relationship Specialty Start Date End Date Jacquie Fair NP [address] [place] [address] PCP - General NURSE PRACTITIONER 06/20/21 documented as of this encounter
--- OUTSIDE RECORDS SUMMARY | 2024-02-27 10:03 | XMS_ITS | Encounter Summary ---
Author Organization [facility] Address [address] [place] [address]. [place] [address] [place] [address] Care Team Providers Care Bench Patternmaker Metal Name Role Phone Jacquie Fair NP Primary Care Provider [phone] [phone] Encounter Details Date Type Department Care Team (Late st Contact Info) Description 08/15/2022 Gritnesst Message Enc [facility] Medical [facility] Family Medicine - [place] [address] [facility] [address] [place], [place] [address] Jacquie Fair, TRICIA [address] [place] [address] follow up on echo Social History Tobacco [...] on file Legal Sex Female 9:41 PM RAG CUTTING MACHINE TENDER Gender Identity Female 04/24/2021 2:22 PM RAG CUTTING MACHINE TENDER Sexual Orientation Choose not to disclose 2021 2:22 PM RAG CUTTING MACHINE TENDER COVID-19 Exposure Response Date Recorded In [...] Depression Total Score: 14 023 8:28 AM RAG CUTTING MACHINE TENDER documented as of this encounter Care Teams Bench Patternmaker Metal Relationship Specialty Start Date End Date Jacquie Fair NP [address] [place] [address] PCP - General NURSE PRACTITIONER 06/20/21 documented as of this encounter
--- OUTSIDE RECORDS SUMMARY | 2024-02-27 10:03 | XMS_ITS | Encounter Summary ---
Author Organization [facility] Address [address] [place] [address]. [place] [address] [place] [address] Care Team Providers Care Qc Lab Technician Name Role Phone Jacquie Fair NP Primary Care Provider [phone] [phone] Reason for Referral * Consultation (Routine) - Authorized Specialty Diagnoses / Procedures Referred By Contac t Referred To Contact NEUROLOGY Diagnoses POTS (postural orthostatic tachycardia syndrome) Procedures OFFICE/OUTPATIENT NEW LOW MDM 30-44 MINUTES OFFICE/OUTPT VISIT,NEW,LEVL IV OFFICE/OUTPT VISIT,NEW,LEVL V OFFICE/OUTPT VISIT,EST,LEVL III OFFICE/OUTPT VISIT,EST,LEVL IV OFFICE/OUTPT VISIT,EST,LEVL V Hemant Orr MD [address] [place] [address] Phone: tel: fax: [facility] [address] [place] [address] Phone: tel: fax: Referral ID Status Reason Start Date Expiration Date Visits Requested Visits Authorized [id number] Authorized Specialty Services 07/09/2023 06/30/2024 99 99 Reason for Visit * Reason Comments Establish Care [facility] [place] Imagin g * Consultation (Urgent) - Authorized Specialty Diagnoses / Procedures Referred By Contac t Referred To Contact NEUROLOGY Diagnoses Loss of consciousness (CMS/HCC HHS/HCC) Facial droop Procedures OFFICE/OUTPATIENT NEW [facility] MDM 30-44 MINUTES OFFICE/OUTPT VISIT,NEW,LEVL IV OFFICE/OUTPT VISIT,NEW,LEVL V OFFICE/OUTPT VISIT,EST,LEVL III OFFICE/OUTPT VISIT,EST,LEVL IV OFFICE/OUTPT VISIT,EST,LEVL V Jacquie Fair, TRICIA [address] [place] [address] Phone: tel: fax: [facility] - [address], [address] [place] [address] Phone: tel: Referral ID Status Reason Start Date Expiration Date Visits Requested Visits Authorized [id number] Authorized Specialty Services 06/26/2023 07/12/2024 99 99 Encounter Details Date Type Department Care Team (Late st Contact Info) Description 07/01/2023 11:40 AM CDT [facility] - [address], [address] [place] [address] Hemant Orr MD [address] [place] [phone] Establish Care ([facility]) Social History Tobacco Use Types Packs/Day Years [...] on file Legal Sex Female 9:41 PM BACON SKIN LIFTER Gender Identity Female 04/24/2021 2:22 PM BACON SKIN LIFTER Sexual Orientation Choose not to disclose 2021 2:22 PM BACON SKIN LIFTER documented as of this encounter Last Filed [...] Orr MD - 07/01/2023 11:40 AM CDT [facility] Medical Group Multispecialty Care - [address], [address] [facility] [address] Dept: [phone] Name: Shagufta Lamar Date of : 1985 [...] deficit hyperactivity disorder), Anemia (2005), Anxiety, Asthma ([facility]) (2002), Back spasm (2009), Blood transfusion without [...] Depression Total Score: 14 023 8:28 AM BACON SKIN LIFTER documented as of this encounter Care Teams Qc Lab Technician Relationship Specialty Start Date End Date Jacquie Fair NP [address] [place] [address] PCP - General NURSE PRACTITIONER 06/20/21 documented as of this encounter
--- OUTSIDE RECORDS SUMMARY | 2024-02-27 10:04 | XMS_ITS | Encounter Summary ---
Author Organization [facility] Address [address] [place] [address]. [place] [address] [place] [address] Care Team Providers Care Lay Out Inspector Name Role Phone Jacquie Fair NP Primary Care Provider [phone] [phone] Encounter Details Date Type Department Care Team (Late st Contact Info) Description 02/28/2022 Orders Only [facility] [address] [place] [address] Josh Akhtar, DO [address] [facility] [address] [place] [address] Social History Tobacco Use Types Packs/Day [...] on file Legal Sex Female 9:41 PM ABRASIVE WATER JET CUTTER OPERATOR Gender Identity Female 04/24/2021 2:22 PM ABRASIVE WATER JET CUTTER OPERATOR Sexual Orientation Choose not to disclose 2021 2:22 PM ABRASIVE WATER JET CUTTER OPERATOR documented as of this encounter Plan of Treatment Not on file documented as of this encounter Results * (ABNORMAL) IRON SAT PANEL (IRON,IBC,%SAT) (02/28/2022 9:25 AM ABRASIVE WATER JET CUTTER OPERATOR) IRON 39(L) 50 - 170 MCG/DL 02/28/2022 7:12 PM ABRASIVE WATER JET CUTTER OPERATOR [facility] IRON BINDING CAPACITY 230(L) 250 - 450 MCG/DL 02/28/2022 7:12 PM [facility] IRON SATURATION 17(L) 20 - 55 % 7:12 PM ABRASIVE WATER JET CUTTER OPERATOR [facility] 02/28/2022 9:25 AM ABRASIVE WATER JET CUTTER OPERATOR us Josh Akhtar DO LABORATORY Final Result [facility] [address] [place] [address], [place] [phone] * FERRITIN (02/28/2022 9:25 AM ABRASIVE WATER JET CUTTER OPERATOR) FERRITIN 329.0 8.0 - 388.0 NG/ML 02/28/2022 7:12 PM [facility] 02/28/2022 9:25 AM ABRASIVE WATER JET CUTTER OPERATOR us Josh Akhtar DO LABORATORY Final Result Performing Organization Address City/[facility]/ZIP Co de Phone Number [facility] [address] [place] [address], [place] [phone] * (ABNORMAL) COMPREHENSIVE METABOLIC PANEL (02/28/2022 9:25 AM ABRASIVE WATER JET CUTTER OPERATOR) GLUCOSE 47(L) 70 - 99 MG/DL 02/28/2022 [...] for calculating drug doses. 02/28/2022 9:25 AM ABRASIVE WATER JET CUTTER OPERATOR us Josh Akhtar DO LABORATORY Final Result [facility] [address] [place] [address], [place] [phone] * (ABNORMAL) CBC W/DIFF AUTOMATED (02/28/2022 9:25 AM ABRASIVE WATER JET CUTTER OPERATOR) WBC 5.91 4.50 - 11.00 x10'3/uL 02/28/2022 [...] 0.04 - 0.36 x10'3/uL 02/28/2022 10:57 AM ABRASIVE WATER JET CUTTER OPERATOR [facility] ABS. BASOPHILS 0.06 0.01 - 0.08 x10'3/uL 02/28/2022 10:57 AM ABRASIVE WATER JET CUTTER OPERATOR [facility] ABS. IMMATURE GRANULOCYTES 0.02 0.00 - 0.49 x10'3/uL 02/28/2022 10:57 AM ABRASIVE WATER JET CUTTER OPERATOR [facility] ABS. NUCLEATED RBC'S 0.00 0.00 - 0.01 x10'3/uL 02/28/2022 10:57 AM ABRASIVE WATER JET CUTTER OPERATOR [facility] 02/28/2022 9:25 AM ABRASIVE WATER JET CUTTER OPERATOR us Josh Akhtar DO LABORATORY Final Result [facility] [address] [place] [address], documented in this encounter Visit Diagnoses Diagnosis Iron deficiency anemia, unspecified iron deficiency anemia type- Primary documented in this encounter Additional Health Concerns Assessment Noted Time PHQ-9 Depression Total Score: 0 02/29/20 21 9:14 AM ABRASIVE WATER JET CUTTER OPERATOR documented as of this encounter Care Teams Lay Out Inspector Relationship Specialty Start Date End Date Jacquie Fair NP [address] [place] [address] PCP - General NURSE PRACTITIONER 06/20/21 documented as of this encounter
--- OUTSIDE RECORDS SUMMARY | 2024-02-27 10:04 | XMS_ITS | Encounter Summary ---
Author Organization [facility] Address [address] [place] [address]. [place] [address] [place] [address] Care Team Providers Care Portal Architect Name Role Phone Jacquie Fair NP Primary Care Provider [phone] [phone] Encounter Details Date Type Department Care Team (Latest Contact Info) Description 12/12/2021 - 12/12/2021 12:28 PM CDT Hospital Encounter [facility] [address] [facility] [place] [address] Jacquie Fair, RUSH SEATER [address] [place] [address] Discharge Disposition: Home or Self [...] on file Legal Sex Female 9:41 PM RN DISCHARGE Gender Identity Female 04/24/2021 2:22 PM RN DISCHARGE Sexual Orientation Choose not to disclose 2021 2:22 PM RN DISCHARGE COVID-19 Exposure Response Date Recorded In the [...] Total Score: 0 02/29/20 21 9:14 AM RN DISCHARGE documented as of this encounter Care Teams Portal Architect Relationship Specialty Start Date End Date Jacquie Fair NP [address] [place] [address] PCP - General NURSE PRACTITIONER 06/20/21 documented as of this encounter
--- OUTSIDE RECORDS SUMMARY | 2024-02-27 10:04 | XMS_ITS | Encounter Summary ---
Author Organization [facility] Address [address] [place] [address]. [place] [address] [place] [address] Care Team Providers Care Vegetable Washer Name Role Phone Jacquie Fair NP Primary Care Provider [phone] [phone] Reason for Visit * Reason Onset Date Comments Reschedule 11/03/2021 Encounter Details Date Type Department Care Team (Late st Contact Info) Description 11/03/2021 Telephone [facility] Medical [facility] Multispecialty Care - [address] [place] [id number] Garret John MD [address] [facility] [address] [place] [address] Reschedule Social History Tobacco Use Types Packs/Day [...] on file Legal Sex Female 9:41 PM COOK SPECIALTY FOREIGN FOOD Gender Identity Female 04/24/2021 2:22 PM COOK SPECIALTY FOREIGN FOOD Sexual Orientation Choose not to disclose 2021 2:22 PM COOK SPECIALTY FOREIGN FOOD COVID-19 Exposure Response Date Recorded In the [...] Total Score: 0 02/29/20 21 9:14 AM COOK SPECIALTY FOREIGN FOOD documented as of this encounter Care Teams Vegetable Washer Relationship Specialty Start Date End Date Jacquie Fair NP [address] [place] [address] PCP - General NURSE PRACTITIONER 06/20/21 documented as of this encounter
--- OUTSIDE RECORDS SUMMARY | 2024-02-27 10:04 | XMS_ITS | Encounter Summary ---
Author Organization [facility] Address [address] [place] [address]. [place] [address] [place] [address] Care Team Providers Care Campaign Marketing Manager Name Role Phone Jacquie Fair NP Primary Care Provider +1 [phone] Reason for Visit * Reason Comments Cough Patient presents wit h c/o cough with yellow/green phlegm, chest congestion, wheezing, sob, and lymph node in neck hurt. X 3 weeks She took 2 COVID test at home and both negative took about 1 week ago Encounter Details Date Type Department Care Team (Late st Contact Info) Description 12/12/2021 11:40 AM CDT Office Visit [facility] Family Medicine - [place] [address] [address] Jacquie Fair, TRICIA [address] [place] [address] Cough (Patient presents with c/o cough with [...] on file Legal Sex Female 9:41 PM STATUS CONTROLLER Gender Identity Female 04/24/2021 2:22 PM STATUS CONTROLLER Sexual Orientation Choose not to disclose 2021 2:22 PM STATUS CONTROLLER COVID-19 Exposure Response Date Recorded In the [...] Kiki Loyola, 12/12/2021 1:08 PM Jacquie Fair SURVEY ANALYST GENERAL IMAGING Final Res ult * CULTURE, BACTERIA, BLOOD (12/12/2021 12:50 PM CDT) Pathologist [facility] SPEC DESCRIPTION BLOOD 12/12/2021 12:46 PM CDT [facility] SPECIAL REQUESTS NO SPECIAL REQUEST 12/12/2021 12:46 PM CDT [facility] CULTURE RESULT NO GROWTH 5 DAYS 12/17/2021 1:02 AM CDT [facility] BLOOD SPECIMEN OBTAINED FOR BLOOD CULTURE / Unknown 12/12/2021 12:50 PM CDT 12/12/2021 12:51 PM CDT Jacquie Fair SURVEY ANALYST MICROBIOLOGY - GENERAL OR DERABLES Final Result [facility] [address] [place] [address], [place] [phone] * PROCALCITONIN (PCT) (12/12/2021 12:45 PM CDT) Procalcitonin <0.05 0.00 - 0.25 NG/ML 12/12/2021 2:05 PM CDT [facility] Comment: PROCALCITONIN INTERPRETATION GUIDELINES LOWER [...] 12:4 5 PM CDT us Jacquie Fair SURVEY ANALYST LABORATORY Final Res ult [facility] [address] [place] [address], * (ABNORMAL) C-REACTIVE PROTEIN (12/12/2021 12:45 PM CDT) C-REACTIVE PROTEIN 2.10(H) <0.9 mg/dL 12/12/2021 1:39 PM CDT [facility] 12/12/2021 12:4 5 PM CDT Jacquie Fair SURVEY ANALYST LABORATORY Final Res ult Performing Organization Address City/[facility]/ZIP Co de Phone Number [facility] [address] [place] [address], [place] [phone] * (ABNORMAL) SED RATE, ERYTHROCYTE (ESR) (12/12/2021 12:45 PM CDT) ESR 26(H) 0 - 20 MM/HR 12/12/2021 1:43 PM CDT [facility] 12/12/2021 12:4 5 PM CDT Jacquie Fair SURVEY ANALYST LABORATORY Final Res ult Performing Organization Address [facility] Co de Phone Number [facility] [address] [place] [address], [place] [phone] * CULTURE, BACTERIA, BLOOD (12/12/2021 12:45 PM CDT) SPEC DESCRIPTION BLOOD 12/12/2021 12:43 PM CDT [facility] SPECIAL REQUESTS NO SPECIAL REQUEST 12/12/2021 12:43 PM CDT [facility] CULTURE RESULT NO GROWTH 5 DAYS 12/17/2021 1:02 AM CDT [facility] BLOOD SPECIMEN OBTAINED FOR BLOOD CULTURE / Unknown 12/12/2021 12:45 PM CDT 12/12/2021 12:46 PM CDT us Jacquie Fair NP MICROBIOLOGY - GENERAL OR DERABLES Final Result [facility] [address] [place] [address], [place] [phone] * COMPREHENSIVE METABOLIC PANEL (12/12/2021 12:45 PM CDT) GLUCOSE 90 70 - 99 MG/DL 12/12/2021 1:39 PM CDT [facility] BUN 7 7 - 18 MG/DL 12/12/2021 1:39 PM CDT [facility] CREATININE S/P/B 0.75 0.55 - 1.02 MG/DL 12/12/2021 1:39 PM CDT [facility] SODIUM S/P/B 139 136 - 145 MMOL/L 12/12/2021 1:39 PM CDT [facility] POTASSIUM S/P/B 3.7 3.5 - 5.1 MMOL/L 12/12/2021 1:39 PM CDT [facility] CHLORIDE S/P/B 102 100 - 108 MMOL/L 12/12/2021 1:39 PM CDT [facility] CO2 27.6 21 - 32 MMOL/L 12/12/2021 1:39 PM CDT [facility] CALCIUM S/P/B 8.8 8.5 - 10.1 MG/DL 12/12/2021 1:39 PM CDT [facility] BILIRUBIN TOTAL S/P/B 0.3 0.2 - 1.2 MG/DL 12/12/2021 1:39 PM T [facility] TOTAL PROTEIN S/P/B 7.4 6.4 - 8.2 G/DL 12/12/2021 1:39 PM CDT [facility] ALBUMIN S/P/B 4.1 3.4 - 5.0 G/DL 12/12/2021 1:39 PM CDT [facility] AST 23 15 - 37 U/L 12/12/2021 1:39 PM CDT [facility] ALT 26 14 - 55 U/L 12/12/2021 1:39 PM CDT [facility] ALKALINE PHOSPHATASE S/P/B 55 50 - 136 U/L 12/12/2021 1:39 PM CDT [facility] ANION GAP 9.4 5 - 15 MMOL/L 12/12/2021 1:39 PM CDT [facility] BUN CREATININE RATIO 9.3 6 - 26 12/12/2021 1:39 PM T [facility] A/G RATIO 1.2 1.0 - 2.0 RATIO 12/12/2021 1:39 PM T [facility] GFR ESTIMATE >90 >90 ML/MIN/1.7 3 M2 12/12/2021 1:39 PM T [facility] Comment: NOTE: eGFR is not calculated for patients <18 years of age. This is an estimated GFR calculation using the new CKD EPI creatinine equation without race and so does not require a correction factor for race. This estimated GFR should not be used for calculating drug doses. 12/12/2021 12:4 5 PM CDT us Jacquie Fair NP LABORATORY Final Res ult [facility] [address] [place] [address], * (ABNORMAL) CBC W/DIFF AUTOMATED (12/12/2021 12:45 PM CDT) WBC 10.1 4.4 - 11.0 x10'3/uL 12/12/2021 1:22 PM CDT [facility] RBC 3.89(L) 4.50 - 5.10 x10'6/uL 12/12/2021 1:22 PM T [facility] HGB 11.8(L) 12.3 - 15.3 G/DL 12/12/2021 1:22 PM [facility] HCT 34.7(L) 35.9 - 44.6 % 12/12/2021 1:22 PM [facility] MCV 89.2 80.0 - 96.0 FL 12/12/2021 1:22 PM [facility] MCH 30.3 25.3 - 30.9 PG 12/12/2021 1:22 PM [facility] MCHC 34.0 31.0 - 34.1 G/DL 12/12/2021 1:22 PM [facility] RDW 12.8 12.4 - 15.1 % 12/12/2021 1:22 PM [facility] PLT 327 151 - 353 x10'3/uL 12/12/2021 1:22 PM [facility] MPV 9.7 9.6 - 12.0 FL 12/12/2021 1:22 PM [facility] RBC MORPHOLOGY NORMAL 12/12/2021 1:22 PM [facility] PLT MORPH. NORMAL 12/12/2021 1:22 PM [facility] WBC MORPHOLOGY NORMAL 12/12/2021 1:22 PM [facility] LYMPHOCYTES % 11.4(L) 15.8 - 45.0 % 12/12/2021 1:22 PM [facility] NEUTROPHILS % 80.1(H) 42.1 - 71.9 % 12/12/2021 1:22 PM CDT [facility] MONOCYTES % 5.4(L) 5.7 - 12.5 % 12/12/2021 1:22 PM CDT [facility] EOSINOPHILS 2.5 0.0 - 5.6 % 12/12/2021 1:22 PM CDT [facility] BASOPHILS 0.3 0.0 - 1.3 % 12/12/2021 1:22 PM CDT [facility] ABS. NEUTROPHILS 8.06(H) 1.40 - 6.00 x10'3/uL 12/12/2021 1:22 PM CDT [facility] IMMATURE GRANS % 0.3 0.0 - 0.5 % 12/12/2021 1:22 PM CDT [facility] ABS. LYMPHOCYTES 1.15 0.80 - 4.70 x10'3/uL 12/12/2021 1:22 PM CDT [facility] 12/12/2021 12:4 5 PM CDT us Jacquie Fair SURVEY ANALYST LABORATORY Final Res ult [facility] [address] [place] [address], * CORONAVIRUS (COVID 19) PCR ([facility]) (12/12/2021 12:19 PM CDT) SPEC DESCRIPTION NASAL 12/13/19 12:20 PM CDT [facility] CORONAVIRUS SARS COV 2 PCR (RESP) NEGATIVE NEGATIVE 12/13/2021 1:56 PM CDT [facility] Comment: THE SARS-CoV-2 TEST HAS BEEN AUTHORIZED BY THE FDA UNDER AN EUA FOR USE BY AUTHORIZED LABORATORIES. PERFORMED BY NUCLEIC ACID AMPLIFICATION PCR FIRST TEST NO 12/12/2021 12:20 PM CDT [facility] EMPLOYED IN HEALTHCARE NO 12/12/2021 12:20 PM CDT [facility] SYMPTOMATIC DEFINED BY CDC YES 12/12/2021 12:20 PM CDT [facility] DATE OF SYMPTOM ONSET 2021112112/12/2021 12:20 PM CDT [facility] HOSPITALIZATION STATUS NO 12/12/2021 12:20 PM CDT [facility] PATIENT IN ICU NO 12/12/2021 12:20 PM CDT [facility] RESIDENT OF [facility] NO 12/12/2021 12:20 PM CDT [facility] NOT 12/12/2021 12:20 PM CDT [facility] NASOPHARYNGEAL SWAB / Unknown 12/12/2021 12:19 PM CDT Jacquie Fair SURVEY ANALYST MICROBIOLOGY - GENERAL OR DERABLES Final Result [facility] [address] [place] [address], [place] [phone] * CORONAVIRUS (COVID-19) INFLUENZA A & B ANTIGEN IA PANEL (12/12/2021) CORONAVIRUS ANTIGEN IA NEGATIVE NEGATIVE [address] [place] INFLUENZA A NEGATIVE NEGATIVE [address] [place] INFLUENZA B NEGATIVE NEGATIVE [address] [place] Internal Control: VALID VALID [address] [place] NASAL STRUCTURE / Unknown 12/12/2021 Jacquie Fair SURVEY ANALYST MICROBIOLOGY - GENERAL OR DERABLES Final Result [address] [place] [address] [place] [address], [place] [phone] * RESP SYNCYTIAL VIRUS (12/12/2021) RSV NEGATIVE NEGATIVE [address] [place] Internal Control: VALID VALID [address] [place] NASOPHARYNGEAL SWAB / Unknown 12/12/2021 Jacquie Fair SURVEY ANALYST MICROBIOLOGY - GENERAL OR DERABLES Final Result [address] [place] [address] [facility] [address] [place] [address], documented in this encounter Visit Diagnoses Diagnosis [...] Depression Total Score: 0 02/29/20 9:14 AM STATUS CONTROLLER documented as of this encounter Care Teams Campaign Marketing Manager Relationship Specialty Start Date End Date Jacquie Fair NP [address] [place] [address] PCP - General NURSE PRACTITIONER 06/20/21 documented as of this encounter
--- OUTSIDE RECORDS SUMMARY | 2024-02-27 10:04 | XMS_ITS | Encounter Summary ---
Author Organization [facility] Address [address] [place] [address]. [place] [address] [place] [address] Care Team Providers Care Group President Name Role Phone Jacquie Fair NP Primary Care Provider +1 -[phone] Encounter Details Date Type Department Care Team [...] on file Legal Sex Female 9:41 PM CHAIN TENDER Gender Identity Female 04/24/2021 2:22 PM CHAIN TENDER Sexual Orientation Choose not to disclose 2021 2:22 PM CHAIN TENDER documented as of this encounter Plan of Treatment Not on file documented as of this encounter Visit Diagnoses Not on filedocumented in this encounter Additional Health Concerns Assessment Noted Time PHQ-9 Depression Total Score: 14 023 8:28 AM CHAIN TENDER documented as of this encounter Care Teams Group President Relationship Specialty Start Date End Date Jacquie Fair NP [address] [place] [address] PCP - General NURSE PRACTITIONER 06/20/21 documented as of this encounter
--- OUTSIDE RECORDS SUMMARY | 2024-02-27 10:04 | XMS_ITS | Encounter Summary ---
Author Organization [facility] Address [address] [place] [address]. [place] [address] [place] [address] Care Team Providers Care Remote Sensing Program Manager Name Role Phone Jacquie Fair NP Primary Care Provider +1 [phone] Reason for Visit * Reason Onset Date Comments Follow Up Call 12/15/2021 Encounter Details Date Type Department Care Team (Late st Contact Info) Description 12/15/2021 Telephone [facility] Family Medicine - [place] [address] [facility] [address] [place] [id number] Jacquie Fair, TRICIA [address] [place] [address] [place], [place] [address] Follow Up Call Social History Tobacco Use [...] on file Legal Sex Female 9:41 PM CREATIVE WRITING ENGLISH PROFESSOR Gender Identity Female 04/24/2021 2:22 PM CREATIVE WRITING ENGLISH PROFESSOR Sexual Orientation Choose not to disclose 2021 2:22 PM CREATIVE WRITING ENGLISH PROFESSOR COVID-19 Exposure Response Date Recorded In [...] will return on Saturday12/18/21. Fax to number [phone] * Marley Bills MA - 12/15/2021 11:51 [...] Total Score: 0 02/29/20 21 9:14 AM CREATIVE WRITING ENGLISH PROFESSOR documented as of this encounter Care Teams Remote Sensing Program Manager Relationship Specialty Start Date End Date Jacquie Fair NP [address] [place] [address] PCP - General NURSE PRACTITIONER 06/20/21 documented as of this encounter
--- OUTSIDE RECORDS SUMMARY | 2024-02-27 10:04 | XMS_ITS | Encounter Summary ---
Author Organization [facility] Address [address] [place] [address]. [place] [address] [place] [address] Care Team Providers Care Instrument Technician Apprentice Name Role Phone Jacquie Fair NP Primary Care Provider +1 [phone] Encounter Details Date Type Department Care Team [...] on file Legal Sex Female 9:41 PM AUTOMOTIVE MAINTENANCE TECHNICIAN Gender Identity Female 04/24/2021 2:22 PM AUTOMOTIVE MAINTENANCE TECHNICIAN Sexual Orientation Choose not to disclose 2021 2:22 PM AUTOMOTIVE MAINTENANCE TECHNICIAN documented as of this encounter Plan of Treatment Not on file documented as of this encounter Visit Diagnoses Not on filedocumented in this encounter Additional Health Concerns Assessment Noted Time PHQ-9 Depression Total Score: 14 023 8:28 AM AUTOMOTIVE MAINTENANCE TECHNICIAN documented as of this encounter Care Teams Instrument Technician Apprentice Relationship Specialty Start Date End Date Jacquie Fair NP [address] [place] [address] PCP - General NURSE PRACTITIONER 06/20/21 documented as of this encounter
--- OUTSIDE RECORDS SUMMARY | 2024-02-27 10:04 | XMS_ITS | Encounter Summary ---
Author Organization [facility] Address [address] [place] [address]. [place] [address] [place] [address] Care Team Providers Care Manager Respiratory Name Role Phone Jacquie Fair NP Primary Care Provider +1 -[phone] Encounter Details Date Type Department Care Team [...] on file Legal Sex Female 9:41 PM DISTRIBUTION TRANSFORMER ASSEMBLER Gender Identity Female 04/24/2021 2:22 PM DISTRIBUTION TRANSFORMER ASSEMBLER Sexual Orientation Choose not to disclose 2021 2:22 PM DISTRIBUTION TRANSFORMER ASSEMBLER COVID-19 Exposure Response Date Recorded In the last 10 days, have yo u been in contact with someone who was confirmed or suspected to have Coronavirus/COVID-19? No / Unsure 04/27/2022 8:00 AM DISTRIBUTION TRANSFORMER ASSEMBLER documented as of this encounter Plan of Treatment Not on file documented as of this encounter Visit Diagnoses Not on filedocumented in this encounter Additional Health Concerns Assessment Noted Time PHQ-9 Depression Total Score: 14 023 8:28 AM DISTRIBUTION TRANSFORMER ASSEMBLER documented as of this encounter Care Teams Manager Respiratory Relationship Specialty Start Date End Date Jacquie Fair NP [address] [place] [address] PCP - General NURSE PRACTITIONER 06/20/21 documented as of this encounter
--- OUTSIDE RECORDS SUMMARY | 2024-02-27 10:04 | XMS_ITS | Encounter Summary ---
Author Organization [facility] Address [address] [place] [address]. [place] [address] [place] [address] Care Team Providers Care Studio Operation Engineer Name Role Phone Jacquie Fair NP Primary Care Provider +1 [phone] Reason for Visit * Reason Comments Lab [...] on file Legal Sex Female 9:41 PM GLASS FURNACE TENDER Gender Identity Female 04/24/2021 2:22 PM GLASS FURNACE TENDER Sexual Orientation Choose not to disclose 2021 2:22 PM GLASS FURNACE TENDER documented as of this encounter Plan of Treatment Not on file documented as of this encounter Procedures Procedure Name Priority Date/Time Associated Diagnosis Comments OUTSIDE LAB (SCAN ORDER) 01/16/2022 OUTSIDE LAB (SCAN ORDER) 01/16/2022 documented in this encounter Results * OUTSIDE LAB (SCAN) (01/16/2022) 01/16/2022 [facility] Scanned SCANNING Final Resu lt * OUTSIDE LAB (SCAN) (01/16/2022) 01/16/2022 us [facility] Scanned SCANNING Final Resu lt documented in this encounter Visit Diagnoses Not on filedocumented in this encounter Additional Health Concerns Assessment Noted Time PHQ-9 Depression Total Score: 0 02/29/20 21 9:14 AM GLASS FURNACE TENDER documented as of this encounter Care Teams Studio Operation Engineer Relationship Specialty Start Date End Date Jacquie Fair NP [address] [place] [address] PCP - General NURSE PRACTITIONER 06/20/21 documented as of this encounter
--- OUTSIDE RECORDS SUMMARY | 2024-02-27 10:04 | XMS_ITS | Encounter Summary ---
Author Organization [facility] Address [address] [place] [address]. [place] [address] [place] [address] Care Team Providers Care Manager Of Financial Reporting Name Role Phone Jacquie Fair NP Primary Care Provider [phone] [phone] Reason for Visit * Reason Comments Rash Patient presents wit h c/o rash all over body from allergic reaction from laser treatment Depression C/o Cymbalta is no l onger helping with symptoms of ADD, lots of trouble with focus Encounter Details Date Type Department Care Team (Late st Contact Info) Description 04/13/2022 8:20 AM SECURITY SME Office Visit [facility] Family Medicine - [place] [address] [facility] [address] [place] [id number] Jacquie Fair NP [address] [place], [place] [address] Candace Harding NP Rash (Patient presents with [...] on file Legal Sex Female 9:41 PM SECURITY SME Gender Identity Female 04/24/2021 2:22 PM SECURITY SME Sexual Orientation Choose not to disclose 2021 2:22 PM SECURITY SME COVID-19 Exposure Response Date Recorded In the last 10 days, have yo u been in contact with someone who was confirmed or suspected to have Coronavirus/COVID-19? No / Unsure 04/13/2022 8:05 AM SECURITY SME documented as of this encounter Last Filed Vital Signs Vital Sign Reading Time Taken Comments Blood Pressure 89/63 04/13/2022 8:23 AM SECURITY SME Pulse 106 04/13/2022 8:23 AM SECURITY SME Temperature 37.1 ??C (98.8 ??F) 04/13/2022 8:23 AM CS T Respiratory Rate 18 04/13/2022 8:23 AM SECURITY SME Oxygen Saturation 100% 04/13/2022 8:23 AM SECURITY SME Inhaled Oxygen Concentration - - Weight 42.8 kg (94 lb 6.4 oz) 04/13/2022 8:23 AM SECURITY SME Height 157.5 cm (5' 2 ) 04/13/2022 8:23 AM SECURITY SME Body Mass Index 17.27 04/13/2022 8:23 AM SECURITY SME documented in this encounter Patient Instructions * Attachments The following attachments cannot be sent through Care Everywhere. * Insomnia Discharge Instructions (German) documented in this encounter Progress Notes * [...] 10 tablet; Refill: 0 Candace Harding, OVIDIO, TERRITORY DEVELOPMENT MANAGER, CROWN BUFFER Cosigned by Stan Lam MD at 04/13/2022 1:21 PM SECURITY SME RITY SME RITY SME documented in this encounter Plan of Treatment [...] 0915, Fredke WellIndications:Rash Given 04/13/2022 9:01 AM SECURITY SME 40 mg Right Dorsal Gluteal documented in this encounter Additional Health Concerns Assessment Noted Time PHQ-9 Depression Total Score: 14 023 8:28 AM SECURITY SME documented as of this encounter Care Teams Manager Of Financial Reporting Relationship Specialty Start Date End Date Jacquie Fair NP [address] [place] [address] PCP - General NURSE PRACTITIONER 06/20/21 documented as of this encounter
--- OUTSIDE RECORDS SUMMARY | 2024-02-27 10:04 | XMS_ITS | Encounter Summary ---
Author Organization [facility] Address [address] [place] [address]. [place] [address] [place] [address] Care Team Providers Care Rock Climbing Instructor Name Role Phone Jacquie Fair NP Primary Care Provider +1 [phone] Encounter Details Date Type Department Care Team [...] on file Legal Sex Female 9:41 PM WELDING SYSTEMS AND EQUIPMENT REPAIRER Gender Identity Female 04/24/2021 2:22 PM WELDING SYSTEMS AND EQUIPMENT REPAIRER Sexual Orientation Choose not to disclose 2021 2:22 PM WELDING SYSTEMS AND EQUIPMENT REPAIRER COVID-19 Exposure Response Date Recorded In the [...] Total Score: 0 02/29/20 21 9:14 AM WELDING SYSTEMS AND EQUIPMENT REPAIRER documented as of this encounter Care Teams Rock Climbing Instructor Relationship Specialty Start Date End Date Jacquie Fair NP [address] [place] [address] PCP - General NURSE PRACTITIONER 06/20/21 documented as of this encounter
--- OUTSIDE RECORDS SUMMARY | 2024-02-27 10:04 | XMS_ITS | Encounter Summary ---
Author Organization [facility] Address [address] [place] [address]. [place] [address] [place] [address] Care Team Providers Care Oxygen System Tester Name Role Phone Jacquie Fair NP Primary Care Provider [phone] [phone] Encounter Details Date Type Department Care Team (Latest Contact Info) Description 12/12/2021 12:30 PM CDT - 12/12/2021 11:59 PM CDT Hospital Encounter [facility] [address] [place] [address] Jacquie Fair, SERVICE EMPLOYEE [address] [place], [place] [id number] Discharge Disposition: Home or Self Care (Routine [...] on file Legal Sex Female 9:41 PM GARMENT LINER Gender Identity Female 04/24/2021 2:22 PM GARMENT LINER Sexual Orientation Choose not to disclose 2021 2:22 PM GARMENT LINER COVID-19 Exposure Response Date Recorded In the [...] Total Score: 0 02/29/20 21 9:14 AM GARMENT LINER documented as of this encounter Care Teams Oxygen System Tester Relationship Specialty Start Date End Date Jacquie Fair NP [address] [place] [address] PCP - General NURSE PRACTITIONER 06/20/21 documented as of this encounter
--- OUTSIDE RECORDS SUMMARY | 2024-02-27 10:04 | XMS_ITS | Encounter Summary ---
Author Organization [facility] Address [address] [place] [address]. [place] [address] [place] [address] Care Team Providers Care Rn Travel Name Role Phone Jacquie Fair NP Primary Care Provider +1 [phone] Encounter Details Date Type Department Care Team [...] on file Legal Sex Female 9:41 PM CAREER LAW CLERK Gender Identity Female 04/24/2021 2:22 PM CAREER LAW CLERK Sexual Orientation Choose not to disclose 2021 2:22 PM CAREER LAW CLERK documented as of this encounter Plan of Treatment Not on file documented as of this encounter Visit Diagnoses Not on filedocumented in this encounter Additional Health Concerns Assessment Noted Time PHQ-9 Depression Total Score: 0 02/29/20 21 9:14 AM CAREER LAW CLERK documented as of this encounter Care Teams Rn Travel Relationship Specialty Start Date End Date Jacquie Fair, TRICIA [address] [place] [address] PCP - General NURSE PRACTITIONER 06/20/21 documented as of this encounter
--- OUTSIDE RECORDS SUMMARY | 2024-02-27 10:04 | XMS_ITS | Encounter Summary ---
Author Organization [facility] Address [address] [place] [address]. [place] [address] [place] [address] Care Team Providers Care Textile Scrap Salvager Name Role Phone Jacquie Fair NP Primary Care Provider +1 [phone] Reason for Referral * Consultation (Urgent) - Closed Specialty Diagnoses / Procedures Referred By Nir small Referred To Contact DERMATOLOGY Diagnoses Rash and nonspecific skin eruption Procedures OFFICE/OUTPT VISIT,NEW,LEVL III OFFICE/OUTPT VISIT,NEW,LEVL IV OFFICE/OUTPT VISIT,NEW,LEVL V OFFICE/OUTPT VISIT,EST,LEVL III OFFICE/OUTPT VISIT,EST,LEVL IV OFFICE/OUTPT VISIT,EST,LEVL V Jacquie Fair NP [address] [place] [address] Phone: tel: fax: [facility] [address] [place] [phone] Phone: tel: fax: Referral ID Status Reason Start Date Expiration Date V isits Requested Visits Authorized [id number] Closed Specialty Services 04/27/2022 04/27/2023 99 99 IVAL RECORDS CLERK Reason for Visit * Reason Comments Sleep Problem Patient presents for a 2 week follow up insomnia and rash no better Encounter Details Date Type Department Care Team (Late st Contact Info) Description 04/27/2022 8:00 AM ARCHIVAL RECORDS CLERK Office Visit [facility] Family [facility] [address] [facility] [address] [place] [address] Jacquie Fair NP [address] [place] [address] Sleep Problem (Patient presents for a 2 [...] on file Legal Sex Female 9:41 PM ARCHIVAL RECORDS CLERK Gender Identity Female 04/24/2021 2:22 PM ARCHIVAL RECORDS CLERK Sexual Orientation Choose not to disclose 2021 2:22 PM ARCHIVAL RECORDS CLERK COVID-19 Exposure Response Date Recorded In the last 10 days, have yo u been in contact with someone who was confirmed or suspected to have Coronavirus/COVID-19? No / Unsure 04/27/2022 8:00 AM ARCHIVAL RECORDS CLERK documented as of this encounter Last Filed Vital Signs Vital Sign Reading Time Taken Comments Blood Pressure 96/65 04/27/2022 8:09 AM ARCHIVAL RECORDS CLERK Pulse 87 04/27/2022 8:09 AM ARCHIVAL RECORDS CLERK Temperature 36.9 ??C (98.5 ??F) 04/27/2022 8:09 AM CS T Respiratory Rate 18 04/27/2022 8:09 AM ARCHIVAL RECORDS CLERK Oxygen Saturation 100% 04/27/2022 8:09 AM ARCHIVAL RECORDS CLERK Inhaled Oxygen Concentration - - Weight 42.6 kg (94 lb) 04/27/2022 8:09 AM ARCHIVAL RECORDS CLERK Height - - Body Mass Index 17.19 04/13/2022 8:23 AM ARCHIVAL RECORDS CLERK documented in this encounter Progress Notes * [...] Out JACQUIE FAIR NP 04/27/2022 9:12 AM IVAL RECORDS CLERK documented in this encounter Plan of Treatment [...] Depression Total Score: 14 023 8:28 AM ARCHIVAL RECORDS CLERK documented as of this encounter Care Teams Textile Scrap Salvager Relationship Specialty Start Date End Date Jacquie Fair NP [address] [place] [address] PCP - General NURSE PRACTITIONER 06/20/21 documented as of this encounter
--- OUTSIDE RECORDS SUMMARY | 2024-02-27 10:04 | XMS_ITS | Encounter Summary ---
Author Organization [facility] Address [address] [place] [address]. [place] [address] [place] [address] Care Team Providers Care Phototypesetting Equipment Monitor Name Role Phone Jacquie Fair NP Primary Care Provider +1 [phone] Encounter Details Date Type Department Care Team [...] on file Legal Sex Female 9:41 PM CADWORX PIPING DESIGNER Gender Identity Female 04/24/2021 2:22 PM CADWORX PIPING DESIGNER Sexual Orientation Choose not to disclose 2021 2:22 PM CADWORX PIPING DESIGNER COVID-19 Exposure Response Date Recorded In the [...] Total Score: 0 02/29/20 21 9:14 AM CADWORX PIPING DESIGNER documented as of this encounter Care Teams Phototypesetting Equipment Monitor Relationship Specialty Start Date End Date Jacquie Fair NP [address] [place] [address] PCP - General NURSE PRACTITIONER 06/20/21 documented as of this encounter
--- OUTSIDE RECORDS SUMMARY | 2024-02-27 10:04 | XMS_ITS | Encounter Summary ---
Author Organization [facility] Address [address] [place] [address]. [place] [address] [place] [address] Care Team Providers Care Horizontal Boring Mill Operator Name Role Phone Jacquie Fair NP Primary Care Provider +1 [phone] Encounter Details Date Type Department Care Team [...] file Legal Sex Female 9:41 PM MEDICAL CLERICAL ASSISTANT Gender Identity Female 04/24/2021 2:22 PM MEDICAL CLERICAL ASSISTANT Sexual Orientation Choose not to disclose 2021 2:22 PM MEDICAL CLERICAL ASSISTANT COVID-19 Exposure Response Date Recorded In the last 10 days, have yo u been in contact with someone who was confirmed or suspected to have Coronavirus/COVID-19? No / Unsure 04/13/2022 8:05 AM MEDICAL CLERICAL ASSISTANT documented as of this encounter Plan of Treatment Not on file documented as of this encounter Visit Diagnoses Not on filedocumented in this encounter Additional Health Concerns Assessment Noted Time PHQ-9 Depression Total Score: 14 023 8:28 AM MEDICAL CLERICAL ASSISTANT documented as of this encounter Care Teams Horizontal Boring Mill Operator Relationship Specialty Start Date End Date Jacquie Fair NP [address] [place] [address] PCP - General NURSE PRACTITIONER 06/20/21 documented as of this encounter
--- OUTSIDE RECORDS SUMMARY | 2024-02-27 10:04 | XMS_ITS | Encounter Summary ---
Author Organization [facility] Address [address] [place] [address]. [place] [address] [place] [address] Care Team Providers Care Cake Cutter Machine Name Role Phone Jacquie Fair NP Primary Care Provider +1 [phone] Encounter Details Date Type Department Care Team (Latest Contact Info) Description 02/28/2022 10:28 AM STRAP SEWER - 02/28/2022 11:59 PM STRAP SEWER Hospital Encounter [facility] [address] [place] [address] Josh Akhtar, DO [address] [facility] [address] [place] [phone] Discharge Disposition: Home or Self Care [...] on file Legal Sex Female 9:41 PM STRAP SEWER Gender Identity Female 04/24/2021 2:22 PM STRAP SEWER Sexual Orientation Choose not to disclose 2021 2:22 PM STRAP SEWER documented as of this encounter Medications at [...] SAT PANEL (IRON,IBC,%SAT) Routine 02/28/2022 9:25 AM STRAP SEWER Iron deficiency anemia, unspecified iron deficiency anemia type COMPREHENSIVE METABOLIC PANEL Routine 02/28/2022 9:25 AM STRAP SEWER Iron deficiency anemia, unspecified iron deficiency anemia type CBC W/DIFF AUTOMATED Routine 02/28/2022 9:25 AM STRAP SEWER Iron deficiency anemia, unspecified iron deficiency anemia type FERRITIN Routine 02/28/2022 9:25 AM STRAP SEWER Iron deficiency anemia, unspecified iron deficiency anemia type documented in this encounter Results * (ABNORMAL) CBC W/DIFF AUTOMATED (02/28/2022 9:25 AM STRAP SEWER) WBC 5.91 4.50 - 11.00 x10'3/uL 02/28/2022 10:57 AM STRAP SEWER [facility] RBC 4.25 4.20 - 5.40 x10'6/uL 02/28/2022 10:57 AM [facility] HGB 12.3 12.0 - 16.0 G/DL 02/28/2022 10:57 AM [facility] HCT 38.3 38.0 - 48.0 % 02/28/2022 10:57 AM [facility] MCV 90.1 81.0 - 99.0 FL 02/28/2022 10:57 AM [facility] MCH 28.9 27.0 - 31.0 PG 02/28/2022 10:57 AM [facility] MCHC 32.1 32.0 - 36.0 G/DL 02/28/2022 10:57 AM [facility] RDW 14.8(H) 11.5 - 14.5 % 02/28/2022 10:57 AM [facility] PLT 258 130 - 400 x10'3/uL 02/28/2022 10:57 AM [facility] MPV 10.2 9.3 - 12.2 FL 02/28/2022 10:57 AM [facility] CBC COMMENT AUTOMATED RBC MORPHOLOGY AND PLATELET EVALUATION NORMAL 02/28/2022 10:57 AM [facility] NEUTROPHILS % 71.0 % 02/28/2022 10:57 AM [facility] LYMPHOCYTES % 13.5 % 02/28/2022 10:57 AM [facility] MONOCYTES % 9.8 % 02/28/2022 10:57 AM [facility] EOSINOPHILS 4.4 % 02/28/2022 10:57 AM [facility] BASOPHILS 1.0 % 02/28/2022 10:57 AM [facility] IMMATURE GRANS % 0.3 % 02/29/20 10:57 AM [facility] NRBC 0.0 % 02/28/2022 10:57 AM [facility] ABS. NEUTROPHILS TOTAL 4.19 1.80 - 7.70 x10'3/uL 02/28/2022 10:57 AM [facility] ABS. LYMPHOCYTES 0.80(L) 1.00 - 4.80 x10'3/uL 02/28/2022 10:57 AM [facility] ABS. MONOCYTES 0.58 0.24 - 0.86 x10'3/uL 02/28/2022 10:57 AM [facility] ABS. EOSINOPHILS 0.26 0.04 - 0.36 x10'3/uL 02/28/2022 10:57 AM [facility] ABS. BASOPHILS 0.06 0.01 - 0.08 x10'3/uL 02/28/2022 10:57 AM [facility] ABS. IMMATURE GRANULOCYTES 0.02 0.00 - 0.49 x10'3/uL 02/28/2022 10:57 AM [facility] ABS. NUCLEATED RBC'S 0.00 0.00 - 0.01 x10'3/uL 02/28/2022 10:57 AM [facility] 02/28/2022 9:25 AM [facility] us Josh Akhtar DO LABORATORY Final Result [facility] [address] [place] [address], [place] [phone] * (ABNORMAL) COMPREHENSIVE METABOLIC PANEL (02/28/2022 9:25 AM STRAP SEWER) [facility] GLUCOSE 47(L) 70 - 99 MG/DL 02/28/2022 11:05 AM [facility] BUN 15 7 - 18 MG/DL 02/28/2022 11:05 AM [facility] CREATININE S/P/B 0.74 0.55 - 1.02 MG/DL 02/28/2022 11:05 AM [facility] SODIUM S/P/B 142 136 - 145 MMOL/L 02/28/2022 11:05 AM [facility] POTASSIUM S/P/B 3.5 3.5 - 5.1 MMOL/L 02/28/2022 11:05 AM [facility] CHLORIDE S/P/B 106 100 - 108 MMOL/L 02/28/2022 11:05 AM [facility] CO2 26.8 21 - 32 MMOL/L 02/28/2022 11:05 AM [facility] CALCIUM S/P/B 8.4(L) 8.5 - 10.1 MG/DL 02/28/2022 11:05 AM [facility] BILIRUBIN TOTAL S/P/B 0.3 0.2 - 1.2 MG/DL 02/28/2022 11:05 AM [facility] Comment: THIS ASSAY IS NOT RECOMMENDED FOR PATIENTS UNDERGOING TREATMENT WITH ELTROMBOPAG DUE TO THE POTENTIAL FOR FALSELY ELEVATED RESULTS. TOTAL PROTEIN S/P/B 6.5 6.4 - 8.2 G/DL 02/28/2022 11:05 AM [facility] ALBUMIN S/P/B 3.7 3.4 - 5.0 G/DL 02/28/2022 11:05 AM [facility] AST 40(H) 15 - 37 U/L 02/28/2022 11:05 AM [facility] ALT 24 14 - 55 U/L 02/28/2022 11:05 AM [facility] ALKALINE PHOSPHATASE S/P/B 43(L) 50 - 136 U/L 02/28/2022 11:05 AM [facility] ANION GAP 9.2 5 - 15 MMOL/L 02/28/2022 11:05 AM [facility] BUN CREATININE RATIO 20.3 6 - 26 02/28/2022 11:05 AM [facility] A/G RATIO 1.3 1.0 - 2.0 RATIO 02/28/2022 11:05 AM [facility] GFR ESTIMATE >90 >90 ML/MIN/1.7 3 M2 02/28/2022 11:05 AM [facility] Comment: NOTE: eGFR is not calculated for patients <18 years of age. This is an estimated GFR calculation using the new CKD EPI creatinine equation without race and so does not require a correction factor for race. This estimated GFR should not be used for calculating drug doses. 02/28/2022 9:25 AM STRAP SEWER us Josh Akhtar DO LABORATORY Final Result [facility] [address] [place] [address], [place] [phone] * FERRITIN (02/28/2022 9:25 AM STRAP SEWER) FERRITIN 329.0 8.0 - 388.0 NG/ML 02/28/2022 7:12 PM STRAP SEWER [facility] 02/28/2022 9:25 AM STRAP SEWER us Josh Akhtar DO LABORATORY Final Result [facility] [address] [place] [address], [place] [phone] * (ABNORMAL) IRON SAT PANEL (IRON,IBC,%SAT) (02/28/2022 9:25 AM STRAP SEWER) IRON 39(L) 50 - 170 MCG/DL 02/28/2022 7:12 PM STRAP SEWER [facility] IRON BINDING CAPACITY 230(L) 250 - 450 MCG/DL 02/28/2022 7:12 PM STRAP SEWER [facility] IRON SATURATION 17(L) 20 - 55 % 7:12 PM STRAP SEWER [facility] 02/28/2022 9:25 AM STRAP SEWER us Josh Akhtar DO LABORATORY Final Result [facility] [address] [place] [address], [place] [phone] documented in this encounter Visit Diagnoses Diagnosis Iron deficiency anemia, unspecified iron deficiency anemia type documented in this encounter Additional Health Concerns Assessment Noted Time PHQ-9 Depression Total Score: 0 02/29/20 9:14 AM STRAP SEWER documented as of this encounter Care Teams Cake Cutter Machine Relationship Specialty Start Date End Date Jacquie Fair NP [address] [place] [address] PCP - General NURSE PRACTITIONER 06/20/21 documented as of this encounter
--- OUTSIDE RECORDS SUMMARY | 2024-02-27 10:04 | XMS_ITS | Encounter Summary ---
Author Organization [facility] Address [address] [place] [address]. [place] [address] [place] [address] Care Team Providers Care Spring Intern Name Role Phone Jacquie Fair NP Primary Care Provider +1 [phone] Encounter Details Date Type Department Care Team (Late st Contact Info) Description 02/16/2022 Orders Only [facility] Medical Group Family Medicine - [place] [address] [facility] [address] [place] [id number] Jacquie Fair NP [address] [place] [address] Social History Tobacco Use Types Packs/Day Years [...] on file Legal Sex Female 9:41 PM SPOOL CLEANER HAND Gender Identity Female 04/24/2021 2:22 PM SPOOL CLEANER HAND Sexual Orientation Choose not to disclose 2021 2:22 PM SPOOL CLEANER HAND documented as of this encounter Progress Notes * Jacquie Fair NP - 02/16/2022 10:32 AM CST Pt brought son in today for illness and tested positive for influenza B. Pt's mother currently is well. Pt is interested in script for tamiflu d/t exposure. Script sent. L CLEANER HAND documented in this encounter Plan of Treatment Not on file documented as of this encounter Visit Diagnoses Diagnosis Exposure to influenza- Primary Contact with or exposure to other viral diseases documented in this encounter Additional Health Concerns Assessment Noted Time PHQ-9 Depression Total Score: 0 02/29/20 21 9:14 AM SPOOL CLEANER HAND documented as of this encounter Care Teams Spring Intern Relationship Specialty Start Date End Date Jacquie Fair NP [address] [place] [address] PCP - General NURSE PRACTITIONER 06/20/21 documented as of this encounter
--- OUTSIDE RECORDS SUMMARY | 2024-02-27 10:04 | XMS_ITS | Encounter Summary ---
Author Organization [facility] Address [address] [place] [address]. [place] [address] [place] [address] Care Team Providers Care Mechanical Design Engineer Name Role Phone Jacquie Fair NP Primary Care Provider +1 -[phone] Encounter Details Date Type Department Care Team (Latest Contact Info) Description 12/12/2021 12:29 PM CDT Hospital Encounter [facility] [address] [place], [place] [id number] Jacquie Fair, TRICIA [address] [place], [place] [phone] Discharge Disposition: Home or Self Care (Routine [...] file Legal Sex Female 9:41 PM JUNIOR ART DIRECTOR Gender Identity Female 04/24/2021 2:22 PM JUNIOR ART DIRECTOR Sexual Orientation Choose not to disclose 2021 2:22 PM JUNIOR ART DIRECTOR COVID-19 Exposure Response Date Recorded In [...] SPEC DESCRIPTION BLOOD 12/12/2021 12:46 PM CDT [facility] SPECIAL REQUESTS NO SPECIAL REQUEST 12/12/2021 12:46 PM CDT [facility] CULTURE RESULT NO GROWTH 5 DAYS 12/17/2021 1:02 AM CDT [facility] BLOOD SPECIMEN OBTAINED FOR BLOOD CULTURE / Unknown 12/12/2021 12:50 PM CDT 12/12/2021 12:51 PM CDT Jacquie Fair NP MICROBIOLOGY - GENERAL OR DERABLES Final Result [facility] [address] [place] [address], * PROCALCITONIN (PCT) (12/12/2021 12:45 PM CDT) [facility] Procalcitonin <0.05 0.00 - 0.25 NG/ML 12/12/2021 2:05 PM CDT [facility] Comment: PROCALCITONIN INTERPRETATION GUIDELINES LOWER [...] 12/12/2021 12:4 5 PM CDT Jacquie Fair CONCRETE INSPECTOR LABORATORY Final Res ult Performing Organization Address [facility] de Phone Number [facility] [address] [place] [address], [place] [phone] * (ABNORMAL) C-REACTIVE PROTEIN (12/12/2021 12:45 PM CDT) C-REACTIVE PROTEIN 2.10(H) <0.9 mg/dL 12/12/2021 1:39 PM CDT [facility] 12/12/2021 12:4 5 PM CDT Jacquie Fair CONCRETE INSPECTOR LABORATORY Final Res ult Performing Organization Address [facility] de Phone Number [facility] [address] [place] [address], [place] [phone] * (ABNORMAL) SED RATE, ERYTHROCYTE (ESR) (12/12/2021 12:45 PM CDT) ESR 26(H) 0 - 20 MM/HR 12/12/2021 1:43 PM CDT [facility] 12/12/2021 12:4 5 PM CDT Jacquie Fair CONCRETE INSPECTOR LABORATORY Final Res ult Performing Organization Address [facility] de Phone Number [facility] [address] [place] [address], * CULTURE, BACTERIA, BLOOD (12/12/2021 12:45 PM CDT) SPEC DESCRIPTION BLOOD 12/12/2021 12:43 PM CDT [facility] SPECIAL REQUESTS NO SPECIAL REQUEST 12/12/2021 12:43 PM CDT [facility] CULTURE RESULT NO GROWTH 5 DAYS 12/17/2021 1:02 AM CDT [facility] BLOOD SPECIMEN OBTAINED FOR BLOOD CULTURE / Unknown 12/12/2021 12:45 PM CDT 12/12/2021 12:46 PM CDT Jacquie Fair NP MICROBIOLOGY - GENERAL OR DERABLES Final Result Performing Organization Address [facility] Co de Phone Number [facility] [address] [place] [address], * COMPREHENSIVE METABOLIC PANEL (12/12/2021 12:45 PM CDT) Pathologist [facility] GLUCOSE 90 70 - 99 MG/DL 12/12/2021 1:39 PM CDT [facility] BUN 7 7 - 18 MG/DL 12/12/2021 1:39 PM CDT [facility] CREATININE S/P/B 0.75 0.55 - 1.02 MG/DL 12/12/2021 1:39 PM CDT [facility] SODIUM S/P/B 139 136 - 145 MMOL/L 12/12/2021 1:39 PM CDT [facility] POTASSIUM S/P/B 3.7 3.5 - 5.1 MMOL/L 12/12/2021 1:39 PM CDT [facility] CHLORIDE S/P/B 102 100 - 108 MMOL/L 12/12/2021 1:39 PM [facility] CO2 27.6 21 - 32 MMOL/L 12/12/2021 1:39 PM [facility] CALCIUM S/P/B 8.8 8.5 - 10.1 MG/DL 12/12/2021 1:39 PM [facility] BILIRUBIN TOTAL S/P/B 0.3 0.2 - 1.2 MG/DL 12/12/2021 1:39 PM [facility] TOTAL PROTEIN S/P/B 7.4 6.4 - 8.2 G/DL 12/12/2021 1:39 PM [facility] ALBUMIN S/P/B 4.1 3.4 - 5.0 G/DL 12/12/2021 1:39 PM [facility] AST 23 15 - 37 U/L 12/12/2021 1:39 PM [facility] ALT 26 14 - 55 U/L 12/12/2021 1:39 PM [facility] ALKALINE PHOSPHATASE S/P/B 55 50 - 136 U/L 12/12/2021 1:39 PM [facility] ANION GAP 9.4 5 - 15 MMOL/L 12/12/2021 1:39 PM [facility] BUN CREATININE RATIO 9.3 6 - 26 12/12/2021 1:39 PM [facility] A/G RATIO 1.2 1.0 - 2.0 RATIO 12/12/2021 1:39 PM [facility] GFR ESTIMATE >90 >90 ML/MIN/1.7 3 M2 12/12/2021 1:39 PM [facility] Comment: NOTE: eGFR is not calculated for patients <18 years of age. This is an estimated GFR calculation using the new CKD EPI creatinine equation without race and so does not require a correction factor for race. This estimated GFR should not be used for calculating drug doses. 12/12/2021 12:4 5 PM CDT us Jacquie Fair CONCRETE INSPECTOR LABORATORY Final Res ult [facility] [address] [place] [address], [place] [phone] * (ABNORMAL) CBC W/DIFF AUTOMATED (12/12/2021 12:45 PM CDT) WBC 10.1 4.4 - 11.0 x10'3/uL 12/12/2021 1:22 PM CDT [facility] RBC 3.89(L) 4.50 - 5.10 x10'6/uL 12/12/2021 1:22 PM CDT [facility] HGB 11.8(L) 12.3 - 15.3 G/DL 12/12/2021 1:22 PM CDT [facility] HCT 34.7(L) 35.9 - 44.6 % 12/12/2021 1:22 PM CDT [facility] MCV 89.2 80.0 - 96.0 FL 12/12/2021 1:22 PM CDT [facility] MCH 30.3 25.3 - 30.9 PG 12/12/2021 1:22 PM CDT [facility] MCHC 34.0 31.0 - 34.1 G/DL 12/12/2021 1:22 PM CDT [facility] RDW 12.8 12.4 - 15.1 % 12/12/2021 1:22 PM CDT [facility] PLT 327 151 - 353 x10'3/uL 12/12/2021 1:22 PM CDT [facility] MPV 9.7 9.6 - 12.0 FL 12/12/2021 1:22 PM CDT [facility] RBC MORPHOLOGY NORMAL 12/12/2021 1:22 PM CDT [facility] PLT MORPH. NORMAL 12/12/2021 1:22 PM CDT [facility] WBC MORPHOLOGY NORMAL 12/12/2021 1:22 PM CDT [facility] LYMPHOCYTES % 11.4(L) 15.8 - 45.0 % 12/12/2021 1:22 PM CDT [facility] NEUTROPHILS % 80.1(H) 42.1 - 71.9 % 12/12/2021 1:22 PM CDT [facility] MONOCYTES % 5.4(L) 5.7 - 12.5 % 12/12/2021 1:22 PM CDT [facility] EOSINOPHILS 2.5 0.0 - 5.6 % 12/12/2021 1:22 PM CDT [facility] BASOPHILS 0.3 0.0 - 1.3 % 12/12/2021 1:22 PM CDT [facility] ABS. NEUTROPHILS 8.06(H) 1.40 - 6.00 x10'3/uL 12/12/2021 1:22 PM CDT [facility] IMMATURE GRANS % 0.3 0.0 - 0.5 % 12/12/2021 1:22 PM CDT [facility] ABS. LYMPHOCYTES 1.15 0.80 - 4.70 x10'3/uL 12/12/2021 1:22 PM CDT [facility] 12/12/2021 12:4 5 PM CDT us Jacquie Fair CONCRETE INSPECTOR LABORATORY Final Res ult [facility] [address] [place] [address], documented in this encounter Visit Diagnoses Diagnosis Upper respiratory tract infection, unspecified type Acute cough documented in this encounter Additional Health Concerns Infection Onset Date Last Indicated Resolved Time COVID-19 Rule Out 12/12/2021 12/12/2021 12/13/2021 1:56 PM CDT Assessment Noted Time PHQ-9 Depression Total Score: 0 02/29/20 21 9:14 AM JUNIOR ART DIRECTOR documented as of this encounter Care Teams Mechanical Design Engineer Relationship Specialty Start Date End Date Jacquie Fair, TRICIA [address] [place] [address] PCP - General NURSE PRACTITIONER 06/20/21 documented as of this encounter
--- OUTSIDE RECORDS SUMMARY | 2024-02-27 10:04 | XMS_ITS | Encounter Summary ---
Author Organization [facility] Address [address] [place] [address]. [place] [address] [place] [address] Care Team Providers Care [employer] Name Role Phone Jacquie Fair NP Primary Care Provider [phone] Encounter Details Date Type Department Care Team [...] on file Legal Sex Female 9:41 PM CASING [facility]OWER Gender Identity Female 04/24/2021 2:22 PM [facility] Sexual Orientation Choose not to disclose 2021 2:22 PM [facility]OWER documented as of this encounter Plan of Treatment Not on file documented as of this encounter Visit Diagnoses Not on filedocumented in this encounter Additional Health Concerns Assessment Noted Time PHQ-9 Depression Total Score: 0 02/29/20 9:14 AM CASING [facility]OWER documented as of this encounter Care Teams [employer] Relationship Specialty Start Date End Date Jacquie Fair, TRICIA [address] [place] [address] PCP - General NURSE PRACTITIONER 06/20/21 documented as of this encounter
--- OUTSIDE RECORDS SUMMARY | 2024-02-27 10:04 | XMS_ITS | Encounter Summary ---
Author Organization [facility] Address [address] [place] [address]. [place] [address] [place] [address] Care Team Providers Care Metal Bonder Name Role Phone Jacquie Fair NP Primary Care Provider +1 [phone] Reason for Visit * Reason Onset Date Comments Medication 12/12/2021 Encounter Details Date Type Department Care Team (Late st Contact Info) Description 12/12/2021 Telephone [facility] Family Medicine - [place] [address] [facility] [address] [place] [address] [phone] Jacquie Fair, TRICIA [address] [place] [address] Medication Social History Tobacco Use [...] on file Legal Sex Female 9:41 PM MECHANICAL SYSTEM TECHNICIAN Gender Identity Female 04/24/2021 2:22 PM MECHANICAL SYSTEM TECHNICIAN Sexual Orientation Choose not to disclose 2021 2:22 PM MECHANICAL SYSTEM TECHNICIAN COVID-19 Exposure Response Date Recorded In [...] Total Score: 0 02/29/20 21 9:14 AM MECHANICAL SYSTEM TECHNICIAN documented as of this encounter Care Teams Metal Bonder Relationship Specialty Start Date End Date Jacquie Fair NP [address] [place] [address] PCP - General NURSE PRACTITIONER 06/20/21 documented as of this encounter
--- OUTSIDE RECORDS SUMMARY | 2024-02-27 10:04 | XMS_ITS | Encounter Summary ---
Author Organization [facility] Address [address] [place] [address]. [place] [address] [place] [address] Care Team Providers Care Leather Patcher Name Role Phone Jacquie Fair NP Primary Care Provider +1 -[phone] Encounter Details Date Type Department Care Team [...] on file Legal Sex Female 9:41 PM APPLIED PSYCHOLOGY TEACHER Gender Identity Female 04/24/2021 2:22 PM APPLIED PSYCHOLOGY TEACHER Sexual Orientation Choose not to disclose 2021 2:22 PM APPLIED PSYCHOLOGY TEACHER documented as of this encounter Plan of Treatment Not on file documented as of this encounter Visit Diagnoses Not on filedocumented in this encounter Additional Health Concerns Assessment Noted Time PHQ-9 Depression Total Score: 14 023 8:28 AM APPLIED PSYCHOLOGY TEACHER documented as of this encounter Care Teams Leather Patcher Relationship Specialty Start Date End Date Jacquie Fair NP [address] [place] [address] PCP - General NURSE PRACTITIONER 06/20/21 documented as of this encounter
--- OUTSIDE RECORDS SUMMARY | 2024-02-27 10:05 | XMS_ITS | Encounter Summary ---
Author Organization [facility] Address [address] [place] [address]. [place] [address] [place] [address] Care Team Providers Care Operations Research Group Manager Name Role Phone Jacquie Fair NP Primary Care Provider +1 [phone] Reason for Visit * Reason Comments Hearing Loss * Audiology Exam (Routine) - Closed Specialty Diagnoses / Procedures Referred By Nir small Referred To Contact AUDIOLOGY / [facility] Audiology Diagnoses Bilateral hearing loss, unspecified hearing loss type Jacquie Fair, TRICIA [address] [place] [address] Phone: tel: fax: [facility] [address] [place] [address] Phone: tel: fax: Referral ID Status Reason Start Date Expiration Date V isits Requested Visits Authorized [id number] Closed Specialty Services 07/05/2021 08/04/2022 1 1 Encounter Details Date Type Department Care Team (Late st Contact Info) Description 10/17/2021 8:00 AM CDT Office Visit [facility] Audiology [address] [place] [address] [phone] Juana Stallworth AUD [address] [place] [address] Hearing Loss Social History Tobacco Use Types [...] on file Legal Sex Female 9:41 PM CYBER OPERATOR Gender Identity Female 04/24/2021 2:22 PM CYBER OPERATOR Sexual Orientation Choose not to disclose 2021 2:22 PM CYBER OPERATOR COVID-19 Exposure Response Date Recorded In [...] bilaterally. Word recognition scores were excellent. The SRT/GRANULATOR MACHINE OPERATOR were in good agreement. Recommendations: Patient to follow-up with ENT/PCP. Audiological assessment if changes/concerns arise. Use of hearing protection when in the presence of noise. APD testing if interested. Domingo Schmidt Controlled Atmospheric Furnace Brazer [facility]???[facility] documented in this encounter Plan of Treatment Not on file documented as of this encounter Visit Diagnoses Diagnosis Normal hearing noted on examination- Primary Tinnitus, bilateral Unspecified tinnitus Dizziness Dizziness and giddiness documented in this encounter Additional Health Concerns Assessment Noted Time PHQ-9 Depression Total Score: 0 02/29/20 9:14 AM CYBER OPERATOR documented as of this encounter Care Teams Operations Research Group Manager Relationship Specialty Start Date End Date Jacquie Fair NP [address] [place] [address] [place] [address] PCP - General NURSE PRACTITIONER 06/20/21 documented as of this encounter
--- OUTSIDE RECORDS SUMMARY | 2024-02-27 10:05 | XMS_ITS | Encounter Summary ---
Author Organization [facility] Address [address] [place] [address]. [place] [address] [place] [address] Care Team Providers Care Data Developer Name Role Phone Jacquie Fair NP Primary Care Provider [phone] [phone] Encounter Details Date Type Department Care Team [...] on file Legal Sex Female 9:41 PM PRISONER CLASSIFICATION INTERVIEWER Gender Identity Female 04/24/2021 2:22 PM PRISONER CLASSIFICATION INTERVIEWER Sexual Orientation Choose not to disclose 2021 2:22 PM PRISONER CLASSIFICATION INTERVIEWER COVID-19 Exposure Response Date Recorded In the [...] Total Score: 0 02/29/20 21 9:14 AM PRISONER CLASSIFICATION INTERVIEWER documented as of this encounter Care Teams Data Developer Relationship Specialty Start Date End Date Jacquie Fair, TRICIA [address] [place] [address] [place] [address] PCP - General NURSE PRACTITIONER 06/20/21 documented as of this encounter
--- OUTSIDE RECORDS SUMMARY | 2024-02-27 10:05 | XMS_ITS | Encounter Summary ---
Author Organization [facility] Address [address] [place] [address]. [place] [address] [place] [address] Care Team Providers Care House Carpenter Name Role Phone Jacquie Fair NP Primary Care Provider +1 [phone] Encounter Details Date Type Department Care Team [...] on file Legal Sex Female 9:41 PM DIGITAL COMMUNITY MANAGER Gender Identity Female 04/24/2021 2:22 PM DIGITAL COMMUNITY MANAGER Sexual Orientation Choose not to disclose 2021 2:22 PM DIGITAL COMMUNITY MANAGER COVID-19 Exposure Response Date Recorded In [...] Total Score: 0 02/29/20 21 9:14 AM DIGITAL COMMUNITY MANAGER documented as of this encounter Care Teams House Carpenter Relationship Specialty Start Date End Date Jacquie Fair NP [address] [facility] [address] [place] [address] PCP - General NURSE PRACTITIONER 06/20/21 documented as of this encounter
--- OUTSIDE RECORDS SUMMARY | 2024-02-27 10:05 | XMS_ITS | Encounter Summary ---
Author Organization [facility] Address [address] [place] [address]. [place] [address] [place] [address] Care Team Providers Care Workers Compensation Attorney Name Role Phone Jacquie Fair NP Primary Care Provider [phone] [phone] Reason for Visit * Reason Comments Cough Cough, headache, ear s rings, sweaty, sinus drainage x 10 days Encounter Details Date Type Department Care Team (Late st Contact Info) Description 10/04/2021 1:40 PM CDT Office Visit [facility] Family Medicine - [place] [address] [facility] [address] [place] [address] [id number] Jacquie Fair, SENIOR ECONOMIST [address] [place] [address] [place] [address] [phone] Cough (Cough, headache, ears rings, sweaty, sinus [...] on file Legal Sex Female 9:41 PM WHARF LABORER Gender Identity Female 04/24/2021 2:22 PM WHARF LABORER Sexual Orientation Choose not to disclose 2021 2:22 PM WHARF LABORER COVID-19 Exposure Response Date Recorded In the [...] canal normal. Nose: Nose normal. Mouth/Throat: Lips: Gause. Mouth: Mucous membranes are moist. Cardiovascular: Rate [...] Total Score: 0 02/29/20 21 9:14 AM WHARF LABORER documented as of this encounter Care Teams Workers Compensation Attorney Relationship Specialty Start Date End Date Jacquie Fair NP [address] [place] [address] PCP - General NURSE PRACTITIONER 06/20/21 documented as of this encounter
--- OUTSIDE RECORDS SUMMARY | 2024-02-27 10:05 | XMS_ITS | Encounter Summary ---
Author Organization [facility] Address [address] [place] [address]. [place] [address] [place] [address] Care Team Providers Care Skidder Lever Operator Name Role Phone Jacquie Fair NP Primary Care Provider +1 -[phone] Encounter Details Date Type Department Care Team [...] file Legal Sex Female 9:41 PM SECURITY LEAD Gender Identity Female 04/24/2021 2:22 PM SECURITY LEAD Sexual Orientation Choose not to disclose 2021 2:22 PM SECURITY LEAD COVID-19 Exposure Response Date Recorded In the [...] Total Score: 0 02/29/20 21 9:14 AM SECURITY LEAD documented as of this encounter Care Teams Skidder Lever Operator Relationship Specialty Start Date End Date Jacquie Fair NP [address] [facility] [address] [place] [address] PCP - General NURSE PRACTITIONER 06/20/21 documented as of this encounter
--- OUTSIDE RECORDS SUMMARY | 2024-02-27 10:05 | XMS_ITS | Encounter Summary ---
Author Organization [facility] Address [address] [place] [address]. [place] [address] [place] [address] Care Team Providers Care Final Canoe Inspector Name Role Phone Jacquie Fair NP Primary Care Provider +1 [phone] Encounter Details Date Type Department Care Team [...] on file Legal Sex Female 9:41 PM RESEARCH ADMINISTRATOR Gender Identity Female 04/24/2021 2:22 PM RESEARCH ADMINISTRATOR Sexual Orientation Choose not to disclose 2021 2:22 PM RESEARCH ADMINISTRATOR COVID-19 Exposure Response Date Recorded In the [...] Total Score: 0 02/29/20 21 9:14 AM RESEARCH ADMINISTRATOR documented as of this encounter Care Teams Final Canoe Inspector Relationship Specialty Start Date End Date Jacquie Fair, TRICIA [address] [place] [address] [place] [address] PCP - General NURSE PRACTITIONER 06/20/21 documented as of this encounter
--- OUTSIDE RECORDS SUMMARY | 2024-02-27 10:05 | XMS_ITS | Encounter Summary ---
Author Organization [facility] Address [address] [place] [address]. [place] [address] [place] [address] Care Team Providers Care Music Leader Name Role Phone Jacquie Fair NP Primary Care Provider +1 [phone] Encounter Details Date Type Department Care Team [...] on file Legal Sex Female 9:41 PM STOCK CLERK Gender Identity Female 04/24/2021 2:22 PM STOCK CLERK Sexual Orientation Choose not to disclose 2021 2:22 PM STOCK CLERK COVID-19 Exposure Response Date Recorded In [...] Total Score: 0 02/29/20 21 9:14 AM STOCK CLERK documented as of this encounter Care Teams Music Leader Relationship Specialty Start Date End Date Jacquie Fair NP [address] [facility] [address] [place] [address] PCP - General NURSE PRACTITIONER 06/20/21 documented as of this encounter
--- OUTSIDE RECORDS SUMMARY | 2024-02-27 10:05 | XMS_ITS | Encounter Summary ---
Author Organization [facility] Address [address] [place] [address]. [place] [address] [place] [address] Care Team Providers Care Estimator Jewelry Name Role Phone Jacquie Fair NP Primary Care Provider +1 -[phone] Encounter Details Date Type Department Care Team [...] on file Legal Sex Female 9:41 PM MUD ANALYSIS WELL LOGGING CAPTAIN Gender Identity Female 04/24/2021 2:22 PM MUD ANALYSIS WELL LOGGING CAPTAIN Sexual Orientation Choose not to disclose 2021 2:22 PM MUD ANALYSIS WELL LOGGING CAPTAIN COVID-19 Exposure Response Date Recorded In the [...] Depression Total Score: 0 02/29/20 9:14 AM MUD ANALYSIS WELL LOGGING CAPTAIN documented as of this encounter Care Teams Estimator Jewelry Relationship Specialty Start Date End Date Jacquie Fair NP [address] [facility] [address] [place] [address] PCP - General NURSE PRACTITIONER 06/20/21 documented as of this encounter
--- OUTSIDE RECORDS SUMMARY | 2024-02-27 10:05 | XMS_ITS | Encounter Summary ---
Author Organization [facility] Address [facility] [place] [address] [place] [address] Care Team Providers Care Process Chemist Name Role Phone Jacquie Fair NP Primary Care Provider +1 [phone] Reason for Visit * Reason Comments Abdominal Pain Abdominal pain and b loating last 6 weeks seems to have gotten better. * Consultation (Urgent) - Closed Specialty Diagnoses / Procedures Referred By Nir small Referred To Contact GASTROENTEROLOGY Diagnoses Antral gastritis Anemia, unspecified type Jacquie Fair, TRICIA [address] [place] [address] Phone: tel: fax: Garret John MD [address] [facility] [address] [place] [address] Phone: tel: fax: Referral ID Status Reason Start Date Expiration Date Visits Re quested Visits Authorized [id number] Closed 07/07/2021 08/08/2022 100 100 Encounter Details Date Type Department Care Team (Latest Contact Info) Description 08/16/2021 12:40 PM CDT Office Visit [facility] Medical Group Multispecialty Care - [facility] [address] [facility] [address] [place] [address] Garret John MD [address] [place] [address] [address] [place] [address] Abdominal Pain (Abdominal pain and bloating last [...] on file Legal Sex Female 9:41 PM PROCESS ASSISTANT Gender Identity Female 04/24/2021 2:22 PM PROCESS ASSISTANT Sexual Orientation Choose not to disclose 2021 2:22 PM PROCESS ASSISTANT COVID-19 Exposure Response Date Recorded In [...] She was anemic and so was a nurse practitioner manager recently who told her that was likely [...] of heavy menses. Patient has seen a nurse practitioner manager which seems to agree that it is [...] Total Score: 0 02/29/20 21 9:14 AM PROCESS ASSISTANT documented as of this encounter Care Teams Process Chemist Relationship Specialty Start Date End Date Jacquie Fair NP [address] [place] [address] [place] [address] PCP - General NURSE PRACTITIONER 06/20/21 documented as of this encounter
--- OUTSIDE RECORDS SUMMARY | 2024-02-27 10:06 | XMS_ITS | Encounter Summary ---
Author Organization [facility] Address [address] [place] [address]. [place], [place] [address] [place] [address] Care Team Providers Care Utility Arborist Name Role Phone John Pinedo MD Primary Care Provider +1 -[phone] Encounter Details Date Type Department Care Team [...] on file Legal Sex Female 9:41 PM SPIDER ASSEMBLER Gender Identity Female 04/24/2021 2:22 PM SPIDER ASSEMBLER Sexual Orientation Choose not to disclose 2021 2:22 PM SPIDER ASSEMBLER COVID-19 Exposure Response Date Recorded In [...] Depression Total Score: 0 02/29/20 9:14 AM SPIDER ASSEMBLER documented as of this encounter Care Teams Utility Arborist Relationship Specialty Start Date End Date John Pinedo MD PCP - General INTERNAL MEDICINE 02/28/21 05/28/21 documented as of this encounter
--- OUTSIDE RECORDS SUMMARY | 2024-02-27 10:06 | XMS_ITS | Encounter Summary ---
Author Organization [facility] Address [address] [place] [address]. [place] [address] [place] [address] Care Team Providers Care Dependency Counselor Name Role Phone Jacquie Fair NP Primary Care Provider +1 -[phone] Reason for Referral * Audiology Exam (Routine) - Closed Specialty Diagnoses / Procedures Referred By Contmarcella t Referred To Contact AUDIOLOGY / [facility] Audiology Diagnoses Bilateral hearing loss, unspecified hearing loss type Jacquie Fair NP [address] [place] [address] [place] [address] Phone: tel: fax: [facility] Audiology [address] [place] [address] Phone: tel: fax: Referral ID Status Reason Start Date Expiration Date V isits Requested Visits Authorized [id number] Closed Specialty Services 07/05/2021 08/04/2022 1 1 Reason for Visit * Reason Comments Physical est care, ER said sh joe has ulcer Ear Problem she doesnt hear very well Encounter Details Date Type Department Care Team (Late st Contact Info) Description 07/05/2021 8:20 AM CDT Office Visit [facility] Medical Group Family Medicine - [place] [address] [facility] [address] [place], [place] [address] Jacquie Fair NP [address] [place] [address] Physical (est care, ER said she has [...] on file Legal Sex Female 9:41 PM ORDER CHECKER Gender Identity Female 04/24/2021 2:22 PM ORDER CHECKER Sexual Orientation Choose not to disclose 2021 2:22 PM ORDER CHECKER COVID-19 Exposure Response Date Recorded In the [...] is a 35-year-old female who presents to [facility] to establish care as a new patient and for a ER follow-up. Patient was seen at [place] [facility] on 06/14 due to complaints of [...] CDT) FERRITIN 48 16 - 154 ng/mL [facility] 06/07/2022 12:3 8 PM CDT 06/07/2022 12:39 PM CDT Narrative [facility] [place] [facility] - 06/08/2022 7:33 AM CDT FASTING:NO FASTING: NO Resulting Agency Comment Performing Organization Information: ?Site ID: [place] ?Name: [facility] ?Address: [address] [place] [id number] ?Director: Nicolle Roach MD Jacquieluis Fair NP LABORATORY Final Res ult Performing Organization Address City/[facility] Co de Phone Number [facility] [place] [facility] [address] [place], [place] [address] * IRON SAT PANEL (IRON,IBC,%SAT) (06/07/2022 12:38 PM CDT) Pathologist [facility] IRON 91 40 - 190 mcg/dL [facility] IRON BINDING CAPACITY 300 250 - 450 mcg/dL (calc) [facility] % IRON SATURATION 30 16 - 45 % (calc) [facility] 06/07/2022 12:3 8 PM CDT 06/07/2022 12:39 PM CDT Narrative [facility] [place] - 06/08/2022 7:33 AM CDT FASTING:NO FASTING: NO Resulting Agency Comment Performing Organization Information: ?Site ID: [place] ?Name: [facility] ?Address: [address] [place], [place] [address] [address] ?Director: Nicolle Roach MD Jacquieluis Fair DRUM ATTENDANT LABORATORY Final Res ult Performing Organization Address City/[facility] de Phone Number [facility] [place] [facility] [address] [place], [place] [address] * (ABNORMAL) FERRITIN (07/05/2021 9:27 AM CDT) FERRITIN 1(L) 16 - 154 ng/mL [facility] 07/05/2021 9:27 AM CDT 07/05/2021 9:30 AM CDT Narrative [facility] [place] [facility] - 07/06/2021 5:29 PM CDT FASTING:NO FASTING: NO Jacquieluis Fair DRUM ATTENDANT LABORATORY Final Res ult Performing Organization Address [facility] de Phone Number [facility] [place] [facility] [address] [place] [address] * (ABNORMAL) IRON SAT PANEL (IRON,IBC,%SAT) (07/05/2021 [...] PM CDT FASTING:NO FASTING: NO Jacquie Fair DRUM ATTENDANT LABORATORY Final Res ult Performing Organization Address [facility] de Phone Number [facility] [place] [facility] [address] [place] [address] * TSH W/REFLEX (07/05/2021 9:27 AM CDT) TSH 0.80 mIU/L [facility] Comment: ?Reference Range ?> or = 20 Years ??0.40-4.50 ? Ranges ?First trimester ?0.26-2.66 ?Second trimester ?? 0.55-2.73 ?Third trimester ?0.43-2.91 07/05/2021 9:27 AM CDT 07/05/2021 9:30 AM CDT Narrative [facility] [place] [facility] - 07/06/2021 5:29 PM CDT FASTING:NO FASTING: NO Jacquie Fair DRUM ATTENDANT LABORATORY Final Res ult Performing Organization Address [facility] de Phone Number [facility] [place] [facility] [address] [place] [address] * THYROID PEROXIDASE ANTIBODY (07/05/2021 9:27 AM CDT) ANTITHY PEROXID AB <1 <9 IU/mL [facility] 07/05/2021 9:27 AM CDT 07/05/2021 9:30 AM CDT Narrative [facility] [place] [facility] - 07/06/2021 5:29 PM CDT FASTING:NO FASTING: NO Jacquie Fair DRUM ATTENDANT LABORATORY Final Res ult Performing Organization Address [facility] de Phone Number [facility] [place] [facility] [address] [place] [address] * LIPID PANEL (07/05/2021 9:27 AM CDT) [...] Dominick SS et al. ROBERTO CARLOS. 2013;310(19): 9900-2305 (http://education.[facility]/faq/PPT176) CHOL/HDL RATIO 2.6 <5.0 (calc) [facility] [...] PM CDT FASTING:NO FASTING: NO Jacquie Fair DRUM ATTENDANT LABORATORY Final Res ult Performing Organization Address [facility] Co de Phone Number [facility] [place] [facility] [address] [place] [address] * LIPASE (07/05/2021 9:27 AM CDT) LIPASE 33 7 - 60 U/L [facility] 07/05/2021 9:27 AM CDT 07/05/2021 9:30 AM CDT Narrative [facility] [place] [facility] - 07/06/2021 5:29 PM CDT FASTING:NO FASTING: NO Jacquie Fair DRUM ATTENDANT LABORATORY Final Res ult [facility] [place] [facility] [address] [place] [address] * (ABNORMAL) CBC W/DIFF AUTOMATED (07/05/2021 9:27 [...] CDT FASTING:NO FASTING: NO us Jacquie Fair DRUM ATTENDANT LABORATORY Final Res ult Performing Organization Address [facility] Co de Phone Number [facility] [place] [facility] [address] [place] [phone] * H. PYLORI UREA BREATH TEST (07/05/2021 9:27 AM CDT) H. PYLORI UREA BREATH TEST NOT DETECTED NOT DETECTED [facility] Comment: Antimicrobials, proton pump inhibitors, and bismuth [...] PM CDT FASTING:NO FASTING: NO Jacquie Fair DRUM ATTENDANT LABORATORY Final Res ult Performing Organization Address [facility] Co de Phone Number [facility] [place] [facility] [address] [place] [phone] documented in this encounter Visit Diagnoses Diagnosis [...] Total Score: 0 02/29/20 21 9:14 AM ORDER CHECKER documented as of this encounter Care Teams Dependency Counselor Relationship Specialty Start Date End Date Jacquie Fair NP [address] [place] [address] PCP - General NURSE PRACTITIONER 06/20/21 documented as of this encounter
--- OUTSIDE RECORDS SUMMARY | 2024-02-27 10:06 | XMS_ITS | Encounter Summary ---
Author Organization [facility] Address [address] [place] [address]. [place] [address] [place] [address] Care Team Providers Care Yarn Examiner Name Role Phone John Pinedo MD Primary Care Provider +1 [phone] Encounter Details Date Type Department Care Team [...] on file Legal Sex Female 9:41 PM TRAINING MGR Gender Identity Female 04/24/2021 2:22 PM TRAINING MGR Sexual Orientation Choose not to disclose 2021 2:22 PM TRAINING MGR COVID-19 Exposure Response Date Recorded In the last month, have you been in contact with someone who was confirmed or suspected to have Coronavirus / COVID-19? No / Unsure 03/09/2021 4:41 PM TRAINING MGR documented as of this encounter Plan of Treatment Not on file documented as of this encounter Visit Diagnoses Not on filedocumented in this encounter Additional Health Concerns Assessment Noted Time PHQ-9 Depression Total Score: 0 02/29/20 9:14 AM TRAINING MGR documented as of this encounter Care Teams Yarn Examiner Relationship Specialty Start Date End Date John Pinedo MD PCP - General INTERNAL MEDICINE 02/28/21 05/28/21 documented as of this encounter
--- OUTSIDE RECORDS SUMMARY | 2024-02-27 10:06 | XMS_ITS | Encounter Summary ---
Author Organization [facility] Address [address] [place] [address]. [place] [address] [place] [address] Care Team Providers Care Monument Mason Name Role Phone John Pinedo MD Primary Care Provider +1 [phone] Encounter Details Date Type Department Care Team (Latest Contact Info) Description 02/28/2021 1:40 PM SORT LINE WORKER - 02/28/2021 11:59 PM SORT LINE WORKER Hospital Encounter [facility] [address] [place], [place] [id number] John Pinedo MD [address] [address] Discharge Disposition: Home or Self [...] on file Legal Sex Female 9:41 PM SORT LINE WORKER Gender Identity Female 04/24/2021 2:22 PM SORT LINE WORKER Sexual Orientation Choose not to disclose 2021 2:22 PM SORT LINE WORKER COVID-19 Exposure Response Date Recorded In the last month, have you been in contact with someone who was confirmed or suspected to have Coronavirus / COVID-19? No / Unsure 02/28/2021 8:52 AM SORT LINE WORKER documented as of this encounter Medications at [...] print letter and mail to patient. Thanks! LINE WORKER documented in this encounter Plan of Treatment Not on file documented as of this encounter Procedures Procedure Name Priority Date/Time Associated Diagnosis Comments CBC W/DIFF AUTOMATED Today 02/28/2021 9:44 AM SORT LINE WORKER History of anemia documented in this encounter Results * (ABNORMAL) CBC W/DIFF AUTOMATED (02/28/2021 9:44 AM SORT LINE WORKER) WBC 4.6 4.4 - 11.0 x10'3/uL 02/28/2021 1:49 PM SORT LINE WORKER [facility] RBC 4.26(L) 4.50 - 5.10 x10'6/uL 02/28/2021 1:49 PM SORT LINE WORKER [facility] HGB 12.1(L) 12.3 - 15.3 G/DL [...] 0.0 - 5.6 % 02/28/2021 1:49 PM SORT LINE WORKER [facility] BASOPHILS 0.9 0.0 - 1.3 % 02/28/2021 1:49 PM SORT LINE WORKER [facility] ABS. NEUTROPHILS 2.47 1.40 - 6.00 x10'3/uL 02/28/2021 1:49 PM SORT LINE WORKER [facility] IMMATURE GRANS % 0.2 0.0 - 0.5 % 02/28/2021 1:49 PM SORT LINE WORKER [facility] ABS. LYMPHOCYTES 1.60 0.80 - 4.70 x10'3/uL 02/28/2021 1:49 PM SORT LINE WORKER [facility] 02/28/2021 9:44 AM SORT LINE WORKER us John Pinedo MD LABORATORY Final Res ult [facility] [address] [place] [address], documented in this encounter Visit Diagnoses Diagnosis History of anemia Personal history of diseases of blood and blood-forming organs documented in this encounter Additional Health Concerns Assessment Noted Time PHQ-9 Depression Total Score: 0 02/29/20 9:14 AM SORT LINE WORKER documented as of this encounter Care Teams Monument Mason Relationship Specialty Start Date End Date John Pinedo MD PCP - General INTERNAL MEDICINE 02/28/21 05/28/21 documented as of this encounter
--- OUTSIDE RECORDS SUMMARY | 2024-02-27 10:06 | XMS_ITS | Encounter Summary ---
Author Organization [facility] Address [address] [place] [address]. [place] [address] [place] [address] Care Team Providers Care Software Business Analyst Name Role Phone John Pinedo MD Primary Care Provider [phone] [phone] Reason for Visit * Reason Comments Neck Pain * Physical Medicine (Routine) - Closed Specialty Diagnoses / Procedures Referred By Contac t Referred To Contact [facility] Physical Therapy Diagnoses Chronic neck and back pain John Pinedo MD Phone: tel: fax: [facility] [address] [place] [address] Phone: tel: fax: Referral ID Status Reason Start Date Expiration Date V isits Requested Visits Authorized [id number] Closed Physical Therapy 02/28/2021 03/01/2022 99 99 Encounter Details Date Type Department Care Team (Latest Contact Info) Description 03/09/2021 4:41 PM BRAKE LINING FINISHER ASBESTOS - 03/09/2021 11:59 PM BRAKE LINING FINISHER ASBESTOS Hospital Encounter [facility] [address] [place] [address] John Pinedo MD [address] [place] [address] [place] [address] [place] [address] Neck Pain Discharge Disposition: Home [...] on file Legal Sex Female 9:41 PM BRAKE LINING FINISHER ASBESTOS Gender Identity Female 04/24/2021 2:22 PM BRAKE LINING FINISHER ASBESTOS Sexual Orientation Choose not to disclose 2021 2:22 PM BRAKE LINING FINISHER ASBESTOS COVID-19 Exposure Response Date Recorded In the last month, have you been in contact with someone who was confirmed or suspected to have Coronavirus / COVID-19? No / Unsure 03/09/2021 4:41 PM BRAKE LINING FINISHER ASBESTOS documented as of this encounter Discharge Instructions * Patient Instructions* Libia Romero, PT - 03/09/2021 5:00 PM BRAKE LINING FINISHER ASBESTOS Access Code: [email or web address] URL: 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 Says there is an actual lump on the back left side of her head/neck. It hasbeen there for maybe 1.5 years. Her last PT thought it was a muscle. Just moved here about a month ago but was getting PT in [place]. Was having manual traction at her last [...] C7 Right: 4+/5 Triceps C7 Left: 4+/5 Face Man strength in pounds Right: Not assessed due [...] PT Eval Moderate Complexity - Minutes - 65851: 45 Education Was Education Provided: Yes Topic: posture, dermatomes, ergonomics, PT POC, HEP Recipient: Patient Method: Demonstration, Verbal, Written, Return Demonstration Response: Asked questions, Verbalized understanding Barriers: None PLAN Plan Treatments/Interventions: Neuromuscular Re-education - 94994, Therapeutic Exercise - 12176, Electrical Stimulation Unattended - 29866, Mechanical Traction - 23689, Manual Therapy - 48797, Hot/Cold Pack - 26984, Ultrasound - 84842 Therapy Frequency: 2 times/week Duration of treatment time: 6 weeks Instruction Provided Home Exercise Program: Instructed in HEP and issued via [employer] handout (text message) TREATMENT PROVIDED TODAY Timed Treatments Therapeutic Exercise Minutes - 67872: 10 Therapeutic Exercise - 69749: Time includes review of HEP. Total Minutes: [...] Name: Shagufta Lamar Patient : 1985 Patient [facility] [address] [facility] [address] Dept: [phone] Dept Cosigned by John Pinedo MD at 03/14/2021 7:11 AM BRAKE LINING FINISHER ASBESTOS E LINING FINISHER ASBESTOS E LINING FINISHER ASBESTOS documented in this encounter Plan of Treatment Not on file documented as of this encounter Visit Diagnoses Diagnosis Chronic neck and back pain- Primary documented in this encounter Additional Health Concerns Assessment Noted Time PHQ-9 Depression Total Score: 0 02/29/20 9:14 AM BRAKE LINING FINISHER ASBESTOS documented as of this encounter Care Teams Software Business Analyst Relationship Specialty Start Date End Date John Pinedo MD PCP - General INTERNAL MEDICINE 02/28/21 05/28/21 documented as of this encounter
--- OUTSIDE RECORDS SUMMARY | 2024-02-27 10:06 | XMS_ITS | Encounter Summary ---
Author Organization [facility] Address [address] [place] [address]. [place] [address] [place] [address] Care Team Providers Care Charge Machine Operator Name Role Phone Jacquie Fair NP Primary Care Provider +1 [phone] Encounter Details Date Type Department Care Team (Late st Contact Info) Description 08/02/2021 Orders Only [facility] [address] [place] [address] Josh Akhtar, DO [address] [facility] [address] [place] [phone] Social History Tobacco Use Types Packs/Day [...] file Legal Sex Female 9:41 PM JUNIOR UNDERWRITER Gender Identity Female 04/24/2021 2:22 PM JUNIOR UNDERWRITER Sexual Orientation Choose not to disclose 2021 2:22 PM JUNIOR UNDERWRITER COVID-19 Exposure Response Date Recorded In the [...] - 170 MCG/DL 08/03/2021 9:37 AM CDT [facility] IRON BINDING CAPACITY 439 250 - 450 MCG/DL 08/03/2021 9:37 AM CDT [facility] IRON SATURATION 10(L) 20 - 55 % 9:37 AM CDT [facility] 08/02/2021 3:30 PM CDT us Josh Akhtar DO LABORATORY Final Result Performing Organization Address [facility]/ZIP Co de Phone Number [facility] [address] [place] [address], [place] [phone] * (ABNORMAL) FERRITIN (08/02/2021 3:30 PM CDT) FERRITIN 7.0(L) 8.0 - 388.0 NG/ML 08/03/2021 9:37 AM CDT [facility] 08/02/2021 3:30 PM CDT us Josh Akhtar DO LABORATORY Final Result [facility] [address] [place] [address], [place] [phone] * VITAMIN B12 / FOLATE (08/02/2021 3:30 PM CDT) VITAMIN B12 S/P/B 379 193 - 986 PG/ML 08/03/2021 9:37 AM CDT [facility] FOLATE >20.0 8.6 - 58.9 NG/ML 08/03/2021 9:37 AM CDT [facility] 08/02/2021 3:30 PM CDT us Josh Akhtar DO LABORATORY Final Result [facility] [address] [place] [address], [place] [phone] * (ABNORMAL) COMPREHENSIVE METABOLIC PANEL (08/02/2021 3:30 PM CDT) GLUCOSE 79 70 - 99 MG/DL 08/02/2021 6:20 PM CDT [facility] BUN 13 7 - 18 MG/DL 08/02/2021 6:20 PM CDT [facility] CREATININE S/P/B 0.87 0.55 - 1.02 MG/DL 08/02/2021 6:20 PM CDT [facility] SODIUM S/P/B 139 136 - 145 MMOL/L 08/02/2021 6:20 PM CDT [facility] POTASSIUM S/P/B 3.8 3.5 - 5.1 MMOL/L 08/02/2021 6:20 PM T [facility] CHLORIDE S/P/B 104 100 - 108 MMOL/L 08/02/2021 6:20 PM T [facility] CO2 26.6 21 - 32 MMOL/L 08/02/2021 6:20 PM CDT [facility] CALCIUM S/P/B 8.6 8.5 - 10.1 MG/DL 08/02/2021 6:20 PM T [facility] BILIRUBIN TOTAL S/P/B 0.3 0.2 - 1.2 MG/DL 08/02/2021 6:20 PM CDT [facility] Comment: THIS ASSAY IS NOT RECOMMENDED FOR PATIENTS UNDERGOING TREATMENT WITH ELTROMBOPAG DUE TO THE POTENTIAL FOR FALSELY ELEVATED RESULTS. TOTAL PROTEIN S/P/B 7.5 6.4 - 8.2 G/DL 08/02/2021 6:20 PM CDT [facility] ALBUMIN S/P/B 4.3 3.4 - 5.0 G/DL 08/02/2021 6:20 PM CDT [facility] AST 16 15 - 37 U/L 08/02/2021 6:20 PM T [facility] ALT 19 14 - 55 U/L 08/02/2021 6:20 PM T [facility] ALKALINE PHOSPHATASE S/P/B 45(L) 50 - 136 U/L 08/02/2021 6:20 PM T [facility] ANION GAP 8.4 5 - 15 MMOL/L 08/02/2021 6:20 PM T [facility] BUN CREATININE RATIO 14.9 6 - 26 08/02/2021 6:20 PM T [facility] A/G RATIO 1.3 1.0 - 2.0 RATIO 08/02/2021 6:20 PM [facility] GFR ESTIMATE 89(L) >90 ML/MIN/1.7 3 M2 08/02/2021 6:20 PM T [facility] Comment: NOTE: eGFR is not calculated for patients <18 years of age. This is an estimated GFR calculation using the new CKD EPI creatinine equation without race and so does not require a correction factor for race. This estimated GFR should not be used for calculating drug doses. 08/02/2021 3:30 PM CDT us Josh Akhtar DO LABORATORY Final Result [facility] [address] [place] [address], [place] [phone] * (ABNORMAL) CBC W/DIFF AUTOMATED (08/02/2021 3:30 PM CDT) [facility] Signature WBC 5.2 4.8 - 10.8 x10'3/uL 08/02/2021 5:46 PM CDT [facility] RBC 4.21 4.10 - 5.10 x10'6/uL 08/02/2021 5:46 PM CDT [facility] HGB 9.9(L) 12.0 - 16.0 G/DL 08/02/2021 5:46 PM CDT [facility] HCT 33.2(L) 36 - 46 % 08/02/2021 5:46 PM CDT [facility] MCV 78.9(L) 80 - 100 FL 08/02/2021 5:46 PM CDT [facility] MCH 23.5(L) 26.0 - 34.0 PG 08/02/2021 5:46 PM CDT [facility] MCHC 29.8(L) 31.0 - 37.0 G/DL 08/02/2021 5:46 PM CDT [facility] RDW 15.1(H) 11.5 - 14.5 % 08/02/2021 5:46 PM CDT [facility] PLT 376(H) 150 - 350 x10'3/uL 08/02/2021 5:46 PM CDT [facility] MPV 10.4 7.0 - 10.4 FL 08/02/2021 5:46 PM CDT [facility] CBC COMMENT AUTOMATED RBC MORPHOLOGY AND PLATELET EVALUATION NORMAL 08/02/2021 5:46 PM CDT [facility] NEUTROPHILS % 61.3 50 - 70 % 08/02/2021 5:46 PM CDT [facility] LYMPHOCYTES % 30.2 18 - 42 % 08/02/2021 5:46 PM CDT [facility] MONOCYTES % 5.2 2.0 - 11.0 % 08/02/2021 5:46 PM CDT [facility] EOSINOPHILS 2.5 1.0 - 3.0 % 08/02/2021 5:46 PM CDT [facility] BASOPHILS 0.6 0.0 - 1.0 % 08/02/2021 5:46 PM CDT [facility] IMMATURE GRANS % 0.2 0.00 - 0.43 % 08/02/2021 5:46 PM CDT [facility] ABS. NEUTROPHILS TOTAL 3.22 1.69 - 7.81 x10'3/uL 08/02/2021 5:46 PM CDT [facility] ABS. LYMPHOCYTES 1.58 0.21 - 5.42 x10'3/uL 08/02/2021 5:46 PM CDT [facility] ABS. MONOCYTES 0.27 0.04 - 1.37 x10'3/uL 08/02/2021 5:46 PM CDT [facility] ABS. EOSINOPHILS 0.13 0.00 - 0.68 x10'3/uL 08/02/2021 5:46 PM CDT [facility] ABS. BASOPHILS 0.03 0.00 - 0.08 x10'3/uL 08/02/2021 5:46 PM CDT [facility] ABS. IMMATURE GRANULOCYTES 0.01 0.00 - 0.06 x10'3/uL 08/02/2021 5:46 PM CDT [facility] 08/02/2021 3:30 PM CDT us Josh Akhtar DO LABORATORY Final Result [facility] [address] [place] [address], documented in this encounter Visit Diagnoses Diagnosis Iron deficiency anemia, unspecified iron deficiency anemia type- Primary documented in this encounter Additional Health Concerns Assessment Noted Time PHQ-9 Depression Total Score: 0 02/29/20 21 9:14 AM JUNIOR UNDERWRITER documented as of this encounter Care Teams Charge Machine Operator Relationship Specialty Start Date End Date Jacquie Fair NP [address] [place] [address] PCP - General NURSE PRACTITIONER 06/20/21 documented as of this encounter
--- OUTSIDE RECORDS SUMMARY | 2024-02-27 10:06 | XMS_ITS | Encounter Summary ---
Author Organization [facility] Address [address] [place] [address]. [place] [address] [place] [address] Care Team Providers Care Tile Professional Name Role Phone John Pinedo MD Primary Care Provider [phone] [phone] Encounter Details Date Type Department Care Team [...] on file Legal Sex Female 9:41 PM MULTIPLE PUNCH PRESS OPERATOR Gender Identity Female 04/24/2021 2:22 PM MULTIPLE PUNCH PRESS OPERATOR Sexual Orientation Choose not to disclose 2021 2:22 PM MULTIPLE PUNCH PRESS OPERATOR COVID-19 Exposure Response Date Recorded In the last month, have you been in contact with someone who was confirmed or suspected to have Coronavirus / COVID-19? No / Unsure 02/28/2021 8:52 AM MULTIPLE PUNCH PRESS OPERATOR documented as of this encounter Plan of Treatment Not on file documented as of this encounter Visit Diagnoses Not on filedocumented in this encounter Additional Health Concerns Assessment Noted Time PHQ-9 Depression Total Score: 0 02/29/20 9:14 AM MULTIPLE PUNCH PRESS OPERATOR documented as of this encounter Care Teams Tile Professional Relationship Specialty Start Date End Date John Pinedo MD PCP - General INTERNAL MEDICINE 02/28/21 05/28/21 documented as of this encounter
--- OUTSIDE RECORDS SUMMARY | 2024-02-27 10:06 | XMS_ITS | Encounter Summary ---
Author Organization [facility] Address [address] [place] [address]. [place] [address] [place] [address] Care Team Providers Care Biological Engineer Name Role Phone Jacquie Fair NP Primary Care Provider +1 [phone] Reason for Visit * Reason Onset Date Comments Refill Request 07/25/2021 Encounter Details Date Type Department Care Team (Late st Contact Info) Description 07/25/2021 Telephone [facility] Family Medicine - [place] [address] [facility] [address] [place] [phone] Jacquie Fair, TRICIA [address] [place], [place] [address] Refill Request Social History Tobacco Use Types [...] on file Legal Sex Female 9:41 PM ANNEALING TORCH OPERATOR Gender Identity Female 04/24/2021 2:22 PM ANNEALING TORCH OPERATOR Sexual Orientation Choose not to disclose 2021 2:22 PM ANNEALING TORCH OPERATOR COVID-19 Exposure Response Date Recorded In [...] Total Score: 0 02/29/20 21 9:14 AM ANNEALING TORCH OPERATOR documented as of this encounter Care Teams Biological Engineer Relationship Specialty Start Date End Date Jacquie Fair NP [address] [place] [address] PCP - General NURSE PRACTITIONER 06/20/21 documented as of this encounter
--- OUTSIDE RECORDS SUMMARY | 2024-02-27 10:06 | XMS_ITS | Encounter Summary ---
Author Organization [facility] Address [address] [place] [address]. [place] [address] [place] [address] Care Team Providers Care Material Mixer Name Role Phone John Pinedo MD Primary Care Provider [phone] -[phone] Reason for Visit * Reason Comments New Patient Rt hand * Surgical (Routine) - Closed Specialty Diagnoses / Procedures Referred By Nir small Referred To Contact HAND SURGERY / ORTHOPAEDICS Diagnoses Right hand pain De Quervain's tenosynovitis John Pinedo MD Phone: tel: fax: Addison Wallace MD Phone: tel: fax: Referral ID Status Reason Start Date Expiration Date Visits Re quested Visits Authorized [id number] Closed 02/28/2021 03/30/2022 99 99 Encounter Details Date Type Department Care Team (Late st Contact Info) Description 05/23/2021 8:20 AM CDT Office Visit [facility] Orthopedic & Sports Medicine - [place] [address] [place], [place] [id number] [phone] Addison Wallace MD [address] [place], [place] [address] New Patient (Rt hand) Social History Tobacco [...] on file Legal Sex Female 9:41 PM PLATER SUPERVISOR Gender Identity Female 04/24/2021 2:22 PM PLATER SUPERVISOR Sexual Orientation Choose not to disclose 2021 2:22 PM PLATER SUPERVISOR COVID-19 Exposure Response Date Recorded In the [...] doing desk work, doing hair/make-up, driving, prolonged hold/research center partner, prolong elbow flexion, resting arm on desck/chair. Pt denies complains of decreased research center partner strength, decreased dexterity, and dropping things. Previous [...] Depression Total Score: 0 02/29/20 9:14 AM PLATER SUPERVISOR documented as of this encounter Care Teams Material Mixer Relationship Specialty Start Date End Date John Pinedo MD PCP - General INTERNAL MEDICINE 02/28/21 05/28/21 documented as of this encounter
--- OUTSIDE RECORDS SUMMARY | 2024-02-27 10:06 | XMS_ITS | Encounter Summary ---
Author Organization [facility] Address [address] [place] [address]. [place] [address] [place] [address] Care Team Providers Care Shrimp Trawler Name Role Phone John Pinedo MD Primary Care Provider [phone] [phone] Jacquie Fair NP Primary Care Provider +1 -[phone] Encounter Details Date Type Department Care Team (Latest Contact Info) Description 05/19/2020 Scan HEALTH INFO [facility]CS Scanned, Doc Med Group Social History Tobacco Use Types Packs/Day Years Used Date Smoking Tobacco: Never Assessed PHQ-2 Answer Date Recorded Patient Health Questionnaire-2 Score 2 04/13/2022 Comments Unknown Sex and Gender Information Value Date Recorded Sex Assigned at Not on file Legal Sex Female 9:41 PM FINISH REMOVER Gender Identity Female 04/24/2021 2:22 PM FINISH REMOVER Sexual Orientation Choose not to disclose 2021 2:22 PM FINISH REMOVER COVID-19 Exposure Response Date Recorded In the [...] documented as of this encounter Care Teams Shrimp Trawler Relationship Specialty Start Date End Date John Pinedo MD PCP - General INTERNAL MEDICINE 02/28/21 05/28/21 Jacquie Fair NP [address] [place] [address] PCP - General NURSE PRACTITIONER 06/20/21 documented as of this encounter
--- OUTSIDE RECORDS SUMMARY | 2024-02-27 10:06 | XMS_ITS | Encounter Summary ---
Author Organization [facility] Address [address] [place] [address]. [place] [address] [place] [address] Care Team Providers Care Internal Control Manager Name Role Phone Jacquie Fair NP Primary Care Provider +1 [phone] Encounter Details Date Type Department Care Team [...] on file Legal Sex Female 9:41 PM MANUFACTURING TECHNOLOGY ANALYST Gender Identity Female 04/24/2021 2:22 PM MANUFACTURING TECHNOLOGY ANALYST Sexual Orientation Choose not to disclose 2021 2:22 PM MANUFACTURING TECHNOLOGY ANALYST COVID-19 Exposure Response Date Recorded In [...] Depression Total Score: 0 02/29/20 9:14 AM MANUFACTURING TECHNOLOGY ANALYST documented as of this encounter Care Teams Internal Control Manager Relationship Specialty Start Date End Date Jacquie Fair NP [address] [place] [address] PCP - General NURSE PRACTITIONER 06/20/21 documented as of this encounter
--- OUTSIDE RECORDS SUMMARY | 2024-02-27 10:06 | XMS_ITS | Encounter Summary ---
Author Organization [facility] Address [address] [place] [address]. [place], [place] [address] [place] [address] Care Team Providers Care Aeronautics Teacher Name Role Phone John Pinedo MD Primary Care Provider [phone] [phone] Reason for Referral * Physical Medicine (Routine) - Closed Specialty Diagnoses / Procedures Referred By Contac t Referred To Contact [facility] Physical Therapy Diagnoses Chronic neck and back pain John Pinedo MD Phone: tel: fax: [facility] [id number] [place] [address] Phone: tel: fax: Referral ID Status Reason Start Date Expiration Date V isits Requested Visits Authorized [id number] Closed Physical Therapy 02/28/2021 03/01/2022 99 99 STICKS REPAIRER * Surgical (Routine) - Closed Specialty Diagnoses / Procedures Referred By Contac t Referred To Contact HAND SURGERY / ORTHOPAEDICS Diagnoses Right hand pain De Quervain's tenosynovitis John Pinedo MD Phone: tel: fax: Addison Wallace MD Phone: tel: fax: Referral ID Status Reason Start Date Expiration Date Visits Re quested Visits Authorized [id number] Closed 02/28/2021 03/30/2022 99 99 STICKS REPAIRER Reason for Visit * Reason Comments New Patient establish care Encounter Details Date Type Department Care Team (Late st Contact Info) Description 02/28/2021 8:40 AM SHOE STICKS REPAIRER Office Visit [facility] Family & Internal Medicine [facility] [address] [place] [address] John Pinedo MD [address] [place] [address] New Patient (establish care) Social [...] on file Legal Sex Female 9:41 PM SHOE STICKS REPAIRER Gender Identity Female 04/24/2021 2:22 PM SHOE STICKS REPAIRER Sexual Orientation Choose not to disclose 2021 2:22 PM SHOE STICKS REPAIRER COVID-19 Exposure Response Date Recorded In the last month, have you been in contact with someone who was confirmed or suspected to have Coronavirus / COVID-19? No / Unsure 03/09/2021 4:41 PM SHOE STICKS REPAIRER documented as of this encounter Last Filed Vital Signs Vital Sign Reading Time Taken Comments Blood Pressure 98/74 02/28/2021 8:59 AM SHOE STICKS REPAIRER Pulse 92 02/28/2021 8:59 AM SHOE STICKS REPAIRER Temperature 37.3 ??C (99.1 ??F) 02/28/2021 8:59 AM CS T Respiratory Rate 16 02/28/2021 8:59 AM SHOE STICKS REPAIRER Oxygen Saturation 99% 02/28/2021 8:59 AM SHOE STICKS REPAIRER Inhaled Oxygen Concentration - - Weight 45.8 kg (101 lb) 02/28/2021 8:59 AM SHOE STICKS REPAIRER Height 157.5 cm (5' 2 ) 02/28/2021 8:59 AM SHOE STICKS REPAIRER Body Mass Index 18.47 02/28/2021 8:59 AM SHOE STICKS REPAIRER documented in this encounter Patient Instructions * Patient Instructions* John Pinedo MD - 02/28/2021 8:40 AM SHOE STICKS REPAIRER Shagufta, Thank you for your visit We will call with any concerning results. If you have a [employer] account, your results will appear there. If [...] As you exit, please stop at the desk monitor and schedule your follow-up appointment. Return in about 3 months (around 05/29/2021) for routine follow-up, and as needed. Call with any concerns. Healthy adult recommendations: Focus on a healthy diet, with exercise as tolerated, targeting 30-60minutes of exercise daily, at least 5 days per week. Have a good day! Merry Phylicia!! STICKS REPAIRER STICKS REPAIRER documented in this encounter Progress Notes * John Pinedo MD - 02/28/2021 8:40 AM CST REASON FOR VISIT/CHIEF COMPLAINT New Patient (establish care) Shagufta Lamar is a pleasant 35-year-old female, here to establish with our practice. She was last seenby Dr. Viera in [place], with her last visit occurring about 6 months ago. Last labwork was in ER. HISTORY OF PRESENT ILLNESS: Chief complaint and nursing note reviewed above. Shagufta presents to establish, with the following acute concerns: ?? Patient was in ER in [place] in December for head injury after fainting [...] NEGATIVE U KETONES NEGATIVE NEGATIVE MG/DL Specific Sabael (U) 1.025 1.001 - 1.035 BLOOD NEGATIVE [...] follow-up, and as needed. John Pinedo MD [facility] Internal Medicine & Pediatric[facility] 02/28/2021 Portions of this note were dictated using [employer] speech recognition software. Occasional wrong wordor sound-alike substitutions may have occurred due to the inherent limitations of voice recognition software. Please read the chart carefully and recognize, using context, where the substitutions may have occurred. STICKS REPAIRER documented in this encounter Plan of Treatment [...] ARM DRAW Routine 02/28/2021 12: 09 PM SHOE STICKS REPAIRER Encounter for well adult exam without abnormal findings URINALYSIS AUTO DIP Routine 02/28/2021 9 :46 AM SHOE STICKS REPAIRER Dysuria documented in this encounter Results * URINALYSIS AUTO DIP (02/28/2021 9:46 AM SHOE STICKS REPAIRER) COLOR (U) DARK YELLOW [id number], [place] [facility] CLEAR MG-[address], [facility] GLUCOSE (U) NEGATIVE NEGATIVE MG/DL MG-[id number], [facility] BILIRUBIN (U) NEGATIVE NEGATIVE MG-[address], [facility] KETONES MG/DL (U) NEGATIVE NEGATIVE MG/DL MG-[id number], [facility] SPECIFIC GRAVITY (U) 1.025 1.001 - 1.035 MG-[address], [facility] BLOOD (U) NEGATIVE NEGATIVE MG-[address], [place] U PH 6.5 5.0 - 9.0 MG-[address], [facility] PROTEIN (U) NEGATIVE NEGATIVE mg/dL MG-[address], [place] UROBILINOGEN 0.2 0.2 - 1.0 EU/dL = mg/dL MG-[address], [place] NITRITES NEGATIVE NEGATIVE MG/DL MG-[address], [place] LEUKOCYTES (U) NEGATIVE NEGATIVE MG-[address], [place] URINE SPECIMEN OBTAINED BY CLEAN CATCH PROCEDURE / Unknown 02/28/2021 9:46 AM SHOE STICKS REPAIRER us John Pinedo MD URINE ORDERABLES Final Re sult -[id number], [place] [address] [place] [address], [place] [phone] * (ABNORMAL) CBC W/DIFF AUTOMATED (02/28/2021 9:44 AM SHOE STICKS REPAIRER) WBC 4.6 4.4 - 11.0 x10'3/uL 02/28/2021 1:49 PM SHOE STICKS REPAIRER [facility] RBC 4.26(L) 4.50 - 5.10 x10'6/uL 02/28/2021 1:49 PM SHOE STICKS REPAIRER [facility] HGB 12.1(L) 12.3 - 15.3 G/DL 02/28/2021 1:49 PM SHOE STICKS REPAIRER [facility] HCT 38.4 35.9 - 44.6 % 02/28/2021 1:49 PM SHOE STICKS REPAIRER [facility] MCV 90.1 80.0 - 96.0 FL 02/28/2021 1:49 PM SHOE STICKS REPAIRER [facility] MCH 28.4 25.3 - 30.9 PG 02/28/2021 1:49 PM SHOE STICKS REPAIRER [facility] MCHC 31.5 31.0 - 34.1 G/DL 02/28/2021 1:49 PM [facility] RDW 12.8 12.4 - 15.1 % 02/28/2021 1:49 PM [facility] PLT 290 151 - 353 x10'3/uL 02/28/2021 1:49 PM [facility] MPV 10.3 9.6 - 12.0 FL 02/28/2021 1:49 PM [facility] RBC MORPHOLOGY NORMAL 02/28/2021 1:49 PM [facility] PLT MORPH. NORMAL 02/28/2021 1:49 PM [facility] WBC MORPHOLOGY NORMAL 02/28/2021 1:49 PM [facility] LYMPHOCYTES % 35.0 15.8 - 45.0 % 02/28/2021 1:49 PM [facility] NEUTROPHILS % 54.1 42.1 - 71.9 % 02/28/2021 1:49 PM [facility] MONOCYTES % 6.3 5.7 - 12.5 % 02/28/2021 1:49 PM [facility] EOSINOPHILS 3.5 0.0 - 5.6 % 02/28/2021 1:49 PM [facility] BASOPHILS 0.9 0.0 - 1.3 % 02/28/2021 1:49 PM [facility] ABS. NEUTROPHILS 2.47 1.40 - 6.00 x10'3/uL 02/28/2021 1:49 PM [facility] IMMATURE GRANS % 0.2 0.0 - 0.5 % 02/28/2021 1:49 PM [facility] ABS. LYMPHOCYTES 1.60 0.80 - 4.70 x10'3/uL 02/28/2021 1:49 PM SHOE STICKS REPAIRER [facility] 02/28/2021 9:44 AM SHOE STICKS REPAIRER us John Pinedo MD LABORATORY Final Res ult [facility] [address] [place] [address], [place] [phone] documented in this encounter Visit Diagnoses Diagnosis [...] Depression Total Score: 0 02/29/20 9:14 AM SHOE STICKS REPAIRER documented as of this encounter Care Teams Aeronautics Teacher Relationship Specialty Start Date End Date John Pinedo MD PCP - General INTERNAL MEDICINE 02/28/21 05/28/21 documented as of this encounter
--- OUTSIDE RECORDS SUMMARY | 2024-02-27 10:06 | XMS_ITS | Encounter Summary ---
Author Organization [facility] Address [address] [place] [address]. [place] [address] [place] [address] Care Team Providers Care Construction Equipment Technician Name Role Phone John Pinedo MD Primary Care Provider [phone] [phone] Jacquie Fair NP Primary Care Provider [phone] [phone] Reason for Visit * Reason Comments Cytology reports (SCAN) Encounter Details Date Type Department Care Team ([facility] Contact Info) Description 12/01/2019 Scan HEALTH INFO [...] on file Legal Sex Female 9:41 PM ELECTRO OPTICAL ENGINEER Gender Identity Female 04/24/2021 2:22 PM ELECTRO OPTICAL ENGINEER Sexual Orientation Choose not to disclose 2021 2:22 PM ELECTRO OPTICAL ENGINEER COVID-19 Exposure Response Date Recorded In the [...] 12/01/2019 us Documents Scanned SCANNING Final Result [facility] documented in this encounter Visit Diagnoses Not on filedocumented in this encounter Care Teams Construction Equipment Technician Relationship Specialty Start Date End Date John Pinedo MD PCP - General INTERNAL MEDICINE 02/28/21 05/28/21 Jacquie Fair NP [address] [place] [address] PCP - General NURSE PRACTITIONER 06/20/21 documented as of this encounter
--- OUTSIDE RECORDS SUMMARY | 2024-02-27 10:06 | XMS_ITS | Encounter Summary ---
Author Organization [facility] Address [address] [place] [address]. [place] [address] [place] [address] Care Team Providers Care Nurse Practitioner Adult Name Role Phone Jacquie Fair NP Primary Care Provider [phone] [phone] Encounter Details Date Type Department Care Team (Latest Contact Info) Description 08/02/2021 5:20 PM CDT - 08/02/2021 11:59 PM T Hospital Encounter [facility] [address] [place] [address] Josh Akhtar, DO [address] [facility] [address] [place] [phone] Discharge Disposition: Home or Self Care [...] on file Legal Sex Female 9:41 PM CONVICT GUARD Gender Identity Female 04/24/2021 2:22 PM CONVICT GUARD Sexual Orientation Choose not to disclose 2021 2:22 PM CONVICT GUARD COVID-19 Exposure Response Date Recorded In the [...] - 10.8 x10'3/uL 08/02/2021 5:46 PM CDT [facility] RBC 4.21 4.10 - 5.10 x10'6/uL 08/02/2021 5:46 PM CDT [facility] HGB 9.9(L) 12.0 - 16.0 G/DL 08/02/2021 5:46 PM CDT [facility] HCT 33.2(L) 36 - 46 % 08/02/2021 5:46 PM CDT [facility] MCV 78.9(L) 80 - 100 FL 08/02/2021 5:46 PM CDT [facility] MCH 23.5(L) 26.0 - 34.0 PG 08/02/2021 5:46 PM CDT [facility] MCHC 29.8(L) 31.0 - 37.0 G/DL 08/02/2021 5:46 PM CDT [facility] RDW 15.1(H) 11.5 - 14.5 % 08/02/2021 5:46 PM T [facility] PLT 376(H) 150 - 350 x10'3/uL 08/02/2021 5:46 PM T [facility] MPV 10.4 7.0 - 10.4 FL 08/02/2021 5:46 PM T [facility] CBC COMMENT AUTOMATED RBC MORPHOLOGY AND PLATELET EVALUATION NORMAL 08/02/2021 5:46 PM T [facility] NEUTROPHILS % 61.3 50 - 70 % 08/02/2021 5:46 PM T [facility] LYMPHOCYTES % 30.2 18 - 42 % 08/02/2021 5:46 PM CDT [facility] MONOCYTES % 5.2 2.0 - 11.0 % 08/02/2021 5:46 PM CDT [facility] EOSINOPHILS 2.5 1.0 - 3.0 % 08/02/2021 5:46 PM CDT [facility] BASOPHILS 0.6 0.0 - 1.0 % 08/02/2021 5:46 PM CDT [facility] IMMATURE GRANS % 0.2 0.00 - 0.43 % 08/02/2021 5:46 PM CDT [facility] ABS. NEUTROPHILS TOTAL 3.22 1.69 - 7.81 x10'3/uL 08/02/2021 5:46 PM CDT [facility] ABS. LYMPHOCYTES 1.58 0.21 - 5.42 x10'3/uL 08/02/2021 5:46 PM CDT [facility] ABS. MONOCYTES 0.27 0.04 - 1.37 x10'3/uL 08/02/2021 5:46 PM CDT [facility] ABS. EOSINOPHILS 0.13 0.00 - 0.68 x10'3/uL 08/02/2021 5:46 PM CDT [facility] ABS. BASOPHILS 0.03 0.00 - 0.08 x10'3/uL 08/02/2021 5:46 PM CDT [facility] ABS. IMMATURE GRANULOCYTES 0.01 0.00 - 0.06 x10'3/uL 08/02/2021 5:46 PM CDT [facility] 08/02/2021 3:30 PM CDT us Josh Akhtar DO LABORATORY Final Result [facility] [address] [place] [address], [place] [phone] * (ABNORMAL) COMPREHENSIVE METABOLIC PANEL (08/02/2021 3:30 PM CDT) [facility] GLUCOSE 79 70 - 99 MG/DL 08/02/2021 6:20 PM CDT [facility] BUN 13 7 - 18 MG/DL 08/02/2021 6:20 PM CDT [facility] CREATININE S/P/B 0.87 0.55 - 1.02 MG/DL 08/02/2021 6:20 PM CDT [facility] SODIUM S/P/B 139 136 - 145 MMOL/L 08/02/2021 6:20 PM T [facility] POTASSIUM S/P/B 3.8 3.5 - 5.1 MMOL/L 08/02/2021 6:20 PM CDT [facility] CHLORIDE S/P/B 104 100 - 108 MMOL/L 08/02/2021 6:20 PM T [facility] CO2 26.6 21 - 32 MMOL/L 08/02/2021 6:20 PM CDT [facility] CALCIUM S/P/B 8.6 8.5 - 10.1 MG/DL 08/02/2021 6:20 PM T [facility] BILIRUBIN TOTAL S/P/B 0.3 0.2 - 1.2 MG/DL 08/02/2021 6:20 PM T [facility] Comment: THIS ASSAY IS NOT RECOMMENDED FOR PATIENTS UNDERGOING TREATMENT WITH ELTROMBOPAG DUE TO THE POTENTIAL FOR FALSELY ELEVATED RESULTS. TOTAL PROTEIN S/P/B 7.5 6.4 - 8.2 G/DL 08/02/2021 6:20 PM T [facility] ALBUMIN S/P/B 4.3 3.4 - 5.0 G/DL 08/02/2021 6:20 PM T [facility] AST 16 15 - 37 U/L 08/02/2021 6:20 PM T [facility] ALT 19 14 - 55 U/L 08/02/2021 6:20 PM T [facility] ALKALINE PHOSPHATASE S/P/B 45(L) 50 - 136 U/L 08/02/2021 6:20 PM CDT [facility] ANION GAP 8.4 5 - 15 MMOL/L 08/02/2021 6:20 PM CDT [facility] BUN CREATININE RATIO 14.9 6 - 26 08/02/2021 6:20 PM CDT [facility] A/G RATIO 1.3 1.0 - 2.0 RATIO 08/02/2021 6:20 PM CDT [facility] GFR ESTIMATE 89(L) >90 ML/MIN/1.7 3 M2 08/02/2021 6:20 PM CDT [facility] Comment: NOTE: eGFR is not calculated for patients <18 years of age. This is an estimated GFR calculation using the new CKD EPI creatinine equation without race and so does not require a correction factor for race. This estimated GFR should not be used for calculating drug doses. 08/02/2021 3:30 PM CDT us Josh Akhtar DO LABORATORY Final Result [facility] [address] [place] [address], [place] [phone] * VITAMIN B12 / FOLATE (08/02/2021 3:30 PM CDT) VITAMIN B12 S/P/B 379 193 - 986 PG/ML 08/03/2021 9:37 AM CDT [facility] FOLATE >20.0 8.6 - 58.9 NG/ML 08/03/2021 9:37 AM CDT [facility] 08/02/2021 3:30 PM CDT us Josh Akhtar DO LABORATORY Final Result [facility] [address] [place] [address], [place] [phone] * (ABNORMAL) FERRITIN (08/02/2021 3:30 PM CDT) FERRITIN 7.0(L) 8.0 - 388.0 NG/ML 08/03/2021 9:37 AM CDT [facility] 08/02/2021 3:30 PM CDT Josh Akhtar DO LABORATORY Final Result Performing Organization Address [facility] de Phone Number [facility] [address] [place] [address], [place] [phone] * (ABNORMAL) IRON SAT PANEL (IRON,IBC,%SAT) (08/02/2021 3:30 PM CDT) IRON 42(L) 50 - 170 MCG/DL 08/03/2021 9:37 AM CDT [facility] IRON BINDING CAPACITY 439 250 - 450 MCG/DL 08/03/2021 9:37 AM CDT [facility] IRON SATURATION 10(L) 20 - 55 % 9:37 AM CDT [facility] 08/02/2021 3:30 PM CDT Josh Akhtar DO LABORATORY Final Result Performing Organization Address [facility] Co de Phone Number [facility] [address] [place] [address], [place] [phone] documented in this encounter Visit Diagnoses Diagnosis Iron deficiency anemia, unspecified iron deficiency anemia type documented in this encounter Additional Health Concerns Assessment Noted Time PHQ-9 Depression Total Score: 0 02/29/20 21 9:14 AM CONVICT GUARD documented as of this encounter Care Teams Nurse Practitioner Adult Relationship Specialty Start Date End Date Jacquie Fair NP [address] [place] [address] PCP - General NURSE PRACTITIONER 06/20/21 documented as of this encounter
--- OUTSIDE RECORDS SUMMARY | 2024-02-27 10:06 | XMS_ITS | Encounter Summary ---
Author Organization [facility] Address [address] [place] [address]. [place] [address] [place] [address] Care Team Providers Care Clinical Informatics Strategist Name Role Phone Nav Carrillo MD Primary Care Provider [phone] [phone] Reason for Visit * Reason Onset Date Comments Medication Request 03/21/2021 Encounter Details Date Type Department Care Team (Late st Contact Info) Description 03/21/2021 Telephone [facility] Family & Internal Medicine [facility] [address] [place] [address] Nav Carrillo MD [address] [address] Medication Request Social History Tobacco [...] file Legal Sex Female 9:41 PM HEAD SUGAR REPROCESS OPERATOR Gender Identity Female 04/24/2021 2:22 PM HEAD SUGAR REPROCESS OPERATOR Sexual Orientation Choose not to disclose 2021 2:22 PM HEAD SUGAR REPROCESS OPERATOR COVID-19 Exposure Response Date Recorded In the last month, have you been in contact with someone who was confirmed or suspected to have Coronavirus / COVID-19? No / Unsure 03/09/2021 4:41 PM HEAD SUGAR REPROCESS OPERATOR documented as of this encounter Progress Notes * Latisha Hancock RN - 03/21/2021 1:35 PM CST Rx sent for patient. SUGAR REPROCESS OPERATOR * Connie Hui - 03/21/2021 12:01 PM CST .. Medication and strength: Duloxetine 60 mg Pharmacy: [facility] Call back #: [phone] Last office visit at this office: Last visit with NAV CARRILLO in FAMILY PRACTICE was on: 02/28/2021 in [facility] Future appointment scheduled: Future Appointments Date Time Provider Department Center 03/21/2021 3:30 PM Zoya Tuttle, ALUMNI COORDINATOR [facility] 03/24/2021 3:30 PM Libia Romero, PT [facility] 05/23/2021 8:20 AM Addison Wallace MD [facility] 05/30/2021 3:00 PM Nav [facility]illo [facility] Emmanuel SUGAR REPROCESS OPERATOR documented in this encounter Plan of Treatment Not on file documented as of this encounter Visit Diagnoses Diagnosis Seasonal depression (CMS/[facility])- Primary Other specified episodic mood disorder documented in this encounter Additional Health Concerns Assessment Noted Time PHQ-9 Depression Total Score: 0 02/29/20 9:14 AM HEAD SUGAR REPROCESS OPERATOR documented as of this encounter Care Teams Clinical Informatics Strategist Relationship Specialty Start Date End Date Nav Carrillo MD PCP - General INTERNAL MEDICINE 02/28/21 05/28/21 documented as of this encounter
--- OUTSIDE RECORDS SUMMARY | 2024-02-27 10:06 | XMS_ITS | Encounter Summary ---
Author Organization [facility] Address [address] [place] [address]. [place] [address] [place] [address] Care Team Providers Care Inspector Firearms Name Role Phone John Pinedo MD Primary Care Provider [phone] [phone] Encounter Details Date Type Department Care Team [...] on file Legal Sex Female 9:41 PM DESIGN CENTER CONSULTANT Gender Identity Female 04/24/2021 2:22 PM DESIGN CENTER CONSULTANT Sexual Orientation Choose not to disclose 2021 2:22 PM DESIGN CENTER CONSULTANT COVID-19 Exposure Response Date Recorded In the last 10 days, have yo u been in contact with someone who was confirmed or suspected to have Coronavirus/COVID-19? No / Unsure 05/20/2021 8:44 AM DESIGN CENTER CONSULTANT documented as of this encounter Plan of Treatment Not on file documented as of this encounter Visit Diagnoses Not on filedocumented in this encounter Additional Health Concerns Assessment Noted Time PHQ-9 Depression Total Score: 0 02/29/20 9:14 AM DESIGN CENTER CONSULTANT documented as of this encounter Care Teams Inspector Firearms Relationship Specialty Start Date End Date John Pinedo MD PCP - General INTERNAL MEDICINE 02/28/21 05/28/21 documented as of this encounter
--- OUTSIDE RECORDS SUMMARY | 2024-02-27 10:06 | XMS_ITS | Encounter Summary ---
Author Organization [facility] Address [address] [place] [address]. [place] [address] [place] [address] Care Team Providers Care Slot Machine Repairer Name Role Phone Jacquie Fair NP Primary Care Provider [phone] [phone] Reason for Referral * Consultation (Urgent) - Closed Specialty Diagnoses / Procedures Referred By Contac t Referred To Contact GASTROENTEROLOGY Diagnoses Antral gastritis Anemia, unspecified type Jacquie Fair NP [address] [place] [address] Phone: tel: fax: Garret John MD [address] [place] [address] Phone: tel: fax: Referral ID Status Reason Start Date Expiration Date Visits Re quested Visits Authorized [id number] Closed 07/07/2021 08/08/2022 100 100 Scheduling Instructions Fairly quick drop in blood count, recent dx of antral gastritis. Pt to be seen very soon. * Consultation (Urgent) - Closed Specialty Diagnoses / Procedures Referred By Contac t Referred To Contact INTERNAL MEDICINE Diagnoses Iron deficiency anemia, unspecified iron deficiency anemia type Jacquie Fair NP [address] [place] [address] Phone: tel: fax: Josh Akhtar, DO [address] [address] Phone: tel: fax: Referral ID Status Reason Start Date Expiration Date V isits Requested Visits Authorized [id number] Closed Specialty Services 07/07/2021 08/06/2022 99 99 Scheduling Instructions Please refer pt to Dr. Akhtar for anemia.Hx of needing blood transfusions. Reason for Visit * Reason Onset Date Comments Lab Results 07/07/2021 lab results Encounter Details Date Type Department Care Team (Late st Contact Info) Description 07/07/2021 Telephone [facility] Family Medicine - [place] [address] [facility] [address] [place] [id number] Jacquie Fair NP [address] [place] [address] Lab Results (lab results ) [...] on file Legal Sex Female 9:41 PM MANAGER GOVERNMENT Gender Identity Female 04/24/2021 2:22 PM MANAGER GOVERNMENT Sexual Orientation Choose not to disclose 2021 2:22 PM MANAGER GOVERNMENT COVID-19 Exposure Response Date Recorded In the [...] Ordered: 07/07/2021 Ambulatory referral to Gastroenterology ( [place]) Referral Routine Antral gastritis Anemia, unspecified type Ordered: 07/07/2021 documented as of this encounter Visit Diagnoses Diagnosis Iron deficiency anemia, unspecified iron deficiency anemia type- Primary Antral gastritis Other specified gastritis without mention of hemorrhage Anemia, unspecified type documented in this encounter Additional Health Concerns Assessment Noted Time PHQ-9 Depression Total Score: 0 02/29/20 21 9:14 AM MANAGER GOVERNMENT documented as of this encounter Care Teams Slot Machine Repairer Relationship Specialty Start Date End Date Jacquie Fair NP [address] [place] [address] PCP - General NURSE PRACTITIONER 06/20/21 documented as of this encounter
--- OUTSIDE RECORDS SUMMARY | 2024-02-27 10:16 | XMS_ITS | Clinical Summary ---
Author Organization [facility] Address [address] [place] [address] Phone Care Team Providers Care Test Pilot Name Role Phone Jacquie Fair APRN, TALENT SCOUT Primary Care Provid er Allergies Active Allergy [...] increased. Prior hx of having had an MD at age [age] years old when she [...] Department Care Team Description 01/14/2024 2:30 PM FOOD MIXER Office Visit [facility] [address] [address] Isabel Hernandez, DOT ETCHER, TALENT SCOUT Iron deficiency anemia, unspecified iron deficiency anemia type (Primary Dx) 01/14/2024 2:25 PM FOOD MIXER Lab [facility] [address] [address] Lab, Cc [facility] Iron deficiency anemia, unspecified iron deficiency anemia type 01/14/2024 Travel from Last 3 Months Immunizations Immunization Administration Dates Next Due Influenza Vaccine, Quadrivalent, PF 01/21/2023 Influenza Vaccine,unspecifie d Formulation 01/21/2023,02/01/2021,01/25/2020,01/05,12/23/2017 Pneumococcal conjugate PCV20 , polysaccharide [id number] conjugate, adjuvant, PF 01/21/2023 RHO(D) Immune Globulin- [...] Comments Blood Pressure 100/70 01/14/2024 2:48 PM FOOD MIXER Pulse 107 01/14/2024 2:48 PM FOOD MIXER Temperature 36.9 ??C (98.4 ??F) 01/14/2024 2:48 PM CS T Respiratory Rate 18 01/14/2024 2:48 PM FOOD MIXER Oxygen Saturation 99% 01/14/2024 2:48 PM FOOD MIXER Inhaled Oxygen Concentration - - Weight 42.7 kg (94 lb 1.6 oz) 01/14/2024 2:48 PM FOOD MIXER Height 157.5 cm (5' 2 ) 01/14/2024 2:48 PM FOOD MIXER Body Mass Index 17.21 01/14/2024 2:48 PM FOOD MIXER Plan of Treatment Health Maintenance Due Date [...] AUTO DIFF OH Routine 01/14/2024 2:40 PM FOOD MIXER FERRITIN Routine 01/14/2024 2:40 PM FOOD MIXER Iron deficiency anemia, unspecified iron deficiency anemia type IRON W/ IRON BINDING CAPACITY OH Routine 01/14/2024 2:40 PM FOOD MIXER Iron deficiency anemia, unspecified iron deficiency anemia type CMP (COMPREHENSIVE METABOLIC PANEL) Routine 01/14/2024 2:40 PM FOOD MIXER Iron deficiency anemia, unspecified iron deficiency anemia type from Last 3 Months Results * IRON W/ IRON BINDING CAPACITY OH (01/14/2024 2:40 PM FOOD MIXER) IRON 111 50 - 212 ug/dL [facility] DEVEL[facility] UIBC 194 155 - 355 ug/dL [facility]EL[facility] TIBC 305 261 - 478 ug/dl [facility]EL[facility] % Saturation 36 20 - 50 % [facility] DEVEL[facility] 01/14/2024 2:40 PM FOOD MIXER Narrative [facility] DEVEL[facility] - 01/14/2024 3:35 PM FOOD MIXER Release to patient->Immediate us Reina Macedo DOT ETCHER, TALENT SCOUT LAB SEND OUTS Fin al Result [facility]IOR [employer]G[facility] DEVEL[facility] [place] [address], * (ABNORMAL) CBC WITH AUTO DIFF [place] (01/14/2024 2:40 PM FOOD MIXER) WBC 5.6 4.0 - 10.0 10*3/uL [facility] DEVEL[facility] HGB 13.6 11.2 - 15.7 g/dL [facility] DEVEL[facility] HCT 40.2 34.1 - 44.9 % [facility] [employer] DEVEL[facility] PLT 268 163 - 369 10*3/uL [facility] DEVEL[facility] MPV 9.5 9.4 - 12.4 fL [facility] DEVEL[facility] RBC 4.57 3.93 - 5.22 10*6/uL [facility] DEVEL[facility] MCV 88 79 - 95 fL [facility] MCH 29.8 25.6 - 32.2 pg [facility] DEVEL[facility] MCHC 33.8 32.2 - 36.5 g/dL [facility]G[employer] DEVEL[facility] RDW 12.0 11.6 - 14.4 % [facility] DEVEL[facility] Neutrophils % 52.0 36.0 - 66.0 % [facility] DEVEL[facility] Lymphocytes % 39.2 19.0 - 40.0 % [facility] DEVEL[facility] Monocytes % 5.7 4.1 - 12.1 % [facility] DEVEL[facility] Eosinophils % 1.8 0.0 - 3.5 % [facility] DEVEL[facility] Basophils % 1.1(H) 0.0 - 1.0 % [facility] DEVEL[facility] Absolute Neutrophils 2.9 1.4 - 6.6 10*3/uL [facility] DEVEL[facility] Absolute Lymphocytes 2.2 0.8 - 4.0 10*3/uL [facility] DEVEL[facility] Absolute Monocytes 0.3 0.2 - 1.2 10*3/uL [facility] Absolute Eosinophils 0.1 0.0 - 0.4 10*3/uL [facility] Absolute Basophils 0.1 0.0 - 0.1 10*3/uL [facility] DEVEL[facility] 01/14/2024 2:40 PM FOOD MIXER us Reina Macedo APRN, TALENT SCOUT LAB SEND OUTS Fin al Result [facility]ENIOR COG[employer] DEVELOPER [facility] [place] [address], * FERRITIN (01/14/2024 2:40 PM FOOD MIXER) Ferritin 25 11 - 307 ng/mL [facility] Blood 01/14/2024 2:40 PM FOOD MIXER Narrative [facility] [employer] DEVEL[facility] - 01/15/2024 2:07 PM FOOD MIXER Release to patient->Immediate Reina Macedo APRN, CNP CHEMISTRY ORDERABLE S Final Result [facility] DEVEL[facility] [place] [address], * (ABNORMAL) CMP (COMPREHENSIVE METABOLIC PANEL) (01/14/2024 2:40 PM FOOD MIXER) Glucose 112(H) 70 - 105 mg/dL [facility] Blood Urea Nitrogen 13 7 - 25 mg/dL [facility] Creatinine 0.9 0.6 - 1.2 mg/dL [facility] Sodium 141 136 - 145 mEq/L [facility] Potassium 3.9 3.5 - 5.1 mEq/L [facility] Chloride 104 98 - 107 mEq/L [facility] Bicarbonate 29 21 - 31 mEq/L [facility] Total Bilirubin 0.4 0.3 - 1.0 mg/dL [facility] Alk. Phosphatase 32(L) 34 - 104 U/L [facility] Aspartate Aminotransferase 16 13 - 39 U/L [facility] Alanine Aminotransferase 13 7 - 52 U/L [facility] Total Protein 6.4 6.4 - 8.9 g/dL [facility] Albumin 4.4 3.5 - 5.7 g/dL [facility] Calcium 9.3 8.6 - 10.3 mg/dL [facility] Anion Gap 11.9 7.0 - 15.0 mEq/L [facility] Globulin 2.0 2.0 - 3.5 g/dL [facility] EGFR 84 >60 ml/min/1. 73m2 [facility] SENIOR COGNOS DEVELOPER [facility] Comment: This eGFR is calculated using 2020 CKD-EPI Creatinine equation without race modifier based on the NKF-ASN task force recommendations Blood 01/14/2024 2:4 0 PM FOOD MIXER Narrative [facility] DEVEL[facility] - 01/14/2024 3:35 PM FOOD MIXER Release to patient->Immediate IS THE PATIENT REQUIRED TO BE FASTING FOR 8 HOURS?->No Reina Macedo APRN, NISHI CHEMISTRY ORDERABLE S Final Result [facility] [place] [address], [place] [phone] from Last 3 Months Insurance Care Teams Test Pilot Relationship Specialty Start Date End Date Jacquie Fair APRN, TALENT SCOUT [address] [facility], [address] [place] [address] PCP - General Advanced Practice Nurse 07/11/21
--- OUTSIDE RECORDS SUMMARY | 2024-02-27 10:17 | XMS_ITS | Encounter Summary ---
Author Organization [employer] Care Team Providers Care Printing Equipment Mechanic Apprentice Name Role Phone Jacquie Fair APRN, CNP [...] on filedocumented in this encounter Care Teams Printing Equipment Mechanic Apprentice Relationship Specialty Start Date End Date Jacquie Fair APRN, CNP [address], [address] [place], [place] [address] PCP - General Advanced Practice Nurse 07/11/21 documented as of this encounter
--- OUTSIDE RECORDS SUMMARY | 2024-02-27 10:17 | XMS_ITS | Encounter Summary ---
Author Organization [facility] Address [address] [place] [address] Phone Care Team Providers Care Health Informatics Instructor Name Role Phone Jacquie Fair APRN, CNP Primary Care Provid er Reason for Visit * Reason Comments Follow-up Encounter Details Date Type Department Care Team (Late st Contact Info) Description 09/04/2022 8:00 AM CDT Office Visit [facility] [place] [address] [place] [address] Josh Akhtar, DO [address] [place] [address] Iron deficiency anemia, unspecified iron [...] : 1985 Encounter Dept: CC MED ONC [facility] Encounter Date: 09/04/2022 Care Team: Current Providers PCP: Jacquie Fair APRN, HOT DIP PLATER Encounter Provider: Josh Akhtar DO Referring Provider: [...] completed July 2022. 4. Tranexamic acid per SPEECH THERAPY DIRECTOR. 5. IV iron. CURRENT TREATMENT: 1. Surveillance. [...] Diagnosis Date ??? ADHD ??? Fibromyalgia ??? Amrio's thyroiditis Past Surgical History: Procedure Laterality Date [...] 760 - 4,000 cells/uL Final ??? Absolute [facility] Count 08/30/2022 282 160 - 1,200 cells/uL [...] Primary documented in this encounter Care Teams Health Informatics Instructor Relationship Specialty Start Date End Date Jacquie Fair, CARD BOXER, HOT DIP PLATER [address] [facility] [[email or web address] [address] [place] [address] PCP - General Advanced Practice Nurse 07/11/21 documented as of this encounter
--- OUTSIDE RECORDS SUMMARY | 2024-02-27 10:17 | XMS_ITS | Encounter Summary ---
Author Organization [facility] Address [address] [place] [address] Phone Care Team Providers Care Ship'S Pilot Name Role Phone Jacquie Fair APRN, SUPERVISOR ROLLER SHOP Primary Care Provid er Encounter Details Date Type Department Care Team (Late st Contact Info) Description 02/28/2022 9:00 AM BODY RECALL INSTRUCTOR Lab [facility] [address] [place] [address] Nurse, Cc Adrien Iron deficiency [...] Coronavirus/COVID-19? No / Unsure 02/28/2022 8:32 AM BODY RECALL INSTRUCTOR documented as of this encounter Functional Status * Question Answer Date of Assessment Author Little interest or pleasure in doing things Not at all 02/28/2022 8:37 AM BODY RECALL INSTRUCTOR Josefa Conde, LAW CLERK Feeling down, depressed, or hopeless Not at all 02/28/2022 8:37 AM BODY RECALL INSTRUCTOR Josefa Conde LPN * Over the past 2 weeks, how often have you been bothered by any of the following problems? Question Answer Date of Assessment Author Patient Health Questionnaire -2 Score 0 02/28/2022 8:37 AM BODY RECALL INSTRUCTOR Josefa Conde LPN documented as of this encounter Progress Notes * Maria Eugenia Fermin RN - 02/28/2022 9:00 AM CST Blood work drawn from R AC. Gauze/tape placed over site. D/c clinic ambulatory. RECALL INSTRUCTOR documented in this encounter Plan of Treatment Not on file documented as of this encounter Visit Diagnoses Diagnosis Iron deficiency anemia, unspecified iron deficiency anemia type documented in this encounter Care Teams Ship'S Pilot Relationship Specialty Start Date End Date Jacquie Fair APRN, SUPERVISOR ROLLER SHOP [address] [facility] [address], [address] [place] [address] PCP - General Advanced Practice Nurse 07/11/21 documented as of this encounter
--- OUTSIDE RECORDS SUMMARY | 2024-02-27 10:17 | XMS_ITS | Encounter Summary ---
Author Organization [facility] Address [address] [place] [address] Phone Care Team Providers Care Rd Project Manager Name Role Phone Jacquie Fair APRN, CNP Primary Care Provid er Reason for Visit * Reason Comments Follow-up Encounter Details Date Type Department Care Team (Late st Contact Info) Description 01/14/2024 2:30 PM MANAGER COMMODITIES Office Visit [facility] [place] [address] [place] [address] Isabel Hernandez, CLOTH CLASSER, BIOSTATISTICIAN [address] [place] [address] Iron deficiency anemia, unspecified iron deficiency [...] Comments Blood Pressure 100/70 01/14/2024 2:48 PM MANAGER COMMODITIES Pulse 107 01/14/2024 2:48 PM MANAGER COMMODITIES Temperature 36.9 ??C (98.4 ??F) 01/14/2024 2:48 PM CS T Respiratory Rate 18 01/14/2024 2:48 PM MANAGER COMMODITIES Oxygen Saturation 99% 01/14/2024 2:48 PM MANAGER COMMODITIES Inhaled Oxygen Concentration - - Weight 42.7 kg (94 lb 1.6 oz) 01/14/2024 2:48 PM MANAGER COMMODITIES Height 157.5 cm (5' 2 ) 01/14/2024 2:48 PM MANAGER COMMODITIES Body Mass Index 17.21 01/14/2024 2:48 PM MANAGER COMMODITIES documented in this encounter Functional Status * Question Answer Date of Assessment Author Little interest or pleasure in doing things Not at all 01/14/2024 2:43 PM MANAGER COMMODITIES Seble Zimmer CMA Feeling down, depressed, or hopeless Not at all 01/14/2024 2:43 PM MANAGER COMMODITIES Seble Zimmer CMA * Over the past 2 weeks, how often have you been bothered by any of the following problems? Question Answer Date of Assessment Author Patient Health Questionnaire -2 Score 0 01/14/2024 2:43 PM MANAGER COMMODITIES Seble Zimmer CMA documented as of this encounter Progress Notes * Isabel Hernandez APRN, CNP - 01/14/2024 2:30 PM CST Images from the original note were not included. Patient: Shagufta Lamar Age: 38 y.o. : 1985 Encounter Dept: CC MED ON[facility] Encounter Date: 01/14/2024 Care Team: Current Providers [...] completed July 2022. 4. Tranexamic acid per SPACECRAFT SYSTEMS ENGINEER. 5. IV iron. CURRENT TREATMENT: 1. Surveillance. [...] Josh Akhtar DO at 01/16/2024 12:37 PM MANAGER COMMODITIES GER COMMODITIES GER COMMODITIES GER COMMODITIES documented in this encounter Plan of Treatment [...] Primary documented in this encounter Care Teams Rd Project Manager Relationship Specialty Start Date End Date Jacquie Fair APRN, BIOSTATISTICIAN [address] [facility] [facility], [address] [place] [address] PCP - General Advanced Practice Nurse 07/11/21 documented as of this encounter
--- OUTSIDE RECORDS SUMMARY | 2024-02-27 10:17 | XMS_ITS | Encounter Summary ---
Author Organization [facility] Address [address] [place] [address] Phone Care Team Providers Care Bladder Blower Name Role Phone Jacquie Fair APRN, CNP Primary Care Provid er Encounter Details Date Type Department Care Team (Late st Contact Info) Description 07/16/2023 1:35 PM CDT Lab [facility] [address] [address] Lab, Cc [facility] Iron deficiency anemia, unspecified iron [...] Vitamin B12 256 180 - 914 pg/mL [facility] 07/16/2023 1:40 PM CDT Jacquie Hugo Fair COST ESTIMATING ENGINEER, SUPERVISOR TRANSCRIBING OPERATORS CHEMISTRY ORDERABLES Final Result Performing Organization Address City/[facility]/ZIP Co de Phone Number [facility] [place] [address], * FOLIC ACID (FOLATE) (07/16/2023 1:40 PM CDT) Folate >20.00 >=5.90 ng/mL [facility] 07/16/2023 1:40 PM CDT Jacquie Hugo Palomot COST ESTIMATING ENGINEER, SUPERVISOR TRANSCRIBING OPERATORS CHEMISTRY ORDERABLES Final Result [facility] [address] [place] [address], * FERRITIN (07/16/2023 1:40 PM CDT) Ferritin 16 11 - 307 ng/mL [facility] MACHINIST [facility] 07/16/2023 1:40 PM CDT Jacquie Fair COST ESTIMATING ENGINEER, SUPERVISOR TRANSCRIBING OPERATORS CHEMISTRY ORDERABLES Final Result CANCER AUTO MACHINIST [facility] [address] [place] [address], * CBC WITH AUTO DIFF [place] (07/16/2023 1:40 PM CDT) Pathologist [facility] WBC 4.0 4.0 - 10.0 10*3/uL CANCER AUTO MACHINIST [facility] HGB 12.1 11.2 - 15.7 g/dL CANCER AUTO MACHINIST [facility] HCT 36.1 34.1 - 44.9 % CANCER AUTO MACHINIST [facility] PLT 225 163 - 369 10*3/uL CANCER AUTO MACHINIST [facility] MPV 9.9 9.4 - 12.4 fL CANCER AUTO MACHINIST [facility] RBC 4.01 3.93 - 5.22 10*6/uL CANCER AUTO MACHINIST [facility] MCV 90 79 - 95 fL [facility] MCH 30.2 25.6 - 32.2 pg CANCER AUTO MACHINIST [facility] MCHC 33.5 32.2 - 36.5 g/dL CANCER AUTO MACHINIST [facility] RDW 12.5 11.6 - 14.4 % CANCER AUTO MACHINIST [facility] Neutrophils % 53.6 36.0 - 66.0 % CANCER AUTO MACHINIST [facility] Lymphocytes % 37.2 19.0 - 40.0 % CANCER AUTO MACHINIST [facility] Monocytes % 5.5 4.1 - 12.1 % CANCER AUTO MACHINIST [facility] Eosinophils % 2.5 0.0 - 3.5 % CANCER AUTO MACHINIST [facility] Basophils % 1.0 0.0 - 1.0 % CANCER AUTO MACHINIST [facility] Absolute Neutrophils 2.2 1.4 - 6.6 10*3/uL [facility] Absolute Lymphocytes 1.5 0.8 - 4.0 10*3/uL CANCER AUTO MACHINIST [facility] Absolute Monocytes 0.2 0.2 - 1.2 10*3/uL CANCER AUTO MACHINIST [facility] Absolute Eosinophils 0.1 0.0 - 0.4 10*3/uL CANCER AUTO MACHINIST [facility] Absolute Basophils 0.0 0.0 - 0.1 10*3/uL CANCER AUTO MACHINIST [facility] 07/16/2023 1:40 PM CDT Jacquie Fair COST ESTIMATING ENGINEER, SUPERVISOR TRANSCRIBING OPERATORS LAB SEND OUTS Mary l Result Performing Organization Address City/[facility]/ZIP Co de Phone Number CANCER AUTO MACHINIST [facility] [place] [address], [place] [phone] * IRON W/ IRON BINDING CAPACITY [place] (07/16/2023 1:40 PM CDT) IRON 84 50 - 212 ug/dL [facility] UIBC 208 155 - 355 ug/dL [facility] TIBC 292 261 - 478 ug/dl [facility] % Saturation 29 20 - 50 % CAN[facility]ER AUTO MACHINIST [facility] 07/16/2023 1:40 PM CDT Jacquie Fair COST ESTIMATING ENGINEER, SUPERVISOR TRANSCRIBING OPERATORS LAB SEND OUTS Mary l Result Performing Organization Address City/[facility]/ZIP Co de Phone Number [facility] [place] [address], [place] [phone] * (ABNORMAL) CMP (COMPREHENSIVE METABOLIC PANEL) (07/16/2023 1:40 PM CDT) Glucose 101 70 - 105 mg/dL [facility] Blood Urea Nitrogen 13 7 - 25 mg/dL [facility] Creatinine 0.8 0.6 - 1.2 mg/dL [facility] Sodium 142 136 - 145 mEq/L [facility] Potassium 3.8 3.5 - 5.1 mEq/L [facility] Chloride 106 98 - 107 mEq/L [facility] Bicarbonate 29 21 - 31 mEq/L [facility] Total Bilirubin 0.5 0.3 - 1.0 mg/dL [facility] Alk. Phosphatase 27(L) 34 - 104 U/L [facility] Aspartate Aminotransferase 14 13 - 39 U/L [facility] Alanine Aminotransferase 12 7 - 52 U/L [facility] Total Protein 6.4 6.4 - 8.9 g/dL [facility] Albumin 4.3 3.5 - 5.7 g/dL [facility] Calcium 9.3 8.6 - 10.3 mg/dL [facility] Anion Gap 10.8 7.0 - 15.0 mEq/L [facility] Globulin 2.1 2.0 - 3.5 g/dL [facility] EGFR 97 >60 ml/min/1. 73m2 [facility] AUTO MACHINIST [facility] Comment: This eGFR is calculated using 2020 CKD-EPI Creatinine equation without race modifier based on the NKF-ASN task force recommendations 07/16/2023 1:40 PM CDT us Jacquie Fair APRN, NISHI CHEMISTRY ORDERABLES Final Result CANCER AUTO MACHINIST [facility] [place] [address], documented in this encounter Visit Diagnoses Diagnosis Iron deficiency anemia, unspecified iron deficiency anemia type documented in this encounter Care Teams Bladder Blower Relationship Specialty Start Date End Date Jacquie Fair APRN, SUPERVISOR TRANSCRIBING OPERATORS [address] [facility], [address] [place] [address] PCP - General Advanced Practice Nurse 07/11/21 documented as of this encounter
--- OUTSIDE RECORDS SUMMARY | 2024-02-27 10:17 | XMS_ITS | Encounter Summary ---
Author Organization [facility] Address [address] [place] [address] Phone Care Team Providers Care Bridge Rigger Name Role Phone Jacquie Fair APRN, CNP Primary Care Provid er Reason for Visit * Reason Comments Follow-up Encounter Details Date Type Department Care Team (Late st Contact Info) Description 07/16/2023 1:45 PM CDT Office Visit [facility] [address] [place] [address] Reina Sorto APRN, CNP [address] [place] [id number] Iron deficiency anemia, unspecified iron deficiency [...] : 1985 Encounter Dept: [facility] MED ON[facility] Encounter Date: 07/16/2023 Care Team: Current Providers PCP: Jacquie Fair APRN, CNP Encounter Provider: Reina Sorto APRN, CNP Referring Provider: not found Nurse Practitioner: Reina Sroto APRN, CNP PATIENT IDENTIFICATION: This is a [...] completed July 2022. 4. Tranexamic acid per CHIEF OPERATOR. 5. IV iron. CURRENT TREATMENT: 1. [...] reviewed. Josh Akhtar DO, EDILIA Sorto, DNP, POSTER-BC/dsp Vitals: Vitals: 07/16/23 1350 BP: 92/60 BP [...] CMP (COMPREHENSIVE METABOLIC PANEL) (01/14/2024 2:40 PM LAND SURVEYING MANAGER) Glucose 112(H) 70 - 105 mg/dL [facility] Blood Urea Nitrogen 13 7 - 25 mg/dL [facility] Creatinine 0.9 0.6 - 1.2 mg/dL [facility] Sodium 141 136 - 145 mEq/L [facility] Potassium 3.9 3.5 - 5.1 mEq/L [facility] Chloride 104 98 - 107 mEq/L [facility] Bicarbonate 29 21 - 31 mEq/L [facility] Total Bilirubin 0.4 0.3 - 1.0 mg/dL [facility] Alk. Phosphatase 32(L) 34 - 104 U/L [facility] Aspartate Aminotransferase 16 13 - 39 U/L [facility] Alanine Aminotransferase 13 7 - 52 U/L [facility] Total Protein 6.4 6.4 - 8.9 g/dL [facility] Albumin 4.4 3.5 - 5.7 g/dL [facility] Calcium 9.3 8.6 - 10.3 mg/dL [facility] Anion Gap 11.9 7.0 - 15.0 mEq/L [facility] Globulin 2.0 2.0 - 3.5 g/dL [facility] EGFR 84 >60 ml/min/1. 73m2 CANCER MANAGER DEPARTMENT [facility] Comment: This eGFR is calculated using 2020 CKD-EPI Creatinine equation without race modifier based on the NKF-ASN task force recommendations Blood 01/14/2024 2:40 PM LAND SURVEYING MANAGER Narrative [facility] - 01/14/2024 3:35 PM LAND SURVEYING MANAGER Release to patient->Immediate IS THE PATIENT REQUIRED TO BE FASTING FOR 8 HOURS?->No Reina Sorto APRN, PRINCIPAL TECHNICAL SPECIALIST CHEMISTRY ORDERABLE S Final Result CANCER MANAGER DEPARTMENT [facility] [address] [place] [address], [place] [phone] * IRON W/ IRON BINDING CAPACITY [place] (01/14/2024 2:40 PM LAND SURVEYING MANAGER) IRON 111 50 - 212 ug/dL [facility] UIBC 194 155 - 355 ug/dL [facility] TIBC 305 261 - 478 ug/dl [facility] % Saturation 36 20 - 50 % CANCER MANAGER DEPARTMENT [facility] 01/14/2024 2:40 PM LAND SURVEYING MANAGER Narrative [facility] - 01/14/2024 3:35 PM LAND SURVEYING MANAGER Release to patient->Immediate Reina Sorto APRN, PRINCIPAL TECHNICAL SPECIALIST LAB SEND OUTS Fin al Result CANCER MANAGER DEPARTMENT [facility] [address] [place] [address], [place] [phone] * FERRITIN (01/14/2024 2:40 PM LAND SURVEYING MANAGER) Ferritin 25 11 - 307 ng/mL CANCER MANAGER DEPARTMENT [facility] Blood 01/14/2024 2:40 PM LAND SURVEYING MANAGER Narrative CANCER MANAGER DEPARTMENT [facility] - 01/15/2024 2:07 PM LAND SURVEYING MANAGER Release to patient->Immediate Reina Sorto APRN, NISHI CHEMISTRY ORDERABLE S Final Result CANCER MANAGER DEPARTMENT [facility] [address] [place] [address], documented in this encounter Visit Diagnoses Diagnosis Iron deficiency anemia, unspecified iron deficiency anemia type- Primary Iron deficiency anemia, unspecified iron deficiency anemia type documented in this encounter Care Teams Bridge Rigger Relationship Specialty Start Date End Date Jacquie Fair APRN, PRINCIPAL TECHNICAL SPECIALIST [address] [facility], [address] [place] [address] PCP - General Advanced Practice Nurse 07/11/21 documented as of this encounter
--- OUTSIDE RECORDS SUMMARY | 2024-02-27 10:17 | XMS_ITS | Encounter Summary ---
Author Organization [facility] Address [address] [place] [address] Phone Care Team Providers Care Outside Maintenance Worker Name Role Phone Jacquie Fair APRN, CNP Primary Care Provid er Encounter Details Date Type Department Care Team (Late st Contact Info) Description 06/07/2022 1:10 PM CDT Lab [facility] [address] [address] Lab, Cc [facility] Iron deficiency anemia, unspecified iron deficiency [...] 25 HYDROXY TOTAL (06/07/2022 1:11 PM CDT) [facility] 25() Vitamin D, Total 34.2 30.0 - 100.0 ng/mL [facility] Comment: The Clinical Guidelines Subcommittee of the Endocrine Society Task Force established the guidelines below for recommended serum 25(OH) vitamin D levels. ??Other clinical reference citations may show different values. Deficient ? <20 ? Insufficient ? 20 to <30 ? Sufficient ? 30 to 100 ? Upper Safety Limit ?>100 Blood 06/07/2022 1:11 PM CDT Narrative [facility] - 06/08/2022 2:59 PM CDT Release to patient->Immediate Yaquelin Barker PAC CHEMISTRY ORDERABLES Final Result Performing Organization Address City/[facility]/ZIP Co de Phone Number CANCER SCIENCE MANAGER [facility] [address] [place] [address], [place] [phone] * VITAMIN B12 (06/07/2022 1:11 PM CDT) Vitamin B12 296 180 - 914 pg/mL CANCER SCIENCE MANAGER [facility] Blood 06/07/2022 1:11 PM CDT Narrative CANCER SCIENCE MANAGER [facility] - 06/08/2022 3:13 PM CDT Release to patient->Immediate Yaquelin Barker PAC CHEMISTRY ORDERABLES Final Result Performing Organization Address [facility] Co de Phone Number CANCER SCIENCE MANAGER [facility] [address] [place] [address], [place] [phone] * FERRITIN (06/07/2022 1:11 PM CDT) Ferritin 44 11 - 307 ng/mL [facility] Blood 06/07/2022 1:11 PM CDT [facility] - 06/08/2022 3:06 PM CDT Release to patient->Immediate Yaquelin [place] PAC CHEMISTRY ORDERABLES Final Result Performing Organization Address City/[facility]/ZIP Co de Phone Number CANCER SCIENCE MANAGER [facility] [address] [place] [address], [place] [phone] * IRON W/ IRON BINDING CAPACITY [place] (06/07/2022 1:11 PM CDT) IRON 86 50 - 212 ug/dL [facility] UIBC 222 155 - 355 ug/dL [facility] TIBC 308 261 - 478 ug/dl [facility] % Saturation 28 20 - 50 % [facility] Blood 06/07/2022 1:11 PM CDT Narrative [facility] - 06/07/2022 2:12 PM CDT Release to patient->Immediate Yaquelin Barker PAC LAB SEND OUTS Final Resu lt Performing Organization Address [facility] Co de Phone Number [facility] [address] [address], * (ABNORMAL) LACTATE DEHYDROGENASE (LD) (06/07/2022 1:11 PM CDT) LDH 119(L) 140 - 271 U/L [facility] Blood 06/07/2022 1:11 PM CDT Narrative [facility] - 06/07/2022 2:12 PM CDT Release to patient->Immediate Yaquelin Barker PAC CHEMISTRY ORDERABLES Final Result Performing Organization Address [facility] de Phone Number [facility] [address] [place] [address], * CMP (COMPREHENSIVE METABOLIC PANEL) (06/07/2022 1:11 PM CDT) Glucose 90 70 - 105 mg/dL [facility] Blood Urea Nitrogen 12 7 - 25 mg/dL [facility] Creatinine 0.9 0.6 - 1.2 mg/dL [facility] Sodium 140 136 - 145 mEq/L [facility] Potassium 3.7 3.5 - 5.1 mEq/L [facility] Chloride 102 98 - 107 mEq/L [facility] Bicarbonate 29 21 - 31 mEq/L [facility] Total Bilirubin 0.5 0.3 - 1.0 mg/dL [facility] Alk. Phosphatase 38 34 - 104 U/L [facility] Aspartate Aminotransferase 19 13 - 39 U/L [facility] Alanine Aminotransferase 13 7 - 52 U/L [facility] Total Protein 7.4 6.4 - 8.9 g/dL [facility] Albumin 4.7 3.5 - 5.7 g/dL [facility] Calcium 10.0 8.6 - 10.3 mg/dL [facility] Anion Gap 12.7 7.0 - 15.0 mEq/L [facility] Globulin 2.7 2.0 - 3.5 g/dL [facility] EGFR 85 >60 ml/min/1. 73m2 [facility] Comment: This eGFR is calculated using 2020 CKD-EPI Creatinine equation without race modifier based on the NKF-ASN task force recommendations Blood 06/07/2022 1:11 PM CDT Narrative [facility] - 06/07/2022 2:12 PM CDT Release to patient->Immediate IS THE PATIENT REQUIRED TO BE FASTING FOR 8 HOURS?->No Yaquelin Barker PAC CHEMISTRY ORDERABLES Final Result [facility] [place] [address], * (ABNORMAL) COMPLETE BLOOD COUNT (CBC) WITH DIFF (06/07/2022 1:11 PM CDT) WBC 8.1 4.0 - 10.0 10*3/uL [facility] HGB 13.6 11.2 - 15.7 g/dL [facility] HCT 39.1 34.1 - 44.9 % [facility] PLT 277 163 - 369 10*3/uL [facility] MPV 9.7 9.4 - 12.4 fL [facility] RBC 4.40 3.93 - 5.22 10*6/uL [facility] MCV 89 79 - 95 fL [facility] MCH 30.9 25.6 - 32.2 pg [facility] MCHC 34.8 32.2 - 36.5 g/dL [facility] RDW 12.6 11.6 - 14.4 % [facility] Absolute Neutrophil Count 5,810 cells/uL [facility] Absolute Seg Count 5,810 1,440 - 6,600 cells/uL [facility] Absolute Lymph Count 1,533 760 - 4,000 cells/uL [facility] Absolute [place] Count 404 160 - 1,200 cells/uL [facility] Absolute Eos Count 323(H) 0 - 300 cells/uL [facility] Segmented Neutrophils 72(H) 36 - 66 % [facility] Lymphocytes 19 19 - 40 % [facility] Monocytes 5 4 - 12 % [facility] Eosinophils 4(H) 0 - 3 % [facility] WBC Estimate Normal [facility] Platelet Estimate Normal [facility] RBC Morphology Normal [facility] Blood 06/07/2022 1:11 PM CDT Narrative [facility] - 06/07/2022 2:12 PM CDT Release to patient->Immediate Yaquelin Barker [facility] HEMATOLOGY ORDERABLES Mary iverson Result [facility] [address] [place] [address], documented in this encounter Visit Diagnoses Diagnosis Iron deficiency anemia, unspecified iron deficiency anemia type Vitamin D deficiency Unspecified vitamin D deficiency documented in this encounter Care Teams Outside Maintenance Worker Relationship Specialty Start Date End Date Jacquie Fair APRN, INSTALLER [address] [facility], [address] [place] [address] PCP - General Advanced Practice Nurse 07/11/21 documented as of this encounter
--- OUTSIDE RECORDS SUMMARY | 2024-02-27 10:17 | XMS_ITS | Encounter Summary ---
Author Organization [facility] Address [address] [place] [address] Phone Care Team Providers Care Precision Lens Technician Name Role Phone Jacquie Fair APRN, CNP Primary Care Provid er Encounter Details Date Type Department Care Team (Late st Contact Info) Description 06/06/2022 8:45 AM CDT Lab [facility] [address] [address] Lab, Cc [facility] Iron deficiency anemia, unspecified iron deficiency [...] 5 0 - 30 mm/hr [facility] Blood 06/06/2022 8:47 AM CDT [facility] - 06/06/2022 10:25 AM CDT Release to patient->Immediate Yaquelin Barker PAC HEMATOLOGY ORDERABLES Amry l Result Performing Organization Address [facility]/ZIP Co de Phone Number [facility] [place] [address], * C-REACTIVE PROTEIN (CRP) QUANT (06/06/2022 8:47 AM CDT) CRP <5.0 <5.0 mg/L [facility] Blood 06/06/2022 8:47 AM CDT [facility] HEALTH INSPECTOR FOODCHI [facility] - 06/08/2022 2:37 PM CDT Release to patient->Immediate Yaquelin Barker PAC CHEMISTRY ORDERABLES Final Result CANCER HEALTH INSPECTOR FOOD OF [facility] [address] [place] [address], documented in this encounter Visit Diagnoses Diagnosis Iron deficiency anemia, unspecified iron deficiency anemia type Vitamin D deficiency Unspecified vitamin D deficiency documented in this encounter Care Teams Precision Lens Technician Relationship Specialty Start Date End Date Jacquie Fair APRN, WASHING MACHINE INSTALLER [address] [facility], [address] [place] [address] PCP - General Advanced Practice Nurse 07/11/21 documented as of this encounter
--- OUTSIDE RECORDS SUMMARY | 2024-02-27 10:17 | XMS_ITS | Encounter Summary ---
Author Organization [facility] Address [address] [place] [address] Phone Care Team Providers Care Lpn Rn Hospice Name Role Phone Jacquie Fair APRN, CNP Primary Care Provid er Reason for Visit * Reason Comments Follow-up Encounter Details Date Type Department Care Team (Late st Contact Info) Description 06/06/2022 8:00 AM CDT Office Visit [facility] [address] [id number] Yaquelin Jhaveri, JANESSA Iron deficiency anemia, unspecified [...] 06/06/2022 Care Team: Current Providers PCP: Jacquie Fari APRN, CNP Encounter Provider: Yaquelin Jhaveri PAC Referring Provider: not found Physician Power Lineman Technician: Yaquelin Jhaveri PAC PRIMARY PHYSICIAN: Jacquie [...] 12/28/20. CURRENT TREATMENT: 1. Tranexamic acid per LOGGING SUPERINTENDENT. 2. Uterine biopsy and ablation per LOGGING SUPERINTENDENT in March. 3. IV iron supplementation (taking [...] AM CDT) Folate >20.00 >=5.90 ng/mL [facility] Blood 08/30/2022 10:2 4 AM CDT [facility] - 08/31/2022 2:10 PM CDT Release to patient->Immediate IS THE PATIENT REQUIRED TO BE FASTING FOR 12 HOURS?->No Yaquelin Jhaveri PAC CHEMISTRY ORDERABLES Final Result Performing Organization Address City/[facility]/ZIP Co de Phone Number [facility] [address] [place] [address], [place] [phone] * FERRITIN (08/30/2022 10:24 AM CDT) Ferritin 31 11 - 307 ng/mL [facility] Blood 08/30/2022 10:2 4 AM CDT [facility] - 08/31/2022 2:03 PM CDT Release to patient->Immediate Yaquelin Jhaveri PAC CHEMISTRY ORDERABLES Final Result [facility] [address] [place] [address], [place] [phone] * (ABNORMAL) IRON W/ IRON BINDING CAPACITY [place] (08/30/2022 10:24 AM CDT) IRON 60 50 - 212 ug/dL [facility] UIBC 250 155 - 355 ug/dL [facility] TIBC 310 261 - 478 ug/dl [facility] % Saturation 19(L) 20 - 50 % [facility] Blood 08/30/2022 10:2 4 AM CDT Narrative [facility] - 08/30/2022 12:48 PM CDT Release to patient->Immediate Yaquelin Jhaveri PAC LAB SEND OUTS Final Resu lt [facility] [place] [address], * (ABNORMAL) LACTATE DEHYDROGENASE (LD) (08/30/2022 10:24 AM CDT) LDH 103(L) 140 - 271 U/L [facility] Blood 08/30/2022 10:[address] [facility] - 08/30/2022 12:48 PM CDT Release to patient->Immediate Yaquelin Jhaveri PAC CHEMISTRY ORDERABLES Final Result Performing Organization Address City/[facility] Co de Phone Number [facility] [place] [address], [place] [phone] * (ABNORMAL) CMP (COMPREHENSIVE METABOLIC PANEL) (08/30/2022 10:24 AM CDT) Glucose 85 70 - 105 mg/dL [facility] Blood Urea Nitrogen 12 7 - 25 mg/dL [facility] Creatinine 0.8 0.6 - 1.2 mg/dL [facility] Sodium 142 136 - 145 mEq/L [facility] Potassium 3.9 3.5 - 5.1 mEq/L [facility] Chloride 107 98 - 107 mEq/L [facility] Bicarbonate 26 21 - 31 mEq/L [facility] Total Bilirubin 0.4 0.3 - 1.0 mg/dL [facility] Alk. Phosphatase 32(L) 34 - 104 U/L [facility] Aspartate Aminotransferase 16 13 - 39 U/L [facility] Alanine Aminotransferase 11 7 - 52 U/L [facility] Total Protein 6.7 6.4 - 8.9 g/dL [facility] Albumin 4.6 3.5 - 5.7 g/dL [facility] Calcium 9.5 8.6 - 10.3 mg/dL [facility] Anion Gap 12.9 7.0 - 15.0 mEq/L [facility] Globulin 2.1 2.0 - 3.5 g/dL [facility] EGFR 97 >60 ml/min/1. 73m2 [facility] Comment: This eGFR is calculated using 2020 CKD-EPI Creatinine equation without race modifier based on the NKF-ASN task force recommendations Blood 08/30/2022 10:2 4 AM CDT Narrative [facility] - 08/30/2022 12:48 PM CDT Release to patient->Immediate IS THE PATIENT REQUIRED TO BE FASTING FOR 8 HOURS?->No Yaquelin Jhaveri PAC CHEMISTRY ORDERABLES Final Result [facility] [address] [place] [address], * (ABNORMAL) COMPLETE BLOOD COUNT (CBC) WITH DIFF (08/30/2022 10:24 AM CDT) WBC 3.5(L) 4.0 - 10.0 10*3/uL [facility] HGB 13.0 11.2 - 15.7 g/dL [facility] HCT 38.5 34.1 - 44.9 % [facility] PLT 247 163 - 369 10*3/uL [facility] MPV 9.7 9.4 - 12.4 fL [facility] RBC 4.22 3.93 - 5.22 10*6/uL [facility] MCV 91 79 - 95 fL [facility] MCH 30.8 25.6 - 32.2 pg [facility] MCHC 33.8 32.2 - 36.5 g/dL [facility] RDW 12.2 11.6 - 14.4 % [facility] Absolute Neutrophil Count 2,006 cells/uL [facility] Absolute Seg Count 2,006 1,440 - 6,600 cells/uL [facility] Absolute Lymph Count 1,162 760 - 4,000 cells/uL [facility] Absolute Barry Count 282 160 - 1,200 cells/uL [facility] Absolute Eos Count 70 0 - 300 cells/uL [facility] Segmented Neutrophils 57 36 - 66 % [facility] Lymphocytes 33 19 - 40 % [facility] Monocytes 8 4 - 12 % [facility] Eosinophils 2 0 - 3 % [facility] WBC Estimate Low [facility] Platelet Estimate Normal [facility] RBC Morphology Normal [facility] Blood 08/30/2022 10:2 4 AM CDT Narrative [facility] - 08/30/2022 2:26 PM CDT Release to patient->Immediate Yaquelin Jhaveri PAC HEMATOLOGY ORDERABLES Mary iverson Result [facility] [address] [place] [address], * VITAMIN D, 25 HYDROXY TOTAL (06/07/2022 1:11 PM CDT) 25() Vitamin D, Total 34.2 30.0 - 100.0 ng/mL [facility] Comment: The Clinical Guidelines Subcommittee of the Endocrine Society Task Force established the guidelines below for recommended serum 25(OH) vitamin D levels. ??Other clinical reference citations may show different values. Deficient ? <20 ? Insufficient ? 20 to <30 ? Sufficient ? 30 to 100 ? Upper Safety Limit ?>100 Blood 06/07/2022 1:11 PM CDT Narrative [facility] - 06/08/2022 2:59 PM CDT Release to patient->Immediate Yaquelin Jhaveri PAC CHEMISTRY ORDERABLES Final Result Performing Organization Address [facility] de Phone Number [facility] [address] [place] [address], * VITAMIN B12 (06/07/2022 1:11 PM CDT) Vitamin B12 296 180 - 914 pg/mL [facility] Blood 06/07/2022 1:[address] [facility] - 06/08/2022 3:13 PM CDT Release to patient->Immediate Yaquelin Jhaveri PAC CHEMISTRY ORDERABLES Final Result Performing Organization Address [facility] de Phone Number [facility] [address] [place] [address], [place] [phone] * FERRITIN (06/07/2022 1:11 PM CDT) Ferritin 44 11 - 307 ng/mL [facility] Blood 06/07/2022 1:[address] [facility] - 06/08/2022 3:06 PM CDT Release to patient->Immediate Yaquelin Jhaveri PAC CHEMISTRY ORDERABLES Final Result Performing Organization Address [facility] Co de Phone Number [facility] [address] [place] [address], * IRON W/ IRON BINDING CAPACITY [place] (06/07/2022 1:11 PM CDT) IRON 86 50 - 212 ug/dL [facility] UIBC 222 155 - 355 ug/dL [facility] TIBC 308 261 - 478 ug/dl [facility] % Saturation 28 20 - 50 % [facility] Blood 06/07/2022 1:11 PM CDT Narrative [facility] - 06/07/2022 2:12 PM CDT Release to patient->Immediate us Yaquelin Jhaveri PAC LAB SEND OUTS Final Resu lt Performing Organization Address City/[facility]/ZIP Co de Phone Number [facility] [address] [address], [place] [phone] * (ABNORMAL) LACTATE DEHYDROGENASE (LD) (06/07/2022 1:11 PM CDT) LDH 119(L) 140 - 271 U/L [facility] Blood 06/07/2022 1:[address] [facility] - 06/07/2022 2:12 PM CDT Release to patient->Immediate us Yaquelin Jhaveri PAC CHEMISTRY ORDERABLES Final Result Performing Organization Address City/[facility]/ZIP Co de Phone Number [facility] Care [address] [address], [place] [phone] * CMP (COMPREHENSIVE METABOLIC PANEL) (06/07/2022 1:11 PM CDT) Glucose 90 70 - 105 mg/dL [facility] Blood Urea Nitrogen 12 7 - 25 mg/dL [facility] Creatinine 0.9 0.6 - 1.2 mg/dL [facility] Sodium 140 136 - 145 mEq/L [facility] Potassium 3.7 3.5 - 5.1 mEq/L [facility] [place] Chloride 102 98 - 107 mEq/L [facility] Bicarbonate 29 21 - 31 mEq/L [facility] Total Bilirubin 0.5 0.3 - 1.0 mg/dL [facility] Alk. Phosphatase 38 34 - 104 U/L [facility] Aspartate Aminotransferase 19 13 - 39 U/L [facility] Alanine Aminotransferase 13 7 - 52 U/L [facility] Total Protein 7.4 6.4 - 8.9 g/dL [facility] Albumin 4.7 3.5 - 5.7 g/dL [facility] Calcium 10.0 8.6 - 10.3 mg/dL [facility] Anion Gap 12.7 7.0 - 15.0 mEq/L [facility] Globulin 2.7 2.0 - 3.5 g/dL [facility] EGFR 85 >60 ml/min/1. 73m2 [facility] Comment: This eGFR is calculated using 2020 CKD-EPI Creatinine equation without race modifier based on the NKF-ASN task force recommendations Blood 06/07/2022 1:11 PM CDT Narrative [facility] - 06/07/2022 2:12 PM CDT Release to patient->Immediate IS THE PATIENT REQUIRED TO BE FASTING FOR 8 HOURS?->No Yaquelin Jhaveri PAC CHEMISTRY ORDERABLES Final Result [facility] [address] [id number], * (ABNORMAL) COMPLETE BLOOD COUNT (CBC) WITH DIFF (06/07/2022 1:11 PM CDT) WBC 8.1 4.0 - 10.0 10*3/uL [facility] HGB 13.6 11.2 - 15.7 g/dL [facility] HCT 39.1 34.1 - 44.9 % [facility] PLT 277 163 - 369 10*3/uL [facility] MPV 9.7 9.4 - 12.4 fL [facility] RBC 4.40 3.93 - 5.22 10*6/uL [facility] MCV 89 79 - 95 fL [facility] MCH 30.9 25.6 - 32.2 pg [facility] MCHC 34.8 32.2 - 36.5 g/dL [facility] RDW 12.6 11.6 - 14.4 % [facility] Absolute Neutrophil Count 5,810 cells/uL [facility] Absolute Seg Count 5,810 1,440 - 6,600 cells/uL [facility] Absolute Lymph Count 1,533 760 - 4,000 cells/uL [facility] Absolute Barry Count 404 160 - 1,200 cells/uL [facility] Absolute Eos Count 323(H) 0 - 300 cells/uL [facility] Segmented Neutrophils 72(H) 36 - 66 % [facility] Lymphocytes 19 19 - 40 % [facility] Monocytes 5 4 - 12 % [facility] E [facility] Eosinophils 4(H) 0 - 3 % [facility] WBC Estimate Normal [facility] Platelet Estimate Normal [facility] RBC Morphology Normal [facility] Blood 06/07/2022 1:11 PM CDT Narrative [facility] - 06/07/2022 2:12 PM CDT Release to patient->Immediate Yaquelin Jhaveri PAC HEMATOLOGY ORDERABLES Mary l Result [facility] [address] [place] [address], * C-REACTIVE PROTEIN (CRP) QUANT (06/06/2022 8:47 AM CDT) CRP <5.0 <5.0 mg/L [facility] Blood 06/06/2022 8:47 AM CDT Narrative [facility] - 06/08/2022 2:37 PM CDT Release to patient->Immediate Yaquelin Jhaveri PAC CHEMISTRY ORDERABLES Final Result [facility] [place] [address], [place] [phone] * ERYTHROCYTE SEDIMENTATION RATE (ESR) (06/06/2022 8:47 AM CDT) Erythrocyte Sedimentation Rate 5 0 - 30 mm/hr [facility] Blood 06/06/2022 8:47 AM CDT Narrative [facility] - 06/06/2022 10:25 AM CDT Release to patient->Immediate Yaquelin Jhaveri PAC HEMATOLOGY ORDERABLES Mary l Result [facility] [address] [place] [address], [place] [phone] documented in this encounter Visit Diagnoses Diagnosis [...] type documented in this encounter Care Teams Lpn Rn Hospice Relationship Specialty Start Date End Date Jacquie Fair, ARTIFICIAL INSEMINATOR, STAPLE FIBER WASHER [address] [facility], [address] [place] [address] PCP - General Advanced Practice Nurse 07/11/21 documented as of this encounter
--- OUTSIDE RECORDS SUMMARY | 2024-02-27 10:17 | XMS_ITS | Encounter Summary ---
Author Organization [employer] Care Team Providers Care Dewaxer Name Role Phone Jacquie Fair APRN, CNP [...] on filedocumented in this encounter Care Teams Dewaxer Relationship Specialty Start Date End Date Jacquie Fair, AIRCRAFT BODY REPAIRER, BLEACHING MACHINE OPERATOR [address] [facility], [address] [place] [address] PCP - General Advanced Practice Nurse 07/11/21 documented as of this encounter
--- OUTSIDE RECORDS SUMMARY | 2024-02-27 10:17 | XMS_ITS | Encounter Summary ---
Author Organization [facility] Address [address] [place] [address] Phone Care Team Providers Care Fish Grader Name Role Phone Jacquie Fair APRN, CNP Primary Care Provid er Encounter Details Date Type Department Care Team (Late st Contact Info) Description 01/14/2024 2:25 PM SAP BPC ARCHITECT Lab [facility] [address] [address] Lab, Cc [facility] Iron deficiency anemia, unspecified iron deficiency anemia [...] things Not at all 01/14/2024 2:43 PM SAP BPC ARCHITECT Seble Zimmer CMA Feeling down, depressed, or hopeless Not at all 01/14/2024 2:43 PM SAP BPC ARCHITECT Seble Zimmer CMA * Over the past 2 weeks, how often have you been bothered by any of the following problems? Question Answer Date of Assessment Author Patient Health Questionnaire -2 Score 0 01/14/2024 2:43 PM SAP BPC ARCHITECT Seble Zimmer CMA documented as of this encounter Plan of Treatment Not on file documented as of this encounter Procedures Procedure Name Priority Date/Time Associated Diagnosis Comments IRON W/ IRON BINDING CAPACITY [place] Routine 01/14/2024 2:40 PM SAP BPC ARCHITECT Iron deficiency anemia, unspecified iron deficiency anemia type CBC WITH AUTO DIFF [place] Routine 01/14/2024 2:40 PM SAP BPC ARCHITECT FERRITIN Routine 01/14/2024 2:40 PM SAP BPC ARCHITECT Iron deficiency anemia, unspecified iron deficiency anemia type CMP (COMPREHENSIVE METABOLIC PANEL) Routine 01/14/2024 2:40 PM SAP BPC ARCHITECT Iron deficiency anemia, unspecified iron deficiency anemia type documented in this encounter Results * (ABNORMAL) CBC WITH AUTO DIFF [place] (01/14/2024 2:40 PM SAP BPC ARCHITECT) WBC 5.6 4.0 - 10.0 10*3/uL [facility] HGB 13.6 11.2 - 15.7 g/dL [facility] HCT 40.2 34.1 - 44.9 % [facility] PLT 268 163 - 369 10*3/uL [facility] MPV 9.5 9.4 - 12.4 fL [facility] RBC 4.57 3.93 - 5.22 10*6/uL [facility] MCV 88 79 - 95 fL [facility] MCH 29.8 25.6 - 32.2 pg [facility] MCHC 33.8 32.2 - 36.5 g/dL [facility] RDW 12.0 11.6 - 14.4 % [facility] Neutrophils % 52.0 36.0 - 66.0 % [facility] Lymphocytes % 39.2 19.0 - 40.0 % [facility] Monocytes % 5.7 4.1 - 12.1 % [facility] Eosinophils % 1.8 0.0 - 3.5 % [facility] Basophils % 1.1(H) 0.0 - 1.0 % [facility] Absolute Neutrophils 2.9 1.4 - 6.6 10*3/uL [facility] Absolute Lymphocytes 2.2 0.8 - 4.0 10*3/uL [facility] Absolute Monocytes 0.3 0.2 - 1.2 10*3/uL [facility] Absolute Eosinophils 0.1 0.0 - 0.4 10*3/uL [facility] Absolute Basophils 0.1 0.0 - 0.1 10*3/uL [facility] 01/14/2024 2:40 PM SAP BPC ARCHITECT us Reina Macedo APRN, CNP LAB SEND OUTS Fin al Result [facility] [address] [place] [address], [place] [phone] * FERRITIN (01/14/2024 2:40 PM SAP BPC ARCHITECT) Ferritin 25 11 - 307 ng/mL [facility] Blood 01/14/2024 2:40 PM SAP BPC ARCHITECT Narrative [facility] - 01/15/2024 2:07 PM SAP BPC ARCHITECT Release to patient->Immediate us Reina Macedo APRN, CNP CHEMISTRY ORDERABLE S Final Result [facility] [address] [place] [address], [place] [phone] * IRON W/ IRON BINDING CAPACITY [place] (01/14/2024 2:40 PM SAP BPC ARCHITECT) IRON 111 50 - 212 ug/dL [facility] UIBC 194 155 - 355 ug/dL [facility] TIBC 305 261 - 478 ug/dl [facility] % Saturation 36 20 - 50 % [facility] 01/14/2024 2:40 PM SAP BPC ARCHITECT Narrative [facility] - 01/14/2024 3:35 PM SAP BPC ARCHITECT Release to patient->Immediate Reina Macedo APRN, CNP LAB SEND OUTS Fin al Result [facility] [place] [address], * (ABNORMAL) CMP (COMPREHENSIVE METABOLIC PANEL) (01/14/2024 2:40 PM SAP BPC ARCHITECT) Glucose 112(H) 70 - 105 mg/dL [facility] Blood Urea Nitrogen 13 7 - 25 mg/dL [facility] Creatinine 0.9 0.6 - 1.2 mg/dL [facility] Sodium 141 136 - 145 mEq/L [facility] Potassium 3.9 3.5 - 5.1 mEq/L [facility] Chloride 104 98 - 107 mEq/L [facility] Bicarbonate 29 21 - 31 mEq/L [facility] Total Bilirubin 0.4 0.3 - 1.0 mg/dL [facility] Alk. Phosphatase 32(L) 34 - 104 U/L [facility] Aspartate Aminotransferase 16 13 - 39 U/L [facility] Alanine Aminotransferase 13 7 - 52 U/L [facility] Total Protein 6.4 6.4 - 8.9 g/dL [facility] Albumin 4.4 3.5 - 5.7 g/dL [facility] Calcium 9.3 8.6 - 10.3 mg/dL [facility] Anion Gap 11.9 7.0 - 15.0 mEq/L [facility] Globulin 2.0 2.0 - 3.5 g/dL [facility] EGFR 84 >60 ml/min/1. 73m2 [facility] Comment: This eGFR is calculated using 2020 CKD-EPI Creatinine equation without race modifier based on the NKF-ASN task force recommendations Blood 01/14/2024 2:40 PM SAP BPC ARCHITECT Narrative [facility] - 01/14/2024 3:35 PM SAP BPC ARCHITECT Release to patient->Immediate IS THE PATIENT REQUIRED TO BE FASTING FOR 8 HOURS?->No Reina Macedo APRN, CNP CHEMISTRY ORDERABLE S Final Result [facility] [address] [place] [address], documented in this encounter Visit Diagnoses Diagnosis Iron deficiency anemia, unspecified iron deficiency anemia type documented in this encounter Care Teams Fish Grader Relationship Specialty Start Date End Date Jacquie Fair APRN, BUSINESS MANAGEMENT CONSULTANT [address], [address] [place] [id number] PCP - General Advanced Practice Nurse 07/11/21 documented as of this encounter
--- OUTSIDE RECORDS SUMMARY | 2024-02-27 10:17 | XMS_ITS | Encounter Summary ---
Author Organization [email or web address] Care Team Providers Care Crewman Armoured Personnel Carrier [id number] Name Role Phone Jacquie Fair APRN, CNP [...] on filedocumented in this encounter Care Teams Crewman Armoured Personnel Carrier [id number] Relationship Specialty Start Date End Date Jacquie Fair, ASSET ACCOUNTANT, DIRECTOR OF ENTERPRISE STRATEGY [address], [address] [place] [address] PCP - General Advanced Practice Nurse 07/11/21 documented as of this encounter
--- OUTSIDE RECORDS SUMMARY | 2024-02-27 10:17 | XMS_ITS | Encounter Summary ---
Author Organization [employer] Care Team Providers Care Behavior Specialist Name Role Phone Jacquie Fair APRN, CNP [...] on filedocumented in this encounter Care Teams Behavior Specialist Relationship Specialty Start Date End Date Jacquie Fair APRN, CNP [address] [facility], [address] [place] [address] PCP - General Advanced Practice Nurse 07/11/21 documented as of this encounter
--- OUTSIDE RECORDS SUMMARY | 2024-02-27 10:17 | XMS_ITS | Encounter Summary ---
Author Organization [facility] Address [address] [place] [address] Phone Care Team Providers Care Go Go Dancer Name Role Phone Jacquie Fair APRN, CNP Primary Care Provid er Encounter Details Date Type Department Care Team (Late st Contact Info) Description 08/30/2022 11:00 AM CDT Lab [facility] [address] [address] Lab, Cc [facility] Iron deficiency anemia, unspecified iron deficiency anemia [...] Date/Time Associated Diagnosis Comments ANCA (VASCULITIS) PROFILE, [place] [id number] Routine 07/05/2023 3:10 PM CDT SJOGRENS PANEL, [...] SJOGREN'S ANTIS-A <0.2 0.0 - 0.9 [facility] SJOGREN'S ANTIS-B <0.2 0.0 - 0.9 [facility] 07/05/2023 3:10 PM CDT [facility] - 07/08/2023 1:08 PM CDT TESTING PERFORMED AT: [] [facility], [address] [place] [address], [place], [address], PHONE: [phone], BEE PRODUCER: ERIC VELASQUEZ, PHD us Linda Gr MD IMMUNOLOGY ORDERABLES Fi nal Result [facility] [place] [address], * (ABNORMAL) ANTINUCLEAR ANTIBODY (MEKA) TITER (07/05/2023 3:10 PM CDT) Antinuclear Antibodies, IFA POSITIVE(A ) [facility] Comment: ?NEGATIVE ?? <1:80 ?BORDERLINE ??1:80 ?POSITIVE ?? >1:80 Speckled Pattern 1:320(H) CAN [facility] Comment: DENSE FINE SPECKLED PATTERN IS NOTED. THIS PATTERN SUGGESTS THE PRESENCE OF DFS70 ANTIBODY WHICH HAS A LOW PREVALENCE IN SYSTEMIC AUTOIMMUNE RHEUMATIC DISEASES. ICAP NOMENCLATURE: AC-2,4,5,29 NOTE COMMENT [facility] SPECIAL[facility] Comment: PATTERN ?POTENTIAL DISEASE ASSOCIATION ?? HOMOGENEOUS ?SYSTEMIC LUPUS ERYTHEMATOSUS, DRUG INDUCED ? SYSTEMIC LUPUS ERYTHEMATOSUS, CHRONIC ? AUTOIMMUNE HEPATITIS, JUVENILE IDIOPATHIC ? ARTHRITIS ?? SPECKLED ? SJOGREN SYNDROME, SYSTEMIC LUPUS ? ERYTHEMATOSUS, SUBACUTE CUTANEOUS LUPUS, ? LUPUS, CONGENITAL HEART BLOCK, ? MIXED CONNECTIVE TISSUE DISEASE, ? SCLERODERMA-DIFFUSE, SCLERODERMA-AUTOIMMUNE ? MYOSITIS OVERLAP SYNDROME, SYSTEMIC LUPUS ? [id number]-DYOCABOMAHI-[id number] ? MYOSITIS OVERLAP SYNDROME, SYSTEMIC ? AUTOIMMUNE [...] ?? 07/05/2023 3:10 PM CDT Narrative [facility] - 07/08/2023 8:07 AM CDT TESTING PERFORMED AT: [CB] [facility], [address] [place] [address], [address], PHONE: [phone], BEE PRODUCER: ERIC VELASQUEZ, PHD us Linda Gr MD IMMUNOLOGY ORDERABLES Fi nal Result [facility] [place] [address], * ANCA (VASCULITIS) [place], [place] [id number] (07/05/2023 3:10 PM CDT) ANTI-MPO ANTIBODIES <0.2 0.0 - 0.9 UNITS [facility] ANTI-PR3 ANTIBODIES <0.2 0.0 - 0.9 UNITS [facility] CYTOPLASMIC (C-ANCA) <1:20 NEG:<1:20 TITER [facility] PERINUCLEAR (P-ANCA) <1:20 NEG:<1:20 TITER [facility] Comment: THE PRESENCE OF POSITIVE FLUORESCENCE EXHIBITING P-ANCA OR C-ANCA PATTERNS ALONE IS NOT SPECIFIC FOR THE DIAGNOSIS OF DINORA'S GRANULOMATOSIS (WG) OR MICROSCOPIC POLYANGIITIS. DECISIONS ABOUT TREATMENT SHOULD NOT BE BASED SOLELY ON ANCA IFA RESULTS. ??THE INTERNATIONAL ANCA GROUP CONSENSUS RECOMMENDS FOLLOW UP TESTING OF POSITIVE SERA WITH BOTH AK- 3 AND MPO-ANCA ENZYME IMMUNOASSAYS. MANY 5% SERUM SAMPLES ARE POSITIVE ONLY BY EIA. REF. AM J CLIN PATHOL 1999;111:[id number]. ATYPICAL PANCA <1:20 NEG:<1:20 TITER [facility] Comment: THE ATYPICAL PANCA PATTERN HAS BEEN OBSERVED IN A SIGNIFICANT PERCENTAGE OF PATIENTS WITH ULCERATIVE COLITIS, PRIMARY SCLEROSING CHOLANGITIS AND AUTOIMMUNE HEPATITIS. 07/05/2023 3:10 PM CDT Narrative [facility] - 07/08/2023 8:06 PM CDT TESTING PERFORMED AT: [BN] [facility] [address], [address], PHONE: [phone], BEE PRODUCER: LIZ CINTRON MD TESTING PERFORMED AT: [CB] [facility] [address], [address], PHONE: [phone], BEE PRODUCER: ERIC VELASQUEZ, PHD us Linda Gr MD LAB SEND OUTS Final Re sult [facility] [place] [address], [place] [phone] * (ABNORMAL) COMPLETE BLOOD COUNT (CBC) WITH DIFF (08/30/2022 10:24 AM CDT) WBC 3.5(L) 4.0 - 10.0 10*3/uL [facility] HGB 13.0 11.2 - 15.7 g/dL [facility] HCT 38.5 34.1 - 44.9 % [facility] PLT 247 163 - 369 10*3/uL [facility] MPV 9.7 9.4 - 12.4 fL [facility] RBC 4.22 3.93 - 5.22 10*6/uL [facility] MCV 91 79 - 95 fL [facility] MCH 30.8 25.6 - 32.2 pg [facility] MCHC 33.8 32.2 - 36.5 g/dL [facility] RDW 12.2 11.6 - 14.4 % [facility] Absolute Neutrophil Count 2,006 cells/uL [facility] Absolute Seg Count 2,006 1,440 - 6,600 cells/uL [facility] Absolute Lymph Count 1,162 760 - 4,000 cells/uL [facility] Absolute [place] Count 282 160 - 1,200 cells/uL [facility] Absolute Eos Count 70 0 - 300 cells/uL [facility] Segmented Neutrophils 57 36 - 66 % [facility] Lymphocytes 33 19 - 40 % [facility] Monocytes 8 4 - 12 % [facility] Eosinophils 2 0 - 3 % [facility] [place] WBC Estimate Low [facility] Platelet Estimate Normal [facility] RBC Morphology Normal [facility] Blood 08/30/2022 10:2 4 AM CDT Narrative [facility] - 08/30/2022 2:26 PM CDT Release to patient->Immediate Yaquelin Barker PAC HEMATOLOGY ORDERABLES Mary iverson Result [facility] [address] [address], * (ABNORMAL) CMP (COMPREHENSIVE METABOLIC PANEL) (08/30/2022 10:24 AM CDT) Glucose 85 70 - 105 mg/dL [facility] Blood Urea Nitrogen 12 7 - 25 mg/dL [facility] Creatinine 0.8 0.6 - 1.2 mg/dL [facility] Sodium 142 136 - 145 mEq/L [facility] Potassium 3.9 3.5 - 5.1 mEq/L [facility] Chloride 107 98 - 107 mEq/L [facility] Bicarbonate 26 21 - 31 mEq/L [facility] Total Bilirubin 0.4 0.3 - 1.0 mg/dL [facility] Alk. Phosphatase 32(L) 34 - 104 U/L [facility] Aspartate Aminotransferase 16 13 - 39 U/L [facility] Alanine Aminotransferase 11 7 - 52 U/L [facility] Total Protein 6.7 6.4 - 8.9 g/dL [facility] Albumin 4.6 3.5 - 5.7 g/dL [facility] Calcium 9.5 8.6 - 10.3 mg/dL [facility] Anion Gap 12.9 7.0 - 15.0 mEq/L [facility] Globulin 2.1 2.0 - 3.5 g/dL [facility] EGFR 97 >60 ml/min/1. 73m2 [facility] Comment: This eGFR is calculated using 2020 CKD-EPI Creatinine equation without race modifier based on the NKF-ASN task force recommendations Blood 08/30/2022 10:2 4 AM CDT Narrative [facility] - 08/30/2022 12:48 PM CDT Release to patient->Immediate IS THE PATIENT REQUIRED TO BE FASTING FOR 8 HOURS?->No Yaquelin Barker PAC CHEMISTRY ORDERABLES Final Result [facility] [address] [place] [address], * (ABNORMAL) LACTATE DEHYDROGENASE (LD) (08/30/2022 10:24 AM CDT) LDH 103(L) 140 - 271 U/L [facility] Blood 08/30/2022 10:2 4 AM CDT [facility] - 08/30/2022 12:48 PM CDT Release to patient->Immediate us Yaquelin Barker PAC CHEMISTRY ORDERABLES Final Result [facility] Cancer Care [facility] [address] [place] [address], * (ABNORMAL) IRON W/ IRON BINDING CAPACITY [place] (08/30/2022 10:24 AM CDT) IRON 60 50 - 212 ug/dL [facility] UIBC 250 155 - 355 ug/dL [facility] TIBC 310 261 - 478 ug/dl [facility] % Saturation 19(L) 20 - 50 % [facility] Blood 08/30/2022 10:2 4 AM CDT [facility] - 08/30/2022 12:48 PM CDT Release to patient->Immediate us Yaquelin Barker PAC LAB SEND OUTS Final Resu lt Performing Organization Address [facility]/ZIP Co de Phone Number [facility] Cancer Care [facility] [address] [place] [address], [place] [phone] * FERRITIN (08/30/2022 10:24 AM CDT) Ferritin 31 11 - 307 ng/mL [facility] Blood 08/30/2022 10:2 4 AM CDT [facility] - 08/31/2022 2:03 PM CDT Release to patient->Immediate us Yaquelin Barker PAC CHEMISTRY ORDERABLES Final Result [facility] [place] [address], * FOLIC ACID (FOLATE) (08/30/2022 10:24 AM CDT) Folate >20.00 >=5.90 ng/mL [facility] Blood 08/30/2022 10:2 4 AM CDT Narrative [facility] - 08/31/2022 2:10 PM CDT Release to patient->Immediate IS THE PATIENT REQUIRED TO BE FASTING FOR 12 HOURS?->No Yaquelin Barker PAC CHEMISTRY ORDERABLES Final Result [facility]PER[facility] [place] [address], documented in this encounter Visit Diagnoses Diagnosis Iron deficiency anemia, unspecified iron deficiency anemia type documented in this encounter Care Teams Go Go Dancer Relationship Specialty Start Date End Date Jacquie Fair, YOKE PRESSER, VENEER CLIPPER HELPER [address] [facility], [address] [place] [address] PCP - General Advanced Practice Nurse 07/11/21 documented as of this encounter
--- OUTSIDE RECORDS SUMMARY | 2024-02-27 10:17 | XMS_ITS | Encounter Summary ---
Author Organization [facility] Address [address] [place] [address] Phone Care Team Providers Care Staple Cutter Name Role Phone Jacquie Fair APRN, CNP Primary Care Provid er Encounter Details Date Type Department Care Team (Late st Contact Info) Description 06/13/2022 Telephone [facility] [address] [address] Yaquelin Barker PAC Social History [...] on filedocumented in this encounter Care Teams Staple Cutter Relationship Specialty Start Date End Date Jacquie Fair APRN, INTERVENTION MANAGER [address] [facility] [place] [address] PCP - General Advanced Practice Nurse 07/11/21 documented as of this encounter
--- OUTSIDE RECORDS SUMMARY | 2024-02-27 10:17 | XMS_ITS | Encounter Summary ---
Author Organization [employer] Care Team Providers Care Banquet Pilot Name Role Phone Jacquie Fair APRN, CNP [...] Coronavirus/COVID-19? No / Unsure 04/17/2022 8:05 AM HEAD BANQUET WAITRESS documented as of this encounter Plan of Treatment Not on file documented as of this encounter Visit Diagnoses Not on filedocumented in this encounter Care Teams Banquet Pilot Relationship Specialty Start Date End Date Jacquie Fair APRN, CNP [address] [facility], [address] [place] [address] PCP - General Advanced Practice Nurse 07/11/21 documented as of this encounter
--- OUTSIDE RECORDS SUMMARY | 2024-02-27 10:17 | XMS_ITS | Encounter Summary ---
Author Organization [employer] Care Team Providers Care Dean Of Men Name Role Phone Jacquie Fair APRN, CNP [...] things Not at all 01/14/2024 2:43 PM AIR AND MISSILE DEFENSE CREWMEMBER Seble Zimmer CMA Feeling down, depressed, or hopeless Not at all 01/14/2024 2:43 PM AIR AND MISSILE DEFENSE CREWMEMBER Seble Zimmer CMA * Over the past [...] on filedocumented in this encounter Care Teams Dean Of Men Relationship Specialty Start Date End Date Jacquie Fair APRN, CNP [address] [facility], [address] [place] [address] PCP - General Advanced Practice Nurse 07/11/21 documented as of this encounter
--- OUTSIDE RECORDS SUMMARY | 2024-02-27 10:17 | XMS_ITS | Encounter Summary ---
Author Organization [employer] Care Team Providers Care Vp Business Development Name Role Phone Jacquie Fair APRN, CNP [...] on filedocumented in this encounter Care Teams Vp Business Development Relationship Specialty Start Date End Date Jacquie Fair APRN, CNP [address] [facility], [address] [place] [address] PCP - General Advanced Practice Nurse 07/11/21 documented as of this encounter
--- OUTSIDE RECORDS SUMMARY | 2024-02-27 10:17 | XMS_ITS | Encounter Summary ---
Author Organization [facility] Address [address] [place] [address] Phone Care Team Providers Care Surface Hydrologist Name Role Phone Jacquie Fair APRN, CNP Primary Care Provid er Encounter Details Date Type Department Care Team (Late st Contact Info) Description 04/17/2022 8:00 AM FOXING CLOSER Lab [facility] [address] [address] Lab, Cc [facility] Iron deficiency anemia, unspecified iron deficiency [...] Coronavirus/COVID-19? No / Unsure 04/17/2022 8:05 AM FOXING CLOSER documented as of this encounter Plan of Treatment Not on file documented as of this encounter Procedures Procedure Name Priority Date/Time Associated Diagnosis Comments IRON W/ IRON BINDING CAPACITY [place] Routine 04/17/2022 8:16 AM FOXING CLOSER Iron deficiency anemia, unspecified iron deficiency anemia type CBC WITH AUTO DIFF [place] Routine 04/17/2022 8:16 AM FOXING CLOSER FERRITIN Routine 04/17/2022 8:16 AM FOXING CLOSER Iron deficiency anemia, unspecified iron deficiency anemia type CMP (COMPREHENSIVE METABOLIC PANEL) Routine 04/17/2022 8:16 AM FOXING CLOSER Iron deficiency anemia, unspecified iron deficiency anemia type documented in this encounter Results * CBC WITH AUTO DIFF [place] (04/17/2022 8:16 AM FOXING CLOSER) WBC 4.2 4.0 - 10.0 10*3/uL [facility] HGB 12.3 11.2 - 15.7 g/dL [facility] HCT 35.6 34.1 - 44.9 % [facility] PLT 231 163 - 369 10*3/uL [facility] MPV 9.7 9.4 - 12.4 fL [facility] RBC 4.07 3.93 - 5.22 10*6/uL [facility] MCV 88 79 - 95 fL [facility] MCH 30.2 25.6 - 32.2 pg [facility] MCHC 34.6 32.2 - 36.5 g/dL [facility] RDW 14.4 11.6 - 14.4 % [facility] Neutrophils % 56.2 36.0 - 66.0 % [facility] [place] Lymphocytes % 35.2 19.0 - 40.0 % [facility] Monocytes % 4.8 4.1 - 12.1 % [facility] Eosinophils % 2.9 0.0 - 3.5 % [facility] Basophils % 0.7 0.0 - 1.0 % [facility] Absolute Neutrophils 2.4 1.4 - 6.6 10*3/uL [facility] Absolute Lymphocytes 1.5 0.8 - 4.0 10*3/uL [facility] Absolute Monocytes 0.2 0.2 - 1.2 10*3/uL [facility] Absolute Eosinophils 0.1 0.0 - 0.4 10*3/uL [facility] Absolute Basophils 0.0 0.0 - 0.1 10*3/uL [facility] 04/17/2022 8:16 AM FOXING CLOSER Josh Akhtar DO LAB SEND OUTS Final Result [facility] [address] [place] [address], * (ABNORMAL) CMP (COMPREHENSIVE METABOLIC PANEL) (04/17/2022 8:16 AM FOXING CLOSER) Glucose 93 70 - 105 mg/dL [facility] Blood Urea Nitrogen 14 7 - 25 mg/dL [facility] Creatinine 0.8 0.6 - 1.2 mg/dL [facility] Sodium 140 136 - 145 mEq/L [facility] Potassium 3.6 3.5 - 5.1 mEq/L [facility] Chloride 106 98 - 107 mEq/L [facility] Bicarbonate 27 21 - 31 mEq/L [facility] Total Bilirubin 0.4 0.3 - 1.0 mg/dL [facility] Alk. Phosphatase 27(L) 34 - 104 U/L [facility] Aspartate Aminotransferase 15 13 - 39 U/L [facility] Alanine Aminotransferase 8 7 - 52 U/L [facility] Total Protein 6.3(L) 6.4 - 8.9 g/dL [facility] Albumin 4.3 3.5 - 5.7 g/dL [facility] Calcium 9.2 8.6 - 10.3 mg/dL [facility] Anion Gap 10.6 7.0 - 15.0 mEq/L [facility] Globulin 2.0 2.0 - 3.5 g/dL [facility] EGFR 97 >60 ml/min/1. 73m2 [facility] Comment: This eGFR is calculated using 2020 CKD-EPI Creatinine equation without race modifier based on the NKF-ASN task force recommendations Blood 04/17/2022 8:16 AM FOXING CLOSER Narrative [facility] - 04/17/2022 9:21 AM FOXING CLOSER Release to patient->Immediate IS THE PATIENT REQUIRED TO BE FASTING FOR 8 HOURS?->No us Josh Akhtar DO CHEMISTRY ORDERABLES Final Res ult Performing Organization Address [facility]/ZIP Co de Phone Number [facility] [address] [place] [address], [place] [phone] * FERRITIN (04/17/2022 8:16 AM FOXING CLOSER) Ferritin 88 11 - 307 ng/mL [facility] POLICE INSPECTOR [facility] Blood 04/17/2022 8:16 AM FOXING CLOSER [facility] - 04/17/2022 2:04 PM FOXING CLOSER Release to patient->Immediate us Josh Akhtar DO CHEMISTRY ORDERABLES Final Res ult Performing Organization Address [facility] Co de Phone Number CANCER POLICE INSPECTOR [facility] [address] [place] [address], [place] [phone] * IRON W/ IRON BINDING CAPACITY [place] (04/17/2022 8:16 AM FOXING CLOSER) IRON 99 50 - 212 ug/dL [facility] UIBC 166 155 - 355 ug/dL [facility] TIBC 265 261 - 478 ug/dl [facility] % Saturation 37 20 - 50 % [facility] 04/17/2022 8:16 AM FOXING CLOSER [facility] - 04/17/2022 9:21 AM FOXING CLOSER Release to patient->Immediate us Josh Akhtar DO LAB SEND OUTS Final Result Performing Organization Address City/[facility]/ZIP Co de Phone Number [facility] [address] [place] [address], [place] [phone] documented in this encounter Visit Diagnoses Diagnosis Iron deficiency anemia, unspecified iron deficiency anemia type documented in this encounter Care Teams Surface Hydrologist Relationship Specialty Start Date End Date Jacquie Fair APRN, SEWER BUILDER [address] [facility], [address] [place] [address] PCP - General Advanced Practice Nurse 07/11/21 documented as of this encounter
--- OUTSIDE RECORDS SUMMARY | 2024-02-27 10:18 | XMS_ITS | Encounter Summary ---
Author Organization [employer] Care Team Providers Care Collarette Separator Name Role Phone Jacquie Fair APRN, CNP [...] Coronavirus/COVID-19? No / Unsure 01/25/2022 2:25 PM SPRING REPAIRER HELPER HAND documented as of this encounter Plan of Treatment Not on file documented as of this encounter Visit Diagnoses Not on filedocumented in this encounter Care Teams Collarette Separator Relationship Specialty Start Date End Date Jacquie Fair APRN, CNP [address] [facility], [address] [place] [address] PCP - General Advanced Practice Nurse 07/11/21 documented as of this encounter
--- OUTSIDE RECORDS SUMMARY | 2024-02-27 10:18 | XMS_ITS | Encounter Summary ---
Author Organization [facility] Address [address] [place] [address] Phone Care Team Providers Care Spool Worker Name Role Phone Jacquie Fair APRN, CNP Primary Care Provid er Encounter Details Date Type Department Care Team (Late st Contact Info) Description 10/17/2021 10:35 AM CDT Lab [facility] [address] [address] Lab, Cc [facility] Iron deficiency anemia, unspecified iron [...] 4.0 - 10.0 10*3/uL [facility] HGB 12.2 11.2 - 15.7 g/dL [facility] HCT 36.4 34.1 - 44.9 % [facility] PLT 279 163 - 369 10*3/uL [facility] MPV 9.6 9.4 - 12.4 fL [facility] RBC 4.24 3.93 - 5.22 10*6/uL [facility] MCV 86 79 - 95 fL [facility] MCH 28.8 25.6 - 32.2 pg [facility] MCHC 33.5 32.2 - 36.5 g/dL [facility] RDW 15.8(H) 11.6 - 14.4 % [facility] Absolute Neutrophil Count 1,896 cells/uL [facility] Absolute Seg Count 1,896 1,440 - 6,600 cells/uL [facility] Absolute Lymph Count 1,509 760 - 4,000 cells/uL [facility] Absolute Butler Count 232 160 - 1,200 cells/uL [facility] Absolute Eos Count 194 0 - 300 cells/uL [facility] Absolute Baso Count 39 0 - 100 cells/uL [facility] Segmented Neutrophils 49 36 - 66 % [facility] Lymphocytes 39 19 - 40 % [facility] Monocytes 6 4 - 12 % [facility] Eosinophils 5(H) 0 - 3 % [facility] Basophils 1 0 - 1 % [facility] WBC Estimate Low [facility] Platelet Estimate Normal [facility] RBC Morphology Abnormal [facility] Anisocytosis 1+ [facility] Blood 10/17/2021 9:35 AM CDT Narrative [facility] - 10/17/2021 1:04 PM CDT Release to patient->Immediate Yaquelin Barker [facility] HEMATOLOGY ORDERABLES Mary iverson Result Performing Organization Address City/State/[facility] Co de Phone Number [facility] [address] [place] [address], * CMP (COMPREHENSIVE METABOLIC PANEL) (10/17/2021 9:35 AM CDT) Glucose 82 70 - 105 mg/dL [facility] Blood Urea Nitrogen 10 7 - 25 mg/dL [facility] Creatinine 0.7 0.6 - 1.2 mg/dL [facility] Sodium 139 136 - 145 mEq/L [facility] Potassium 3.9 3.5 - 5.1 mEq/L [facility] Chloride 104 98 - 107 mEq/L [facility] Bicarbonate 30 21 - 31 mEq/L [facility] Total Bilirubin 0.4 0.3 - 1.0 mg/dL [facility] Alk. Phosphatase 34 34 - 104 U/L [facility] Aspartate Aminotransferase 16 13 - 39 U/L [facility] Alanine Aminotransferase 10 7 - 52 U/L [facility] Total Protein 6.4 6.4 - 8.9 g/dL [facility] Albumin 4.3 3.5 - 5.7 g/dL [facility] Calcium 9.4 8.6 - 10.3 mg/dL [facility] Anion Gap 8.9 7.0 - 15.0 mEq/L [facility] Globulin 2.1 2.0 - 3.5 g/dL [facility] EGFR 115 >60 ml/min/1. 73m2 [facility] Comment: This eGFR is calculated using 2020 CKD-EPI Creatinine equation without race modifier based on the NKF-ASN task force recommendations Blood 10/17/2021 9:35 AM CDT Narrative [facility] - 10/17/2021 10:34 AM CDT IS THE PATIENT REQUIRED TO BE FASTING FOR 8 HOURS?->No Release to patient->Immediate Yaquelin Barker PAC CHEMISTRY ORDERABLES Final Result Performing Organization Address [facility] de Phone Number [facility] [place] [address], * IRON W/ IRON BINDING CAPACITY [place] (10/17/2021 9:35 AM CDT) IRON 75 50 - 212 ug/dL [facility] UIBC 216 155 - 355 ug/dL [facility] TIBC 291 261 - 478 ug/dl [facility] % Saturation 26 20 - 50 % [facility] Blood 10/17/2021 9:35 AM CDT [facility] - 10/17/2021 10:34 AM CDT Release to patient->Immediate Yaquelin Barker PAC LAB SEND OUTS Final Resu lt Performing Organization Address [facility] Co de Phone Number [facility] [place] [place] [address], * FERRITIN (10/17/2021 9:35 AM CDT) Ferritin 30 11 - 307 ng/mL [facility] Blood 10/17/2021 9:35 AM CDT [facility] CANCER REDUCING MACHINE OPERATOR [facility] - 10/18/2021 4:19 PM CDT Release to patient->Immediate us Yaquelin Barker PAC CHEMISTRY ORDERABLES Final Result Performing Organization Address City/[facility]/ZIP Co de Phone Number CANCER REDUCING MACHINE OPERATOR [facility] [address] [place] [address], [place] [phone] * VITAMIN B12 (10/17/2021 9:35 AM CDT) Vitamin B12 288 180 - 914 pg/mL CANC[facility] REDUCING MACHINE OPERATOR [facility] Blood 10/17/2021 9:35 AM CDT [facility] - 10/18/2021 4:21 PM CDT Release to patient->Immediate us Yaquelin Barker PAC CHEMISTRY ORDERABLES Final Result Performing Organization Address [facility]/ZIP Co de Phone Number CANCER REDUCING MACHINE OPERATOR [facility] [address] [place] [address], [place] [phone] * FOLIC ACID (FOLATE) (10/17/2021 9:35 AM CDT) Folate >20.00 >=5.90 ng/mL CANCER REDUCING MACHINE OPERATOR [facility] Blood 10/17/2021 9:35 AM CDT [facility] CANCER REDUCING MACHINE OPERATOR [facility] - 10/18/2021 4:21 PM CDT IS THE PATIENT REQUIRED TO BE FASTING FOR 12 HOURS?->No Release to patient->Immediate us Yaquelin Barker PAC CHEMISTRY ORDERABLES Final Result Performing Organization Address City/[facility]/ZIP Co de Phone Number CANCER REDUCING MACHINE OPERATOR [facility] [address] [address], [place] [phone] documented in this encounter Visit Diagnoses Diagnosis Iron deficiency anemia, unspecified iron deficiency anemia type Vitamin D deficiency Unspecified vitamin D deficiency documented in this encounter Care Teams Spool Worker Relationship Specialty Start Date End Date Jacquie Fair, SECURITY OPERATIONS MANAGER, CHOKE SETTER [address] [facility] [address], [address] [place] [address] PCP - General Advanced Practice Nurse 07/11/21 documented as of this encounter
--- OUTSIDE RECORDS SUMMARY | 2024-02-27 10:18 | XMS_ITS | Encounter Summary ---
Author Organization [employer] Care Team Providers Care Livestock Ranch Hand Name Role Phone Jacquie Fair APRN, CNP [...] Coronavirus/COVID-19? No / Unsure 01/16/2022 8:02 AM DIRECT CHILL CASTER documented as of this encounter Plan of Treatment Not on file documented as of this encounter Visit Diagnoses Not on filedocumented in this encounter Care Teams Livestock Ranch Hand Relationship Specialty Start Date End Date Jacquie Fair APRN, CNP [address] [facility] [facility], [address] [place] [address] PCP - General Advanced Practice Nurse 07/11/21 documented as of this encounter
--- OUTSIDE RECORDS SUMMARY | 2024-02-27 10:18 | XMS_ITS | Encounter Summary ---
Author Organization [employer] Care Team Providers Care Laboratory Helper Name Role Phone Jacquie Fair APRN, CNP [...] on filedocumented in this encounter Care Teams Laboratory Helper Relationship Specialty Start Date End Date Jacquie Fair APRN, CNP [address] [facility], [address] [place] [address] PCP - General Advanced Practice Nurse 07/11/21 documented as of this encounter
--- OUTSIDE RECORDS SUMMARY | 2024-02-27 10:18 | XMS_ITS | Encounter Summary ---
Author Organization [facility] Address [address] [place] [address] Phone Care Team Providers Care Turbine Room Attendant Name Role Phone Jacquie Fair APRN, CNP Primary Care Provid er Encounter Details Date Type Department Care Team (Late st Contact Info) Description 08/04/2021 Telephone [facility] [place] [address] [place] [address] Josh Akhtar, DO [address] [place] [address] Social History Tobacco Use Types [...] on filedocumented in this encounter Care Teams Turbine Room Attendant Relationship Specialty Start Date End Date Jacquie Fair, EXPANDING MACHINE OPERATOR, FISHING INSTRUCTOR [address], [address] [place] [address] PCP - General Advanced Practice Nurse 07/11/21 documented as of this encounter
--- OUTSIDE RECORDS SUMMARY | 2024-02-27 10:18 | XMS_ITS | Encounter Summary ---
Author Organization [employer] Care Team Providers Care Automobile Leasing Supervisor Name Role Phone Jacquie Fair APRN, CNP [...] on filedocumented in this encounter Care Teams Automobile Leasing Supervisor Relationship Specialty Start Date End Date Jacquie Fair APRN, CNP [address] [facility], [address] [place] [address] PCP - General Advanced Practice Nurse 07/11/21 documented as of this encounter
--- OUTSIDE RECORDS SUMMARY | 2024-02-27 10:18 | XMS_ITS | Encounter Summary ---
Author Organization [facility] Address [address] [place] [address] Phone Care Team Providers Care Military Equipment Specialist Name Role Phone Jacquie Fair APRN, CNP Primary Care Provid er Reason for Visit * Reason Comments Follow-up Encounter Details Date Type Department Care Team (Late st Contact Info) Description 09/12/2021 8:45 AM CDT Office Visit [facility] [address] [phone] Yaquelin Barker, PAC Iron deficiency anemia, unspecified [...] : 1985 [facility] Date: 09/12/2021 Care Team: Current Providers [...] NOTES: Josh Akhtar DO, EDILIA Barker PA-C /[facility] Vitals: Vitals: 09/12/21 0841 BP: 98/64 [...] AM CDT) Folate >20.00 >=5.90 ng/mL [facility] Blood 10/17/2021 9:35 AM CDT [facility] - 10/18/2021 4:21 PM CDT IS THE PATIENT REQUIRED TO BE FASTING FOR 12 HOURS?->No Release to patient->Immediate Yaquelin Barker PAC CHEMISTRY ORDERABLES Final Result Performing Organization Address City/[facility]/ZIP Co de Phone Number [facility] Cancer Care [address] [place] [address], [place] [phone] * VITAMIN B12 (10/17/2021 9:35 AM CDT) Vitamin B12 288 180 - 914 pg/mL [facility] Blood 10/17/2021 9:35 AM CDT [facility] - 10/18/2021 4:21 PM CDT Release to patient->Immediate Yaquelin Barker PAC CHEMISTRY ORDERABLES Final Result [facility] Cancer Care [address] [place] [address], [place] [phone] * FERRITIN (10/17/2021 9:35 AM CDT) Ferritin 30 11 - 307 ng/mL CANCER RESERVE OPERATOR [facility] Blood 10/17/2021 9:35 AM CDT Narrative [facility] - 10/18/2021 4:19 PM CDT Release to patient->Immediate Yaquelin Barker PAC CHEMISTRY ORDERABLES Final Result Performing Organization Address City/[facility]/ZIP Co de Phone Number [facility] [address] [place] [address], [place] [phone] * IRON W/ IRON BINDING [place] (10/17/2021 9:35 AM CDT) IRON 75 50 - 212 ug/dL [facility] UIBC 216 155 - 355 ug/dL [facility] TIBC 291 261 - 478 ug/dl [facility] % Saturation 26 20 - 50 % [facility] Blood 10/17/2021 9:35 AM CDT [facility] - 10/17/2021 10:34 AM CDT Release to patient->Immediate Yaquelin Barker PAC LAB SEND OUTS Final Resu lt Performing Organization Address City/[facility]/ZIP Co de Phone Number [facility] [address] [address], [place] [phone] * CMP (COMPREHENSIVE METABOLIC PANEL) (10/17/2021 9:35 AM CDT) Glucose 82 70 - 105 mg/dL [facility] Blood Urea Nitrogen 10 7 - 25 mg/dL [facility] Creatinine 0.7 0.6 - 1.2 mg/dL [facility] Sodium 139 136 - 145 mEq/L [facility] Potassium 3.9 3.5 - 5.1 mEq/L [facility] Chloride 104 98 - 107 mEq/L [facility] Bicarbonate 30 21 - 31 mEq/L [facility] Total Bilirubin 0.4 0.3 - 1.0 mg/dL [facility] Alk. Phosphatase 34 34 - 104 U/L [facility] Aspartate Aminotransferase 16 13 - 39 U/L [facility] Alanine Aminotransferase 10 7 - 52 U/L [facility] Total Protein 6.4 6.4 - 8.9 g/dL [facility] Albumin 4.3 3.5 - 5.7 g/dL [facility] Calcium 9.4 8.6 - 10.3 mg/dL [facility] Anion Gap 8.9 7.0 - 15.0 mEq/L [facility] Globulin 2.1 2.0 - 3.5 g/dL [facility] EGFR 115 >60 ml/min/1. 73m2 [facility] Comment: This eGFR is calculated using 2020 CKD-EPI Creatinine equation without race modifier based on the NKF-ASN task force recommendations Blood 10/17/2021 9:35 AM CDT Narrative [facility] - 10/17/2021 10:34 AM CDT IS THE PATIENT REQUIRED TO BE FASTING FOR 8 HOURS?->No Release to patient->Immediate Yaquelin Barker PAC CHEMISTRY ORDERABLES Final Result [facility] [place] [address], * (ABNORMAL) COMPLETE BLOOD COUNT (CBC) WITH DIFF (10/17/2021 9:35 AM CDT) WBC 3.9(L) 4.0 - 10.0 10*3/uL [facility] HGB 12.2 11.2 - 15.7 g/dL [facility] HCT 36.4 34.1 - 44.9 % [facility] PLT 279 163 - 369 10*3/uL [facility] MPV 9.6 9.4 - 12.4 fL [facility] RBC 4.24 3.93 - 5.22 10*6/uL [facility] MCV 86 79 - 95 fL [facility] MCH 28.8 25.6 - 32.2 pg [facility] MCHC 33.5 32.2 - 36.5 g/dL [facility] RDW 15.8(H) 11.6 - 14.4 % [facility] Absolute Neutrophil Count 1,896 cells/uL [facility] Absolute Seg Count 1,896 1,440 - 6,600 cells/uL [facility] Absolute Lymph Count 1,509 760 - 4,000 cells/uL [facility] Absolute [place] Count 232 160 - 1,200 cells/uL [facility] Absolute Eos Count 194 0 - 300 cells/uL [facility] Absolute Baso Count 39 0 - 100 cells/uL [facility] Segmented Neutrophils 49 36 - 66 % [facility] Lymphocytes 39 19 - 40 % [facility] [place] Monocytes 6 4 - 12 % [facility] Eosinophils 5(H) 0 - 3 % [facility] Basophils 1 0 - 1 % [facility] WBC Estimate Low [facility] Platelet Estimate Normal [facility] RBC Morphology Abnormal [facility] Anisocytosis 1+ [facility] Blood 10/17/2021 9:35 AM CDT Narrative [facility] - 10/17/2021 1:04 PM CDT Release to patient->Immediate Yaquelin Barker [facility] HEMATOLOGY ORDERABLES Mary iverson Result [facility] [address] [place] [address], * VITAMIN D, 25 HYDROXY TOTAL (09/12/2021 9:41 AM CDT) 25() Vitamin D, Total 30.4 30.0 - 100.0 ng/mL CANCER RESERVE OPERATOR [facility] Comment: The Clinical Guidelines Subcommittee of the Endocrine Society Task Force established the guidelines below for recommended serum 25(OH) vitamin D levels. ??Other clinical reference citations may show different values. Deficient ? <20 ? Insufficient ? 20 to <30 ? Sufficient ? 30 to 100 ? Upper Safety Limit ?>100 Blood 09/12/2021 9:41 AM CDT [facility] - 09/13/2021 2:23 PM CDT Release to patient->Immediate Yaquelin Barker PAC CHEMISTRY ORDERABLES Final Result Performing Organization Address [facility] Co de Phone Number CANCER RESERVE OPERATOR [facility] Cancer Care [address] [place] [address], * FOLIC ACID (FOLATE) (09/12/2021 9:41 AM CDT) Folate >20.00 >=5.90 ng/mL [facility] Blood 09/12/2021 9:41 AM CDT [facility] - 09/12/2021 1:59 PM CDT IS THE PATIENT REQUIRED TO BE FASTING FOR 12 HOURS?->No Release to patient->Immediate Yaquelin Barker PAC CHEMISTRY ORDERABLES Final Result Performing Organization Address [facility] Co de Phone Number [facility] Cancer [facility] [address] [place] [address], * VITAMIN B12 (09/12/2021 9:41 AM CDT) Vitamin B12 297 180 - 914 pg/mL [facility] Blood 09/12/2021 9:41 AM CDT [facility] - 09/12/2021 1:59 PM CDT Release to patient->Immediate Yaquelin Barker PAC CHEMISTRY ORDERABLES Final Result [facility]CER RESERVE OPERATOR [facility] [address] [place] [address], * FERRITIN (09/12/2021 9:41 AM CDT) Ferritin 154 11 - 307 ng/mL [facility] Blood 09/12/2021 9:41 AM CDT Narrative [facility] - 09/12/2021 1:59 PM CDT Release to patient->Immediate Yaquelin Barker PAC CHEMISTRY ORDERABLES Final Result Performing Organization Address City/[facility] Co de Phone Number [facility] [address] [place] [address], * IRON W/ IRON BINDING [place] (09/12/2021 9:41 AM CDT) IRON 89 50 - 212 ug/dL [facility] UIBC 181 155 - 355 ug/dL [facility] TIBC 270 261 - 478 ug/dl [facility] % Saturation 33 20 - 50 % [facility] Blood 09/12/2021 9:41 AM CDT [facility] - 09/12/2021 10:41 AM CDT Release to patient->Immediate Yaquelin Barker PAC LAB SEND OUTS Final Resu lt [facility] [address] [place] [address], [place] [phone] * (ABNORMAL) CMP (COMPREHENSIVE METABOLIC PANEL) (09/12/2021 9:41 AM CDT) Glucose 95 70 - 105 mg/dL [facility] Blood Urea Nitrogen 11 7 - 25 mg/dL [facility] Creatinine 0.8 0.6 - 1.2 mg/dL [facility] Sodium 140 136 - 145 mEq/L [facility] Potassium 3.9 3.5 - 5.1 mEq/L [facility] Chloride 104 98 - 107 mEq/L [facility] Bicarbonate 30 21 - 31 mEq/L [facility] Total Bilirubin 0.3 0.3 - 1.0 mg/dL [facility] Alk. Phosphatase 30(L) 34 - 104 U/L [facility] Aspartate Aminotransferase 19 13 - 39 U/L [facility] Alanine Aminotransferase 12 7 - 52 U/L [facility] Total Protein 6.7 6.4 - 8.9 g/dL [facility] Albumin 4.5 3.5 - 5.7 g/dL [facility] Calcium 9.6 8.6 - 10.3 mg/dL [facility] Anion Gap 9.9 7.0 - 15.0 mEq/L [facility] Globulin 2.2 2.0 - 3.5 g/dL [facility] EGFR 98 >60 ml/min/1. 73m2 [facility] Comment: This eGFR is calculated using 2020 CKD-EPI Creatinine equation without race modifier based on the NKF-ASN task force recommendations Blood 09/12/2021 9:41 AM CDT Narrative [facility] - 09/12/2021 10:41 AM CDT IS THE PATIENT REQUIRED TO BE FASTING FOR 8 HOURS?->No Release to patient->Immediate Yaquelin Barker PAC CHEMISTRY ORDERABLES Final Result [facility] [address] [place] [address], * (ABNORMAL) COMPLETE BLOOD COUNT (CBC) WITH DIFF (09/12/2021 9:41 AM CDT) WBC 3.7(L) 4.0 - 10.0 10*3/uL [facility] HGB 11.6 11.2 - 15.7 g/dL [facility] HCT 35.7 34.1 - 44.9 % [facility] PLT 260 163 - 369 10*3/uL [facility] MPV 9.8 9.4 - 12.4 fL [facility] RBC 4.26 3.93 - 5.22 10*6/uL [facility] MCV 84 79 - 95 fL [facility] MCH 27.2 25.6 - 32.2 pg [facility] MCHC 32.5 32.2 - 36.5 g/dL [facility] RDW 19.6(H) 11.6 - 14.4 % [facility] Absolute Neutrophil Count 1,720 cells/uL [facility] Absolute Seg Count 1,720 1,440 - 6,600 cells/uL [facility] Absolute Lymph Count 1,608 760 - 4,000 cells/uL [facility] Absolute [place] Count 187 160 - 1,200 cells/uL [facility] Absolute Eos Count 150 0 - 300 cells/uL [facility] Absolute Baso Count 75 0 - 100 cells/uL [facility] Segmented Neutrophils 46 36 - 66 % [facility] Lymphocytes 43(H) 19 - 40 % [facility] Monocytes 5 4 - 12 % [facility] Eosinophils 4(H) 0 - 3 % [facility] Basophils 2(H) 0 - 1 % [facility] WBC Estimate Low [facility] Platelet Estimate Normal [facility] RBC Morphology Abnormal [facility] Anisocytosis 1+ [facility] Blood 09/12/2021 9:41 AM CDT Narrative [facility] - 09/12/2021 11:28 AM CDT Release to patient->Immediate Yaquelin Barker [facility] HEMATOLOGY ORDERABLES Mary iverson Result [facility] [address] [place] [address], documented in this encounter Visit Diagnoses Diagnosis Iron deficiency anemia, unspecified iron deficiency anemia type- Primary Vitamin D deficiency Unspecified vitamin D deficiency Iron deficiency anemia, unspecified iron deficiency anemia type Vitamin D deficiency Unspecified vitamin D deficiency Iron deficiency anemia, unspecified iron deficiency anemia type Vitamin D deficiency Unspecified vitamin D deficiency documented in this encounter Care Teams Military Equipment Specialist Relationship Specialty Start Date End Date Jacquie Fair, OFFICE ASST, CONTRACTS ANALYST [address] [facility], [address] [place] [address] PCP - General Advanced Practice Nurse 07/11/21 documented as of this encounter
--- OUTSIDE RECORDS SUMMARY | 2024-02-27 10:18 | XMS_ITS | Encounter Summary ---
Author Organization [employer] Care Team Providers Care Woolen Suiting Shrinker Name Role Phone Jacquie Fair APRN, CNP [...] on filedocumented in this encounter Care Teams Woolen Suiting Shrinker Relationship Specialty Start Date End Date Jacquie Fair APRN, CNP [address] [facility], [address] [place] [address] PCP - General Advanced Practice Nurse 07/11/21 documented as of this encounter
--- OUTSIDE RECORDS SUMMARY | 2024-02-27 10:18 | XMS_ITS | Encounter Summary ---
Author Organization [employer] Care Team Providers Care Bus Operator Name Role Phone Jacquie Fair APRN, [...] on filedocumented in this encounter Care Teams Bus Operator Relationship Specialty Start Date End Date Jacquie Fair APRN, CNP [address] [facility], [address] [place] [address] PCP - General Advanced Practice Nurse 07/11/21 documented as of this encounter
--- OUTSIDE RECORDS SUMMARY | 2024-02-27 10:18 | XMS_ITS | Encounter Summary ---
Author Organization [facility] Address [address] [place] [address] Phone Care Team Providers Care Apprenticeship Training Representative Name Role Phone Jacquie Fair APRN, CNP Primary Care Provid er Encounter Details Date Type Department Care Team (Late st Contact Info) Description 01/16/2022 Telephone [facility] [address] [phone] Yaquelin Barker, PAC Social History [...] Coronavirus/COVID-19? No / Unsure 01/16/2022 8:02 AM OUTBOUND SALES AGENT documented as of this encounter Miscellaneous Notes * Telephone Encounter - Shania Rascon RN - 01/17/2022 3:20 PM CST Images from the original note were not included. Ronit Schaffer routed conversation to Sharlene El RN 6 hours ago (8:21 AM) Jacinto Benoit, [facility] You; Josh Akhtar, DO; Raj Kuo RN; Cc [facility] Treatment Pool 23 hours ago (4:07 PM) BW Per Dora El, insurance could approve Feraheme. Pasted two additional doses to our patient's existing treatment plan. Thank you, Luis Armando Message text OUND SALES AGENT * Addendum Note - Daily Michele RN - 01/16/2022 1:41 PM CSTAddended by: DAILY ANTONIO on: 01/16/2022 01:41 PM Modules accepted: Orders OUND SALES AGENT * Telephone Encounter - Daily Michele RN - 01/16/2022 1:41 PM OUTBOUND SALES AGENT Lab orders placed and Sherry in lab notified to run additional labs. OUND SALES AGENT * Telephone Encounter - Daily Michele RN - 01/16/2022 1:38 PM OUTBOUND SALES AGENT Images from the original note were not included. Yaquelin Barker, PAC Shania Rascon RN; Cc [facility] 1 minute ago (1:37 PM) LW Yes, please add on anti-parietal cells and intrinsic factor to labs drawn today. Thanks! Message text OUND SALES AGENT * Telephone Encounter - Shania Rascon RN - 01/16/2022 1:26 PM CST patient asked about Autoimmune labs? Would you like any additional labs done for patient? Thank you. Pleas update and authorize Iron infusion OUND SALES AGENT * Telephone Encounter - Shania Rascon RN - 01/16/2022 10:46 AM CST Please update Iron plan and authorize. 1st dose scheduled. Labs sent to Gynecology and Dr. John. Called and updated patient, she verbalizes understanding. She will schedule appointment with Dr. John. Rescheduled OV for 6 weeks OUND SALES AGENT OUND SALES AGENT * Telephone Encounter - Shania Rascon RN - 01/16/2022 10:11 AM CST ----- Message from JANESSA Gaytan sent at 01/16/2022 9:43 AM OUTBOUND SALES AGENT ----- Please set patient up with IV iron. Will need to change follow up appointment to return to office in 6 weeks with repeat labs. Please send labs to CHIEF INFORMATION SECURITY OFFICER and GI. Patient has follow up appointment with CHIEF INFORMATION SECURITY OFFICER scheduled. Encourage patient to get back in with GI (Dr. John) as well. OUND SALES AGENT documented in this encounter Plan of Treatment Not on file documented as of this encounter Results * INTR[place] [id number] (01/16/2022 8:08 AM OUTBOUND SALES AGENT) INTRINSIC FACTOR ABS, [place] 1.0 0.0 - 1.1 AU/ML [facility] 01/16/2022 8:08 AM OUTBOUND SALES AGENT Narrative [facility] - 01/19/2022 3:08 PM OUTBOUND SALES AGENT TESTING PERFORMED AT: [] [address], [address], PHONE: [phone], MINING HELPER: LIZ CINTRON MD Release to patient->Immediate us Yaquelin Barker PAC LAB SEND OUTS Final Resu lt [facility] * ANTIPARI[place]AL [place]TIBODY [place] [id number] (01/16/2022 8:08 AM OUTBOUND SALES AGENT) ANTIPARIETAL CELL ANTIBODY 8.2 0.0 - 20.0 UNITS [facility] Comment: ? NEGATIVE ?0.0 - 20.0 ? EQUIVOCAL ??20.1 - 24.9 ? POSITIVE ? >24.9 ? PARIETAL CELL ANTIBODIES ARE FOUND IN 90% OF PATIENTS ? WITH PERNICIOUS ANEMIA AND 30% OF FIRST DEGREE ? RELATIVES WITH PERNICIOUS ANEMIA. 01/16/2022 8:08 AM OUTBOUND SALES AGENT Narrative [facility] - 01/17/2022 1:08 PM OUTBOUND SALES AGENT TESTING PERFORMED AT: [] [address], [place], [address], PHONE: [phone], MINING HELPER: ERIC VELASQUEZ, PHD Release to patient->Immediate us Yaquelin Barker PAC LAB SEND OUTS Final Resu lt [facility] documented in this encounter Visit Diagnoses Diagnosis Iron deficiency anemia, unspecified iron deficiency anemia type Menorrhagia with regular cycle Excessive or frequent menstruation Vitamin D deficiency Unspecified vitamin D deficiency Iron deficiency anemia, unspecified iron deficiency anemia type- Primary Menorrhagia with regular cycle Excessive or frequent menstruation Vitamin D deficiency Unspecified vitamin D deficiency documented in this encounter Care Teams Apprenticeship Training Representative Relationship Specialty Start Date End Date Jacquie Fair APRN, FLOOR TECH [address] [facility], [address] [place] [address] PCP - General Advanced Practice Nurse 07/11/21 documented as of this encounter
--- OUTSIDE RECORDS SUMMARY | 2024-02-27 10:18 | XMS_ITS | Encounter Summary ---
Author Organization [facility] Address [address] [address] Phone Care Team Providers Care Visual Lead Name Role Phone Jacquie Fair APRN, CNP Primary Care Provid er Reason for Referral * Consult, Test & Initiate Treatment (Routine) - Closed Specialty Diagnoses / Procedures Referred By Nir small Referred To Contact Gynecology Diagnoses Iron deficiency anemia, unspecified iron deficiency anemia type Menorrhagia with regular cycle Yaquelin aBrker PAC Referral ID Status Reason Start Date Expiration Date Visits Re quested Visits Authorized [id number] Closed 10/17/2021 1 1 Scheduling Instructions Shagufta is being referral for heavy menstrual periods. Wants to seen by a CUSTODIAL SUPERVISOR at [facility] Reason for Visit * Reason Comments Follow-up Encounter Details Date Type Department Care Team (Late st Contact Info) Description 10/17/2021 10:45 AM CDT Office Visit [facility] [address] [address] Yaquelin Barker PAC Iron deficiency anemia, unspecified [...] : 1985 Encounter [facility] Encounter Date: 10/17/2021 Care Team: Current Providers PCP: Jacquie Fair APRN, CNP Encounter Provider: Yaquelin Barker PAC Referring Provider: Jacquie Fair APRN, CNP Physician Staff Midwife: Yaquelin Barker PAC PRIMARY PHYSICIAN: Jacquie Fair [...] 6 weeks 5. Referral to Gynecology at [facility]. Dr. Akhtar was present in the [...] reviewed. Josh Akhtar DO, EDILIA Barker PA-C /critical access hospital Vitals: Vitals: 10/17/21 0950 BP: 100/60 BP [...] AM CDT) Folate >20.00 >=5.90 ng/mL [facility] 12/05/2021 8:37 AM CDT [facility] - 12/05/2021 1:56 PM CDT IS THE PATIENT REQUIRED TO BE FASTING FOR 12 HOURS?->No Release to patient->Immediate Yaquelin Barker PAC CHEMISTRY ORDERABLES Final Result [facility] [address] [place] [address], [place] [phone] * VITAMIN B12 (12/05/2021 8:37 AM CDT) Vitamin B12 346 180 - 914 pg/mL [facility] Blood 12/05/2021 8:37 AM CDT [facility] - 12/05/2021 2:06 PM CDT Release to patient->Immediate Yaquelin Barker PAC CHEMISTRY ORDERABLES Final Result [facility] [address] [place] [address], [place] [phone] * FERRITIN (12/05/2021 8:37 AM CDT) Ferritin 13 11 - 307 ng/mL [facility] Blood 12/05/2021 8:37 AM CDT Narrative [facility] - 12/05/2021 1:56 PM CDT Release to patient->Immediate Yaquelin Barker PAC CHEMISTRY ORDERABLES Final Result Performing Organization Address City/[facility]/ZIP Co de Phone Number CANCER LICENSED CLINICAL PSYCHOLOGIST [facility] [address] [place] [address], [place] [phone] * IRON W/ IRON BINDING CAPACITY [place] (12/05/2021 8:37 AM CDT) IRON 91 50 - 212 ug/dL [facility] UIBC 214 155 - 355 ug/dL [facility] TIBC 305 261 - 478 ug/dl [facility] % Saturation 30 20 - 50 % [facility] Blood 12/05/2021 8:[address] [facility] - 12/05/2021 10:32 AM CDT Release to patient->Immediate Yaquelin Barekr PAC LAB SEND OUTS Final Resu lt Performing Organization Address [facility]/ZIP Co de Phone Number [facility] [address] [address], [place] [phone] * (ABNORMAL) CMP (COMPREHENSIVE METABOLIC PANEL) (12/05/2021 8:37 AM CDT) Glucose 105 70 - 105 mg/dL [facility] Blood Urea Nitrogen 10 7 - 25 mg/dL [facility] Creatinine 0.8 0.6 - 1.2 mg/dL [facility] Sodium 141 136 - 145 mEq/L [facility] Potassium 3.8 3.5 - 5.1 mEq/L [facility] Chloride 105 98 - 107 mEq/L [facility] Bicarbonate 27 21 - 31 mEq/L [facility] Total Bilirubin 0.4 0.3 - 1.0 mg/dL [facility] Alk. Phosphatase 30(L) 34 - 104 U/L [facility] Aspartate Aminotransferase 18 13 - 39 U/L [facility] Alanine Aminotransferase 17 7 - 52 U/L [facility] Total Protein 6.5 6.4 - 8.9 g/dL [facility] Albumin 4.4 3.5 - 5.7 g/dL [facility] Calcium 9.4 8.6 - 10.3 mg/dL [facility] Anion Gap 12.8 7.0 - 15.0 mEq/L [facility] Globulin 2.1 2.0 - 3.5 g/dL [facility] EGFR 98 >60 ml/min/1. 73m2 [facility] Comment: This eGFR is calculated using 2020 CKD-EPI Creatinine equation without race modifier based on the NKF-ASN task force recommendations Blood 12/05/2021 8:37 AM CDT Narrative [facility] - 12/05/2021 10:32 AM CDT IS THE PATIENT REQUIRED TO BE FASTING FOR 8 HOURS?->No Release to patient->Immediate Yaquelin Barker PAC CHEMISTRY ORDERABLES Final Result [facility] [address] [address], documented in this encounter Visit Diagnoses Diagnosis Iron deficiency anemia, unspecified iron deficiency anemia type- Primary Menorrhagia with regular cycle Excessive or frequent menstruation Iron deficiency anemia, unspecified iron deficiency anemia type Menorrhagia with regular cycle Excessive or frequent menstruation documented in this encounter Care Teams Visual Lead Relationship Specialty Start Date End Date Jacquie Fair APRN, STATISTICAL FINANCIAL ANALYST [address] [facility], [address] [place] [address] PCP - General Advanced Practice Nurse 07/11/21 documented as of this encounter
--- OUTSIDE RECORDS SUMMARY | 2024-02-27 10:18 | XMS_ITS | Encounter Summary ---
Author Organization [facility] Address [address] [place] [address] Phone Care Team Providers Care Wetlands Conservation Laborer Name Role Phone Jacquie Fair APRN, CNP Primary Care Provid er Reason for Visit * Reason Comments Iron Infusion * Episode Based Medications (Routine) - Authorized Specialty Diagnoses / Procedures Referred By Nir small Referred To Contact Diagnoses Iron deficiency anemia, unspecified iron deficiency anemia type Procedures EPOETIN ROBLES RETACRIT NON-ESRD 1000 UNITS Josh Holm DO [address] [place] [address] Phone: tel: fax: [facility] [address] [address] Phone: tel: fax: Referral ID Status Reason Start Date Expiration Date V isits Requested Visits Authorized [id number] Authorized 08/04/2021 03/10/2023 1 1 Encounter Details Date Type Department Care Team (Latest Contact Info) Description 01/31/2022 3:[address] MAGISTRATE Clinical Support [facility] [address] [address] Nurse, Chelsy [facility] Iron deficiency anemia, unspecified iron deficiency [...] Coronavirus/COVID-19? No / Unsure 01/31/2022 3:[address] MAGISTRATE documented as of this encounter Progress Notes * Jelena Michele, RN - 01/31/2022 3:00 PM CST IV iron given through PIV in right arm as ordered and tolerated well. PIV flushed with 100 ml NS and pt observed for 20 minutes post iron infusion Tolerated well. Left ambulatory unaccompanied. Performance status unchanged since arrival to clinic. CIPAL COURT MAGISTRATE documented in this encounter Plan of Treatment [...] 12.5 mg, Intravenous, ONCE, 1 dose, On Sat01/31/22 at 1600Indications:Iron deficiency anemia, unspecified iron deficiency anemia type Given 01/31/2022 3:[address] MAGISTRATE 12.5 mg famotidine (PEPCID) 20 mg in sodium chloride 0.9 % 10 mL syringe 20 mg, Intravenous, ONCE, 1 dose, On Sat01/31/22 at 1600, Administer over 2 Minutes, Indications: Pre Med, at 300 mL/hrIndications:Pre Med Given 01/31/2022 3:[address] MAGISTRATE 20 mg 300 mL/hr ferumoxytol (FERAHEME) 510 mg in sodium chloride 0.9 % 100 mL IVPB 510 mg, Intravenous, ONCE, 1 dose, On Sat01/31/22 at 1600, Administer over 15 Minutes, Route IV. NS 50 ml. Infuse over 15 minutes. Must observe for 30 minutes post infusion. Patient should be in a reclined or semi-reclined position during the infusion; monitor for signs of hypersensitivity (including blood pressure and pulse).Indications:Iron deficiency anemia, unspecified iron deficiency anemia type New Bag 01/31/2022 3:[address] MAGISTRATE 510 mg ondansetron (ZOFRAN) injection 8 mg 8 mg, Intravenous, ONCE, 1 dose, On Sat01/31/22 at 1600Indications:Iron deficiency anemia, unspecified iron deficiency anemia type Given 01/31/2022 3:[address] MAGISTRATE 8 mg documented in this encounter Care Teams Wetlands Conservation Laborer Relationship Specialty Start Date End Date Jacquie Fair APRN, MEDIA ACCOUNT EXECUTIVE [address] [facility], [address] [place] [address] PCP - General Advanced Practice Nurse 07/11/21 documented as of this encounter
--- OUTSIDE RECORDS SUMMARY | 2024-02-27 10:18 | XMS_ITS | Encounter Summary ---
Author Organization [facility] Address [address] [place] [address] Phone Care Team Providers Care Licensed Land Surveyor Name Role Phone Jacquie Fair APRN, CNP Primary Care Provid er Reason for Visit * Reason Comments Follow-up Encounter Details Date Type Department Care Team (Late st Contact Info) Description 02/28/2022 8:45 AM HUMAN RESOURCES PROFESSIONAL Office Visit [facility] [place] [address] [facility] [address] [place] [address] Josh Akhtar, DO [address] [place] [address] Iron deficiency anemia, unspecified iron [...] Coronavirus/COVID-19? No / Unsure 02/28/2022 8:32 AM HUMAN RESOURCES PROFESSIONAL documented as of this encounter Last Filed Vital Signs Vital Sign Reading Time Taken Comments Blood Pressure 114/68 02/28/2022 8:39 AM HUMAN RESOURCES PROFESSIONAL Pulse 106 02/28/2022 8:39 AM HUMAN RESOURCES PROFESSIONAL Temperature 36.6 ??C (97.8 ??F) 02/28/2022 8:39 AM CS T Respiratory Rate - - Oxygen Saturation 99% 02/28/2022 8:39 AM HUMAN RESOURCES PROFESSIONAL Inhaled Oxygen Concentration - - Weight 44.9 kg (99 lb) 02/28/2022 8:39 AM HUMAN RESOURCES PROFESSIONAL Height - - Body Mass Index 18.11 12/05/2021 8:45 AM CDT documented in this encounter Functional Status * Question Answer Date of Assessment Author Little interest or pleasure in doing things Not at all 02/28/2022 8:37 AM Josefa Lawson LPN Feeling down, depressed, or hopeless Not at all 02/28/2022 8:37 AM HUMAN RESOURCES PROFESSIONAL Josefa Conde LPN * Over the past 2 weeks, how often have you been bothered by any of the following problems? Question Answer Date of Assessment Author Patient Health Questionnaire -2 Score 0 02/28/2022 8:37 AM HUMAN RESOURCES PROFESSIONAL Josefa Conde LPN documented as of this [...] 12/28/20. CURRENT TREATMENT: 1. Tranexamic acid per STAGE SET UP WORKER. 2. Uterine biopsy and ablation per STAGE SET UP WORKER in March. 3. IV iron supplementation (taking [...] OF FIRST DEGREE RELATIVES WITH PERNICIOUS ANEMIA. N RESOURCES PROFESSIONAL N RESOURCES PROFESSIONAL documented in this encounter Plan of Treatment Not on file documented as of this encounter Results * IRON W/ IRON BINDING CAPACITY [place] (04/17/2022 8:16 AM HUMAN RESOURCES PROFESSIONAL) IRON 99 50 - 212 ug/dL [facility] UIBC 166 155 - 355 ug/dL [facility] TIBC 265 261 - 478 ug/dl [facility] % Saturation 37 20 - 50 % [facility] 04/17/2022 8:16 AM HUMAN RESOURCES PROFESSIONAL Narrative [facility] - 04/17/2022 9:21 AM HUMAN RESOURCES PROFESSIONAL Release to patient->Immediate us Josh Akhtar DO LAB SEND OUTS Final Result Performing Organization Address City/[facility]/ZIP Co de Phone Number [facility] Cancer [facility] [address] [address], [place] [phone] * FERRITIN (04/17/2022 8:16 AM HUMAN RESOURCES PROFESSIONAL) Ferritin 88 11 - 307 ng/mL [facility] Blood 04/17/2022 8:16 AM HUMAN RESOURCES PROFESSIONAL Narrative [facility] - 04/17/2022 2:04 PM HUMAN RESOURCES PROFESSIONAL Release to patient->Immediate Josh Akhtar DO CHEMISTRY ORDERABLES Final Res ult Performing Organization Address [facility] Co de Phone Number [facility] [address] [place] [address], [place] [phone] * (ABNORMAL) CMP (COMPREHENSIVE METABOLIC PANEL) (04/17/2022 8:16 AM HUMAN RESOURCES PROFESSIONAL) Glucose 93 70 - 105 mg/dL [facility] Blood Urea Nitrogen 14 7 - 25 mg/dL [facility] Creatinine 0.8 0.6 - 1.2 mg/dL [facility] Sodium 140 136 - 145 mEq/L [facility] Potassium 3.6 3.5 - 5.1 mEq/L [facility] Chloride 106 98 - 107 mEq/L [facility] Bicarbonate 27 21 - 31 mEq/L [facility] Total Bilirubin 0.4 0.3 - 1.0 mg/dL [facility] Alk. Phosphatase 27(L) 34 - 104 U/L [facility] Aspartate Aminotransferase 15 13 - 39 U/L [facility] Alanine Aminotransferase 8 7 - 52 U/L [facility] Total Protein 6.3(L) 6.4 - 8.9 g/dL [facility] Albumin 4.3 3.5 - 5.7 g/dL [facility] Calcium 9.2 8.6 - 10.3 mg/dL [facility] Anion Gap 10.6 7.0 - 15.0 mEq/L [facility] Globulin 2.0 2.0 - 3.5 g/dL [facility] EGFR 97 >60 ml/min/1. 73m2 [facility] Comment: This eGFR is calculated using 2020 CKD-EPI Creatinine equation without race modifier based on the NKF-ASN task force recommendations Blood 04/17/2022 8:16 AM HUMAN RESOURCES PROFESSIONAL Narrative [facility] - 04/17/2022 9:21 AM HUMAN RESOURCES PROFESSIONAL Release to patient->Immediate IS THE PATIENT REQUIRED TO BE FASTING FOR 8 HOURS?->No us Josh Akhtar DO CHEMISTRY ORDERABLES Final Res ult [facility] [address] [place] [address], documented in this encounter Visit Diagnoses Diagnosis Iron deficiency anemia, unspecified iron deficiency anemia type- Primary Iron deficiency anemia, unspecified iron deficiency anemia type documented in this encounter Care Teams Licensed Land Surveyor Relationship Specialty Start Date End Date Jacquie Fair, COIL STRAPPER, SLIP INJECTOR AND APPLICATOR [address] [facility], [address] [place], [place] [address] PCP - General Advanced Practice Nurse 07/11/21 documented as of this encounter
--- OUTSIDE RECORDS SUMMARY | 2024-02-27 10:18 | XMS_ITS | Encounter Summary ---
Author Organization [facility] Address [address] [place] [address] Phone Care Team Providers Care Handle And Vent Machine Operator Name Role Phone Jacquie Fair APRN, CNP Primary Care Provid er Reason for Visit * Reason Comments Iron Infusion * Episode Based Medications (Routine) - Authorized Specialty Diagnoses / Procedures Referred By Nir small Referred To Contact Diagnoses Iron deficiency anemia, unspecified iron deficiency anemia type Procedures EPOETIN ROBLES RETACRIT NON-ESRD 1000 UNITS Josh Holm DO [address] [place] [address] Phone: tel: fax: [facility] [address] [address] Phone: tel: fax: Referral ID Status Reason Start Date Expiration Date V isits Requested Visits Authorized [id number] Authorized 08/04/2021 03/10/2023 1 1 Encounter Details Date Type Department Care Team (Latest Contact Info) Description 01/25/2022 2:45 PM READING ASSISTANT Clinical Support [facility] [address] [address] Nurse, Chelsy [facility] Iron deficiency anemia, unspecified iron deficiency [...] Coronavirus/COVID-19? No / Unsure 01/25/2022 2:25 PM READING ASSISTANT documented as of this encounter Progress Notes * Jennifer Morales RN - 01/25/2022 2:45 PM CST IV iron given as ordered and tolerated well. PIV flushed with 100 ml NS and pt observed for 20 minutes post iron infusion Tolerated well. Left ambulatory unaccompanied. Performance status unchanged since arrival to clinic. ING ASSISTANT documented in this encounter Plan of Treatment [...] deficiency anemia type Given 01/25/2022 2:47 PM READING ASSISTANT 12.5 mg famotidine (PEPCID) 20 mg in sodium chloride 0.9 % 10 mL syringe 20 mg, Intravenous, ONCE, 1 dose, On Pam 01/25/22 at 1500, Administer over 2 Minutes, Indications: Pre Med, at 300 mL/hrIndications:Pre Med Given 01/25/2022 2:44 PM READING ASSISTANT 20 mg 300 mL/hr ferumoxytol (FERAHEME) 510 [...] anemia type New Bag 01/25/2022 2:55 PM READING ASSISTANT 510 mg documented in this encounter Care Teams Handle And Vent Machine Operator Relationship Specialty Start Date End Date Jacquie Fair, INNER TUBE INSERTER, ADVERTISING REPRESENTATIVE [address] [facility], [address] [place] [address] PCP - General Advanced Practice Nurse 07/11/21 documented as of this encounter
--- OUTSIDE RECORDS SUMMARY | 2024-02-27 10:18 | XMS_ITS | Encounter Summary ---
Author Organization [facility] Address [address] [place] [address] Phone Care Team Providers Care Wire Drawing Machine Operator Name Role Phone Jacquie Fair APRN, CNP Primary Care Provid er Encounter Details Date Type Department Care Team (Late st Contact Info) Description 12/05/2021 Telephone [facility] [address] [address] Yaquelin Barker, PAC Social History [...] on filedocumented in this encounter Care Teams Wire Drawing Machine Operator Relationship Specialty Start Date End Date Jacquie Fair APRN, GEOMETRY TEACHER [address] [facility], [address] [place] [address] PCP - General Advanced Practice Nurse 07/11/21 documented as of this encounter
--- OUTSIDE RECORDS SUMMARY | 2024-02-27 10:18 | XMS_ITS | Encounter Summary ---
Author Organization [employer] Care Team Providers Care Furnace Tapper Name Role Phone Jacquie Fair APRN, CNP [...] Coronavirus/COVID-19? No / Unsure 01/31/2022 3:12 PM BRICK OFFBEARER documented as of this encounter Plan of Treatment Not on file documented as of this encounter Visit Diagnoses Not on filedocumented in this encounter Care Teams Furnace Tapper Relationship Specialty Start Date End Date Jacquie Fair APRN, CNP [address] [facility], [address] [place] [address] PCP - General Advanced Practice Nurse 07/11/21 documented as of this encounter
--- OUTSIDE RECORDS SUMMARY | 2024-02-27 10:18 | XMS_ITS | Encounter Summary ---
Author Organization [facility] Address [address] [place] [address] Phone Care Team Providers Care Web Coordinator Name Role Phone Jacquie Fair APRN, CNP Primary Care Provid er Reason for Visit * Reason Comments Follow-up Encounter Details Date Type Department Care Team (Late st Contact Info) Description 01/16/2022 8:15 AM SAP PI DEVELOPER Office Visit [facility] [address] [phone] Yaquelin Barker, PAC Iron deficiency anemia, unspecified [...] Coronavirus/COVID-19? No / Unsure 01/16/2022 8:02 AM SAP PI DEVELOPER documented as of this encounter Last Filed Vital Signs Vital Sign Reading Time Taken Comments Blood Pressure 100/60 01/16/2022 8:25 AM SAP PI DEVELOPER Pulse 107 01/16/2022 8:25 AM SAP PI DEVELOPER Temperature 36.9 ??C (98.4 ??F) 01/16/2022 8:25 AM CS T Respiratory Rate - - Oxygen Saturation 100% 01/16/2022 8:25 AM SAP PI DEVELOPER Inhaled Oxygen Concentration - - Weight 43 kg (94 lb 11.2 oz) 01/16/2022 8:25 AM SAP PI DEVELOPER Height - - Body Mass Index 17.32 [...] Referring Provider: Jacquie Fair APRN, CNP Physician Animal Doctor: Yaquelin Barker PAC PRIMARY PHYSICIAN: Jacquie Fair [...] if indicated 3. Strongly encourage follow up Paranormal Investigator, Dr. John, for further evaluation. Patient would benefit from endoscopy or colonoscopy 4. Continue follow up with PROFESSOR OF ART HISTORY TIME SPENT: REVIEW OF SYSTEMS: See HPI; [...] Josh Akhtar DO at 01/26/2022 6:49 PM SAP PI DEVELOPER PI DEVELOPER PI DEVELOPER PI DEVELOPER documented in this encounter Plan of Treatment [...] Primary documented in this encounter Care Teams Web Coordinator Relationship Specialty Start Date End Date Jacquie Fair, LIBRARY CONSULTANT, LEAD MILITARY ANALYST [address] [facility], [address] [place] [address] PCP - General Advanced Practice Nurse 07/11/21 documented as of this encounter
--- OUTSIDE RECORDS SUMMARY | 2024-02-27 10:18 | XMS_ITS | Encounter Summary ---
Author Organization [facility] Address [address] [place] [address] Phone Care Team Providers Care Wood Heel Flap Rubber Name Role Phone Jacquie Fair APRN, CNP Primary Care Provid er Encounter Details Date Type Department Care Team (Late st Contact Info) Description 01/16/2022 8:05 AM SERVICE MECHANIC Lab [facility] [address] [address] Lab, Cc [facility] Iron deficiency anemia, unspecified iron [...] Coronavirus/COVID-19? No / Unsure 01/16/2022 8:02 AM SERVICE MECHANIC documented as of this encounter Plan of Treatment Not on file documented as of this encounter Procedures Procedure Name Priority Date/Time Associated Diagnosis Comments IRON W/ IRON BINDING CAPACITY [place] Routine 01/16/2022 8:08 AM SERVICE MECHANIC Iron deficiency anemia, unspecified iron deficiency anemia type Menorrhagia with regular cycle CBC WITH AUTO DIFF [place] Routine 01/16/2022 8:08 AM SERVICE MECHANIC INTR[place], [place] [address] Routine 01/16/2022 8:08 AM SERVICE MECHANIC Iron deficiency anemia, unspecified iron deficiency anemia type Menorrhagia with regular cycle Vitamin D deficiency [place] [address] Routine 01/16/2022 8:08 AM SERVICE MECHANIC Iron deficiency anemia, unspecified iron deficiency anemia type Menorrhagia with regular cycle Vitamin D deficiency FOLIC ACID (FOLATE) Routine 01/16/2022 8 :08 AM SERVICE MECHANIC Iron deficiency anemia, unspecified iron deficiency anemia type Menorrhagia with regular cycle FERRITIN Routine 01/16/2022 8:08 AM SERVICE MECHANIC Iron deficiency anemia, unspecified iron deficiency anemia type Menorrhagia with regular cycle CMP (COMPREHENSIVE METABOLIC PANEL) Routine 01/16/2022 8:08 AM SERVICE MECHANIC Iron deficiency anemia, unspecified iron deficiency anemia type Menorrhagia with regular cycle documented in this encounter Results * ANTIPARIETAL [place]LL [place]TIBODY [place] [address] (01/16/2022 8:08 AM SERVICE MECHANIC) [facility] ANTIPARIETAL CELL ANTIBODY 8.2 0.0 - 20.0 UNITS [facility] Comment: ? NEGATIVE ?0.0 - 20.0 ? EQUIVOCAL ??20.1 - 24.9 ? POSITIVE ? >24.9 ? PARIETAL CELL ANTIBODIES ARE FOUND IN 90% OF PATIENTS ? WITH PERNICIOUS ANEMIA AND 30% OF FIRST DEGREE ? RELATIVES WITH PERNICIOUS ANEMIA. 01/16/2022 8:08 AM SERVICE MECHANIC Narrative [facility] - 01/17/2022 1:08 PM SERVICE MECHANIC TESTING PERFORMED AT: [CB] [facility], [address] [place], [address], PHONE: [phone], JOB PRINTER APPRENTICE: ERIC VELASQUEZ, PHD Release to patient->Immediate [facility] PAC LAB SEND OUTS Final Resu lt Performing Organization Address City/[facility]/ZIP Co de Phone Number [facility] * INTRINSIC FACTOR ABS, [place] [address] (01/16/2022 8:08 AM SERVICE MECHANIC) Pathologist [facility] INTRINSIC FACTOR ABS, [place] 1.0 0.0 - 1.1 AU/ML [facility] 01/16/2022 8:08 AM SERVICE MECHANIC Narrative [facility] - 01/19/2022 3:08 PM SERVICE MECHANIC TESTING PERFORMED AT: [] [address], [address], PHONE: [phone], JOB PRINTER APPRENTICE: LIZ CINTRON MD Release to patient->Immediate Yaquelin Barker PAC LAB SEND OUTS Final Resu lt [facility] * (ABNORMAL) CBC WITH AUTO DIFF [place] (01/16/2022 8:08 AM SERVICE MECHANIC) WBC 4.7 4.0 - 10.0 10*3/uL [facility] HGB 11.6 11.2 - 15.7 g/dL [facility] HCT 35.9 34.1 - 44.9 % [facility] PLT 279 163 - 369 10*3/uL [facility] MPV 9.6 9.4 - 12.4 fL [facility] RBC 4.02 3.93 - 5.22 10*6/uL [facility] MCV 89 79 - 95 fL [facility] MCH 28.9 25.6 - 32.2 pg [facility] MCHC 32.3 32.2 - 36.5 g/dL [facility] RDW 11.8 11.6 - 14.4 % [facility] Neutrophils % 54.0 36.0 - 66.0 % [facility] Lymphocytes % 34.2 19.0 - 40.0 % [facility] Monocytes % 6.2 4.1 - 12.1 % [facility] Eosinophils % 4.1(H) 0.0 - 3.5 % [facility] Basophils % 1.1(H) 0.0 - 1.0 % [facility] Absolute Neutrophils 2.5 1.4 - 6.6 10*3/uL [facility] Absolute Lymphocytes 1.6 0.8 - 4.0 10*3/uL [facility] Absolute Monocytes 0.3 0.2 - 1.2 10*3/uL [facility] Absolute Eosinophils 0.2 0.0 - 0.4 10*3/uL [facility] Absolute Basophils 0.1 0.0 - 0.1 10*3/uL [facility] 01/16/2022 8:08 AM SERVICE MECHANIC us Yaquelin Barker PAC LAB SEND OUTS Final Resu lt [facility] [address] [place] [address], * (ABNORMAL) CMP (COMPREHENSIVE METABOLIC PANEL) (01/16/2022 8:08 AM SERVICE MECHANIC) Glucose 130(H) 70 - 105 mg/dL [facility] Blood Urea Nitrogen 6(L) 7 - 25 mg/dL [facility] Creatinine 0.9 0.6 - 1.2 mg/dL [facility] Sodium 141 136 - 145 mEq/L [facility] Potassium 3.9 3.5 - 5.1 mEq/L [facility] Chloride 106 98 - 107 mEq/L [facility] Bicarbonate 27 21 - 31 mEq/L [facility] Total Bilirubin 0.3 0.3 - 1.0 mg/dL [facility] Alk. Phosphatase 35 34 - 104 U/L [facility] Aspartate Aminotransferase 14 13 - 39 U/L [facility] Alanine Aminotransferase 7 7 - 52 U/L [facility] Total Protein 6.3(L) 6.4 - 8.9 g/dL [facility] Albumin 4.1 3.5 - 5.7 g/dL [facility] Calcium 9.2 8.6 - 10.3 mg/dL [facility] Anion Gap 11.9 7.0 - 15.0 mEq/L [facility] Globulin 2.2 2.0 - 3.5 g/dL [facility] EGFR 85 >60 ml/min/1. 73m2 [facility] Comment: This eGFR is calculated using 2020 CKD-EPI Creatinine equation without race modifier based on the NKF-ASN task force recommendations Blood 01/16/2022 8:08 AM SERVICE MECHANIC Narrative [facility] - 01/16/2022 8:57 AM SERVICE MECHANIC IS THE PATIENT REQUIRED TO BE FASTING FOR 8 HOURS?->No Release to patient->Immediate Yaquelin Barker PAC CHEMISTRY ORDERABLES Final Result [facility] [address] [place] [address], * (ABNORMAL) IRON W/ IRON BINDING CAPACITY [place] (01/16/2022 8:08 AM SERVICE MECHANIC) IRON 21(L) 50 - 212 ug/dL [facility] UIBC 318 155 - 355 ug/dL [facility] TIBC 339 261 - 478 ug/dl [facility] % Saturation 6(L) 20 - 50 % [facility] Blood 01/16/2022 8:08 AM SERVICE MECHANIC Dev [facility] - 01/16/2022 8:57 AM SERVICE MECHANIC Release to patient->Immediate us Yaquelin Barker PAC LAB SEND OUTS Final Resu lt Performing Organization Address City/[facility]/ZIP Co de Phone Number [facility] [address] [place] [address], [place] [phone] * (ABNORMAL) FERRITIN (01/16/2022 8:08 AM SERVICE MECHANIC) Ferritin 3(L) 11 - 307 ng/mL [facility] Blood 01/16/2022 8:08 AM SERVICE MECHANIC Dev [facility] 01/16/2022 3:15 PM SERVICE MECHANIC Release to patient->Immediate us Yaquelin Barker PAC CHEMISTRY ORDERABLES Final Result Performing Organization Address [facility] Co de Phone Number [facility] [address] [place] [address], [place] [phone] * FOLIC ACID (FOLATE) (01/16/2022 8:08 AM SERVICE MECHANIC) Folate >20.00 >=5.90 ng/mL [facility] Blood 01/16/2022 8:08 AM SERVICE MECHANIC Dev [facility] - 01/16/2022 3:15 PM SERVICE MECHANIC IS THE PATIENT REQUIRED TO BE FASTING FOR 12 HOURS?->No Release to patient->Immediate us Yaquelin Barker PAC CHEMISTRY ORDERABLES Final Result Performing Organization Address City/[facility]/ZIP Co de Phone Number [facility] [address] [place] [place] [address], [place] [phone] documented in this encounter Visit Diagnoses Diagnosis Iron deficiency anemia, unspecified iron deficiency anemia type Menorrhagia with regular cycle Excessive or frequent menstruation Vitamin D deficiency Unspecified vitamin D deficiency documented in this encounter Care Teams Wood Heel Flap Rubber Relationship Specialty Start Date End Date Jacquie Fair APRN, POLITICAL ORGANIZER [address] [facility], [address] [place] [address] PCP - General Advanced Practice Nurse 07/11/21 documented as of this encounter
--- OUTSIDE RECORDS SUMMARY | 2024-02-27 10:18 | XMS_ITS | Encounter Summary ---
Author Organization [facility] Address [address] [place] [address] Phone Care Team Providers Care Jewelry Sales Name Role Phone Jacquie Fair APRN, CNP Primary Care Provid er Encounter Details Date Type Department Care Team (Late st Contact Info) Description 09/12/2021 9:35 AM CDT Lab [facility] [address] [address] Lab, Cc [facility] Iron deficiency anemia, unspecified iron deficiency anemia [...] 25 HYDROXY TOTAL (09/12/2021 9:41 AM CDT) [facility] 25() Vitamin D, Total 30.4 30.0 - 100.0 ng/mL [facility] Comment: The Clinical Guidelines Subcommittee of the Endocrine Society Task Force established the guidelines below for recommended serum 25(OH) vitamin D levels. ??Other clinical reference citations may show different values. Deficient ? <20 ? Insufficient ? 20 to <30 ? Sufficient ? 30 to 100 ? Upper Safety Limit ?>100 Blood 09/12/2021 9:41 AM CDT Narrative [facility] - 09/13/2021 2:23 PM CDT Release to patient->Immediate Yaquelin Barker PAC CHEMISTRY ORDERABLES Final Result Performing Organization Address [facility] Co de Phone Number [facility] [address] [address], [place] [phone] * FOLIC ACID (FOLATE) (09/12/2021 9:41 AM CDT) Folate >20.00 >=5.90 ng/mL [facility] Blood 09/12/2021 9:41 AM CDT [facility] - 09/12/2021 1:59 PM CDT IS THE PATIENT REQUIRED TO BE FASTING FOR 12 HOURS?->No Release to patient->Immediate Yaquelin Barker PAC CHEMISTRY ORDERABLES Final Result Performing Organization Address [facility] Co de Phone Number [facility] [address] [address], [place] [phone] * VITAMIN B12 (09/12/2021 9:41 AM CDT) Vitamin B12 297 180 - 914 pg/mL [facility] Blood 09/12/2021 9:41 AM CDT [facility] - 09/12/2021 1:59 PM CDT Release to patient->Immediate Yaquelin [place] PAC CHEMISTRY ORDERABLES Final Result Performing Organization Address [facility] Co de Phone Number [facility] [place] [address], [place] [phone] * FERRITIN (09/12/2021 9:41 AM CDT) Ferritin 154 11 - 307 ng/mL [facility] Blood 09/12/2021 9:41 AM CDT Narrative [facility] - 09/12/2021 1:59 PM CDT Release to patient->Immediate Yaquelin Barker PAC CHEMISTRY ORDERABLES Final Result [facility] [address] [place] [address], [place] [phone] * IRON W/ IRON BINDING CAPACITY [place] (09/12/2021 9:41 AM CDT) IRON 89 50 - 212 ug/dL [facility] UIBC 181 155 - 355 ug/dL [facility] TIBC 270 261 - 478 ug/dl [facility] % Saturation 33 20 - 50 % [facility] Blood 09/12/2021 9:41 AM CDT Narrative [facility] - 09/12/2021 10:41 AM CDT Release to patient->Immediate Yaquelin Barker PAC LAB SEND OUTS Final Resu lt [facility] [address] [place] [address], [place] [phone] * (ABNORMAL) CMP (COMPREHENSIVE METABOLIC PANEL) (09/12/2021 9:41 AM CDT) Glucose 95 70 - 105 mg/dL [facility] Blood Urea Nitrogen 11 7 - 25 mg/dL [facility] Creatinine 0.8 0.6 - 1.2 mg/dL [facility] Sodium 140 136 - 145 mEq/L [facility] Potassium 3.9 3.5 - 5.1 mEq/L [facility] Chloride 104 98 - 107 mEq/L [facility] Bicarbonate 30 21 - 31 mEq/L [facility] Total Bilirubin 0.3 0.3 - 1.0 mg/dL [facility] Alk. Phosphatase 30(L) 34 - 104 U/L [facility] Aspartate Aminotransferase 19 13 - 39 U/L [facility] Alanine Aminotransferase 12 7 - 52 U/L [facility] Total Protein 6.7 6.4 - 8.9 g/dL [facility] Albumin 4.5 3.5 - 5.7 g/dL [facility] Calcium 9.6 8.6 - 10.3 mg/dL [facility] Anion Gap 9.9 7.0 - 15.0 mEq/L [facility] Globulin 2.2 2.0 - 3.5 g/dL [facility] EGFR 98 >60 ml/min/1. 73m2 [facility] Comment: This eGFR is calculated using 2020 CKD-EPI Creatinine equation without race modifier based on the NKF-ASN task force recommendations Blood 09/12/2021 9:41 AM CDT Narrative [facility] - 09/12/2021 10:41 AM CDT IS THE PATIENT REQUIRED TO BE FASTING FOR 8 HOURS?->No Release to patient->Immediate Yaquelin Barker PAC CHEMISTRY ORDERABLES Final Result [facility] [address] [place] [address], * (ABNORMAL) COMPLETE BLOOD COUNT (CBC) WITH DIFF (09/12/2021 9:41 AM CDT) WBC 3.7(L) 4.0 - 10.0 10*3/uL [facility] HGB 11.6 11.2 - 15.7 g/dL [facility] HCT 35.7 34.1 - 44.9 % [facility] PLT 260 163 - 369 10*3/uL [facility] MPV 9.8 9.4 - 12.4 fL [facility] RBC 4.26 3.93 - 5.22 10*6/uL [facility] MCV 84 79 - 95 fL [facility] MCH 27.2 25.6 - 32.2 pg [facility] MCHC 32.5 32.2 - 36.5 g/dL [facility] RDW 19.6(H) 11.6 - 14.4 % [facility] Absolute Neutrophil Count 1,720 cells/uL [facility] Absolute Seg Count 1,720 1,440 - 6,600 cells/uL [facility] Absolute Lymph Count 1,608 760 - 4,000 cells/uL [facility] Absolute [place] Count 187 160 - 1,200 cells/uL [facility] Absolute Eos Count 150 0 - 300 cells/uL [facility] Absolute Baso Count 75 0 - 100 cells/uL [facility] Segmented Neutrophils 46 36 - 66 % [facility] Lymphocytes 43(H) 19 - 40 % [facility] Monocytes 5 4 - 12 % [facility] Eosinophils 4(H) 0 - 3 % [facility] Basophils 2(H) 0 - 1 % [facility] WBC Estimate Low [facility] Platelet Estimate Normal [facility] RBC Morphology Abnormal [facility] Anisocytosis 1+ [facility] Blood 09/12/2021 9:41 AM CDT Narrative [facility] - 09/12/2021 11:28 AM CDT Release to patient->Immediate Yaquelin Barker [facility] ORDERABLES Mary iverson Result Performing Organization Address City/State/[facility] Co de Phone Number [facility] [address] [place] [address], documented in this encounter Visit Diagnoses Diagnosis Iron deficiency anemia, unspecified iron deficiency anemia type Vitamin D deficiency Unspecified vitamin D deficiency documented in this encounter Care Teams Jewelry Sales Relationship Specialty Start Date End Date Jacquie Fair, CUSTOMER SERVICE RECEPTIONIST, MECHANICAL ASSEMBLY [address] [facility], [address] [place] [address] PCP - General Advanced Practice Nurse 07/11/21 documented as of this encounter
--- OUTSIDE RECORDS SUMMARY | 2024-02-27 10:18 | XMS_ITS | Encounter Summary ---
Author Organization [facility] Address [address] [place] [address] Phone Care Team Providers Care Audiovisual Technician Name Role Phone Jacquie Fair APRN, CNP Primary Care Provid er Reason for Visit * Reason Comments Follow-up Encounter Details Date Type Department Care Team (Late st Contact Info) Description 12/05/2021 9:00 AM CDT Office Visit [facility] [address] [id number] Yaquelin Barker, PAC Iron deficiency anemia, unspecified [...] y.o. : 1985 Encounter Dept: MED ONC [facility] Encounter Date: 12/05/2021 Care Team: Current Providers PCP: Jacquie Fair APRN, CNP Encounter Provider: Yaquelin Barker PAC Referring Provider: Jacquie Fair APRN, CNP Physician Animal Control Specialist: Yaquelin Barker PAC PRIMARY PHYSICIAN: Jacquie Fair APRN, CNP PATIENT IDENTIFICATION: This is a very pleasant 36-year-old female. HISTORY OF PRESENT ILLNESS: The patient presents to the office today for a follow-up visit. [facility]ne[facility]. Repeat uterine ultrasound scheduled. She [...] * FOLIC ACID (FOLATE) (01/16/2022 8:08 AM INSPECTOR MULTIFOCAL LENS) Folate >20.00 >=5.90 ng/mL [facility] Blood 01/16/2022 8:08 AM INSPECTOR MULTIFOCAL LENS Narrative [facility] - 01/16/2022 3:15 PM INSPECTOR MULTIFOCAL LENS IS THE PATIENT REQUIRED TO BE FASTING FOR 12 HOURS?->No Release to patient->Immediate Yaquelin Barker PAC CHEMISTRY ORDERABLES Final Result Performing Organization Address City/[facility]/ZIP Co de Phone Number [facility] TOBACCO WRAPPING MACHINE [facility] Cancer Care [facility] [address] [place] [address], * (ABNORMAL) FERRITIN (01/16/2022 8:08 AM INSPECTOR MULTIFOCAL LENS) Ferritin 3(L) 11 - 307 ng/mL [facility] Blood 01/16/2022 8:08 AM INSPECTOR MULTIFOCAL LENS Narrative [facility] - 01/16/2022 3:15 PM INSPECTOR MULTIFOCAL LENS Release to patient->Immediate Yaquelin Barker PAC CHEMISTRY ORDERABLES Final Result [facility] [address] [place] [address], [place] [phone] * (ABNORMAL) IRON W/ IRON BINDING CAPACITY [place] (01/16/2022 8:08 AM INSPECTOR MULTIFOCAL LENS) IRON 21(L) 50 - 212 ug/dL [facility] UIBC 318 155 - 355 ug/dL [facility] TIBC 339 261 - 478 ug/dl [facility] % Saturation 6(L) 20 - 50 % [facility] Blood 01/16/2022 8:08 AM INSPECTOR MULTIFOCAL LENS Narrative [facility] - 01/16/2022 8:57 AM INSPECTOR MULTIFOCAL LENS Release to patient->Immediate Yaquelin Barker PAC LAB SEND OUTS Final Resu lt [facility] [address] [place] [address], * (ABNORMAL) CMP (COMPREHENSIVE METABOLIC PANEL) (01/16/2022 8:08 AM INSPECTOR MULTIFOCAL LENS) Glucose 130(H) 70 - 105 mg/dL [facility] Blood Urea Nitrogen 6(L) 7 - 25 mg/dL [facility] Creatinine 0.9 0.6 - 1.2 mg/dL [facility] Sodium 141 136 - 145 mEq/L [facility] Potassium 3.9 3.5 - 5.1 mEq/L [facility] Chloride 106 98 - 107 mEq/L [facility] Bicarbonate 27 21 - 31 mEq/L [facility] Total Bilirubin 0.3 0.3 - 1.0 mg/dL [facility] Alk. Phosphatase 35 34 - 104 U/L [facility] Aspartate Aminotransferase 14 13 - 39 U/L [facility] Alanine Aminotransferase 7 7 - 52 U/L [facility] Total Protein 6.3(L) 6.4 - 8.9 g/dL [facility] Albumin 4.1 3.5 - 5.7 g/dL [facility] Calcium 9.2 8.6 - 10.3 mg/dL [facility] Anion Gap 11.9 7.0 - 15.0 mEq/L [facility] Globulin 2.2 2.0 - 3.5 g/dL [facility] EGFR 85 >60 ml/min/1. 73m2 [facility] Comment: This eGFR is calculated using 2020 CKD-EPI Creatinine equation without race modifier based on the NKF-ASN task force recommendations Blood 01/16/2022 8:08 AM INSPECTOR MULTIFOCAL LENS Narrative [facility] - 01/16/2022 8:57 AM INSPECTOR MULTIFOCAL LENS IS THE PATIENT REQUIRED TO BE FASTING FOR 8 HOURS?->No Release to patient->Immediate Yaquelin Barker PAC CHEMISTRY ORDERABLES Final Result [facility] [place] [address], documented in this encounter Visit Diagnoses Diagnosis Iron deficiency anemia, unspecified iron deficiency anemia type- Primary Menorrhagia with regular cycle Excessive or frequent menstruation Iron deficiency anemia, unspecified iron deficiency anemia type Menorrhagia with regular cycle Excessive or frequent menstruation Vitamin D deficiency Unspecified vitamin D deficiency documented in this encounter Care Teams Audiovisual Technician Relationship Specialty Start Date End Date Jacquie Fair, RADIATOR CORE TESTER, TURNTABLE WORKER [address], [address] [place] [address] PCP - General Advanced Practice Nurse 07/11/21 documented as of this encounter
--- OUTSIDE RECORDS SUMMARY | 2024-02-27 10:18 | XMS_ITS | Encounter Summary ---
Author Organization [facility] Address [address] [place] [address] Phone Care Team Providers Care Top Screw Name Role Phone Jacquie Fair APRN, CNP Primary Care Provid er Encounter Details Date Type Department Care Team (Late st Contact Info) Description 12/05/2021 8:55 AM CDT Lab [facility] [address] [address] Lab, Cc [facility] [...] 4.0 - 10.0 10*3/uL [facility] HGB 12.1 11.2 - 15.7 g/dL [facility] HCT 34.6 34.1 - 44.9 % [facility] PLT 287 163 - 369 10*3/uL [facility] MPV 9.4 9.4 - 12.4 fL [facility] RBC 4.02 3.93 - 5.22 10*6/uL [facility] MCV 86 79 - 95 fL [facility] MCH 30.1 25.6 - 32.2 pg [facility] [place] MCHC 35.0 32.2 - 36.5 g/dL [facility] RDW 12.4 11.6 - 14.4 % [facility] Neutrophils % 57.3 36.0 - 66.0 % [facility] Lymphocytes % 29.2 19.0 - 40.0 % [facility] Monocytes % 6.5 4.1 - 12.1 % [facility] Eosinophils % 5.6(H) 0.0 - 3.5 % [facility] Basophils % 1.2(H) 0.0 - 1.0 % [facility] Absolute Neutrophils 2.5 1.4 - 6.6 10*3/uL [facility] Absolute Lymphocytes 1.3 0.8 - 4.0 10*3/uL [facility] Absolute Monocytes 0.3 0.2 - 1.2 10*3/uL [facility] Absolute Eosinophils 0.2 0.0 - 0.4 10*3/uL [facility] Absolute Basophils 0.1 0.0 - 0.1 10*3/uL [facility] 12/05/2021 8:37 AM CDT Yaquelin Barker PAC LAB SEND OUTS Final Resu lt [facility] [address] [place] [address], * (ABNORMAL) CMP (COMPREHENSIVE METABOLIC PANEL) (12/05/2021 8:37 AM CDT) Glucose 105 70 - 105 mg/dL [facility] Blood Urea Nitrogen 10 7 - 25 mg/dL [facility] Creatinine 0.8 0.6 - 1.2 mg/dL [facility] Sodium 141 136 - 145 mEq/L [facility] Potassium 3.8 3.5 - 5.1 mEq/L [facility] Chloride 105 98 - 107 mEq/L [facility] Bicarbonate 27 21 - 31 mEq/L [facility] Total Bilirubin 0.4 0.3 - 1.0 mg/dL [facility] Alk. Phosphatase 30(L) 34 - 104 U/L [facility] Aspartate Aminotransferase 18 13 - 39 U/L [facility] Alanine Aminotransferase 17 7 - 52 U/L [facility] Total Protein 6.5 6.4 - 8.9 g/dL [facility] Albumin 4.4 3.5 - 5.7 g/dL [facility] Calcium 9.4 8.6 - 10.3 mg/dL [facility] Anion Gap 12.8 7.0 - 15.0 mEq/L [facility] Globulin 2.1 2.0 - 3.5 g/dL [facility] EGFR 98 >60 ml/min/1. 73m2 [facility] Comment: This eGFR is calculated using 2020 CKD-EPI Creatinine equation without race modifier based on the NKF-ASN task force recommendations Blood 12/05/2021 8:37 AM CDT Narrative [facility] - 12/05/2021 10:32 AM CDT IS THE PATIENT REQUIRED TO BE FASTING FOR 8 HOURS?->No Release to patient->Immediate Yaquelin Barker PAC CHEMISTRY ORDERABLES Final Result [facility] Cancer Care [address] [address], * IRON W/ IRON BINDING CAPACITY [place] (12/05/2021 8:37 AM CDT) IRON 91 50 - 212 ug/dL [facility] UIBC 214 155 - 355 ug/dL [facility] TIBC 305 261 - 478 ug/dl [facility] % Saturation 30 20 - 50 % [facility] Blood 12/05/2021 8:37 AM CDT [facility] - 12/05/2021 10:32 AM CDT Release to patient->Immediate Yaquelin Barker PAC LAB SEND OUTS Final Resu lt [facility] [address] [address], * FERRITIN (12/05/2021 8:37 AM CDT) Ferritin 13 11 - 307 ng/mL [facility] Blood 12/05/2021 8:37 AM CDT [facility] - 12/05/2021 1:56 PM CDT Release to patient->Immediate us Yaquelin Barker PAC CHEMISTRY ORDERABLES Final Result Performing Organization Address [facility]/ZIP Co de Phone Number [facility] [place] [address] [place] [address], [place] [phone] * VITAMIN B12 (12/05/2021 8:37 AM CDT) Vitamin B12 346 180 - 914 pg/mL [facility] Blood 12/05/2021 8:37 AM CDT [facility] - 12/05/2021 2:06 PM CDT Release to patient->Immediate us Yaquelin Barker PAC CHEMISTRY ORDERABLES Final Result Performing Organization Address [facility] Co de Phone Number [facility] [place] [address] [place] [address], [place] [phone] * FOLIC ACID (FOLATE) (12/05/2021 8:37 AM CDT) Folate >20.00 >=5.90 ng/mL [facility] Blood 12/05/2021 8:37 AM CDT [facility] - 12/05/2021 1:56 PM CDT IS THE PATIENT REQUIRED TO BE FASTING FOR 12 HOURS?->No Release to patient->Immediate us Yaquelin Barker PAC CHEMISTRY ORDERABLES Final Result Performing Organization Address City/[facility]/ZIP Co de Phone Number [facility] [place] [address] [place] [address], [place] [phone] documented in this encounter Visit Diagnoses Diagnosis Iron deficiency anemia, unspecified iron deficiency anemia type Menorrhagia with regular cycle Excessive or frequent menstruation documented in this encounter Care Teams Top Screw Relationship Specialty Start Date End Date Jacquie Fair, BRYANNA, BRAKE REPAIR SUPERVISOR [address] [facility], [address] [place] [address] PCP - General Advanced Practice Nurse 07/11/21 documented as of this encounter
--- OUTSIDE RECORDS SUMMARY | 2024-02-27 10:18 | XMS_ITS | Encounter Summary ---
Author Organization [employer] Care Team Providers Care Traffic Law Attorney Name Role Phone Jacquie Fair APRN, [...] on filedocumented in this encounter Care Teams Traffic Law Attorney Relationship Specialty Start Date End Date Jacquie Fair APRN, CNP [address] [facility], [address] [place] [address] PCP - General Advanced Practice Nurse 07/11/21 documented as of this encounter
--- OUTSIDE RECORDS SUMMARY | 2024-02-27 10:18 | XMS_ITS | Encounter Summary ---
Author Organization [facility] Address [address] [place] [address] Phone Care Team Providers Care Charge Account Identification Clerk Name Role Phone Jacquie Fair APRN, GAS ATTENDANT Primary Care Provid er Encounter Details Date Type Department Care Team (Late st Contact Info) Description 08/02/2021 3:45 PM CDT Lab [facility] [address] [place] [address] [address] [place] [address] Nurse, Cc Adrien Iron deficiency [...] Primary documented in this encounter Care Teams Charge Account Identification Clerk Relationship Specialty Start Date End Date Jacquie Fair APRN, GAS ATTENDANT [address] [facility], [address] [place] [address] PCP - General Advanced Practice Nurse 07/11/21 documented as of this encounter
--- OUTSIDE RECORDS SUMMARY | 2024-02-27 10:18 | XMS_ITS | Encounter Summary ---
Author Organization [facility] Address [address] [place] [address] Phone Care Team Providers Care Detective Bureau Chief Name Role Phone Jacquie Fair APRN, CNP Primary Care Provid er Reason for Visit * Reason Comments Iron Infusion * Episode Based Medications (Routine) - Authorized Specialty Diagnoses / Procedures Referred By Nir small Referred To Contact Diagnoses Iron deficiency anemia, unspecified iron deficiency anemia type Procedures EPOETIN ROBLES RETACRIT NON-ESRD 1000 [address] Josh Holm DO [address] [place] [address] Phone: tel: fax: [facility] [address] [address] Phone: tel: fax: Referral ID Status Reason Start Date Expiration Date V isits Requested Visits Authorized [id number] Authorized 08/04/2021 03/10/2023 1 1 Encounter Details Date Type Department Care Team (Latest Contact Info) Description 08/11/2021 1:00 PM CDT Clinical Support [facility] [address] [address] [facility] Iron deficiency anemia, unspecified iron deficiency anemia [...] mg documented in this encounter Care Teams Detective Bureau Chief Relationship Specialty Start Date End Date Jacquie Fair APRN, ORDNANCE KEEPER [address] [facility], [address] [place] [address] PCP - General Advanced Practice Nurse 07/11/21 documented as of this encounter
--- OUTSIDE RECORDS SUMMARY | 2024-02-27 10:20 | XMS_ITS | Continuity of Care Document ---
Author Organization [facility] Address [address] [facility] [address] [place] [address] Phone Care Team Providers Care Fellmongery Worker Name Role Phone Unavailable Unavailable Unavailable Advance Directives Directive Yes / No Effective Date File Name No Information Encounters Encounter Description Practice Location Reason(s) For Visit Diagnoses Date Provider Providers Copied on Encounter [facility], [address], [place], [place], [id number], [place] tel:[phone] Noteworthy Legacy Data No Information May-2 1 No Information Family History Family Member Type Diagnosis Age At Onset No Information Payers Payer name Insurance type Covered constitution party ID Authoriza tion(s) No Information Social History [...]
--- OUTSIDE RECORDS SUMMARY | 2024-02-27 10:21 | XMS_ITS | Encounter Summary ---
Author Organization [facility] Address [address] [place] [address] Phone Care Team Providers Care Medical Sales Name Role Phone Jacquie Fair MD Primary Care Provider [phone]- [phone] Reason for Visit * Diagnostic Imaging (Routine) - Closed Specialty Diagnoses / Procedures Referred By Nir small Referred To Contact Diagnoses Endometrial polyp Cyst of ovary, unspecified laterality Procedures US Pelvis Complete Bethany Martin MD [address] [address] Phone: tel: fax: [facility] (All Locations) Referral ID Status Reason Start Date Expiration Date Visits Re quested Visits Authorized [id number] Closed 11/25/2023 12/24/2024 1 1 Encounter Details Date Type Department Care Team (Latest Contact Info) Description 12/20/2023 3:15 PM CDT Ancillary Procedure [facility] Obstetrics and Gynecology [address] [place] [address] [place] [address] Endometrial polyp; Cyst of ovary, unspecified laterality Social History Tobacco Use Types Packs/Day Years Used Date Smoking Tobacco: Some Days Cigarettes 0.2 1 AUDIT-C Answer Date Recorded Q1: How often do you have a drink containing alc ohol? 2-4 times a month 08/03/2022 Q2: How many drinks containi ng alcohol do you have on a typical day when you are drinking? 1 or 2 08/03/2022 Q3: How often do you have si x or more drinks on one occasion? Never 08/03/2022 Personal Safety Answer Date Recorded Have you ever been in or are you currently in a harmful physical or emotional relationship or is someone making you feel afraid or unsafe? 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 Not on file Not on file Not on file documented as of this encounter Plan of Treatment Not on file documented as of this encounter Procedures Procedure Name Priority Date/Time Associated Diagnosis Comments US PELVIS COMPLETE Schedule Routine, Read Routine (OP Routine) 12/20/2023 2:51 PM CDT Endometrial polyp Cyst of ovary, unspecified laterality documented in this encounter Results * US Pelvis Complete (12/20/2023 2:51 PM CDT) Cul de Sac No free fluid visualized VIEWPOINT Endometrial Thickness 4.6 mm&millim eters VIEWPOINT Anatomical Region Laterality Modality Pelvis N/A Ultrasound 12/20/2023 2:51 PM CDT Impressions 12/20/2023 4:27 PM CDT 38 yo who presents for pelvic US. The uterus is anteverted and normal in size and contour. The endometrium measures 4.6 mm. There is a niche in the anterior uterine wall suggestive of prior section. The right ovary is normal in size and appearance. The left ovary is notable for an approximately 2.2 cm cystic structure with diffuse echogenicity and posterior sound attenuation. This is likely suggestive of a small dermoid cyst, ORADS-2. There are no other pelvic or adnexal masses. There is no pelvic free fluid. Narrative Procedure Note Jelena Carlson MD - 12/20/2023 IMPRESSION: 38 yo who presents for pelvic US. The uterus is anteverted and normal insize and contour. The endometrium measures 4.6 mm. There is a niche in theanterior uterine wall suggestive of prior section. The rightovary is normal in size and appearance. The left ovary is notable for anapproximately 2.2 cm cystic structure with diffuse echogenicity andposterior sound attenuation. This is likely suggestive of a small dermoidcyst, ORADS-2. There are no other pelvic or adnexal masses. There is nopelvic free fluid. Result [facility] Bethany Martin MD IMG US PROCEDURES Final Result documented in this encounter Visit Diagnoses Diagnosis Endometrial polyp Polyp of corpus uteri Cyst of ovary, unspecified laterality documented in this encounter Care Teams Medical Sales Relationship Specialty Start Date End Date Jacquie Fair MD [address] [place] [address] PCP - General Nurse Practitioner 01/31/22 documented as of this encounter
--- OUTSIDE RECORDS SUMMARY | 2024-02-27 10:21 | XMS_ITS | Referral Summary ---
Author Organization [facility] [address] [place] [address] Care Team Providers Care Motel Front Desk Clerk Name Role Phone Jacquie Fair MD Primary Care Provider [phone]- [phone] Encounters Date Type Department Care Team Description 12/20/2023 3:15 PM CDT Ancillary Procedure [facility] Obstetrics and Gynecology [address] [place] [address] [place] [address] Endometrial polyp; Cyst of ovary, unspecified laterality from Last 3 Months Allergies Active Allergy Reactions Criticality Noted Date Comments Adhesive Rash Medium 07/09/2022 Adhesive on heart monitors Cephalosporins Diarrhea,Vomiting High 02/28/2021 Toxic Megacolon and Cdiff) Latex Rash Medium 12/04/2017 Methylprednisolone Diarrhea,Vomiting Medium 04/13/2022 Vomiting, diarrhea Medications albuterol HFA (PROVENTIL HFA,VENTOLIN HFA,PROAIR HFA) 90 mcg/actuation inhaler Inhale 1 puff every 4 (four) hours as needed for wheezing or shortness of breath 2 Active acetaminophen (TYLENOL) 500 mg tablet Take 2 tablets (1,000 mg total) by mouth every 6 (six) hours as needed for pain 30 tablet 3 Active Additional Information Patient not taking.Reported on 11/20/2023 fludrocortisone 0.1 mg tablet Take 1 tablet (0.1 mg total) by mouth 2 (two) times a day 60 tablet 11 4 09/04/20 25 Active poojcbol-neuv-h in-folic acid 18-0.4 mg tablet Take by mouth Active PARoxetine (PAXIL) 10 mg tablet Take 1 tablet (10 mg total) by mouth every morning 30 tablet 2 Active Active Problems Problem Noted Date Diagnosed Date Syncope and collapse 10/27/2023 Orthostatic hypotension 10/21/2023 Menorrhagia with regular cycle 06/26/2022 Unwanted fertility 06/26/2022 Resolved Problems Problem Noted Date Diagnosed Date Resolved Date Fibroids 06/26/2022 12/20/2023 Social History Tobacco Use Types Packs/Day Years Used Date Smoking Tobacco: Some Days Cigarettes 0.2 1 Tobacco Cessation:Ready to Q uit: Not Asked; Counseling Given: Not Answered AUDIT-C Answer Date Recorded Q1: How often [...] Date Job End Date 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 Not on file Not on file Not on file Last Filed Vital Signs Vital Sign Reading Time Taken Comments Blood Pressure 100/60 11/20/2023 1:07 PM CDT Pulse 83 10/21/2023 3:14 PM CDT Temperature 36.3 ??C (97.3 ??F) 06/03/2023 7:32 AM CD T Respiratory Rate 12 06/03/2023 11:54 AM CDT Oxygen Saturation 100% 10/21/2023 3:14 PM CDT Inhaled Oxygen Concentration - - Weight 41.7 kg (92 lb) 11/20/2023 1:07 PM CDT Height 157.5 cm (5' 2 ) 11/20/2023 1:07 PM CDT Body Mass Index 16.83 11/20/2023 1:07 PM CDT Plan of Treatment Not on file Procedures Procedure Name Priority Date/Time Associated Diagnosis Comments US PELVIS COMPLETE Schedule Routine, Read Routine (OP Routine) 12/20/2023 2:51 PM CDT Endometrial polyp Cyst of ovary, unspecified laterality HIGH RISK HPV DNA DETECTION WITH GENOTYPING Routine 11/20/2023 2:12 PM CDT Cervical cancer screening from Last 3 Months or Most Recently Relevant to Health Maintenance Results * US Pelvis Complete (12/20/2023 2:51 [...] adnexal masses. There is nopelvic free fluid. Bethany Martin MD [facility] [place]ED[place] Final Result * High Risk HPV DNA Detection with Genotyping (Molecular component) (11/20/2023 2:12 PM CDT) Pathologist [facility] HPV HR [address] [facility] HPV HR 18 Not Detected Not Detected [facility] HPV HR Non 16/18 Not Detected Not Detected [facility] Comment: Interpretive Data Nucleic acid amplification for detection of high-risk Human Papilloma virus (HPV) is performed by the [address] HPV test. ??This assay specifically detects HPV-16 and HPV-18 genotypes. ??The following HPV genotypes are detected as high-risk HPV: ?? HPV-31, 33, 35, ,39, 45, 51, 52, 56, 58, 59, 66, and 68. ??This assay has been approved by the [place] Food and Drug Administration for detection of HPV in cervical specimens collected by a physician using an endocervical brush/spatula or cervical broom and placed in the ThinPrep Pap Test PreservCyt collection containers. ??The performance characteristics of this test have been verified by the [facility] Molecular Infectious Disease laboratory. Correlate with separately reported cytology results, as applicable. Interpretive data last revised 22 Endocervical 11/20/2023 2:12 PM CDT 11/21/2023 2:59 PM CDT Narrative [facility] - 11/22/2023 12:32 AM CDT Clinical history and diagnosis->none Number of vials->1 Testing type->Screening Last menstrual period (date if known)->10/26 Latisha Winkler NP LAB BODY FLUIDS AND STOOLS O RDERABLES Final Result [facility] Department [place] [address] [facility] from Last 3 Months or Most Recently Relevant to Health Maintenance Insurance [facility] CLAIMS [facility] CLAIMS [facility] CLAIMS [employer] CLAIMS Care Teams Motel Front Desk Clerk Relationship Specialty Start Date End Date Jacquie Fair MD [address] [place] [address] PCP - General Nurse Practitioner 01/31/22
--- OUTSIDE RECORDS SUMMARY | 2024-02-27 10:22 | XMS_ITS | Encounter Summary ---
Author Organization [facility] Address [address] [place] [address] Care Team Providers Care Extrusion Engineer Name Role Phone Jacquie Fair MD Primary Care Provider +1- [phone] Reason for Referral * Diagnostic Imaging (Routine) - Closed Specialty Diagnoses / Procedures Referred By Contac t Referred To Contact Diagnoses Endometrial polyp Cyst of ovary, unspecified laterality Procedures US Pelvis Complete Bethany Martin MD [address] [place], [place] [address] [place] [address] Phone: tel: fax: [facility] (All Locations) Referral ID Status Reason Start Date Expiration Date Visits Re quested Visits Authorized [id number] Closed 11/25/2023 12/24/2024 1 1 Encounter Details Date Type Department Care Team (Late st Contact Info) Description 11/25/2023 Orders Only [facility] [place] [address] Bethany Martin MD [address] [place], [place] [address] [place] [address] Endometrial polyp (Primary Dx); Cyst of ovary, unspecified laterality Social History [...] Date Job End Date 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 Not on file Not on file Not on file documented as of this encounter Plan of Treatment Not on file documented as of this encounter Results * US Pelvis Complete [...] masses. There is nopelvic free fluid. Result [facility] Yelena Martin MD IMG US PROCEDURES Final Result documented in this encounter Visit Diagnoses Diagnosis Endometrial polyp- Primary Polyp of corpus uteri Cyst of ovary, unspecified laterality Endometrial polyp Polyp of corpus uteri Cyst of ovary, unspecified laterality documented in this encounter Care Teams Extrusion Engineer Relationship Specialty Start Date End Date Jacquie Fair MD [address] [facility] [address] [place] [address] PCP - General Nurse Practitioner 01/31/22 documented as of this encounter
--- OUTSIDE RECORDS SUMMARY | 2024-02-27 10:22 | XMS_ITS | Encounter Summary ---
Author Organization [facility] Healthcare Address [address] [place] [address] Care Team Providers Care Doper Operator Name Role Phone Jacquie Fair MD Primary Care Provider [phone]- [phone] Reason for Referral * Diagnostic Imaging (Routine) - Authorized Specialty Diagnoses / Procedures Referred By Nir small Referred To Contact Diagnoses Pelvic and perineal pain Dyspareunia in female Bilateral ovarian cysts Intramural uterine fibroid Procedures US Pelvis W Endovaginal Bethany Matrin MD 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 * Diagnostic Imaging (Routine) - Closed Specialty Diagnoses / Procedures Referred By Nir small Referred To Contact Diagnoses Pelvic and perineal pain Dyspareunia in female History of section Procedures US Pelvis W Endovaginal Latisha Winkler, TRICIA Phone: tel: fax: [facility] Referral ID Status Reason Start Date Expiration Date Visits Re quested Visits Authorized [id number] Closed 11/20/2023 12/19/2024 1 1 Encounter Details Date Type Department Care Team (Latest Contact Info) Description 11/21/2023 9:30 AM CDT Clinical Support [facility] [address] [address] Pelvic and perineal pain (Primary Dx); Dyspareunia in female; Bilateral ovarian cysts; Intramural uterine fibroid; Dyspareunia in female; History of section Social History Tobacco Use Types Packs/Day Years [...] Date Job End Date 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 Not on file Not on file Not on file documented as of this encounter Plan of Treatment Not on file documented as of this encounter Procedures Procedure Name Priority Date/Time Associated Diagnosis Comments US PELVIS W ENDOVAGINAL Schedule Routine, Read Routine (OP Routine) 11/21/2023 10:43 AM CDT Pelvic and perineal pain Dyspareunia in female Bilateral ovarian cysts Intramural uterine fibroid documented in this encounter Results * US Pelvis W Endovaginal (11/21/2023 10:43 AM CDT) Anatomical Region Laterality Modality Pelvis N/A Ultrasound Narrative 11/26/2023 6:52 PM CDT Images from the original result were not included. Indication: pelvic pain, dyspareunia Exam: Transvaginal / Transabdominal. ??Transvaginal required to try to better characterize endometrium Uterine position: Anteverted Uterus size in cm: 7.7 x 5.7 x 5.1 Endometrium in mm: 10.4 - ill defined borders - hyperechoic lesion with a vascular stalk was seen and measured--possible polyp Fibroids in mm: 1: 33 x 26 x 25 - intramural, anterior Right Ovary size in cm: 3.8 x 2.4 x 1.5 ?Cyst present: solid appearing, avascular cyst ?Size of cyst in mm: 14 x 9 x 13 Left Ovary size in cm: 3.5 x 2.8 x 2.4 ?Cyst present: hyperechoic, solid appearing cyst. ?Size of cyst in mm: 30 x 22 x 25 Free Fluid: no Impression Uterus appears globular and heterogenous. The endometrial borders are ill defined. This is suspicious for adenomyosis. An intramural fibroid was noted, described above. A hyperechoic lesion with a vascular stalk was noted within the endometrium, likely endometrial polyp. Blood flow was noted in each ovary. An isoechoic, solid appearing lesion was seen on the right ovary. A hyperechoic lesion was noted on the left ovary, suspicious for teratoma. Adnexa is unremarkable. No free fluid seen. Consider SIS and WashU US to better characterise ovaries Bethany Martin MD us Bethany Martin MD IMG US PROCEDURES Edited Result - Final documented in this encounter Visit Diagnoses Diagnosis Pelvic and perineal pain- Primary Dyspareunia in female Bilateral ovarian cysts Other and unspecified ovarian cyst Intramural uterine fibroid Dyspareunia in female History of section Other postprocedural status documented in this encounter Orders Imaging Orders Without Results Count Last Order ed Date First Ordered Date US PELVIS W ENDOVAGINAL 1 12/24/2023 documented in this encounter Care Teams Doper Operator Relationship Specialty Start Date End Date Jacquie Fair MD [address] [place] [id number] PCP - General Nurse Practitioner 01/31/22 documented as of this encounter
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
--- OUTSIDE RECORDS SUMMARY | 2024-02-27 10:22 | XMS_ITS | Encounter Summary ---
Author Organization [facility] Healthcare Address [address] [place] [address] Care Team Providers Care Host Coordinator Name Role Phone Jacquie Fair MD Primary Care Provider +1- [phone] Reason for Visit * Reason Onset Date Comments REVIEW SCHEDULING COORDINATOR referral 07/16/2023 Encounter Details Date Type Department Care Team (Late st Contact Info) Description 07/16/2023 Telephone [facility] Rheumatology at [facility] [address] [place] [id number] Joi Clark REVIEW SCHEDULING COORDINATOR referral Social History Tobacco Use Types Packs/Day [...] Date Job End Date 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 Not on file Not on file Not on file documented as of this encounter Miscellaneous Notes * Telephone Encounter - Joi Clark - 07/16/2023 11:43 AM CDT Pt called to establish care with one of the rheumatologists. I told the pt that we will need an doctor to doctor referral, the last 2 office notes and the most recent labs faxed to the office and once we receive them we will review the records and call them to schedule. documented in this encounter Plan of Treatment Not on file documented as of this encounter Visit Diagnoses Not on filedocumented in this encounter Care Teams Host Coordinator Relationship Specialty Start Date End Date Jacquie Fair MD [address] [address] PCP - General Nurse Practitioner 01/31/22 documented as of this encounter
--- OUTSIDE RECORDS SUMMARY | 2024-02-27 10:22 | XMS_ITS | Encounter Summary ---
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 dose Given 06/03/2023 9:34 AM CDT 2 mg morphine injection 2 mg 2 mg, intravenous, Administer over 4 Minutes, Once, On Sat06/03/23 at 1108, For 1 dose Given 06/03/2023 11:12 AM CDT 2 mg ondansetron (ZOFRAN) injection 4 mg 4 mg, intravenous, Administer over 2 Minutes, Once, On Sat06/03/23 at 0921, For 1 dose Given 06/03/2023 9:34 AM CDT 4 mg sodium chloride 0.9% bolus 1,000 mL 1,000 mL, intravenous, at 1,000 mL/hr, Administer over 1 Hours, Once, On Sat06/03/23 at 0921, For 1 dose New Bag 06/03/2023 10:39 AM CDT 1,000 mL 1000 mL/hr documented in this encounter Discontinued Medications Medication Sig Discontinue Reason Start Date End Da te amitriptyline (ELAVIL) 25 mg tablet Take 2 tablets (50 mg total) by mouth nightly 08/28/2022 06/03/2023 cyanocobalamin (Vitamin B-12) 250 mcg tabletIndications:Preven tion of Vitamin B12 Deficiency Take 1 tablet (250 mcg total) by mouth early interventionist before breakfast 06/03/2023 ibuprofen (ADVIL,MOTRIN) 600 mg tablet Take 1 tablet (600 mg total) by mouth every 6 (six) hours as needed for pain 08/03/2022 06/03/2023 oxyCODONE (ROXICODONE) 5 mg immediate release tabletIndications:Pain Take 1 tablet (5 mg total) by mouth every 4 (four) hours as needed for pain 08/03/2022 06/03/2023 tranexamic acid (LYSTEDA) 650 mg tabletIndications:Heavy menstrual bleeding Take 2 tablets by mouth every 6-8 hrs (3 times a day) starting with onset of period for 5 days. 01/31/2022 06/03/2023 triamcinolone (KENALOG) 0.1 % creamIndications:Skin Inflammation Apply 1 g topically 2 (two) times a day 04/02/2022 06/03/2023 documented as of this encounter Historical Medications * This list may reflect changes made after this encounter. zolpidem (AMBIEN) 5 mg tablet Take 1 tablet (5 mg total) by mouth nightly as needed for sleep for sleep 05/28/2023 10/21/2023 amitriptyline (ELAVIL) 25 mg tablet Take 2 tablets (50 mg total) by mouth nightly 08/28/2022 06/03/2023 added in this encounter Active and Recently Administered Medications Times are shown in CDT. Scheduled Medication Order 06/01/2023 06/02/2023 06/03/2023 diphenhydrAMINE (BENADRYL) 50 mg/mL injection 25 mg (COMPLETED) 25 mg, intravenous, Administer over 2 Minutes, Once, On Sat06/03/23 at 0958, For 1 dose 0958 (Given - Provid er: Marley Ordonez RN) morphine injection 2 mg (COMPLETED) 2 mg, intravenous, Administer over 4 Minutes, Once, On Sat06/03/23 at 0921, For 1 dose 09 (Given - Provid er: Marley Ordonez RN) morphine injection 2 mg (COMPLETED) 2 mg, intravenous, Administer over 4 Minutes, Once, On Sat06/03/23 at 1108, For 1 dose 1112 (Given - Provid er: Marley Ordonez RN) ondansetron (ZOFRAN) injection 4 mg (COMPLETED) 4 mg, intravenous, Administer over 2 Minutes, Once, On Sat06/03/23 at 0921, For 1 dose 0934 (Given - Provid er: Marley Ordonez RN) sodium chloride 0.9% bolus 1,000 mL (COMPLETED) 1,000 mL, intravenous, at 1,000 mL/hr, Administer over 1 Hours, Once, On Sat06/03/23 at 0921, For 1 dose 1039 (New Bag - Prov ider: Marley Ordonez RN)1139 (Stopped - Provider: Marley Ordonez RN) PRN Medication Order 06/01/2023 06/02/2023 06/03/2023 ioversoL (OPTIRAY 350) syringe 100 mL (COMPLETED) 100 mL, intravenous, Once in imaging, contrast, Starting on Sat06/03/23 at 1020, For 1 dose 1025 (Contrast Given - Provider: Ronit Wade RT) documented in this encounter Care Teams Welding Machine Operator Plasma Arc Relationship Specialty Start Date End Date Jacquie Fair MD [address] [place] [id number] PCP - General Nurse Practitioner 01/31/22 documented as of this encounter
--- OUTSIDE RECORDS SUMMARY | 2024-02-27 10:22 | XMS_ITS | Encounter Summary ---
Author Organization [facility] Address [address] [place] [address] Care Team Providers Care Liquid Chlorine Operator Name Role Phone Jacquie Fair MD Primary Care Provider [phone] Encounter Details Date Type Department Care Team (Late st Contact Info) Description 08/10/2023 Orders Only [facility] Card[facility] [address] [facility] [address] [place] [address] Isac Allen MD [address] [place] [address] Syncope and collapse (Primary Dx) Social History Tobacco Use Types [...] Date Job End Date 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 Not on file Not on file Not on file documented as of this encounter Ordered Prescriptions Prescription Sig Dispense Quantity Refills Last Filled Start Date End Date midodrine (PROAMATINE) 5 mg tabletIndications: Symptomatic Orthostatic Hypotension Take 1 tablet (5 mg total) by mouth 3 (three) times a day 180 tablet 1 08/16/2023 10/21/2023 midodrine (PROAMATINE) 5 mg tabletIndications: Symptomatic Orthostatic Hypotension Take 1 tablet (5 mg total) by mouth 3 (three) times a day 180 tablet 1 08/10/2023 08/16/2023 documented in this encounter Progress Notes * Isac Allen MD - 08/10/2023 3:48 PM CDT Refill the midodrine and increase it to 5 t.i.d. Reviewed her echocardiogram which shows normal EF no severe valvular heart disease to explain her symptoms. Thirty day of MCT reviewed with the patient in detail No further episodes of syncope. Episode likely vasovagal/orthostatic Recommended excessive hydration especially in the summertime, salt intake. Monitoring should help. She will either drop off her a form to release for driving versus PDF in [employer] We will fill thatout and send it back * Mercedez Metzger MA - 08/10/2023 3:48 PM CDT Sent letter mailed out to pt documented in this encounter Miscellaneous Notes * Addendum Note - Mercedez Metzger MA - 08/10/2023 3:48 PM CDTAddended by: MERCEDEZ METZGER on: 08/16/2023 11:04 AM Modules accepted: Orders documented in this encounter Plan of Treatment Not on file documented as of this encounter Visit Diagnoses Diagnosis Syncope and collapse- Primary documented in this encounter Discontinued Medications Medication Sig Discontinue Reason Start Date End Da te midodrine (PROAMATINE) 5 mg tabletIndications:Symptom atic Orthostatic Hypotension Take 1 tablet (5 mg total) by mouth 2 (two) times a day 07/31/2023 08/10/2023 midodrine (PROAMATINE) 5 mg tabletIndications:Symptom atic Orthostatic Hypotension Take 1 tablet (5 mg total) by mouth 3 (three) times a day Reorder 08/10/2023 08/16/2023 documented as of this encounter Care Teams Liquid Chlorine Operator Relationship Specialty Start Date End Date Jacquie Fair MD [address] [address] PCP - General Nurse Practitioner 01/31/22 documented as of this encounter
--- OUTSIDE RECORDS SUMMARY | 2024-02-27 10:22 | XMS_ITS | Encounter Summary ---
Author Organization [facility] Healthcare Address [address] [place] [address] Care Team Providers Care Contact Center Team Lead Name Role Phone Jacquie Fair MD Primary Care Provider [phone]- [phone] Reason for Referral * Diagnostic Imaging (Routine) - Closed Specialty Diagnoses / Procedures Referred By Nir small Referred To Contact Diagnoses Pelvic and perineal pain Dyspareunia in female History of section Procedures US Pelvis W Endovaginal Latisha Winkler, TRICAI Phone: tel: fax: [facility] Referral ID Status Reason Start Date Expiration Date Visits Re quested Visits Authorized [id number] Closed 11/20/2023 12/19/2024 1 1 Reason for Visit * Reason Comments hormonal Well Women Visit Pelvic Pain Right side Encounter Details Date Type Department Care Team (Late st Contact Info) Description 11/20/2023 1:00 PM CDT Office Visit [facility] [address] [phone] Latisha Winkler, TECHNICAL DEVELOPER [address] [place] [id number] Encounter for gynecological examination (general) (routine) without abnormal findings (Primary Dx); Cervical cancer screening; Pelvic and perineal pain; Dyspareunia in female; History of section; PMDD (premenstrual dysphoric disorder) Social History Tobacco Use Types Packs/Day Years [...] Date Job End Date 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 Not on file Not on file Not on file documented as of this encounter Last Filed Vital Signs Vital Sign Reading Time Taken Comments Blood Pressure 100/60 11/20/2023 1:07 PM CDT Pulse - - Temperature - - Respiratory Rate - - Oxygen Saturation - - Inhaled Oxygen Concentration - - Weight 41.7 kg (92 lb) 11/20/2023 1:07 PM CDT Height 157.5 cm (5' 2 ) 11/20/2023 1:07 PM CDT Body Mass Index 16.83 11/20/2023 1:07 PM CDT documented in this encounter Ordered Prescriptions Prescription Sig Dispense Quantity Refills Last Filled Start Date End Date PARoxetine (PAXIL) 10 mg tablet Take 1 tablet (10 mg total) by mouth every morning 30 tablet 2 11/20/2023 documented in this encounter Progress Notes * Latisha Winkler, TECHNICAL DEVELOPER - 11/20/2023 1:00 PM CDT Well Woman Exam Chief Complaint Patient presents with hormonal Well Women Visit Pelvic Pain Right side Subjective: Shagufta Lamar is a 38 y.o. year old female who presents for a well woman exam. She complains of above . Health Maintenance Pap Smear: 2018 [facility] negative hpv Mammogram: n/a Colonoscopy: none Hx of abnormal Pap: yes, colpo, leep 2009 Type of Contraception: tubal surgery Hotflashes, night sweat [place], cyclical but not timing it noticed the change for several weeks then back to normal Mense q 28-50days Patient Active Problem List Diagnosis Menorrhagia with regular cycle Fibroids Unwanted fertility Orthostatic hypotension Syncope and collapse Histories Exceptional Needs Teacher/Menstrual Menstrual History: Menarche Age: 14 years Patient's last menstrual period was 10/27/2023 (exact date). Period Pattern: (!) Irregular Menstrual Flow: Light Menstrual Control: Panty liner Menstrual Control Change Freq (Hours): 3-4 times day Dysmenorrhea: None Sexual History: Sexual History Gender of sexual partners: Men Sexually Transmitted Infection History: None OB History 6 Para 3 Term 2 1 AB 3 Living 3 SAB 1 IAB Ectopic 2 Multiple Live Births 3 # Outcome Date GA Labor/2nd Weight Sex Type Anes PTL Lv A1 A5 1 Term 07/21/05 F Vag-Vacuum Living 2 Ectopic 2006 3 03/01/08 35w0d M CS-Unspec Living Complications: Cephalopelvic Disproportion 4 Ectopic 2008 5 Term 10/01/18 M Living 6 SAB 2020 D&C Obstetric Comments 2006 Ectopic spontaneously expelled out of the tube. 2008 Ectopic required left salpingectomy due to rupture. 02/2008 complicated by polyhydramnios, PTL. for FTP. Medical She has a past medical history of Delayed emergence from general anesthesia (2008) and Dysmenorrhea. She has no past medical history of Acute respiratory failure requiring reintubation ([facility]/HCC) (FORM[facility]LY [facility]), Awareness under anesthesia, Hard to intubate, Hematoma, Malignant hyperthermia, Motion sickness, Pneumothorax, PONV (postoperative nausea and vomiting), Postoperative delirium, Pseudocholinesterase deficiency, Seizures ([facility]), Sleep apnea, Spinal headache, or Stroke ([facility]). Surgical She has a past surgical history that includes Dilation and curettage of uterus (12/28/2020); Augmentation mammaplasty (06/14/2022); section; Cervical biopsy w/ loop electrode excision (2009); Other surgical history (2006); Tonsillectomy (1999); Nasal septum surgery (2009); laparoscopy (2005); and Ectopic surgery (2008). Family Her family history includes Diabetes in her brother; No Known Problems in her mother; Prostate cancer in her father. Social Patient reports that she has been smoking cigarettes. She has a 0.2 pack-year smoking history. She does not have any smokeless tobacco history on file. She reports current drug use. Drugs: Tobacco and Alcohol. Patient reports consuming alcoholic drinks , with a daily consumption of drinks. Patient denies daily consumption of 6 or more alcoholic drinks at one occasion. Meds Current Outpatient Medications: albuterol HFA (PROVENTIL HFA,VENTOLIN HFA,PROAIR HFA) 90 mcg/actuation inhaler, Inhale 1 puff every4 (four) hours as needed for wheezing or shortness of breath, Disp: , Rfl: fludrocortisone 0.1 mg tablet, Take 1 tablet (0.1 mg total) by mouth 2 (two) times a day, Disp: 60 tablet, Rfl: 11 wdrqiwaa-eqag-rzp-folic acid 18-0.4 mg tablet, Take by mouth, Disp: , Rfl: acetaminophen (TYLENOL) 500 mg tablet, Take 2 tablets (1,000 mg total) by mouth every 6 (six) hoursas needed for pain (Patient not taking: Reported on 11/20/2023), Disp: 30 tablet, Rfl: 0 PARoxetine (PAXIL) 10 mg tablet, Take 1 tablet (10 mg total) by mouth every morning, Disp: 30 tablet, Rfl: 2 Allergies Patient is allergic to cephalosporins, adhesive, latex, and methylprednisolone. Review of Systems Constitutional: Negative. HENT: Negative. Eyes: Negative. Respiratory: Negative. Cardiovascular: Negative. Gastrointestinal: Negative for abdominal pain, blood in stool, constipation, nausea and vomiting. Genitourinary: Negative for dysuria, frequency and hematuria. Musculoskeletal: Negative for back pain. Skin: Negative for rash. Neurological: Negative. Psychiatric/Behavioral: Negative for depression and substance abuse. The patient is not nervous/anxious. Objective: BP 100/60 (BP Location: Left arm, Patient Position: Sitting) Ht 157.5 cm (5' 2 ) Wt 92 lb (41.7kg) LMP 10/27/2023 (Exact Date) BMI 16.83 kg/m?? Physical Exam Constitutional: Raymundo simon ma Appearance: She is well-developed. HENT: Head: Normocephalic. Eyes: Pupils: Pupils are equal, round, and reactive to light. Pulmonary: Effort: Pulmonary effort is normal. Chest: Chest wall: No mass. Breasts: Right: No inverted nipple, mass, nipple discharge, skin change or tenderness. Left: No inverted nipple, mass, nipple discharge or tenderness. Abdominal: General: There is no distension. Palpations: Abdomen is soft. There is no mass. Tenderness: There is no abdominal tenderness. There is no rebound. Genitourinary: General: Normal vulva. Vagina: Normal. No vaginal discharge, erythema or bleeding. Cervix: Normal. Uterus: Normal. Adnexa: Right adnexa normal and left adnexa normal. Right: No mass, tenderness or fullness. Left: No mass, tenderness or fullness. Rectum: No external hemorrhoid. Musculoskeletal: General: Normal range of motion. Cervical back: Normal range of motion. Skin: General: Skin is warm and dry. Findings: No rash. Neurological: Mental Status: She is alert and oriented to person, place, and time. Psychiatric: Behavior: Behavior normal. Thought Content: Thought content normal. Health Maintenance Due Topic Date Due Depression Screening Never done Cervical Cancer Screening Never done Hepatitis C Screening Never done Pneumococcal vaccine <65 (1 of 2 - PCV) Never done Varicella Vaccines (1 of 2 - 13+ 2-dose series) Never done Hepatitis B Screening Never done Covid-19 Vaccine (3 - 2022- season) 2023 Influenza Vaccine (1) 11/10/2023 Assessment and Plan: Shagufta Lamar is a 38 y.o. female who presents for a well woman exam. Diagnoses and all orders for this visit: Encounter for gynecological examination (general) (routine) without abnormal findings (Primary) Cervical cancer screening - Pap and High Risk HPV and Genotyping (Cytology Component); Future - High Risk HPV DNA Detection with Genotyping (Molecular component); Future Pelvic and perineal pain - US Pelvis W Endovaginal; Future Dyspareunia in female Comments: ?? pelvic dysfunction due to multiple pelvic surgery, get sonogram if negative will consider PT Orders: - US Pelvis W Endovaginal; Future History of section - US Pelvis W Endovaginal; Future PMDD (premenstrual dysphoric disorder) Comments: hot flashes, night sweats, mood changes for 2years Other orders - PARoxetine (PAXIL) 10 mg tablet; Take 1 tablet (10 mg total) by mouth every morning Recommended screenings and preventive care discussed: Breast cancer: Self Breast Exams, Mammogram at 40: discussed and is needed annually. Please schedule Pap smear: discussed pap smears are needed every 3-5 years depending on HPV status. We will keep you up-to-date hemoccult cards: Recommended after age 45 will repeat every 3, 5,or 10 years depending on results Sexually transmitted disease screening: patient declined Diet and exercise discussed. Recommended 150 minutes of Exercise per week, balanced diet plan Calcium and vitamin D intake discussed. Recommend 1000- 2000 units of vit D daily All past family, medical, and social history were reviewed and updated in the EMR as well as current medications. Patient offered no further complaints and was in agreement with plan of care. Patient was advised to follow-up regarding the results of testing ordered in office today and that they should hear from us regarding the results in 2-3 business days, discussed benefits of MyChart in regard to patient experience. The patient was given the opportunity to have all questions answeredtoday and was in agreement with the plan of care. Patient advised to proceed to check-out and obtain AVS which contains basic summary of visit today. Patient agrees Latisha Winkler NP 11/20/2023 documented in this encounter Plan of Treatment Scheduled Orders Name Type Priority Associated Diagnoses Orde r Schedule US Pelvis W Endovaginal Imaging Routine Pelvic and perineal pain Dyspareunia in female History of section Expected: 11/20/2023, Expires: 11/19/2024 documented as of this encounter Results * High Risk HPV DNA Detection with Genotyping (Molecular component) (11/20/2023 2:12 PM CDT) HPV HR 16 Not Detected Not Detected [facility] HPV HR 18 Not Detected Not Detected EMILY CALDWELL HPV HR Non 16/18 Not Detected Not Detected EMILY CALDWELL Comment: Interpretive Data Nucleic acid amplification for [...] this test have been verified by the [facility] Molecular Infectious Disease laboratory. Correlate with separately reported cytology results, as applicable. Interpretive data last revised 22 Endocervical 11/20/2023 2:12 PM CDT 11/21/2023 2:59 PM CDT Narrative [facility] - 11/22/2023 12:32 AM CDT Clinical history and diagnosis->none Number of vials->1 Testing type->Screening Last menstrual period (date if known)->10/26 Latisha Winkler NP LAB BODY FLUIDS AND STOOLS O RDERABLES Final Result Performing Organization Address City/State/[facility] Co de Phone Number [facility] Department [place] [address] [facility] * Pap and High Risk HPV and Genotyping (Cytology Component) (11/20/2023 2:12 PM CDT) Thin prep (Pap test) 11/20/2023 2:12 PM CDT 11/20/2023 4:27 PM CDT Narrative PATHOLOGY [facility] - 11/26/2023 1:45 PM CDT EPIC results best viewed via link to PDF [facility] [place] [address] Note to Patients: This report may contain a detailed description of human tissue sent by a health care provider to the laboratory for pathologic evaluation. The content of this report is essential for diagnosis and may provide important critical findings. This information may be unfamiliar to patients to review without a medical professional present. It is advised that the patient review this report in the presence of a health care provider who can answer questions and explain the details. CYTOPATHOLOGY REPORT FINAL Patient Name: ??SHAGUFTA LAMAR Gender: ??F : ??1985 (Age: 38) Address: ??[address], [place], [place] ??[address] Hospital #: ??[id number] Service: ??NURSE COLLEGE Location: ?? Patient Type: ??[facility] SPECIMEN Taken: ??11/20/2023 Received: ??11/20/2023 Accessioned: ??11/21/2023 Reported: ??11/26/2023 Physician(s): ??Latisha Winkler, RN, TECHNICAL DEVELOPER ?? FINAL INTERPRETATION SOURCE OF SPECIMEN ? Liquid based Thin Prep pap with HPV: STATEMENT OF ADEQUACY ?- Satisfactory for evaluation ?- Endocervical cells/transformation zone sample absent ? GENERAL CATEGORIZATION: ?- Negative for squamous intraepithelial lesion or malignancy ? Comments (Normal-Negative for High Risk HPV) HPV HR 16- Not detected HPV HR 18-Not detected HPV HR non 16/18- Not detected Interpretive Data Nucleic acid amplification for detection of high-risk Human Papilloma virus (HPV) is performed by the [address]00 HPV test. This assay specifically detects HPV- 16 and HPV-18 genotypes. The following HPV genotypes are detected as high-risk HPV: HPV-31, 33, 35, 39, 45, 51, 52, 56, 58, 59, 66, and 68. This assay has been approved by the [place] Food and Drug Administration for detection of HPV in cervical specimens collected by a physician using an endocervical brush/spatula or cervical broom and placed in the ThinPrep Pap Test PreservCyt collection containers. The performance characteristics of this test have been verified by the [facility] Molecular Infectious Disease laboratory. Correlate with reported cytology results, as applicable. Interpretive data last revised 22 barbara/11/26/2023 13:45 LISA Baeza(ASCP) Report Electronically Reviewed and Signed Out By LISA Baeza(ASCP) 11/26/2023 13:45:10 Cervicovaginal Cytology (Pap Test) Disclaimer: The Pap test is a screening test used to detect cervical cancer and its precursors; it is not a diagnostic procedure. False negative and false positive results do occur. Pap test results should be interpreted in the context of pertinent clinical information and biopsy results as indicated. [facility] Clinical Laboratory Improvement Amendments (CLIA) mandate that cytologic and histologic results be correlated for laboratory quality audit representative & improvement standards. ??FOR ALL HIGH-GRADE CASES we request submission of follow-up histological material and/or reports that have not been previously provided so that we may fulfill said required standards. ?? Gross Description A. ??Liquid based Thin Prep pap with HPV: ??Cervical/vaginal - Screening ThinPrep Clinical Diagnosis and History Last Menstrual Period: 10/26 None given Report Images and scanned documents, if included only viewable in PDF version The performance characteristics of some immunohistochemical stains, in-situ hybridization and fluorescence in-situ hybridization tests and immunophenotyping by flow cytometry cited in this report (if any) were determined by the Surgical Pathology Department at [facility] as part of an ongoing software quality assurance specialist program and in compliance with federally mandated regulations drawn from the Clinical Laboratory Improvement Act of 1988 (CLIA '88). ??Some of these tests rely on the use of analyte specific reagents and are subject to specific labeling requirements by the [place] Food and Drug Administration. ??Such diagnostic tests may only be performed in a facility that is certified by the Department of Health and Human Services as a high complexity laboratory under CLIA '88. ??The FDA has determined that such clearance or approval is not necessary. ??This test is used for clinical purposes. ??It should not be regarded as investigational or for research. ??Nevertheless, federal rules concerning the medical use of analyte specific reagents require that the following disclaimer be attached to the report: This test was developed and its performance characteristics determined by the Surgical Pathology Department of [facility]. ??It has not been cleared or approved by the [place]. S. Food and Drug Administration. Latisha Winkler NP LAB CYTOLOGY ORDERABLES Mary iverson Result PATHOLOGY [facility] 3rd Floor [place], [place] [phone] documented in this encounter Visit Diagnoses Diagnosis Encounter for gynecological examination (general) (routine) without abnormal findings- Primary Cervical cancer screening Screening for malignant neoplasm of the cervix Pelvic and perineal pain Dyspareunia in female History of section Other postprocedural status PMDD (premenstrual dysphoric disorder) Premenstrual tension syndromes Cervical cancer screening Screening for malignant neoplasm of the cervix documented in this encounter Historical Medications * This list may reflect changes made after this encounter. mdxoutzi-avig-zdh- folic acid 18-0.4 mg tablet Take by mouth added in this encounter Care Teams Contact Center Team Lead Relationship Specialty Start Date End Date Jacquie Fair MD [address] [facility] [address] [place] [id number] PCP - General Nurse Practitioner 01/31/22 documented as of this encounter
--- OUTSIDE RECORDS SUMMARY | 2024-02-27 10:22 | XMS_ITS | Encounter Summary ---
Author Organization [facility] Healthcare Address [address] [place] [address] Care Team Providers Care Marble Cutter Operator Name Role Phone Jacquie Fair MD Primary Care Provider +1- [phone] Reason for Visit * Cardiology (Routine) - Closed Specialty Diagnoses / Procedures Referred By Contmarcella t Referred To Contact Diagnoses Syncope and collapse Procedures [facility] Mobile Cardiac Telemetry Event Monitor Isac Allen MD [address] [place] [address] Phone: tel: fax: [facility] Referral ID Status Reason Start Date Expiration Date Visits Re quested Visits Authorized [id number] Closed 07/05/2023 08/03/2024 1 1 Encounter Details Date Type Department Care Team (Latest Contact Info) Description 07/05/2023 3:45 PM CDT Ancillary Procedure [facility] Cardiology [address] [place] [phone] Syncope and collapse Social History Tobacco Use Types Packs/Day Years [...] Job End Date 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 Not on file Not on file Not on file documented as of this encounter Plan of Treatment Pending Results Name Type Priority Associated Diagnoses Date /Time [facility] Mobile Cardiac Telemetry Event Monitor Cardiac Services Routine Syncope and collapse 07/05/2023 3:42 PM CDT documented as of this encounter Visit Diagnoses Diagnosis Syncope and collapse documented in this encounter Care Teams Marble Cutter Operator Relationship Specialty Start Date End Date Jacquie Fair MD [address] [address] PCP - General Nurse Practitioner 01/31/22 documented as of this encounter
--- OUTSIDE RECORDS SUMMARY | 2024-02-27 10:22 | XMS_ITS | Encounter Summary ---
Author Organization [facility] Healthcare Address [address] [place] [address] Care Team Providers Care Psychiatric Tech Name Role Phone Jacquie Fair MD Primary Care Provider [phone] Reason for Visit * Auth/Cert (Routine) Specialty Diagnoses / Procedures Referred By Nir small Referred To Contact Diagnoses Menorrhagia with regular cycle Fibroids Unwanted fertility Menorrhagia with regular cycle [N92.0] Fibroids [D21.9] Unwanted fertility [Z30.09] Procedures CO LAPAROSCOPY W/RMVL ADNEXAL STRUCTURES CO HYSTEROSCOPY DIAGNOSTIC SEPARATE PROCEDURE CO HYSTEROSCOPY REMOVAL LEIOMYOMATA CO HYSTEROSCOPY ENDOMETRIAL ABLATION LAPAROSCOPIC SALPINGECTOMY HYSTEROSCOPY DIAGNOSTIC HYSTEROSCOPIC MYOMECTOMY - MYOSURE ABLATION UTERINE - NOVASURE Referral ID Status Reason Start Date Expiration Date Visits Re quested Visits Authorized [id number] 1 1 Encounter Details Date Type Department Care Team (Late st Contact Info) Description 08/03/2022 7:30 AM CDT - 08/03/2022 10:00 AM CDT Surgery [facility] Operating Room [address] [place] [address] Bethany Martin MD [address] [place] [address] DR Stephanie MARKHAM [address] [place] [id number] LAPAROSCOPIC SALPINGECTOMY Surgery Details Date/Time Status Location OR Service Patient Class Case Cl ass Case Type Trauma Case? 08/03/2022 7:30 AM Posted [facility] OR POD 1 [id number] Obstetrics / Gynecology Outpatient Elective Panel 1 Procedure LRB Anes Op Region Wound Class Comments LAPAROSCOPIC SALPINGECTOMY Right General Abdomen Cla ss I - Clean HYSTEROSCOPIC MYOMECTOMY - MYOSURE N/A General Vagina Class II - Clean Contaminated ABLATION UTERINE - NOVASURE N/A General Vagina Class II - Clean Contaminated Surgeon Surgeon Role Service Panel Blaze-Bethany Byrd MD Primary Obstetri cs / Gynecology 1 Dayanna Tobar MD Assisting Obstetrics / Gyne cology 1 Case Notes 06/26- moving to 08/03 per juliana via phone call.ef Special Needs Novasure, Myosure and Ligasure: NO REP WILL BE AVAILABLE FOR THIS CASE. documented in this encounter Social History Tobacco Use Types Packs/Day Years [...] making you feel afraid or unsafe? 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 Not on file Not on file Not on file documented as of this encounter Last Filed Vital Signs Vital Sign Reading Time Taken Comments Blood Pressure 108/74 08/03/2022 10:00 AM CDT Pulse 77 08/03/2022 10:00 AM CDT Temperature 35.7 ??C (96.3 ??F) 08/03/2022 10:00 AM C DT Respiratory Rate 18 08/03/2022 10:00 AM CDT Oxygen Saturation 100% 08/03/2022 10:00 AM CDT Inhaled Oxygen Concentration - - Weight 43.1 kg (95 lb) 07/09/2022 12:50 PM CDT Height 157.5 cm (5' 2 ) 07/09/2022 12:50 PM CDT Body Mass Index 17.38 07/09/2022 12:50 PM CDT documented in this encounter Discharge Instructions * Discharge Instructions* Dayanna Tobar MD - 08/03/2022 6:33 AM CDT Discharge Instructions Call Your Doctor If: * You have a fever of 100.4 degrees or higher. * You have heavy vaginal bleeding where you are soaking more than 1 maxi pad each hour. * You are passing large blood clots (larger than an egg). * You have a strong foul odor or discharge coming from your vagina. * You have burning, pain or difficulty urinating. * You have severe vomiting where you are unable to keep down liquids or medications. * You have pain that is not relieved with the medications provided. Diet: * Continue your regular diet. Activity: * No driving for 24 hours or while taking narcotics. * Nothing in the vagina until cleared by your doctor. Medication: *Take over the counter Tylenol or Ibuprofen as needed for pain. Normal changes after surgery: * Vaginal spotting is common * You may notice watery discharge, this is normal. Follow Up: * It???s important to keep your follow up appointment. * If you need to make changes, please call the office to reschedule. * Attachments The following attachments cannot be sent through Care Everywhere. * [facility]WAY TO EXCELLENT CARE AFTER SURGERY documented in this encounter Medications at Time of Discharge acetaminophen (TYLENOL) 500 mg tablet Take 2 tablets (1,000 mg total) by mouth every 6 (six) hours as needed for pain 30 tablet 08/03/2022 albuterol HFA (PROVENTIL HFA,VENTOLIN HFA,PROAIR HFA) 90 mcg/actuation inhaler Inhale 1 puff every 4 (four) hours as needed for wheezing or shortness of breath 12/12/2021 cyanocobalamin (Vitamin B-12) 250 mcg tabletIndications: Prevention of Vitamin B12 Deficiency Take 1 tablet (250 mcg total) by mouth toe sewer before breakfast 4 ibuprofen (ADVIL,MOTRIN) 600 mg tablet Take 1 tablet (600 mg total) by mouth every 6 (six) hours as needed for pain 30 tablet 08/03/2022 4 oxyCODONE (ROXICODONE) 5 mg immediate release tabletIndications: Pain Take 1 tablet (5 mg total) by mouth every 4 (four) hours as needed for pain 10 tablet 08/03/2022 4 tranexamic acid (LYSTEDA) 650 mg tabletIndications: Heavy menstrual bleeding Take 2 tablets by mouth every 6-8 hrs (3 times a day) starting with onset of period for 5 days. 30 tablet 11 01/31/2022 4 triamcinolone (KENALOG) 0.1 % creamIndications:S kin Inflammation Apply 1 g topically 2 (two) times a day 04/02/2022 4 documented as of this encounter Ordered Prescriptions Prescription Sig Dispense Quantity Refills Last Filled Start Date End Date acetaminophen (TYLENOL) 500 mg tablet Take 2 tablets (1,000 mg total) by mouth every 6 (six) hours as needed for pain 30 tablet 08/03/2022 oxyCODONE (ROXICODONE) 5 mg immediate release tabletIndications: Pain Take 1 tablet (5 mg total) by mouth every 4 (four) hours as needed for pain 10 tablet 08/03/2022 4 ibuprofen (ADVIL,MOTRIN) 600 mg tablet Take 1 tablet (600 mg total) by mouth every 6 (six) hours as needed for pain 30 tablet 08/03/2022 4 documented in this encounter Discharge Disposition Disposition Code Departure Means Destination Comment s Discharge to home or self care documented in this encounter H&P Notes * Dayanna Tobar MD - 08/03/2022 6:26 AM CDT I have reviewed the H&P, examined the patient, and endorse the findings as written. 36 yo who presents for EUA, hysteroscopy, endometrial ablation, possible polyp or SMF resection and laparoscopic removal of tubes (already missing right one it seems based on story around ectopic, but will remove stumps/fimbria if identified) for abnormal uterine bleeding and leiomyoma on ultrasound. No longer desires fertility. Plan of Care : Based on the above findings, I consider Shagufta Lin to be an acceptable risk for : Procedure(s): LAPAROSCOPIC SALPINGECTOMY HYSTEROSCOPY DIAGNOSTIC HYSTEROSCOPIC MYOMECTOMY - MYOSURE ABLATION UTERINE - NOVASURE Cosigned by Bethany Martin MD at 08/03/2022 7:24 AM CDT Associated attestation - Bethany Martin MD - 08/03/2022 7:24 AM CDT I have seen and examined the patient on 08/03/22. I agree with the findings and plan of care as documented in the resident's/fellow's note.. Bethany Martin MD Source Note - Stephanie Harmon NP - 07/16/2022 12:03 PM CDT Images from the original note were not included. [facility] Preoperative Assessment and Planning Preoperative Evaluation Record Evaluation type/location: TPAP from [facility] Planned procedure site: [facility] PVT OR (Pod 1) Date: 07/16/22 NOTE: This note represents a preoperative evaluation initiated via telephone interview. NO PHYSICALEXAM was performed at the time of initial assessment. A physical exam may be added to this note anddocumented below. Anesthesia Evaluation Shagufta Lin is a 36 y.o. female Procedure(s): LAPAROSCOPIC SALPINGECTOMY HYSTEROSCOPY DIAGNOSTIC HYSTEROSCOPIC MYOMECTOMY - MYOSURE ABLATION UTERINE - NOVASURE Pre-Op Diagnosis Codes: * Menorrhagia with regular cycle [N92.0] * Fibroids [D21.9] * Unwanted fertility [Z30.09] HISTORY HPI 36 yr old female with excessive vaginal bleeding, pt with fibroids. Now being planned for laparoscopic salpingectomy with hysteroscopy and uterine ablation. Pt with PMH of POTS, anemia, fibromyalgia. Past Medical History Information obtained from: patient and chart. Neurological Pertinent negatives: seizures; neuromuscular disease; CVA/stroke; TIA; CEA; ICA stenosis; dementia/mild cognitive impairment; psychiatric history and carotid artery stent Comments: Pt reports in 2014-she had chiropractic neck adjustment and experienced left facial/arm numbness for 12 hrs, denies any facial drooping or weakness. Symptoms resolved and she did not seek any further treatment. Cardiovascular Pertinent negatives: hypertension ; CAD ; ID ; CABG ; systolic/diastolic dysfunction w/o CHF ; valvular heart disease; valve replacement; atrial fibrillation; arrhythmia; pacemaker/ICD; PVD; DVT/PE; negative for CHF; drug- eluting stent(s); bare metal stent(s); unknown stent(s) type; coronary angiopl asty and hyperlipidemia Comments: Pt reports she has POTS Respiratory + Asthma (allergy related, last use of inhaler 6 months ago) Dyspnea frequency: never. Rescue inhaler use: never. Hospitalizations/ER in the last year: 0. + Current smoker (1-3 per day cigarettes) - Counseled to abstain from smoking the day of surgery. Pertinent negatives: COPD; sleep apnea (MARIE); pulmonary hypertension; no O2 use outside the hospital; no history of oral steroid use and no prior intubation for respiratory failure due to asthma Hepatic / Heme + History of anemia (on iron infusions and OTC supp, pt sees cumulative effects analyst, last CBC in Care Everywhere 06/07/22=WNL) - iron deficiency Pertinent negatives: liver disease; history of thrombocytopenia and history of Felicita positive Gastrointestinal Pertinent negatives: GERD and hiatal hernia Renal / + Nephrolithiasis (had stones 10 yrs ago, passed without intervention) Pertinent negatives: renal disease and dialysis Musculoskeletal/Pain + Chronic pain (generalized) - fibromyalgia. Pertinent negatives: chronic opioid use; previous treatment for opioid use disorder; osteoarthritisand headaches Endocrine / Other Pertinent negatives: diabetes mellitus; thyroid disease; obesity (BMI >30); cancer history; rheumatological disease; transplanted organ; infectious disease; eye disorder and pancreatitis Functional Capacity Functional capacity: 4-6 METs Comments: Pt can walk 4 blocks and can climb 2 flights of stairs Does housework, yardwork Review of Systems + palpitations (occasional) + heavy menses + previous transfusion (pt has had multiple transfusions due to miscarriages, childbirth, last was in 2020, denies any reactions) + easy bruising (reports she bruises easily, but denies excessive bleeding) + dizziness (on standing, resolves after seconds) + chronic pain (generalized) + vision loss (wears corrective lenses) + diaphoresis (night sweats) Pertinent negatives: productive cough; wheezing; SOB; recent cold/flu; fever; chest pain; orthopnea; pedal edema; PND; transfusion reaction; melena/hematochezia; bleeding problems; syncope; muscle weakness; numbness/tingling; hard of hearing; heartburn; nausea; dysphagia; diarrhea; dentures/partials; chipped/loose teeth; abdominal pain and no unexpected weight change PAT Summary and Plans Cardiac risk classification of planned procedure: low cardiac risk. Preoperative assessment status: complete. Initial preoperative evaluation discussed with: Jalil Rivera MD Additional comments: Shagufta Lin is a 36 y.o. female who is being evaluated prior to undergoing a low cardiac risk surgery. Revised Cardiac Risk Index factors are (none) for a total RCRI of 0 out of6. Functional capacity is 4-6 METs. Obstructive sleep apnea (MARIE) screening status is STOP-BANG incomplete but suspected to be 0-2 suggesting low risk for MARIE. Neck circumference pending.. This assessment was performed via telephone. Therefore the physical exam has been deferred to the day of surgery team. The patient was provided with preoperative instructions for their medications. Patient instructions were provided by telephone and electronically sent via [facility]. Patient verbalized understanding of instructions. Blood bank needs for day of procedure: No type and screen needed Pending labs/tests include: POC Hcg Urine Case reviewed and discussed with CPAP attending, pt reports difficulty waking up from surgery in She states after salpingectomy for ectopic she woke up in ICU and was there for 5 hrs. Denies any prolonged intubation, unclear of events. She also notes she had blood loss at the time that required transfusion. She has had subsequent surgeries without any incident. TPAP complete. Preoperative evaluation performed by Stephanie Harmon NP on 07/16/22 at 12:46 PM. Patient Active Problem List Diagnosis ??? Menorrhagia with regular cycle ??? Fibroids ??? Unwanted fertility No past medical history on file. Past Surgical History: Procedure Laterality Date ??? AUGMENTATION MAMMAPLASTY 06/14/2022 ??? CERVICAL BIOPSY W/ LOOP ELECTRODE EXCISION 2009 ??? SECTION ??? DILATION AND CURETTAGE OF UTERUS 12/28/2020 For miscarriage ??? LAPAROSCOPY 2006 x2-2006, 2009 ??? NASAL SEPTUM SURGERY 2009 ??? OTHER SURGICAL HISTORY 2007 fallopian tube ??? TONSILLECTOMY 1999 OB History 6 Para 3 Term 2 1 AB 3 Living 3 SAB 1 IAB Ectopic 2 Multiple Live Births 3 Obstetric Comments 2006 Ectopic spontaneously expelled out of the tube. 2008 Ectopic required left salpingectomy due to rupture. 02/2008 complicated by polyhydramnios, PTL. for FTP. Allergies Allergen Reactions ??? Cephalosporins Diarrhea and Vomiting Toxic Megacolon and Cdiff) ??? Adhesive Rash Adhesive on heart monitors ??? Latex Rash ??? Methylprednisolone Diarrhea and Vomiting Vomiting, diarrhea Med List Status: Nurse Complete Set By: Salena Chung RN at 07/09/2022 12:47 PM Taking? Last Dose Start Date End Date Provider albuterol HFA (PROVENTIL HFA,VENTOLIN HFA,PROAIR HFA) 90 mcg/actuation inhaler More than a month 12/12/21 -- Sanket Paul MD cyanocobalamin (Vitamin B-12) 250 mcg tablet 07/09/2022 -- -- Sanket Paul MD ibuprofen (ADVIL,MOTRIN) 400 mg tablet Past Month -- -- Sanket aPul MD tranexamic acid (LYSTEDA) 650 mg tablet Past Week 01/31/22 -- Frida Arias MD Take 2 tablets by mouth every 6-8 hrs (3 times a day) starting with onset of period for 5 days. Patient taking differently: Take 1 tablet (650 mg total) by mouth as directed Take 2 tablets by mouth every 6-8 hrs (3 times a day) starting with onset of period for 5 days. triamcinolone (KENALOG) 0.1 % cream Past Week 04/02/22 -- Sanket Paul MD No current facility-administered medications for this encounter. Current Outpatient Medications: ??? cyanocobalamin (Vitamin B-12) 250 mcg tablet ??? ibuprofen (ADVIL,MOTRIN) 400 mg tablet ??? tranexamic acid (LYSTEDA) 650 mg tablet ??? triamcinolone (KENALOG) 0.1 % cream ??? albuterol HFA (PROVENTIL HFA,VENTOLIN HFA,PROAIR HFA) 90 mcg/actuation inhaler Social History Tobacco Use Smoking Status Some Days ??? Packs/day: 0.15 ??? Years: 1.00 ??? Pack years: 0.15 ??? Types: Cigarettes Smokeless Tobacco Not on file Vaping Use Vaping Status Never Used Alcohol Use: Not At Risk (07/09/2022) AUDIT-C ??? Frequency of Alcohol Consumption: 2-4 times a month ??? Average Number of Drinks: 1 or 2 ??? Frequency of Binge Drinking: Never Substance and Sexual Activity Drug Use Never No family history on file. There were no vitals filed for this visit. Relevant diagnostics: ECG(s): N/A Echocardiogram(s): Echo in Care Everywhere: The left ventricle is normal in size. The left ventricle is normal in thickness. Considering 2D visualization and technical calculations the left ventricular ejection fraction estimate is 60-65%. Right ventricle size and function is normal. Normal left and right atrial size. The interatrial septum appears intact with no evidence of an atrial septal defect. Injection of agitated saline documented no interatrial shunt with provocative maneuvers. There is trace mitral regurgitation. The right ventricle is normal in size. Normal right ventricular systolic function. Atria: ??The left atrium is normal in size. The right atrium is normal in size. The interatrial septum appears intact with no evidence of an atrial septal defect. There is no evidence of an interatrial shunt by color Doppler. Injection of agitated saline documented no interatrial shunt with provocative maneuvers. Mitral Valve: ??There is no evidence of mitral valve prolapse. There is trace mitral regurgitation. There is no evidence of mitral valve stenosis. Tricuspid Valve: ??The tricuspid valve leaflets are thin and pliable and the valve motion is normal. There is trace tricuspid regurgitation. The right??ventricular systolic pressure is estimated to be 25-30mmHg. Aortic Valve: ??The aortic valve is tri-leaflet. There is no aortic regurgitation noted. There is no evidence of aortic stenosis. Pulmonic Valve: ??The pulmonic valve leaflets are thin,??pliable and valve motion is normal. There is no pulmonic regurgitation noted. Great Vessels: ??The aortic root is normal. The proximal ascending aorta is normal in size. The inferior vena cava is dilated without respiratory collapse, indicating a right atrial pressure of approximately 15 mmHg. Stress test(s): N/A Cardiac catheterization(s): N/A PFT(s): N/A Vascular studies: N/A Other: MR brain Care everywhere 12/23/20: Normal unenhanced MR examination of the brain. CT brain 12/22/20 Care Everywhere 1. ??Small subcutaneous forehead hematoma, no underlying skull fracture or intracranial abnormalityis noted Chest xray 12/12/21 Care Everywhere . ??No evidence of acute cardiopulmonary disease. 2. ??No consolidation or volume loss. No pleural effusion or pneumothorax. Hyperinflation of both lungs versus deep inspiratory effort. 3. ??Normal heart size and pulmonary vascularity. Slight thoracolumbar curve. PT: No results found for requested labs within last 30 days. INR: No results found for requested labs within last 30 days. APTT: No results found for requested labs within last 30 days. Hgb A1C: No results found for requested labs within last 30 days. CBC RBC: No results found for requested labs within last 30 days. RDW: No results found for requested labs within last 30 days. MCHC: No results found for requested labs within last 30 days. MCH: No results found for requested labs within last 30 days. MCV: No results found for requested labs within last 30 days. Hct: No results found for requested labs within last 30 days. Hgb: No results found for requested labs within last 30 days. WBC: No results found for requested labs within last 30 days. MPV: No results found for requested labs within last 30 days. Platelets: No results found for requested labs within last 30 days. RDW CV: No results found for requested labs within last 30 days. RDW Sd: No results found for requested labs within last 30 days. BMP Glucose: No results found for requested labs within last 30 days. Calcium: No results found for requested labs within last 30 days. Sodium: No results found for requested labs within last 30 days. Potassium: No results found for requested labs within last 30 days. CO2: No results found for requested labs within last 30 days. Chloride: No results found for requested labs within last 30 days. BUN: No results found for requested labs within last 30 days. Creatinine: No results found for requested labs within last 30 days. Edy index score: 100 documented in this encounter Miscellaneous Notes * Op Note - Bethany Martin MD - 08/03/2022 8:06 AM CDT Images from the original note were not included. Operative Note Attending Surgeon: Bethany Martin MD Surgical Team: Surgeon(s) and Role: * Bethany Martin MD - Primary * EkaterinaDayanna oswald MD - Assisting DATE OF SURGERY : 08/03/2022 Preoperative Diagnosis: Pre-op Diagnosis * Menorrhagia with regular cycle [N92.0] * Fibroids [D21.9] * Unwanted fertility [Z30.09] Postoperative Diagnosis: Post-op Diagnosis * Menorrhagia with regular cycle [N92.0] * Fibroids [D21.9] * Unwanted fertility [Z30.09] Name of Operation: Procedure(s): LAPAROSCOPIC SALPINGECTOMY--right (left absent from ectopic) HYSTEROSCOPIC MYOMECTOMY - MYOSURE ABLATION UTERINE - NOVASURE Indication for Procedure: This is 36 y.o. with undesired future fertility, 2.7cm fibroid within the anterior uterine cavity and excessive bleeding in premenopausal period. The patient was appropriately counseled that the risks of bilateral tubal ligation include regret, bleeding, infection, injury to surrounding organs and risk of procedure failure. Alternative methodsof contraception were discussed including LARC. The patient still desired to proceed with the procedure. Consents had been signed at time of admission Operative Findings: EUA: Mobile, slightly enlarged, anteverted uterus Laparoscopic: Normal appearing uterus, normal appearing right fallopian tube, and normal bilateral ovaries, Normal appendix, Normal appearing liver, and Normal appearing upper abdomen. On hysteroscopy, normal appearing uterine cavity with patent appearing bilateral ostia. No left tube on l/S. Description Of Procedure After obtaining the appropriate operative consents, the patient was taken to the operating room, where SCDs were placed for VTE prophylaxis. General anesthesia was obtained without difficulty and found to be adequate. She was positioned in the dorsal lithotomy position in yellowfins and examined under anesthesia with the above operative findings. She was then prepped and draped in the normal sterile fashion. Brothers catheter was placed. A bivalvespeculum was placed in the patient's vagina, and a single tooth tenaculum was placed on the anterior lip of the cervix. A Hulka uterine manipulator was inserted into the patient's cervix, and the tenaculum and speculum were removed. Attention was then turned to the patient's abdomen. 5cc of 0.25% marcaine was injected into the inferior aspect of the patient's umbilicus, and a 5mm incision was made. A 5mm trocar was then insertedusing direct optical insertion technique with manual traction upward. Pneumoperitoneum was subsequently obtained. Opening pressure 6. A survey of the abdomen revealed the above operative findings. 5cc of 0.25% marcaine were injected into bilateral lower quadrants and two 5mm skin incisions were then made. Two 5 millimeter trocars were placed under direct visualization using the ASIS at landmarks. The laparoscope was then replaced in a lateral trocar to visualize the umbilical trocar and found to be without injury. Laparoscope was returned to the midline port. The ureter was visualized. Using the Ligasure device, the right fallopian tube was coagulated and cut in a stepwise fashion distally to proximally towards the uterus along the mesosalpinx. The right fallopian tube was removed from the abdomen. All sites were noted to be hemostatic following the conclusion of the procedure. The intraabdominal pressure was dropped to 6 mmHg, and all sites were still noted to be hemostatic. All trocars were removed from the patient's abdomen. The sites were closedwith 4-0 Monocryl in the subcuticular fashion, and were covered with band-aids. The Hulka uterine manipulator was then removed from the patient's cervix, and the site was noted to be hemostatic. After the completion of the laparoscopic R salpingectomy, the diagnostic hysteroscopy was performedas follows. A bivalve speculum was placed in the vagina and the anterior lip of the cervix was grasped with a single toothed tenaculum. The cervix was serially dilated to accommodate the hysteroscopeand the hysteroscope was inserted. Above operative findings were noted. In particular, a 2.7cm fibroid was present within the anterior cavity. The Myosure hysteroscope was then set up. The hysteroscope was again inserted into the uterus and the Myosure Reach device was placed through the instrument port of the scope. The visualized fibroid was removed using the Myosure device under direct visualization. The firbroid was almost completely intracavitary. The hysteroscope was then removed. After the myomectomy, endometrial ablation using the NovaSure was performed as follows. The uterus was sounded to 7 cm. The NovaSure was set to a uterine cavity length of 4.5 cm. The NovaSure device was placed inside of the uterus and the uterine cavity width was determined to be 3.6 cm. Successfulcavity assessment was performed and passed on first attempt.The device was then initiated and therapy delivered in less than 75 seconds. The device was then removed intact. The single-toothed tenaculum was removed and good hemostasis was noted at the tenaculum site. The sterile speculum was removed. Estimated Blood Loss: 15 mL Specimens: ID Type Source Tests Collected by Time A : Right Fallopian Tube Tissue Fallopian tube, non-tumor SURGICAL PATHOLOGY Bethany Martin MD 08/03/2022 0847 B : Uterine Contents Tissue Soft tissue biopsy SURGICAL PATHOLOGY Bethany Martin MD 08/03/2022 0911 Complications: None Sponge/Instrument/Needle Counts: The sponge, lap and needle counts were correct x 2. Condition on Discharge from the operating room was stable Dayanna Tobar MD The attending, Bethany Martin MD, was present for the entire procedure. Date: 08/03/2022 Time: 12:17 PM ATTESTATION I was present for the entire procedure. Bethany Martin MD * Pre-Procedure Instructions - Stephanie Harmon NP - 07/16/2022 12:25 PM CDT [facility] Location: [facility] The night before your surgery: * Do not eat anything after midnight the night before your procedure. and * Do not smoke or use tobacco products after midnight the night before surgery. It is best to stop smoking now to improve your health. The morning of your surgery: * You may have clear liquids on your surgery day. You must stop drinking two hours before you arrive to the surgery facility. Acceptable clear liquids include water, clear sports drinks, black coffee, or clear soda. DO NOT drink any milk, creamer, or alcohol. * Your surgeon's office may have provided additional instructions or restrictions. Please follow those instructions. * You may brush your teeth and rinse your mouth out. * Do not wear jewelry, body piercings, makeup, hairpins, false eyelashes or contact lenses to the hospital. * Leave any valuables at home or with your family. * If you are still having menstrual cycles, you should come with a full bladder on the morning of surgery in order to provide a urine sample. Outpatient Surgery: * You must have a responsible adult drive you home and stay with you for 24 hours after your surgery * You cannot be alone at home or in a hotel * Please call your surgeon's office if you do not have someone to drive you home and/or stay with you after surgery * Please bring any items you may need to spend the night in the hospital. Sometimes patients need to be cared for in the hospital overnight. Instructions For Your Medications: Pre-Surgery Instructions: Medication Instructions cyanocobalamin (Vitamin B-12) 250 mcg tablet Don't take on day of surgery ibuprofen (ADVIL,MOTRIN) 400 mg tablet Stop taking 5 days prior to surgery tranexamic acid (LYSTEDA) 650 mg tablet Don't take on day of surgery triamcinolone (KENALOG) 0.1 % cream Don't take on day of surgery albuterol HFA (PROVENTIL HFA,VENTOLIN HFA,PROAIR HFA) 90 mcg/actuation inhaler Take morning of surgery General Instructions For Medications: * Stop all of these medications 5 days prior to your surgery: excedrin, motrin, advil, ibuprofen, aleve, naproxen, meloxicam, celebrex, celecoxib. For medications that you are instructed to take on the morning of surgery, take the medications with a few sips of water. Stop all of these medications 7-14 days prior to your surgery: Vitamin E, Herbal medicines, Diet Pills If you use inhalers, please bring them with you on the day of your procedure. If you have pain, you may take tylenol (acetaminophen). Do not take more than 6 tablets or 3000 mg (3 g) within a 24 period. Call your surgeon and the CPAP clinic if any of the following happens before surgery: Any changes in your health You have a fever You have any signs of an infection (chest, urinary tract or tooth) You have been to the Emergency Room or were in the hospital You have started taking any new medications You have questions about a bowel prep or special diet before surgery You have symptoms of COVID-19 such as a new or worsening cough, shortness of breath, fever, body aches, loss of taste or smell, diarrhea or vomiting, or sore throat. You have a household contact with COVID-19. You test positive for COVID-19. * Perioperative Nursing Note - Salena Chung RN - 07/09/2022 12:54 PM CDT [facility] for Preoperative Assessment and Planning Perioperative Nursing Note Telephone Preoperative Evaluation ([facility]) - TELEPHONE ONLY, NO PHYSICAL EXAM Date: 07/09/22 Vitals: 07/09/22 1250 Weight: 43.1 kg (95 lb) Height: 157.5 cm (5' 2 ) CHEST CIRCUMFERENCE: n/a Social History Tobacco Use Smoking Status Some Days Packs/day: 0.15 Years: 1.00 Pack years: 0.15 Types: Cigarettes Smokeless Tobacco Not on file Vaping Use Vaping Status Never Used Substance and Sexual Activity Drug Use Never Alcohol Use Q1: How often do you have a drink containing alcohol?: 2-4 times a month Q2: How many drinks containing alcohol do you have on a typical day when you are drinking?: 1 or 2 Q3: How often do you have six or more drinks on one occasion?: Never Outpatient Medications Marked as Taking for the 08/03/22 encounter (Hospital Encounter) Medication Sig Dispense Refill cyanocobalamin (Vitamin B-12) 250 mcg tablet Take 1 tablet (250 mcg total) by mouth toe sewer before breakfast ibuprofen (ADVIL,MOTRIN) 400 mg tablet Take 1 tablet (400 mg total) by mouth every 6 (six) hours asneeded for pain tranexamic acid (LYSTEDA) 650 mg tablet Take 2 tablets by mouth every 6-8 hrs (3 times a day) starting with onset of period for 5 days. (Patient taking differently: Take 1 tablet (650 mg total) by mouth as directed Take 2 tablets by mouth every 6-8 hrs (3 times a day) starting with onset of period for 5 days.) 30 tablet 11 triamcinolone (KENALOG) 0.1 % cream Apply 1 g topically 2 (two) times a day [DISCONTINUED] ubrogepant (UBRELVY) 100 mg tablet Take 1 tablet (100 mg total) by mouth daily as needed for migraine Implants No active implants to display in this view. 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 Needs Communication Needs: Glasses Assistive Devices/DME: None Hearing - Right Ear: Functional Hearing - Left Ear: Functional Discharge Planning Type of Residence: Private residence Living Arrangements: Spouse/significant other Support Systems: Spouse/significant other Patient expects to be 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 Arrival time and surgical time will be provided to the patient by their surgeon. You should wear clothing that is clean, loose, comfortable and easy to get in and out of on the dayof surgery. You should remove nail coverings, artificial nails and nail turkish prior to the day of surgery. You should leave your valuables and any jewelry at home. No metal or piercings are allowed in the operating room. You should bring your insurance card, a photo ID (example: Seo Engineer's License) and a method of payment for any insurance copay, deductible or copay for discharge medications. You should bring a complete, up-to-date, list of all your medications on the day of surgery, including any over the counter medications or supplements you may take. Please note on your medication list, the last date & time you took each medication. The healthcare team, on the day of surgery, will ask for this information. You should bring your Advanced Directive and/or Living Will with you on the day of surgery if you have not verified a copy is already in your Epic Chart. A Guide for Patients Having Surgery: Your Pathway to Excellent Care OUR GOAL IS TO PROVIDE YOU WITH EXCELLENT CARE Use this guide to learn about what you can do before, during and after surgery to help your recovery. You are the most important person on your health care team. By becoming informed and involved, you can contribute to the success of your surgery. If your surgeon's directions are different than those in this guide, talk with your nurse or surgeon to confirm the information. It is important that you understand how to take care of yourself at home after surgery. Be sure to bring this guide with you on the day of surgery and take it home with you after surgery. Write down questions for your nurse or surgeon on the last page of this booklet. Important pages to be reviewed BEFORE surgery: Page 1: QR codes for Surgery Center maps Page 3: Types of Anesthesia Page 5: Tips for the day & night before surgery Page 6: When to stop eating BEFORE surgery and examples of clear liquids Page 7-10: Preventing Infection: Chlorhexidine Gluconate (CHG) Bathing Instructions You may access A Guide for Patients Having Surgery: Your Pathway to Excellent Care by the followinglink: [email or web address] How To Prepare Your Skin For Surgery Below is the Pre-Surgical Bathing Protocol you should follow for your surgery. If your surgeon provides you different bathing instructions, please follow your surgeon's orders. 2 Day CHG Bathing Protocol (no nasal ointment) PREVENTING INFECTION (DECOLONIZATION): Decolonization is the use of a topical antiseptic soap and sometimes a nasal ointment to remove bacteria (germs) from the skin's surface. Antiseptic soap: Chlorhexidine gluconate or CHG (brand name: Hibiclens??) Before surgery, your entire body must be thoroughly cleaned. CHG helps to reduce the bacteria on your skin. You may be given one or more bottles of CHG or you may be asked to obtain from your preferred pharmacy. Be sure to ask your pharmacist if you need help finding this product. SHOWERING WITH ANTISEPTIC SOAP (CHG) What You Need For Each Shower 60 mL (?? cup) of CHG 2 clean washcloths CHG Bathing Instructions First, shampoo and rinse your hair with your own shampoo (no conditioners). Do this so the antiseptic soap isn't washed off by your shampoo. Wash face with warm water. Turn off shower and stand away from the water. Use 2 clean washcloths to apply the antiseptic soap to all areas as described below: Pour 30 mL (1/8 cup) of CHG on washcloth #1: Using washcloth- start at jawline and firmly massage the soap into the skin in a circular motion to clean neck, shoulders, chest, back, both armpits, arms, hands and abdomen. Finish with legs and feet. Pour 30 mL (1/8 cup) of CHG on washcloth #2: Using washcloth- firmly massage the soap into the skinin a circular motion to clean groin area, perineum and buttocks. (Do not use CHG on genital area.) Diop Points: The CHG antiseptic soap will not bubble or lather very much. If you get soap in your eyes, ears or mouth, rinse well with cool water. When finished, leave the soap on your skin for 2 minutes before rinsing. Dry off with a clean fresh towel. Wear clean clothes or pajamas to sleep in. After showering DO NOT put on deodorant, hair products or conditioners, lotions or creams, powders,Vaseline or any non-essential products. If you cannot reach the surgical site, such as the back, please have someone help you. Shaving: You may shave your face, legs and underarms during your evening shower before you apply the CHG antiseptic soap. Be careful not to cut or sherri your skin. Avoid shaving on the day of surgery. 2-Day CHG Bathing Protocol The Evening Before Surgery: Take a shower with Antiseptic soap (CHG). Follow the steps for ???Showering with Antiseptic Soap (CHG)?? above. Change all linens on your bed so you are sleeping in clean fresh sheets and pillowcases. Remove nail coverings, artificial nails and nail turkish. The Morning of Surgery: Take a shower with Antiseptic soap (CHG). Follow the steps for ???Showering with Antiseptic Soap (CHG)?? above. Put clean clothes on after you shower. Travel/Exp osure Screening: Travel Screening Have you traveled outside the [place] in the last 6 months?: No Exposure Screening Have you been exposed to anyone who is sick in the last 30 days?: No Have you been exposed to or tested positive for COVID-19 within the last 10 days?: No Infectious Disease Screening Are you having any of the following:: None As of 01/02/2022 any COVID TESTING required for surgery will be set up by your surgeon's office. Please reach out to your surgeon's office if you develop any COVID symptoms, test positive for COVID or are exposed to a COVID positive person. If you have questions, please call the CPAP Staff at [phone], Saturday-Saturday 8am-4:30pm. All patients should read the below section: All visitors/patients are being asked to wear a clean face mask when entering the hospital. COVID 19 Updates & Visitor Policy: Please access [email or web address] for the most updated information. Information on [facility] the [facility] Center: Please view [email or web address] (Patient & Visitor Information) for additional details regarding Advanced Directive forms, AWARE, directions, parking information, lodging, Internet access, dining and more. For MyChart information, to activate account or password recovery, please go to [email or web address] or call [phone] (toll-free: [phone]). Information for Suicide Prevention: National Suicide Prevention Lifeline (9-500- 932-CATP (9679)). Surgery Times: For patients having surgery @ [facility], [facility] or [facility] ([facility]), if your surgeon's office has not notified you of your surgery time by NOON THE BUSINESS DAY BEFORE your surgery, please call [phone] and ask for your surgeon's office Dr. Lawson Martin. documented in this encounter Plan of Treatment Not on file documented as of this encounter Procedures Procedure Name Priority Date/Time Associated Diagnosis Comments SURGICAL PATHOLOGY Routine 08/03/2022 8: 47 AM CDT Menorrhagia with regular cycle Fibroids Unwanted fertility ABLATION UTERINE - NOVASURE 08/03/2022 7:32 AM CDT Menorrhagia with regular cycle Fibroids Unwanted fertility Case Notes 06/26- moving to 08/03 per juliana via phone call.ef Special Needs Novasure, Myosure and Ligasure: NO REP WILL BE AVAILABLE FOR THIS CASE. HYSTEROSCOPIC MYOMECTOMY - MYOSURE 08/03/2022 7:32 AM CDT Menorrhagia with regular cycle Fibroids Unwanted fertility Case Notes 06/26- moving to 08/03 per juliana via phone call.ef Special Needs Novasure, Myosure and Ligasure: NO REP WILL BE AVAILABLE FOR THIS CASE. LAPAROSCOPIC SALPINGECTOMY 08/03/2022 7:32 AM CDT Menorrhagia with regular cycle Fibroids Unwanted fertility Case Notes 06/26- moving to 08/03 per juliana via phone call.ef Special Needs Novasure, Myosure and Ligasure: NO REP WILL BE AVAILABLE FOR THIS CASE. POCT HCG, URINE Routine 08/03/2022 5:45 AM CDT documented in this encounter Results * Surgical pathology (08/03/2022 8:47 AM CDT) Tissue (Fallopian tube, non-tumor) 08/03/2022 8:47 AM CDT Tissue (Soft tissue biopsy) 08/03/2022 9:11 AM CDT Narrative PATHOLOGY [facility] - 08/09/2022 10:57 AM CDT EPIC results best viewed via link to PDF [facility] [place] [address] Note to Patients: This report may contain [...] can answer questions and explain the details. SURGICAL PATHOLOGY REPORT FINAL Patient Name: ?? SHAGUFTA LIN Gender: ??F : ??1985 (Age: 36) Address: ??[address], [place], [place] ??[address] Hospital #: ??[id number] Taken:08/03/2022 Received:08/03/2022 Reported: 08/09/2022 Patient Type: [facility] SDS ?? Service: Surgery Location: [facility] OR POD1 Physician(s): ??Adele Andrea, TRICIA Tobar M.D. Diagnosis: A. Fallopian tube, right, salpingectomy ? - Unremarkable fallopian tube, including fimbriated end ? - Cross-section identified ?? B. ??Uterus, hysteroscopic myomectomy ? - Portions of smooth muscle ? - Fragments of benign endometrial polyp ? - Secretory endometrium ? - No evidence of hyperplasia or malignancy pxk/08/09/2022 08:19 By this signature, I attest that the above diagnosis is based upon my personal examination of the slides(and/or other material indicated in the diagnosis). Tez Teresa M.D., Ph.D. Report Electronically Reviewed and Signed Out By ??Tez Teresa M.D., Ph.D. 08/09/2022 10:57:28 Microscopic Description and Comment: Microscopic examination substantiates the above cited diagnosis. ?? Candelaria Julian M.D. History: The patient is a 36-year-old woman with menorrhagia with regular cycle, fibroids, and unwanted fertility. ??Operative procedure: Laparoscopic salpingectomy, hysteroscopic myomectomy MyoSure, ablation uterine-NovaSure Specimen(s) Received: A: Right fallopian tube B: Uterine contents Gross Description: Received in two formalin jars labeled with the patient's identifiers. A. ??Labeled right fallopian tube is a fallopian tube (7.7 cm in length and 0.8 cm in diameter). ??Serial sections show an intact fimbriated end without focal lesions. ??Scale Tester sections including fimbriae are submitted in cassette A1. Jar 1. B. ??Labeled uterine contents are multiple fragments of rubbery white tissue admixed with purple coagulum and mucoid material (3.5 x 2.5 x 0.7 cm in aggregate). ??The specimen is filtered and submitted entirely in cassettes B1-B3. Jar 0. ?? bao2/08/07/2022 09:51 PA(s): JJ Whitmore (ASCP) By this signature, I attest that the above diagnosis is based upon my personal examination of the slides(and/or other material). Addenda/Procedures The performance characteristics of some immunohistochemical stains, fluorescence in-situ hybridization tests and immunophenotyping by flow cytometry cited in this report (if any) were determined by the Surgical Pathology and Flow Cytometry Departments at [facility] as part of an ongoing supplier quality engineer program and in compliance with federally mandated [...] performance characteristics determined by the Surgical Pathology and Flow Cytometry Departments of [facility]. ??It has not been cleared or approved by the [place]. S. Food and Drug Administration. IMAGES AND SCANNED DOCUMENTS, IF INCLUDED, ONLY VIEWABLE IN PDF VERSION OF REPORT Bethany Martin MD LAB PATHOLOGY ORD ERABLES Final Result PATHOLOGY [facility] [address] Floor [place], [place] [phone] * POCT hCG, urine (08/03/2022 5:45 AM CDT) HCG, ur, POC Negative Lot Number [id number] QC Backgroud Clear Acceptable QC Control Line Acceptable Urine 08/03/2022 5:45 AM CDT Stephanie Harmon NP POINT OF CARE TEST ORDERABLE S Final Result documented in this encounter Visit Diagnoses Diagnosis Menorrhagia with regular cycle Fibroids Leiomyoma of uterus, unspecified Unwanted fertility Menorrhagia with regular cycle Fibroids Leiomyoma of uterus, unspecified Unwanted fertility documented in this encounter Admitting Diagnoses Diagnosis Menorrhagia with regular cycle Fibroids Leiomyoma of uterus, unspecified Unwanted fertility documented in this encounter Administered Medications Inactive Administered Medications - up to 3 most recent administrations Medication Order MAR Action Action Date Dose Rate Site acetaminophen (TYLENOL) tablet 1,000 mg 1,000 mg, oral, Once, On Sat08/03/22 at 0645, For 1 dose, Pre-Op, Indications: PainIndications:Pain Given 08/03/2022 6:41 AM CDT 1,000 mg BUPivacaine (MARCAINE) 0.25 % (2.5 mg/mL) preservative free injection As needed, Starting on Sat08/03/22 at 0852, Intra-Op Given 08/03/2022 8:52 AM CDT 12 mL Carrier Fluids for Secondary Infusion - 0.9% Sodium Chloride 30 mL, intravenous, As needed, For priming tubing and/or flushing, Starting on Sat08/03/22 at 0612, Pre-Op, 0-250 ml/hr to flush line after IV infusions when no maintenance IV ordered. Infuse 30mL at the same rate as the secondary infusion. Run as primary IV, not intended for KVO. famotidine (PEPCID) injection 20 mg 20 mg, intravenous, Administer over 2 Minutes, Once, On Sat08/03/22 at 0645, For 1 dose, Pre-Op Given 08/03/2022 6:41 AM CDT 20 mg HYDROmorphone (DILAUDID) injection 0.2 mg 0.2 mg, intravenous, Administer over 2 Minutes, Every 10 min PRN, 1st line for pain, Starting on Sat08/03/22 at 0917, Phase I, Notify Anesthesiologist if total PACU dose reaches 2 mg and pain score 5/10 or more., Indications: PainIndications:Pain Given 08/03/2022 10:21 AM CDT 0.2 mg Given 08/03/2022 10:00 AM CDT 0.2 mg Given 08/03/2022 9:49 AM CDT 0.2 mg Lactated Ringer's (LR) infusion 30 mL/hr, intravenous, Continuous, Starting on Sat08/03/22 at 0645 Restarted 08/03/2022 9:09 AM CDT Rate/Dose Verify 08/03/2022 7:29 AM CDT 30 mL/h r New Bag 08/03/2022 6:40 AM CDT 30 mL/hr 30 mL/hr lidocaine PF (XYLOCAINE) 10 mg/mL (1 %) preservative free injection 2-10 mg 2-10 mg (0.2-1 mL), other, Once as needed, pain with IV placement, Starting on Sat08/03/22 at 0612, For 1 dose, Pre-Op, Administer volume needed to infiltrate IV site. oxyCODONE (ROXICODONE) tablet 5 mg 5 mg, oral, Once as needed, 1st line for pain, Starting on Sat08/03/22 at 0917, For 1 dose, Phase I, When able to tolerate PO., Indications: PainIndications:Pain Given 08/03/2022 10:00 AM CDT 5 mg scopolamine patch 72 hour 1 patch 1 patch, transdermal, Administer over 72 Hours, Once, On Sat08/03/22 at 0645, For 1 dose, Pre-Op Medication Applied 08/03/2022 6:41 AM CDT 1 patch Behind Left Ear sodium chloride 0.9% flush 0.5-20 mL 0.5-20 mL, intra-catheter, As needed, line care, Starting on Sat08/03/22 at 0612, Pre-Op, Flush volume based on line type and size. Flush before and after each use. sodium chloride 0.9% irrigation As needed, Starting on Sat08/03/22 at 0916, Intra-Op Given 08/03/2022 9:16 AM CDT 6,000 mL sterile water irrigation As needed, Starting on Sat08/03/22 at 0916, Intra-Op Given 08/03/2022 9:16 AM CDT 1,000 mL documented in this encounter Discontinued Medications Medication Sig Discontinue Reason Start Date End Da te acetaminophen-codeine (TYLENOL with CODEINE #3) 300-30 mg per tablet TAKE 1 TO 2 TABLETS BY MOUTH EVERY 6 TO 8 HOURS NEEDED FOR PAIN 05/31/2022 07/09/2022 benzonatate (TESSALON) 200 mg capsule every 8 hours 07/09/2022 cetirizine (ZyrTEC) 10 mg tablet Take 1 tablet (10 mg total) by mouth daily 04/13/2022 07/09/2022 clobetasoL (TEMOVATE) 0.05 % cream Apply 1 Application topically 2 (two) times a day 06/06/2022 07/09/2022 diazePAM (VALIUM) 5 mg tablet Take 1 tablet (5 mg total) by mouth every 6 (six) hours as needed for anxiety or sleep 05/31/2022 07/09/2022 doxycycline monohydrate (MONODOX) 100 mg capsule doxycycline monohydrate 100 mg capsule take 2 capsules by mouth once daily as directed for 7 days 07/09/[address] (CYMBALTA) 30 mg capsule Take 1 capsule (30 mg total) by mouth daily 04/27/2022 07/09/2022 famotidine (PEPCID) 20 mg tablet 04/13/2022 07/09/2022 HYDROcodone-acetaminoph en ([place]) 5-325 mg per tablet every 6 hours 07/09/2022 methylPREDNISolone (MEDROL DOSEPACK) 4 mg Dosepack as directed 04/02/2022 07/09/2022 predniSONE (DELTASONE) 20 mg tablet prednisone 20 mg tablet take 2 tablets by mouth once daily for 5 days 07/09/2022 ondansetron ODT (ZOFRAN-ODT) 4 mg disintegrating tablet 04/13/2022 07/09/2022 ubrogepant (UBRELVY) 100 mg tablet Take 1 tablet (100 mg total) by mouth daily as needed for migraine 04/13/2022 07/09/2022 zolpidem (AMBIEN) 5 mg tablet Take 1 tablet (5 mg total) by mouth 04/13/2022 07/09/2022 ibuprofen (ADVIL,MOTRIN) 400 mg tablet Take 1 tablet (400 mg total) by mouth every 6 (six) hours as needed for pain Stop Taking at Discharge 08/03/2022 documented as of this encounter Historical Medications * This list may reflect changes made after this encounter. ibuprofen (ADVIL,MOTRIN) 400 mg tablet Take 1 tablet (400 mg total) by mouth every 6 (six) hours as needed for pain 08/04/19 23 zolpidem (AMBIEN) 5 mg tablet Take 1 tablet (5 mg total) by mouth 04/13/2022 07/10/19 23 ubrogepant (UBRELVY) 100 mg tablet Take 1 tablet (100 mg total) by mouth daily as needed for migraine 04/13/2022 07/10/19 23 triamcinolone (KENALOG) 0.1 % creamIndications:Sk in Inflammation Apply 1 g topically 2 (two) times a day 04/02/2022 06/03/19 24 predniSONE (DELTASONE) 20 mg tablet prednisone 20 mg tablet take 2 tablets by mouth once daily for 5 days 07/10/19 23 ondansetron ODT (ZOFRAN-ODT) 4 mg disintegrating tablet 04/13/2022 07/10/19 23 methylPREDNISolone (MEDROL DOSEPACK) 4 mg Dosepack as directed 04/02/2022 07/10/19 23 HYDROcodone-acetami nophen ([place]) 5-325 mg per tablet every 6 hours 23 famotidine (PEPCID) 20 mg tablet 04/13/2022 07/10/[address] (CYMBALTA) 30 mg capsule Take 1 capsule (30 mg total) by mouth daily 04/27/2022 07/10/19 23 doxycycline monohydrate (MONODOX) 100 mg capsule doxycycline monohydrate 100 mg capsule take 2 capsules by mouth once daily as directed for 7 days 07/10/19 23 clobetasoL (TEMOVATE) 0.05 % cream Apply 1 Application topically 2 (two) times a day 06/06/2022 07/10/19 23 cetirizine (ZyrTEC) 10 mg tablet Take 1 tablet (10 mg total) by mouth daily 04/13/2022 07/10/19 23 benzonatate (TESSALON) 200 mg capsule every 8 hours 07/10/19 23 acetaminophen-codei ne (TYLENOL with CODEINE #3) 300-30 mg per tablet TAKE 1 TO 2 TABLETS BY MOUTH EVERY 6 TO 8 HOURS NEEDED FOR PAIN 05/31/2022 07/10/19 23 added in this encounter Active and Recently Administered Medications Times are shown in CDT. Scheduled Medication Order 08/01/2022 08/02/2022 08/03/2022 acetaminophen (TYLENOL) tablet 1,000 mg (COMPLETED) 1,000 mg, oral, Once, On Sat08/03/22 at 0645, For 1 dose, Pre-Op, Indications: Pain 0641 (Given - Provid er: Aspen Zamora RN) famotidine (PEPCID) injection 20 mg (COMPLETED) 20 mg, intravenous, Administer over 2 Minutes, Once, On Sat08/03/22 at 0645, For 1 dose, Pre-Op 0641 (Given - Provid er: Aspen Zamora RN) scopolamine patch 72 hour 1 patch 1 patch, transdermal, Administer over 72 Hours, Once, On Sat08/03/22 at 0645, For 1 dose, Pre-Op 0641 (Medication Nikolai lied - Provider: Aspen Zamora RN)1120 (Due: Medication Removed - Provider: Automatic Discharge Provider - Comment: Time automatically adjusted from order being discontinued) Continuous Medication Order 08/01/2022 08/02/2022 08/03/2022 Lactated Ringer's (LR) infusion 30 mL/hr, intravenous, Continuous, Starting on Sat08/03/22 at 0645 0640 (New Bag - Prov ider: Aspen Zamora RN)0729 (Rate/Dose Verify - Provider: Domingo Blakely CRNA)0908 (Paused - Provider: Domingo Blakely CRNA - Comment: Switch to gravity)0909 (Restarted - Provider: Domingo Blakely CRNA)0920 (Anesthesia Volume Adjustment - Provider: Domingo Blkaely CRNA)1521 (Due: Stopped) Lactated Ringer's (LR) infusion 10 mL/hr, intravenous, Continuous, Starting on Sat08/03/22 at 1000, Phase I, 1000 (Due) PRN Medication Order 08/01/2022 08/02/2022 08/03/2022 BUPivacaine (MARCAINE) 0.25 % (2.5 mg/mL) preservative free injection (CANCELED) As needed, Starting on Sat08/03/22 at 0852, Intra-Op 0852 (Given - Provid er: Bethany Martin MD) Carrier Fluids for Secondary Infusion - 0.9% Sodium Chloride 30 mL, intravenous, As needed, For priming tubing and/or flushing, Starting on Sat08/03/22 at 0612, Pre-Op, 0-250 ml/hr to flush line after IV infusions when no maintenance IV ordered. Infuse 30mL at the same rate as the secondary infusion. Run as primary IV, not intended for KVO. fentaNYL (SUBLIMAZE) preservative free injection 50 mcg 50 mcg, intravenous, Once as needed, uncontrolled pain on PACU admission, Starting on Sat08/03/22 at 0917, For 1 dose, Phase I, Then proceed to PACU 1st line analgesic., Indications: Pain HYDROmorphone (DILAUDID) injection 0.2 mg 0.2 mg, intravenous, Administer over 2 Minutes, Every 10 min PRN, 1st line for pain, Starting on Sat08/03/22 at 0917, Phase I, Notify Anesthesiologist if total PACU dose reaches 2 mg and pain score 5/10 or more., Indications: Pain 0949 (Given - Provid er: Yulia Salcedo RN)1000 (Given - Provider: Yulia Salcedo RN)1021 (Given - Provider: Yulia Salecdo RN) lidocaine PF (XYLOCAINE) 10 mg/mL (1 %) preservative free injection 2-10 mg 2-10 mg (0.2-1 mL), other, Once as needed, pain with IV placement, Starting on Sat08/03/22 at 0612, For 1 dose, Pre-Op, Administer volume needed to infiltrate IV site. naloxone (NARCAN) 0.4 mg/mL injection 0.04-0.4 mg 0.04-0.4 mg, intravenous, Once as needed, other, excessive sedation/respiratory depression, Starting on Sat08/03/22 at 0917, For 1 dose, Phase I, Dilute 0.4 mg with 9 mL NS (final concentration 0.04 mg/mL). For respiratory depression (respiratory rate less than 6), administer 0.4 mg IVP over 30 seconds. For excessive sedation administer 0.04 mg (1 mL) every 1 minute until desired level of alertness. For IV, administer over 30 seconds., Indications: Opioid Toxicity oxyCODONE (ROXICODONE) tablet 5 mg (COMPLETED) 5 mg, oral, Once as needed, 1st line for pain, Starting on Sat08/03/22 at 0917, For 1 dose, Phase I, When able to tolerate PO., Indications: Pain 1000 (Given - Provid er: Yulia Salcedo RN) prochlorperazine (COMPAZINE) injection 5 mg 5 mg, intravenous, Administer over 2 Minutes, Once as needed, nausea, vomiting, Starting on Sat08/03/22 at 0917, For 1 dose, Phase I sodium chloride 0.9% flush 0.5-20 mL 0.5-20 mL, intra-catheter, As needed, line care, Starting on Sat08/03/22 at 0612, Pre-Op, Flush volume based on line type and size. Flush before and after each use. sodium chloride 0.9% irrigation (CANCELED) As needed, Starting on Sat08/03/22 at 0916, Intra-Op 0916 (Given - Provid er: Bethany Martin MD) sterile water irrigation (CANCELED) As needed, Starting on Sat08/03/22 at 0916, Intra-Op 0916 (Given - Provid er: Bethany Martin MD) documented in this encounter Orders Medications Ordered That Heath ht Not Have Been Administered Count Last Ordered Date First Ordered Date Carrier Fluids for Secondary Infusion - 0.9% Sodium Chloride 1 08/03/2022 fentaNYL (SUBLIMAZE) preserv ative free injection 50 mcg 1 08/03/2022 Lactated Ringer's (LR) infusion 1 lidocaine PF (XYLOCAINE) 10 mg/mL (1 %) preservative free injection 2-10 mg 1 08/03/2022 naloxone (NARCAN) 0.4 mg/mL injection 0.04-0.4 mg 1 08/03/2022 prochlorperazine (COMPAZINE) injection 5 mg 1 08/03/2022 sodium chloride 0.9% flush 0.5-20 mL 1 07/10 Discharge Count Last Ordered Date First Orde red Date DISCHARGE PATIENT 1 08/03/2022 documented in this encounter Care Teams Psychiatric Tech Relationship Specialty Start Date End Date Jacquie Fair MD [address] [address] PCP - General Nurse Practitioner 01/31/22 documented as of this encounter
--- OUTSIDE RECORDS SUMMARY | 2024-02-27 10:22 | XMS_ITS | Encounter Summary ---
Author Organization [facility] Address [address] [place] [address] Care Team Providers Care Research Manufacturing Operator Name Role Phone Jacquie Fair MD Primary Care Provider [phone]- [phone] Reason for Referral * Cardiology (Routine) - Closed Specialty Diagnoses / Procedures Referred By Contac t Referred To Contact Diagnoses Syncope and collapse Procedures MCT Mobile Cardiac Telemetry Event Monitor Isac Allen MD [facility] [facility] [address] [address] Phone: tel: fax: [facility] Referral ID Status Reason Start Date Expiration Date Visits Re quested Visits Authorized [id number] Closed 07/05/2023 08/03/2024 1 1 * Cardiology (Routine) - Closed Specialty Diagnoses / Procedures Referred By Contac t Referred To Contact Diagnoses Syncope and collapse Procedures MCT Mobile Cardiac Telemetry Event Monitor Isac Allen MD [facility] [facility] [address] [address] Phone: tel: fax: [facility] Referral ID Status Reason Start Date Expiration Date Visits Re quested Visits Authorized [id number] Closed 07/05/2023 08/03/2024 1 1 * Cardiology (Routine) - Closed Specialty Diagnoses / Procedures Referred By Contac t Referred To Contact Diagnoses Syncope and collapse Procedures Transthoracic Echo (TTE) Complete W Doppler/CF Isac Allen MD [address] [facility] [address] [place] [address] Phone: tel: fax: [facility] [address] [place] [address] Referral ID Status Reason Start Date Expiration Date Visits Re quested Visits Authorized [id number] Closed 07/05/2023 08/03/2024 1 1 Reason for Visit * Reason Comments Syncope Encounter Details Date Type Department Care Team (Late st Contact Info) Description 07/05/2023 1:15 PM CDT Office Visit [facility] Cardiology [address] [place] [phone] Isac Allen MD [address] [facility] [address] [address] [place] [address] Syncope and collapse (Primary Dx) [...] Date Job End Date 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 Not on file Not on file Not on file documented as of this encounter Last Filed Vital Signs Vital Sign Reading Time Taken Comments Blood Pressure 103/70 07/05/2023 1:15 PM CDT Pulse 88 07/05/2023 1:15 PM CDT Temperature - - Respiratory Rate - - Oxygen Saturation 98% 07/05/2023 1:15 PM CDT Inhaled Oxygen Concentration - - Weight 43.7 kg (96 lb 6.4 oz) 07/05/2023 1:15 PM CDT Height 157.5 cm (5' 2.01 ) 07/05/2023 1:15 PM CD T Body Mass Index 17.63 07/05/2023 1:15 PM CDT documented in this encounter Ordered Prescriptions Prescription Sig Dispense Quantity Refills Last Filled Start Date End Date midodrine (PROAMATINE) 5 mg tabletIndications: Symptomatic Orthostatic Hypotension Take 1 tablet (5 mg total) by mouth 2 (two) times a day 60 tablet 07/05/2023 07/31/2023 documented in this encounter Progress Notes * Isac Allen MD - 07/05/2023 1:15 PM CDT Images from the original note were not included. Patient Name: Shagufta Lamar : 1985 Date of Service: 07/05/2023 Referring: Jacquie Fair MD Chief Complaint Chief Complaint Patient presents with Syncope Dear Jacquie Fair MD HISTORY OF PRESENT [...] 10 minutes. He was seen in the [facility] ER where workup was otherwise negative for trauma. Event likely due to hypotension which improved with IV hydration. Growing up, she reports an episode of fainting when she was around 20 years old. Since then, no other episodes. Normally , her blood pressure usually ranges from 90s to 100 systolic. On a normal day,denies any orthostatic symptoms. Denies any prior cardiac evaluation. EKG Normal SR, normal EKG Allergies Allergen Reactions Cephalosporins Diarrhea and Vomiting Toxic Megacolon and Cdiff) Adhesive Rash Adhesive on heart monitors Latex Rash Methylprednisolone Diarrhea and Vomiting Vomiting, diarrhea Home Medications: HOME MEDICATIONS : acetaminophen (TYLENOL) 500 mg tablet albuterol HFA (PROVENTIL HFA,VENTOLIN HFA,PROAIR HFA) 90 mcg/actuation inhaler zolpidem (AMBIEN) 5 mg tablet PAST MEDICAL HISTORY: has a past medical history of Delayed emergence from general anesthesia (2008) and Dysmenorrhea. She has no past medical history of Acute respiratory failure requiring reintubation (CMS/HCC) ([facility]), Awareness under anesthesia, Hard to intubate, Hematoma, Malignant hyperthermia, Motion sickness, Pneumothorax, PONV (postoperative nausea and vomiting), Postoperative delirium, Pseudocholinesterase deficiency, Seizures ([facility]), Sleep apnea, Spinal headache, or Stroke ([facility]). FAMILY HISTORY: family history is not [...] excessive bleeding or bruising VITAL SIGNS BP 103/70 (BP Location: Left arm, Patient Position: Sitting) Pulse 88 Ht 157.5 cm (5' 2.01 ) Wt 43.7 kg (96 lb 6.4 oz) SpO2 98% BMI 17.63 kg/m?? Body mass index is 17.63 kg/m??. PHYSICAL EXAMINATION General: Well appearing, No [...] CHOLHDL , TRIG No results found for: PT , PTT , APTT , FFN , FIBRINOGEN , INR , ACTIVATEDCL No results found for: CKTOTAL , CKMB , TROPONINI , TROPONINT ASSESSMENT: Diagnoses and all orders for this visit: Syncope and collapse (Primary) - Transthoracic Echo (TTE) Complete W Doppler/CF; Future - MCT Mobile Cardiac Telemetry Event Monitor; Future - MCT Mobile Cardiac Telemetry Event Monitor; Future Other orders - midodrine (PROAMATINE) 5 mg tablet; Take 1 tablet (5 mg total) by mouth 2 (two) times a day PLAN Syncope. Possibly orthostatic versus vasovagal for the referral. Prodromal symptoms including dimming vision. EKG without any evidence of structural heart disease. Low risk factors for acute coronarysyndrome/CAD. - we will obtain a 30 day MCT further evaluation Chronic relative hypotension. Mostly asymptomatic. -can trial low-dose midodrine 5 mg BID to see if improvement in her systolics. -can consider POTS evaluation if further episode I once again thank you for allowing participate in the care of your patient. Please feel free to contact me via cell or office if you have any questions. Tex Allen M.D ([place]). Interventional Cardiology [facility] Cardiology [address] [place] [address], [address] [place] [address] CC: Jacquie Fair MD Toddler Teacher completed by using [email or web address] Direct speaking software, inadvertent basting marker variances may occur. documented in this encounter Plan of Treatment Pending Results Name Type Priority Associated Diagnoses Date /Time MCT Mobile Cardiac Telemetry Event Monitor Cardiac Services Routine Syncope and collapse 07/05/2023 2:38 PM CDT MCT Mobile Cardiac Telemetry Event Monitor Cardiac Services Routine Syncope and collapse 07/05/2023 3:42 PM CDT Scheduled Orders Name Type Priority Associated Diagnoses Orde r Schedule MCT Mobile Cardiac Telemetry Event Monitor Cardiac Services Routine Syncope and collapse Expected: 07/05/2023, Expires: 07/04/2024 MCT Mobile Cardiac Telemetry Event Monitor Cardiac Services Routine Syncope and collapse Expected: 07/05/2023, Expires: 07/04/2024 documented as of this encounter Results * TRANSTHORACIC ECHO (TTE) COMPLETE W DOPPLER/CF WO CONTRAST (07/31/2023 9:44 AM CDT) Anatomical Region Laterality Modality Ultrasound 07/31/2023 9:44 AM CDT Narrative 08/10/2023 3:36 PM CDT ? Adult Echocardiogram + ----- --+ :Name: SHAGUFTA LAMAR ? Study Date: 07/31/2023 ?Status: MHE ? : : ?[facility] ? : : ?Weight: 96 lbBP: 148/92 mmHg: :: 1985 ? Gender: Female ?BSA: 1.4 m2 ? : :Reason For Study: dyspnea ? : :Ordering Physician: ALLEN, ?: :HARDIKKUMAR ? : :Referring Physician: ?: :ALLEN, HARDIKKUMAR ?: :MANUBHAI ?: :Performed By: Michelle ? : :Griese, RDCS ?: + ----- --+ Procedure A two-dimensional transthoracic echocardiogram with color flow and Doppler was performed. The study was technically difficult due to patient's 'body habitus'. Left Ventricle The left ventricle is normal in size. There is normal left ventricular wall thickness. Left ventricular systolic function is normal. Ejection Fraction = 60-65%. The left ventricular wall motion is normal. Right Ventricle The right ventricle is normal size. There is normal right ventricular wall thickness. The right ventricular systolic function is normal. The right ventricular wall motion is normal. Atria The left atrial size is normal. Right atrial size is normal. The interatrial septum is intact with no evidence for an atrial septal defect. Mitral Valve The mitral valve is grossly normal. There is no mitral valve stenosis. No significant mitral regurgitation noted. Tricuspid Valve The tricuspid valve is normal. There is no tricuspid stenosis. No significant tricuspid regurgitation noted. Right ventricular systolic pressure is normal. Aortic Valve The aortic valve is trileaflet. The aortic valve opens well. No aortic stenosis . No significant aortic regurgitation noted. Pulmonic Valve The pulmonic valve is not well seen, but is grossly normal. Mild pulmonic valvular regurgitation. Great Vessels The aortic root is normal size. No obvious dissection could be visualized. IVC appears normal in size. Pericardium The pericardium appears normal. Diastology E to e' is normal. No abnormal diastolic relaxation abnormalities. Interpretation Summary Left ventricular systolic function is normal. Ejection Fraction = 60-65%. The left ventricular wall motion is normal. No abnormal diastolic relaxation abnormalities. No severe valvular or structural heart disease. + + :Measurements with Normals ?: :IVSd: 0.84 cm (0.6-1.2 cm)LVIDd: 3.9 cm(3.5-5.7 cm) ?: :LVPWd: 0.80 cm(0.6-1.1 cm)LVIDs: 3.1 cm(3.1-4.6 cm) ?: + + MMode/2D Measurements & Calculations FS: 20.8 % ?LVOT diam: 2.0 cm EDV(Teich): 65.5 ml ? LVOT area: 3.1 cm2 ESV(Teich): 37.3 ml Doppler Measurements & Calculations MV E max bogdan: ?MV dec time: ?Ao V2 max: ?LV V1 max P.3 cm/sec ?0.19 sec ?115.0 cm/sec ?2.8 mmHg MV A max bogdan: ?Ao max P.3 mmHg LV V1 mean P.7 cm/sec ?Ao V2 mean: ? 1.0 mmHg MV E/A: 1.9 ?86.1 cm/sec ? LV V1 max: ? Ao mean PG: ? 83.6 cm/sec ? 3.0 mmHg ?LV V1 mean: ? Ao V2 VTI: 23.9 cm ??51.3 cm/sec ? YASHIRA(I,D): 2.0 cm2 ?? LV V1 VTI: 14.9 cm ? YASHIRA(V,D): 2.3 cm2 ? SV(LVOT): 46.8 ml ?PA V2 max: ?RV V1 max: ? 73.8 cm/sec ? 57.4 cm/sec ? PA max PG: ? 2.2 mmHg Electronically signed by: Isac Allen MD 08/10/2023 03:36 PM Procedure Note Isac Allen MD - 08/10/2023 Adult Echocardiogram + ----- --+ :Name: SHAGUFTA LAMAR Study Date: 07/31/2023 Status: MHE: : [facility]: 62 in: : Weight: 96lbBP: 148/92 mmHg: :: 1985 Gender: Female BSA: 1.4 m2: :Reason For Study: dyspnea: :Ordering Physician: ESTHELA,: :ISAC: :Referring Physician:: :ISAC ALLEN: :JAMES: :Performed By: Michelle: :MARIANO Stoddard: + ----- --+ Procedure A two-dimensional transthoracic echocardiogram with color flow and Dopplerwas performed. The study was technically difficult due to patient's 'body habitus'. Left Ventricle The left ventricle is normal in size. There is normal left ventricularwall thickness. Left ventricular systolic function is normal. Ejection Fraction= 60-65%. The left ventricular wall motion is normal. Right Ventricle The right ventricle is normal size. There is normal right ventricularwall thickness. The right ventricular systolic function is normal. The right ventricular wall motion is normal. Atria The left atrial size is normal. Right atrial size is normal. Theinteratrial septum is intact with no evidence for an atrial septal defect. Mitral Valve The mitral valve is grossly normal. There is no mitral valve stenosis.No significant mitral regurgitation noted. Tricuspid Valve The tricuspid valve is normal. There is no tricuspid stenosis. Nosignificant tricuspid regurgitation noted. Right ventricular systolic pressure isnormal. Aortic Valve The aortic valve is trileaflet. The aortic valve opens well. No aortic stenosis . No significant aortic regurgitation noted. Pulmonic Valve The pulmonic valve is not well seen, but is grossly normal. Mildpulmonic valvular regurgitation. Great Vessels The aortic root is normal size. No obvious dissection could be visualized.IVC appears normal in size. Pericardium The pericardium appears normal. Diastology E to e' is normal. No abnormal diastolic relaxation abnormalities. Interpretation Summary Left ventricular systolic function is normal. Ejection Fraction = 60-65%. The left ventricular wall motion is normal. No abnormal diastolic relaxation abnormalities. No severe valvular or structural heart disease. + + :Measurements with Normals: :IVSd: 0.84 cm (0.6-1.2 cm)LVIDd: 3.9 cm(3.5-5.7 cm): :LVPWd: 0.80 cm(0.6-1.1 cm)LVIDs: 3.1 cm(3.1-4.6 cm): + + MMode/2D Measurements & Calculations FS: 20.8 % LVOT diam: 2.0 cm EDV(Teich): 65.5 ml LVOT area: 3.1 cm2 ESV(Teich): 37.3 ml Doppler Measurements & Calculations MV E max bogdan: MV dec time: Ao V2 max: LV V1 max P.3 cm/sec 0.19 sec 115.0 cm/sec 2.8 mmHg MV A max bogdan: Ao max P.3 mmHg LV V1 meanP.7 cm/sec Ao V2 mean: 1.0 mmHg MV E/A: 1.9 86.1 cm/sec LV V1 max: Ao mean P.6 cm/sec 3.0 mmHg LV V1 mean: Ao V2 VTI: 23.9 cm 51.3 cm/sec YASHIRA(I,D): 2.0 cm2 LV V1 VTI: 14.9cm YASHIRA(V,D): 2.3 cm2 SV(LVOT): 46.8 ml PA V2 max: RV V1 max: 73.8 cm/sec 57.4 cm/sec PA max P.2 mmHg Electronically signed by: Isac Allen MD 08/10/2023 03:36PM Isac Allen MD CV ECHO PROCEDURES Final Result documented in this encounter Visit Diagnoses Diagnosis Syncope and collapse- Primary Syncope and collapse documented in this encounter Care Teams Research Manufacturing Operator Relationship Specialty Start Date End Date Jacquie Fair MD [address] [facility] [address] [place] [id number] PCP - General Nurse Practitioner 01/31/22 documented as of this encounter
--- OUTSIDE RECORDS SUMMARY | 2024-02-27 10:22 | XMS_ITS | Encounter Summary ---
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 Not on file Not on file Not on file documented as of this encounter Plan of Treatment Not on file documented as of this encounter Visit Diagnoses Not on filedocumented in this encounter Care Teams Shooting Gallery Operator Relationship Specialty Start Date End Date Jacquie Fair MD [address] [address] PCP - General Nurse Practitioner 01/31/22 documented as of this encounter
--- OUTSIDE RECORDS SUMMARY | 2024-02-27 10:22 | XMS_ITS | Encounter Summary ---
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 Not on file Not on file Not on file documented as of this encounter Medications at Time of Discharge acetaminophen (TYLENOL) 500 mg tablet Take 2 tablets (1,000 mg total) by mouth every 6 (six) hours as needed for pain 30 tablet 08/03/2022 albuterol HFA (PROVENTIL HFA,VENTOLIN HFA,PROAIR HFA) 90 mcg/actuation inhaler Inhale 1 puff every 4 (four) hours as needed for wheezing or shortness of breath 12/12/2021 fludrocortisone 0.1 mg tablet Take 1 tablet (0.1 mg total) by mouth 2 (two) times a day 60 tablet 11 11/13/2023 [id number] n-folic acid 18-0.4 mg tablet Take by mouth PARoxetine (PAXIL) 10 mg tablet Take 1 tablet (10 mg total) by mouth every morning 30 tablet 2 11/20/2023 documented as of this encounter Discharge Disposition Disposition Code Departure Means Destination Discharge to home or self care documented in this encounter Miscellaneous Notes * Result Encounter Note - Latisha Winkler NP - 11/20/2023 11:59 PM CDT Your HPV (human papilloma virus) high risk is negative, this lowers your risk of developing advanced abnormal cells or cervical cancer in the next 5 years. We are still waiting for final results of your pap smear. If you do not receive this portion of your screening in the next 10 days please let me know. You still need to come in for your annual exam in 12 months. Latisha documented in this encounter Plan of Treatment Not on file documented as of this encounter Procedures Procedure Name Priority Date/Time Associated Diagnosis Comments HIGH RISK HPV DNA DETECTION WITH GENOTYPING Routine 11/20/2023 2:12 PM CDT Cervical cancer screening PAP AND HIGH RISK HPV, REFLEX TO GENOTYPING Routine 11/20/2023 2:12 PM CDT Cervical cancer screening documented in this encounter Results * Pap and High Risk HPV and Genotyping (Cytology Component) (11/20/2023 2:12 PM CDT) Thin prep (Pap test) 11/20/2023 2:12 PM CDT 11/20/2023 4:27 PM CDT Narrative PATHOLOGY [facility] - 11/26/2023 1:45 PM CDT EPIC results best viewed via link to PDF [facility] Neena Lamas Laboratory [place] [address] Note to Patients: This report may contain [...] Gender: ??F : ??1985 (Age: 38) Address: ??[facility] [place] ??[address] Hospital #: ??[id number] Service: ??SCREEN VENT BINDER Location: ?? Patient Type: ??[facility] SPECIMEN Taken: ??11/20/2023 Received: ??11/20/2023 Accessioned: ??11/21/2023 Reported: ??11/26/2023 Physician(s): ??Latisha Winkler, RN, SAMPLE MAKER ?? FINAL INTERPRETATION SOURCE OF SPECIMEN ? [...] this test have been verified by the [facility] Molecular Infectious Disease laboratory. Correlate with reported [...] clinical information and biopsy results as indicated. [facility] Clinical Laboratory Improvement Amendments (CLIA) mandate that cytologic and histologic results be correlated for laboratory vice president quality & improvement standards. ??FOR ALL HIGH-GRADE CASES [...] determined by the Surgical Pathology Department at [facility] as part of an ongoing automotive quality manager program and in compliance with federally mandated [...] determined by the Surgical Pathology Department of [facility]. ??It has not been cleared or approved by the U. S. Food and Drug Administration. Latisha Winkler NP LAB CYTOLOGY ORDERABLES Mary iverson Result PATHOLOGY [facility] 3rd Floor [place], [place] [phone] * High Risk HPV DNA Detection with Genotyping (Molecular component) (11/20/2023 2:12 PM CDT) HPV HR 16 Not Detected Not Detected [facility] HPV HR 18 Not Detected Not Detected [facility] HPV HR Non 16/18 Not Detected Not Detected [facility] Comment: Interpretive Data Nucleic acid amplification [...] this test have been verified by the [facility] Molecular Infectious Disease laboratory. Correlate with separately reported cytology results, as applicable. Interpretive data last revised 22 Endocervical 11/20/2023 2:12 PM CDT 11/21/2023 2:59 PM CDT Narrative [facility] - 11/22/2023 12:32 AM CDT Clinical history and diagnosis->none Number of vials->1 Testing type->Screening Last menstrual period (date if known)->10/26 Latisha Winkler SAMPLE MAKER LAB BODY FLUIDS AND STOOLS O RDERABLES Final Result [facility] Department [place] [address] [facility] documented in this encounter Visit Diagnoses Diagnosis Cervical cancer screening Screening for malignant neoplasm of the cervix documented in this encounter Care Teams Payment Rep Relationship Specialty Start Date End Date Jacquie Fair MD [address] [facility] [address] [place] [address] PCP - General Nurse Practitioner 01/31/22 documented as of this encounter
--- OUTSIDE RECORDS SUMMARY | 2024-02-27 10:22 | XMS_ITS | Encounter Summary ---
Author Organization [facility] Healthcare Address [address] [place] [address] Care Team Providers Care Art Therapist Name Role Phone Jacquie Fair MD Primary Care Provider +1- [phone] Reason for Visit * Cardiology (Routine) - Closed Specialty Diagnoses / Procedures Referred By Contmarcella t Referred To Contact Diagnoses Syncope and collapse Procedures [facility] Mobile Cardiac Telemetry Event Monitor Isac Allen MD [address] [place] [address] Phone: tel: fax: [facility] Medical Group Referral ID Status Reason Start Date Expiration Date Visits Re quested Visits Authorized [id number] Closed 07/05/2023 08/03/2024 1 1 Encounter Details Date Type Department Care Team (Latest Contact Info) Description 07/05/2023 2:45 PM CDT Ancillary Procedure [facility] Medical [facility] Cardiology [address] [facility] [address] [address] Syncope and collapse Social History Tobacco Use [...] Date Job End Date 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 Not on file Not on file Not on file documented as of this encounter Plan of Treatment Pending Results Name Type Priority Associated Diagnoses Date /Time [facility] Mobile Cardiac Telemetry Event Monitor Cardiac Services Routine Syncope and collapse 07/05/2023 2:38 PM CDT documented as of this encounter Visit Diagnoses Diagnosis Syncope and collapse documented in this encounter Care Teams Art Therapist Relationship Specialty Start Date End Date Jacquie Fair MD [address] [facility] [address] [place] [address] PCP - General Nurse Practitioner 01/31/22 documented as of this encounter
--- OUTSIDE RECORDS SUMMARY | 2024-02-27 10:22 | XMS_ITS | Encounter Summary ---
Author Organization [facility] Healthcare Address [address] [place] [address] Care Team Providers Care Sales Officer Name Role Phone Jacquie Fair MD Primary Care Provider +1- [phone] Reason for Visit * Reason Onset Date Comments Release to drive 07/31/2023 Med Refill 07/31/2023 Encounter Details Date Type Department Care Team (Late st Contact Info) Description 07/31/[address] 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 Not on file Not on file Not on file documented as of this encounter Ordered Prescriptions Prescription Sig Dispense Quantity Refills Last Filled Start Date End Date midodrine (PROAMATINE) 5 mg tabletIndications: Symptomatic Orthostatic Hypotension Take 1 tablet (5 mg total) by mouth 2 (two) times a day 180 tablet 07/31/2023 08/10/2023 documented in this encounter Miscellaneous Notes * Telephone Encounter - Siobhan Tobias - 08/13/2023 12:34 PM CDT Mailed the Medical Report for Conditions that may impair C[employer] Mill And Lathe Operator Safety form to the patient and is also scanned into media. * Telephone Encounter - Etelvina Do MA - 07/31/2023 10:51 AM CDT Please advise * Telephone Encounter - Siobhan Tobias - 07/31/2023 8:56 AM CDT Patient is getting her echo this morning and stopped by the office to find out if Dr. Allen will beable to clear her to drive after the testing is done. Patient can be reached at [phone] Patient also needs a refill on her midodrine. Does she need to do any labs before getting this refill. [facility], [address][id number]. documented in this encounter Plan of Treatment Not on file documented as of this encounter Visit Diagnoses Not on filedocumented in this encounter Discontinued Medications Medication Sig Discontinue Reason Start Date End Da te midodrine (PROAMATINE) 5 mg tabletIndications:Symptom atic Orthostatic Hypotension Take 1 tablet (5 mg total) by mouth 2 (two) times a day Reorder 07/05/2023 07/31/2023 documented as of this encounter Care Teams Sales Officer Relationship Specialty Start Date End Date Jacquie Fair MD [address] [place] [address] PCP - General Nurse Practitioner 01/31/22 documented as of this encounter
--- OUTSIDE RECORDS SUMMARY | 2024-02-27 10:22 | XMS_ITS | Encounter Summary ---
Author Organization [facility] Address [address] [place] [address] Care Team Providers Care Automatic Brine Mixer Operator Name Role Phone Jacquie Fair MD Primary Care Provider +1- [phone] Reason for Referral * Cardiology (Routine) - Closed Specialty Diagnoses / Procedures Referred By Contac t Referred To Contact Diagnoses Syncope and collapse Procedures Transthoracic Echo (TTE) Complete W Doppler/CF Isac Allen MD [address] [place] [address] [address] [address] Phone: tel: fax: [address] [address] Referral ID Status Reason Start Date Expiration Date Visits Re quested Visits Authorized [id number] Closed 07/05/2023 08/03/2024 1 1 Reason for Visit * Cardiology (Routine) - Closed Specialty Diagnoses / Procedures Referred By Contac t Referred To Contact Diagnoses Syncope and collapse Procedures Transthoracic Echo (TTE) Complete W Doppler/CF Isac Allen MD [address] [place] [address] [address] [address] Phone: tel: fax: [address] [address] Referral ID Status Reason Start Date Expiration Date Visits Re quested Visits Authorized [id number] Closed 07/05/2023 08/03/2024 1 1 Encounter Details Date Type Department Care Team (Latest Contact Info) Description 07/31/2023 8:52 AM CDT - 07/31/2023 11:59 PM CDT Hospital Encounter [facility] Cardiac Testing [address] [place] [address] Syncope and collapse Discharge Disposition: Discharge to home or self [...] Date Job End Date 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 Not on file Not [...] for wheezing or shortness of breath 12/12/2021 midodrine (PROAMATINE) 5 mg tabletIndications :Symptomatic Orthostatic Hypotension Take 1 tablet (5 mg total) by mouth 2 (two) times a day 180 tablet 07/31/2023 zolpidem (AMBIEN) 5 mg tablet Take 1 tablet (5 mg total) by mouth nightly as needed for sleep for sleep 05/28/2023 4 documented as of this encounter Discharge Disposition Disposition Code Departure Means Destination Discharge to home or self care documented in this encounter Plan of Treatment Not on file documented as of this encounter Procedures Procedure Name Priority Date/Time Associated Diagnosis Comments TRANSTHORACIC ECHO (TTE) COMPLETE W DOPPLER/CF WO CONTRAST Routine 07/31/2023 9:44 AM CDT Syncope and collapse documented in this encounter Results * TRANSTHORACIC ECHO (TTE) COMPLETE W DOPPLER/CF WO CONTRAST (07/31/2023 9:44 AM CDT) Anatomical Region Laterality Modality Ultrasound 07/31/2023 9:44 AM CDT Narrative 08/10/2023 3:36 PM CDT ? Adult Echocardiogram + ----- --+ :Name: SHAGUFTA LIN ? Study Date: 07/31/2023 ?Status: MHE ? : : ?Patient Location: E CARD^^^MHEHeight: 62 in ? : : ?Weight: 96 lbBP: 148/92 mmHg: :: 1985 ? Gender: Female ?BSA: 1.4 m2 ? : :Reason For Study: dyspnea ? : :Ordering Physician: ALLEN, ?: :HARDIKKUMAR ? : :Referring Physician: ?: :ALLEN, HARDIKKUMAR ?: :MANUBHAI ?: :Performed By: Michelle ? : :MARIANO Stoddard ?: + ----- --+ Procedure A two-dimensional [...] Adult Echocardiogram + ----- --+ :Name: SHAGUFTA LIN Study Date: 07/31/2023 Status: MHE: : Patient Location: [facility] CARD^^^MHEHeight: 62 in: : Weight: 96lbBP: 148/92 mmHg: :: 1985 Gender: Female BSA: 1.4 m2: :Reason For Study: dyspnea: :Ordering Physician: ESTHELA,: :ISAC: :Referring Physician:: :ISAC ALLEN: :JAMSE: :Performed By: Michelle: :ELENITA Stoddard: + ----- --+ Procedure A two-dimensional [...] signed by: Isac Allen MD 08/10/2023 03:36PM us Isac Allen MD CV ECHO PROCEDURES Final Result documented in this encounter Visit Diagnoses Diagnosis Syncope and collapse documented in this encounter Care Teams Automatic Brine Mixer Operator Relationship Specialty Start Date End Date Jacquie Fair MD [address] [place] [id number] PCP - General Nurse Practitioner 01/31/22 documented as of this encounter
--- OUTSIDE RECORDS SUMMARY | 2024-02-27 10:22 | XMS_ITS | Encounter Summary ---
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 Not on file Not on file Not on file documented as of this encounter Plan of Treatment Not on file documented as of this encounter Visit Diagnoses Not on filedocumented in this encounter Care Teams Openstack Cloud Consulting Architect Relationship Specialty Start Date End Date Jacquie Fair MD [address] [facility] [address] [place] [address] PCP - General Nurse Practitioner 01/31/22 documented as of this encounter
--- OUTSIDE RECORDS SUMMARY | 2024-02-27 10:22 | XMS_ITS | Encounter Summary ---
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 Not on file Not on file Not on file documented as of this encounter Miscellaneous Notes * Telephone Encounter - Latisha Winkler NP - 11/25/2023 3:58 PM CDT Indication: pelvic pain, dyspareunia Exam: Transvaginal / Transabdominal Uterine position: Anteverted Uterus size in cm: 7.7 x 5.7 x 5.1 Endometrium in mm: 10.4 - ill defined borders - hyperechoic lesion with a vascular stalk was seen and measured Fibroids in mm: 1: 33 x 26 x 25 - intramural, anterior Right Ovary size in cm: 3.8 x 2.4 x 1.5 Cyst present: solid appearing, avascular cyst Size of cyst in mm: 14 x 9 x 13 Left Ovary size in cm: 3.5 x 2.8 x 2.4 Cyst present: hyperechoic, solid appearing cyst. Likely teratoma. Size of cyst in mm: 30 x 22 x 25 Free Fluid: no Custom Protection Officer impression: Uterus appears globular and heterogenous. This is suspicious for adenomyosis. An intramural fibroidwas noted, described above. The endometrial borders are ill defined. A hyperechoic lesion with a vascular stalk was noted within the endometrium, likely endometrial polyp. Ovaries are within normal limits. Blood flow was noted in each ovary. An isoechoic, solid appearing lesion was seen on the right ovary. A hyperechoic lesion was noted on the left ovary, suspicious for teratoma. Adnexa is unremarkable. No free fluid seen. documented in this encounter Plan of Treatment Not on file documented as of this encounter Visit Diagnoses Not on filedocumented in this encounter Care Teams Station Air Traffic Control Specialist Relationship Specialty Start Date End Date Jacquie Fair MD [address] [address] PCP - General Nurse Practitioner 01/31/22 documented as of this encounter
--- OUTSIDE RECORDS SUMMARY | 2024-02-27 10:22 | XMS_ITS | Encounter Summary ---
Author Organization [facility] Healthcare Address [address] [place] [address] Care Team Providers Care Architecture Faculty Member Name Role Phone Jacquie Fair MD Primary Care Provider +1- [phone] Encounter Details Date Type Department Care Team (Late st Contact Info) Description 11/21/[address] 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 Not on file Not on file Not on file documented as of this encounter Plan of Treatment Not on file documented as of this encounter Procedures Procedure Name Priority Date/Time Associated Diagnosis Comments MEKA QUALITATIVE WITH REFLEX TO EMKA QUANTITATIVE Routine 11/21/2023 1:21 PM CDT MEKA TITER & PATTERN Routine 11/21/2023 1 :21 PM CDT THYROID FUNCTION CASCADE Routine 11/21/2023 1:21 PM CDT ERYTHROCYTE SEDIMENTATION RATE Routine 11/21/2023 1:21 PM CDT CRP (ACUTE PHASE) Routine 11/21/2023 1:2 1 PM CDT documented in this encounter Results * (ABNORMAL) Antinuclear Antibodies Titer and Pattern (11/21/2023 1:21 PM CDT) MEKA, quant 1:160(H) titer [facility] Comment: ?Reference Range ?<1:40 ?Negative ?1:40-1:80 ?Low Antibody Level ?>1:80 ?Elevated Antibody Level MEKA, pattern Nuclear, Dense Fine Speckled(A ) [facility] Comment: Dense fine speckled pattern is seen in normal individuals and rarely associated with systemic lupus erythematosis (SLE), Sjogren's syndrome and systemic sclerosis. AC-2: Dense Fine Speckled International Consensus on MEKA Patterns (https://doi.org/10.1515/dcek-5356-0658) 11/21/2023 1:21 PM CDT 11/21/2023 1:22 PM CDT us Isac Allen MD LAB BLOOD ORDERABL ES Final Result Performing Organization Address [facility] Co de Phone Number [employer] [address] [place] [address] * (ABNORMAL) MEKA ab ql w/rflx to MEKA qn (11/21/2023 1:21 PM CDT) MEKA, qual POSITIVE( A) NEGATIVE [facility] Comment: MEKA IFA is a first line screen for detecting the presence of up to approximately 150 autoantibodies in various autoimmune diseases. A positive MEKA IFA result is suggestive of autoimmune disease and reflexes to titer and pattern. Further laboratory testing may be considered if clinically indicated. For additional information, please refer to http://education.Certify/faq/HKD169 (This link is being provided for informational/ educational purposes only.) ?? 11/21/2023 1:21 PM CDT 11/21/2023 1:22 PM CDT Isac Allen MD LAB BLOOD ORDERABL ES Final Result Performing Organization Address [facility] Co de Phone Number [employer] [address] [place] [address] * Thyroid Function [place] (11/21/2023 1:21 PM CDT) Pathologist [facility] TSH 0.48 mIU/L [facility] Comment: ?Reference Range ?> or = 20 Years ??0.40-4.50 ? Ranges ?First trimester ?0.26-2.66 ?Second trimester ?? 0.55-2.73 ?Third trimester ?0.43-2.91 11/21/2023 1:21 PM CDT 11/21/2023 1:22 PM CDT Isac Allen MD LAB BLOOD ORDERABL ES Final Result Performing Organization Address City/[facility]/ZIP Co de Phone Number [facility]ST [facility] [address] [place] [address] * CRP (acute phase) (11/21/2023 1:21 PM CDT) C-RP 3.2 <8.0 mg/L [facility] 11/21/2023 1:21 PM CDT 11/21/2023 1:22 PM CDT Isac Allen MD LAB BLOOD ORDERABL ES Final Result Performing Organization Address [facility] Co de Phone Number [facility] [address] [facility] [place] [address] * Erythrocyte sedimentation rate (11/21/2023 1:21 PM CDT) Erythrocyte sedimentation rate 6 < OR = 20 mm/h [facility] 11/21/2023 1:21 PM CDT 11/21/2023 1:22 PM CDT Isac Allen MD LAB BLOOD ORDERABL ES Final Result Performing Organization Address [facility] Co de Phone Number [facility] [address] [facility] [place] [address] documented in this encounter Visit Diagnoses Not on filedocumented in this encounter Care Teams Architecture Faculty Member Relationship Specialty Start Date End Date Jacquie Fair MD [address] [place] [address] PCP - General Nurse Practitioner 01/31/22 documented as of this encounter
--- OUTSIDE RECORDS SUMMARY | 2024-02-27 10:23 | XMS_ITS | Encounter Summary ---
Author Organization [facility] Medical Group Address [address] [place] [address] Care Team Providers Care Scooping Machine Tender Name Role Phone Jacquie Fair MD Primary Care Provider +1- [phone] Encounter Details Date Type Department Care Team (Late st Contact Info) Description 06/19/2022 Telephone [facility] [address] [facility] [address] [place] [address] Bethany Martin MD [address] [facility] [address] [place], [place] [id number] Social History Tobacco Use Types Packs/Day Years Used Date Smoking Tobacco: Some Days Cigarettes 0.2 1 Comments Unknown Sex and Gender Information Value Date Recorded Sex Assigned at Not on file Legal Sex Female 1:54 PM CDT Gender Identity Not on file Sexual Orientation Not on file Occupation Industry Job Start Date Job End Date 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 Not on file Not on file Not on file documented as of this encounter Miscellaneous Notes * Telephone Encounter - Bethany Martin MD - 06/19/2022 11:09 PM CDT OR Request Form Check the box: [x] [facility] (POD 1) [] [facility] (POD4) Morgan if pre-op visit is needed: []YES -- [x]NO OR time requested: 1 hr Procedure: laparoscopic bilateral salpingectomies. Hysteroscopy, possible hysteroscopic myomectomy,novasure SILVIA Indication: menorrhagia, fibroid, fertility control Special Instruments: [x]Other : Novasure [x]Myosure [x] Ligasure IUD: []Lilleta []Mirena []Nexplanon []Paragard []Debora []Kyleena Infection Prophylaxis: []ceFazlin 2000 or 3000mg panel (for hysterectomy regardless of route) []ceFAZlin Plus medtroNIDAZOLE (for POSSIBLE colon resection) []clindamycin 900mg PLUS gentamicin 5mg/kg (for serious beta-lactam allergy and creatinine less than or equal to 1.5mg/dL) []clindamycin 900mg PLUS ciprofloxacin 400gm (for serious beta-lactam allergy and creatinine grater than 1.5 or CrCL less than 30 mL/min) Anesthesia: []Mac/ []Choice/ []Spinal/ [x]General/ []Local / []Other: CPAP: [x]YES -- []NO TPAP: []YES -- []NO Co- Scrub: []YES -- []NO []TW []BR []RGS []PAUL Post OP with: []KE [x]JS []TW []RGS []BR []KL Date & Time of Surgery: Date/Time: CPAP Appt: Insurance: Primary: Spoke to / Ref#: Precert: Secondary: Spoke to / Ref#: Precert: Pre-op sched. [] Surgery Sched.[] CPAP/TPAP[] Precert [] Equip Notified [] Post Op Appt scheduled: [] Instructions sent to pt & date: []Mailed: []My chart: Case added to Provider: [place] [] Computer Sched. Blocked: []Y --- []N documented in this encounter Plan of Treatment Not on file documented as of this encounter Visit Diagnoses Not on filedocumented in this encounter Care Teams Scooping Machine Tender Relationship Specialty Start Date End Date Jacquie Fair MD [address] [place] [address] PCP - General Nurse Practitioner 01/31/22 documented as of this encounter
--- OUTSIDE RECORDS SUMMARY | 2024-02-27 10:23 | XMS_ITS | Encounter Summary ---
Author Organization [facility] Healthcare Address [address] [place] [address] Care Team Providers Care Finance Intern Name Role Phone Jacquie Fair MD Primary Care Provider +1- [phone] Encounter Details Date Type Department Care Team (Late st Contact Info) Description 06/18/2022 Orders Only [facility] PATHOLOGY [address] [address] Bethany Martin MD [address] Brown [address] [address] Excessive bleeding in premenopausal period Social History Tobacco Use Types Packs/Day Years Used Date Smoking Tobacco: Some Days Cigarettes 0.2 1 Comments Unknown Sex and Gender Information Value Date Recorded Sex Assigned at Not on file Legal Sex Female 1:54 PM CDT Gender Identity Not on file Sexual Orientation Not on file Occupation Industry Job Start Date Job End Date 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 Not on file Not on file Not on file documented as of this encounter Plan of Treatment Not on file documented as of this encounter Procedures Procedure Name Priority Date/Time Associated Diagnosis Comments SURGICAL PATHOLOGY Routine 06/18/2022 1: 08 PM CDT Excessive bleeding in premenopausal period documented in this encounter Results * Surgical pathology (06/18/2022 1:08 PM CDT) Tissue (Endometrial biopsy) 06/18/2022 1:08 PM CDT 06/18/2022 4:19 PM CDT Narrative PATHOLOGY [facility] - 06/20/2022 1:54 PM CDT EPIC results best viewed via link to PDF [facility] of Surgical [place] [address] Note to Patients: This report may contain [...] Gender: ??F : ??1985 (Age: 36) Address: ??[address] [place] [address] ??[id number] [facility] #: ??[id number] Taken:06/18/2022 Received:06/18/2022 Reported: 06/20/2022 Patient Type: [facility] SPECIMEN ?? Service: Laboratory Location: Physician(s): ??Bethany Martin M.D. Diagnosis: Uterus, endometrium, biopsy ? - Proliferative pattern endometrium ? - No evidence of hyperplasia or malignancy sax/06/20/2022 07:27 By this signature, I attest that the above diagnosis is based upon my personal examination of the slides(and/or other material indicated in the diagnosis). Scar Victoria M.D., Ph.D. Report Electronically Reviewed and Signed Out By ??Scar Victoria M.D., Ph.D. 06/20/2022 13:54:50 Microscopic Description and Comment: Microscopic examination substantiates the above cited diagnosis. Venessa Brown M.D. History: The patient is a 36-year-old female presenting for menorrhagia. ??Operative Procedure: ??Endometrial biopsy Specimen(s) Received: A: Embx Gross Description: Received in formalin, labeled with the patient? ? s identifiers and EM Bx , is red and sheldon tissue admixed with hemorrhagic material measuring 3.0 x 2.9 x 0.1 cm in aggregate. ??Labeled A1. ??Jar 0. ?? elsw/06/18/2022 19:21 PA(s): Gabby Marks By this signature, I attest that the above diagnosis is based upon my personal examination of the slides(and/or other material). Addenda/Procedures The performance characteristics of some immunohistochemical stains, fluorescence in-situ hybridization tests and immunophenotyping by flow cytometry cited in this report (if any) were determined by the Surgical Pathology and Flow Cytometry Departments at [facility] as part of an ongoing type disk quality control supervisor program and in compliance with federally mandated [...] Surgical Pathology and Flow Cytometry Departments of [facility]. ??It has not been cleared or approved by the U. S. Food and Drug Administration. IMAGES AND SCANNED DOCUMENTS, IF INCLUDED, ONLY VIEWABLE IN PDF VERSION OF REPORT Bethany Yelena Martin MD LAB PATHOLOGY ORD ERABLES Final Result PATHOLOGY [facility] 3rd Floor [place], [place] [phone] documented in this encounter Visit Diagnoses Diagnosis Excessive bleeding in premenopausal period documented in this encounter Care Teams Finance Intern Relationship Specialty Start Date End Date Jacquie Fair MD [address] [place] [address] PCP - General Nurse Practitioner 01/31/22 documented as of this encounter
--- OUTSIDE RECORDS SUMMARY | 2024-02-27 10:23 | XMS_ITS | Encounter Summary ---
Author Organization [facility] Healthcare Address [address] [place] [address] Care Team Providers Care Running Specialist Name Role Phone Jacquie Fair MD Primary Care Provider +1- [phone] Reason for Visit * Auth/Cert (Routine) Specialty Diagnoses / Procedures Referred By Nir small Referred To Contact Diagnoses Menorrhagia with regular cycle Fibroids Unwanted fertility Menorrhagia with regular cycle [N92.0] Fibroids [D21.9] Unwanted fertility [Z30.09] Procedures SC LAPAROSCOPY W/RMVL ADNEXAL STRUCTURES SC HYSTEROSCOPY DIAGNOSTIC SEPARATE PROCEDURE SC HYSTEROSCOPY REMOVAL LEIOMYOMATA SC HYSTEROSCOPY ENDOMETRIAL ABLATION LAPAROSCOPIC SALPINGECTOMY HYSTEROSCOPY DIAGNOSTIC HYSTEROSCOPIC MYOMECTOMY - MYOSURE ABLATION UTERINE - NOVASURE Referral ID Status Reason Start Date Expiration Date Visits Re quested Visits Authorized [id number] 1 1 Encounter Details Date Type Department Care Team (Late st Contact Info) Description 08/03/2022 5:25 AM CDT - 08/03/2022 11:20 AM CDT Hospital Encounter [facility] Operating Room [address] [place] [address] Bethany Martin MD [address] [place] [address] DR Stephanie MARKHAM [address] [place] [phone] Menorrhagia with regular cycle; Fibroids; Unwanted fertility Discharge Disposition: Discharge to home or self [...] Date 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 Not on file Not on file Not on file documented as of this encounter Last Filed Vital Signs Vital Sign Reading Time Taken Comments Blood Pressure 110/75 08/03/2022 10:40 AM CDT Pulse 91 08/03/2022 10:40 AM CDT Temperature 36.8 ??C (98.2 ??F) 08/03/2022 10:40 AM C DT Respiratory Rate 20 08/03/2022 10:40 AM CDT Oxygen Saturation 100% 08/03/2022 10:40 AM CDT Inhaled Oxygen Concentration - - [...] cannot be sent through Care Everywhere. * [facility] PATHWAY TO EXCELLENT CARE AFTER SURGERY documented [...] 1 tablet (250 mcg total) by mouth selector packer before breakfast 4 ibuprofen (ADVIL,MOTRIN) 600 mg [...] 7:24 AM CDT Associated attestation - Bethany Martin, MD - 08/03/2022 7:24 AM CDT I [...] Preoperative Evaluation Record Evaluation type/location: TPAP from [facility] Planned procedure site: [facility] PVT OR (Pod 1) Date: 07/16/22 NOTE: [...] Cardiovascular Pertinent negatives: hypertension ; CAD ; NH ; CABG ; systolic/diastolic dysfunction w/o CHF [...] iron infusions and OTC supp, pt sees new vehicle sales consultant, last CBC in Care Everywhere 06/07/22=WNL) - [...] provided by telephone and electronically sent via U[employer]rella Here. Patient verbalized understanding of instructions. Blood bank [...] OF UTERUS 12/28/2020 For miscarriage ??? LAPAROSCOPY 2005 x2-2005, 2008 ??? NASAL SEPTUM SURGERY 2009 ??? OTHER [...] mg tablet Past Month -- -- Sanket Paul MD tranexamic acid (LYSTEDA) 650 mg tablet [...] * Bethany Martin MD - Primary * Dayanna Tobar MD - Assisting DATE OF SURGERY : [...] Tube Tissue Fallopian tube, non-tumor SURGICAL PATHOLOGY Behtany Martin MD 08/03/2022 0847 B : Uterine [...] Preoperative Assessment and Planning CPAP Clinic Location: [facility] The night before your surgery: * Do [...] Planning Perioperative Nursing Note Telephone Preoperative Evaluation ([facility]) - TELEPHONE ONLY, NO PHYSICAL EXAM Date: [...] 1 tablet (250 mcg total) by mouth selector packer before breakfast ibuprofen (ADVIL,MOTRIN) 400 mg tablet [...] Directive: Patient does not have advance directive Communication/Cabin Service Agent Needs Communication Needs: Glasses Assistive Devices/DME: None Hearing - Right Ear: Functional Hearing - Left Ear: Functional Discharge Planning Type of Residence: Private residence Living Arrangements: Spouse/significant other Support Systems: Spouse/significant other Patient expects to be discharged to:: Private residence NETWORK SUPPORT MANAGER NO ADDITIONAL COMMENTS/ FOLLOW UP * Pre-Procedure [...] remove nail coverings, artificial nails and nail finnish prior to the day of surgery. You should leave your valuables and any jewelry at home. No metal or piercings are allowed in the operating room. You should bring your insurance card, a photo ID (example: Multi Slide Machine Tender's License) and a method of payment for [...] Pathway to Excellent Care by the followinglink: [email or web address] How To Prepare Your Skin For Surgery [...] Remove nail coverings, artificial nails and nail finnish. The Morning of Surgery: Take a shower [...] questions, please call the CPAP Staff at [phone], Saturday-Saturday 8am-4:30pm. All patients should read the below section: All visitors/patients are being asked to wear a clean face mask when entering the hospital. COVID 19 Updates & Visitor Policy: Please access [email or web address] for the most updated information. Information on [facility] CAM & the Orthopedic Center: Please view [email or web address] (Patient & Visitor Information) for additional details regarding Advanced Directive forms, AWARE, directions, parking information, lodging, Internet access, dining and more. For MyChart information, to activate account or password recovery, please go to [email or web address] or call [phone] (toll-free: [phone]). Information for Suicide Prevention: National Suicide Prevention Lifeline (9-104- 848-SZIU (0482)). Surgery Times: For patients having surgery @ [facility] Medicine, [facility] or [facility] ([facility]), if your surgeon's office has not notified you of your surgery time by NOON THE BUSINESS DAY BEFORE your surgery, please call [phone] and ask for your surgeon's office Dr. [...] biopsy) 08/03/2022 9:11 AM CDT Narrative PATHOLOGY [facility] - 08/09/2022 10:57 AM CDT EPIC results best viewed via link to PDF [facility] Laboratory [place] [address] Note to Patients: This report may contain [...] Gender: ??F : ??1985 (Age: 36) Address: ??[facility] [place], [place] ??[address] Hospital #: ??[id number] Taken:08/03/2022 Received:08/03/2022 Reported: 08/09/2022 Patient Type: [facility] SDS ?? Service: Surgery Location: [facility] OR POD1 Physician(s): ??Bethany Martin M.D. TRICIA Rogers M.D. Diagnosis: A. Fallopian tube, right, salpingectomy [...] Report Electronically Reviewed and Signed Out By ??eTz Teresa M.D., Ph.D. 08/09/2022 10:57:28 Microscopic Description [...] an intact fimbriated end without focal lesions. ??Extended Day Teacher sections including fimbriae are submitted in cassette [...] Surgical Pathology and Flow Cytometry Departments at [facility] as part of an ongoing quality control tech program and in compliance with federally mandated [...] Surgical Pathology and Flow Cytometry Departments of [facility]. ??It has not been cleared or approved by the U. S. Food and Drug Administration. IMAGES AND SCANNED DOCUMENTS, IF INCLUDED, ONLY VIEWABLE IN PDF VERSION OF REPORT Bethany Martin MD LAB PATHOLOGY ORD ERABLES Final Result PATHOLOGY [facility] 3rd Floor [place], [place] [phone] * POCT hCG, urine (08/03/2022 5:45 AM [...] Given 08/03/2022 6:41 AM CDT 1,000 mg Carrier Fluids for Secondary Infusion - 0.9% [...] size. Flush before and after each use. documented in this encounter Discontinued Medications Medication [...] 20 mg tablet 04/13/2022 07/09/2022 HYDROcodone-acetaminoph en ([place]) 5-325 mg per tablet every 6 hours [...] as directed 04/02/2022 07/10/19 23 HYDROcodone-acetami nophen ([place]) 5-325 mg per tablet every 6 hours 23 famotidine (PEPCID) 20 mg tablet 04/13/2022 07/10/[address] (CYMBALTA) 30 mg capsule Take 1 capsule (30 mg total) by mouth daily 04/27/2022 07/10/19 doxycycline monohydrate (MONODOX) 100 mg capsule doxycycline monohydrate 100 mg capsule take 2 capsules by mouth once daily as directed for 7 days 07/10/19 clobetasoL (TEMOVATE) 0.05 % cream Apply 1 Application topically 2 (two) times a day 06/06/2022 07/10/19 cetirizine (ZyrTEC) 10 mg tablet Take 1 tablet (10 mg total) by mouth daily 04/13/2022 07/10/19 23 benzonatate (TESSALON) 200 mg capsule every 8 hours 07/10/19 acetaminophen-codei ne (TYLENOL with CODEINE #3) 300-30 mg per tablet TAKE 1 TO 2 TABLETS BY MOUTH EVERY 6 TO 8 HOURS NEEDED FOR PAIN 05/31/2022 07/10/19 added in this encounter Active and Recently [...] CRNA)0920 (Anesthesia Volume Adjustment - Provider: Domingo Blakely CRNA)1521 (Due: Stopped) Lactated Ringer's (LR) infusion [...] Yulia Salcedo RN)1021 (Given - Provider: Yulia Salcedo RN) lidocaine PF (XYLOCAINE) 10 mg/mL (1 [...] Count Last Ordered Date First Ordered Date BUPivacaine (MARCAINE) 0.25 % (2.5 mg/mL) preservative free injection 1 08/03/2022 Carrier Fluids for Secondary Infusion - 0.9% [...] chloride 0.9% flush 0.5-20 mL 1 07/10 sodium chloride 0.9% irrigation 1 sterile water irrigation 1 08/03/2022 Discharge Count Last Ordered Date First Orde red Date DISCHARGE PATIENT 1 08/03/2022 documented in this encounter Care Teams Running Specialist Relationship Specialty Start Date End Date Jacquie Fair MD [address] [address] PCP - General Nurse Practitioner 01/31/22 documented as of this encounter
--- OUTSIDE RECORDS SUMMARY | 2024-02-27 10:24 | XMS_ITS | Encounter Summary ---
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 Not on file Not on file Not on file documented as of this encounter Medications at Time of Discharge albuterol HFA (PROVENTIL HFA,VENTOLIN HFA,PROAIR HFA) 90 mcg/actuation inhaler Inhale 1 puff every 4 (four) hours as needed for wheezing or shortness of breath 12/12/2021 acetaminophen-codei ne (TYLENOL with CODEINE #3) 300-30 mg per tablet TAKE 1 TO 2 TABLETS BY MOUTH EVERY 6 TO 8 HOURS NEEDED FOR PAIN 05/31/2022 05/01/20 23 cetirizine (ZyrTEC) 10 mg tablet Take 1 tablet (10 mg total) by mouth daily 04/13/2022 07/10/19 23 clobetasoL (TEMOVATE) 0.05 % cream Apply 1 Application topically 2 (two) times a day 06/06/2022 07/10/19 23 cyanocobalamin (Vitamin B-12) 250 mcg tabletIndications:P revention of Vitamin B12 Deficiency Take 1 tablet (250 mcg total) by mouth termite inspector before breakfast 06/03/19 24 diazePAM (VALIUM) 5 mg tablet Take 1 tablet (5 mg total) by mouth every 6 (six) hours as needed for anxiety or sleep 05/31/2022 07/10/[address] (CYMBALTA) 30 mg capsule Take 1 capsule (30 mg total) by mouth daily 04/27/2022 07/10/19 23 famotidine (PEPCID) 20 mg tablet 04/13/2022 07/10/19 23 methylPREDNISolone (MEDROL DOSEPACK) 4 mg Dosepack as directed 04/02/2022 07/10/19 23 ondansetron ODT (ZOFRAN-ODT) 4 mg disintegrating tablet 04/13/2022 07/10/19 23 tranexamic acid (LYSTEDA) 650 mg tabletIndications:H eavy menstrual bleeding Take 2 tablets by mouth every 6-8 hrs (3 times a day) starting with onset of period for 5 days. 30 tablet 11 01/31/2022 06/03/19 24 triamcinolone (KENALOG) 0.1 % creamIndications:Sk in Inflammation Apply 1 g topically 2 (two) times a day 04/02/2022 06/03/19 24 ubrogepant (UBRELVY) 100 mg tablet Take 1 tablet (100 mg total) by mouth daily as needed for migraine 04/13/2022 07/10/19 23 zolpidem (AMBIEN) 5 mg tablet Take 1 tablet (5 mg total) by mouth 04/13/2022 07/10/19 23 documented as of this encounter Discharge Disposition Disposition Code Departure Means Destination Discharge to home or self care documented in this encounter Plan of Treatment Not on file documented as of this encounter Visit Diagnoses Not on filedocumented in this encounter Care Teams Nut Tightener Relationship Specialty Start Date End Date Jacquie Fair MD [address] [address] PCP - General Nurse Practitioner 01/31/22 documented as of this encounter
--- OUTSIDE RECORDS SUMMARY | 2024-02-27 10:24 | XMS_ITS | Encounter Summary ---
Author Organization [facility] Address [address] [facility] [address] [place] [address] Care Team Providers Care Job Developer For Deaf Adults Name Role Phone Jacquie aFir MD Primary Care Provider [phone]- [phone] Reason for Referral * Procedure (Routine) - Closed Specialty Diagnoses / Procedures Referred By Nir t Referred To Contact Diagnoses Excessive bleeding in premenopausal period Procedures Endometrial Biopsy Only Bethany Martin MD [address] [place], [place] [address]JENNIFER MARKHAM [address] [place] [address] Phone: tel: fax: [facility] Referral ID Status Reason Start Date Expiration Date Visits Re quested Visits Authorized [id number] Closed 06/18/2022 07/18/2023 1 1 Reason for Visit * Reason Comments Follow-up F/u on ultrasound an d excessive bleeding. Pt states she want to discuss hysterotomy. Encounter Details Date Type Department Care Team (Late st Contact Info) Description 06/18/2022 11:15 AM CDT Office Visit [facility] [address] [place] [address] Bethany Martin MD [address] [place] [address] [address] Stephanie MARKH[address] [place] [address] Excessive bleeding in premenopausal period (Primary Dx); Uterine leiomyoma, unspecified location Social History Tobacco Use Types Packs/Day Years Used Date Smoking Tobacco: Some Days Cigarettes 0.2 1 Tobacco Cessation:Ready to Q uit: Not Asked; Counseling Given: Not Answered Comments Unknown Sex and Gender Information Value Date Recorded Sex Assigned at Not on file Legal Sex Female 1:54 PM CDT Gender Identity Not on file Sexual Orientation Not on file Occupation Industry Job Start Date Job End Date 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 Not on file Not on file Not on file documented as of this encounter Last Filed Vital Signs Vital Sign Reading Time Taken Comments Blood Pressure 110/70 06/18/2022 11:06 AM CDT Pulse - - Temperature - - Respiratory Rate - - Oxygen Saturation - - Inhaled Oxygen Concentration - - Weight 44.2 kg (97 lb 6.4 oz) 06/18/2022 11:06 A M CDT Height 157.5 cm (5' 2 ) 06/18/2022 11:06 AM CDT Body Mass Index 17.81 06/18/2022 11:06 AM CDT documented in this encounter Progress Notes * Bethany Martin MD - 06/18/2022 11:15 AM CDT Images from the original note were not included. 06/18/2022 Shagufta Lamar 1985 Chief Complaint Patient presents with ??? Follow-up F/u on ultrasound and excessive bleeding. Pt states she want to discuss hysterotomy. HPI H/o menorrhagia Was to get SILVIA 2020 but did not Was a dr HAYNES pt and scheduled for hystero w/ SILVIA [address] HAYNES had a suddent departure Using Lysteda currently Q 31 days and last 7-10 days with lysteda. Uses ultra tampon with an overnight pad and that would get about 1.5 hours Stated getting so heavy 2020. No nose bleeding. No anal bleeding.no gum bleeding. Were not heavy as a girl or puberty Hx of NANCY 2 in 2009 treated with a LEEP. Normal paps since. Last H/H 11.6/35.9 on 01/16/22. Iron was 21. Sees heme and gets iron infusions as needed----last wasbefore starting lysteda (4 months) Has mirena IUD between ectopic pregnancies-----does not remember how periods were but got with it in place. Had back pain '100% of hte time Stopped cymbalta a few weeks ago Tried to have Embx in office and it did not go well in office Review of Systems Also see HPI Menstrual History: Patient's last menstrual period was 06/04/2022 (approximate). OB History 6 Para 3 Term 2 1 AB 3 Living 3 SAB 1 IAB Ectopic 2 Multiple Live Births 3 # Outcome Date GA Labor/2nd Weight Sex Delivery Anes PTL Lv A1 A5 1 Term 07/21/05 F Vag-Vacuum Living 2 Ectopic 2006 3 03/01/08 35w0d M CS-Unspec Living Complications: Cephalopelvic Disproportion 4 Ectopic 2008 5 Term 10/01/18 M Living 6 2020 D&C Obstetric Comments 2006 Ectopic spontaneously expelled out of the tube. 2008 Ectopic required left salpingectomy due to rupture. 02/2008 complicated by polyhydramnios, PTL. for FTP. Problem list, medical and surgical history, allergies and meds were reivewed Vitals: 06/18/22 1106 BP: 110/70 BP Location: Left arm Patient Position: Sitting Weight: 97 lb 6.4 oz (44.2 kg) Height: 157.5 cm (5' 2 ) Body mass index is 17.81 kg/m??. Physical Exam Vitals reviewed. Constitutional: General: She is not in acute distress. Appearance: Normal appearance. She is well-developed. Abdominal: Tenderness: There is no abdominal tenderness. There is no guarding or rebound. Genitourinary: General: Normal vulva. Exam position: Lithotomy position. Labia: Right: No tenderness or lesion. Left: No tenderness or lesion. Vagina: No vaginal discharge. Cervix: No cervical motion tenderness, discharge or friability. Uterus: Normal. Not tender. Adnexa: Right: No mass or tenderness. Left: No mass or tenderness. Lymphadenopathy: Lower Body: No right inguinal adenopathy. No left inguinal adenopathy. Skin: Comments: Diffuse small scaly lesions and patches on arms/legs/torso. None on vulva Neurological: Mental Status: She is alert. Psychiatric: Behavior: Behavior normal. EXAM DESCRIPTION: US PELVIS W ENDOVAGINAL REASON FOR STUDY: Menorrhagia. LMP approximally 03/09/2022 TECHNIQUE: Grayscale ultrasound of the pelvic contents was performed with transabdominal and transvaginal transducer. COMPARISON: None FINDINGS: UTERUS: The uterus is anteverted measuring 6.4 x 4.3 x 6.3 cm on transabdominal imaging. There is heterogeneity of the myometrium noted. Visualization somewhat limited on transabdominal imaging. There is a uterine fibroid anteriorly measuring 2.6 x 2.0 x 2.7 cm. This does appear to exert some mass effect upon the endometrium. ENDOMETRIUM: The endometrium measures 6 mm in thickness. RIGHT OVARY: The right ovary measures 3.4 x 1.9 x 2.4 cm. There is documentation of color Doppler flow in the right ovary. Probable corpus luteal cyst within the right ovary noted, measuring up to 1.5 x 1.6 x 1.3 cm. LEFT OVARY: The left ovary measures 2.6 x 1.3 x 3.2 cm. There is documentation of color Doppler flow in the left ovary. The left ovary appears unremarkable. PELVIC FLUID: There is a small amount of free fluid in the cul-de-sac, physiologic in amount. OTHER: No other significant findings. IMPRESSION: 1. Fibroid within the anterior myometrium measuring 2.7 cm. 2. Probable corpus luteal cyst within the right ovary measuring 1.6 cm. 3. Endometrium normal in thickness. Mild mass effect upon the anterior aspect of the endometrium by the above-mentioned fibroid. 4. Left ovary unremarkable. THIS IS AN ELECTRONICALLY VERIFIED FINAL REPORT 03/27/2022 2:09 PM - Electronically signed by Jada Granados M.D. 06-07- WBC 4.0 - 10.0 10*3/uL 8.1 HGB 11.2 - 15.7 g/dL 13.6 HCT 34.1 - 44.9 % 39.1 PLT 163 - 369 10*3/uL 277 Assessment/Plan Diagnoses and all orders for this visit: Excessive bleeding in premenopausal period (Primary) - POCT hCG, urine - Surgical pathology; Future - Endometrial Biopsy Only Uterine leiomyoma, unspecified location Reviewed with pt step 1 is to prove no hyperplasia or EM cancer. Recommend EMBx. She agrees and wants BRITTNEY. Will add on after today's visit --message to MA to set up Discussed fibroid location and appears very new EC but unclear if truly SMF based on images reviewed in PACs in system (see 1 image above). Discussed if SMF possible hysteroscopic myomectomy could improve bleeding. Does not want pills or IUC-levo. Discussed hysterectomy and SILVIA mostly. Brochure for novasure given and reviewed. R/B reviewed. No h/o myomectomy or classical c/S. Bleeding expectations reviewed. Limited uterine sampling after. Failure goes up the longer hte reproductiveremaining years are. Discussed with diagram hysterectomy. Pt very concerned about vaginal shortening or tightening vagina---states already feels like vagina is to short for her partner's penis and if any shorted or less longitudinal laxity it would be really a problem for them. This makes her nervous about a hysterectomy. Discussed JENA, although w/ h/o CIN2 would typically do a TLH. She would like to try something less invasive and that does not risk her vaginal length. She would also like to have other tube removed so does not have to worry abotu contraception. Positive never wants to be preg again. No fear of regret. No social situation would change that. insurance. Ultimately we agree on a EUA, hysteroscopy, endometrial ablation, possible polypor SMF resection and laparoscopic removal of tubes (already missing right one it seems based on story around ectopic, but will remove stumps/fimbria if identified). Consent completed and sent to scan Surgery request made Will do Embx today pre-SILVIA My total encounter time on 06/18/2022 was 30 minutes which was spent in the activities documented inthe note. This includes time spent prior to the visit and after the visit in direct care of the patient. This time does not include time spent in any separately reportable services. Bethany Martin MD * Bethany Martin MD - 06/18/2022 11:15 AM CDTAssociated Order(s): Endometrial Biopsy Only Post-Procedure Diagnose(s): Excessive bleeding in premenopausal period 06/18/22 Endometrial Biopsy Only Performed by: Bethany Martin MD Authorized by: Bethany Martin MD Consent Given by: Patient Verbal consent obtained: Yes Preparation: Patient was prepped using a clean technique Indications: Other disorder of menstruation and other abnormal bleeding from female genital tract A bivalve speculum was placed in the vagina: yes Cervix cleaned and prepped: yes Uterus sound depth (cm): 7 Specimen collected: specimen collected and sent to pathology Findings: Uterus size: Non-gravid Cervix: normal documented in this encounter Plan of Treatment Not on file documented as of this encounter Procedures Procedure Name Priority Date/Time Associated Diagnosis Comments POCT HCG, URINE Routine 06/18/2022 12:14 PM CDT Excessive bleeding in premenopausal period CA ENDOMETRIAL BX W/WO ENDOCERVIX BX W/O DILAT SPX Routine 06/18/2022 11:15 AM CDT Excessive bleeding in premenopausal period documented in this encounter Results * Surgical pathology (06/18/2022 1:08 PM CDT) Tissue (Endometrial biopsy) 06/18/2022 1:08 PM CDT 06/18/2022 4:19 PM CDT Narrative PATHOLOGY BJ - 06/20/2022 1:54 PM CDT EPIC results best viewed via link to PDF [facility] [place] [address] Note to Patients: This report may contain [...] PATHOLOGY REPORT FINAL Patient Name: ?? SHAGUFTA LAMAR Gender: ??F : ??1985 (Age: 36) Address: ??[address] [place] [place], [place] ??[address] Hospital #: ??[id number] Taken:06/18/2022 Received:06/18/2022 Reported: 06/20/2022 Patient Type: [facility] ?? Service: Laboratory Location: Physician(s): ??Bethany Martin M.D. Diagnosis: Uterus, endometrium, biopsy ? - Proliferative pattern endometrium ? - No evidence of hyperplasia or malignancy saxad/06/20/2022 07:27 By this signature, I attest that [...] Surgical Pathology and Flow Cytometry Departments at [facility] as part of an ongoing quality assurance intern program and in compliance with federally mandated regulations drawn from the Clinical Laboratory Improvement Act of 1988 (CLIA '). ??Some of these tests rely on the [...] Surgical Pathology and Flow Cytometry Departments of [facility]. ??It has not been cleared or approved by the U. S. Food and Drug Administration. IMAGES AND SCANNED DOCUMENTS, IF INCLUDED, ONLY VIEWABLE IN PDF VERSION OF REPORT Bethany Martin MD LAB PATHOLOGY ORD ERABLES Final Result PATHOLOGY [facility] 3rd Floor [place], [place] [phone] * POCT hCG, urine (06/18/2022 12:14 PM CDT) HCG, ur, POC Negative Lot Number [id number] QC Backgroud Clear Acceptable QC Control Line Acceptable Urine 06/18/2022 12:1 4 PM CDT Bethany Martin MD POINT OF CARE SANDRA T ORDERABLES Final Result * CA ENDOMETRIAL BX W/WO ENDOCERVIX BX W/O DILAT SPX (06/18/2022 11:15 AM CDT) Narrative Bethany Martin MD - 06/18/2022 11:15 AM CDT Bethany Martin MD ? 06/19/2022 11:12 PM Endometrial Biopsy Only Performed by: Bethany Martin MD Authorized by: Bethany Martin MD Consent Given by: ??Patient Verbal consent obtained: Yes ?? Preparation: Patient was prepped using a clean technique ?? Indications: Other disorder of menstruation and other abnormal bleeding from female genital tract ?? A bivalve speculum was placed in the vagina: yes ?? Cervix cleaned and prepped: yes ?? Uterus sound depth (cm): ??7 Specimen collected: specimen collected and sent to pathology ?? Findings: Uterus size: ??Non-gravid Cervix: normal ?? Bethany Yelena Martin MD IN CLINIC/BEDSIDE ORDERABLES Final Result documented in this encounter Visit Diagnoses Diagnosis Excessive bleeding in premenopausal period- Primary Uterine leiomyoma, unspecified location Excessive bleeding in premenopausal period documented in this encounter Discontinued Medications Medication Sig Discontinue Reason Start Date End Da te DULoxetine DR (CYMBALTA) 60 mg capsule Take 60 mg by mouth daily Therapy completed 04/13/2021 06/18/2022 documented as of this encounter Historical Medications * This list may reflect changes made after this encounter. diazePAM (VALIUM) 5 mg tablet Take 1 tablet (5 mg total) by mouth every 6 (six) hours as needed for anxiety or sleep 05/31/2022 07/09/2022 added in this encounter Care Teams Job Developer For Deaf Adults Relationship Specialty Start Date End Date Jacquie Fair MD [address] [address] PCP - General Nurse Practitioner 01/31/22 documented as of this encounter
--- OUTSIDE RECORDS SUMMARY | 2024-02-27 10:25 | XMS_ITS | Encounter Summary ---
Author Organization [facility] Address [address] [facility] [address] [place] [address] Care Team Providers Care Telephone Technician Name Role Phone Jacquie Fair MD Primary Care Provider [phone]- [phone] Reason for Visit * Reason Comments Menorrhagia Menorrhagia Encounter Details Date Type Department Care Team (Late st Contact Info) Description 01/31/2022 1:30 PM PROCESS CONTROL MANAGER Office Visit [facility] Gynecology at [facility] [address] [address] [place] [id number] [place] [id number] Menorrhagia with regular cycle (Primary Dx); Fibroids Social History Tobacco Use Types Packs/Day Years [...] Date Job End Date 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 Not on file Not on file Not on file documented as of this encounter Last Filed Vital Signs Vital Sign Reading Time Taken Comments Blood Pressure 106/75 01/31/2022 1:10 PM PROCESS CONTROL MANAGER Pulse 111 01/31/2022 1:10 PM PROCESS CONTROL MANAGER Temperature - - Respiratory Rate - - Oxygen Saturation - - Inhaled Oxygen Concentration - - Weight 43.3 kg (95 lb 6.4 oz) 01/31/2022 1:10 PM PROCESS CONTROL MANAGER Height 157.5 cm (5' 2 ) 01/31/2022 1:10 PM PROCESS CONTROL MANAGER Body Mass Index 17.45 01/31/2022 1:10 PM PROCESS CONTROL MANAGER documented in this encounter Patient Instructions * Patient Instructions* Frida Arias MD - 01/31/2022 1:30 PM PROCESS CONTROL MANAGER Please start taking the tranexamic acid 650 mg, 2 tablets 3 times a day for 5 days as soon as possible. You will repeat this with every menstrual period to try to decrease your menstrual bleeding. We discussed an endometrial ablation. Dr. Arias's MA, Neida, will need to check with your insurance company for coverage of your surgery. She will then check with [facility] surgery department for available dates and times. She will then call you to schedule your surgery. This process usually takes a week or more to complete. Thank you for your patience. ESS CONTROL MANAGER documented in this encounter Ordered Prescriptions Prescription Sig Dispense Quantity Refills Last Filled Start Date End Date tranexamic acid (LYSTEDA) 650 mg tabletIndications: Heavy menstrual bleeding Take 2 tablets by mouth every 6-8 hrs (3 times a day) starting with onset of period for 5 days. 30 tablet 11 01/31/2022 4 documented in this encounter Progress Notes * Frida Arias MD - 01/31/2022 1:30 PM CST MACHINE CRATER visit note Chief Complaint: Chief Complaint Menorrhagia Subjective: Shagufta Lamar is a 36 y.o. year old white female. . LMP 01/31/22. Contraception: nothing/NFP. PMHX: Fibromyalgia, asthma, gastritis. She presents for a consultation re: menorrhagia. She was going to be scheduled for an endometrial ablation in late 2020, but her [employer] was transferred before this could be done. Reports pelvic ultrasound showed a small fibroid. Does not think an endometrial biopsy had been done yet. Hx of NANCY 2 in 2009 treated with a LEEP. Normal paps since. Last H/H 11.6/35.9 on 01/16/22. Iron was 21. Has appt today for IV iron infusion. 12/22/20 pelvic ultrasound at [facility]: Uterus measurement: 9.4 x 6.1 x 5.0 cm. Endometrium measurement: 8 mm Interval removal of the gestational sac. Endometrium is mildly heterogeneous with no abnormal bloodflow or debris. 2.3 x 2.2 x 1.8 cm anterior fundal fibroid. Adnexa: The ovaries are not seen. Free fluid: None. Urinary bladder: Negative She had problems with remembering to take BCPs. She had amenorrhea with Depo- Provera, but did not like being on Depo-Provera. She does not recall trying tranexamic acid. RX tranexamic acid 650 mg, 2 p.o. TID w/onset of menses x 5 days. She will take this with each menses until she can get the endometrial ablation done. Her menstrual flow was to heavy today to allow a Pap smear or endometrial biopsy. She will return to have these done preoperatively. She has a pelvic ultrasound scheduled for 03/27/22 at [facility]. She was anxious when she her that I do this under anesthesia, but explained that it is usually justIV anesthesia to help her relax along with a paracervical block. Menstrual History: Menarche Age: 16 years Patient's last menstrual period was 01/31/2022. Period Cycle (Days): (31-32) Period Duration (Days): (5-7) Period Pattern: Regular Menstrual Flow: Heavy Menstrual Control: Maxi pad, Tampon Menstrual Control Change Freq (Hours): On heaviest days (2-4) changes ultra- tampons every 1.5 hrs w/overnight pad for backup w/1-2 PM changes. Has to sleep on chucks/pads. By day 5 flow is salon/spa manager. No IMB. Dysmenorrhea: (!) Mild (No OTC RX needed.) Dysmenorrhea Symptoms: Cramping Sexual History: Sexual History Gender of sexual partners: Men (With since 2017. Has introital dyspareunia, does best w/sexon her side with rear entry. No coital bleeding.) Sexually Transmitted Infection History: None OB History [...] 02/2008 complicated by polyhydramnios, PTL. for FTP. There is no problem list on file for this patient. History reviewed. No pertinent past medical history. Past Surgical History: Procedure Laterality Date DILATION AND CURETTAGE OF UTERUS 12/28/2020 For miscarriage Social History Tobacco Use Smoking status: Some Days Packs/day: 0.15 Years: 1.00 Pack years: 0.15 Types: Cigarettes Smokeless tobacco: None Substance and Sexual Activity Drug use: Never Sexual activity: Yes Partners: Male Alcohol Use: Not on file Allergies: Allergies Allergen Reactions Cephalosporins Diarrhea and Vomiting CDIF CDIF Codeine Seizures, Other (See comments) and Unknown Latex Rash Medications: Current Outpatient Medications: albuterol HFA (PROVENTIL HFA,VENTOLIN HFA,PROAIR HFA) 90 mcg/actuation inhaler, INHALE 2 PUFFS INTOTHE LUNGS EVERY 4 HOURS NEEDED FOR WHEEZING OR SHORTNESS OF BREATH, Disp: , Rfl: cyanocobalamin (Vitamin B-12) 250 mcg tablet, Take by mouth, Disp: , Rfl: DULoxetine DR (CYMBALTA) 60 mg capsule, Take 60 mg by mouth daily, Disp: , Rfl: tranexamic acid (LYSTEDA) 650 mg tablet, Take 2 tablets by mouth every 6-8 hrs (3 times a day) starting with onset of period for 5 days., Disp: 30 tablet, Rfl: 11 History reviewed. No pertinent family history. Review of Systems: Review of Systems Constitutional: Negative for activity change, chills and fever. Respiratory: Negative for chest tightness and shortness of breath. Breasts: Soft, non-tender, no masses, lesions or nipple discharge. Cardiovascular: Negative for chest pain. Gastrointestinal: Negative for abdominal pain, constipation and diarrhea. Genitourinary: Positive for menstrual problem. Negative for dysuria and genital sores. No abnormal vaginal discharge or vaginitis symptoms. Neurological: Negative for headaches. Psychiatric/Behavioral: Negative for dysphoric mood and sleep disturbance. Objective: BP 106/75 (BP Location: Right arm, Patient Position: Sitting) Pulse 111 Ht 157.5 cm (5' 2 ) Wt 43.3 kg (95 lb 6.4 oz) LMP 01/31/2022 BMI 17.45 kg/m?? Physical Exam Constitutional: General: She is not in acute distress. Appearance: Normal appearance. She is well-developed. She is not ill-appearing. HENT: Head: Normocephalic. Eyes: Conjunctiva/sclera: Conjunctivae normal. Pupils: Pupils are equal, round, and reactive to light. Neck: Thyroid: No thyromegaly. Cardiovascular: Rate and Rhythm: Normal rate and regular rhythm. Heart sounds: Normal heart sounds. Pulmonary: Effort: Pulmonary effort is normal. Breath sounds: Normal breath sounds. Abdominal: General: Bowel sounds are normal. Palpations: Abdomen is soft. There is no mass. Genitourinary: General: Normal vulva. Labia: Right: No rash or lesion. Left: No rash or lesion. Vagina: Bleeding present. Cervix: No discharge or friability. Uterus: Normal. Not enlarged, not tender and no uterine prolapse. Adnexa: Right: No mass or tenderness. Left: No mass or tenderness. Comments: Uterus normal size, anteverted. Musculoskeletal: General: Normal range of motion. Cervical back: Normal range of motion and neck supple. Lymphadenopathy: Cervical: No cervical adenopathy. Lower Body: No right inguinal adenopathy. No left inguinal adenopathy. Skin: General: Skin is warm and dry. Neurological: Mental Status: She is alert and oriented to person, place, and time. Psychiatric: Mood and Affect: Mood normal. Behavior: Behavior normal. Assessment and Plan: Shagufta Lamar is a 36 y.o. female Shagufta was seen today for menorrhagia. Diagnoses and all orders for this visit: Menorrhagia with regular cycle Comments: Due to submucosal fibroid?Will try tranexamic acid.Desires uterine endometrial ablation.Check preopPap & EMB.Discussed 50% amenorrhea/50% decreased flow. Fibroids Comments: Patient is aware of the benign pathophysiology of uterine fibroids. Other orders - tranexamic acid (LYSTEDA) 650 mg tablet; Take 2 tablets by mouth every 6-8 hrs (3 times a day) starting with onset of period for 5 days. My total encounter time on 01/31/2022 was 45 minutes which was spent in the activities documented in the note. This includes time spent prior to the visit and after the visit in direct care of the patient. This time does not include time spent in any separately reportable services. Frida Arias MD 01/31/2022 ESS CONTROL MANAGER documented in this encounter Plan of Treatment Not on file documented as of this encounter Visit Diagnoses Diagnosis Menorrhagia with regular cycle- Primary Fibroids Leiomyoma of uterus, unspecified documented in this encounter Historical Medications * This list may reflect changes made after this encounter. albuterol HFA (PROVENTIL HFA,VENTOLIN HFA,PROAIR HFA) 90 mcg/actuation inhaler Inhale 1 puff every 4 (four) hours as needed for wheezing or shortness of breath 12/12/[address] (CYMBALTA) 60 mg capsule Take 60 mg by mouth daily 04/13/2021 3 cyanocobalamin (Vitamin B-12) 250 mcg tabletIndication s:Prevention of Vitamin B12 Deficiency Take 1 tablet (250 mcg total) by mouth firer tunnel kiln before breakfast 4 added in this encounter Care Teams Telephone Technician Relationship Specialty Start Date End Date Jacquie Fair MD [address] [place] [id number] PCP - General Nurse Practitioner 01/31/22 documented as of this encounter
--- OUTSIDE RECORDS SUMMARY | 2024-02-27 10:25 | XMS_ITS | Encounter Summary ---
Author Organization [facility] Healthcare Address [address] [place] [address] Care Team Providers Care Parcel Post Order Clerk Name Role Phone Jacquie Fair MD Primary Care Provider [phone]- [phone] Reason for Visit * Diagnostic Imaging (Routine) - Closed Specialty Diagnoses / Procedures Referred By Contmarcella t Referred To Contact Diagnoses Menorrhagia with regular cycle Procedures US Pelvis W Endovaginal [place] [id number] [address] Phone: tel: fax: [facility] Referral ID Status Reason Start Date Expiration Date Visits Re quested Visits Authorized [id number] Closed 11/02/2021 12/02/2022 1 1 Encounter Details Date Type Department Care Team (Latest Contact Info) Description 03/27/2022 7:53 AM SEWAGE RETICULATION DRAFTING OFFICER - 03/27/2022 11:59 PM SEWAGE RETICULATION DRAFTING OFFICER Hospital Encounter [facility] [address] [place] [address] Menorrhagia with regular cycle Discharge Disposition: Discharge to home or self [...] Date Job End Date 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 Not on file Not on file Not on file documented as of this encounter Medications at Time of Discharge albuterol HFA (PROVENTIL HFA,VENTOLIN HFA,PROAIR HFA) 90 mcg/actuation inhaler Inhale 1 puff every 4 (four) hours as needed for wheezing or shortness of breath 12/12/2021 cyanocobalamin (Vitamin B-12) 250 mcg tabletIndication s:Prevention of Vitamin B12 Deficiency Take 1 tablet (250 mcg total) by mouth inbound customer service agent before breakfast [address] (CYMBALTA) 60 mg capsule Take 60 mg by mouth daily 04/13/2021 3 tranexamic acid (LYSTEDA) 650 mg tabletIndication s:Heavy menstrual bleeding Take 2 tablets by mouth every 6-8 hrs (3 times a day) starting with onset of period for 5 days. 30 tablet 11 01/31/2022 4 documented as of this encounter Discharge Disposition Disposition Code Departure Means Destination Discharge to home or self care documented in this encounter Plan of Treatment Not on file documented as of this encounter Procedures Procedure Name Priority Date/Time Associated Diagnosis Comments US PELVIS W ENDOVAGINAL Schedule Routine, Read Routine (OP Routine) 03/27/2022 10:00 AM SEWAGE RETICULATION DRAFTING OFFICER Menorrhagia with regular cycle documented in this encounter Results * US Pelvis W Endovaginal (03/27/2022 10:00 AM SEWAGE RETICULATION DRAFTING OFFICER) Anatomical Region Laterality Modality Pelvis N/A Ultrasound 03/27/2022 2:04 PM SEWAGE RETICULATION DRAFTING OFFICER Narrative 03/27/2022 2:09 PM SEWAGE RETICULATION DRAFTING OFFICER EXAM DESCRIPTION: ?? US PELVIS W ENDOVAGINAL REASON FOR STUDY: ?? Menorrhagia. ??LMP approximally 03/09/2022 TECHNIQUE: Grayscale ultrasound of the pelvic contents was performed with ?? transabdominal and transvaginal ??transducer. ?? COMPARISON: ?? None FINDINGS: UTERUS: ?? The uterus is anteverted measuring 6.4 x 4.3 x 6.3 cm on transabdominal imaging. ??There is heterogeneity of the myometrium noted. ?? Visualization somewhat limited on transabdominal imaging. ??There is a uterine fibroid anteriorly measuring 2.6 x 2.0 x 2.7 cm. ??This does appear to exert some mass effect upon the endometrium. ENDOMETRIUM: The endometrium measures ?? 6 mm ??in thickness. RIGHT OVARY: The right ovary measures ?? 3.4 x 1.9 x 2.4 ??cm. ?? There is documentation of color Doppler flow in the right ovary. ??Probable corpus luteal cyst within the right ovary noted, measuring up to 1.5 x 1.6 x 1.3 cm. LEFT OVARY: The left ovary measures ?? 2.6 x 1.3 x 3.2 ??cm. ?? There is documentation of color Doppler flow in the left ovary. ??The left ovary appears unremarkable. PELVIC FLUID: ?? There is a small amount of free fluid in the cul-de-sac, physiologic in amount. OTHER: ?? No other significant findings. IMPRESSION: ?? 1. ?? Fibroid within the anterior myometrium measuring 2.7 cm. 2. ?? Probable corpus luteal cyst within the right ovary measuring 1.6 cm. 3. ?? Endometrium normal in thickness. ??Mild mass effect upon the anterior aspect of the endometrium by the above-mentioned fibroid. 4. ?? Left ovary unremarkable. THIS IS AN ELECTRONICALLY VERIFIED FINAL REPORT 03/27/2022 2:09 PM - Electronically signed by ??Jada Granados M.D. TW: TW D: ??03/27/2022 2:09 PM T: ??03/27/2022 2:09 PM Report ID: [id number] Reading Location: ??[id number] Procedure Note Jada Granados MD - 03/27/2022 EXAM DESCRIPTION: US PELVIS W ENDOVAGINAL REASON FOR STUDY: Menorrhagia. LMP approximally 03/09/2022 TECHNIQUE: Grayscale ultrasound of the pelvic contents was performed with transabdominal and transvaginal transducer. COMPARISON: None FINDINGS: UTERUS: The uterus is anteverted measuring 6.4 x 4.3 x 6.3 cm on transabdominal imaging. There is heterogeneity of the myometrium noted. Visualization somewhat limited on transabdominal imaging. There is auterine fibroid anteriorly measuring 2.6 x 2.0 x 2.7 cm. This does appear toexert some mass effect upon the endometrium. ENDOMETRIUM: The endometrium measures 6 mm in thickness. RIGHT OVARY: The right ovary measures 3.4 x 1.9 x 2.4 cm. There is documentation of color Doppler flow in the right ovary. Probable corpus luteal cyst within the right ovary noted, measuring up to 1.5 x 1.6 x 1.3cm. LEFT OVARY: The left ovary measures 2.6 x 1.3 x 3.2 cm. There is documentation of color Doppler flow in the left ovary. The left ovaryappears unremarkable. PELVIC FLUID: There is a small [...] - Electronically signed by Jada Granados M.D. TW: TW Report ID: [id number] Reading Location: [id number] Frida Arias MD [facility] [place] Final Result documented in this encounter Visit Diagnoses Diagnosis Menorrhagia with regular cycle documented in this encounter Care Teams Parcel Post Order Clerk Relationship Specialty Start Date End Date Jacquie Fair MD [address] [place] [id number] PCP - General Nurse Practitioner 01/31/22 documented as of this encounter
--- OUTSIDE RECORDS SUMMARY | 2024-02-27 10:25 | XMS_ITS | Encounter Summary ---
Author Organization [facility] Address [address] [place] [address] Care Team Providers Care Stagecraft Professor Name Role Phone Jacquie Fair MD Primary Care Provider +1- [phone] Encounter Details Date Type Department Care Team (Late st Contact Info) Description 01/31/2022 Orders Only [facility] Medical [facility] Gynecology at [facility] [address] 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 Not on file Not on file Not on file documented as of this encounter Progress Notes * Frida Arias MD - 01/31/2022 4:23 PM CST Surgery scheduling orders: Diagnosis: Menorrhagia Surgeon: Dr. Arias Procedure: Hysteroscopy. NovaSure endometrial ablation. Desired location: [facility] Case classification: Elective Length of case: 1 hour Preferred dates/times: morning/afternoon Anesthesia: MAC Patient status: Outpatient Preop visit needed: Yes for pap and endometrial biopsy Additional labs requested: To be ordered Antibiotics: cefazolin PLUS metronidazole (possible colon resection) DVT prophylaxis: SCDs IVF type: lactated ringers 125 mL/hr Please schedule 2 week postoperative visit ISSARY WORKER * Neida Fletcher MA - 01/31/2022 4:23 PM CST Provider out on medical leave. Pt is to contact her PCP for appt assistance. ISSARY WORKER documented in this encounter Plan of Treatment Not on file documented as of this encounter Visit Diagnoses Not on filedocumented in this encounter Care Teams Stagecraft Professor Relationship Specialty Start Date End Date Jacquie Fair MD [address] [address] PCP - General Nurse Practitioner 01/31/22 documented as of this encounter
--- OUTSIDE RECORDS SUMMARY | 2024-02-27 10:25 | XMS_ITS | Encounter Summary ---
Author Organization [facility] Healthcare Address [address] [place] [address] Care Team Providers Care Pad Machine Offbearer Name Role Phone Unavailable Primary Care Provider Unavailabl e Encounter Details Date Type Department Care Team (Late st Contact Info) Description 11/02/2021 Orders Only Obstetrics [place] [id number] [address] Social History Tobacco Use Types Packs/Day Years Used Date Smoking Tobacco: Never Assessed Comments Unknown Sex and Gender Information Value Date Recorded Sex Assigned at Not on file Legal Sex Female 1:54 PM CDT Gender Identity Not on file Sexual Orientation Not on file documented as of this encounter Plan of Treatment Not on file documented as of this encounter Visit Diagnoses Not on filedocumented in this encounter
--- OUTSIDE RECORDS SUMMARY | 2024-02-27 10:25 | XMS_ITS | Encounter Summary ---
Author Organization [facility] Address [address] [place] [address] Care Team Providers Care Associate Media Planner Name Role Phone Unavailable Primary Care Provider Unavailabl e Encounter Details Date Type Department Care Team (Late st Contact Info) Description 11/02/2021 Orders Only [facility] Gynecology at [facility] [address] [place] [address] [place] [address] [facility] [address] [place], [place] [id number] Menorrhagia with regular cycle (Primary Dx) Social History Tobacco Use Types Packs/Day Years Used Date Smoking Tobacco: Never Assessed Comments Unknown Sex and Gender Information Value Date Recorded Sex Assigned at Not on file Legal Sex Female 1:54 PM CDT Gender Identity Not on file Sexual Orientation Not on file documented as of this encounter Progress Notes * Frida Arias MD - 11/02/2021 2:39 PM CDT Wendy Carrasquillo put in an order for a pelvic ultrasound to be done at [facility] on [address]. She will need to call [phone] to schedule this. Her appointment with me is scheduled for 01/31/22. OK to move it up if there is an available time. * Neida Fletcher MA - 11/02/2021 2:39 PM CDT Message left requesting return call for instructions. documented in this encounter Plan of Treatment Not on file documented as of this encounter Visit Diagnoses Diagnosis Menorrhagia with regular cycle- Primary documented in this encounter
== END 2024-02-23 00:59 | disposition home or self-care (01) ==
PROVIDERS: Emergency Provider Student in an Organized Health Care Education/Training Program; PCP Nurse Practitioner
DX: S01.01XA Laceration without foreign body of scalp, initial encounter (principal); W19.XXXA Unspecified fall, initial encounter; F90.9 Attention-deficit hyperactivity disorder, unspecified type
CPT/HCPCS: 12002; 99282